=== PATIENT | male | born 1945 | race Caucasian/White ===

== ENCOUNTER 2017-11-06 10:37 | Inpatient (IN) | payer MEDICARE, OTHER ==
[~2017-11-06] VITALS: Ht 188 cm; Wt 91.3 kg
[2017-11-06] MEDS ORDERED: NS IV 1000 ML 1,000 ML IV ONE (10:54)
[2017-11-06 11:23] LABS: BASOPHILS % (AUTO) 0 % (0-10); EOSINOPHILS # (AUTO) 0.1 10^3/uL (0.0-0.3); EOSINOPHILS % (AUTO) 1 % (0-10); HEMATOCRIT 35 % (40-54); HEMOGLOBIN 11.3 G/DL (13.3-17.7); LYMPHOCYTES # (AUTO) 1.5 X 10^3 (1.0-4.0); LYMPHOCYTES % (AUTO) 11 % (12-44); MEAN CORPUSCULAR HEMOGLOBIN 26 PG (25-34); MEAN CORPUSCULAR HGB CONC 32 G/DL (32-36); MEAN CORPUSCULAR VOLUME 82 FL (80-99); MEAN PLATELET VOLUME 8.3 FL (7.4-10.4); MONOCYTES # (AUTO) 0.9 X 10^3 (0.0-1.0); MONOCYTES % (AUTO) 7 % (0-12); NEUTROPHILS % (AUTO) 82 % (42-75); PLATELET COUNT 438 10^3/uL (130-400); RED CELL DISTRIBUTION WIDTH 15.2 % (10.0-14.5); WHITE BLOOD COUNT 13.5 10^3/uL (4.3-11.0)
--- NOTE | 2017-11-06 11:29 | ED General ---
General Chief Complaint: Skin/Wound Problems Stated Complaint: WOUND ISSUE Source of Information: Patient Exam Limitations: No Limitations History of Present Illness Date Seen by Provider: Nov 06, 2017 Time Seen by Provider: 10:49 Initial Comments Here with leg wound on the left that is on the lateral aspect of the stump of the below the knee amputation. He was seen in wound care today and found to have macerated, bleeding, foul-smelling wound with distal stump also with skin maceration and skin changes. The left stump has surrounding erythema completely surrounding the leg below the knee. The right stump has lateral/ posterior maceration. Wound care team is concerned about sepsis. Patient arrives tachycardic but normal blood pressure. Denies recent fever or chills. Denies nausea, vomiting or diarrhea. States he's been eating and drinking okay. Timing/Duration: 1 Week, Getting Worse Severity: Moderate Associated Systoms: No Chest Pain, No Cough, No Fever/Chills, No Nausea/ Vomiting, No Shortness of Air, No Weakness Allergies and Home Medications Allergies Coded Allergies: No Known Drug Allergies (Unverified , 11/06/17) Patient Home Medication List Home Medication List Reviewed: Yes Constitutional: see HPI, No chills, No fever EENTM: no symptoms reported Respiratory: no symptoms reported, No cough, No short of breath Cardiovascular: see HPI, No chest pain, No edema Gastrointestinal: No abdominal pain, No nausea, No vomiting Genitourinary: no symptoms reported Musculoskeletal: see HPI, No muscle pain Skin: change in color, lesions Psychiatric/Neurological: No Symptoms Reported All Other Systems Reviewed Negative Unless Noted: Yes Past Buauxfc-Bctilo-Cxtthv Hx Patient Social History Alcohol Use: Denies Use Recreational Drug Use: No Smoking Status: Never a Smoker Recent Foreign Travel: No Contact w/Someone Who Travel: No Surgeries History of Surgeries: Yes Surgeries: Orthopedic Respiratory History of Respiratory Disorde: No Cardiovascular History of Cardiac Disorders: Yes Cardiac Disorders: High Cholesterol, Hypertension Neurological History of Neurological Disord: No Genitourinary History of Genitourinary Disor: No Gastrointestinal History of Gastrointestinal Di: No Musculoskeletal History of Musculoskeletal Dis: Yes Musculoskeletal Disorders: Amputee Endocrine History of Endocrine Disorders: Yes Endocrine Disorders: Diabetes, Insulin dep Reviewed Nursing Assessment Reviewed/Agree w Nursing PMH: Yes Family Medical History Significant Family History: No Pertinent Family Hx Physical Exam-Suspected Sepsis Physical Exam Vital Signs Vital Signs - First Documented 11/06/17 10:40 Temp 98.6 Pulse 114 Resp 16 B/P (MAP) 147/86 (106) Pulse Ox 96 O2 Delivery Room Air Capillary Refill : General Appearance: No Apparent Distress, WD/WN HEENT: PERRL/EOMI, Pharynx Normal Neck: Non Tender, Supple Respiratory: Lungs Clear, Normal Breath Sounds Cardiovascular: No Murmur, Tachycardia Gastrointestinal: Non Tender, Soft Back: Normal Inspection, No CVA Tenderness, No Vertebral Tenderness Extremity: Other (bilateral below the knee amputation. Bleeding wound to the left lower extremity below the knee on the lateral aspect. Wounds as described below.) Neurologic/Psychiatric: Alert, Oriented x3 Skin: warm/dry, other (erythema noted to the stump on the left lower extremity that surrounds the extremity completely. Macerated wounds lateral and posterior. Distal stump on the left has cauliflower skin appearance that has serous drainage. Both wounds were foul-smelling. Right stump has erythema lateral and posterior with large area of macerated wound posterior that is in better condition than the left leg. Mild tenderness bilateral to the distal lower extremities.) Focused Exam Evaluation Lactate Level Laboratory Tests 11/06/17 11:08: Lactic Acid Level 1.20 Lactic Acid Level Laboratory Tests Test 11/06/17 11:08 Lactic Acid Level 1.20 MMOL/L (0.50-2.00) Progress/Results/Core Measures Suspected Sepsis SIRS Temperature: Pulse: Respiratory Rate: Laboratory Tests 11/06/17 11:08: White Blood Count 13.5H Blood Pressure / Mean: Laboratory Tests 11/06/17 11:08: Lactic Acid Level 1.20 Laboratory Tests 11/06/17 11:08: Creatinine 0.79, INR Comment 1.0, Platelet Count 438H, Total Bilirubin 0.3 Results/Orders Lab Results Laboratory Tests Test 11/06/17 11:08 Range/Units White Blood Count 13.5 H 4.3-11.0 10^3/uL Red Blood Count 4.30 L 4.35-5.85 10^6/uL Hemoglobin 11.3 L 13.3-17.7 G/DL Hematocrit 35 L 40-54 % Mean Corpuscular Volume 82 80-99 FL Mean Corpuscular Hemoglobin 26 25-34 PG Mean Corpuscular Hemoglobin Concent 32 32-36 G/DL Red Cell Distribution Width 15.2 H 10.0-14.5 % Platelet Count 438 H 130-400 10^3/uL Mean Platelet Volume 8.3 7.4-10.4 FL Neutrophils (%) (Auto) 82 H 42-75 % Lymphocytes (%) (Auto) 11 L 12-44 % Monocytes (%) (Auto) 7 0-12 % Eosinophils (%) (Auto) 1 0-10 % Basophils (%) (Auto) 0 0-10 % Neutrophils # (Auto) 11.0 H 1.8-7.8 X 10^3 Lymphocytes # (Auto) 1.5 1.0-4.0 X 10^3 Monocytes # (Auto) 0.9 0.0-1.0 X 10^3 Eosinophils # (Auto) 0.1 0.0-0.3 10^3/uL Basophils # (Auto) 0.0 0.0-0.1 10^3/uL Prothrombin Time 13.2 12.2-14.7 SEC INR Comment 1.0 0.8-1.4 Activated Partial Thromboplast Time 37 H 24-35 SEC Sodium Level 133 L 135-145 MMOL/L Potassium Level 4.5 3.6-5.0 MMOL/L Chloride Level 97 L 98-107 MMOL/L Carbon Dioxide Level 26 21-32 MMOL/L Anion Gap 10 5-14 MMOL/L Blood Urea Nitrogen 12 7-18 MG/DL Creatinine 0.79 0.60-1.30 MG/DL Estimat Glomerular Filtration Rate > 60 BUN/Creatinine Ratio 15 Glucose Level 147 H 70-105 MG/DL Lactic Acid Level 1.20 0.50-2.00 MMOL/L Calcium Level 10.2 H 8.5-10.1 MG/DL Total Bilirubin 0.3 0.1-1.0 MG/DL Aspartate Amino Transf (AST/SGOT) 20 5-34 U/L Alanine Aminotransferase (ALT/SGPT) 14 0-55 U/L Alkaline Phosphatase 75 40-136 U/L Total Protein 7.8 6.4-8.2 GM/DL Albumin 4.1 3.2-4.5 GM/DL My Orders Orders - SANDRA MILAN MD Cbc With Automated Diff (11/06/17 10:54) Comprehensive Metabolic Panel (11/06/17 10:54) Lactic Acid Analyzer (11/06/17 10:54) Blood Culture (11/06/17 10:54) Sputum Culture (11/06/17 10:54) Protime With Inr (11/06/17 10:54) Partial Thromboplastin Time (11/06/17 10:54) Chest 1 View, Ap/Pa Only (11/06/17 10:54) O2 (11/06/17 10:54) Saline Lock/Iv-Start (11/06/17 10:54) Vital Signs Adult Sepsis Patie Q1H (11/06/17 10:54) Remove Rings In Anticipation O (11/06/17 10:54) Saline Lock/Iv-Start (11/06/17 10:54) Ns Iv 1000 Ml (Sodium Chloride 0.9%) (11/06/17 10:54) Cefepime Injection (Maxipime Injection) (11/06/17 12:51) Medications Given in ED Current Medications Medications Dose Ordered Sig/Sommer Route Start Time Stop Time Status Last Admin Dose Admin Sodium Chloride 1,000 ml @ 0 mls/hr Q0M ONCE IV 11/06/17 10:54 11/06/17 10:57 DC 11/06/17 11:25 1,000 MLS/HR Vital Signs/I&O Vital Sign - Last 12Hours 11/06/17 10:40 Temp 98.6 Pulse 114 Resp 16 B/P (MAP) 147/86 (106) Pulse Ox 96 O2 Delivery Room Air Capillary Refill : Progress Note : Progress Note Seen and evaluated. IV, labs, blood cultures, lactic acid and chest x-ray ordered. Normal saline 1 L bolus ordered. Monitor patient. 1230: Labs reviewed. Still concerns for cellulitis. Due to the diabetes and the odor of the wound, Pseudomonas is of concern. Unable to culture anything as this appears mostly topical call. I discussed the case with Dr. Barraza and she accepts patient for admission, inpatient status. Cefepime and clindamycin will be ordered as antibiotic choice given concerns of Pseudomonas and MRSA. I did discuss the case with Dr. Bautista at 1233 and he accepts patient for consult. Patient and family informed and agree with plan. Patient does have some findings of sepsis but does not meet severe sepsis or septic shock criteria does not require high volume fluid resuscitation at this time. Diagnostic Imaging Diagonstic Imaging: Xray Plain Films/CT/US/NM/MRI: chest Comments VIA [facility]. [place], [place] NAME: GEE QUIGLEY [facility] REC#: [id number] PT STATUS: REG ER : 1945 PHYSICIAN: SANDRA MILAN MD ADMIT DATE: 11/06/17/ER Draft Date of Exam:11/06/17 CHEST 1 VIEW, AP/PA ONLY INDICATION: Wound issue. PA chest obtained at 11:22 a.m. FINDINGS: Heart and mediastinal silhouette are normal in appearance. The lungs are clear. There is no pneumothorax or pleural fluid. IMPRESSION: Negative chest. Dictated on workstation # [id number] Dict: 11/06/17 1131 Trans: 11/06/17 1137 [id number] Interpreted by: JUSTIN OROZCO MD Electronically signed by: Departure Communication (Admissions) Time/Spoke to Admitting Phy: 12:30 Time/Spoke to Consulting Phy: 12:33 Impression Impression: Primary Impression: Cellulitis Qualified Codes: L03.119 - Cellulitis of unspecified part of limb Disposition: ADMITTED INPATIENT Condition: Stable Admissions Decision to Admit Reason: Admit from ER (General) Decision to Admit/Date: Nov 06, 2017 Time/Decision to Admit Time: 12:30 Departure-Patient Inst. Referrals: KIANNA BARAJAS (PCP/Family) Primary Care Physician SANDRA MILAN MD Nov 06, 2017 11:29
[2017-11-06 11:35] LABS: PROTHROMBIN TIME PATIENT 13.2 SEC (12.2-14.7)
--- NOTE | 2017-11-06 11:38 | Diagnostic Imaging Report ---
INDICATION: Wound issue. PA chest obtained at 11:22 a.m. FINDINGS: Heart and mediastinal silhouette are normal in appearance. The lungs are clear. There is no pneumothorax or pleural fluid. IMPRESSION: Negative chest. Dictated by: Dictated on workstation # [id number]
[2017-11-06 11:45] LABS: ALANINE AMINOTRANSFERASE 14 U/L (0-55); ALBUMIN 4.1 GM/DL (3.2-4.5); ALKALINE PHOSPHATASE 75 U/L (40-136); BILIRUBIN,TOTAL 0.3 MG/DL (0.1-1.0); BUN/CREATININE RATIO 15; CALCIUM 10.2 MG/DL (8.5-10.1); CARBON DIOXIDE 26 MMOL/L (21-32); CHLORIDE 97 MMOL/L (98-107); CREATININE SERUM 0.79 MG/DL (0.60-1.30); GFR ESTIMATED > 60; GLUCOSE 147 MG/DL (70-105); POTASSIUM 4.5 MMOL/L (3.6-5.0); SODIUM 133 MMOL/L (135-145); TOTAL PROTEIN 7.8 GM/DL (6.4-8.2)
[2017-11-06] MEDS ORDERED: LISI-552 PO (12:24)
[2017-11-06] MEDS ORDERED: CLOP75TA28 PO (12:24)
[2017-11-06] MEDS ORDERED: SIMV20TA3 PO (12:24)
[2017-11-06] MEDS ORDERED: INSN1U SQ ×2 (12:24→15:20)
[2017-11-06] MEDS ORDERED: INSU100V31 SQ ×2 (12:24→15:20)
[2017-11-06] MEDS ORDERED: CEFEPIME INJECTION 2,000 MG in NS (IVPB) 100 ML IV STA (12:51)
[2017-11-06 15:00] VITALS: BP 144/72
[2017-11-06] MEDS ORDERED: NS IV 1000 ML 1,000 ML ONE (15:16)
[2017-11-06] MEDS ORDERED: ASPI-983 PO (15:23)
[2017-11-06] MEDS: NS IV 1000 ML 1,000 ML IV SCH (15:31)
[2017-11-06] MEDS: CLINDAMYCIN 900 MG/50 ML IVPB 50 ML IV SCH ×2 (15:38→23:42)
[2017-11-06] MEDS ORDERED: INFLUENZA TRIvalent 2017-2018 0.5 ML/45 MCG SYR IM ONE (18:45)
[2017-11-06 19:30] VITALS: BP 130/70
--- NOTE | 2017-11-06 20:15 | Consultation ---
History of Present Illness History of Present Illness Patient Consulted On(caio/time) 11/06/17 20:01 Date Seen by Provider: Nov 06, 2017 Time Seen by Provider: 16:05 History of Present Illness consult for cellulitis requested by Dr Barraza. Patient is a 72 year old male with b/l bka. Patient was seen in wound care and sent to ER for further evaluation. Patient states that he has had redness to the skin for about 1 week. Not improving with anything and nothing seeming to make worse. He has had cauliflower skin changes to the distal left stump which began about 3 months ago and at same time had some skin color changes to this area as well. He has some maceration of skin on left lower extremity that is actively oozing. He does have moderate discomfort in the extremity. Denies any fever. Denies n/v sweats chills shortness of breath or chest pain. Allergies and Home Medications Allergies Coded Allergies: No Known Drug Allergies (Unverified , 11/06/17) Home Medications Aspirin 81 Mg Tablet.dr, 81 MG PO DAILY, (Reported) Clopidogrel Bisulfate 75 Mg Tablet, 75 MG PO DAILY, (Reported) Insulin NPH Human Isophane 100 Unit/1 Ml Vial, 25 UNITS SQ DAILY, (Reported) Insulin NPH Human Isophane 100 Unit/1 Ml Vial, 20 UNITS SQ 1930, (Reported) Insulin Regular, Human 100 Unit/1 Ml Vial, 6 UNITS SQ DAILY, (Reported) Insulin Regular, Human 100 Unit/1 Ml Vial, 5 UNITS SQ 1930, (Reported) Lisinopril 20 Mg Tablet, 20 MG PO DAILY, (Reported) Simvastatin 20 Mg Tablet, 20 MG PO HS, (Reported) Patient Home Medication List Home Medication List Reviewed: Yes Past Jkahzel-Citubj-Lbjnbk Hx Patient Social History Alcohol Use: Denies Use Recreational Drug Use: No Smoking Status: Never a Smoker 2nd Hand Smoke Exposure: No Recent Foreign Travel: No Contact w/Someone Who Travel: No Recent Infectious Disease Expo: No Recent Hopitalizations: No Physical Abuse Screen: No Sexual Abuse: No Immunizations Up To Date Date of Pneumonia Vaccine: Jun 08, 2013 Seasonal Allergies Seasonal Allergies: No Surgeries History of Surgeries: Yes Surgeries: Orthopedic Respiratory History of Respiratory Disorde: No Cardiovascular History of Cardiac Disorders: Yes Cardiac Disorders: High Cholesterol, Hypertension Neurological History of Neurological Disord: Yes Neurological Disorders: TIA Genitourinary History of Genitourinary Disor: Yes Genitourinary Disorders: Benign Prostatic Hyperpl Gastrointestinal History of Gastrointestinal Di: No Musculoskeletal History of Musculoskeletal Dis: Yes Musculoskeletal Disorders: Amputee Endocrine History of Endocrine Disorders: Yes Endocrine Disorders: Diabetes, Insulin dep HEENT History of HEENT Disorders: Yes (WEARS GLASSES) Cancer History of Cancer: No Psychosocial History of Psychiatric Problem: No Integumentary History of Skin or Integumenta: No Blood Transfusions History of Blood Disorders: No Reviewed Nursing Assessment Reviewed/Agree w Nursing PMH: Yes Family Medical History Significant Family History: No Pertinent Family Hx Review of Systems-General Constitutional: no symptoms reported EENTM: no symptoms reported Respiratory: no symptoms reported Cardiovascular: no symptoms reported Gastrointestinal: no symptoms reported Genitourinary: no symptoms reported Musculoskeletal: see HPI Skin: see HPI Psychiatric/Neurological: No Symptoms Reported Physical Exam-General Problems Physical Exam Vital Signs Vital Signs - First Documented Capillary Refill : Greater Than 3 Seconds General Appearance: no apparent distress HEENT: normal ENT inspection Neck: supple, normal inspection Respiratory: no respiratory distress, no accessory muscle use Cardiovascular: tachycardia Gastrointestinal: non tender, soft, no organomegaly, no pulsatile mass Rectal: deferred Back: normal inspection Extremities: other (left lower ext c bka surrounding errythematous changes and slight maceration to skin with oozing of blood from pinpoint break in skin. 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 nml as tested, no motor/sensory deficits, alert, normal mood/affect, oriented x 3 Skin: other (erythema and skin changes as noted above) Lymphatic: no adenopathy Data Review Labs Laboratory Tests 11/06/17 11:08: White Blood Count 13.5H, Red Blood Count 4.30L, Hemoglobin 11.3L, Hematocrit 35L , Mean Corpuscular Volume 82, Mean Corpuscular Hemoglobin 26, Mean Corpuscular Hemoglobin Concent 32, Red Cell Distribution Width 15.2H, Platelet Count 438H, Mean Platelet Volume 8.3, Neutrophils (%) (Auto) 82H, Lymphocytes (%) (Auto) 11L , Monocytes (%) (Auto) 7, Eosinophils (%) (Auto) 1, Basophils (%) (Auto) 0, Neutrophils # (Auto) 11.0H, Lymphocytes # (Auto) 1.5, Monocytes # (Auto) 0.9, Eosinophils # (Auto) 0.1, Basophils # (Auto) 0.0, Prothrombin Time 13.2, INR Comment 1.0, Activated Partial Thromboplast Time 37H, Sodium Level 133L, Potassium Level 4.5, Chloride Level 97L, Carbon Dioxide Level 26, Anion Gap 10, Blood Urea Nitrogen 12, Creatinine 0.79, Estimat Glomerular Filtration Rate > 60 , BUN/Creatinine Ratio 15, Glucose Level 147H, Lactic Acid Level 1.20, Calcium Level 10.2H, Total Bilirubin 0.3, Aspartate Amino Transf (AST/SGOT) 20, Alanine Aminotransferase (ALT/SGPT) 14, Alkaline Phosphatase 75, Total Protein 7.8, Albumin 4.1 Assessment/Plan Assessment/Plan Assessment/Plan bilateral cellulitis history of bilateral below knee amputations dm Patient with slight ooze from left lower extremity at macerated skin, bandage applied I don't see any other drainage at this time, at the distal stump I feel is more chronic skin changes continue with IV antibiotics, medical management will follow no surgical intervention at this time. Clinical Quality Measures DVT/VTE Risk/Contraindication: Risk Factor Score Per Nursin RFS Level Per Nursing on Admit: 3=High GALO GRIFFIN DO Nov 06, 2017 20:15
[2017-11-06] MEDS: inSUlin (REGULAR) HUMAN 1 UNIT/0.01 ML (CHARGE PER UNIT) SC SCH (20:50)
[2017-11-06] MEDS: CEFEPIME IV SCH ×2 (21:05)
[2017-11-06] MEDS: NS IV SCH ×2 (21:05)
[2017-11-07] VITALS (7 sets, daily range): BP systolic 114–152; BP diastolic 57–71
[2017-11-07] MEDS: NS IV 1000 ML 1,000 ML IV SCH ×4 (02:32→23:46)
[2017-11-07] MEDS: CEFEPIME IV SCH ×6 (05:22→20:59)
[2017-11-07] MEDS: NS IV SCH ×6 (05:22→20:59)
[2017-11-07] MEDS: inSUlin (REGULAR) HUMAN 1 UNIT/0.01 ML (CHARGE PER UNIT) SC SCH ×4 (05:25→21:02)
[2017-11-07 06:39] LABS: BASOPHILS % (AUTO) 0 % (0-10); EOSINOPHILS # (AUTO) 0.2 10^3/uL (0.0-0.3); EOSINOPHILS % (AUTO) 3 % (0-10); HEMATOCRIT 33 % (40-54); HEMOGLOBIN 10.1 G/DL (13.3-17.7); LYMPHOCYTES # (AUTO) 1.6 X 10^3 (1.0-4.0); LYMPHOCYTES % (AUTO) 26 % (12-44); MEAN CORPUSCULAR HEMOGLOBIN 26 PG (25-34); MEAN CORPUSCULAR HGB CONC 31 G/DL (32-36); MEAN CORPUSCULAR VOLUME 83 FL (80-99); MEAN PLATELET VOLUME 8.3 FL (7.4-10.4); MONOCYTES # (AUTO) 0.7 X 10^3 (0.0-1.0); MONOCYTES % (AUTO) 12 % (0-12); NEUTROPHILS # (AUTO) 3.6 X 10^3 (1.8-7.8); NEUTROPHILS % (AUTO) 59 % (42-75); PLATELET COUNT 368 10^3/uL (130-400); RED BLOOD COUNT 3.91 10^6/uL (4.35-5.85); RED CELL DISTRIBUTION WIDTH 15.4 % (10.0-14.5); WHITE BLOOD COUNT 6.1 10^3/uL (4.3-11.0)
[2017-11-07] MEDS: CLINDAMYCIN 900 MG/50 ML IVPB 50 ML IV SCH ×3 (06:57→23:28)
[2017-11-07 07:07] LABS: ALANINE AMINOTRANSFERASE 14 U/L (0-55); ALBUMIN 3.5 GM/DL (3.2-4.5); ALKALINE PHOSPHATASE 62 U/L (40-136); BILIRUBIN,TOTAL 0.3 MG/DL (0.1-1.0); BUN/CREATININE RATIO 14; CALCIUM 8.7 MG/DL (8.5-10.1); CARBON DIOXIDE 26 MMOL/L (21-32); CHLORIDE 105 MMOL/L (98-107); CREATININE SERUM 0.71 MG/DL (0.60-1.30); GFR ESTIMATED > 60; GLUCOSE 99 MG/DL (70-105); POTASSIUM 4.1 MMOL/L (3.6-5.0); SODIUM 139 MMOL/L (135-145); TOTAL PROTEIN 6.7 GM/DL (6.4-8.2)
--- NOTE | 2017-11-07 08:04 | History & Physicial (CHS) ---
HPI Attending Physician Chasity Payton DO PCP Scott Araujo Cfnp Consult Date of Admission Nov 06, 2017 at 13:00 Home Medications Home Medications Reviewed patient Home Medication Reconciliation performed by pharmacy medication reconciliations mechanical assembly technician and/or nursing. Patients Allergies have been reviewed. Allergies Coded Allergies: No Known Drug Allergies (Unverified , 11/06/17) TJF-Anqrov-Tahqte Hx Patient Social History Alcohol Use: Denies Use Recreational Drug Use: No Smoking Status: Never a Smoker 2nd Hand Smoke Exposure: No Recent Foreign Travel: No Contact w/other who traveled: No Recent Hopitalizations: No Recent Infectious Disease Expo: No Physical Abuse Screen: No Sexual Abuse: No Immunizations Up To Date Date of Pneumonia Vaccine: Jun 08, 2013 Family Medical History Significant Family History: No Pertinent Family Hx Physical Exam-(CH[facility]) Physical Exam Vital Signs VS - Last 72 Hours, by Label 11/06/17 11/06/17 11/06/17 11/06/17 10:40 10:40 15:00 15:00 Temp 98.6 98.6 97.2 Pulse 114 101 104 Resp 16 18 20 B/P (MAP) 147/86 (106) 148/80 144/72 (96) Pulse Ox 96 96 93 96 O2 Delivery Room Air Room Air Room Air 11/06/17 11/06/17 11/07/17 11/07/17 19:30 20:45 00:00 04:04 Temp 97.1 97.5 98.1 Pulse 99 90 85 Resp 20 18 16 B/P (MAP) 130/70 (90) 133/71 (91) 132/65 (87) Pulse Ox 96 96 96 97 O2 Delivery Room Air Room Air Room Air Capillary Refill : Greater Than 3 Seconds Clinical Quality Measures DVT/VTE Risk/Contraindication: Risk Factor Score Per Nursin RFS Level Per Nursing on Admit: 3=High CHASITY PAYTON DO Nov 07, 2017 08:03
--- NOTE | 2017-11-07 14:43 | Physical Therapy Evaluation ---
PT Evaluation-General Medical Diagnosis Admission Date Nov 06, 2017 at 13:00 Medical Diagnosis: cellulitis Onset Date: Nov 06, 2017 Therapy Diagnosis Therapy Diagnosis: impaired mobility Height/Weight Height (Feet): 6 Height (Inches): 2.00 Weight (Pounds): 201 Weight (Ounces): 5.0 Precautions Precautions/Isolations: Fall Prevention, Standard Precautions Weight Bear Status Right Lower Extremity: Right Non Weight Bearing Left Lower Extremity: Left Non Weight Bearing Referral Physician: Chasity Barraza DO Reason for Referral: Evaluation/Treatment Medical History Pertinent Medical History: DM, HTN Additional Medical History high cholesterol, TIA, BPH, previous bilateral BKA Current History seen in wound care and sent to ER for further evaluation -> bilateral cellulitis Social History Home: Single Level Current Living Status: Children Entry Into Home: Stairs With Railing Patient states his niece lives with him. Prior/Core FIM Prior Level of Function Functional [place] Measure 0=Not Assessed/NA 4=Minimal Assistance 1=Total Assistance 5=Supervision or Setup 2=Maximal Assistance 6=Modified [place] 3=Moderate Assistance 7=Complete [place] Bed Mobility: 7 Transfers (B,C,W/C) (FIM): 6 Gait: 6 Patient states he normally uses bilateral prosthesis and a single point cane to ambulate. PT Evaluation-Current Subjective Patient in wheelchair at bedside pre tx, agrees to PT, no complaints of pain. Patient has bilateral BKA, a bandage on his left leg below the knee and a cauliflower formation at the end of his left stump. Pt/Family Goals "to get my infection better" Objective Patient Orientation: Person, Place, Situation Attachments: IV ROM/Strength ROM Lower Extremities WNL Strength Lower Extremities NT due to infection Neuromuscular (Tone, Coordination, Reflexes) NT Sensory Vision: Functional Hearing: Functional Sensation Right Lower Extremit: Intact Sensation Left Lower Extremity: Intact Sensation Lower Extremities Patient had intact light touch sensation on both stumps. Transfers Functional [place] Measure 0=Not Assessed/NA 4=Minimal Assistance 1=Total Assistance 5=Supervision or Setup 2=Maximal Assistance 6=Modified [place] 3=Moderate Assistance 7=Complete [place] Transfers (B, C, W/C) (FIM): 5 Scootin Rollin Supine to/from Sit: 6 bed t/f WC(FIM only if WC use): 5 Patient went from bed to wheelchair using only his arms with SBA, he did not need a sliding board. He says that his how he does it at home. Wheelchair Training Wheelchair (FIM): 6 Assessment/Needs Patient states that he has not had a decline in function and he performs transfers and bed mobility just like he did before coming to the hospital. Patient is a his normal level of functional mobility. PT will discharge patient at this time. Rehab Potential: Good PT Plan Problem List Problem List: Other Treatment/Plan Treatment Plan: Discontinue PT Treatment Plan: Other Treatment Duration: Nov 07, 2017 Frequency: Estimated Hrs Per Day: Other Patient and/or Family Agrees t: Yes Safety Risks/Education Patient Education: Transfer Techniques, Correct Positioning, Safety Issues Teaching Recipient: Patient Teaching Methods: Demonstration, Discussion Response to Teaching: Verbalize Understanding Discharge Recommendations Plan DC Therapy D/C Recommendations: Home w/ Family Support Time/GCodes Time In: 1320 Time Out: 1335 Total Billed Treatment Time: 15 Total Billed Treatment 1 visit YAAKOV ETIENNE PT Nov 07, 2017 14:43
--- NOTE | 2017-11-07 16:27 | Progress Note ---
Subjective Date Seen by Provider: Nov 07, 2017 Time Seen by Provider: 11:36 Subjective/Events-last exam Patient doing the same today. Minimal discomfort to the lower extremities. Patient states that the redness seems to have gone down. The bleeding is stopped from the left lower extremity. His white count has improved. He denies any nausea vomiting fever sweats chills shortness of breath or chest pain. Focused Exam Evaluation Lactate Level Laboratory Tests 11/06/17 11:08: Lactic Acid Level 1.20 Objective Exam Vital Signs Date Time Temp Pulse Resp B/P (MAP) Pulse Ox O2 Delivery O2 Flow Rate FiO2 11/07/17 15:33 98.2 82 18 117/59 (78) 97 Room Air 11/07/17 12:00 98.4 96 18 131/69 (89) 96 Room Air 11/07/17 08:00 95 Room Air 11/07/17 07:50 98.3 85 16 134/66 (88) 95 11/07/17 04:04 98.1 85 16 132/65 (87) 97 Room Air 11/07/17 00:00 97.5 90 18 133/71 (91) 96 Room Air 11/06/17 20:45 96 Room Air 11/06/17 19:30 97.1 99 20 130/70 (90) 96 I & O 11/07/17 07:00 Intake Total 4640 ml Output Total 2725 ml Balance 1915 ml Capillary Refill : Greater Than 3 Seconds General Appearance: No Apparent Distress, WD/WN HEENT: PERRL/EOMI, Pharynx Normal Neck: Non Tender, Supple Cardiovascular: Regular Rate, Rhythm Gastrointestinal: non tender, soft, no organomegaly, no pulsatile mass Extremity: Other (bilateral below the knee amputation. Bleeding wound has stopped to the left lower extremity below the knee on the lateral aspect. Still some macerated-appearing skin and less erythema. Cauliflower-appearing stump on the left lower extremity, still with some slight skin discoloration going lateral to posteriorly. Right lower extremity with decreased erythema on the lateral aspect.) Neurologic/Psychiatric: Alert, Oriented x3 Skin: Erythema (As noted above) Results Lab Laboratory Tests 11/06/17 20:20: Glucometer 129H 11/07/17 05:23: Glucometer 89 11/07/17 05:50: White Blood Count 6.1, Red Blood Count 3.91L, Hemoglobin 10.1L, Hematocrit 33L, Mean Corpuscular Volume 83, Mean Corpuscular Hemoglobin 26, Mean Corpuscular Hemoglobin Concent 31L, Red Cell Distribution Width 15.4H, Platelet Count 368, Mean Platelet Volume 8.3, Neutrophils (%) (Auto) 59, Lymphocytes (%) (Auto) 26, Monocytes (%) (Auto) 12, Eosinophils (%) (Auto) 3, Basophils (%) (Auto) 0, Neutrophils # (Auto) 3.6, Lymphocytes # (Auto) 1.6, Monocytes # (Auto) 0.7, Eosinophils # (Auto) 0.2, Basophils # (Auto) 0.0, Sodium Level 139, Potassium Level 4.1, Chloride Level 105, Carbon Dioxide Level 26, Anion Gap 8, Blood Urea Nitrogen 10, Creatinine 0.71, Estimat Glomerular Filtration Rate > 60, BUN/ Creatinine Ratio 14, Glucose Level 99, Calcium Level 8.7, Total Bilirubin 0.3, Aspartate Amino Transf (AST/SGOT) 18, Alanine Aminotransferase (ALT/SGPT) 14, Alkaline Phosphatase 62, Total Protein 6.7, Albumin 3.5 11/07/17 10:11: Glucometer 224H 11/07/17 14:43: Glucometer 316H Assessment/Plan Assessment/Plan Assessment/Plan bilateral cellulitis history of bilateral below knee amputations dm We'll continue medical management with IV antibiotics. The bleeding is stopped from the macerated wound on the left lower extremity. No drainage from wounds. No surgical intervention at this time. Wound care Clinical Quality Measures DVT/VTE Risk/Contraindication: Risk Factor Score Per Nursin RFS Level Per Nursing on Admit: 3=High GALO GRIFFIN DO Nov 07, 2017 16:27
--- NOTE | 2017-11-07 18:47 | Wound Care Assessment ---
Wound Care Assessment Date Seen by Provider: Nov 07, 2017 Time Seen by Provider: 18:40 Chief Complaint Infected L BKA. HPI The patient is a 72 year old male with long-standing bilateral BKA. The patient is fully ambulatory with prostheses. The patient was admitted from advanced wound care yesterday through the ER, due to a grossly cellulitic and weeping, excoriated, macerated L BKA stump. The appearance of the wound is much improved on current antibiotics, but the cellulitis is not resolved enough to switch to oral meds. Curiously, the weight bearing end of the BKA is covered with a large verruca -- 14.0 x 13.0 x 1.1 cm. The maceration has improved with the patient at bedrest with the prosthesis off. Past Medical History: Admits Diabetes Type II, Admits Peripheral Artery Disease Bilateral BKA in remote past. Smoking Status: Never a Smoker Recreational Drug Use: No Alcohol Use: Denies Use Review of Systems General: No Chills Pulmonary: No Dyspnea Cardiovascular: No: Chest Pain Exam Vital Signs Date Time Temp Pulse Resp B/P (MAP) Pulse Ox O2 Delivery O2 Flow Rate FiO2 11/07/17 15:33 98.2 82 18 117/59 (78) 97 Room Air Capillary Refill : Greater Than 3 Seconds General Appearance: no apparent distress Respiratory: no respiratory distress Skin: other (large Verrucous lesion of L BKA stump, 14.0 x 13.0 x 1.1 cm, warty appearance.) Results Laboratory Tests 11/06/17 20:20: Glucometer 129H 11/07/17 05:23: Glucometer 89 11/07/17 05:50: White Blood Count 6.1, Red Blood Count 3.91L, Hemoglobin 10.1L, Hematocrit 33L, Mean Corpuscular Volume 83, Mean Corpuscular Hemoglobin 26, Mean Corpuscular Hemoglobin Concent 31L, Red Cell Distribution Width 15.4H, Platelet Count 368, Mean Platelet Volume 8.3, Neutrophils (%) (Auto) 59, Lymphocytes (%) (Auto) 26, Monocytes (%) (Auto) 12, Eosinophils (%) (Auto) 3, Basophils (%) (Auto) 0, Neutrophils # (Auto) 3.6, Lymphocytes # (Auto) 1.6, Monocytes # (Auto) 0.7, Eosinophils # (Auto) 0.2, Basophils # (Auto) 0.0, Sodium Level 139, Potassium Level 4.1, Chloride Level 105, Carbon Dioxide Level 26, Anion Gap 8, Blood Urea Nitrogen 10, Creatinine 0.71, Estimat Glomerular Filtration Rate > 60, BUN/ Creatinine Ratio 14, Glucose Level 99, Calcium Level 8.7, Total Bilirubin 0.3, Aspartate Amino Transf (AST/SGOT) 18, Alanine Aminotransferase (ALT/SGPT) 14, Alkaline Phosphatase 62, Total Protein 6.7, Albumin 3.5 11/07/17 10:11: Glucometer 224H 11/07/17 14:43: Glucometer 316H Microbiology 11/06/17 Blood Culture - Preliminary, Resulted No growth Microbiology 11/06/17 Blood Culture - Preliminary, Resulted No growth 11/06/17 Blood Culture - Preliminary, Resulted No growth Assessment/Plan/Dx 1. Cellulitis of L BKA stump. 2. Verrucous lesion of L BKA stump, contributing moisture to wound environment. 3. R/O malignancy/atypical cutaneous infection. Plan: The patient was recommended to have diagnostic biopsy for histology and culture. Following a time out in which the patient and site were confirmed by two methods, the area was painted with Betadine solution, anesthetized with 1% Lidocaine injectable. Multiple punch biopsies were obtained from the lateral anterior portion of the lesion. These were submitted for histology, aerobic, anaerobic, and fungal cultures. Minimal bleeding was controlled with pressure. The patient tolerated the procedure well with minimal pain during and after the procedure. KIANNA PERES MD Nov 07, 2017 18:47
[2017-11-07] MEDS: SIMvastatin 20 MG (ZOCOR) TAB PO SCH (20:59)
[2017-11-08] MEDS: CEFEPIME IV SCH ×6 (05:20→22:06)
[2017-11-08] MEDS: NS IV SCH ×6 (05:20→22:06)
[2017-11-08] MEDS: inSUlin (REGULAR) HUMAN 1 UNIT/0.01 ML (CHARGE PER UNIT) SC SCH ×4 (06:40→20:39)
[2017-11-08] MEDS: CLINDAMYCIN 900 MG/50 ML IVPB 50 ML IV SCH ×3 (06:40→23:32)
[2017-11-08 06:56] LABS: BASOPHILS % (AUTO) 0 % (0-10); EOSINOPHILS # (AUTO) 0.3 10^3/uL (0.0-0.3); EOSINOPHILS % (AUTO) 4 % (0-10); HEMATOCRIT 32 % (40-54); HEMOGLOBIN 10.3 G/DL (13.3-17.7); LYMPHOCYTES # (AUTO) 1.4 X 10^3 (1.0-4.0); LYMPHOCYTES % (AUTO) 25 % (12-44); MEAN CORPUSCULAR HEMOGLOBIN 26 PG (25-34); MEAN CORPUSCULAR HGB CONC 32 G/DL (32-36); MEAN CORPUSCULAR VOLUME 81 FL (80-99); MEAN PLATELET VOLUME 7.9 FL (7.4-10.4); MONOCYTES # (AUTO) 0.6 X 10^3 (0.0-1.0); MONOCYTES % (AUTO) 11 % (0-12); NEUTROPHILS # (AUTO) 3.4 X 10^3 (1.8-7.8); NEUTROPHILS % (AUTO) 60 % (42-75); PLATELET COUNT 365 10^3/uL (130-400); RED BLOOD COUNT 3.97 10^6/uL (4.35-5.85); RED CELL DISTRIBUTION WIDTH 15.3 % (10.0-14.5); WHITE BLOOD COUNT 5.7 10^3/uL (4.3-11.0)
[2017-11-08 07:19] LABS: BUN/CREATININE RATIO 14; CALCIUM 8.8 MG/DL (8.5-10.1); CARBON DIOXIDE 26 MMOL/L (21-32); CHLORIDE 105 MMOL/L (98-107); CREATININE SERUM 0.69 MG/DL (0.60-1.30); GFR ESTIMATED > 60; GLUCOSE 163 MG/DL (70-105); MAGNESIUM 2.1 MG/DL (1.8-2.4); POTASSIUM 4.3 MMOL/L (3.6-5.0); SODIUM 136 MMOL/L (135-145)
[2017-11-08 08:00] VITALS: BP 157/75
[2017-11-08] MEDS: CLOPIDOGREL 75 MG (PLAVIX) TABLET PO SCH (09:09)
[2017-11-08] MEDS: ASPIRIN E.C. 81 MG (ECOTRIN) TAB PO SCH (09:09)
[2017-11-08] MEDS: lisINopril 20 MG (PRINIVIL) TABLET PO SCH (09:09)
[2017-11-08] MEDS: NS IV 1000 ML 1,000 ML IV SCH ×2 (11:17→23:32)
--- NOTE | 2017-11-08 11:24 | Progress Note (SOAP) ---
Focused Exam Evaluation Lactate Level Laboratory Tests 11/06/17 11:08: Lactic Acid Level 1.20 Objective Exam Last Set of Vital Signs Vital Signs Date Time Temp Pulse Resp B/P (MAP) Pulse Ox O2 Delivery O2 Flow Rate FiO2 11/08/17 08:00 Room Air 11/07/17 23:39 97.7 83 16 114/57 (76) 96 Capillary Refill : Greater Than 3 Seconds I&O Intake and Output 11/08/17 00:00 Intake Total 5930 ml Output Total 5275 ml Balance 655 ml Intake Oral 2380 ml IV Total 3550 ml Output Urine Total 5275 ml # Bowel Movements 2 Results/Procedures Lab Laboratory Tests 11/07/17 14:43: Glucometer 316H 11/07/17 20:14: Glucometer 238H 11/08/17 05:25: Glucometer 156H 11/08/17 06:45: White Blood Count 5.7, Red Blood Count 3.97L, Hemoglobin 10.3L, Hematocrit 32L, Mean Corpuscular Volume 81, Mean Corpuscular Hemoglobin 26, Mean Corpuscular Hemoglobin Concent 32, Red Cell Distribution Width 15.3H, Platelet Count 365, Mean Platelet Volume 7.9, Neutrophils (%) (Auto) 60, Lymphocytes (%) (Auto) 25, Monocytes (%) (Auto) 11, Eosinophils (%) (Auto) 4, Basophils (%) (Auto) 0, Neutrophils # (Auto) 3.4, Lymphocytes # (Auto) 1.4, Monocytes # (Auto) 0.6, Eosinophils # (Auto) 0.3, Basophils # (Auto) 0.0, Sodium Level 136, Potassium Level 4.3, Chloride Level 105, Carbon Dioxide Level 26, Anion Gap 5, Blood Urea Nitrogen 10, Creatinine 0.69, Estimat Glomerular Filtration Rate > 60, BUN/ Creatinine Ratio 14, Glucose Level 163H, Calcium Level 8.8, Magnesium Level 2.1 , C-Reactive Protein High Sensitivity 1.71H 11/08/17 10:40: Glucometer 274H Microbiology 11/06/17 Blood Culture - Preliminary, Resulted No growth Clinical Quality Measures DVT/VTE Risk/Contraindication: Risk Factor Score Per Nursin RFS Level Per Nursing on Admit: 3=BERNARD Galaviz DO Nov 08, 2017 11:24
--- NOTE | 2017-11-08 13:11 | Progress Note ---
Subjective Date Seen by Provider: Nov 08, 2017 Time Seen by Provider: 09:36 Subjective/Events-last exam No new complaints. Cellulitis is improving. No significant pain. Denies n/v fever sweats chills shortness of breath or chest pain. Hgb stable WBC down. Focused Exam Evaluation Lactate Level Laboratory Tests 11/06/17 11:08: Lactic Acid Level 1.20 Objective Exam Vital Signs Date Time Temp Pulse Resp B/P (MAP) Pulse Ox O2 Delivery O2 Flow Rate FiO2 11/08/17 08:00 Room Air 11/07/17 23:39 97.7 83 16 114/57 (76) 96 Room Air 11/07/17 19:55 96 Room Air 11/07/17 19:07 97.2 90 18 152/71 (98) 97 Room Air 11/07/17 15:33 98.2 82 18 117/59 (78) 97 Room Air I & O 11/08/17 07:00 Intake Total 4880 ml Output Total 6325 ml Balance -1445 ml Capillary Refill : Greater Than 3 Seconds General Appearance: No Apparent Distress, WD/WN HEENT: PERRL/EOMI, Pharynx Normal Neck: Non Tender, Supple Cardiovascular: Regular Rate, Rhythm Gastrointestinal: non tender, soft, no organomegaly, no pulsatile mass Extremity: Other (bilateral below the knee amputation. Still some macerated- appearing skin and erythema less. Cauliflower-appearing stump on the left lower extremity, still with some slight skin discoloration going lateral to posteriorly. Right lower extremity with decreased erythema on the lateral aspect.) Neurologic/Psychiatric: Alert, Oriented x3 Skin: Erythema (As noted above) Lymphatic: No Adenopathy Results Lab Laboratory Tests 11/07/17 14:43: Glucometer 316H 11/07/17 20:14: Glucometer 238H 11/08/17 05:25: Glucometer 156H 11/08/17 06:45: White Blood Count 5.7, Red Blood Count 3.97L, Hemoglobin 10.3L, Hematocrit 32L, Mean Corpuscular Volume 81, Mean Corpuscular Hemoglobin 26, Mean Corpuscular Hemoglobin Concent 32, Red Cell Distribution Width 15.3H, Platelet Count 365, Mean Platelet Volume 7.9, Neutrophils (%) (Auto) 60, Lymphocytes (%) (Auto) 25, Monocytes (%) (Auto) 11, Eosinophils (%) (Auto) 4, Basophils (%) (Auto) 0, Neutrophils # (Auto) 3.4, Lymphocytes # (Auto) 1.4, Monocytes # (Auto) 0.6, Eosinophils # (Auto) 0.3, Basophils # (Auto) 0.0, Sodium Level 136, Potassium Level 4.3, Chloride Level 105, Carbon Dioxide Level 26, Anion Gap 5, Blood Urea Nitrogen 10, Creatinine 0.69, Estimat Glomerular Filtration Rate > 60, BUN/ Creatinine Ratio 14, Glucose Level 163H, Calcium Level 8.8, Magnesium Level 2.1 , C-Reactive Protein High Sensitivity 1.71H 11/08/17 10:40: Glucometer 274H Microbiology 11/06/17 Blood Culture - Preliminary, Resulted No growth Assessment/Plan Assessment/Plan Assessment/Plan bilateral cellulitis history of bilateral below knee amputations dm We'll continue antibiotics. No drainage from wounds. No surgical intervention at this time. Wound care Clinical Quality Measures DVT/VTE Risk/Contraindication: Risk Factor Score Per Nursin RFS Level Per Nursing on Admit: 3=High GALO GRIFFIN DO Nov 08, 2017 13:11
[2017-11-08 16:13] VITALS: BP 137/71
[2017-11-08] MEDS ORDERED: LIDOCAINE 1% INJ 20 ML (XYLOCAINE) VIAL ONE (17:09)
[2017-11-08] MEDS: SIMvastatin 20 MG (ZOCOR) TAB PO SCH (20:39)
[2017-11-09] VITALS: BP 125/65
[2017-11-09 05:45] LABS: BASOPHILS % (AUTO) 1 % (0-10); EOSINOPHILS # (AUTO) 0.3 10^3/uL (0.0-0.3); EOSINOPHILS % (AUTO) 4 % (0-10); HEMATOCRIT 32 % (40-54); LYMPHOCYTES # (AUTO) 1.5 X 10^3 (1.0-4.0); LYMPHOCYTES % (AUTO) 25 % (12-44); MEAN CORPUSCULAR HEMOGLOBIN 26 PG (25-34); MEAN CORPUSCULAR HGB CONC 32 G/DL (32-36); MEAN CORPUSCULAR VOLUME 81 FL (80-99); MEAN PLATELET VOLUME 8.1 FL (7.4-10.4); MONOCYTES # (AUTO) 0.7 X 10^3 (0.0-1.0); MONOCYTES % (AUTO) 12 % (0-12); NEUTROPHILS # (AUTO) 3.5 X 10^3 (1.8-7.8); NEUTROPHILS % (AUTO) 58 % (42-75); PLATELET COUNT 364 10^3/uL (130-400); RED BLOOD COUNT 3.88 10^6/uL (4.35-5.85); RED CELL DISTRIBUTION WIDTH 15.1 % (10.0-14.5)
[2017-11-09 06:02] LABS: BUN/CREATININE RATIO 10; CALCIUM 8.6 MG/DL (8.5-10.1); CARBON DIOXIDE 26 MMOL/L (21-32); CHLORIDE 107 MMOL/L (98-107); CREATININE SERUM 0.67 MG/DL (0.60-1.30); GFR ESTIMATED > 60; GLUCOSE 126 MG/DL (70-105); MAGNESIUM 2.2 MG/DL (1.8-2.4); POTASSIUM 4.1 MMOL/L (3.6-5.0); SODIUM 139 MMOL/L (135-145)
[2017-11-09] MEDS: inSUlin (REGULAR) HUMAN 1 UNIT/0.01 ML (CHARGE PER UNIT) SC SCH ×3 (06:20→14:59)
[2017-11-09] MEDS: CEFEPIME IV SCH ×4 (06:27→14:39)
[2017-11-09] MEDS: NS IV SCH ×4 (06:27→14:39)
[2017-11-09] MEDS: CLINDAMYCIN 900 MG/50 ML IVPB 50 ML IV SCH (07:35)
[2017-11-09 08:00] VITALS: BP 130/63
--- NOTE | 2017-11-09 08:07 | Discharge Summary ---
Diagnosis/Chief Complaint Date of Admission Nov 06, 2017 at 13:00 Date of Discharge Discharge Summary-Simple/Stand Consultations Discharge Physical Examination Allergies: Coded Allergies: No Known Drug Allergies (Unverified , 11/06/17) Vitals & I&Os Vital Sign - Last 12Hours Date Time Temp Pulse Resp B/P (MAP) Pulse Ox O2 Delivery O2 Flow Rate FiO2 11/09/17 00:00 97.6 79 17 125/65 (85) 95 Room Air Intake and Output 11/09/17 00:00 Intake Total 1630 ml Output Total 2375 ml Balance -745 ml Hospital Course See final discharge diagnosis. Discharge Instructions to patient/family Please see electronic discharge instructions given to patient. Discharge Medications Reviewed and agree with Discharge Medication list on patient's Discharge Instruction sheet Clinical Quality Measures DVT/VTE Risk/Contraindication: Risk Factor Score Per Nursin RFS Level Per Nursing on Admit: 3=High BERNARD PAYTON DO Nov 09, 2017 08:07
[2017-11-09] MEDS: lisINopril 20 MG (PRINIVIL) TABLET PO SCH (09:19)
[2017-11-09] MEDS: ASPIRIN E.C. 81 MG (ECOTRIN) TAB PO SCH (09:19)
[2017-11-09] MEDS: CLOPIDOGREL 75 MG (PLAVIX) TABLET PO SCH (09:19)
[2017-11-09] MEDS: NS IV 1000 ML 1,000 ML IV SCH (11:39)
[2017-11-09] MEDS ORDERED: CLIN300C11 PO (12:45)
[2017-11-09] MEDS ORDERED: CEPH-507 PO (12:45)
--- NOTE | 2017-11-09 12:52 | Discharge Instructions ---
Discharge [facility] Discharge Medications New, Converted or Re-Newed RX: Transmitted to Pharmacy New Medications: Cephalexin (Keflex) 500 Mg Capsule 500 MG PO TID for 3 Days, #9 CAP 0 Refills Clindamycin HCl (Clindamycin HCl) 300 Mg Capsule 300 MG PO TID for 3 Days, #9 CAP 0 Refills Continued Medications: Aspirin (Aspirin EC) 81 Mg Tablet.dr 81 MG PO DAILY, TAB Clopidogrel Bisulfate (Clopidogrel) 75 Mg Tablet 75 MG PO DAILY Insulin NPH Human Isophane (Novolin N) 100 Unit/1 Ml Vial 25 UNITS SQ DAILY Insulin NPH Human Isophane (Novolin N) 100 Unit/1 Ml Vial 20 UNITS SQ 1930, VIAL Insulin Regular, Human (Novolin R) 100 Unit/1 Ml Vial 6 UNITS SQ DAILY Insulin Regular, Human (Novolin R) 100 Unit/1 Ml Vial 5 UNITS SQ 1930, VIAL Lisinopril (Lisinopril) 20 Mg Tablet 20 MG PO DAILY Simvastatin (Simvastatin) 20 Mg Tablet 20 MG PO HS Patient Instructions Patient Instructions -keep all follow up appointments -medication as directed Goal/Follow Up Appt: Dr. Snell - 11/13 as scheduled Lele Araujo - 11/13 at 1:[address] Rdz - next week Return to The Hospital For: chest pain or pressure, shortness of breath, nausea or vomiting that makes you unable to keep down medications or clear liquids for more than 12 hours, fever >101 unrelieved by tylenol or ibuprofen, pain uncontrolled by normally taken medications, if directed by stone rougher provider, or with any emergent complaints or concerns Activity & Diet Discharge Diet: ADA Diet Activity as Tolerated: Yes Orders-Post D/C & Referrals Dermatology Copy Copies To 1: [facility]/BERNARD SOTELO DO Nov 09, 2017 12:52
[2017-11-09 16:11] VITALS: BP 130/63
--- NOTE | 2017-11-09 20:54 | Progress Note ---
Subjective Date Seen by Provider: Nov 09, 2017 Time Seen by Provider: 09:17 Subjective/Events-last exam Patient leg doing well. Less erythema. Not having any pain in the legs. No new complaints. Denies n/v fever sweats chills shortness of breath or chest pain. Objective Exam Vital Signs Date Time Temp Pulse Resp B/P (MAP) Pulse Ox O2 Delivery O2 Flow Rate FiO2 11/09/17 16:11 82 20 130/63 95 Room Air 11/09/17 08:00 97.2 82 20 130/63 (85) 95 Room Air 11/09/17 08:00 Room Air 11/09/17 00:00 97.6 79 17 125/65 (85) 95 Room Air I & O 11/09/17 07:00 Intake Total 2130 ml Output Total 4175 ml Balance -2045 ml Capillary Refill : Greater Than 3 Seconds General Appearance: No Apparent Distress, WD/WN HEENT: PERRL/EOMI Neck: Non Tender, Supple Respiratory: No Accessory Muscle Use, No Respiratory Distress Cardiovascular: Regular Rate, Rhythm Gastrointestinal: non tender, soft, no organomegaly, no pulsatile mass Extremity: Other (bilateral below the knee amputation. Still some macerated- appearing skin but healing and erythema less. Cauliflower-appearing stump on the left lower extremity, still with some slight skin discoloration going lateral to posteriorly. Right lower extremity with minimal erythema on the lateral aspect.) Neurologic/Psychiatric: Alert, Oriented x3, No Motor/Sensory Deficits, Normal Mood/Affect Skin: Erythema (As noted above) Lymphatic: No Adenopathy Results Lab Laboratory Tests 11/09/17 05:10: White Blood Count 6.0, Red Blood Count 3.88L, Hemoglobin 10.0L, Hematocrit 32L, Mean Corpuscular Volume 81, Mean Corpuscular Hemoglobin 26, Mean Corpuscular Hemoglobin Concent 32, Red Cell Distribution Width 15.1H, Platelet Count 364, Mean Platelet Volume 8.1, Neutrophils (%) (Auto) 58, Lymphocytes (%) (Auto) 25, Monocytes (%) (Auto) 12, Eosinophils (%) (Auto) 4, Basophils (%) (Auto) 1, Neutrophils # (Auto) 3.5, Lymphocytes # (Auto) 1.5, Monocytes # (Auto) 0.7, Eosinophils # (Auto) 0.3, Basophils # (Auto) 0.0, Sodium Level 139, Potassium Level 4.1, Chloride Level 107, Carbon Dioxide Level 26, Anion Gap 6, Blood Urea Nitrogen 7, Creatinine 0.67, Estimat Glomerular Filtration Rate > 60, BUN/ Creatinine Ratio 10, Glucose Level 126H, Calcium Level 8.6, Magnesium Level 2.2 , C-Reactive Protein High Sensitivity 0.92H 11/09/17 05:34: Glucometer 130H 11/09/17 09:44: Glucometer 286H 11/09/17 14:32: Glucometer 291H Microbiology 11/06/17 Blood Culture - Preliminary, Resulted No growth 11/08/17 Gram Stain - Final, Resulted 11/08/17 Anaerobic Culture, Resulted Pending 11/08/17 Wound Culture - Preliminary, Resulted Strep agalactiae Group B Gram Negative Jordan Probable Enterococcus Species Strep Or Related Genus 11/08/17 Fungal Culture, Resulted Pending Assessment/Plan Assessment/Plan Assessment/Plan bilateral cellulitis history of bilateral below knee amputations dm Continues to improve overall Agree with Dc home today Patient discussed close blood glucose control Any worsening should be re-evaluated at that time. Clinical Quality Measures DVT/VTE Risk/Contraindication: Risk Factor Score Per Nursin RFS Level Per Nursing on Admit: 3=High GALO GRIFFIN DO Nov 09, 2017 20:54
== END 2017-11-09 16:21 | disposition home or self-care (01) | DRG 565 ==
LOC: EDUNIT# 10:37 → ER 10:39 → 4TH 13:00
PROVIDERS: ADMIT Family Medicine; ATTEND Family Medicine
PROC: 0HBLXZX Excision of Left Lower Leg Skin, External Approach, Diagnostic (ICD-10-PCS; principal; 2017-11-07)
DX: T87.44 Infection of amputation stump, left lower extremity (principal); T87.43 Infection of amputation stump, right lower extremity; L03.115 Cellulitis of right lower limb; L03.116 Cellulitis of left lower limb; E11.9 Type 2 diabetes mellitus without complications; I10 Essential (primary) hypertension; E78.00 Pure hypercholesterolemia, unspecified; N40.0 Benign prostatic hyperplasia without lower urinary tract symptoms; Z79.4 Long term (current) use of insulin; Z89.511 Acquired absence of right leg below knee; Z89.512 Acquired absence of left leg below knee
CPT/HCPCS: 36415; 71045; 80048; 80053; 82962; 83605; 83735; 85025; 85610; 85730; 86141; 87040; 87070; 87075; 87077; 87101; 87116; 87186; 87205; 96361; 96365; 96366

== ENCOUNTER → 2017-11-06 | Outpatient (CLI) | payer MEDICARE, OTHER ==
[~2017-11-06] MED LIST: ASPI-983 PO; CLOP75TA28 PO; INSN1U SQ; INSU100V31 SQ; LISI-552 PO; SIMV20TA3 PO
== END ==
LOC: WOUNDCARE 08:54
PROVIDERS: ATTEND Nurse Practitioner
DX: L03.116 Cellulitis of left lower limb (principal); Z89.512 Acquired absence of left leg below knee
CPT/HCPCS: 99202

== ENCOUNTER → 2017-11-13 | Outpatient (CLI) | payer MEDICARE, OTHER ==
[~2017-11-13] MED LIST changes: +CEPH-507 PO; +CLIN300C11 PO
== END ==
LOC: WOUNDCARE 10:49
PROVIDERS: ATTEND Nurse Practitioner
DX: L03.116 Cellulitis of left lower limb (principal); L97.122 Non-pressure chronic ulcer of left thigh with fat layer exposed; B36.9 Superficial mycosis, unspecified; Z89.512 Acquired absence of left leg below knee
CPT/HCPCS: 11042

== ENCOUNTER → 2017-11-22 | Outpatient (CLI) | payer MEDICARE, OTHER | LOC: WOUNDCARE 14:01 | PROVIDERS: ATTEND Nurse Practitioner | DX: L03.116 Cellulitis of left lower limb (principal); L97.122 Non-pressure chronic ulcer of left thigh with fat layer exposed; B36.9 Superficial mycosis, unspecified; Z89.512 Acquired absence of left leg below knee | CPT/HCPCS: 11042; 87070; 87075; 87101; 87205 ==

== ENCOUNTER → 2017-11-27 | Outpatient (CLI) | payer MEDICARE, OTHER | LOC: WOUNDCARE 10:01 | PROVIDERS: ATTEND Nurse Practitioner | DX: L97.122 Non-pressure chronic ulcer of left thigh with fat layer exposed (principal); L03.116 Cellulitis of left lower limb; B36.9 Superficial mycosis, unspecified; Z89.512 Acquired absence of left leg below knee | CPT/HCPCS: 11042 ==

== ENCOUNTER → 2017-12-04 | Outpatient (CLI) | payer MEDICARE, OTHER | LOC: WOUNDCARE 09:53 | PROVIDERS: ATTEND Nurse Practitioner | DX: L97.122 Non-pressure chronic ulcer of left thigh with fat layer exposed (principal); L03.116 Cellulitis of left lower limb; B36.9 Superficial mycosis, unspecified; Z89.512 Acquired absence of left leg below knee | CPT/HCPCS: 11042 ==

== ENCOUNTER → 2017-12-17 | Outpatient (CLI) | payer MEDICARE, OTHER | LOC: WOUNDCARE 10:02 | PROVIDERS: ATTEND Nurse Practitioner | DX: L97.122 Non-pressure chronic ulcer of left thigh with fat layer exposed (principal); L97.121 Non-pressure chronic ulcer of left thigh limited to breakdown of skin; L03.116 Cellulitis of left lower limb; B36.9 Superficial mycosis, unspecified; Z89.512 Acquired absence of left leg below knee | CPT/HCPCS: 11042; 97597 ==

== ENCOUNTER 2017-12-25 10:53 | Outpatient (RCR) | payer MEDICARE, OTHER ==
[2017-12-04 11:19] LABS: BUN/CREATININE RATIO 13; CALCIUM 9.5 MG/DL (8.5-10.1); CARBON DIOXIDE 29 MMOL/L (21-32); CHLORIDE 98 MMOL/L (98-107); CREATININE SERUM 1.03 MG/DL (0.60-1.30); GFR ESTIMATED > 60; GLUCOSE 224 MG/DL (70-105); POTASSIUM 4.7 MMOL/L (3.6-5.0); SODIUM 134 MMOL/L (135-145)
[2017-12-11 10:57] LABS: BUN/CREATININE RATIO 13; CALCIUM 9.9 MG/DL (8.5-10.1); CARBON DIOXIDE 27 MMOL/L (21-32); CHLORIDE 98 MMOL/L (98-107); CREATININE SERUM 0.87 MG/DL (0.60-1.30); GFR ESTIMATED > 60; GLUCOSE 185 MG/DL (70-105); POTASSIUM 4.6 MMOL/L (3.6-5.0); SODIUM 133 MMOL/L (135-145)
[2017-12-17 11:21] LABS: BUN/CREATININE RATIO 15; CALCIUM 10.1 MG/DL (8.5-10.1); CARBON DIOXIDE 28 MMOL/L (21-32); CHLORIDE 96 MMOL/L (98-107); CREATININE SERUM 0.95 MG/DL (0.60-1.30); GFR ESTIMATED > 60; GLUCOSE 236 MG/DL (70-105); POTASSIUM 4.6 MMOL/L (3.6-5.0); SODIUM 132 MMOL/L (135-145)
[2017-12-25 11:24] LABS: BUN/CREATININE RATIO 13; CALCIUM 9.5 MG/DL (8.5-10.1); CARBON DIOXIDE 25 MMOL/L (21-32); CHLORIDE 99 MMOL/L (98-107); CREATININE SERUM 0.88 MG/DL (0.60-1.30); GFR ESTIMATED > 60; GLUCOSE 183 MG/DL (70-105); POTASSIUM 4.6 MMOL/L (3.6-5.0); SODIUM 132 MMOL/L (135-145)
== END 2018-03-04 | disposition home or self-care (01) ==
LOC: LAB 10:53
PROVIDERS: ATTEND Nurse Practitioner
DX: Z51.81 Encounter for therapeutic drug level monitoring (principal); Z79.899 Other long term (current) drug therapy
CPT/HCPCS: 36415; 80048

== ENCOUNTER → 2017-12-25 | Outpatient (CLI) | payer MEDICARE, OTHER | LOC: WOUNDCARE 10:09 | PROVIDERS: ATTEND Nurse Practitioner | DX: L97.122 Non-pressure chronic ulcer of left thigh with fat layer exposed (principal); L97.121 Non-pressure chronic ulcer of left thigh limited to breakdown of skin; L03.116 Cellulitis of left lower limb; B36.9 Superficial mycosis, unspecified; Z89.512 Acquired absence of left leg below knee | CPT/HCPCS: 11042; 97597 ==

== ENCOUNTER → 2018-01-01 | Outpatient (CLI) | payer MEDICARE, OTHER | LOC: WOUNDCARE 08:38 | PROVIDERS: ATTEND Nurse Practitioner | DX: L03.116 Cellulitis of left lower limb (principal); Z89.512 Acquired absence of left leg below knee; L97.122 Non-pressure chronic ulcer of left thigh with fat layer exposed; B36.9 Superficial mycosis, unspecified; L97.121 Non-pressure chronic ulcer of left thigh limited to breakdown of skin | CPT/HCPCS: 15271; 87070; 87075; 87101; 87106; 87186; 87205 ==

== ENCOUNTER → 2018-01-08 | Outpatient (CLI) | payer MEDICARE, OTHER | LOC: WOUNDCARE 08:41 | PROVIDERS: ATTEND Nurse Practitioner | DX: L97.121 Non-pressure chronic ulcer of left thigh limited to breakdown of skin (principal); L03.116 Cellulitis of left lower limb; B36.9 Superficial mycosis, unspecified; Z89.512 Acquired absence of left leg below knee | CPT/HCPCS: 97597 ==

== ENCOUNTER → 2018-01-15 | Outpatient (CLI) | payer MEDICARE, OTHER | LOC: WOUNDCARE 08:58 | PROVIDERS: ATTEND Nurse Practitioner | DX: L97.121 Non-pressure chronic ulcer of left thigh limited to breakdown of skin (principal); L03.116 Cellulitis of left lower limb; B36.9 Superficial mycosis, unspecified; Z89.512 Acquired absence of left leg below knee | CPT/HCPCS: 15271 ==

== ENCOUNTER → 2018-01-22 | Outpatient (CLI) | payer MEDICARE, OTHER | LOC: WOUNDCARE 08:44 | PROVIDERS: ATTEND Nurse Practitioner | DX: L03.116 Cellulitis of left lower limb (principal); L97.122 Non-pressure chronic ulcer of left thigh with fat layer exposed; B36.9 Superficial mycosis, unspecified; Z89.512 Acquired absence of left leg below knee | CPT/HCPCS: 99212 ==

== ENCOUNTER → 2019-01-10 | Outpatient (CLI) | payer MEDICARE, OTHER | LOC: WOUNDCARE 08:40 | PROVIDERS: ATTEND Surgery | DX: E11.622 Type 2 diabetes mellitus with other skin ulcer (principal); L97.212 Non-pressure chronic ulcer of right calf with fat layer exposed; I70.232 Atherosclerosis of native arteries of right leg with ulceration of calf; Z89.511 Acquired absence of right leg below knee; Z89.512 Acquired absence of left leg below knee | CPT/HCPCS: 11042; 87070; 87077; 87186; 87205 ==

== ENCOUNTER → 2019-01-15 | Outpatient (CLI) | payer MEDICARE, OTHER | LOC: WOUNDCARE 09:44 | PROVIDERS: ATTEND Surgery | DX: E11.622 Type 2 diabetes mellitus with other skin ulcer (principal); L97.212 Non-pressure chronic ulcer of right calf with fat layer exposed; Z89.511 Acquired absence of right leg below knee; Z89.512 Acquired absence of left leg below knee | CPT/HCPCS: 11042 ==

== ENCOUNTER → 2019-01-22 | Outpatient (CLI) | payer MEDICARE, OTHER | LOC: WOUNDCARE 09:26 | PROVIDERS: ATTEND Surgery | DX: E11.622 Type 2 diabetes mellitus with other skin ulcer (principal); L97.212 Non-pressure chronic ulcer of right calf with fat layer exposed; Z89.511 Acquired absence of right leg below knee; Z89.512 Acquired absence of left leg below knee | CPT/HCPCS: 11042 ==

== ENCOUNTER → 2019-01-29 | Outpatient (CLI) | payer MEDICARE, OTHER | LOC: WOUNDCARE 09:38 | PROVIDERS: ATTEND Surgery | DX: E11.622 Type 2 diabetes mellitus with other skin ulcer (principal); L97.212 Non-pressure chronic ulcer of right calf with fat layer exposed; Z89.511 Acquired absence of right leg below knee; Z89.512 Acquired absence of left leg below knee | CPT/HCPCS: 11042; 87070; 87077; 87205 ==

== ENCOUNTER → 2019-02-05 | Outpatient (CLI) | payer MEDICARE, OTHER | LOC: WOUNDCARE 12:43 | PROVIDERS: ATTEND Surgery | DX: E11.622 Type 2 diabetes mellitus with other skin ulcer (principal); L97.212 Non-pressure chronic ulcer of right calf with fat layer exposed; Z89.511 Acquired absence of right leg below knee; Z89.512 Acquired absence of left leg below knee | CPT/HCPCS: 99213 ==

== ENCOUNTER → 2019-02-12 | Outpatient (CLI) | payer MEDICARE, OTHER | LOC: WOUNDCARE 09:35 | PROVIDERS: ATTEND Surgery | DX: E11.622 Type 2 diabetes mellitus with other skin ulcer (principal); L97.212 Non-pressure chronic ulcer of right calf with fat layer exposed; Z89.511 Acquired absence of right leg below knee; Z89.512 Acquired absence of left leg below knee | CPT/HCPCS: 99212 ==

== ENCOUNTER → 2019-08-11 | Outpatient (CLI) | payer MEDICARE, OTHER ==
[~2019-08-11] MED LIST changes: +CATHETER FLUSH 10 ML SYR IV PRN; +HOLD METFORMIN - RECEIVED CONTRAST 20 ML VIAL IV SCH; +IOHEXOL 350 MG/ML 100 ML (OMNIPAQUE 350) VIAL IV ONE; +NS 100 ML (IVPB) BAG IV ONE
[2019-08-11 15:21] LABS: BUN/CREATININE RATIO 14; CREATININE SERUM 0.74 MG/DL (0.60-1.30); GFR ESTIMATED > 60
--- NOTE | 2019-08-11 17:18 | Diagnostic Imaging Report ---
PROCEDURE: CT chest, abdomen, and pelvis with contrast. TECHNIQUE: Multiple contiguous axial images were obtained through the chest, abdomen, and pelvis after the administration of intravenous contrast. Auto Exposure Controls were utilized during the CT exam to meet ALARA standards for radiation dose reduction. INDICATION: Colon cancer. COMPARISON: I have no previous for comparison. CHEST: There is some benign calcified subpleural granulomata noted. No noncalcified or suspicious pulmonary nodule. There is no thoracic lymphadenopathy. There is no pleural or pericardial effusion. There is benign calcified jamel granulomatous residua. No suspicious thoracic lymph nodes. No suspect lytic or sclerotic bone lesion. No evidence for pneumonia, edema or acute pathology. ABDOMEN AND PELVIS: There is circumferential thickening of the soft tissues at the junction of the descending and sigmoid colon which persists on the dynamic and delayed images. Underlying mass could not be excluded. Beyond that level, there is fluid and air in the rectal vault. The rectal vault non-thickened. No solid or suspicious liver mass. The gallbladder, bile ducts, spleen, adrenals and pancreas are unremarkable. There is a small volume free fluid along the lower colic gutters and into the dependent pelvis. Prostate and seminal vesicles unremarkable. The bladder wall is thickened diffusely which can reflect cystitis. Bladder volume was not pathologic. Small bowel is unobstructed. Some fluid and air distend the colon. There is no abdominal, pelvic, mesenteric or retroperitoneal lymphadenopathy. No suspicious lytic or sclerotic bony lesion. IMPRESSION: CHEST: No acute finding or evidence of metastatic disease. ABDOMEN AND PELVIS: 1. Large bowel fluid and gaseous dilatation with circumferential thickening at the proximal sigmoid colon persistent at the dynamic and delayed images. Underlying mass at that level could not be excluded. 2. There were no findings suggestive of CT evidence of metastatic disease. Small-volume free fluid present. No perforation. Negative liver. Thickened urinary bladder wall, may reflect cystitis. Dictated by: Dictated on workstation # [id number]
== END ==
LOC: RAD 14:44
PROVIDERS: ATTEND Surgery
DX: C18.9 Malignant neoplasm of colon, unspecified (principal); N32.89 Other specified disorders of bladder
CPT/HCPCS: 36415; 71260; 74177; 82565; 84520

== ENCOUNTER 2019-08-18 14:04 | Outpatient (CLI) | payer MEDICARE, OTHER ==
[~2019-08-18] VITALS: Ht 188 cm; Wt 99.1 kg
[~2019-08-18 14:04] MED LIST changes: -CATHETER FLUSH 10 ML SYR IV PRN; -HOLD METFORMIN - RECEIVED CONTRAST 20 ML VIAL IV SCH; -IOHEXOL 350 MG/ML 100 ML (OMNIPAQUE 350) VIAL IV ONE; -NS 100 ML (IVPB) BAG IV ONE
[2019-08-18 14:17] VITALS: BP 141/83
[2019-08-18 14:48] LABS: BASOPHILS % (AUTO) 0 % (0-10); EOSINOPHILS # (AUTO) 0.3 10^3/uL (0.0-0.3); EOSINOPHILS % (AUTO) 3 % (0-10); HEMATOCRIT 37 % (40-54); HEMOGLOBIN 11.2 G/DL (13.3-17.7); LYMPHOCYTES # (AUTO) 1.3 X 10^3 (1.0-4.0); LYMPHOCYTES % (AUTO) 17 % (12-44); MEAN CORPUSCULAR HEMOGLOBIN 25 PG (25-34); MEAN CORPUSCULAR HGB CONC 30 G/DL (32-36); MEAN CORPUSCULAR VOLUME 82 FL (80-99); MEAN PLATELET VOLUME 8.9 FL (7.4-10.4); MONOCYTES # (AUTO) 0.8 X 10^3 (0.0-1.0); MONOCYTES % (AUTO) 10 % (0-12); NEUTROPHILS # (AUTO) 5.5 X 10^3 (1.8-7.8); NEUTROPHILS % (AUTO) 70 % (42-75); PLATELET COUNT 415 10^3/uL (130-400); RED CELL DISTRIBUTION WIDTH 17.7 % (10.0-14.5); WHITE BLOOD COUNT 7.9 10^3/uL (4.3-11.0)
== END 2019-08-18 14:38 | disposition home or self-care (01) ==
LOC: PREOP 14:04
PROVIDERS: ATTEND Surgery
DX: Z01.818 Encounter for other preprocedural examination (principal); C18.9 Malignant neoplasm of colon, unspecified
CPT/HCPCS: 36415; 85025; 86850; 86900; 86901; 87081

== ENCOUNTER → 2019-10-17 | Outpatient (CLI) | payer MEDICARE, OTHER ==
[~2019-10-17] MED LIST changes: +IOHEXOL 240 MGI/ML 50 ML (OMNIPAQUE) VIAL IV ONE; +SIMV20TA26 PO; -SIMV20TA3 PO
--- NOTE | 2019-10-17 12:38 | Diagnostic Imaging Report ---
INDICATION: Left ureteral injury during recent surgery. Patient has an indwelling left double-J nephroureteral stent as well as percutaneous nephrostomy tube. Patient presents for antegrade nephrostogram. FINDINGS: Patient was brought to the fluoroscopy suite, placed on table in the supine position. Approximately 50 mL of Omnipaque 240 contrast was injected into the patient's indwelling left percutaneous nephrostomy tube. Fluoroscopy over the abdomen was performed. A total of 2 minutes and 28 seconds of fluoroscopic time was utilized. 12 images were obtained. Preliminary images demonstrate a left-sided double-J nephroureteral stent as well as left-sided percutaneous nephrostomy tube. Left renal collecting system and left renal pelvis were opacified and appear unremarkable. Contrast does appear to flow freely down the left ureter into the urinary bladder. No definite contrast extravasation is seen. IMPRESSION: Unremarkable antegrade nephrostogram on the left. No definite ureteral contrast extravasation is seen. Dictated by: Dictated on workstation # [id number]
== END ==
LOC: RAD 10:52
PROVIDERS: ATTEND Urology
DX: S37.13XA Laceration of ureter, initial encounter (principal); Z96.0 Presence of urogenital implants

== ENCOUNTER → 2019-10-21 | Outpatient (CLI) | payer MEDICARE, OTHER ==
[~2019-10-21] MED LIST changes: -IOHEXOL 240 MGI/ML 50 ML (OMNIPAQUE) VIAL IV ONE
== END | disposition home or self-care (01) ==
LOC: PREOP 05:38
PROVIDERS: ATTEND Surgery
DX: Z01.818 Encounter for other preprocedural examination (principal)

== ENCOUNTER → 2019-11-07 | Outpatient (CLI) | payer MEDICARE, OTHER ==
--- NOTE | 2019-11-07 11:30 | NUR ---
Left nephrostomy tube removed with Dr. Lopez after Nephrostogram confirmed no obstruction or leak per Dr. Gray order.
--- NOTE | 2019-11-07 13:48 | Diagnostic Imaging Report ---
INDICATION: Left ureteral injury. Patient has indwelling left-sided percutaneous nephrostomy tube. Patient presents for nephrostogram. Contrast was injected into the patient's indwelling left-sided percutaneous tube during fluoroscopic observation. Multiple spot films and overhead radiograph was obtained. Total of 1 minute and 57 seconds of fluoroscopic time was utilized. The dry goods inspector radiograph does show a left-sided percutaneous nephrostomy tube. Postinjection films demonstrate contrast throughout the left renal collecting system and left ureter. There is free flow of contrast into the bladder. No extravasation is identified. IMPRESSION: No evidence of ureteral extravasation. Dictated by: Dictated on workstation # [id number]
== END ==
LOC: RAD 09:57
PROVIDERS: ATTEND Urology
DX: S37.13XA Laceration of ureter, initial encounter (principal); Z93.6 Other artificial openings of urinary tract status

== ENCOUNTER 2019-11-11 05:41 | Outpatient (CLI) | payer MEDICARE, OTHER ==
[~2019-11-11] VITALS: Ht 193 cm; Wt 84.0 kg
== END 2019-11-11 12:56 | disposition home or self-care (01) ==
LOC: PREOP 05:41
PROVIDERS: ATTEND Surgery
DX: Z01.818 Encounter for other preprocedural examination (principal)

== ENCOUNTER 2019-11-12 15:18 | Emergency (ER) | payer MEDICARE, OTHER ==
[~2019-11-12] VITALS: Ht 187.9 cm; Wt 88.6 kg
[2019-11-12] MEDS ORDERED: NS IV 1000 ML 1,000 ML IV SCH (15:37)
--- NOTE | 2019-11-12 15:43 | ED General ---
General Stated Complaint: RENAL FAILURE Source of Information: Patient Exam Limitations: No Limitations History of Present Illness Date Seen by Provider: Nov 12, 2019 Time Seen by Provider: 15:19 Initial Comments Patient presents ER by private conveyance from home with chief complaint that he was sent here by the cancer center after having some routine labs drawn today by Dr. Patel and it demonstrated elevated creatinine. Patient's not having any symptoms today. He was diagnosed in July with a colon cancer had a surgery to remove it by Dr. Griffin and a subsequent ureteral knick. . Had a stent placed by Dr. Dukes, urology. He had the stent taken out couple weeks ago. In August he had a normal creatinine of 0.5 today is 5.0. He denies urinary frequency but he does have some urinary incontinence. He is not having any blood in the urine. No history of kidney disorder. He denies dysuria, discharge. Last bowel movement was a couple hours ago, normal for him since having the colectomy. This plan was to get port next week placed and start chemotherapy after that. He denies fever, cough. He just got off antibiotics last week for UTI. He was on Bactrim and he said it did not sit well on his stomach. He has had some Chills the past day. He is not on his Plavix presently. He was put on Plavix because he had a TIA while in the hospital. Allergies and Home Medications Allergies Coded Allergies: No Known Drug Allergies (Unverified , 11/11/19) Home Medications Aspirin 81 Mg Tablet.dr, 81 MG PO DAILY, (Reported) Clopidogrel Bisulfate 75 Mg Tablet, 75 MG PO DAILY, (Reported) Insulin NPH Human Isophane 100 Unit/1 Ml Vial, 33 UNITS SQ DAILY, (Reported) Insulin NPH Human Isophane 100 Unit/1 Ml Vial, 20 UNITS SQ 1930, (Reported) Insulin Regular, Human 100 Unit/1 Ml Vial, 6 UNITS SQ DAILY, (Reported) Insulin Regular, Human 100 Unit/1 Ml Vial, 5 UNITS SQ 1930, (Reported) Lisinopril 20 Mg Tablet, 20 MG PO DAILY, (Reported) Simvastatin 20 Mg Tablet, 20 MG PO HS, (Reported) Patient Home Medication List Home Medication List Reviewed: Yes Review of Systems Review of Systems Constitutional: chills; No fever, No malaise, No weakness EENTM: No ear discharge, No hearing loss, No ear pain, No blurred vision, No eye pain Respiratory: No cough, No short of breath Cardiovascular: No chest pain, No edema Gastrointestinal: No abdominal pain, No nausea, No vomiting Genitourinary: No discharge, No dysuria Musculoskeletal: No back pain, No joint pain Psychiatric/Neurological: Denies Anxiety, Denies Depressed All Other Systems Reviewed Negative Unless Noted: Yes Past Ngtbgac-Ocszry-Pdcbox Hx Patient Social History Alcohol Use: Denies Use Recreational Drug Use: No Smoking Status: Never a Smoker 2nd Hand Smoke Exposure: No Recent Hopitalizations: No Immunizations Up To Date Tetanus Booster (TDap): Unknown Date of Pneumonia Vaccine: Jun 08, 2013 Date of Influenza Vaccine: Jun 13, 2019 Seasonal Allergies Seasonal Allergies: No Past Medical History Surgeries: Yes (BILAT BKA, SEVERAL I&D'S, COLECTOMY) Orthopedic Respiratory: No Cardiac: Yes High Cholesterol, Hypertension Neurological: Yes TIA Genitourinary: Yes Benign Prostatic Hyperpl Gastrointestinal: Yes (COLON CANCER) 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 No Pertinent Family Hx Physical Exam Vital Signs Vital Signs - First Documented 11/12/19 15:18 Temp 37.2 Pulse 92 Resp 18 B/P (MAP) 132/71 (91) Pulse Ox 96 O2 Delivery Room Air Capillary Refill : Height, Weight, BMI Height: 6'2.00" Weight: 201lbs. 5.0oz. 91.643627qj; 22.55 BMI Method:Stated General Appearance: No Apparent Distress, WD/WN Eyes: Bilateral Eye Normal Inspection, Bilateral Eye PERRL, Bilateral Eye EOMI HEENT: PERRL/EOMI, TMs Normal, Normal ENT Inspection, Pharynx Normal; No Moist Mucous Membranes Neck: Full Range of Motion, Normal Inspection Respiratory: Lungs Clear, Normal Breath Sounds, No Accessory Muscle Use, No Respiratory Distress Cardiovascular: Regular Rate, Rhythm, No Edema, No JVD Gastrointestinal: Normal Bowel Sounds, Non Tender, Soft, Other (healing surgical wounds mid abdomen, and tach, clean, dry, open to air) Extremity: Normal Capillary Refill, Normal Inspection, No Pedal Edema Neurologic/Psychiatric: Alert, Oriented x3, No Motor/Sensory Deficits, Normal Mood/Affect Skin: Normal Color, Warm/Dry Procedures/Interventions Date of ETT Placement: Sep 05, 2019 Progress/Results/Core Measures Suspected Sepsis SIRS Temperature: Pulse: Respiratory Rate: Blood Pressure / Mean: Results/Orders Lab Results Laboratory Tests Test 11/12/19 16:07 Range/Units Urine Color YELLOW Urine Clarity CLEAR Urine pH 5.5 5-9 Urine Specific [place] 1.010 L 1.016-1.022 Urine Protein NEGATIVE NEGATIVE Urine Glucose (UA) NEGATIVE NEGATIVE Urine Ketones NEGATIVE NEGATIVE Urine Nitrite NEGATIVE NEGATIVE Urine Bilirubin NEGATIVE NEGATIVE Urine Urobilinogen 0.2 < = 1.0 MG/DL Urine Leukocyte Esterase 1+ H NEGATIVE Urine RBC (Auto) 3+ H NEGATIVE Urine RBC 2-5 H /HPF Urine WBC 5-10 H /HPF Urine Squamous Epithelial Cells 0-2 /HPF Urine Crystals NONE /LPF Urine Bacteria TRACE /HPF Urine Casts NONE /LPF Urine Mucus NEGATIVE /LPF Urine Culture Indicated YES My Orders Orders - BRET ARREDONDO Ct Abdomen/Pelvis Wo (11/12/19 15:37) Ed Iv/Invasive Line Start (11/12/19 15:37) Ns Iv 1000 Ml (Sodium Chloride 0.9%) (11/12/19 15:37) Ua Culture If Indicated (11/12/19 15:37) Urine Culture (11/12/19 16:07) Vital Signs/I&O 11/12/19 11/12/19 15:18 18:06 Temp 37.2 Pulse 92 92 Resp 18 18 B/P (MAP) 132/71 (91) 129/86 Pulse Ox 96 96 O2 Delivery Room Air Room Air Capillary Refill : Progress Note : Time: 15:49 Progress Note Elevated creatinine, asymptomatic suspect ureteral blockage. Plan to get a CT to evaluate for ureteral dilatation, stones, etc. Give him a liter fluids to start with. He already had labs drawn at 2:00 that resulted out. He is afebrile with aseptic vital signs presently. Diagnostic Imaging Diagonstic Imaging: CT (without IV contrast) Plain Films/CT/US/NM/MRI: abdomen, pelvis Comments NAME: GEE QUIGLEY MED REC#: [id number] PT STATUS: REG ER : 1945 PHYSICIAN: BRET ARREDONDO MD ADMIT DATE: 11/12/19/ER Draft Date of Exam:11/12/19 CT ABDOMEN/PELVIS WO PROCEDURE: CT abdomen and pelvis without contrast. TECHNIQUE: Multiple contiguous axial images were obtained through the abdomen and pelvis without the use of intravenous contrast. Auto Exposure Controls were utilized during the CT exam to meet ALARA standards for radiation dose reduction. INDICATION: Renal failure. History of colon cancer. Previous partial colectomy. COMPARISON: 09/08/2019. FINDINGS: Included portions of the lung bases show interval resolution of previously described bilateral pleural effusions. 4 mm juxtapleural micronodule is noted within the lateral lingula of the left upper lobe. CT abdomen: There is moderate bilateral hydroureteronephrosis. No renal or ureteral calculi are identified on either side. There is however markedly abnormal distention of the urinary bladder. Urinary bladder measures approximately 15.6 cm x 13.7 cm x 20.5 cm. No calculi are seen within urinary bladder. Prostate is moderately enlarged as it measures 6.3 x 6.1 cm in axial dimension. No focal renal masses are identified on this noncontrast exam. The adrenal glands and spleen have an unremarkable noncontrast CT appearance. There is advanced pancreatic atrophy. Small hypodensity is noted within the anterior subcapsular margins of segment 2 of the liver and measures 0.9 cm. This has imaging appearance consistent with benign cyst on prior exam. Normal appendix is identified. Small bowel loops are nondistended. There does appear to be small bowel wall thickening. This is most convincing involving the jejunum in the left upper abdominal quadrant (image 37, series 2). Similar appearance is noted on prior exam dated 09/08/2019. There is no pneumatosis or portal venous gas. There may be trace free fluid scattered about the abdomen. There is no free air nor loculated air-fluid collection. No abnormal mesenteric or retroperitoneal adenopathy is seen. There is diffuse calcified aortic and arterial atherosclerosis. Osseous structures show no acute abnormalities. CT pelvis: Again, there is severe distention of the urinary bladder and moderate prostatomegaly. There is no loculated fluid collection, free fluid, nor free air within the pelvis. No abnormal lymph nodes are identified. Osseous structures show no acute abnormalities. IMPRESSION: 1. Interval development of moderate bilateral hydroureteronephrosis. This is felt to most likely be on the basis of underlying urinary outlet obstruction given severe distention of the urinary bladder and underlying moderate prostatomegaly. 2. Mild small bowel wall thickening as above. Findings may be on the basis of residual of enteritis or postoperative ileus. This does appear perhaps mildly improved when compared to prior exam. 3. Minimal abdominal pelvic ascites. No loculated air-fluid collection to suggest abscess. 4. Small micronodule of the lingula. Continued follow-up is advised. Dictated on workstation # [id number] Dict: 11/12/19 1626 Trans: 11/12/19 1641 [facility] [id number] Interpreted by: BENJAMIN HUSTON MD Electronically signed by: Reviewed: Reviewed by Me Consults Consults #1: Consulting Physician: HONG DUKES MD Consults Notes Discussed the case with urologist, Dr. Dukes at 1730 and he additionally with the patient. He wants the patient to stop taking the medications that he started him on the other day Flomax. He wants the patient see him tomorrow afternoon that he can repeat labs at 1:00 PM. We will put a Rosales catheter in the patient to drain him and his lungs patient was dealing with it well and not having very gross hematuria and we could discharge him home tonight. We discussed that the risks of being around although viral illnesses far outweigh any benefit that could be gained from being in the hospital. He wants the patient to drink a lot of Gatorade. He also discussed return precautions for gross hematuria, inability to drain the catheter, worsening pain or delirium. Consults #2: Consulting Physician: GALO GRIFFIN DO Consults Notes 181: Discussed the case with Dr. Griffin who has a scheduled procedure placement for tomorrow. He agrees with rescheduling it at a later date. He is asked the patient to discuss restarting the Plavix with Dr. Dukes, urology tomorrow. Departure Impression Primary Impression: Urinary tract obstruction Additional Impression: Acute kidney injury (nontraumatic) Disposition: 01 HOME, SELF-CARE Condition: Improved Departure-Patient Inst. Decision time for Depature: 17:41 Referrals: [facility] (PCP) Primary Care Physician KIANNA BARAJAS (Family) Primary Care Physician HONG DUKES MD Patient Instructions: Urinary Retention (DC) Add. Discharge Instructions: Drink Gatorade or Powerade in large quantities to replace the fluid and salts that will be lost. Stop taking the medications that Dr. Dukes, urology started you on until he restarts them. Tylenol 650 mg every 6 hours as needed for pain. Follow-up tomorrow afternoon at 1:[address] Dukes's office for repeat examination and laboratory. Return to the ER if you experience any of the following: Severe pain, nausea or other worrisome symptoms. No urine production from the catheter. Blood clots in the urine especially if they don't pass easily. Confusion. BRET ARREDONDO J Nov 12, 2019 15:43
[2019-11-12 16:15] LABS: BILIRUBIN,URINE NEGATIVE (NEGATIVE); CLARITY,URINE CLEAR; COLOR,URINE YELLOW; GLUCOSE, URINE (UA) NEGATIVE (NEGATIVE); KETONES,URINE NEGATIVE (NEGATIVE); LEUKOCYTE ESTERASE ,URINE 1+ (NEGATIVE); NITRITE,URINE NEGATIVE (NEGATIVE); PH,URINE 5.5 (5-9); PROTEIN,URINE NEGATIVE (NEGATIVE)
[2019-11-12 16:25] LABS: BACTERIA,URINE TRACE /HPF; SQUAMOUS EPITHELIAL CELL,UR 0-2 /HPF
--- NOTE | 2019-11-12 16:42 | Diagnostic Imaging Report ---
PROCEDURE: CT abdomen and pelvis without contrast. TECHNIQUE: Multiple contiguous axial images were obtained through the abdomen and pelvis without the use of intravenous contrast. Auto Exposure Controls were utilized during the CT exam to meet ALARA standards for radiation dose reduction. INDICATION: Renal failure. History of colon cancer. Previous partial colectomy. COMPARISON: 09/08/2019. FINDINGS: Included portions of the lung bases show interval resolution of previously described bilateral pleural effusions. 4 mm juxtapleural micronodule is noted within the lateral lingula of the left upper lobe. CT abdomen: There is moderate bilateral hydroureteronephrosis. No renal or ureteral calculi are identified on either side. There is however markedly abnormal distention of the urinary bladder. Urinary bladder measures approximately 15.6 cm x 13.7 cm x 20.5 cm. No calculi are seen within urinary bladder. Prostate is moderately enlarged as it measures 6.3 x 6.1 cm in axial dimension. No focal renal masses are identified on this noncontrast exam. The adrenal glands and spleen have an unremarkable noncontrast CT appearance. There is advanced pancreatic atrophy. Small hypodensity is noted within the anterior subcapsular margins of segment 2 of the liver and measures 0.9 cm. This has imaging appearance consistent with benign cyst on prior exam. Normal appendix is identified. Small bowel loops are nondistended. There does appear to be small bowel wall thickening. This is most convincing involving the jejunum in the left upper abdominal quadrant (image 37, series 2). Similar appearance is noted on prior exam dated 09/08/2019. There is no pneumatosis or portal venous gas. There may be trace free fluid scattered about the abdomen. There is no free air nor loculated air-fluid collection. No abnormal mesenteric or retroperitoneal adenopathy is seen. There is diffuse calcified aortic and arterial atherosclerosis. Osseous structures show no acute abnormalities. CT pelvis: Again, there is severe distention of the urinary bladder and moderate prostatomegaly. There is no loculated fluid collection, free fluid, nor free air within the pelvis. No abnormal lymph nodes are identified. Osseous structures show no acute abnormalities. IMPRESSION: 1. Interval development of moderate bilateral hydroureteronephrosis. This is felt to most likely be on the basis of underlying urinary outlet obstruction given severe distention of the urinary bladder and underlying moderate prostatomegaly. 2. Mild small bowel wall thickening as above. Findings may be on the basis of residual of enteritis or postoperative ileus. This does appear perhaps mildly improved when compared to prior exam. 3. Minimal abdominal pelvic ascites. No loculated air-fluid collection to suggest abscess. 4. Small micronodule of the lingula. Continued follow-up is advised. Dictated by: Dictated on workstation # [id number]
[2019-11-12 18:06] VITALS: BP 129/86
--- NOTE | 2019-11-12 18:06 | NUR ---
DISCHARGE PER W/C CALLED AND TALKED WITH RAZA BARBOSA AND DISCHARGE INSTRUCTIONS GIVEN
--- NOTE | 2019-11-12 18:06 | NUR ---
CODY BAG CONVERTED TO LEG BAG AND INSTURCTION OF USE. TALKED WITH CARE GIVEN RAZA SHE VOICED SHE KNEW HOW TO TAKE CARE OF CODY AND DID NOT NEED TO BE TOLD.
--- OUTSIDE RECORDS SUMMARY | 2019-11-12 18:29 | XMS REPORT ---
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 Active 333159416 Problem 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 Active 993797662 Problem Type 2 diabetes mellitus wit h diabetic peripheral angiopathy without gangrene E11.51 Active 875693970 Problem Venous insufficiency (chronic) (peripheral) I87.2 Active 76221973 Problem Dermatitis due to unspecified substance taken internally L27.9 Active 60968588 Problem Non-pressure chronic ulcer o f other part of left lower leg with unspecified severity L97.829 Active 2413064 05 ALLERGIES No Information ENCOUNTERS Encounter Location Date Diagnosis [facility] [address] [facility] [id number] [place] [id number] Jul, [place] [address] [id number] [place] [id number] Jul, Type 2 diabetes mellitus with diabetic p eripheral angiopathy without gangrene E11.[address] [facility] [address] [id number] [place] [address] Jul, Type 2 diabetes mellitus with diabetic p eripheral angiopathy without gangrene E11.51 [facility] [address] [id number] [place] [id number] Jun, Type 2 diabetes mellitus with diabetic p eripheral angiopathy without gangrene E11.51 [facility] [address] [id number] [place] [id number] May, Encounter for immunization Z23 [facility] [place] [address] [id number] [place] [id number] May, [facility] [place] [address] [id number] [place] [id number] Apr, Type 2 diabetes mellitus with diabetic p eripheral angiopathy without gangrene E11.51 ; Essential hypertension I10 and Heart murmur R01.1 [facility] [place] [address] [id number] [place] [id number] Jan, Type 2 diabetes mellitus with diabetic p eripheral angiopathy without gangrene E11.51 [facility] [place] [address] [id number] [place] [id number] December, Type 2 diabetes mellitus with diabetic p eripheral angiopathy without gangrene E11.51 ; 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 and 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 [facility] [place] [address] [id number] [place] [id number] Nov, Type 2 diabetes mellitus with diabetic p eripheral angiopathy without gangrene E11.51 [facility] [place] [address] [id number] [place] [id number] Oct, Type 2 diabetes mellitus with diabetic p eripheral angiopathy without gangrene E11.51 and Dermatitis due to unspecified substance taken internally L27.9 [facility] [address] [id number] 100KS [place] [address] Oct, [facility] [place] [address] [id number] [place] [id number] Oct, [facility] [address] [id number] [place] [id number] Oct, Type 2 diabetes mellitus with diabetic p eripheral angiopathy without gangrene E11.51 [facility] [place] [address] [id number] [place] [id number] Oct, Type 2 diabetes mellitus with diabetic p eripheral angiopathy without gangrene E11.51 [facility] [place] [address] [id number] [place] [id number] Oct, 2017 Type 2 diabetes mellitus with diabetic p eripheral angiopathy without gangrene E11.51 ; snf current use of insulin Z79.4 ; Heart murmur R01.1 ; Essential hypertension I10 ; Venous insufficiency (chronic) (peripheral) I87.2 and Non- pressure chronic ulcer of other part of left lower leg with unspecified severity L97.829 IMMUNIZATIONS No Known Immunizations SOCIAL HISTORY Never Assessed REASON FOR VISIT refill sent to different pharmacy PLAN OF CARE VITAL SIGNS MEDICATIONS Medication Instructions Dosage Frequency Start Date End Date Duration S tatus Novolin N 100 UNIT/ML Subcutaneous 2 times a day 33 units in am, 20 units pm 12h 90 days Active Novolin R 100 UNIT/ML Injection 2 times a day 6units am and 5pm 12h 90 days Active RESULTS No Results PROCEDURES No Known procedures INSTRUCTIONS MEDICATIONS ADMINISTERED No Known Medications MEDICAL (GENERAL) HISTORY Type Description Date Medical History type II diabetes Medical History hypertension Medical History TIA Medical History heart murmur 1976 dx Surgical History 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
--- OUTSIDE RECORDS SUMMARY | 2019-11-12 18:29 | XMS REPORT ---
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 Active 370085249 Problem 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 Active 159935195 Problem Type 2 diabetes mellitus wit h diabetic peripheral angiopathy without gangrene E11.51 Active 191817218 Problem Venous insufficiency (chronic) (peripheral) I87.2 Active 59763517 Problem Dermatitis due to unspecified substance taken internally L27.9 Active 09533730 Problem Non-pressure chronic ulcer o f other part of left lower leg with unspecified severity L97.829 Active 3097499 05 ALLERGIES No Information ENCOUNTERS Encounter Location Date Diagnosis [facility] [address] [facility] [id number] [place] [id number] Jul, [place] [address] [id number] [place] [id number] Jul, Type 2 diabetes mellitus with diabetic p eripheral angiopathy without gangrene E11.51 [facility] [address] [id number] [place] [address] Jul, Type 2 diabetes mellitus with diabetic p eripheral angiopathy without gangrene E11.51 [facility] [address] [id number] [place] [id number] Jun, Type 2 diabetes mellitus with diabetic p eripheral angiopathy without gangrene E11.51 [facility] [address] [id number] [place] [id number] May, Encounter for immunization Z23 [facility] [place] [address] [id number] [place] [id number] May, [facility] [place] [address] [id number] [place] [id number] Apr, Type 2 diabetes mellitus with diabetic p eripheral angiopathy without gangrene E11.51 ; Essential hypertension I10 and Heart murmur R01.1 [facility] [place] [address] [id number] [place] [id number] Jan, Type 2 diabetes mellitus with diabetic p eripheral angiopathy without gangrene E11.51 [facility] [place] [address] [id number] [place] [id number] December, Type 2 diabetes mellitus with diabetic p eripheral angiopathy without gangrene E11.51 ; 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 and 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 [facility] [place] [address] [id number] [place] [id number] Nov, Type 2 diabetes mellitus with diabetic p eripheral angiopathy without gangrene E11.51 [facility] [place] [address] [id number] [place] [id number] Oct, Type 2 diabetes mellitus with diabetic p eripheral angiopathy without gangrene E11.51 and Dermatitis due to unspecified substance taken internally L27.9 [facility] [address] [id number] [address] [place] [address] Oct, [facility] [place] [address] [id number] [place] [id number] Oct, [facility] [address] [id number] [place] [id number] Oct, Type 2 diabetes mellitus with diabetic p eripheral angiopathy without gangrene E11.51 [facility] [place] [address] [id number] [place] [id number] Oct, Type 2 diabetes mellitus with diabetic p eripheral angiopathy without gangrene E11.51 [facility] [place] [address] [id number] [facility] [place] [id number] Oct, Type 2 diabetes mellitus with diabetic p eripheral angiopathy without gangrene E11.51 ; prison current use of insulin Z79.4 ; Heart murmur R01.1 ; Essential hypertension I10 ; Venous insufficiency (chronic) (peripheral) I87.2 and Non- pressure chronic ulcer of other part of left lower leg with unspecified severity L97.829 IMMUNIZATIONS No Known Immunizations SOCIAL HISTORY Never Assessed REASON FOR VISIT Medication refill request PLAN OF CARE VITAL SIGNS MEDICATIONS Medication Instructions Dosage Frequency Start Date End Date Duration S tatus Novolin N 100 UNIT/ML Subcutaneous 2 times a day 33 units in am, 20 units pm 12h 30 days Active Novolin R 100 UNIT/ML Injection 2 times a day 6units am and 5pm 12h 30 days Active RESULTS No Results PROCEDURES No [...]
--- OUTSIDE RECORDS SUMMARY | 2019-11-12 18:30 | XMS REPORT ---
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 Active 485214499 Problem 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 Active 569419211 Problem Type 2 diabetes mellitus wit h diabetic peripheral angiopathy without gangrene E11.51 Active 677295360 Problem Venous insufficiency (chronic) (peripheral) I87.2 Active 85524357 Problem Dermatitis due to unspecified substance taken internally L27.9 Active 33396725 Problem Non-pressure chronic ulcer o f other part of left lower leg with unspecified severity L97.829 Active 5163232 05 ALLERGIES No Known Allergies ENCOUNTERS Encounter Location Date Diagnosis [place] [id number] [place], [place] [id number] Jan, Type 2 diabetes mellitus with diabetic p eripheral angiopathy without gangrene E11.51 [id number] [place], [place] [id number] December, Type 2 diabetes mellitus with diabetic p eripheral angiopathy without gangrene E11.51 ; 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 and 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 [place] [address] [place] [id number] [place] [id number] Nov, Type 2 diabetes mellitus with diabetic p eripheral angiopathy without gangrene E11.51 [place] [id number] [place] [id number] Oct, Type 2 diabetes mellitus with diabetic p eripheral angiopathy without gangrene E11.51 and Dermatitis due to unspecified substance taken internally L27.9 [facility] [place] [address] [id number] [address] [place] [address] Oct, [facility] [address] [id number] [place] [id number] Oct, [facility] [address] [id number] [place] [id number] Oct, Type 2 diabetes mellitus with diabetic p eripheral angiopathy without gangrene E11.51 [facility] [address] [id number] [place] [id number] 14 Oct, 2017 Type 2 diabetes mellitus with diabetic p eripheral angiopathy without gangrene E11.51 [facility] [address] [id number] [place] [id number] Oct, Type 2 diabetes mellitus with diabetic p eripheral angiopathy without gangrene E11.51 ; long term care phlebotomist current use of insulin Z79.4 ; Heart murmur R01.1 ; Essential hypertension I10 ; Venous insufficiency (chronic) (peripheral) I87.2 and Non- pressure chronic ulcer of other part of left lower leg with unspecified severity L97.829 IMMUNIZATIONS No Known Immunizations SOCIAL HISTORY Never Assessed REASON FOR VISIT CHM- 4 week f/u Diabetes [facility] PLAN OF CARE Activity Details Follow Up 4 Weeks Reason:dm VITAL SIGNS Height 73 in 2017-12-12 Weight 205 lbs 2017-12-12 Temperature 97 degrees Fahrenheit 2017-12-12 Heart Rate 90 bpm 2017-12-12 Respiratory Rate 16 2017-12-12 BMI 27.04 kg/m2 2017-12-12 Blood pressure systolic 110 mmHg 2017-12-12 Blood pressure diastolic 68 mmHg 2017-12-12 MEDICATIONS Medication Instructions Dosage Frequency Start Date End Date Duration S tatus Plavix 75 MG Orally Once a day 1 tablet 24h Active Simvastatin 20 MG Orally Once a day 1 tablet in the evening 24h Active Lisinopril 20 MG Orally Once a day 1 tablet 24h Active Novolin R 100 UNIT/ML Injection 2 times a day 6units am and 5pm 12h Active Geritol Complete - Not-T aking Novolin N 100 UNIT/ML Subcutaneous 2 times a day 29 units in am, 20 units pm 12h Active Aspir-81 81 MG Orally Once a day 1 tablet 24h Active RESULTS Name Result Date Reference Range GLUCOSE FINGERSTICK (IN HOUSE) 2017-12-12 GLU FINGERSTICK 175 PC Lot # [id number] Exp date 11/29/17 PROCEDURES Procedure Date Ordered Result Body Site [facility] VISIT ESTABLISHED PATIENT December 12, 2017 GLUCOSE BLOOD TEST December 12, 2017 INSTRUCTIONS MEDICATIONS ADMINISTERED No Known Medications MEDICAL (GENERAL) HISTORY Type Description Date Medical History type II diabetes Medical History hypertension Medical History TIA Medical History heart murmur 1976 dx Surgical History 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
--- OUTSIDE RECORDS SUMMARY | 2019-11-12 18:30 | XMS REPORT ---
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 Active 863835820 Problem Type 2 diabetes mellitus wit h diabetic peripheral angiopathy without gangrene E11.51 Active 609255775 Problem Venous insufficiency (chronic) (peripheral) I87.2 Active 23097129 Problem Dermatitis due to unspecified substance taken internally L27.9 Active 64798727 Problem Non-pressure chronic ulcer o f other part of left lower leg with unspecified severity L97.829 Active 4372253 05 ALLERGIES No Known Allergies ENCOUNTERS Encounter Location Date Diagnosis [place] [id number] [employer], [place] [id number] Jan, Type 2 diabetes mellitus with diabetic p eripheral angiopathy without gangrene E11.[address] [employer], [place] [id number] December, Type 2 diabetes mellitus with diabetic p eripheral angiopathy without gangrene E11.51 ; 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 and 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 [place] [address] [place] [id number] [employer] [id number] Nov, Type 2 diabetes mellitus with diabetic p eripheral angiopathy without gangrene E11.51 [place] [id number] [employer] [id number] Oct, Type 2 diabetes mellitus with diabetic p eripheral angiopathy without gangrene E11.51 and Dermatitis due to unspecified substance taken internally L27.9 [facility] [address] [id number] [address] [address] Oct, [facility] [address] [id number] [place] [id number] Oct, [facility] [address] [id number] [place] [id number] Oct, Type 2 diabetes mellitus with diabetic p eripheral angiopathy without gangrene E11.[address] [facility] [address] [id number] [place] [id number] 14 Oct, 2017 Type 2 diabetes mellitus with diabetic p eripheral angiopathy without gangrene E11.[address] [facility] [address] [id number] [place] [id number] Oct, Type 2 diabetes mellitus with diabetic p eripheral angiopathy without gangrene E11.51 ; 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.4 ; Heart murmur R01.1 ; Essential hypertension I10 ; Venous insufficiency (chronic) (peripheral) I87.2 and Non- pressure chronic ulcer of other part of left lower leg with unspecified severity L97.829 IMMUNIZATIONS No Known Immunizations SOCIAL HISTORY Never Assessed REASON FOR VISIT Diabetes---urine micro , Needs referral for new prostesis Zac ALFORD PLAN OF CARE Activity Details Follow Up 3 Months Reason:dm VITAL SIGNS Height 73 in 2018-01-09 Weight 205 lbs 2018-01-09 Temperature 97.8 degrees Fahrenheit 2018-01-09 Heart Rate 86 bpm 2018-01-09 Respiratory Rate 16 2018-01-09 BMI 27.04 kg/m2 2018-01-09 Blood pressure systolic 118 mmHg 2018-01-09 Blood pressure diastolic 70 mmHg 2018-01-09 MEDICATIONS Medication Instructions Dosage Frequency Start Date End Date Duration S tatus Plavix 75 MG Orally Once a day 1 tablet 24h Active Simvastatin 20 MG Orally Once a day 1 tablet in the evening 24h Active Misc. Devices - as directed December, Active Geritol Complete - Not-T aking Aspir-81 81 MG Orally Once a day 1 tablet 24h Active Novolin R 100 UNIT/ML Injection 2 times a day 6units am and 5pm 12h Active Lisinopril 20 MG Orally Once a day 1 tablet 24h Active Novolin N 100 UNIT/ML Subcutaneous 2 times a day 29 units in am, 20 units pm 12h Active RESULTS Name Result Date Reference Range GLUCOSE FINGERSTICK (IN HOUSE) 2018-01-09 GLU FINGERSTICK 110 PC Lot # [id number] Exp date 02/28/19 PROCEDURES Procedure Date Ordered Result Body Site [facility] VISIT ESTABLISHED PATIENT January 09, 2018 GLUCOSE BLOOD TEST January 09, 2018 INSTRUCTIONS MEDICATIONS ADMINISTERED No Known Medications MEDICAL (GENERAL) HISTORY Type Description Date Medical History type II diabetes Medical History hypertension Medical History TIA Medical History heart murmur 1976 dx Surgical History 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
--- OUTSIDE RECORDS SUMMARY | 2019-11-12 18:30 | XMS REPORT ---
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 Active 301951051 Problem 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 Active 955992681 Problem Type 2 diabetes mellitus wit h diabetic peripheral angiopathy without gangrene E11.51 Active 597491458 Problem Venous insufficiency (chronic) (peripheral) I87.2 Active 62996270 Problem Dermatitis due to unspecified substance taken internally L27.9 Active 32215369 Problem Non-pressure chronic ulcer o f other part of left lower leg with unspecified severity L97.829 Active 9783508 05 ALLERGIES No Known Allergies ENCOUNTERS Encounter Location Date Diagnosis [place] [id number] [employer], [employer] S [id number] Apr, Type 2 diabetes mellitus with diabetic p eripheral angiopathy without gangrene E11.51 ; Essential hypertension I10 and Heart murmur R01.1 [place] [address] [place] [id number] [employer] [id number] Jan, Type 2 diabetes mellitus with diabetic p eripheral angiopathy without gangrene E11.[address] [id number] [employer] [id number] December, Type 2 diabetes mellitus with diabetic p eripheral angiopathy without gangrene E11.51 ; 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 [id number] [address] [place] [address] Oct, [facility] [place] [address] [id number] [place] [id number] Oct, [facility] [place] [address] [id number] [place] [id number] Oct, Type 2 diabetes mellitus with diabetic p eripheral angiopathy without gangrene E11.51 [facility] [place] [address] [id number] [place] [id number] 14 Oct, 2017 Type 2 diabetes mellitus with diabetic p eripheral angiopathy without gangrene E11.51 [facility] [place] [address] [id number] [place] [id number] 13 Oct, 2017 Type 2 diabetes mellitus with diabetic p eripheral angiopathy without gangrene E11.51 ; exterminator current use of insulin Z79.4 ; Heart murmur R01.1 ; Essential hypertension I10 ; Venous insufficiency (chronic) (peripheral) I87.2 and Non- pressure chronic ulcer of other part of left lower leg with unspecified severity L97.829 IMMUNIZATIONS No Known Immunizations SOCIAL HISTORY Never Assessed REASON FOR VISIT Diabetes fu Ronni [facility] PLAN OF CARE Activity Details Follow Up 3 Months Reason:dm VITAL SIGNS MEDICATIONS Medication Instructions Dosage Frequency Start Date End Date Duration S tatus Simvastatin 20 mg Orally Once a day 1 tablet in the evening 24h 90 days Active Plavix 75 MG Orally Once a day 1 tablet 24h 90 days Active Aspir-81 81 MG Orally Once a day 1 tablet 24h Active Misc. Devices - as directed December, Active Novolin N 100 UNIT/ML Subcutaneous 2 times a day 33 units in am, 20 units pm 12h 30 days Active Novolin R 100 UNIT/ML Injection 2 times a day 6units am and 5pm 12h Active Geritol Complete - Activ e Lisinopril 20 MG Orally Once a day 1 tablet 24h Active RESULTS Name Result Date Reference Range A1C (IN HOUSE) 2018-04-30 A1C IN HOUSE 8.5 4.3 - 5.6 % Previous A1c 11.0 Lot [id number] Exp date 12/07 PROCEDURES Procedure Date Ordered Result Body Site GLYCATED HEMOGLOBIN TEST Apr 30, 2018 [facility] VISIT ESTABLISHED PATIENT Apr 30, 2018 INSTRUCTIONS MEDICATIONS ADMINISTERED No Known Medications [...]
--- OUTSIDE RECORDS SUMMARY | 2019-11-12 18:30 | XMS REPORT ---
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 Active 167691295 Problem Type 2 diabetes mellitus wit h diabetic peripheral angiopathy without gangrene E11.51 Active 519314377 Problem Venous insufficiency (chronic) (peripheral) I87.2 Active 38746265 Problem Dermatitis due to unspecified substance taken internally L27.9 Active 08450343 Problem Non-pressure chronic ulcer o f other part of left lower leg with unspecified severity L97.829 Active 9834229 05 ALLERGIES No Known Allergies ENCOUNTERS Encounter Location Date Diagnosis [place] [id number] [email or web address], [place] [id number] Jan, Type 2 diabetes mellitus with diabetic p eripheral angiopathy without gangrene E11.[address]005[address] [email or web address], [place] [id number] December, Type 2 diabetes mellitus with diabetic p eripheral angiopathy without gangrene E11.51 ; 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 and 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 [place] [address] [address] [place] [id number] [email or web address] [id number] Nov, Type 2 diabetes mellitus with diabetic p eripheral angiopathy without gangrene E11.51 [place] [id number] [email or web address] [id number] Oct, Type 2 diabetes mellitus with diabetic p eripheral angiopathy without gangrene E11.51 and Dermatitis due to unspecified substance taken internally L27.9 [facility] [address] [id number] [address] [place] [address] Oct, [facility] [address] [id number] [place] [id number] Oct, [facility] [address] [id number] [place] [id number] Oct, Type 2 diabetes mellitus with diabetic p eripheral angiopathy without gangrene E11.51 [facility] [address] [id number] [place] [id number] 14 Oct, 2017 Type 2 diabetes mellitus with diabetic p eripheral angiopathy without gangrene E11.51 [facility] [address] [id number] [place] [id number] Oct, Type 2 diabetes mellitus with diabetic p eripheral angiopathy without gangrene E11.51 ; 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 current use of insulin Z79.4 ; Heart murmur R01.1 ; Essential hypertension I10 ; Venous insufficiency (chronic) (peripheral) I87.2 and Non- pressure chronic ulcer of other part of left lower leg with unspecified severity L97.829 IMMUNIZATIONS No Known Immunizations SOCIAL HISTORY Never Assessed REASON FOR VISIT Establish Care, used to see a 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 in Leanen Mohan RN PLAN OF CARE Activity Details Follow Up 2 Weeks Reason:dm VITAL SIGNS Height 73 in 2017-10-30 Weight 211 lbs 2017-10-30 Temperature 98.2 degrees Fahrenheit 2017-10-30 Heart Rate 115 bpm 2017-10-30 Respiratory Rate 16 2017-10-30 BMI 27.84 kg/m2 2017-10-30 Blood pressure systolic 150 mmHg 2017-10-30 Blood pressure diastolic 78 mmHg 2017-10-30 MEDICATIONS Medication Instructions Dosage Frequency Start Date End Date Duration S tatus Plavix 75 MG Orally Once a day 1 tablet 24h Active Aspir-81 81 MG Orally Once a day 1 tablet 24h Active Novolin R 100 UNIT/ML Injection 2 times a day 6units am and 5pm 12h Active Lisinopril 20 MG Orally Once a day 1 tablet 24h Active Geritol Complete - Activ e Simvastatin 20 MG Orally Once a day 1 tablet in the evening 24h Active Novolin N 100 UNIT/ML Subcutaneous 2 times a day 25 units in am, 20 units pm 12h Active RESULTS No Results PROCEDURES Procedure Date Ordered Result Body Site GLYCATED HEMOGLOBIN TEST October 30, 2017 GLUCOSE BLOOD TEST October 30, 2017 [facility] VISIT NEW PATIENT October 30, 2017 VENIPUNCT, ROUTINE* October 30, 2017 [facility] October 30, 2017 INSTRUCTIONS MEDICATIONS ADMINISTERED No Known Medications [...]
--- OUTSIDE RECORDS SUMMARY | 2019-11-12 18:30 | XMS REPORT ---
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 Active 017627648 Problem Type 2 diabetes mellitus wit h diabetic peripheral angiopathy without gangrene E11.51 Active 088813079 Problem Venous insufficiency (chronic) (peripheral) I87.2 Active 60049391 Problem Dermatitis due to unspecified substance taken internally L27.9 Active 47486673 Problem Non-pressure chronic ulcer o f other part of left lower leg with unspecified severity L97.829 Active 3749058 05 ALLERGIES No Known Allergies ENCOUNTERS Encounter Location Date Diagnosis [place] [id number] [employer] [facility] [place], [employer] S [id number] Jan, Type 2 diabetes mellitus with diabetic p eripheral angiopathy without gangrene E11.51 [id number] [employer] [facility] [place], [employer] S [id number] December, Type 2 diabetes mellitus with diabetic p eripheral angiopathy without gangrene E11.51 ; 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 and 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 [place] [address] [address] [place] [id number] [employer] [facility] [place] [id number] Nov, Type 2 diabetes mellitus with diabetic p eripheral angiopathy without gangrene E11.51 [place] [address] [id number] [employer] [facility] [place] [id number] Oct, Type 2 diabetes mellitus with diabetic p eripheral angiopathy without gangrene E11.51 and Dermatitis due to unspecified substance taken internally L27.9 [facility] [address] [id number] [address] [address] Oct, [facility] [address] [id number] [place] [id number] Oct, [facility] [address] [id number] [place] [id number] Oct, Type 2 diabetes mellitus with diabetic p eripheral angiopathy without gangrene E11.51 [facility] [address] [id number] [place] [id number] Oct, Type 2 diabetes mellitus with diabetic p eripheral angiopathy without gangrene E11.51 [facility] [address] [id number] [place] [id number] Oct, Type 2 diabetes mellitus with diabetic p eripheral angiopathy without gangrene E11.51 ; long term care pharmacist current use of insulin Z79.4 ; Heart murmur R01.1 ; Essential hypertension I10 ; Venous insufficiency (chronic) (peripheral) I87.2 and Non- pressure chronic ulcer of other part of left lower leg with unspecified severity L97.829 IMMUNIZATIONS No Known Immunizations SOCIAL HISTORY Never Assessed REASON FOR VISIT [facility] follow up. Cellulitis Zac [place], Medication list confirmed via hospit al discharge instructions PLAN OF CARE Activity Details Follow Up 4 Weeks Reason:dm VITAL SIGNS Height 73 in 2017-11-14 Weight 211 lbs 2017-11-14 Temperature 97.9 degrees Fahrenheit 2017-11-14 Heart Rate 112 bpm 2017-11-14 Respiratory Rate 18 2017-11-14 BMI 27.84 kg/m2 2017-11-14 Blood pressure systolic 128 mmHg 2017-11-14 Blood pressure diastolic 68 mmHg 2017-11-14 MEDICATIONS Medication Instructions Dosage Frequency Start Date End Date Duration S tatus Aspir-81 81 MG Orally Once a day 1 tablet 24h Active Plavix 75 MG Orally Once a day 1 tablet 24h Active Simvastatin 20 MG Orally Once a day 1 tablet in the evening 24h Active Geritol Complete - Unkno wn Lisinopril 20 MG Orally Once a day 1 tablet 24h Active Novolin R 100 UNIT/ML Injection 2 times a day 6units am and 5pm 12h Active Novolin N 100 UNIT/ML Subcutaneous 2 times a day 29 units in am, 20 units pm 12h Active RESULTS No Results PROCEDURES Procedure Date Ordered Result Body Site [facility] VISIT ESTABLISHED PATIENT November 14, 2017 INSTRUCTIONS MEDICATIONS ADMINISTERED No Known Medications MEDICAL (GENERAL) HISTORY Type Description Date Medical History type II diabetes Medical History hypertension Medical History TIA Medical History heart murmur 1976 dx Surgical History 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
--- OUTSIDE RECORDS SUMMARY | 2019-11-12 18:30 | XMS REPORT ---
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 Active 575685526 Problem Type 2 diabetes mellitus wit h diabetic peripheral angiopathy without gangrene E11.51 Active 614385242 Problem Venous insufficiency (chronic) (peripheral) I87.2 Active 08291368 Problem Dermatitis due to unspecified substance taken internally L27.9 Active 73466526 Problem Non-pressure chronic ulcer o f other part of left lower leg with unspecified severity L97.829 Active 8243877 05 ALLERGIES No Information ENCOUNTERS Encounter Location Date Diagnosis [facility] [address] [id number] [place] [id number] Apr, [facility] [address] [id number] [employer], [place] [id number] Jan, Type 2 diabetes mellitus with diabetic p eripheral angiopathy without gangrene E11.51 [facility] [address] [id number] [place] [id number] December, Type 2 diabetes mellitus with diabetic p eripheral angiopathy without gangrene E11.51 ; 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 and 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 [facility] [address] [id number] [place] [id number] Nov, Type 2 diabetes mellitus with diabetic p eripheral angiopathy without gangrene E11.51 [facility] [address] [id number] [place] [id number] Oct, Type 2 diabetes mellitus with diabetic p eripheral angiopathy without gangrene E11.51 and Dermatitis due to unspecified substance taken internally L27.9 [facility] [address] [id number] [address] [address] Oct, [facility] [address] [id number] [place] [id number] Oct, [facility] [address] [id number] [place] [id number] Oct, Type 2 diabetes mellitus with diabetic p eripheral angiopathy without gangrene E11.51 [facility] [address] [id number] [place] [id number] 14 Oct, 2017 Type 2 diabetes mellitus with diabetic p eripheral angiopathy without gangrene E11.51 [facility] [address] [id number] [place] [id number] 13 Oct, 2017 Type 2 diabetes mellitus with diabetic p eripheral angiopathy without gangrene E11.51 ; penitentiary current use of insulin Z79.4 ; Heart murmur R01.1 ; Essential hypertension I10 ; Venous insufficiency (chronic) (peripheral) I87.2 and Non- pressure chronic ulcer of other part of left lower leg with unspecified severity L97.829 IMMUNIZATIONS No Known Immunizations SOCIAL HISTORY Never Assessed REASON FOR VISIT RX-Novolin N refill PLAN OF CARE VITAL SIGNS MEDICATIONS Medication Instructions Dosage Frequency Start Date End Date Duration S víctor Novolin N 100 UNIT/ML Subcutaneous 2 times a day 29 units in am, 20 units pm 12h Active RESULTS No Results PROCEDURES No Known [...]
--- OUTSIDE RECORDS SUMMARY | 2019-11-12 18:30 | XMS REPORT ---
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 Active 326225294 Problem Type 2 diabetes mellitus wit h diabetic peripheral angiopathy without gangrene E11.51 Active 398164918 Problem Venous insufficiency (chronic) (peripheral) I87.2 Active 55941064 Problem Dermatitis due to unspecified substance taken internally L27.9 Active 56389488 Problem Non-pressure chronic ulcer o f other part of left lower leg with unspecified severity L97.829 Active 3508263 05 ALLERGIES No Information ENCOUNTERS Encounter Location Date Diagnosis [place] [id number] [employer], [employer] [place] [id number] Jan, Type 2 diabetes mellitus with diabetic p eripheral angiopathy without gangrene E11.51 [place] [id number] [employer], [employer] [place] [id number] December, Type 2 diabetes mellitus with diabetic p eripheral angiopathy without gangrene E11.51 ; 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 and 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 [place] [address] [address] [place] [id number] [employer], [place] [id number] Nov, Type 2 diabetes mellitus with diabetic p eripheral angiopathy without gangrene E11.51 [place] [id number] [employer], [employer] S [id number] Oct, Type 2 diabetes mellitus with diabetic p eripheral angiopathy without gangrene E11.51 and Dermatitis due to unspecified substance taken internally L27.9 [facility] [address] [id number] [address] [address] Oct, [facility] [address] [id number] [place] [id number] Oct, [facility] [address] [facility] [id number] [place] [id number] Oct, Type 2 diabetes mellitus with diabetic p eripheral angiopathy without gangrene E11.51 [facility] [address] [id number] [place] [id number] 14 Oct, 2017 Type 2 diabetes mellitus with diabetic p eripheral angiopathy without gangrene E11.51 [facility] [address] [facility] [id number] [place] [id number] Oct, Type 2 diabetes mellitus with diabetic p eripheral angiopathy without gangrene E11.51 ; prison current use of insulin Z79.4 ; Heart murmur R01.1 ; Essential hypertension I10 ; Venous insufficiency (chronic) (peripheral) I87.2 and Non- pressure chronic ulcer of other part of left lower leg with unspecified severity L97.829 IMMUNIZATIONS No Known Immunizations SOCIAL HISTORY Never Assessed REASON FOR VISIT Phone Call/ PLAN OF CARE VITAL SIGNS MEDICATIONS Unknown Medications RESULTS No Results PROCEDURES No Known procedures INSTRUCTIONS MEDICATIONS ADMINISTERED No Known Medications MEDICAL (GENERAL) HISTORY Type Description Date Medical History type II diabetes Medical History hypertension Medical History TIA Medical History heart murmur 1977 dx Surgical History 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
--- OUTSIDE RECORDS SUMMARY | 2019-11-12 18:30 | XMS REPORT ---
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 Active 616230710 Problem Type 2 diabetes mellitus wit h diabetic peripheral angiopathy without gangrene E11.51 Active 134532803 Problem Venous insufficiency (chronic) (peripheral) I87.2 Active 82477321 Problem Dermatitis due to unspecified substance taken internally L27.9 Active 02808338 Problem Non-pressure chronic ulcer o f other part of left lower leg with unspecified severity L97.829 Active 9120054 05 ALLERGIES No Information ENCOUNTERS Encounter Location Date Diagnosis [place] [id number] [employer], [employer] S [id number] Jan, Type 2 diabetes mellitus with diabetic p eripheral angiopathy without gangrene E11.51 [place] [address] [id number] [employer], [employer] S [id number] December, Type 2 diabetes mellitus with diabetic p eripheral angiopathy without gangrene E11.51 ; 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 and 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 [place] [address] [address] [place] [id number] [place] [id number] Nov, Type 2 diabetes mellitus with diabetic p eripheral angiopathy without gangrene E11.51 [place] [address] [id number] [employer], [employer] S [id number] Oct, Type 2 diabetes mellitus with diabetic p eripheral angiopathy without gangrene E11.51 and Dermatitis due to unspecified substance taken internally L27.9 [facility] [address] [id number] [address] [address] Oct, [facility] [address] [id number] [place] [id number] Oct, [facility] [address] [id number] [place] [id number] Oct, Type 2 diabetes mellitus with diabetic p eripheral angiopathy without gangrene E11.51 [facility] [address] [id number] [place] [id number] 14 Oct, 2017 Type 2 diabetes mellitus with diabetic p eripheral angiopathy without gangrene E11.51 [facility] [address] [id number] [place] [id number] 13 Oct, 2017 Type 2 diabetes mellitus with diabetic p eripheral angiopathy without gangrene E11.51 ; intermediate current use of insulin Z79.4 ; Heart murmur R01.1 ; Essential hypertension I10 ; Venous insufficiency (chronic) (peripheral) I87.2 and Non- pressure chronic ulcer of other part of left lower leg with unspecified severity L97.829 IMMUNIZATIONS No Known Immunizations SOCIAL HISTORY Never Assessed REASON FOR VISIT RX-Novolin R refill PLAN OF CARE VITAL SIGNS MEDICATIONS Medication Instructions Dosage Frequency Start Date End Date Duration S víctor Novolin R 100 UNIT/ML Injection 2 times a day 6units am and 5pm 12h Active RESULTS No Results PROCEDURES No [...]
--- OUTSIDE RECORDS SUMMARY | 2019-11-12 18:30 | XMS REPORT ---
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 Active 874078972 Problem Type 2 diabetes mellitus wit h diabetic peripheral angiopathy without gangrene E11.51 Active 201292343 Problem Venous insufficiency (chronic) (peripheral) I87.2 Active 85198263 Problem Dermatitis due to unspecified substance taken internally L27.9 Active 17330399 Problem Non-pressure chronic ulcer o f other part of left lower leg with unspecified severity L97.829 Active 2022046 05 ALLERGIES No Information ENCOUNTERS Encounter Location Date Diagnosis [facility] [id number] [place] [id number] May, Encounter for immunization Z23 [facility] [address] [place] [id number] [place] [address], S [id number] May, [facility] [address] [place] [id number] [place] [address], [place] [id number] Apr, Type 2 diabetes mellitus with diabetic p eripheral angiopathy without gangrene E11.51 ; Essential hypertension I10 and Heart murmur R01.1 [facility] [address] [place] [id number] [place] [id number] Jan, Type 2 diabetes mellitus with diabetic p eripheral angiopathy without gangrene E11.51 [facility] [address] [place] [id number] [place] [id number] December, Type 2 diabetes mellitus with diabetic p eripheral angiopathy without gangrene E11.51 ; 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 and 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 [facility] [place] [address] [id number] [place] [id number] Nov, Type 2 diabetes mellitus with diabetic p eripheral angiopathy without gangrene E11.51 [facility] [place] [address] [id number] [place] [id number] Oct, Type 2 diabetes mellitus with diabetic p eripheral angiopathy without gangrene E11.51 and Dermatitis due to unspecified substance taken internally L27.9 [facility] [address] [facility] [id number] [address] [address] Oct, [facility] [address] [id number] [place] [id number] Oct, [facility] [place] [address] [id number] [place] [id number] Oct, Type 2 diabetes mellitus with diabetic p eripheral angiopathy without gangrene E11.51 [facility] [place] [address] [id number] [place] [id number] 14 Oct, 2017 Type 2 diabetes mellitus with diabetic p eripheral angiopathy without gangrene E11.51 [facility] [place] [address] [id number] [place] [id number] Oct, Type 2 diabetes mellitus with diabetic p eripheral angiopathy without gangrene E11.51 ; skilled nursing current use of insulin Z79.4 ; Heart murmur R01.1 ; Essential hypertension I10 ; Venous insufficiency (chronic) (peripheral) I87.2 and Non- pressure chronic ulcer of other part of left lower leg with unspecified severity L97.829 IMMUNIZATIONS Vaccine Route Administration Date Status FLULAVAL QUAD 0.5ML (6 MO & UP) 2017 IM Intramuscular Jun 03 18 Administered SOCIAL HISTORY Never Assessed REASON FOR VISIT Flu shot Lesleemagaly [place] PLAN OF CARE VITAL SIGNS MEDICATIONS Unknown Medications RESULTS No Results PROCEDURES Procedure Date Ordered Result Body Site FLULAVAL QUAD 0.5ML (6 MO & UP) 2017Jun 03, 2018 ADMN FLU VAC NO FEE SCHED SAME DAY Jun 03, 2018 SINGLE IMMUNIZATION ADMIN Jun 03, 2018 INSTRUCTIONS MEDICATIONS ADMINISTERED No Known Medications [...]
--- OUTSIDE RECORDS SUMMARY | 2019-11-12 18:30 | XMS REPORT ---
Author Author Warren PAYTON Organization 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 Active 714874576 Problem Type 2 diabetes mellitus wit h diabetic peripheral angiopathy without gangrene E11.51 Active 123956650 Problem Venous insufficiency (chronic) (peripheral) I87.2 Active 43279719 Problem Dermatitis due to unspecified substance taken internally L27.9 Active 43688024 Problem Non-pressure chronic ulcer o f other part of left lower leg with unspecified severity L97.829 Active 8585183 05 ALLERGIES No Information ENCOUNTERS Encounter Location Date Diagnosis [facility] [address] [id number] [employer] [id number] Jan, Type 2 diabetes mellitus with diabetic p eripheral angiopathy without gangrene E11.51 [facility] [address] [id number] [place] [id number] December, Type 2 diabetes mellitus with diabetic p eripheral angiopathy without gangrene E11.51 ; 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 [address] [id number] [address] [place] [address] Oct, [facility] [address] [id number] [place] [id number] Oct, [facility] [address] [facility] [id number] [place] [id number] Oct, Type 2 diabetes mellitus with diabetic p eripheral angiopathy without gangrene E11.51 [facility] [address] [facility] [id number] [place] [id number] 14 Oct, 2017 Type 2 diabetes mellitus with diabetic p eripheral angiopathy without gangrene E11.51 [facility] [address] [facility] [id number] [place] [id number] Oct, Type 2 diabetes mellitus with diabetic p eripheral angiopathy without gangrene E11.51 ; care home current use of insulin Z79.4 ; Heart murmur R01.1 ; Essential hypertension I10 ; Venous insufficiency (chronic) (peripheral) I87.2 and Non- pressure chronic ulcer of other part of left lower leg with unspecified severity L97.829 IMMUNIZATIONS No Known Immunizations SOCIAL HISTORY Never Assessed REASON FOR VISIT Hospital admit/DC PLAN OF CARE VITAL SIGNS MEDICATIONS Medication Instructions Dosage Frequency Start Date End Date Duration S americaus Clindamycin HCl 300 MG Orally every 8 hrs 1 capsule 8h 2017Oct, Active Cephalexin 500 mg Orally 3 times a day 1 capsule 8h Oct, Oct, Active Novolin N 100 UNIT/ML Subcutaneous 2 times a day 25 units in am, 20 units pm 12h Active Lisinopril 20 MG Orally Once a day 1 tablet 24h Active Novolin R 100 UNIT/ML Injection 2 times a day 6units am and 5pm 12h Active Simvastatin 20 MG Orally Once a day 1 tablet in the evening 24h Active Plavix 75 MG Orally Once a day 1 tablet 24h Active Aspir-81 81 MG Orally Once a day 1 tablet 24h Active Geritol Complete - Not-T aking RESULTS No Results PROCEDURES No Known procedures [...]
--- OUTSIDE RECORDS SUMMARY | 2019-11-12 18:30 | XMS REPORT ---
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 Active 166171289 Problem Type 2 diabetes mellitus wit h diabetic peripheral angiopathy without gangrene E11.51 Active 919184110 Problem Venous insufficiency (chronic) (peripheral) I87.2 Active 78402785 Problem Dermatitis due to unspecified substance taken internally L27.9 Active 81964959 Problem Non-pressure chronic ulcer o f other part of left lower leg with unspecified severity L97.829 Active 2798716 05 ALLERGIES No Information ENCOUNTERS Encounter Location Date Diagnosis [place] [id number], [place] [id number] Jan, Type 2 diabetes mellitus with diabetic p eripheral angiopathy without gangrene E11.51 [place] [address] [id number] [place] [id number] December, Type 2 diabetes mellitus with diabetic p eripheral angiopathy without gangrene E11.51 ; 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 and 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 [place] [address] [address] [place] [id number] [id number] Nov, Type 2 diabetes mellitus with diabetic p eripheral angiopathy without gangrene E11.51 [place] [address] [id number] [place] [id number] Oct, Type 2 diabetes mellitus with diabetic p eripheral angiopathy without gangrene E11.51 and Dermatitis due to unspecified substance taken internally L27.9 [facility] [address] [id number] [address] [place] [address] Oct, [facility] [address] [id number] [place] [id number] Oct, [facility] [address] [facility] [id number] [place] [id number] Oct, Type 2 diabetes mellitus with diabetic p eripheral angiopathy without gangrene E11.51 [facility] [address] [id number] [place] [id number] Oct, 2017 Type 2 diabetes mellitus with diabetic p eripheral angiopathy without gangrene E11.51 [facility] [address] [facility] [id number] [place] [id number] Oct, Type 2 diabetes mellitus with diabetic p eripheral angiopathy without gangrene E11.51 ; [facility] current use of insulin Z79.4 ; Heart murmur R01.1 ; Essential hypertension I10 ; Venous insufficiency (chronic) (peripheral) I87.2 and Non- pressure chronic ulcer of other part of left lower leg with unspecified severity L97.829 IMMUNIZATIONS No Known Immunizations SOCIAL HISTORY Never Assessed REASON FOR VISIT Requests return call PLAN OF CARE VITAL SIGNS MEDICATIONS Medication Instructions Dosage Frequency Start Date End Date Duration Carmela Sheehan N 100 UNIT/ML Subcutaneous 2 times a [...]
--- OUTSIDE RECORDS SUMMARY | 2019-11-12 18:31 | XMS REPORT | Continuity of Care Document ---
Author Organization Unknown Address Unknown Phone Unavailable Allergies Active Description Code Type Severity Reaction Onset Reported/Identified Relationship to Patient Clinical Status Yes No Known Drug Allergies [id number] Drug Allergy Unknown N/A 11/11/2019 Medications There is no data. Problems Date Dx Coded Attending Type Code Diagnosis Diagnosed By 11/07/2017 MARQUIS COLMENARES APRN Ot L03.116 CELLULITIS OF LEFT LOWER LIMB 11/07/2017 MARQUIS COLMENARES APRN Ot 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 11/09/2017 [facility] BERNARD VIDAL Ot E11.9 TYPE 2 DIABETES MELLITUS WITHOUT COMPLIC 11/09[facility] Ot E78.00 PURE HYPERCHOLESTEROLEMIA, UNSPECIFIED 11/09/2017 [facility] BERNARD VIDAL Ot I10 ESSENTIAL (PRIMARY) HYPERTENSION 11/09/2017 [facility] Ot L03.115 CELLULITIS OF RIGHT LOWER LIMB 11/09[facility] Ot L03.116 CELLULITIS OF LEFT LOWER LIMB 11/09/2017 [facility] BERNARD VIDAL Ot N40.0 BENIGN PROSTATIC HYPERPLASIA WITHOUT LOW 11/09/2017 [facility] Ot T87.43 INFECTION OF AMPUTATION STUMP, RIGHT LOW 11/09/2017 [facility] BERNARD VIDAL Ot T87.44 INFECTION OF AMPUTATION STUMP, LEFT LOWE 11/09/2017 [facility] Ot Z79.4 RESIDENT IN DIAGNOSTIC RADIOLOGY (CURRENT) USE OF INSULIN 11/09/2017 [facility] DO Ot 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 RIGHT LEG BELOW KNEE 11/09/2017 [facility] Urb[facility] DO Ot 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 11/14/2017 MARQUIS COLMENARES APRN Ot B36.9 SUPERFICIAL MYCOSIS, UNSPECIFIED 11/14/2017 DEDRA, MARQUIS R PAINT MIXER Ot L03.116 CELLULITIS OF LEFT LOWER LIMB 11/14/2017 DEDRA MARQUIS R PAINT MIXER Ot L97.122 NON-PRESSURE CHRONIC ULCER OF LEFT THIGH 11/14/2017 MARQUIS COLMENARES R PAINT MIXER Ot 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 11/22/2017 D[facility] MARQUIS R PAINT MIXER Ot L03.116 CELLULITIS OF LEFT LOWER LIMB 11/22/2017 MARQUIS COLMENARES R PAINT MIXER Ot 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 11/26/2017 MARQUIS COLMENARES R PAINT MIXER Ot B36.9 SUPERFICIAL MYCOSIS, UNSPECIFIED 11/26/2017 D[facility]RA MARQUIS R PAINT MIXER Ot L03.116 CELLULITIS OF LEFT LOWER LIMB 11/26/2017 DEDRA MARQUIS R PAINT MIXER Ot L97.122 NON-PRESSURE CHRONIC ULCER OF LEFT THIGH 11/26/2017 D[facility] MARQUIS R PAINT MIXER Ot 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 11/26/2017 MARQUIS COLMENARES R PAINT MIXER Ot B36.9 SUPERFICIAL MYCOSIS, UNSPECIFIED 11/26/2017 MARQUIS COLMENARES R PAINT MIXER Ot L03.116 CELLULITIS OF LEFT LOWER LIMB 11/26/2017 D[facility] MARQUIS R PAINT MIXER Ot L97.122 NON-PRESSURE CHRONIC ULCER OF LEFT THIGH 11/26/2017 MARQUIS COLMENARES R PAINT MIXER Ot 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 11/28/2017 MARQUIS COLMENARES R PAINT MIXER Ot B36.9 SUPERFICIAL MYCOSIS, UNSPECIFIED 11/28/2017 D[facility] MARQUIS R PAINT MIXER Ot L03.116 CELLULITIS OF LEFT LOWER LIMB 11/28/2017 D[facility]RA MARQUIS R PAINT MIXER Ot L97.122 NON-PRESSURE CHRONIC ULCER OF LEFT THIGH 11/28/2017 DEDRA MARQUIS R PAINT MIXER Ot 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 12/04/2017 D[facility] MARQUIS R PAINT MIXER Ot L03.116 CELLULITIS OF LEFT LOWER LIMB 12/04/2017 MARQUIS COLMENARES R PAINT MIXER Ot 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 12/05/2017 MARQUIS COLMENARES R PAINT MIXER Ot B36.9 SUPERFICIAL MYCOSIS, UNSPECIFIED 12/05/2017 MARQUIS COLMENARES R PAINT MIXER Ot L03.116 CELLULITIS OF LEFT LOWER LIMB 12/05/2017 DEDRA, MARQUIS R PAINT MIXER Ot L97.122 NON-PRESSURE CHRONIC ULCER OF LEFT THIGH 12/05/2017 D[facility] MARQUIS R PAINT MIXER Ot 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 12/12/2017 MARQUIS COLMENARES R PAINT MIXER Ot B36.9 SUPERFICIAL MYCOSIS, UNSPECIFIED 12/12/2017 DEDRA MARQUIS R PAINT MIXER Ot L03.116 CELLULITIS OF LEFT LOWER LIMB 12/12/2017 DEDRA MARQUIS R PAINT MIXER Ot L97.122 NON-PRESSURE CHRONIC ULCER OF LEFT THIGH 12/12/2017 MARQUIS COLMENARES R PAINT MIXER Ot 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 12/18/2017 MARQUIS COLMENARES R PAINT MIXER Ot B36.9 SUPERFICIAL MYCOSIS, UNSPECIFIED 12/18/2017 DEDRAMARQUIS R PAINT MIXER Ot L03.116 CELLULITIS OF LEFT LOWER LIMB 12/18/2017 DEDRA MARQUIS R PAINT MIXER Ot L97.121 NON-PRS CHRONIC ULCER OF LEFT THIGH LIMI 12/18/2017 DEDRA MARQUIS R PAINT MIXER Ot L97.122 NON-PRESSURE CHRONIC ULCER OF LEFT THIGH 12/18/2017 MARQUIS COLMENARES R PAINT MIXER Ot 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 12/18/2017 MARQUIS COLMENARES R PAINT MIXER Ot B36.9 SUPERFICIAL MYCOSIS, UNSPECIFIED 12/18/2017 MARQUIS COLMENARES R PAINT MIXER Ot L03.116 CELLULITIS OF LEFT LOWER LIMB 12/18/2017 DEDRA MARQUIS R PAINT MIXER Ot L97.122 NON-PRESSURE CHRONIC ULCER OF LEFT THIGH 12/18/2017 MARQUIS COLMENARES R PAINT MIXER Ot 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 12/20/2017 MARQUIS COLMENARES R PAINT MIXER Ot B36.9 SUPERFICIAL MYCOSIS, UNSPECIFIED 12/20/2017 DEDRA MARQUIS R PAINT MIXER Ot L03.116 CELLULITIS OF LEFT LOWER LIMB 12/20/2017 DEDRA MARQUIS R PAINT MIXER Ot L97.122 NON-PRESSURE CHRONIC ULCER OF LEFT THIGH 12/20/2017 MARQUIS COLMENARES R PAINT MIXER Ot 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 12/21/2017 MARQUIS COLMENARES R PAINT MIXER Ot B36.9 SUPERFICIAL MYCOSIS, UNSPECIFIED 12/21/2017 MARQUIS COLMENARES R PAINT MIXER Ot L03.116 CELLULITIS OF LEFT LOWER LIMB 12/21/2017 DEDRA, MARQUIS R PAINT MIXER Ot L97.121 NON-PRS CHRONIC ULCER OF LEFT THIGH LIMI 12/21/2017 D[facility] MARQUIS R PAINT MIXER Ot L97.122 NON-PRESSURE CHRONIC ULCER OF LEFT THIGH 12/21/2017 MARQUIS COLMENARES PAINT MIXER Ot 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 12/24/2017 MARQUIS COLMENARES PAINT MIXER Ot B36.9 SUPERFICIAL MYCOSIS, UNSPECIFIED 12/24/2017 MARQUIS COLMENARES R PAINT MIXER Ot L03.116 CELLULITIS OF LEFT LOWER LIMB 12/24/2017 DEDRA MARQUIS R PAINT MIXER Ot L97.122 NON-PRESSURE CHRONIC ULCER OF LEFT THIGH 12/24/2017 D[facility] MARQUIS R PAINT MIXER Ot 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 12/25/2017 MARQUIS COLMENARES R PAINT MIXER Ot B36.9 SUPERFICIAL MYCOSIS, UNSPECIFIED 12/25/2017 D[facility] MARQUIS R PAINT MIXER Ot L03.116 CELLULITIS OF LEFT LOWER LIMB 12/25/2017 MARQUIS COLMENARES PAINT MIXER Ot L97.122 NON-PRESSURE CHRONIC ULCER OF LEFT THIGH 12/25/2017 MARQUIS COLMENARES R PAINT MIXER Ot 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 12/27/2017 MARQUIS COLMENARES R PAINT MIXER Ot B36.9 SUPERFICIAL MYCOSIS, UNSPECIFIED 12/27/2017 MARQUIS COLMENARES R PAINT MIXER Ot L03.116 CELLULITIS OF LEFT LOWER LIMB 12/27/2017 D[facility] MARQUIS R PAINT MIXER Ot L97.121 NON-PRS CHRONIC ULCER OF LEFT THIGH LIMI 12/27/2017 MARQUIS COLMENARES PAINT MIXER Ot L97.122 NON-PRESSURE CHRONIC ULCER OF LEFT THIGH 12/27/2017 MARQUIS COLMENARES R PAINT MIXER Ot 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 01/02/2018 MARQUIS COLMENARES R PAINT MIXER Ot B36.9 SUPERFICIAL MYCOSIS, UNSPECIFIED 01/02/2018 MARQUIS COLMENARES R PAINT MIXER Ot L03.116 CELLULITIS OF LEFT LOWER LIMB 01/02/2018 MARQUIS COLMENARES R PAINT MIXER Ot L97.122 NON-PRESSURE CHRONIC ULCER OF LEFT THIGH 01/02/2018 MARQUIS COLMENARES R PAINT MIXER Ot 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 01/03/2018 MARQUIS COLMENARES R PAINT MIXER Ot B36.9 SUPERFICIAL MYCOSIS, UNSPECIFIED 01/03/2018 MARQUIS COLMENARES R PAINT MIXER Ot L03.116 CELLULITIS OF LEFT LOWER LIMB 01/03/2018 MARQUIS COLMENARES PAINT MIXER Ot L97.121 NON-PRS CHRONIC ULCER OF LEFT THIGH LIMI 01/03/2018 MARQUIS COLMENARES R PAINT MIXER Ot L97.122 NON-PRESSURE CHRONIC ULCER OF LEFT THIGH 01/03/2018 MARQUIS COLMENARES R PAINT MIXER Ot 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 01/07/2018 MARQUIS COLMENARES R PAINT MIXER Ot B36.9 SUPERFICIAL MYCOSIS, UNSPECIFIED 01/07/2018 D[facility] MARQUIS R PAINT MIXER Ot L03.116 CELLULITIS OF LEFT LOWER LIMB 01/07/2018 D[facility] MARQUIS R PAINT MIXER Ot L97.122 NON-PRESSURE CHRONIC ULCER OF LEFT THIGH 01/07/2018 MARQUIS COLMENARES R PAINT MIXER Ot 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 01/07/2018 MARQUIS COLMENARES PAINT MIXER Ot B36.9 SUPERFICIAL MYCOSIS, UNSPECIFIED 01/07/2018 MARQUIS COLMENARES R PAINT MIXER Ot L03.116 CELLULITIS OF LEFT LOWER LIMB 01/07/2018 DED[facility] MARQUIS R PAINT MIXER Ot L97.122 NON-PRESSURE CHRONIC ULCER OF LEFT THIGH 01/07/2018 MARQUIS COLMENARES R PAINT MIXER Ot 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 01/07/2018 MARQUIS COLMENARES R PAINT MIXER Ot B36.9 SUPERFICIAL MYCOSIS, UNSPECIFIED 01/07/2018 MARQUIS COLMENARES R PAINT MIXER Ot L03.116 CELLULITIS OF LEFT LOWER LIMB 01/07/2018 MARQUIS COLMENARES PAINT MIXER Ot L97.122 NON-PRESSURE CHRONIC ULCER OF LEFT THIGH 01/07/2018 MARQUIS COLMENARES R PAINT MIXER Ot 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 01/07/2018 MARQUIS COLMENARES R PAINT MIXER Ot B36.9 SUPERFICIAL MYCOSIS, UNSPECIFIED 01/07/2018 MARQUIS COLMENARES R PAINT MIXER Ot L03.116 CELLULITIS OF LEFT LOWER LIMB 01/07/2018 MARQUIS COLMENARES R PAINT MIXER Ot L97.122 NON-PRESSURE CHRONIC ULCER OF LEFT THIGH 01/07/2018 MARQUIS COLMENARES R PAINT MIXER Ot 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 01/08/2018 MARQUIS COLMENARES R PAINT MIXER Ot B36.9 SUPERFICIAL MYCOSIS, UNSPECIFIED 01/08/2018 MARQUIS COLMENARES PAINT MIXER Ot L03.116 CELLULITIS OF LEFT LOWER LIMB 01/08/2018 MARQUIS COLMENARES PAINT MIXER Ot L97.121 NON-PRS CHRONIC ULCER OF LEFT THIGH LIMI 01/08/2018 MARQUIS COLMENARES PAINT MIXER Ot L97.122 NON-PRESSURE CHRONIC ULCER OF LEFT THIGH 01/08/2018 MARQUIS COLMENARES PAINT MIXER Ot 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 01/08/2018 MARQUIS COLMENARES PAINT MIXER Ot Z51.81 ENCOUNTER FOR THERAPEUTIC DRUG LEVEL MON 01/08/2018 MARQUIS COLMENARES PAINT MIXER Ot Z79.899 OTHER GROUP HOME (CURRENT) DRUG THERAPY 01/09/2018 MARQUIS COLMENARES PAINT MIXER Ot B36.9 SUPERFICIAL MYCOSIS, UNSPECIFIED 01/09/2018 MARQUIS COLMENARES PAINT MIXER Ot L03.116 CELLULITIS OF LEFT LOWER LIMB 01/09/2018 MARQUIS COLMENARES PAINT MIXER Ot L97.121 NON-PRS CHRONIC ULCER OF LEFT THIGH LIMI 01/09/2018 MARQUIS COLMENARES R PAINT MIXER Ot 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 01/14/2018 MARQUIS COLMENARES R PAINT MIXER Ot B36.9 SUPERFICIAL MYCOSIS, UNSPECIFIED 01/14/2018 MARQUIS COLMENARES R PAINT MIXER Ot L03.116 CELLULITIS OF LEFT LOWER LIMB 01/14/2018 MARQUIS COLMENARES PAINT MIXER Ot L97.121 NON-PRS CHRONIC ULCER OF LEFT THIGH LIMI 01/14/2018 MARQUIS COLMENARES PAINT MIXER Ot 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 01/16/2018 MARQUIS COLMENARES PAINT MIXER Ot B36.9 SUPERFICIAL MYCOSIS, UNSPECIFIED 01/16/2018 MARQUIS COLMENARES R PAINT MIXER Ot L03.116 CELLULITIS OF LEFT LOWER LIMB 01/16/2018 MARQUIS COLMENARES R PAINT MIXER Ot L97.121 NON-PRS CHRONIC ULCER OF LEFT THIGH LIMI 01/16/2018 MARQUIS COLMENARES R PAINT MIXER Ot 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 01/16/2018 MARQUIS COLMENARES R PAINT MIXER Ot B36.9 SUPERFICIAL MYCOSIS, UNSPECIFIED 01/16/2018 MARQUIS COLMENARES R PAINT MIXER Ot L03.116 CELLULITIS OF LEFT LOWER LIMB 01/16/2018 MARQUIS COLMENARES PAINT MIXER Ot L97.121 NON-PRS CHRONIC ULCER OF LEFT THIGH LIMI 01/16/2018 D[facility] MARQUIS R PAINT MIXER Ot L97.122 NON-PRESSURE CHRONIC ULCER OF LEFT THIGH 01/16/2018 DEDRA MARQUIS R PAINT MIXER Ot 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 01/22/2018 DEDRA MARQUIS R PAINT MIXER Ot B36.9 SUPERFICIAL MYCOSIS, UNSPECIFIED 01/22/2018 DEDRA MARQUIS R PAINT MIXER Ot L03.116 CELLULITIS OF LEFT LOWER LIMB 01/22/2018 DEDRA MARQUIS R PAINT MIXER Ot L97.121 NON-PRS CHRONIC ULCER OF LEFT THIGH LIMI 01/22/2018 DEDRA MARQUIS R PAINT MIXER Ot L97.122 NON-PRESSURE CHRONIC ULCER OF LEFT THIGH 01/22/2018 DEDRA MARQUIS R PAINT MIXER Ot 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 01/23/2018 DEDRA MARQUIS R PAINT MIXER Ot B36.9 SUPERFICIAL MYCOSIS, UNSPECIFIED 01/23/2018 DEDRA MARQUIS R PAINT MIXER Ot L03.116 CELLULITIS OF LEFT LOWER LIMB 01/23/2018 MARQUIS COLMENARES R PAINT MIXER Ot L97.122 NON-PRESSURE CHRONIC ULCER OF LEFT THIGH 01/23/2018 DEDRA MARQUIS R PAINT MIXER Ot 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 01/23/2018 MARQUIS COLMENARES R PAINT MIXER Ot B36.9 SUPERFICIAL MYCOSIS, UNSPECIFIED 01/23/2018 DEDRA MARQUIS R PAINT MIXER Ot L03.116 CELLULITIS OF LEFT LOWER LIMB 01/23/2018 DEDRA MARQUIS R PAINT MIXER Ot L97.122 NON-PRESSURE CHRONIC ULCER OF LEFT THIGH 01/23/2018 DEDRA MARQUIS R PAINT MIXER Ot 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 01/28/2018 DEDRA MARQUIS R PAINT MIXER Ot B36.9 SUPERFICIAL MYCOSIS, UNSPECIFIED 01/28/2018 DEDRA MARQUIS R PAINT MIXER Ot L03.116 CELLULITIS OF LEFT LOWER LIMB 01/28/2018 DEDRA MARQUIS R PAINT MIXER Ot L97.122 NON-PRESSURE CHRONIC ULCER OF LEFT THIGH 01/28/2018 DEDRA MARQUIS R PAINT MIXER Ot 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 01/30/2018 DEDRA MARQUIS R PAINT MIXER Ot B36.9 SUPERFICIAL MYCOSIS, UNSPECIFIED 01/30/2018 DEDRA MARQUIS R PAINT MIXER Ot L03.116 CELLULITIS OF LEFT LOWER LIMB 01/30/2018 DEDRAPASCUALN R PAINT MIXER Ot L97.121 NON-PRS CHRONIC ULCER OF LEFT THIGH LIMI 01/30/2018 DEDRA MARQUIS R PAINT MIXER Ot 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 02/01/2018 MARQUIS COLMENARES R PAINT MIXER Ot B36.9 SUPERFICIAL MYCOSIS, UNSPECIFIED 02/01/2018 MARQUIS COLMENARES R PAINT MIXER Ot L03.116 CELLULITIS OF LEFT LOWER LIMB 02/01/2018 MARQUIS COLMENARES R PAINT MIXER Ot L97.121 NON-PRS CHRONIC ULCER OF LEFT THIGH LIMI 02/01/2018 DEDRA MARQUIS R PAINT MIXER Ot L97.122 NON-PRESSURE CHRONIC ULCER OF LEFT THIGH 02/01/2018 MARQUIS COLMENARES R PAINT MIXER Ot 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 02/04/2018 MARQUIS COLMENARES R PAINT MIXER Ot B36.9 SUPERFICIAL MYCOSIS, UNSPECIFIED 02/04/2018 MARQUIS COLMENARES R PAINT MIXER Ot L03.116 CELLULITIS OF LEFT LOWER LIMB 02/04/2018 MARQUIS COLMENARES R PAINT MIXER Ot L97.121 NON-PRS CHRONIC ULCER OF LEFT THIGH LIMI 02/04/2018 DEDRA MARQUIS R PAINT MIXER Ot L97.122 NON-PRESSURE CHRONIC ULCER OF LEFT THIGH 02/04/2018 MARQUIS COLMENARES R PAINT MIXER Ot 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 02/05/2018 MARQUIS COLMENARES R PAINT MIXER Ot B36.9 SUPERFICIAL MYCOSIS, UNSPECIFIED 02/05/2018 MARQUIS COLMENARES PAINT MIXER Ot L03.116 CELLULITIS OF LEFT LOWER LIMB 02/05/2018 MARQUIS COLMENARES PAINT MIXER Ot L97.121 NON-PRS CHRONIC ULCER OF LEFT THIGH LIMI 02/05/2018 MARQUIS COLMENARES R PAINT MIXER Ot 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 02/13/2018 MARQUIS COLMENARES PAINT MIXER Ot B36.9 SUPERFICIAL MYCOSIS, UNSPECIFIED 02/13/2018 MARQUIS COLMENARES R PAINT MIXER Ot L03.116 CELLULITIS OF LEFT LOWER LIMB 02/13/2018 MARQUIS COLMENARES R PAINT MIXER Ot L97.122 NON-PRESSURE CHRONIC ULCER OF LEFT THIGH 02/13/2018 MARQUIS COLMENARES R PAINT MIXER Ot 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 03/01/2018 DEDRA MARQUIS Torres PAINT MIXER Ot B36.9 SUPERFICIAL MYCOSIS, UNSPECIFIED 03/01/2018 MARUQIS COLMENARES R PAINT MIXER Ot L03.116 CELLULITIS OF LEFT LOWER LIMB 03/01/2018 MARQUIS COLMENARES PAINT MIXER Ot L97.121 NON-PRS CHRONIC ULCER OF LEFT THIGH LIMI 03/01/2018 DEDRA MARQUIS Torres PAINT MIXER Ot 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 03/01/2018 MARQUIS COLMENARES PAINT MIXER Ot B36.9 SUPERFICIAL MYCOSIS, UNSPECIFIED 03/01/2018 MARQUIS COLMENARES R PAINT MIXER Ot L03.116 CELLULITIS OF LEFT LOWER LIMB 03/01/2018 MARQUIS COLMENARES R PAINT MIXER Ot L97.121 NON-PRS CHRONIC ULCER OF LEFT THIGH LIMI 03/01/2018 MARQUIS COLMENARES PAINT MIXER Ot 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 03/04/2018 MARQUIS COLMENARES PAINT MIXER Ot Z51.81 ENCOUNTER FOR THERAPEUTIC DRUG LEVEL MON 03/04/2018 MARQUIS COLMENARES R PAINT MIXER Ot Z79.899 OTHER GROUP HOME (CURRENT) DRUG THERAPY 03/05/2018 MARQUIS COLMENARES R PAINT MIXER Ot Z51.81 ENCOUNTER FOR THERAPEUTIC DRUG LEVEL MON 03/05/2018 MARQUIS COLMENARES R PAINT MIXER Ot Z79.899 OTHER GROUP HOME (CURRENT) DRUG THERAPY 03/11/2018 MARQUIS COLMENARES PAINT MIXER Ot B36.9 SUPERFICIAL MYCOSIS, UNSPECIFIED 03/11/2018 MARQUIS COLMENARES PAINT MIXER Ot L03.116 CELLULITIS OF LEFT LOWER LIMB 03/11/2018 MARQUIS COLMENARES PAINT MIXER Ot L97.122 NON-PRESSURE CHRONIC ULCER OF LEFT THIGH 03/11/2018 MARQUIS COLMENARES PAINT MIXER Ot 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 2019 MARQUIS COLMENARES R PAINT MIXER Ot L03.116 CELLULITIS OF LEFT LOWER LIMB 2019 MARQUIS COLMENARES PAINT MIXER Ot 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 2019 MARQUIS COLMENARES PAINT MIXER Ot B36.9 SUPERFICIAL MYCOSIS, UNSPECIFIED 2019 MARQUIS COLMENARES PAINT MIXER Ot L03.116 CELLULITIS OF LEFT LOWER LIMB 2019 MARQUIS COLMENARES PAINT MIXER Ot L97.122 NON-PRESSURE CHRONIC ULCER OF LEFT THIGH 2019 DEDRA MARQUIS R PAINT MIXER Ot 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 2019 DEDRAMARQUIS R PAINT MIXER Ot B36.9 SUPERFICIAL MYCOSIS, UNSPECIFIED 2019 DEDRA MARQUIS R PAINT MIXER Ot L03.116 CELLULITIS OF LEFT LOWER LIMB 2019 DEDRA MARQUIS R PAINT MIXER Ot L97.122 NON-PRESSURE CHRONIC ULCER OF LEFT THIGH 2019 DEDRA MARQUIS R PAINT MIXER Ot 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 2019 DEDRA MARQUIS R PAINT MIXER Ot B36.9 SUPERFICIAL MYCOSIS, UNSPECIFIED 2019 DEDRA MARQUIS R PAINT MIXER Ot L03.116 CELLULITIS OF LEFT LOWER LIMB 2019 DEDRA MARQUIS R PAINT MIXER Ot L97.122 NON-PRESSURE CHRONIC ULCER OF LEFT THIGH 2019 MARQUIS COLMENARES R PAINT MIXER Ot 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 2019 DEDRA MARQUIS R PAINT MIXER Ot B36.9 SUPERFICIAL MYCOSIS, UNSPECIFIED 2019 DEDRA MARQUIS R PAINT MIXER Ot L03.116 CELLULITIS OF LEFT LOWER LIMB 2019 DEDRA MARQUIS R PAINT MIXER Ot L97.122 NON-PRESSURE CHRONIC ULCER OF LEFT THIGH 2019 MARQUIS COLMENARES R PAINT MIXER Ot 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 2019 MARQUIS COLMENARES R PAINT MIXER Ot B36.9 SUPERFICIAL MYCOSIS, UNSPECIFIED 2019 MARQUIS COLMENARES R PAINT MIXER Ot L03.116 CELLULITIS OF LEFT LOWER LIMB 2019 DEDRA MARQUIS R PAINT MIXER Ot L97.122 NON-PRESSURE CHRONIC ULCER OF LEFT THIGH 2019 MARQUIS COLMENARES R PAINT MIXER Ot 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 2019 MARQUIS COLMENARES R PAINT MIXER Ot B36.9 SUPERFICIAL MYCOSIS, UNSPECIFIED 2019 DEDRA MARQUIS R PAINT MIXER Ot L03.116 CELLULITIS OF LEFT LOWER LIMB 2019 DEDRA MARQUIS R PAINT MIXER Ot L97.121 NON-PRS CHRONIC ULCER OF LEFT THIGH LIMI 2019 DEDRA MARQUIS R PAINT MIXER Ot L97.122 NON-PRESSURE CHRONIC ULCER OF LEFT THIGH 2019 DEDRA MARQUIS R PAINT MIXER Ot 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 2019 MARQUIS COLMENARES R PAINT MIXER Ot B36.9 SUPERFICIAL MYCOSIS, UNSPECIFIED 2019 MARQUIS COLMENARES R PAINT MIXER Ot L03.116 CELLULITIS OF LEFT LOWER LIMB 2019 MARQUIS COLMENARES R PAINT MIXER Ot L97.121 NON-PRS CHRONIC ULCER OF LEFT THIGH LIMI 2019 DEDRA MARQUIS R PAINT MIXER Ot L97.122 NON-PRESSURE CHRONIC ULCER OF LEFT THIGH 2019 DEDRA MARQUIS R PAINT MIXER Ot 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 2019 MARQUIS COLMENARES R PAINT MIXER Ot B36.9 SUPERFICIAL MYCOSIS, UNSPECIFIED 2019 MARQUIS COLMENARES R PAINT MIXER Ot L03.116 CELLULITIS OF LEFT LOWER LIMB 2019 MARQUIS COLMENARES PAINT MIXER Ot L97.121 NON-PRS CHRONIC ULCER OF LEFT THIGH LIMI 2019 MARQUIS COLMENARES R PAINT MIXER Ot L97.122 NON-PRESSURE CHRONIC ULCER OF LEFT THIGH 2019 MARQUIS COLMENARES R PAINT MIXER Ot 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 2019 MARQUIS COLMENARES R PAINT MIXER Ot B36.9 SUPERFICIAL MYCOSIS, UNSPECIFIED 2019 MARQUIS COLMENARES R PAINT MIXER Ot L03.116 CELLULITIS OF LEFT LOWER LIMB 2019 MARQUIS COLMENARES R PAINT MIXER Ot L97.121 NON-PRS CHRONIC ULCER OF LEFT THIGH LIMI 2019 MARQUIS COLMENARES R PAINT MIXER Ot 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 2019 MARQUIS COLMENARES R PAINT MIXER Ot B36.9 SUPERFICIAL MYCOSIS, UNSPECIFIED 2019 MARQUIS COLMENARES R PAINT MIXER Ot L03.116 CELLULITIS OF LEFT LOWER LIMB 2019 MARQUIS COLMENARES R PAINT MIXER Ot L97.121 NON-PRS CHRONIC ULCER OF LEFT THIGH LIMI 2019 MARQUIS COLMENARES R PAINT MIXER Ot 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 2019 MARQUIS COLMENARES R PAINT MIXER Ot B36.9 SUPERFICIAL MYCOSIS, UNSPECIFIED 2019 MARQUIS COLMENARES APRN Ot L03.116 CELLULITIS OF LEFT LOWER LIMB 2019 MARQUIS COLMENARES APRN Ot L97.122 NON-PRESSURE CHRONIC ULCER OF LEFT THIGH 2019 MARQUIS COLMENARES APRN Ot 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 2019 MARQUIS COLMENARES APRN Ot Z51.81 ENCOUNTER FOR THERAPEUTIC DRUG LEVEL MON 2019 MARQUIS COLMENARES APRN Ot Z79.899 OTHER RESIDENT IN DIAGNOSTIC RADIOLOGY (CURRENT) DRUG THERAPY 01/17/2019 KIANNA PERES MD, Ot E11.622 TYPE 2 DIABETES MELLITUS WITH OTHER SKIN 01/17/2019 KIANNA PERES MD, Ot L97.212 NON-PRESSURE CHRONIC ULCER OF RIGHT CALF 01/17/2019 KIANNA PERES MD, Ot 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 RIGHT LEG BELOW KNEE 01/17/2019 KIANNA PERES MD, Ot 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 01/31/2019 KIANNA PERES MD, Ot E11.622 TYPE 2 DIABETES MELLITUS WITH OTHER SKIN 01/31/2019 KIANNA PERES MD, Ot 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 01/31/2019 KIANNA PERES MD, Ot L97.212 NON-PRESSURE CHRONIC ULCER OF RIGHT CALF 01/31/2019 KIANNA PERES MD, Ot 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 RIGHT LEG BELOW KNEE 01/31/2019 KIANNA PERES MD, Ot 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 01/31/2019 KIANNA PERES MD, Ot E11.622 TYPE 2 DIABETES MELLITUS WITH OTHER SKIN 01/31/2019 KIANNA PERES MD, Ot L97.212 NON-PRESSURE CHRONIC ULCER OF RIGHT CALF 01/31/2019 KIANNA PERES MD, Ot 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 RIGHT LEG BELOW KNEE 01/31/2019 KIANNA PERES MD, Ot 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 02/06/2019 KIANNA PERES MD, Ot E11.622 TYPE 2 DIABETES MELLITUS WITH OTHER SKIN 02/06/2019 KIANNA PERES MD, Ot L97.212 NON-PRESSURE CHRONIC ULCER OF RIGHT CALF 02/06/2019 KIANNA PERES MD, Ot 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 RIGHT LEG BELOW KNEE 02/06/2019 KIANNA PERES MD, Ot 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 02/09/2019 KIANNA PERES MD, Ot E11.622 TYPE 2 DIABETES MELLITUS WITH OTHER SKIN 02/09/2019 KIANNA PERES MD, Ot L97.212 NON-PRESSURE CHRONIC ULCER OF RIGHT CALF 02/09/2019 KIANNA PERES MD, Ot 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 RIGHT LEG BELOW KNEE 02/09/2019 KIANNA PERES MD Ot 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 02/13/2019 KIANNA PERES MD, Ot E11.622 TYPE 2 DIABETES MELLITUS WITH OTHER SKIN 02/13/2019 KIANNA PERES MD, Ot L97.212 NON-PRESSURE CHRONIC ULCER OF RIGHT CALF 02/13/2019 KIANNA PERES MD, Ot 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 RIGHT LEG BELOW KNEE 02/13/2019 KIANNA PERES MD, Ot 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 02/14/2019 KIANNA PERES MD, Ot E11.622 TYPE 2 DIABETES MELLITUS WITH OTHER SKIN 02/14/2019 KIANNA PERES MD, Ot L97.212 NON-PRESSURE CHRONIC ULCER OF RIGHT CALF 02/14/2019 KIANNA PERES MD, Ot 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 RIGHT LEG BELOW KNEE 02/14/2019 KIANNA PERES MD Ot 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 02/14/2019 KIANNA PERES MD, Ot E11.622 TYPE 2 DIABETES MELLITUS WITH OTHER SKIN 02/14/2019 KIANNA PERES MD, Ot L97.212 NON-PRESSURE CHRONIC ULCER OF RIGHT CALF 02/14/2019 KIANNA PERES MD Ot 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 RIGHT LEG BELOW KNEE 02/14/2019 KIANNA PERES MD Ot 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 02/24/2019 KIANNA PERES MD, Ot E11.622 TYPE 2 DIABETES MELLITUS WITH OTHER SKIN 02/24/2019 KIANNA PERES MD, Ot L97.212 NON-PRESSURE CHRONIC ULCER OF RIGHT CALF 02/24/2019 KIANNA PERES MD Ot 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 RIGHT LEG BELOW KNEE 02/24/2019 KIANNA PERES MD Ot 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 02/26/2019 KIANNA PERES MD, Ot E11.622 TYPE 2 DIABETES MELLITUS WITH OTHER SKIN 02/26/2019 KIANNA PERES MD, Ot L97.212 NON-PRESSURE CHRONIC ULCER OF RIGHT CALF 02/26/2019 KIANNA PERES MD Ot 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 RIGHT LEG BELOW KNEE 02/26/2019 KIANNA PERES MD Ot 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 03/10/2019 KIANNA PERES MD, Ot E11.622 TYPE 2 DIABETES MELLITUS WITH OTHER SKIN 03/10/2019 KIANNA PERES MD, Ot L97.212 NON-PRESSURE CHRONIC ULCER OF RIGHT CALF 03/10/2019 KIANNA PERES MD Ot 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 RIGHT LEG BELOW KNEE 03/10/2019 KIANNA PERES MD Ot 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 03/10/2019 KIANNA PERES MD, Ot E11.622 TYPE 2 DIABETES MELLITUS WITH OTHER SKIN 03/10/2019 KIANNA PERES MD, Ot L97.212 NON-PRESSURE CHRONIC ULCER OF RIGHT CALF 03/10/2019 KIANNA PERES MD Ot 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 RIGHT LEG BELOW KNEE 03/10/2019 KIANNA PERES MD Ot 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 03/10/2019 KIANNA PERES MD, Ot E11.622 TYPE 2 DIABETES MELLITUS WITH OTHER SKIN 03/10/2019 KIANNA PERES MD, Ot L97.212 NON-PRESSURE CHRONIC ULCER OF RIGHT CALF 03/10/2019 KIANNA PERES MD Ot 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 RIGHT LEG BELOW KNEE 03/10/2019 KIANNA PERES MD Ot 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 08/18/2019 ELIAS DOGALO Ot C18. 9 MALIGNANT NEOPLASM OF COLON, UNSPECIFIED 08/18/2019 GALO GRIFFIN DO Ot Z01.818 ENCOUNTER FOR OTHER PREPROCEDURAL EXAMIN 08/21/2019 ELIAS DOGALO Ot C18. 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 9 TYPE 2 DIABETES MELLITUS WITHOUT COMPLIC 08/29/2019 GRIFFIN DO, GALO D Ot E78. 5 HYPERLIPIDEMIA, UNSPECIFIED 08/29/2019 GRIFFIN DO, GALO D Ot I10 ESSENTIAL (PRIMARY) HYPERTENSION 08/29/2019 GRIFFIN DO, GALO D Ot N40. 0 BENIGN PROSTATIC HYPERPLASIA WITHOUT LOW 08/29/2019 GRIFFIN DO, GALO D Ot N99. 72 ACCIDENTAL PNCTR LAC OF A SYS ORG D 08/29/2019 GRIFFIN DO, GALO D Ot Z79. 4 GROUP HOME (CURRENT) USE OF INSULIN 08/29/2019 GRIFFIN DO, GALO D Ot Z86. 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 9 TYPE 2 DIABETES MELLITUS WITHOUT COMPLIC 08/30/2019 GRIFFIN DO, GALO D Ot E78. 5 HYPERLIPIDEMIA, UNSPECIFIED 08/30/2019 GRIFFIN DO, GALO D Ot I10 ESSENTIAL (PRIMARY) HYPERTENSION 08/30/2019 GRIFFIN DO, GALO D Ot N40. 0 BENIGN PROSTATIC HYPERPLASIA WITHOUT LOW 08/30/2019 GRIFFIN DO, GALO D Ot N99. 72 ACCIDENTAL PNCTR LAC OF A SYS ORG D 08/30/2019 GRIFFIN DO, GALO D Ot Z79. 4 RESIDENT IN DIAGNOSTIC RADIOLOGY (CURRENT) USE OF INSULIN 08/30/2019 GRIFFIN DO, GALO D Ot Z86. 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 9 TYPE 2 DIABETES MELLITUS WITHOUT COMPLIC 09/05/2019 GRIFFIN DO, GALO D Ot E78. 5 HYPERLIPIDEMIA, UNSPECIFIED 09/05/2019 GRIFFIN DO, GALO D Ot I10 ESSENTIAL (PRIMARY) HYPERTENSION 09/05/2019 GRIFFIN DO, GALO D Ot N40. 0 BENIGN PROSTATIC HYPERPLASIA WITHOUT LOW 09/05/2019 GRIFFIN DO, GALO D Ot N99. 72 ACCIDENTAL PNCTR LAC OF A SYS ORG D 09/05/2019 GRIFFIN DO, GALO D Ot Z79. 4 GROUP HOME (CURRENT) USE OF INSULIN 09/05/2019 GRIFFIN DO, GALO D Ot Z86. 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 9 TYPE 2 DIABETES MELLITUS WITHOUT COMPLIC 09/05/2019 GRIFFIN DO, GALO D Ot E78. 5 HYPERLIPIDEMIA, UNSPECIFIED 09/05/2019 GRIFFIN DO, GALO D Ot I10 ESSENTIAL (PRIMARY) HYPERTENSION 09/05/2019 GRIFFIN DO, GALO D Ot N40. 0 BENIGN PROSTATIC HYPERPLASIA WITHOUT LOW 09/05/2019 GRIFFIN DO, GALO D Ot N99. 72 ACCIDENTAL PNCTR LAC OF A SYS ORG D 09/05/2019 GRIFFIN DO, GALO D Ot Z79. 4 GROUP HOME (CURRENT) USE OF INSULIN 09/05/2019 GRIFFIN DO, GALO D Ot Z86. 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 9 TYPE 2 DIABETES MELLITUS WITHOUT COMPLIC 09/05/2019 GRIFFIN DO, GALO D Ot E78. 5 HYPERLIPIDEMIA, UNSPECIFIED 09/05/2019 GRIFFIN DO, GALO D Ot I10 ESSENTIAL (PRIMARY) HYPERTENSION 09/05/2019 GRIFFIN DO, GALO D Ot N40. 0 BENIGN PROSTATIC HYPERPLASIA WITHOUT LOW 09/05/2019 GRIFFIN DO, GALO D Ot N99. 72 ACCIDENTAL PNCTR LAC OF A SYS ORG D 09/05/2019 GRIFFIN DO, GALO D Ot Z79. 4 GROUP HOME (CURRENT) USE OF INSULIN 09/05/2019 GRIFFIN DO, GALO D Ot Z86. 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 9 TYPE 2 DIABETES MELLITUS WITHOUT COMPLIC 09/06/2019 GRIFFIN DO, GALO D Ot E78. 5 HYPERLIPIDEMIA, UNSPECIFIED 09/06/2019 GRIFFIN DO, GALO D Ot I10 ESSENTIAL (PRIMARY) HYPERTENSION 09/06/2019 GRIFFIN DO, GALO D Ot N40. 0 BENIGN PROSTATIC HYPERPLASIA WITHOUT LOW 09/06/2019 GRIFFIN DO, GALO D Ot N99. 72 ACCIDENTAL PNCTR LAC OF A SYS ORG D 09/06/2019 GRIFFIN DO, GALO D Ot Z79. 4 GROUP HOME (CURRENT) USE OF INSULIN 09/06/2019 GRIFFIN DO, GALO D Ot Z86. 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 9 TYPE 2 DIABETES MELLITUS WITHOUT COMPLIC 09/07/2019 GRIFFIN DO, GALO D Ot E78. 5 HYPERLIPIDEMIA, UNSPECIFIED 09/07/2019 GRIFFIN DO, GALO D Ot I10 ESSENTIAL (PRIMARY) HYPERTENSION 09/07/2019 GRIFFIN DO, GALO D Ot N40. 0 BENIGN PROSTATIC HYPERPLASIA WITHOUT LOW 09/07/2019 GRIFFIN DO, GALO D Ot N99. 72 ACCIDENTAL PNCTR LAC OF A SYS ORG D 09/07/2019 GRIFFIN DO, GALO D Ot Z79. 4 GROUP HOME (CURRENT) USE OF INSULIN 09/07/2019 GRIFFIN DO, GALO D Ot Z86. 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 9 TYPE 2 DIABETES MELLITUS WITHOUT COMPLIC 09/08/2019 GRIFFIN DO, GALO D Ot E78. 5 HYPERLIPIDEMIA, UNSPECIFIED 09/08/2019 GRIFFIN DO, GALO D Ot I10 ESSENTIAL (PRIMARY) HYPERTENSION 09/08/2019 GRIFFIN DO, GALO D Ot N40. 0 BENIGN PROSTATIC HYPERPLASIA WITHOUT LOW 09/08/2019 GRIFFIN DO, GALO D Ot N99. 72 ACCIDENTAL PNCTR LAC OF A SYS ORG D 09/08/2019 GRIFFIN DO, GALO D Ot Z79. 4 GROUP HOME (CURRENT) USE OF INSULIN 09/08/2019 GRIFFIN DO, GALO D Ot Z86. 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 9 TYPE 2 DIABETES MELLITUS WITHOUT COMPLIC 09/08/2019 GRIFFIN DO, GALO D Ot E78. 5 HYPERLIPIDEMIA, UNSPECIFIED 09/08/2019 GRIFFIN DO, GALO D Ot I10 ESSENTIAL (PRIMARY) HYPERTENSION 09/08/2019 RGIFFIN DO, GALO D Ot N40. 0 BENIGN PROSTATIC HYPERPLASIA WITHOUT LOW 09/08/2019 GRIFFIN DO, GALO D Ot N99. 72 ACCIDENTAL PNCTR LAC OF A SYS ORG D 09/08/2019 GRIFFIN DO, GALO D Ot Z79. 4 GROUP HOME (CURRENT) USE OF INSULIN 09/08/2019 GRIFFIN DO, GALO D Ot Z86. 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 9 TYPE 2 DIABETES MELLITUS WITHOUT COMPLIC 09/09/2019 GRIFFIN DO, GALO D Ot E78. 5 HYPERLIPIDEMIA, UNSPECIFIED 09/09/2019 GRIFFIN DO, GALO D Ot I10 ESSENTIAL (PRIMARY) HYPERTENSION 09/09/2019 GRIFFIN DO, GALO D Ot N40. 0 BENIGN PROSTATIC HYPERPLASIA WITHOUT LOW 09/09/2019 GRIFFIN DO, GALO D Ot N99. 72 ACCIDENTAL PNCTR LAC OF A SYS ORG D 09/09/2019 GRIFFIN DO, GALO D Ot Z79. 4 RESIDENT IN DIAGNOSTIC RADIOLOGY (CURRENT) USE OF INSULIN 09/09/2019 GRIFFIN DO, GALO D Ot Z86. 73 PRSNL HX OF TIA (TIA), AND CEREB INFRC W 09/09/2019 GRIFFIN DO, GALO D Ot 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 RIGHT LEG BELOW KNEE 09/09/2019 GRIFFIN DO, GALO D Ot 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 09/09/2019 GRIFFIN DO, GALO D Ot C18. 9 MALIGNANT NEOPLASM OF COLON, UNSPECIFIED 09/09/2019 GRIFFIN DO, GALO D Ot N32. 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 65 TYPE 2 DIABETES MELLITUS WITH HYPERGLYCE 09/09/2019 GRIFFIN DO, GALO D Ot E11. 9 TYPE 2 DIABETES MELLITUS WITHOUT COMPLIC 09/09/2019 GRIFFIN DO, GALO D Ot E78. 5 HYPERLIPIDEMIA, UNSPECIFIED 09/09/2019 [facility]. 42 HYPOMAGNESEMIA 09/09/2019 [facility] E86. 0 DEHYDRATION 09/09/2019 [facility] Ot E87. 6 HYPOKALEMIA 09/09/2019 [facility] Ot I10 ESSENTIAL (PRIMARY) HYPERTENSION 09/09/2019 [facility] Ot I35. 0 NONRHEUMATIC AORTIC (VALVE) STENOSIS 09/09/2019 [facility] I95. 9 HYPOTENSION, UNSPECIFIED 09/09/2019 [facility] Ot J18. 9 PNEUMONIA, UNSPECIFIED ORGANISM 09/09/2019 [facility] Ot J91. 8 PLEURAL EFFUSION IN OTHER CONDITIONS CLA 09/09/2019 [facility] Ot J96. 00 ACUTE RESPIRATORY FAILURE, UNSP W HYPOXI 09/09/2019 [facility] Ot K56. 50 INTESTNL ADHESIONS, UNSP TO PARTIAL V 09/09/2019 [facility] Ot K56. 7 ILEUS, UNSPECIFIED 09/09/2019 [facility] Ot K91. 89 OTH POSTPROCEDURAL COMPLICATIONS AND DIS 09/09/2019 [facility] Ot N40. 0 BENIGN PROSTATIC HYPERPLASIA WITHOUT LOW 09/09/2019 [facility] Ot N99. 72 ACCIDENTAL PNCTR LAC OF A SYS ORG D 09/09/2019 [facility] Ot R33. 9 RETENTION OF URINE, UNSPECIFIED 09/09/2019 [facility] Ot Z79. 4 GROUP HOME (CURRENT) USE OF INSULIN 09/09/2019 [facility] Z86. 73 PRSNL HX OF TIA (TIA), AND CEREB INFRC W 09/09/2019 [facility] Ot 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 RIGHT LEG BELOW KNEE 09/09/2019 [facility] 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 10/15/2019 MARQUIS COLMENARES APRN Ot L03.116 CELLULITIS OF LEFT LOWER LIMB 10/15/2019 MARUQIS COLMENARES APRN Ot 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 10/15/2019 DEDRA MARQUIS R PAINT MIXER Ot B36.9 SUPERFICIAL MYCOSIS, UNSPECIFIED 10/15/2019 DEDRA, MARQUIS R PAINT MIXER Ot L03.116 CELLULITIS OF LEFT LOWER LIMB 10/15/2019 DEDRA, MARQUIS R PAINT MIXER Ot L97.122 NON-PRESSURE CHRONIC ULCER OF LEFT THIGH 10/15/2019 DEDRA MARQUIS R PAINT MIXER Ot 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 10/15/2019 DEDRA, MARQUIS R PAINT MIXER Ot B36.9 SUPERFICIAL MYCOSIS, UNSPECIFIED 10/15/2019 DEDRA, MARQUIS R PAINT MIXER Ot L03.116 CELLULITIS OF LEFT LOWER LIMB 10/15/2019 DEDRA, MARQUIS R PAINT MIXER Ot L97.122 NON-PRESSURE CHRONIC ULCER OF LEFT THIGH 10/15/2019 DEDRA MARQUIS R PAINT MIXER Ot 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 10/15/2019 DEDRA MARQUIS R PAINT MIXER Ot B36.9 SUPERFICIAL MYCOSIS, UNSPECIFIED 10/15/2019 DEDRA, MARQUIS R PAINT MIXER Ot L03.116 CELLULITIS OF LEFT LOWER LIMB 10/15/2019 DEDRA, MARQUIS R PAINT MIXER Ot L97.122 NON-PRESSURE CHRONIC ULCER OF LEFT THIGH 10/15/2019 DEDRA MARQUIS R PAINT MIXER Ot 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 10/15/2019 DEDRA MARQUIS R PAINT MIXER Ot B36.9 SUPERFICIAL MYCOSIS, UNSPECIFIED 10/15/2019 DEDRA, MARQUIS R PAINT MIXER Ot L03.116 CELLULITIS OF LEFT LOWER LIMB 10/15/2019 DEDRA MARQUIS R PAINT MIXER Ot L97.122 NON-PRESSURE CHRONIC ULCER OF LEFT THIGH 10/15/2019 DEDRA MARQUIS R PAINT MIXER Ot 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 10/15/2019 DEDRA, MARQUIS R PAINT MIXER Ot B36.9 SUPERFICIAL MYCOSIS, UNSPECIFIED 10/15/2019 DEDRA, MARQUIS R PAINT MIXER Ot L03.116 CELLULITIS OF LEFT LOWER LIMB 10/15/2019 DEDRA, MARQUIS R PAINT MIXER Ot L97.122 NON-PRESSURE CHRONIC ULCER OF LEFT THIGH 10/15/2019 DEDRA MARQUIS R PAINT MIXER Ot 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 10/15/2019 DEDRA, MARQUIS R PAINT MIXER Ot B36.9 SUPERFICIAL MYCOSIS, UNSPECIFIED 10/15/2019 DEDRA MARQUIS R PAINT MIXER Ot L03.116 CELLULITIS OF LEFT LOWER LIMB 10/15/2019 DEDRA MARQUIS R PAINT MIXER Ot L97.121 NON-PRS CHRONIC ULCER OF LEFT THIGH LIMI 10/15/2019 DEDRA, MARQUIS R PAINT MIXER Ot L97.122 NON-PRESSURE CHRONIC ULCER OF LEFT THIGH 10/15/2019 DEDRA MARQUIS R PAINT MIXER Ot 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 10/15/2019 DEDRA MARQUIS R PAINT MIXER Ot B36.9 SUPERFICIAL MYCOSIS, UNSPECIFIED 10/15/2019 DEDRA MARQUIS R PAINT MIXER Ot L03.116 CELLULITIS OF LEFT LOWER LIMB 10/15/2019 DEDRA MARQUIS R PAINT MIXER Ot L97.121 NON-PRS CHRONIC ULCER OF LEFT THIGH LIMI 10/15/2019 DEDRA MARQUIS R PAINT MIXER Ot L97.122 NON-PRESSURE CHRONIC ULCER OF LEFT THIGH 10/15/2019 DEDRA MARQUIS R PAINT MIXER Ot 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 10/15/2019 DEDRA MARQUIS R PAINT MIXER Ot B36.9 SUPERFICIAL MYCOSIS, UNSPECIFIED 10/15/2019 DEDRA MARQUIS R PAINT MIXER Ot L03.116 CELLULITIS OF LEFT LOWER LIMB 10/15/2019 DEDRA MARQUIS R PAINT MIXER Ot L97.121 NON-PRS CHRONIC ULCER OF LEFT THIGH LIMI 10/15/2019 DEDRA MARQUIS R PAINT MIXER Ot L97.122 NON-PRESSURE CHRONIC ULCER OF LEFT THIGH 10/15/2019 DEDRA MARQUIS R PAINT MIXER Ot 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 10/15/2019 DEDRA MARQUIS R PAINT MIXER Ot B36.9 SUPERFICIAL MYCOSIS, UNSPECIFIED 10/15/2019 DEDRA MARQUIS R PAINT MIXER Ot L03.116 CELLULITIS OF LEFT LOWER LIMB 10/15/2019 DEDRA MARQUIS R PAINT MIXER Ot L97.121 NON-PRS CHRONIC ULCER OF LEFT THIGH LIMI 10/15/2019 DEDRA MARQUIS R PAINT MIXER Ot 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 10/15/2019 DEDRA MARQUIS R PAINT MIXER Ot B36.9 SUPERFICIAL MYCOSIS, UNSPECIFIED 10/15/2019 DEDRA, MARQUIS R PAINT MIXER Ot L03.116 CELLULITIS OF LEFT LOWER LIMB 10/15/2019 DEDRA MARQUIS R PAINT MIXER Ot L97.121 NON-PRS CHRONIC ULCER OF LEFT THIGH LIMI 10/15/2019 MARQUIS COLMENARES PAINT MIXER Ot 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 10/15/2019 MARQUIS COLMENARES PAINT MIXER Ot B36.9 SUPERFICIAL MYCOSIS, UNSPECIFIED 10/15/2019 MARQUIS COLMENARES R PAINT MIXER Ot L03.116 CELLULITIS OF LEFT LOWER LIMB 10/15/2019 MARQUIS COLMENARES PAINT MIXER Ot L97.122 NON-PRESSURE CHRONIC ULCER OF LEFT THIGH 10/15/2019 MARQUIS COLMENARES PAINT MIXER Ot 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 10/15/2019 MARQUIS COLMENARES PAINT MIXER Ot Z51.81 ENCOUNTER FOR THERAPEUTIC DRUG LEVEL MON 10/15/2019 MARQUIS COLMENARES PAINT MIXER Ot Z79.899 OTHER GROUP HOME (CURRENT) DRUG THERAPY 10/15/2019 KIANNA PERES MD, Ot E11.622 TYPE 2 DIABETES MELLITUS WITH OTHER SKIN 10/15/2019 KIANNA PERES MD, Ot 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 10/15/2019 KIANNA PERES MD, Ot L97.212 NON-PRESSURE CHRONIC ULCER OF RIGHT CALF 10/15/2019 KIANNA PERES MD, Ot 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 RIGHT LEG BELOW KNEE 10/15/2019 KIANNA PERES MD, Ot 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 10/15/2019 KIANNA PERES MD, Ot E11.622 TYPE 2 DIABETES MELLITUS WITH OTHER SKIN 10/15/2019 KIANNA PERES MD Ot L97.212 NON-PRESSURE CHRONIC ULCER OF RIGHT CALF 10/15/2019 KIANNA PERES MD Ot 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 RIGHT LEG BELOW KNEE 10/15/2019 KIANNA PERES MD Ot 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 10/15/2019 KIANNA PERES MD, Ot E11.622 TYPE 2 DIABETES MELLITUS WITH OTHER SKIN 10/15/2019 KIANNA PERES MD, Ot L97.212 NON-PRESSURE CHRONIC ULCER OF RIGHT CALF 10/15/2019 KIANNA PERES MD Ot 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 RIGHT LEG BELOW KNEE 10/15/2019 KIANNA PERES MD Ot 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 10/15/2019 KIANNA PERES MD Ot E11.622 TYPE 2 DIABETES MELLITUS WITH OTHER SKIN 10/15/2019 KIANNA PERES MD, Ot L97.212 NON-PRESSURE CHRONIC ULCER OF RIGHT CALF 10/15/2019 KIANNA PERES MD, Ot 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 RIGHT LEG BELOW KNEE 10/15/2019 KIANNA PERES MD, Ot 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 10/15/2019 KIANNA PERES MD, Ot E11.622 TYPE 2 DIABETES MELLITUS WITH OTHER SKIN 10/15/2019 KIANNA PERES MD, Ot L97.212 NON-PRESSURE CHRONIC ULCER OF RIGHT CALF 10/15/2019 KIANNA PERES MD, Ot 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 RIGHT LEG BELOW KNEE 10/15/2019 KIANNA PERES MD, Ot 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 10/15/2019 KIANNA PERES MD, Ot E11.622 TYPE 2 DIABETES MELLITUS WITH OTHER SKIN 10/15/2019 KIANNA PERES MD, Ot L97.212 NON-PRESSURE CHRONIC ULCER OF RIGHT CALF 10/15/2019 KIANNA PERES MD, Ot 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 RIGHT LEG BELOW KNEE 10/15/2019 KIANNA PERES MD Ot 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 10/15/2019 GALO GRIFFIN DO Ot C18. 9 MALIGNANT NEOPLASM OF COLON, UNSPECIFIED 10/15/2019 GALO GRIFFIN DO Ot N32. 89 OTHER SPECIFIED DISORDERS OF BLADDER 10/15/2019 SCOTT LEI MD Ot C18.7 MALIGNANT NEOPLASM OF SIGMOID COLON 10/15/2019 SCOTT LEI MD Ot C77.2 SECONDARY AND UNSP MALIGNANT NEOPLASM OF 10/17/2019 MARQUIS COLMENARES PAINT MIXER Ot L03.116 CELLULITIS OF LEFT LOWER LIMB 10/17/2019 MARQUIS COLMENARES APRN Ot 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 10/17/2019 MARQUIS COLMENARES APRN Ot B36.9 SUPERFICIAL MYCOSIS, UNSPECIFIED 10/17/2019 MARQUIS COLMENARES APRN Ot L03.116 CELLULITIS OF LEFT LOWER LIMB 10/17/2019 MARQUIS COLMENARES APRN Ot L97.122 NON-PRESSURE CHRONIC ULCER OF LEFT THIGH 10/17/2019 MARQUIS COLMENARES APRN Ot 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 10/17/2019 DEDRA, MARQUIS R PAINT MIXER Ot B36.9 SUPERFICIAL MYCOSIS, UNSPECIFIED 10/17/2019 DEDRA, MARQUIS R PAINT MIXER Ot L03.116 CELLULITIS OF LEFT LOWER LIMB 10/17/2019 DEDRA MARQUIS R PAINT MIXER Ot L97.122 NON-PRESSURE CHRONIC ULCER OF LEFT THIGH 10/17/2019 DEDRA MARQUIS R PAINT MIXER Ot 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 10/17/2019 DEDRA MARQUIS R PAINT MIXER Ot B36.9 SUPERFICIAL MYCOSIS, UNSPECIFIED 10/17/2019 DEDRA, MARQUIS R PAINT MIXER Ot L03.116 CELLULITIS OF LEFT LOWER LIMB 10/17/2019 DEDRA, MARQUIS R PAINT MIXER Ot L97.122 NON-PRESSURE CHRONIC ULCER OF LEFT THIGH 10/17/2019 DEDRA MARQUIS R PAINT MIXER Ot 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 10/17/2019 DEDRA MARQUIS R PAINT MIXER Ot B36.9 SUPERFICIAL MYCOSIS, UNSPECIFIED 10/17/2019 DEDRA MARQUIS R PAINT MIXER Ot L03.116 CELLULITIS OF LEFT LOWER LIMB 10/17/2019 DEDRA MARQUIS R PAINT MIXER Ot L97.122 NON-PRESSURE CHRONIC ULCER OF LEFT THIGH 10/17/2019 DEDRA MARQUIS R PAINT MIXER Ot 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 10/17/2019 DEDRA MARQUIS R PAINT MIXER Ot B36.9 SUPERFICIAL MYCOSIS, UNSPECIFIED 10/17/2019 DEDRA, MARQUIS R PAINT MIXER Ot L03.116 CELLULITIS OF LEFT LOWER LIMB 10/17/2019 DEDRA MARQUIS R PAINT MIXER Ot L97.122 NON-PRESSURE CHRONIC ULCER OF LEFT THIGH 10/17/2019 DEDRA MARQUIS R PAINT MIXER Ot 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 10/17/2019 DEDRA MARQUIS R PAINT MIXER Ot B36.9 SUPERFICIAL MYCOSIS, UNSPECIFIED 10/17/2019 DEDRA, MARQUIS R PAINT MIXER Ot L03.116 CELLULITIS OF LEFT LOWER LIMB 10/17/2019 DEDRA MARQUIS R PAINT MIXER Ot L97.121 NON-PRS CHRONIC ULCER OF LEFT THIGH LIMI 10/17/2019 DEDRA MARQUIS R PAINT MIXER Ot L97.122 NON-PRESSURE CHRONIC ULCER OF LEFT THIGH 10/17/2019 DEDRA MARQUIS R PAINT MIXER Ot 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 10/17/2019 DEDRA MARQUIS R PAINT MIXER Ot B36.9 SUPERFICIAL MYCOSIS, UNSPECIFIED 10/17/2019 DEDRA MARQUIS R PAINT MIXER Ot L03.116 CELLULITIS OF LEFT LOWER LIMB 10/17/2019 DEDRA MARQUIS R PAINT MIXER Ot L97.121 NON-PRS CHRONIC ULCER OF LEFT THIGH LIMI 10/17/2019 DEDRA MARQUIS R PAINT MIXER Ot L97.122 NON-PRESSURE CHRONIC ULCER OF LEFT THIGH 10/17/2019 DEDRA MARQUIS R PAINT MIXER Ot 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 10/17/2019 DEDRA MARQUIS R PAINT MIXER Ot B36.9 SUPERFICIAL MYCOSIS, UNSPECIFIED 10/17/2019 DEDRA MARQUIS R PAINT MIXER Ot L03.116 CELLULITIS OF LEFT LOWER LIMB 10/17/2019 DEDRA MARQUIS R PAINT MIXER Ot L97.121 NON-PRS CHRONIC ULCER OF LEFT THIGH LIMI 10/17/2019 DEDRA MARQUIS R PAINT MIXER Ot L97.122 NON-PRESSURE CHRONIC ULCER OF LEFT THIGH 10/17/2019 DEDRA MARQUIS R PAINT MIXER Ot 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 10/17/2019 DEDRA MARQUIS R PAINT MIXER Ot B36.9 SUPERFICIAL MYCOSIS, UNSPECIFIED 10/17/2019 DEDRA MARQUIS R PAINT MIXER Ot L03.116 CELLULITIS OF LEFT LOWER LIMB 10/17/2019 DEDRA MARQUIS R PAINT MIXER Ot L97.121 NON-PRS CHRONIC ULCER OF LEFT THIGH LIMI 10/17/2019 DEDRA MARQUIS R PAINT MIXER Ot 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 10/17/2019 DEDRA MARQUIS R PAINT MIXER Ot B36.9 SUPERFICIAL MYCOSIS, UNSPECIFIED 10/17/2019 DEDRA MARQUIS R PAINT MIXER Ot L03.116 CELLULITIS OF LEFT LOWER LIMB 10/17/2019 DEDRA MARQUIS R PAINT MIXER Ot L97.121 NON-PRS CHRONIC ULCER OF LEFT THIGH LIMI 10/17/2019 DEDRA MARQUIS R PAINT MIXER Ot 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 10/17/2019 DEDRA MARQUIS R PAINT MIXER Ot B36.9 SUPERFICIAL MYCOSIS, UNSPECIFIED 10/17/2019 DEDRA MARQUIS R PAINT MIXER Ot L03.116 CELLULITIS OF LEFT LOWER LIMB 10/17/2019 DEDRA MARQUIS R PAINT MIXER Ot L97.122 NON-PRESSURE CHRONIC ULCER OF LEFT THIGH 10/17/2019 MARQUIS COLMENARES APRN Ot 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 10/17/2019 MARQUIS COLMENARES PAINT MIXER Ot Z51.81 ENCOUNTER FOR THERAPEUTIC DRUG LEVEL MON 10/17/2019 MARQUIS COLMENARES APRN Ot Z79.899 OTHER RESIDENT IN DIAGNOSTIC RADIOLOGY (CURRENT) DRUG THERAPY 10/17/2019 KIANNA PERES MD, Ot E11.622 TYPE 2 DIABETES MELLITUS WITH OTHER SKIN 10/17/2019 KIANNA PERES MD, Ot 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 10/17/2019 KIANNA PERES MD, Ot L97.212 NON-PRESSURE CHRONIC ULCER OF RIGHT CALF 10/17/2019 KIANNA PERES MD, Ot 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 RIGHT LEG BELOW KNEE 10/17/2019 KIANNA PERES MD, Ot 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 10/17/2019 KIANNA PERES MD, Ot E11.622 TYPE 2 DIABETES MELLITUS WITH OTHER SKIN 10/17/2019 KIANNA PERES MD, Ot L97.212 NON-PRESSURE CHRONIC ULCER OF RIGHT CALF 10/17/2019 KIANNA PERES MD Ot 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 RIGHT LEG BELOW KNEE 10/17/2019 KIANNA PERES MD Ot 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 10/17/2019 KIANNA PERES MD, Ot E11.622 TYPE 2 DIABETES MELLITUS WITH OTHER SKIN 10/17/2019 KIANNA PERES MD Ot L97.212 NON-PRESSURE CHRONIC ULCER OF RIGHT CALF 10/17/2019 KIANNA PERES MD Ot 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 RIGHT LEG BELOW KNEE 10/17/2019 KIANNA PERES MD Ot 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 10/17/2019 KIANNA PERES MD, Ot E11.622 TYPE 2 DIABETES MELLITUS WITH OTHER SKIN 10/17/2019 KIANNA PERES MD Ot L97.212 NON-PRESSURE CHRONIC ULCER OF RIGHT CALF 10/17/2019 KIANNA PERES MD Ot 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 RIGHT LEG BELOW KNEE 10/17/2019 KIANNA PERES MD Ot 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 10/17/2019 KIANNA PERES MD, Ot E11.622 TYPE 2 DIABETES MELLITUS WITH OTHER SKIN 10/17/2019 KIANNA PERES MD Ot L97.212 NON-PRESSURE CHRONIC ULCER OF RIGHT CALF 10/17/2019 KIANNA PERES MD Ot 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 RIGHT LEG BELOW KNEE 10/17/2019 KIANNA PERES MD Ot 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 10/17/2019 KIANNA PERES MD Ot E11.622 TYPE 2 DIABETES MELLITUS WITH OTHER SKIN 10/17/2019 KIANNA PERES MD, Ot L97.212 NON-PRESSURE CHRONIC ULCER OF RIGHT CALF 10/17/2019 KIANNA PERES MD, Ot 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 RIGHT LEG BELOW KNEE 10/17/2019 KIANNA PERES MD, Ot 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 10/17/2019 GALO GRIFFIN DO Ot C18. 9 MALIGNANT NEOPLASM OF COLON, UNSPECIFIED 10/17/2019 GALO GRIFFIN DO Ot N32. 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 MARQUIS COLMENARES APRN Ot Z51.81 ENCOUNTER FOR THERAPEUTIC DRUG LEVEL MON 11/11/2019 MARQUIS COLMENARES APRN Ot Z79.899 OTHER RESIDENT IN DIAGNOSTIC RADIOLOGY (CURRENT) DRUG THERAPY 11/11/2019 GALO GRIFFIN DO Ot Z01.818 ENCOUNTER FOR OTHER PREPROCEDURAL EXAMIN Procedures Code Description Performed By Per formed On [id number] EX CISION OF LEFT LOWER LEG SKIN, EXTERNA 11/07/2017 [id number] EX CISION OF SIGMOID COLON, OPEN APPROACH 08/28/2019 [id number] IN SERTION OF OTHER DEVICE INTO URETER, O 08/28/2019 [id number] RE PAIR LEFT URETER, OPEN APPROACH 08/28/2019 [id number] RE LEASE SMALL INTESTINE, OPEN APPROACH 09/05/[id number] DILLARD OF PERITONEAL CAVITY, OPEN APPR 09/05/2019 [id number] RE SPIRATORY VENTILATION, 24- 96 CONSECUTI 09/05/2019 Results Test Result Range TSH - 10/30/17 11:15 TSH 0.90 mIU/L 0.40-4.50 Bacterial blood culture - 11/06/17 11:00 Bacterial blood culture NG NRG Complete blood count (CBC) with automate d white blood cell (WBC) differential - 11/06/17 11:08 Blood leukocytes automated count (number/volume) 13.5 10*3/uL 4.3-11.0 Blood erythrocytes automated count (number/volume) 4.30 10*6/uL 4.35-5.85 Venous blood hemoglobin measurement (mass/volume) 11.3 g/dL 13.3-17.7 Blood hematocrit (volume fraction) 35 % 40-54 Automated erythrocyte mean corpuscular volume 82 [ foz_us] 80-99 Automated erythrocyte mean corpuscular h emoglobin (mass per erythrocyte) 26 pg 25-34 Automated erythrocyte mean corpuscular h emoglobin concentration measurement (mass/volume) 32 g/dL 32-36 Automated erythrocyte distribution width ratio 15. 2 % 10.0- 14.5 Automated blood platelet count (count/volume) 438 10*3/uL 130-400 Automated blood platelet mean volume measurement 8.3 [foz_us] 7.4-10.4 Automated blood neutrophils/100 leukocytes 82 % 42-75 Automated blood lymphocytes/100 leukocytes 11 % 12-44 Blood monocytes/100 leukocytes 7 % 0-12 Automated blood eosinophils/100 leukocytes 1 % 0-10 Automated blood basophils/100 leukocytes 0 % 0-10 Blood neutrophils automated count (number/volume) 11.0 10*3 1.8-7.8 Blood lymphocytes automated count (number/volume) 1.5 10*3 1.0-4.0 Blood monocytes automated count (number/volume) 0. 9 10*3 0.0-1.0 Automated eosinophil count 0.1 10*3/uL 0 .0-0.3 Automated blood basophil count (count/volume) 0.0 10*3/uL 0.0-0.1 Blood lactic acid measurement (moles/vol ume) - 11/06/17 11:08 Blood lactic acid measurement (moles/volume) 1.20 mmol/L 0.50-2.00 PT panel in platelet poor plasma by coag ulation assay - 11/06/17 11:08 Prothrombin time (PT) in platelet poor plasma by coagu lation assay 13.2 s 12.2-14.7 INR in platelet poor plasma or blood by coagulation as say 1.0 0.8-1.4 Activated partial thromboplastin time (a PTT) in platelet poor plasma bycoagulation assay - 11/06/17 11:08 Activated partial thromboplastin time (a PTT) in platelet poor plasma bycoagulation assay 37 s 24-35 Comprehensive metabolic panel - 11/06/17 11:08 Serum or plasma sodium measurement (moles/volume) 133 mmol/L 135-145 Serum or plasma potassium measurement (moles/volume) 4.5 mmol/L 3.6-5.0 Serum or plasma chloride measurement (moles/volume) 97 mmol/L 98-107 Carbon dioxide 26 mmol/L 21-32 Serum or plasma anion gap determination (moles/volume) 10 mmol/L 5-14 Serum or plasma urea nitrogen measurement (mass/volume ) 12 mg/dL 7-18 Serum or plasma creatinine measurement (mass/volume) 0.79 mg/dL 0.60-1.30 Serum or plasma urea nitrogen/creatinine mass ratio 15 NRG Serum or plasma creatinine measurement w ith calculation of estimated glomerular filtration rate > NRG Serum or plasma glucose measurement (mass/volume) 147 mg/dL 70-105 Serum or plasma calcium measurement (mass/volume) 10.2 mg/dL 8.5-10.1 Serum or plasma total bilirubin measurement (mass/volu me) 0.3 mg/dL 0.1-1.0 Serum or plasma alkaline phosphatase isela surement (enzymatic activity/volume) 75 U/L 40-136 Serum or plasma aspartate aminotransfera se measurement (enzymatic activity/volume) 20 U/L 5-34 Serum or plasma alanine aminotransferase measurement (enzymatic activity/volume) 14 U/L 0-55 Serum or plasma protein measurement (mass/volume) 7.8 g/dL 6.4-8.2 Serum or plasma albumin measurement (mass/volume) 4.1 g/dL 3.2-4.5 Bacterial blood culture - 11/06/17 11:33 Bacterial blood culture NG NRG Capillary blood glucose measurement by g lucometer (mass/volume) - 11/06/17 20:20 Capillary blood glucose measurement by glucometer (mas s/volume) 129 mg/dL 70-110 Capillary blood glucose measurement by g lucometer (mass/volume) - 11/07/17 05:23 Capillary blood glucose measurement by glucometer (mas s/volume) 89 mg/dL 70-110 Complete blood count (CBC) with automate d white blood cell (WBC) differential - 11/07/17 05:50 Blood leukocytes automated count (number/volume) 6.1 10*3/uL 4.3-11.0 Blood erythrocytes automated count (number/volume) 3.91 10*6/uL 4.35-5.85 Venous blood hemoglobin measurement (mass/volume) 10.1 g/dL 13.3-17.7 Blood hematocrit (volume fraction) 33 % 40-54 Automated erythrocyte mean corpuscular volume 83 [ foz_us] 80-99 Automated erythrocyte mean corpuscular h emoglobin (mass per erythrocyte) 26 pg 25-34 Automated erythrocyte mean corpuscular h emoglobin concentration measurement (mass/volume) 31 g/dL 32-36 Automated erythrocyte distribution width ratio 15. 4 % 10.0- 14.5 Automated blood platelet count (count/volume) 368 10*3/uL 130-400 Automated blood platelet mean volume measurement 8.3 [foz_us] 7.4-10.4 Automated blood neutrophils/100 leukocytes 59 % 42-75 Automated blood lymphocytes/100 leukocytes 26 % 12-44 Blood monocytes/100 leukocytes 12 % 0-12 Automated blood eosinophils/100 leukocytes 3 % 0-10 Automated blood basophils/100 leukocytes 0 % 0-10 Blood neutrophils automated count (number/volume) 3.6 10*3 1.8-7.8 Blood lymphocytes automated count (number/volume) 1.6 10*3 1.0-4.0 Blood monocytes automated count (number/volume) 0. 7 10*3 0.0-1.0 Automated eosinophil count 0.2 10*3/uL 0 .0-0.3 Automated blood basophil count (count/volume) 0.0 10*3/uL 0.0-0.1 Comprehensive metabolic panel - 11/07/17 05:50 Serum or plasma sodium measurement (moles/volume) 139 mmol/L 135-145 Serum or plasma potassium measurement (moles/volume) 4.1 mmol/L 3.6-5.0 Serum or plasma chloride measurement (moles/volume) 105 mmol/L 98-107 Carbon dioxide 26 mmol/L 21-32 Serum or plasma anion gap determination (moles/volume) 8 mmol/L 5-14 Serum or plasma urea nitrogen measurement (mass/volume ) 10 mg/dL 7-18 Serum or plasma creatinine measurement (mass/volume) 0.71 mg/dL 0.60-1.30 Serum or plasma urea nitrogen/creatinine mass ratio 14 NRG Serum or plasma creatinine measurement w ith calculation of estimated glomerular filtration rate > NRG Serum or plasma glucose measurement (mass/volume) 99 mg/dL 70-105 Serum or plasma calcium measurement (mass/volume) 8.7 mg/dL 8.5-10.1 Serum or plasma total bilirubin measurement (mass/volu me) 0.3 mg/dL 0.1-1.0 Serum or plasma alkaline phosphatase isela surement (enzymatic activity/volume) 62 U/L 40-136 Serum or plasma aspartate aminotransfera se measurement (enzymatic activity/volume) 18 U/L 5-34 Serum or plasma alanine aminotransferase measurement (enzymatic activity/volume) 14 U/L 0-55 Serum or plasma protein measurement (mass/volume) 6.7 g/dL 6.4-8.2 Serum or plasma albumin measurement (mass/volume) 3.5 g/dL 3.2-4.5 Capillary blood glucose measurement by g lucometer (mass/volume) - 11/07/17 10:11 Capillary blood glucose measurement by glucometer (mas s/volume) 224 mg/dL 70-110 Capillary blood glucose measurement by g lucometer (mass/volume) - 11/07/17 14:43 Capillary blood glucose measurement by glucometer (mas s/volume) 316 mg/dL 70-110 Capillary blood glucose measurement by g lucometer (mass/volume) - 11/07/17 20:14 Capillary blood glucose measurement by glucometer (mas s/volume) 238 mg/dL 70-110 Capillary blood glucose measurement by g lucometer (mass/volume) - 11/08/17 05:25 Capillary blood glucose measurement by glucometer (mas s/volume) 156 mg/dL 70-110 Complete blood count (CBC) with automate d white blood cell (WBC) differential - 11/08/17 06:45 Blood leukocytes automated count (number/volume) 5.7 10*3/uL 4.3-11.0 Blood erythrocytes automated count (number/volume) 3.97 10*6/uL 4.35-5.85 Venous blood hemoglobin measurement (mass/volume) 10.3 g/dL 13.3-17.7 Blood hematocrit (volume fraction) 32 % 40-54 Automated erythrocyte mean corpuscular volume 81 [ foz_us] 80-99 Automated erythrocyte mean corpuscular h emoglobin (mass per erythrocyte) 26 pg 25-34 Automated erythrocyte mean corpuscular h emoglobin concentration measurement (mass/volume) 32 g/dL 32-36 Automated erythrocyte distribution width ratio 15. 3 % 10.0- 14.5 Automated blood platelet count (count/volume) 365 10*3/uL 130-400 Automated blood platelet mean volume measurement 7.9 [foz_us] 7.4-10.4 Automated blood neutrophils/100 leukocytes 60 % 42-75 Automated blood lymphocytes/100 leukocytes 25 % 12-44 Blood monocytes/100 leukocytes 11 % 0-12 Automated blood eosinophils/100 leukocytes 4 % 0-10 Automated blood basophils/100 leukocytes 0 % 0-10 Blood neutrophils automated count (number/volume) 3.4 10*3 1.8-7.8 Blood lymphocytes automated count (number/volume) 1.4 10*3 1.0-4.0 Blood monocytes automated count (number/volume) 0. 6 10*3 0.0-1.0 Automated eosinophil count 0.3 10*3/uL 0 .0-0.3 Automated blood basophil count (count/volume) 0.0 10*3/uL 0.0-0.1 Whole blood basic metabolic panel - 10/19 10/07 06:45 Serum or plasma sodium measurement (moles/volume) 136 mmol/L 135-145 Serum or plasma potassium measurement (moles/volume) 4.3 mmol/L 3.6-5.0 Serum or plasma chloride measurement (moles/volume) 105 mmol/L 98-107 Carbon dioxide 26 mmol/L 21-32 Serum or plasma anion gap determination (moles/volume) 5 mmol/L 5-14 Serum or plasma urea nitrogen measurement (mass/volume ) 10 mg/dL 7-18 Serum or plasma creatinine measurement (mass/volume) 0.69 mg/dL 0.60-1.30 Serum or plasma urea nitrogen/creatinine mass ratio 14 NRG Serum or plasma creatinine measurement w ith calculation of estimated glomerular filtration rate > NRG Serum or plasma glucose measurement (mass/volume) 163 mg/dL 70-105 Serum or plasma calcium measurement (mass/volume) 8.8 mg/dL 8.5-10.1 Magnesium - 11/08/17 06:45 Magnesium 2.1 mg/dL 1.8-2.4 Serum or plasma C reactive protein measu rement (mass/volume) - 11/08/17 06:45 Serum or plasma C reactive protein measurement (mass/v olume) 1.71 mg/dL 0.00-0.50 Capillary blood glucose measurement by g lucometer (mass/volume) - 11/08/17 10:40 Capillary blood glucose measurement by glucometer (mas s/volume) 274 mg/dL 70-110 Capillary blood glucose measurement by g lucometer (mass/volume) - 11/08/17 14:55 Capillary blood glucose measurement by glucometer (mas s/volume) 253 mg/dL 70-110 Bacteria identification in isolate by an aerobe culture - 11/08/17 17:30 QUANTITY OF GROWTH Moderate Growth NRG Bacteria identification in isolate by anaerobe culture [id number] NR Gram stain microscopy - 11/08/17 17:30 GRAM STAIN RESULT OBSERVED NRG Bacteria identification in wound by cult ure - 11/08/17 17:30 Bacteria identification in wound by culture SEE RE PORT NRG FREE TEXT EXTERNAL SEE FUNGUS CULTURE REPORT NRG QUANTITY OF GROWTH . [facility] FREE TEXT ENTRY 2 ON THIS ORGAISM. [facility] Bacterial susceptibility panel - 8 17:30 Gentamicin susceptibility test by minimum inhibitory c oncentration <= NRG Trimethoprim/sulfamethoxazole susceptibi lity test by minimum inhibitoryconcentration S NRG Ampicillin susceptibility test by minimum inhibitory c oncentration <= NRG Tobramycin susceptibility test by minimum inhibitory c oncentration <= NRG Cefazolin susceptibility test by minimum inhibitory co ncentration <= NRG Ceftriaxone susceptibility test by minimum inhibitory concentration <= NRG Ampicillin/sulbactam susceptibility test by minimum inhibitory concentration S NRG Piperacillin/tazobactam susceptibility t est by minimum inhibitory concentration S NRG Ciprofloxacin susceptibility test by minimum inhibitor y concentration <= NRG Meropenem susceptibility test by minimum inhibitory co ncentration <= NRG Aztreonam susceptibility test by minimum inhibitory co ncentration <= NRG AFB CULT T STAIN TISSUE/FLUID - 11/08/17 17:30 AFB CULT T STAIN TISSUE/FLUID 4 weeks requir ed for a preliminary negative culture report. [facility] Bacterial susceptibility panel - 8 17:30 Gentamicin susceptibility test by minimum inhibitory c oncentration S NRG Erythromycin susceptibility test by minimum inhibitory concentration <= NRG Vancomycin susceptibility test by minimum inhibitory c oncentration 2 NRG Ampicillin susceptibility test by minimum inhibitory c oncentration <= NRG Linezolid susceptibility test by minimum inhibitory co ncentration 2 NRG Fungus culture - 11/08/17 17:30 QUANTITY OF GROWTH . NRG Fungus culture SEE REPORT NRG Capillary blood glucose measurement by g lucometer (mass/volume) - 11/08/17 20:29 Capillary blood glucose measurement by glucometer (mas s/volume) 221 mg/dL 70-110 Complete blood count (CBC) with automate d white blood cell (WBC) differential - 11/09/17 05:10 Blood leukocytes automated count (number/volume) 6.0 10*3/uL 4.3-11.0 Blood erythrocytes automated count (number/volume) 3.88 10*6/uL 4.35-5.85 Venous blood hemoglobin measurement (mass/volume) 10.0 g/dL 13.3-17.7 Blood hematocrit (volume fraction) 32 % 40-54 Automated erythrocyte mean corpuscular volume 81 [ foz_us] 80-99 Automated erythrocyte mean corpuscular h emoglobin (mass per erythrocyte) 26 pg 25-34 Automated erythrocyte mean corpuscular h emoglobin concentration measurement (mass/volume) 32 g/dL 32-36 Automated erythrocyte distribution width ratio 15. 1 % 10.0- 14.5 Automated blood platelet count (count/volume) 364 10*3/uL 130-400 Automated blood platelet mean volume measurement 8.1 [foz_us] 7.4-10.4 Automated blood neutrophils/100 leukocytes 58 % 42-75 Automated blood lymphocytes/100 leukocytes 25 % 12-44 Blood monocytes/100 leukocytes 12 % 0-12 Automated blood eosinophils/100 leukocytes 4 % 0-10 Automated blood basophils/100 leukocytes 1 % 0-10 Blood neutrophils automated count (number/volume) 3.5 10*3 1.8-7.8 Blood lymphocytes automated count (number/volume) 1.5 10*3 1.0-4.0 Blood monocytes automated count (number/volume) 0. 7 10*3 0.0-1.0 Automated eosinophil count 0.3 10*3/uL 0 .0-0.3 Automated blood basophil count (count/volume) 0.0 10*3/uL 0.0-0.1 Whole blood basic metabolic panel - 10/19 11/04 05:10 Serum or plasma sodium measurement (moles/volume) 139 mmol/L 135-145 Serum or plasma potassium measurement (moles/volume) 4.1 mmol/L 3.6-5.0 Serum or plasma chloride measurement (moles/volume) 107 mmol/L 98-107 Carbon dioxide 26 mmol/L 21-32 Serum or plasma anion gap determination (moles/volume) 6 mmol/L 5-14 Serum or plasma urea nitrogen measurement (mass/volume ) 7 mg/dL 7-18 Serum or plasma creatinine measurement (mass/volume) 0.67 mg/dL 0.60-1.30 Serum or plasma urea nitrogen/creatinine mass ratio 10 NRG Serum or plasma creatinine measurement w ith calculation of estimated glomerular filtration rate > NRG Serum or plasma glucose measurement (mass/volume) 126 mg/dL 70-105 Serum or plasma calcium measurement (mass/volume) 8.6 mg/dL 8.5-10.1 Magnesium - 11/09/17 05:10 Magnesium 2.2 mg/dL 1.8-2.4 Serum or plasma C reactive protein measu rement (mass/volume) - 11/09/17 05:10 Serum or plasma C reactive protein measurement (mass/v olume) 0.92 mg/dL 0.00-0.50 Capillary blood glucose measurement by g lucometer (mass/volume) - 11/09/17 05:34 Capillary blood glucose measurement by glucometer (mas s/volume) 130 mg/dL 70-110 Capillary blood glucose measurement by g lucometer (mass/volume) - 11/09/17 09:44 Capillary blood glucose measurement by glucometer (mas s/volume) 286 mg/dL 70-110 Capillary blood glucose measurement by g lucometer (mass/volume) - 11/09/17 14:32 Capillary blood glucose measurement by glucometer (mas s/volume) 291 mg/dL 70-110 Bacteria identification in isolate by an aerobe culture - 11/22/17 14:38 Bacteria identification in isolate by anaerobe culture NG [facility] Gram stain microscopy - 11/22/17 14:38 GRAM STAIN RESULT NO BACTERIA NRG Bacteria identification in wound by cult ure - 11/22/17 14:38 Bacteria identification in wound by culture [id number] NRG FREE TEXT EXTERNAL FROM [employer] ONLY NRG QUANTITY OF GROWTH Isolated NRG FREE TEXT ENTRY 2 SENSITIVITIES REPORTED AT 1240, 4-18 [facility] Bacterial susceptibility panel - 8 14:38 Gentamicin susceptibility test by minimum inhibitory c oncentration S NRG Erythromycin susceptibility test by minimum inhibitory concentration <= NRG Vancomycin susceptibility test by minimum inhibitory c oncentration 2 NRG Ampicillin susceptibility test by minimum inhibitory c oncentration <= NRG Linezolid susceptibility test by minimum inhibitory co ncentration 2 [facility] Bacterial susceptibility panel - 8 14:38 Oxacillin susceptibility test by minimum inhibitory co ncentration >= NRG Gentamicin susceptibility test by minimum inhibitory c oncentration <= NRG Clindamycin susceptibility test by minimum inhibitory concentration >= NRG Erythromycin susceptibility test by minimum inhibitory concentration >= NRG Trimethoprim/sulfamethoxazole susceptibi lity test by minimum inhibitoryconcentration S NRG Vancomycin susceptibility test by minimum inhibitory c oncentration 1 NRG Levofloxacin susceptibility test by minimum inhibitory concentration <= NRG Rifampin susceptibility test by minimum inhibitory con centration <= NRG Tetracycline susceptibility test by minimum inhibitory concentration >= NRG Linezolid susceptibility test by minimum inhibitory co ncentration 1 [facility] Fungus culture - 11/22/17 14:38 Fungus culture NG [facility] Whole blood basic metabolic panel - 11/18 03/06 10:57 Serum or plasma sodium measurement (moles/volume) 134 mmol/L 135-145 Serum or plasma potassium measurement (moles/volume) 4.7 mmol/L 3.6-5.0 Serum or plasma chloride measurement (moles/volume) 98 mmol/L 98-107 Carbon dioxide 29 mmol/L - Serum or plasma anion gap determination (moles/volume) 7 mmol/L 5-14 Serum or plasma urea nitrogen measurement (mass/volume ) 13 mg/dL 7-18 Serum or plasma creatinine measurement (mass/volume) 1.03 mg/dL 0.60-1.30 Serum or plasma urea nitrogen/creatinine mass ratio 13 NRG Serum or plasma creatinine measurement w ith calculation of estimated glomerular filtration rate > NRG Serum or plasma glucose measurement (mass/volume) 224 mg/dL 70-105 Serum or plasma calcium measurement (mass/volume) 9.5 mg/dL 8.5-10.1 Whole blood basic metabolic panel - 11/19 12/05 10:32 Serum or plasma sodium measurement (moles/volume) 133 mmol/L 135-145 Serum or plasma potassium measurement (moles/volume) 4.6 mmol/L 3.6-5.0 Serum or plasma chloride measurement (moles/volume) 98 mmol/L 98-107 Carbon dioxide 27 mmol/L Serum or plasma anion gap determination (moles/volume) 8 mmol/L -14 Serum or plasma urea nitrogen measurement (mass/volume ) 11 mg/dL -18 Serum or plasma creatinine measurement (mass/volume) 0.87 mg/dL 0.60-1.30 Serum or plasma urea nitrogen/creatinine mass ratio 13 NRG Serum or plasma creatinine measurement w ith calculation of estimated glomerular filtration rate > NRG Serum or plasma glucose measurement (mass/volume) 185 mg/dL 70-105 Serum or plasma calcium measurement (mass/volume) 9.9 mg/dL 8.5-10.1 Whole blood basic metabolic panel - 11/20 10:59 Serum or plasma sodium measurement (moles/volume) 132 mmol/L 135-145 Serum or plasma potassium measurement (moles/volume) 4.6 mmol/L 3.6-5.0 Serum or plasma chloride measurement (moles/volume) 96 mmol/L 98-107 Carbon dioxide 28 mmol/L Serum or plasma anion gap determination (moles/volume) 8 mmol/L 5-14 Serum or plasma urea nitrogen measurement (mass/volume ) 14 mg/dL 7-18 Serum or plasma creatinine measurement (mass/volume) 0.95 mg/dL 0.60-1.30 Serum or plasma urea nitrogen/creatinine mass ratio 15 NRG Serum or plasma creatinine measurement w ith calculation of estimated glomerular filtration rate > NRG Serum or plasma glucose measurement (mass/volume) 236 mg/dL 70-105 Serum or plasma calcium measurement (mass/volume) 10.1 mg/dL 8.5-10.1 Whole blood basic metabolic panel - 8 10:59 Serum or plasma sodium measurement (moles/volume) 132 mmol/L 135-145 Serum or plasma potassium measurement (moles/volume) 4.6 mmol/L 3.6-5.0 Serum or plasma chloride measurement (moles/volume) 99 mmol/L 98-107 Carbon dioxide 25 mmol/L 21-32 Serum or plasma anion gap determination (moles/volume) 8 mmol/L 5-14 Serum or plasma urea nitrogen measurement (mass/volume ) 11 mg/dL 7-18 Serum or plasma creatinine measurement (mass/volume) 0.88 mg/dL 0.60-1.30 Serum or plasma urea nitrogen/creatinine mass ratio 13 NRG Serum or plasma creatinine measurement w ith calculation of estimated glomerular filtration rate > NRG Serum or plasma glucose measurement (mass/volume) 183 mg/dL 70-105 Serum or plasma calcium measurement (mass/volume) 9.5 mg/dL 8.5-10.1 Bacteria identification in isolate by an aerobe culture - 01/01/18 09:39 Bacteria identification in isolate by anaerobe culture [facility] Gram stain microscopy - 01/01/18 09:39 GRAM STAIN RESULT NO WBC'S OR BACTERIA OBSERVED NR Bacteria identification in wound by cult ure - 01/01/18 09:39 Bacteria identification in wound by culture [id number] NR FREE TEXT EXTERNAL SENSITIVITY REPORTED AT 0718, 18 NRG QUANTITY OF GROWTH Moderate Growth NR Bacterial susceptibility panel - 8 09:39 Oxacillin susceptibility test by minimum inhibitory co ncentration <= NRG Gentamicin susceptibility test by minimum inhibitory c oncentration <= NRG Clindamycin susceptibility test by minimum inhibitory concentration <= NRG Erythromycin susceptibility test by minimum inhibitory concentration >= NRG Trimethoprim/sulfamethoxazole susceptibi lity test by minimum inhibitoryconcentration R NRG Vancomycin susceptibility test by minimum inhibitory c oncentration 1 NRG Levofloxacin susceptibility test by minimum inhibitory concentration 0.25 NRG Rifampin susceptibility test by minimum inhibitory con centration <= NRG Tetracycline susceptibility test by minimum inhibitory concentration >= NRG Linezolid susceptibility test by minimum inhibitory co ncentration 1 NRG Fungus culture - 01/01/18 09:39 QUANTITY OF GROWTH Scant Growth NRG FTX;REPORTABLE UNLESS REQUESTED NRG Fungus culture [id number] NRG IDENTIFICATION TO FOLLOW NO FURTHER STUDIES FOR THIS ISOLATE NRG CBC w/MANUAL DIFF - 12/25/18 09:59 WHITE BLOOD CELL COUNT 7.5 Thousand/uL 3 .8-10.8 RED BLOOD CELL COUNT 4.66 Million/uL 4.2 0-5.80 HEMOGLOBIN 13.2 g/dL 13.2-17.1 HEMATOCRIT 40.2 % 38.5-50.0 MCV 86.3 fL 80.0-100.0 MCH 28.3 pg 27.0-33.0 MCHC 32.8 g/dL 32.0-36.0 RDW 12.6 % 11.0-15.0 PLATELET COUNT 326 Thousand/uL 140-400 MPV 8.7 fL 7.5-12.5 ABSOLUTE NEUTROPHILS 4695 cells/uL 1500- 7800 ABSOLUTE MONOCYTES 533 cells/uL 200-950 ABSOLUTE EOSINOPHILS 225 cells/uL 15-500 ABSOLUTE BASOPHILS 75 cells/uL 0-200 NEUTROPHILS 62.6 % NRG LYMPHOCYTES 26.3 % NRG MONOCYTES 7.1 % NRG EOSINOPHILS 3.0 % NRG BASOPHILS 1.0 % NRG ABSOLUTE LYMPHOCYTES 1973 cells/uL 850-3 900 PLATELET ESTIMATION ADEQUATE ADEQUATE CBC MORPHOLOGY NORMAL TSH - 12/25/18 09:59 TSH 1.21 mIU/L 0.40-4.50 Gram stain microscopy - 01/10/19 10:30 Gram stain microscopy No bacteria seen NRG Bacteria identification in wound by cult ure - 01/10/19 10:30 Bacteria identification in wound by culture [id number] NRG FREE TEXT EXTERNAL SUSCEPTIBILITY REPORTED 01/12/19 14:05 NRG QUANTITY OF GROWTH Rare NRG FREE TEXT ENTRY 2 ID REPORTED 01/11/19 12:05 NRG RML Sensitivity Panel - 01/10/19 10:30 Gentamicin susceptibility test by minimum inhibitory c oncentration <= NRG Trimethoprim/sulfamethoxazole susceptibi lity test by minimum inhibitoryconcentration <= NRG Levofloxacin susceptibility test by minimum inhibitory concentration <= NRG Ampicillin susceptibility test by minimum inhibitory c oncentration <= NRG Cefazolin susceptibility test by minimum inhibitory co ncentration <= NRG Ceftriaxone susceptibility test by minimum inhibitory concentration <= NRG Piperacillin/tazobactam susceptibility t est by minimum inhibitory concentration S NRG Ciprofloxacin susceptibility test by minimum inhibitor y concentration <= NRG Meropenem susceptibility test by minimum inhibitory co ncentration <= NRG Amoxicillin and clavulanate potassium susc KAROL <= NRG Imipenem susceptibility test by minimum inhibitory con centration <= NRG Gram stain microscopy - 01/29/19 10:07 Gram stain microscopy No bacteria seen NRG Bacteria identification in wound by cult ure - 01/29/19 10:07 Bacteria identification in wound by culture [id number] NRG FREE TEXT EXTERNAL NO SUSCEPTIBLILTY PERFORMED NRG QUANTITY OF GROWTH Rare NRG FREE TEXT ENTRY 2 ID REPORTED 01/31/19 15:05 NRG Dirithromycin susceptibility test by dis k diffusion - 01/29/19 10:07 Vancomycin susceptibility test by minimum inhibitory c oncentration 2 NRG Ampicillin susceptibility test by minimum inhibitory c oncentration 1 NRG Linezolid susceptibility test by minimum inhibitory co ncentration 2 NRG Daptomycin susc KAROL 4 NRG TSH w/ FREE T4 - 03/28/19 09:12 TSH 1.14 mIU/L 0.40-4.50 T4, FREE 1.2 ng/dL 0.8-1.8 LIPID PANEL - 03/28/19 09:12 CHOLESTEROL, TOTAL 141 mg/dL <200 HDL CHOLESTEROL 46 mg/dL >40 TRIGLYCERIDES 89 mg/dL <150 LDL-CHOLESTEROL 78 mg/dL (calc) NRG CHOL/HDLC RATIO 3.1 (calc) <5.0 NON HDL CHOLESTEROL 95 mg/dL (calc) <130 CMP - 03/28/19 09:12 GLUCOSE 126 mg/dL 65-99 UREA NITROGEN (BUN) 9 mg/dL 7-25 CREATININE 0.73 mg/dL 0.70-1.18 eGFR NON-AFR. MALIAN 92 mL/min/1.73m2 > OR = 60 eGFR 107 mL/min/1.73m2 > OR = 60 BUN/CREATININE RATIO NOT APPLICABLE (calc) 6-22 SODIUM 134 mmol/L 135-146 POTASSIUM 4.5 mmol/L 3.5-5.3 CHLORIDE 96 mmol/L 98-110 CARBON DIOXIDE 27 mmol/L 20-32 CALCIUM 9.6 mg/dL 8.6-10.3 PROTEIN, TOTAL 6.5 g/dL 6.1-8.1 ALBUMIN 3.7 g/dL 3.6-5.1 GLOBULIN 2.8 g/dL (calc) 1.9-3.7 ALBUMIN/GLOBULIN RATIO 1.3 (calc) 1.0-2. 5 BILIRUBIN, TOTAL 0.3 mg/dL 0.2-1.2 ALKALINE PHOSPHATASE 69 U/L 40-115 AST 14 U/L 10-35 ALT 11 U/L 9-46 CBC w/MANUAL DIFF - 03/28/19 09:12 WHITE BLOOD CELL COUNT 8.8 Thousand/uL 3 .8-10.8 RED BLOOD CELL COUNT 4.40 Million/uL 4.2 0-5.80 HEMOGLOBIN 11.2 g/dL 13.2-17.1 HEMATOCRIT 35.8 % 38.5-50.0 MCV 81.4 fL 80.0-100.0 MCH 25.5 pg 27.0-33.0 MCHC 31.3 g/dL 32.0-36.0 RDW 13.8 % 11.0-15.0 PLATELET COUNT 472 Thousand/uL 140-400 MPV 8.4 fL 7.5-12.5 ABSOLUTE NEUTROPHILS 6354 cells/uL 1500- 7800 ABSOLUTE MONOCYTES 458 cells/uL 200-950 ABSOLUTE EOSINOPHILS 449 cells/uL 15-500 ABSOLUTE BASOPHILS 0 cells/uL 0-200 NEUTROPHILS 72.2 % NRG LYMPHOCYTES 16.5 % NRG MONOCYTES 5.2 % NRG EOSINOPHILS 5.1 % NRG BASOPHILS 0 % NRG ABSOLUTE BAND NEUTROPHILS 88 cells/uL 0- 750 ABSOLUTE LYMPHOCYTES 1452 cells/uL 850-3 900 BAND NEUTROPHILS 1.0 % NRG CBC MORPHOLOGY NORMAL COMMENT(S) NRG ANEMIA PANEL - 04/03/19 10:39 IRON, TOTAL 77 mcg/dL 50-180 FERRITIN 29 ng/mL 24-380 IRON BINDING CAPACITY 316 mcg/dL (calc) 250-425 % SATURATION 24 % (calc) 20-48 CBC w/MANUAL DIFF - 07/14/19 10:23 WHITE BLOOD CELL COUNT 8.5 Thousand/uL 3 .8-10.8 RED BLOOD CELL COUNT 3.87 Million/uL 4.2 0-5.80 HEMOGLOBIN 9.7 g/dL 13.2-17.1 HEMATOCRIT 31.6 % 38.5-50.0 MCV 81.7 fL 80.0-100.0 MCH 25.1 pg 27.0-33.0 MCHC 30.7 g/dL 32.0-36.0 RDW 13.6 % 11.0-15.0 PLATELET COUNT 464 Thousand/uL 140-400 MPV 8.7 fL 7.5-12.5 ABSOLUTE NEUTROPHILS 5780 cells/uL 1500- 7800 ABSOLUTE MONOCYTES 1275 cells/uL 200-950 ABSOLUTE EOSINOPHILS 0 cells/uL 15-500 ABSOLUTE BASOPHILS 0 cells/uL 0-200 NEUTROPHILS 68.0 % NRG LYMPHOCYTES 12.0 % NRG MONOCYTES 15.0 % NRG EOSINOPHILS 0 % NRG BASOPHILS 0 % NRG ABSOLUTE BAND NEUTROPHILS 425 cells/uL 0 -750 ABSOLUTE LYMPHOCYTES 1020 cells/uL 850-3 900 BAND NEUTROPHILS 5.0 % NRG PLATELET ESTIMATION INCREASED ADEQUATE CBC MORPHOLOGY NORMAL CBC w/MANUAL DIFF - 07/30/19 15:03 WHITE BLOOD CELL COUNT 9.2 Thousand/uL 3 .8-10.8 RED BLOOD CELL COUNT 3.53 Million/uL 4.2 0-5.80 HEMOGLOBIN 9.1 g/dL 13.2-17.1 HEMATOCRIT 28.9 % 38.5-50.0 MCV 81.9 fL 80.0-100.0 MCH 25.8 pg 27.0-33.0 MCHC 31.5 g/dL 32.0-36.0 RDW 14.2 % 11.0-15.0 PLATELET COUNT 441 Thousand/uL 140-400 MPV 8.8 fL 7.5-12.5 ABSOLUTE NEUTROPHILS 7176 cells/uL 1500- 7800 ABSOLUTE MONOCYTES 828 cells/uL 200-950 ABSOLUTE EOSINOPHILS 92 cells/uL 15-500 ABSOLUTE BASOPHILS 0 cells/uL 0-200 NEUTROPHILS 78.0 % NRG LYMPHOCYTES 12.0 % NRG MONOCYTES 9.0 % NRG EOSINOPHILS 1.0 % NRG BASOPHILS 0 % NRG ABSOLUTE LYMPHOCYTES 1104 cells/uL 850-3 900 CBC MORPHOLOGY NORMAL COMMENT(S) NRG Methicillin resistant Staphylococcus aur eus (MRSA) screening culture - 08/18/19 14:25 Methicillin resistant Staphylococcus aureus (MRSA) scr eening culture NEG NRG Complete blood count (CBC) with automate d white blood cell (WBC) differential - 08/18/19 14:30 Blood leukocytes automated count (number/volume) 7.9 10*3/uL 4.3-11.0 Blood erythrocytes automated count (number/volume) 4.52 10*6/uL 4.35-5.85 Venous blood hemoglobin measurement (mass/volume) 11.2 g/dL 13.3-17.7 Blood hematocrit (volume fraction) 37 % 40-54 Automated erythrocyte mean corpuscular volume 82 [ foz_us] 80-99 Automated erythrocyte mean corpuscular h emoglobin (mass per erythrocyte) 25 pg 25-34 Automated erythrocyte mean corpuscular h emoglobin concentration measurement (mass/volume) 30 g/dL 32-36 Automated erythrocyte distribution width ratio 17. 7 % 10.0- 14.5 Automated blood platelet count (count/volume) 415 10*3/uL 130-400 Automated blood platelet mean volume measurement 8.9 [foz_us] 7.4-10.4 Automated blood neutrophils/100 leukocytes 70 % 42-75 Automated blood lymphocytes/100 leukocytes 17 % 12-44 Blood monocytes/100 leukocytes 10 % 0-12 Automated blood eosinophils/100 leukocytes 3 % 0-10 Automated blood basophils/100 leukocytes 0 % 0-10 Blood neutrophils automated count (number/volume) 5.5 10*3 1.8-7.8 Blood lymphocytes automated count (number/volume) 1.3 10*3 1.0-4.0 Blood monocytes automated count (number/volume) 0. 8 10*3 0.0-1.0 Automated eosinophil count 0.3 10*3/uL 0 .0-0.3 Automated blood basophil count (count/volume) 0.0 10*3/uL 0.0-0.1 Blood type T Indirect antibody screen [facility] - 08/18/19 14:30 ABO+Rh group AP NRG Blood group antibody screen NEGATIVE NR G Capillary blood glucose measurement by g lucometer (mass/volume) - 08/28/19 10:17 Capillary blood glucose measurement by glucometer (mas s/volume) 109 mg/dL 70-110 Blood type T Indirect antibody screen [facility] - 08/28/19 10:25 WRISTBAND NUMBER [id number] NRG ABO+Rh group AP NRG Blood group antibody screen NEGATIVE NR G Methicillin resistant Staphylococcus aur eus (MRSA) screening culture - 08/28/19 16:35 Methicillin resistant Staphylococcus aureus (MRSA) scr eening culture NEG NRG Automated blood complete blood count (he mogram) panel - 08/29/19 05:40 Blood leukocytes automated count (number/volume) 12.7 10*3/uL 4.3-11.0 Blood erythrocytes automated count (number/volume) 4.42 10*6/uL 4.35-5.85 Venous blood hemoglobin measurement (mass/volume) 11.0 g/dL 13.3-17.7 Blood hematocrit (volume fraction) 36 % 40-54 Automated erythrocyte mean corpuscular volume 81 [ foz_us] 80-99 Automated erythrocyte mean corpuscular h emoglobin (mass per erythrocyte) 25 pg 25-34 Automated erythrocyte mean corpuscular h emoglobin concentration measurement (mass/volume) 31 g/dL 32-36 Automated erythrocyte distribution width ratio 17. 5 % 10.0- 14.5 Automated blood platelet count (count/volume) 300 10*3/uL 130-400 Automated blood platelet mean volume measurement 8.6 [foz_us] 7.4-10.4 Comprehensive metabolic panel - 08/29/19 05:40 Serum or plasma sodium measurement (moles/volume) 140 mmol/L 135-145 Serum or plasma potassium measurement (moles/volume) 3.2 mmol/L 3.6-5.0 Serum or plasma chloride measurement (moles/volume) 107 mmol/L 98-107 Carbon dioxide 21 mmol/L 21-32 Serum or plasma anion gap determination (moles/volume) 12 mmol/L 5-14 Serum or plasma urea nitrogen measurement (mass/volume ) 10 mg/dL 7-18 Serum or plasma creatinine measurement (mass/volume) 0.82 mg/dL 0.60-1.30 Serum or plasma urea nitrogen/creatinine mass ratio 12 NRG Serum or plasma creatinine measurement w ith calculation of estimated glomerular filtration rate > NRG Serum or plasma glucose measurement (mass/volume) 141 mg/dL 70-105 Serum or plasma calcium measurement (mass/volume) 7.9 mg/dL 8.5-10.1 Serum or plasma total bilirubin measurement (mass/volu me) 0.2 mg/dL 0.1-1.0 Serum or plasma alkaline phosphatase isela surement (enzymatic activity/volume) 55 U/L 40-136 Serum or plasma aspartate aminotransfera se measurement (enzymatic activity/volume) 17 U/L 5-34 Serum or plasma alanine aminotransferase measurement (enzymatic activity/volume) 11 U/L 0-55 Serum or plasma protein measurement (mass/volume) 5.6 g/dL 6.4-8.2 Serum or plasma albumin measurement (mass/volume) 3.3 g/dL 3.2-4.5 CALCIUM CORRECTED 8.5 mg/dL 8.5-10.1 Serum or plasma phosphate measurement (m ass/volume) - 08/29/19 05:40 Serum or plasma phosphate measurement (mass/volume) 3.8 mg/dL 2.3-4.7 Magnesium - 08/29/19 05:40 Magnesium 1.8 mg/dL 1.6-2.4 Capillary blood glucose measurement by g lucometer (mass/volume) - 08/29/19 11:29 Capillary blood glucose measurement by glucometer (mas s/volume) 126 mg/dL 70-110 Capillary blood glucose measurement by g lucometer (mass/volume) - 08/29/19 16:18 Capillary blood glucose measurement by glucometer (mas s/volume) 251 mg/dL 70-110 Capillary blood glucose measurement by g lucometer (mass/volume) - 08/29/19 20:24 Capillary blood glucose measurement by glucometer (mas s/volume) 259 mg/dL 70-110 Automated blood complete blood count (he mogram) panel - 08/30/19 05:40 Blood leukocytes automated count (number/volume) 11.6 10*3/uL 4.3-11.0 Blood erythrocytes automated count (number/volume) 4.07 10*6/uL 4.35-5.85 Venous blood hemoglobin measurement (mass/volume) 10.2 g/dL 13.3-17.7 Blood hematocrit (volume fraction) 33 % 40-54 Automated erythrocyte mean corpuscular volume 81 [ foz_us] 80-99 Automated erythrocyte mean corpuscular h emoglobin (mass per erythrocyte) 25 pg 25-34 Automated erythrocyte mean corpuscular h emoglobin concentration measurement (mass/volume) 31 g/dL 32-36 Automated erythrocyte distribution width ratio 17. 6 % 10.0- 14.5 Automated blood platelet count (count/volume) 262 10*3/uL 130-400 Automated blood platelet mean volume measurement 9.1 [foz_us] 7.4-10.4 Whole blood basic metabolic panel - 08/20 09/08 05:40 Serum or plasma sodium measurement (moles/volume) 140 mmol/L 135-145 Serum or plasma potassium measurement (moles/volume) 2.8 mmol/L 3.6-5.0 Serum or plasma chloride measurement (moles/volume) 107 mmol/L 98-107 Carbon dioxide 24 mmol/L 21-32 Serum or plasma anion gap determination (moles/volume) 9 mmol/L 5-14 Serum or plasma urea nitrogen measurement (mass/volume ) 7 mg/dL 7-18 Serum or plasma creatinine measurement (mass/volume) 0.69 mg/dL 0.60-1.30 Serum or plasma urea nitrogen/creatinine mass ratio 10 NRG Serum or plasma creatinine measurement w ith calculation of estimated glomerular filtration rate > NRG Serum or plasma glucose measurement (mass/volume) 157 mg/dL 70-105 Serum or plasma calcium measurement (mass/volume) 8.4 mg/dL 8.5-10.1 Serum or plasma phosphate measurement (m ass/volume) - 08/30/19 05:40 Serum or plasma phosphate measurement (mass/volume) 1.3 mg/dL 2.3-4.7 Magnesium - 08/30/19 05:40 Magnesium 1.9 mg/dL 1.6-2.4 Capillary blood glucose measurement by g lucometer (mass/volume) - 08/30/19 06:15 Capillary blood glucose measurement by glucometer (mas s/volume) 152 mg/dL 70-110 Capillary blood glucose measurement by g lucometer (mass/volume) - 08/30/19 11:02 Capillary blood glucose measurement by glucometer (mas s/volume) 339 mg/dL 70-110 Capillary blood glucose measurement by g lucometer (mass/volume) - 08/30/19 15:19 Capillary blood glucose measurement by glucometer (mas s/volume) 222 mg/dL 70-110 Capillary blood glucose measurement by g lucometer (mass/volume) - 08/30/19 21:09 Capillary blood glucose measurement by glucometer (mas s/volume) 258 mg/dL 70-110 Complete blood count (CBC) with automate d white blood cell (WBC) differential - 08/31/19 05:35 Blood leukocytes automated count (number/volume) 14.4 10*3/uL 4.3-11.0 Blood erythrocytes automated count (number/volume) 4.14 10*6/uL 4.35-5.85 Venous blood hemoglobin measurement (mass/volume) 10.4 g/dL 13.3-17.7 Blood hematocrit (volume fraction) 33 % 40-54 Automated erythrocyte mean corpuscular volume 80 [ foz_us] 80-99 Automated erythrocyte mean corpuscular h emoglobin (mass per erythrocyte) 25 pg 25-34 Automated erythrocyte mean corpuscular h emoglobin concentration measurement (mass/volume) 31 g/dL 32-36 Automated erythrocyte distribution width ratio 17. 7 % 10.0- 14.5 Automated blood platelet count (count/volume) 313 10*3/uL 130-400 Automated blood platelet mean volume measurement 9.4 [foz_us] 7.4-10.4 Automated blood neutrophils/100 leukocytes 84 % 42-75 Automated blood lymphocytes/100 leukocytes 7 % 12-44 Blood monocytes/100 leukocytes 9 % 0-12 Automated blood eosinophils/100 leukocytes 0 % 0-10 Automated blood basophils/100 leukocytes 0 % 0-10 Blood neutrophils automated count (number/volume) 12.1 10*3 1.8-7.8 Blood lymphocytes automated count (number/volume) 1.0 10*3 1.0-4.0 Blood monocytes automated count (number/volume) 1. 3 10*3 0.0-1.0 Automated eosinophil count 0.1 10*3/uL 0 .0-0.3 Automated blood basophil count (count/volume) 0.0 10*3/uL 0.0-0.1 Whole blood basic metabolic panel - 08/20 10/09 05:35 Serum or plasma sodium measurement (moles/volume) 136 mmol/L 135-145 Serum or plasma potassium measurement (moles/volume) 2.8 mmol/L 3.6-5.0 Serum or plasma chloride measurement (moles/volume) 103 mmol/L 98-107 Carbon dioxide 24 mmol/L 21-32 Serum or plasma anion gap determination (moles/volume) 9 mmol/L 5-14 Serum or plasma urea nitrogen measurement (mass/volume ) 7 mg/dL 7-18 Serum or plasma creatinine measurement (mass/volume) 0.85 mg/dL 0.60-1.30 Serum or plasma urea nitrogen/creatinine mass ratio 8 NRG Serum or plasma creatinine measurement w ith calculation of estimated glomerular filtration rate > NRG Serum or plasma glucose measurement (mass/volume) 130 mg/dL 70-105 Serum or plasma calcium measurement (mass/volume) 8.1 mg/dL 8.5-10.1 Serum or plasma phosphate measurement (m ass/volume) - 08/31/19 05:35 Serum or plasma phosphate measurement (mass/volume) 1.7 mg/dL 2.3-4.7 Magnesium - 08/31/19 05:35 Magnesium 1.9 mg/dL 1.6-2.4 Capillary blood glucose measurement by g lucometer (mass/volume) - 08/31/19 12:03 Capillary blood glucose measurement by glucometer (mas s/volume) 264 mg/dL 70-110 Capillary blood glucose measurement by g lucometer (mass/volume) - 08/31/19 15:27 Capillary blood glucose measurement by glucometer (mas s/volume) 167 mg/dL 70-110 Capillary blood glucose measurement by g lucometer (mass/volume) - 08/31/19 20:03 Capillary blood glucose measurement by glucometer (mas s/volume) 253 mg/dL 70-110 Complete blood count (CBC) with automate d white blood cell (WBC) differential - 09/01/19 05:11 Blood leukocytes automated count (number/volume) 13.4 10*3/uL 4.3-11.0 Blood erythrocytes automated count (number/volume) 4.27 10*6/uL 4.35-5.85 Venous blood hemoglobin measurement (mass/volume) 10.7 g/dL 13.3-17.7 Blood hematocrit (volume fraction) 34 % 40-54 Automated erythrocyte mean corpuscular volume 79 [ foz_us] 80-99 Automated erythrocyte mean corpuscular h emoglobin (mass per erythrocyte) 25 pg 25-34 Automated erythrocyte mean corpuscular h emoglobin concentration measurement (mass/volume) 32 g/dL 32-36 Automated erythrocyte distribution width ratio 17. 4 % 10.0- 14.5 Automated blood platelet count (count/volume) 316 10*3/uL 130-400 Automated blood platelet mean volume measurement 9.2 [foz_us] 7.4-10.4 Automated blood neutrophils/100 leukocytes 80 % 42-75 Automated blood lymphocytes/100 leukocytes 10 % 12-44 Blood monocytes/100 leukocytes 10 % 0-12 Automated blood eosinophils/100 leukocytes 1 % 0-10 Automated blood basophils/100 leukocytes 0 % 0-10 Blood neutrophils automated count (number/volume) 10.7 10*3 1.8-7.8 Blood lymphocytes automated count (number/volume) 1.3 10*3 1.0-4.0 Blood monocytes automated count (number/volume) 1. 3 10*3 0.0-1.0 Automated eosinophil count 0.1 10*3/uL 0 .0-0.3 Automated blood basophil count (count/volume) 0.0 10*3/uL 0.0-0.1 Comprehensive metabolic panel - 09/01/19 05:11 Serum or plasma sodium measurement (moles/volume) 136 mmol/L 135-145 Serum or plasma potassium measurement (moles/volume) 2.6 mmol/L 3.6-5.0 Serum or plasma chloride measurement (moles/volume) 103 mmol/L 98-107 Carbon dioxide 24 mmol/L 21-32 Serum or plasma anion gap determination (moles/volume) 9 mmol/L 5-14 Serum or plasma urea nitrogen measurement (mass/volume ) 7 mg/dL 7-18 Serum or plasma creatinine measurement (mass/volume) 0.75 mg/dL 0.60-1.30 Serum or plasma urea nitrogen/creatinine mass ratio 9 NRG Serum or plasma creatinine measurement w ith calculation of estimated glomerular filtration rate > NRG Serum or plasma glucose measurement (mass/volume) 68 mg/dL 70-105 Serum or plasma calcium measurement (mass/volume) 7.8 mg/dL 8.5-10.1 Serum or plasma total bilirubin measurement (mass/volu me) 0.3 mg/dL 0.1-1.0 Serum or plasma alkaline phosphatase isela surement (enzymatic activity/volume) 68 U/L 40-136 Serum or plasma aspartate aminotransfera se measurement (enzymatic activity/volume) 10 U/L 5-34 Serum or plasma alanine aminotransferase measurement (enzymatic activity/volume) 7 U/L 0-55 Serum or plasma protein measurement (mass/volume) 4.7 g/dL 6.4-8.2 Serum or plasma albumin measurement (mass/volume) 2.5 g/dL 3.2-4.5 CALCIUM CORRECTED 9.0 mg/dL 8.5-10.1 Serum or plasma phosphate measurement (m ass/volume) - 09/01/19 05:11 Serum or plasma phosphate measurement (mass/volume) 2.1 mg/dL 2.3-4.7 Magnesium - 09/01/19 05:11 Magnesium 1.9 mg/dL 1.6-2.4 Capillary blood glucose measurement by g lucometer (mass/volume) - 09/01/19 11:03 Capillary blood glucose measurement by glucometer (mas s/volume) 184 mg/dL 70-110 Capillary blood glucose measurement by g lucometer (mass/volume) - 09/01/19 16:22 Capillary blood glucose measurement by glucometer (mas s/volume) 223 mg/dL 70-110 Capillary blood glucose measurement by g lucometer (mass/volume) - 09/01/19 20:20 Capillary blood glucose measurement by glucometer (mas s/volume) 232 mg/dL 70-110 Complete blood count (CBC) with automate d white blood cell (WBC) differential - 09/02/19 06:00 Blood leukocytes automated count (number/volume) 21.5 10*3/uL 4.3-11.0 Blood erythrocytes automated count (number/volume) 4.36 10*6/uL 4.35-5.85 Venous blood hemoglobin measurement (mass/volume) 10.9 g/dL 13.3-17.7 Blood hematocrit (volume fraction) 34 % 40-54 Automated erythrocyte mean corpuscular volume 79 [ foz_us] 80-99 Automated erythrocyte mean corpuscular h emoglobin (mass per erythrocyte) 25 pg 25-34 Automated erythrocyte mean corpuscular h emoglobin concentration measurement (mass/volume) 32 g/dL 32-36 Automated erythrocyte distribution width ratio 18. 1 % 10.0- 14.5 Automated blood platelet count (count/volume) 340 10*3/uL 130-400 Automated blood platelet mean volume measurement 9.5 [foz_us] 7.4-10.4 Automated blood neutrophils/100 leukocytes 87 % 42-75 Automated blood lymphocytes/100 leukocytes 3 % 12-44 Blood monocytes/100 leukocytes 10 % 0-12 Automated blood eosinophils/100 leukocytes 0 % 0-10 Automated blood basophils/100 leukocytes 0 % 0-10 Blood neutrophils automated count (number/volume) 18.7 10*3 1.8-7.8 Blood lymphocytes automated count (number/volume) 0.7 10*3 1.0-4.0 Blood monocytes automated count (number/volume) 2. 1 10*3 0.0-1.0 Automated eosinophil count 0.0 10*3/uL 0 .0-0.3 Automated blood basophil count (count/volume) 0.0 10*3/uL 0.0-0.1 Manual absolute plasma cell count - 08/20 12/07 06:00 Blood monocytes/100 leukocytes 7 % NRG Manual blood segmented neutrophils/100 leukocytes 84 % NRG Blood band neutrophils/100 leukocytes 7 % NRG Manual blood lymphocytes/100 leukocytes 2 % NRG Manual eosinophils/100 leukocytes in nose 0 % NRG Manual blood basophils/100 leukocytes 0 % NRG Blood anisocytosis detection by light microscopy M ODERATE NRG Blood ovalocytes detection by light microscopy SLI GHT NRG Whole blood basic metabolic panel - 08/20 12/07 06:10 Serum or plasma sodium measurement (moles/volume) 138 mmol/L 135-145 Serum or plasma potassium measurement (moles/volume) 2.7 mmol/L 3.6-5.0 Serum or plasma chloride measurement (moles/volume) 101 mmol/L 98-107 Carbon dioxide 26 mmol/L 21-32 Serum or plasma anion gap determination (moles/volume) 11 mmol/L 5-14 Serum or plasma urea nitrogen measurement (mass/volume ) 11 mg/dL 7-18 Serum or plasma creatinine measurement (mass/volume) 0.92 mg/dL 0.60-1.30 Serum or plasma urea nitrogen/creatinine mass ratio 12 NRG Serum or plasma creatinine measurement w ith calculation of estimated glomerular filtration rate > NRG Serum or plasma glucose measurement (mass/volume) 158 mg/dL 70-105 Serum or plasma calcium measurement (mass/volume) 8.2 mg/dL 8.5-10.1 Serum or plasma phosphate measurement (m ass/volume) - 09/02/19 06:10 Serum or plasma phosphate measurement (mass/volume) 2.6 mg/dL 2.3-4.7 Magnesium - 09/02/19 06:10 Magnesium 1.9 mg/dL 1.6-2.4 Capillary blood glucose measurement by g lucometer (mass/volume) - 09/02/19 10:57 Capillary blood glucose measurement by glucometer (mas s/volume) 180 mg/dL 70-110 Capillary blood glucose measurement by g lucometer (mass/volume) - 09/02/19 15:39 Capillary blood glucose measurement by glucometer (mas s/volume) 160 mg/dL 70-110 Serum or plasma potassium measurement (m oles/volume) - 09/02/19 16:50 Serum or plasma potassium measurement (moles/volume) 3.3 mmol/L 3.6-5.0 Capillary blood glucose measurement by g lucometer (mass/volume) - 09/02/19 19:53 Capillary blood glucose measurement by glucometer (mas s/volume) 179 mg/dL 70-110 Capillary blood glucose measurement by g lucometer (mass/volume) - 09/02/19 23:23 Capillary blood glucose measurement by glucometer (mas s/volume) 209 mg/dL 70-110 Capillary blood glucose measurement by g lucometer (mass/volume) - 09/03/19 06:09 Capillary blood glucose measurement by glucometer (mas s/volume) 172 mg/dL 70-110 Complete blood count (CBC) with automate d white blood cell (WBC) differential - 09/03/19 06:10 Blood leukocytes automated count (number/volume) 14.9 10*3/uL 4.3-11.0 Blood erythrocytes automated count (number/volume) 4.04 10*6/uL 4.35-5.85 Venous blood hemoglobin measurement (mass/volume) 10.1 g/dL 13.3-17.7 Blood hematocrit (volume fraction) 32 % 40-54 Automated erythrocyte mean corpuscular volume 78 [ foz_us] 80-99 Automated erythrocyte mean corpuscular h emoglobin (mass per erythrocyte) 25 pg 25-34 Automated erythrocyte mean corpuscular h emoglobin concentration measurement (mass/volume) 32 g/dL 32-36 Automated erythrocyte distribution width ratio 17. 6 % 10.0- 14.5 Automated blood platelet count (count/volume) 291 10*3/uL 130-400 Automated blood platelet mean volume measurement 9.1 [foz_us] 7.4-10.4 Automated blood neutrophils/100 leukocytes 87 % 42-75 Automated blood lymphocytes/100 leukocytes 4 % 12-44 Blood monocytes/100 leukocytes 9 % 0-12 Automated blood eosinophils/100 leukocytes 0 % 0-10 Automated blood basophils/100 leukocytes 0 % 0-10 Blood neutrophils automated count (number/volume) 12.9 10*3 1.8-7.8 Blood lymphocytes automated count (number/volume) 0.7 10*3 1.0-4.0 Blood monocytes automated count (number/volume) 1. 3 10*3 0.0-1.0 Automated eosinophil count 0.1 10*3/uL 0 .0-0.3 Automated blood basophil count (count/volume) 0.0 10*3/uL 0.0-0.1 Whole blood basic metabolic panel - 08/20 01/06 06:10 Serum or plasma sodium measurement (moles/volume) 140 mmol/L 135-145 Serum or plasma potassium measurement (moles/volume) 2.9 mmol/L 3.6-5.0 Serum or plasma chloride measurement (moles/volume) 100 mmol/L 98-107 Carbon dioxide 29 mmol/L 21-32 Serum or plasma anion gap determination (moles/volume) 11 mmol/L 5-14 Serum or plasma urea nitrogen measurement (mass/volume ) 20 mg/dL 7-18 Serum or plasma creatinine measurement (mass/volume) 1.13 mg/dL 0.60-1.30 Serum or plasma urea nitrogen/creatinine mass ratio 18 NRG Serum or plasma creatinine measurement w ith calculation of estimated glomerular filtration rate > NRG Serum or plasma glucose measurement (mass/volume) 172 mg/dL 70-105 Serum or plasma calcium measurement (mass/volume) 8.3 mg/dL 8.5-10.1 Serum or plasma phosphate measurement (m ass/volume) - 09/03/19 06:10 Serum or plasma phosphate measurement (mass/volume) 3.4 mg/dL 2.3-4.7 Magnesium - 09/03/19 06:10 Magnesium 2.0 mg/dL 1.6-2.4 Capillary blood glucose measurement by g lucometer (mass/volume) - 09/03/19 11:15 Capillary blood glucose measurement by glucometer (mas s/volume) 239 mg/dL 70-110 Creatinine body fluid - 09/03/19 18:15 Creatinine body fluid 1.13 mg/dL NRG Capillary blood glucose measurement by g lucometer (mass/volume) - 09/04/19 00:48 Capillary blood glucose measurement by glucometer (mas s/volume) 233 mg/dL 70-110 Complete blood count (CBC) with automate d white blood cell (WBC) differential - 09/04/19 04:58 Blood leukocytes automated count (number/volume) 13.1 10*3/uL 4.3-11.0 Blood erythrocytes automated count (number/volume) 4.00 10*6/uL 4.35-5.85 Venous blood hemoglobin measurement (mass/volume) 9.9 g/dL 13.3-17.7 Blood hematocrit (volume fraction) 31 % 40-54 Automated erythrocyte mean corpuscular volume 78 [ foz_us] 80-99 Automated erythrocyte mean corpuscular h emoglobin (mass per erythrocyte) 25 pg 25-34 Automated erythrocyte mean corpuscular h emoglobin concentration measurement (mass/volume) 32 g/dL 32-36 Automated erythrocyte distribution width ratio 18. 0 % 10.0- 14.5 Automated blood platelet count (count/volume) 323 10*3/uL 130-400 Automated blood platelet mean volume measurement 9.2 [foz_us] 7.4-10.4 Automated blood neutrophils/100 leukocytes 85 % 42-75 Automated blood lymphocytes/100 leukocytes 5 % 12-44 Blood monocytes/100 leukocytes 10 % 0-12 Automated blood eosinophils/100 leukocytes 1 % 0-10 Automated blood basophils/100 leukocytes 0 % 0-10 Blood neutrophils automated count (number/volume) 11.1 10*3 1.8-7.8 Blood lymphocytes automated count (number/volume) 0.6 10*3 1.0-4.0 Blood monocytes automated count (number/volume) 1. 3 10*3 0.0-1.0 Automated eosinophil count 0.1 10*3/uL 0 .0-0.3 Automated blood basophil count (count/volume) 0.0 10*3/uL 0.0-0.1 Whole blood basic metabolic panel - 08/20 02/06 04:58 Serum or plasma sodium measurement (moles/volume) 140 mmol/L 135-145 Serum or plasma potassium measurement (moles/volume) 3.1 mmol/L 3.6-5.0 Serum or plasma chloride measurement (moles/volume) 101 mmol/L 98-107 Carbon dioxide 28 mmol/L 21-32 Serum or plasma anion gap determination (moles/volume) 11 mmol/L 5-14 Serum or plasma urea nitrogen measurement (mass/volume ) 23 mg/dL 7-18 Serum or plasma creatinine measurement (mass/volume) 1.17 mg/dL 0.60-1.30 Serum or plasma urea nitrogen/creatinine mass ratio 20 NRG Serum or plasma creatinine measurement w ith calculation of estimated glomerular filtration rate > NRG Serum or plasma glucose measurement (mass/volume) 199 mg/dL 70-105 Serum or plasma calcium measurement (mass/volume) 8.4 mg/dL 8.5-10.1 Serum or plasma phosphate measurement (m ass/volume) - 09/04/19 04:58 Serum or plasma phosphate measurement (mass/volume) 3.0 mg/dL 2.3-4.7 Magnesium - 09/04/19 04:58 Magnesium 2.0 mg/dL 1.6-2.4 Capillary blood glucose measurement by g lucometer (mass/volume) - 09/04/19 12:41 Capillary blood glucose measurement by glucometer (mas s/volume) 304 mg/dL 70-110 Capillary blood glucose measurement by g lucometer (mass/volume) - 09/04/19 17:43 Capillary blood glucose measurement by glucometer (mas s/volume) 252 mg/dL 70-110 Capillary blood glucose measurement by g lucometer (mass/volume) - 09/04/19 23:30 Capillary blood glucose measurement by glucometer (mas s/volume) 254 mg/dL 70-110 Complete blood count (CBC) with automate d white blood cell (WBC) differential - 09/05/19 05:32 Blood leukocytes automated count (number/volume) 16.7 10*3/uL 4.3-11.0 Blood erythrocytes automated count (number/volume) 4.25 10*6/uL 4.35-5.85 Venous blood hemoglobin measurement (mass/volume) 10.7 g/dL 13.3-17.7 Blood hematocrit (volume fraction) 34 % 40-54 Automated erythrocyte mean corpuscular volume 79 [ foz_us] 80-99 Automated erythrocyte mean corpuscular h emoglobin (mass per erythrocyte) 25 pg 25-34 Automated erythrocyte mean corpuscular h emoglobin concentration measurement (mass/volume) 32 g/dL 32-36 Automated erythrocyte distribution width ratio 18. 4 % 10.0- 14.5 Automated blood platelet count (count/volume) 354 10*3/uL 130-400 Automated blood platelet mean volume measurement 9.3 [foz_us] 7.4-10.4 Automated blood neutrophils/100 leukocytes 90 % 42-75 Automated blood lymphocytes/100 leukocytes 3 % 12-44 Blood monocytes/100 leukocytes 7 % 0-12 Automated blood eosinophils/100 leukocytes 0 % 0-10 Automated blood basophils/100 leukocytes 0 % 0-10 Blood neutrophils automated count (number/volume) 15.0 10*3 1.8-7.8 Blood lymphocytes automated count (number/volume) 0.4 10*3 1.0-4.0 Blood monocytes automated count (number/volume) 1. 2 10*3 0.0-1.0 Automated eosinophil count 0.0 10*3/uL 0 .0-0.3 Automated blood basophil count (count/volume) 0.0 10*3/uL 0.0-0.1 Whole blood basic metabolic panel - 08/20 03/08 05:32 Serum or plasma sodium measurement (moles/volume) 141 mmol/L 135-145 Serum or plasma potassium measurement (moles/volume) 3.8 mmol/L 3.6-5.0 Serum or plasma chloride measurement (moles/volume) 103 mmol/L 98-107 Carbon dioxide 28 mmol/L 21-32 Serum or plasma anion gap determination (moles/volume) 10 mmol/L 5-14 Serum or plasma urea nitrogen measurement (mass/volume ) 28 mg/dL 7-18 Serum or plasma creatinine measurement (mass/volume) 1.11 mg/dL 0.60-1.30 Serum or plasma urea nitrogen/creatinine mass ratio 25 NRG Serum or plasma creatinine measurement w ith calculation of estimated glomerular filtration rate > NRG Serum or plasma glucose measurement (mass/volume) 293 mg/dL 70-105 Serum or plasma calcium measurement (mass/volume) 8.3 mg/dL 8.5-10.1 Serum or plasma phosphate measurement (m ass/volume) - 09/05/19 05:32 Serum or plasma phosphate measurement (mass/volume) 3.0 mg/dL 2.3-4.7 Magnesium - 09/05/19 05:32 Magnesium 2.2 mg/dL 1.6-2.4 Serum or plasma lithium measurement (mol es/volume) - 09/05/19 05:32 BNP PT 78.1 pg/mL <100.0 Capillary blood glucose measurement by g lucometer (mass/volume) - 09/05/19 06:16 Capillary blood glucose measurement by glucometer (mas s/volume) 275 mg/dL 70-110 Bacterial blood culture - 09/05/19 09:12 Bacterial blood culture NG NRG Bacterial blood culture - 09/05/19 09:12 Bacterial blood culture NG NRG Bacterial blood culture - 09/05/19 10:01 Bacterial blood culture NG NRG Capillary blood glucose measurement by g lucometer (mass/volume) - 09/05/19 11:17 Capillary blood glucose measurement by glucometer (mas s/volume) 263 mg/dL 70-110 Blood type T Indirect antibody screen pa david - 09/05/19 14:22 WRISTBAND NUMBER [id number] NRG ABO+Rh group AP NRG Blood group antibody screen NEGATIVE NR G Bacteria identification in isolate by an aerobe culture - 09/05/19 15:00 Bacteria identification in isolate by anaerobe culture NOANA NRG Gram stain microscopy - 09/05/19 15:00 Gram stain microscopy No bacteria seen NRG Bacteria identification in wound by cult ure - 09/05/19 15:00 Bacteria identification in wound by culture [id number] NRG FREE TEXT EXTERNAL SUSCEPTIBILITY REPORTED [id number] NRG QUANTITY OF GROWTH Rare NRG Dirithromycin susceptibility test by dis k diffusion - 09/05/19 15:00 Oxacillin susceptibility test by minimum inhibitory co ncentration > NRG Clindamycin susceptibility test by minimum inhibitory concentration > NRG Erythromycin susceptibility test by minimum inhibitory concentration > NRG Vancomycin susceptibility test by minimum inhibitory c oncentration 2 NRG Levofloxacin susceptibility test by minimum inhibitory concentration > NRG Rifampin susceptibility test by minimum inhibitory con centration <= NRG Cefazolin susceptibility test by minimum inhibitory co ncentration R NRG Linezolid susceptibility test by minimum inhibitory co ncentration 2 NRG Penicillin G susceptibility test by minimum inhibitory concentration > NRG Minocycline susc KAROL <= NRG Fungus culture - 09/05/19 15:00 Creatinine body fluid - 09/05/19 15:10 Creatinine body fluid 68.36 mg/dL NRG Bacteria identification in isolate by an aerobe culture - 09/05/19 15:10 Bacteria identification in isolate by anaerobe culture NOANA NRG Gram stain microscopy - 09/05/19 15:10 Gram stain microscopy Source: 3 sigmoid port ion surgical tissue specimen NRG Bacteria identification in wound by cult ure - 09/05/19 15:10 Bacteria identification in wound by culture SEE CO MMEN NRG FREE TEXT EXTERNAL PRELIM RAPID ID TEST AT V IA TAWNY 09/08 NRG QUANTITY OF GROWTH . NRG FREE TEXT EXTERNAL 2 REFER TO PREVIOUS CULTURE FOR NRG FREE TEXT EXTERNAL 3 SUSCEPTIBILITY NRG Fungus culture - 09/05/19 15:10 Capillary blood glucose measurement by g lucometer (mass/volume) - 09/05/19 18:09 Capillary blood glucose measurement by glucometer (mas s/volume) 252 mg/dL 70-110 Whole blood hemoglobin and hematocrit pa david - 09/05/19 20:00 Venous blood hemoglobin measurement (mass/volume) 10.2 g/dL 13.3-17.7 Blood hematocrit (volume fraction) 32 % 40-54 Arterial blood gas measurement - 0 20:00 Blood pCO2 44 mm[Hg] 35-45 Blood pO2 147 mm[Hg] 79-93 Arterial blood bicarbonate measurement (moles/volume) 30 mmol/L 23-27 Arterial blood base excess by calculation 5.9 mmol /L -2.5-2.5 Arterial blood oxygen saturation measurement 100 % 94-100 * Inhaled oxygen flow rate 50% NRG Arterial blood pH measurement with patient temperature correction 7.45 7.37-7.43 Arterial blood carbon dioxide, total measurement (mole s/volume) 31.3 mmol/L 21.0-31.0 Body site RIGHT ARTLINE NRG Assessment of wrist artery patency prior to arterial p uncture ARTLINE NRG Setting of ventilation mode YES NR G Measurement of body temperature 36.6 NRG Serum or plasma triglyceride measurement (mass/volume) - 09/05/19 20:00 Serum or plasma triglyceride measurement (mass/volume) 131 mg/dL <150 Complete urinalysis with reflex to cultu re - 09/05/19 20:08 Urine color determination YELLOW NRG Urine clarity determination CLEAR NR G Urine pH measurement by test strip 5.5 5-9 Specific gravity of urine by test strip 1.015 1.016-1.022 Urine protein assay by test strip, semi-quantitative NEGATIVE NEGATIVE Urine glucose detection by automated test strip 3+ NEGATIVE Erythrocytes detection in urine sediment by light micr oscopy NEGATIVE NEGATIVE Urine ketones detection by automated test strip NE GATIVE NEGATIVE Urine nitrite detection by test strip NEGATIVE NEGATIVE Urine total bilirubin detection by test strip NEGA TIVE NEGATIVE Urine urobilinogen measurement by automated test strip (mass/volume) 0.2 mg/dL < = 1.0 Urine leukocyte esterase detection by dipstick NEG ATIVE NEGATIVE Automated urine sediment erythrocyte cou nt by microscopy (number/high power field) NONE NRG Automated urine sediment leukocyte count by microscopy (number/high power field) [HPF] NRG Bacteria detection in urine sediment by light microsco py TRACE NRG Squamous epithelial cells detection in u rine sediment by light microscopy 10-25 NRG Crystals detection in urine sediment by light microsco py PRESENT NRG Casts detection in urine sediment by light microscopy NONE NRG Mucus detection in urine sediment by light microscopy NEGATIVE NRG Complete urinalysis with reflex to culture NO NRG Amorphous sediment detection in urine sediment by ligh t microscopy FEW GRIS URATES NRG Capillary blood glucose measurement by g lucometer (mass/volume) - 09/05/19 23:54 Capillary blood glucose measurement by glucometer (mas s/volume) 359 mg/dL 70-110 Arterial blood gas measurement - 0 02:50 Blood pCO2 45 mm[Hg] 35-45 Blood pO2 101 mm[Hg] 79-93 Arterial blood bicarbonate measurement (moles/volume) 30 mmol/L 23-27 Arterial blood base excess by calculation 6.0 mmol /L -2.5-2.5 Arterial blood oxygen saturation measurement 99 % 94-100 * Inhaled oxygen flow rate 30% NRG Arterial blood pH measurement with patient temperature correction 7.44 7.37-7.43 Arterial blood carbon dioxide, total measurement (mole s/volume) 31.5 mmol/L 21.0-31.0 Body site LEFT ARTLINE NRG Assessment of wrist artery patency prior to arterial p uncture POSITIVE NRG Setting of ventilation mode YES NR G Measurement of body temperature 36.8 NRG Complete blood count (CBC) with automate d white blood cell (WBC) differential - 09/06/19 02:50 Blood leukocytes automated count (number/volume) 22.1 10*3/uL 4.3-11.0 Blood erythrocytes automated count (number/volume) 4.26 10*6/uL 4.35-5.85 Venous blood hemoglobin measurement (mass/volume) 10.7 g/dL 13.3-17.7 Blood hematocrit (volume fraction) 34 % 40-54 Automated erythrocyte mean corpuscular volume 79 [ foz_us] 80-99 Automated erythrocyte mean corpuscular h emoglobin (mass per erythrocyte) 25 pg 25-34 Automated erythrocyte mean corpuscular h emoglobin concentration measurement (mass/volume) 32 g/dL 32-36 Automated erythrocyte distribution width ratio 18. 3 % 10.0- 14.5 Automated blood platelet count (count/volume) 559 10*3/uL 130-400 Automated blood platelet mean volume measurement 9.0 [foz_us] 7.4-10.4 Automated blood neutrophils/100 leukocytes 87 % 42-75 Automated blood lymphocytes/100 leukocytes 4 % 12-44 Blood monocytes/100 leukocytes 7 % 0-12 Automated blood eosinophils/100 leukocytes 2 % 0-10 Automated blood basophils/100 leukocytes 0 % 0-10 Blood neutrophils automated count (number/volume) 19.1 10*3 1.8-7.8 Blood lymphocytes automated count (number/volume) 0.9 10*3 1.0-4.0 Blood monocytes automated count (number/volume) 1. 5 10*3 0.0-1.0 Automated eosinophil count 0.5 10*3/uL 0 .0-0.3 Automated blood basophil count (count/volume) 0.0 10*3/uL 0.0-0.1 Whole blood basic metabolic panel - 08/20 04/08 02:50 Serum or plasma sodium measurement (moles/volume) 141 mmol/L 135-145 Serum or plasma potassium measurement (moles/volume) 4.3 mmol/L 3.6-5.0 Serum or plasma chloride measurement (moles/volume) 107 mmol/L 98-107 Carbon dioxide 25 mmol/L 21-32 Serum or plasma anion gap determination (moles/volume) 9 mmol/L 5-14 Serum or plasma urea nitrogen measurement (mass/volume ) 32 mg/dL 7-18 Serum or plasma creatinine measurement (mass/volume) 0.97 mg/dL 0.60-1.30 Serum or plasma urea nitrogen/creatinine mass ratio 33 NRG Serum or plasma creatinine measurement w ith calculation of estimated glomerular filtration rate > NRG Serum or plasma glucose measurement (mass/volume) 328 mg/dL 70-105 Serum or plasma calcium measurement (mass/volume) 7.6 mg/dL 8.5-10.1 Serum or plasma phosphate measurement (m ass/volume) - 09/06/19 02:50 Serum or plasma phosphate measurement (mass/volume) 3.7 mg/dL 2.3-4.7 Magnesium - 09/06/19 02:50 Magnesium 2.2 mg/dL 1.6-2.4 Sputum Gram stain - 09/06/19 06:44 Sputum Gram stain No bacteria seen NRG Bacterial sputum culture - 09/06/19 06:4 4 FREE TEXT EXTERNAL GROWTH OF YEAST RPTD BY VCP 08/20 9 06:45 NRG QUANTITY OF GROWTH . NRG FREE TEXT ENTRY 2 CONFIRMED BY RML 09/07 13:05 NRG Bacterial sputum culture USUAL RESP NRG Methicillin resistant Staphylococcus aur eus (MRSA) screening culture - 09/06/19 06:45 Methicillin resistant Staphylococcus aureus (MRSA) scr eening culture NEG NRG Gram stain microscopy - 09/06/19 06:50 Gram stain microscopy No bacteria seen NRG Gram stain microscopy - 09/06/19 06:50 Gram stain microscopy No bacteria seen NRG Bacterial body fluid culture - 09/06/19 06:50 Bacterial body fluid culture NG N RG Bacterial body fluid culture - 09/06/19 06:50 Bacterial body fluid culture NG N RG Blood lactic acid measurement (moles/vol ume) - 09/06/19 07:10 Blood lactic acid measurement (moles/volume) 1.25 mmol/L 0.50-2.00 Bacterial blood culture - 09/06/19 07:10 Bacterial blood culture NG NRG Bacterial blood culture - 09/06/19 07:20 Bacterial blood culture NG NRG Arterial blood gas measurement - 0 07:59 Blood pCO2 49 mm[Hg] 35-45 Blood pO2 61 mm[Hg] 79-93 Arterial blood bicarbonate measurement (moles/volume) 31 mmol/L 23-27 Arterial blood base excess by calculation 6.8 mmol /L -2.5-2.5 Arterial blood oxygen saturation measurement 88 % 94-100 * Inhaled oxygen flow rate 21 NRG Arterial blood pH measurement with patient temperature correction 7.43 7.37-7.43 Arterial blood carbon dioxide, total measurement (mole s/volume) 32.6 mmol/L 21.0-31.0 Body site L.RADIAL NRG Assessment of wrist artery patency prior to arterial p uncture ART LINE NRG Setting of ventilation mode YES NR G Measurement of body temperature 37.6 NRG Capillary blood glucose measurement by g lucometer (mass/volume) - 09/06/19 11:40 Capillary blood glucose measurement by glucometer (mas s/volume) 167 mg/dL 70-110 Capillary blood glucose measurement by g lucometer (mass/volume) - 09/06/19 15:16 Capillary blood glucose measurement by glucometer (mas s/volume) 169 mg/dL 70-110 Capillary blood glucose measurement by g lucometer (mass/volume) - 09/06/19 19:46 Capillary blood glucose measurement by glucometer (mas s/volume) 232 mg/dL 70-110 Capillary blood glucose measurement by g lucometer (mass/volume) - 09/07/19 00:25 Capillary blood glucose measurement by glucometer (mas s/volume) 195 mg/dL 70-110 Complete blood count (CBC) with automate d white blood cell (WBC) differential - 09/07/19 03:15 Blood leukocytes automated count (number/volume) 18.7 10*3/uL 4.3-11.0 Blood erythrocytes automated count (number/volume) 3.68 10*6/uL 4.35-5.85 Venous blood hemoglobin measurement (mass/volume) 9.2 g/dL 13.3-17.7 Blood hematocrit (volume fraction) 30 % 40-54 Automated erythrocyte mean corpuscular volume 80 [ foz_us] 80-99 Automated erythrocyte mean corpuscular h emoglobin (mass per erythrocyte) 25 pg 25-34 Automated erythrocyte mean corpuscular h emoglobin concentration measurement (mass/volume) 31 g/dL 32-36 Automated erythrocyte distribution width ratio 18. 5 % 10.0- 14.5 Automated blood platelet count (count/volume) 374 10*3/uL 130-400 Automated blood platelet mean volume measurement 9.2 [foz_us] 7.4-10.4 Automated blood neutrophils/100 leukocytes 80 % 42-75 Automated blood lymphocytes/100 leukocytes 6 % 12-44 Blood monocytes/100 leukocytes 8 % 0-12 Automated blood eosinophils/100 leukocytes 6 % 0-10 Automated blood basophils/100 leukocytes 0 % 0-10 Blood neutrophils automated count (number/volume) 14.8 10*3 1.8-7.8 Blood lymphocytes automated count (number/volume) 1.2 10*3 1.0-4.0 Blood monocytes automated count (number/volume) 1. 5 10*3 0.0-1.0 Automated eosinophil count 1.1 10*3/uL 0 .0-0.3 Automated blood basophil count (count/volume) 0.1 10*3/uL 0.0-0.1 Arterial blood gas measurement - 0 03:15 Blood pCO2 47 mm[Hg] 35-45 Blood pO2 66 mm[Hg] 79-93 Arterial blood bicarbonate measurement (moles/volume) 30 mmol/L 23-27 Arterial blood base excess by calculation 6.0 mmol /L -2.5-2.5 Arterial blood oxygen saturation measurement 93 % 94-100 * Inhaled oxygen flow rate 21% NRG Arterial blood pH measurement with patient temperature correction 7.43 7.37-7.43 Arterial blood carbon dioxide, total measurement (mole s/volume) 31.8 mmol/L 21.0-31.0 Body site LEFT ARTLINE NRG Assessment of wrist artery patency prior to arterial p uncture POSITIVE NRG Setting of ventilation mode YES NR G Measurement of body temperature 37 NRG Whole blood basic metabolic panel - 08/20 05/09 03:15 Serum or plasma sodium measurement (moles/volume) 143 mmol/L 135-145 Serum or plasma potassium measurement (moles/volume) 4.1 mmol/L 3.6-5.0 Serum or plasma chloride measurement (moles/volume) 110 mmol/L 98-107 Carbon dioxide 26 mmol/L 21-32 Serum or plasma anion gap determination (moles/volume) 7 mmol/L 5-14 Serum or plasma urea nitrogen measurement (mass/volume ) 20 mg/dL 7-18 Serum or plasma creatinine measurement (mass/volume) 0.70 mg/dL 0.60-1.30 Serum or plasma urea nitrogen/creatinine mass ratio 29 NRG Serum or plasma creatinine measurement w ith calculation of estimated glomerular filtration rate > NRG Serum or plasma glucose measurement (mass/volume) 207 mg/dL 70-105 Serum or plasma calcium measurement (mass/volume) 7.0 mg/dL 8.5-10.1 Serum or plasma phosphate measurement (m ass/volume) - 09/07/19 03:15 Serum or plasma phosphate measurement (mass/volume) 3.0 mg/dL 2.3-4.7 Magnesium - 09/07/19 03:15 Magnesium 2.0 mg/dL 1.6-2.4 Serum or plasma triglyceride measurement (mass/volume) - 09/07/19 03:15 Serum or plasma triglyceride measurement (mass/volume) 129 mg/dL <150 Capillary blood glucose measurement by g lucometer (mass/volume) - 09/07/19 07:23 Capillary blood glucose measurement by glucometer (mas s/volume) 195 mg/dL 70-110 Capillary blood glucose measurement by g lucometer (mass/volume) - 09/07/19 11:19 Capillary blood glucose measurement by glucometer (mas s/volume) 131 mg/dL 70-110 Capillary blood glucose measurement by g lucometer (mass/volume) - 09/07/19 15:39 Capillary blood glucose measurement by glucometer (mas s/volume) 94 mg/dL 70-110 Capillary blood glucose measurement by g lucometer (mass/volume) - 09/07/19 19:29 Capillary blood glucose measurement by glucometer (mas s/volume) 89 mg/dL 70-110 Vancomycin trough - 09/07/19 20:00 Vancomycin trough 8.9 ug/mL 10.0-20.0 Capillary blood glucose measurement by g lucometer (mass/volume) - 09/07/19 22:53 Capillary blood glucose measurement by glucometer (mas s/volume) 86 mg/dL 70-110 Complete blood count (CBC) with automate d white blood cell (WBC) differential - 09/08/19 03:28 Blood leukocytes automated count (number/volume) 15.3 10*3/uL 4.3-11.0 Blood erythrocytes automated count (number/volume) 3.52 10*6/uL 4.35-5.85 Venous blood hemoglobin measurement (mass/volume) 8.8 g/dL 13.3-17.7 Blood hematocrit (volume fraction) 28 % 40-54 Automated erythrocyte mean corpuscular volume 80 [ foz_us] 80-99 Automated erythrocyte mean corpuscular h emoglobin (mass per erythrocyte) 25 pg 25-34 Automated erythrocyte mean corpuscular h emoglobin concentration measurement (mass/volume) 31 g/dL 32-36 Automated erythrocyte distribution width ratio 18. 4 % 10.0- 14.5 Automated blood platelet count (count/volume) 326 10*3/uL 130-400 Automated blood platelet mean volume measurement 9.5 [foz_us] 7.4-10.4 Automated blood neutrophils/100 leukocytes 81 % 42-75 Automated blood lymphocytes/100 leukocytes 6 % 12-44 Blood monocytes/100 leukocytes 8 % 0-12 Automated blood eosinophils/100 leukocytes 5 % 0-10 Automated blood basophils/100 leukocytes 0 % 0-10 Blood neutrophils automated count (number/volume) 12.3 10*3 1.8-7.8 Blood lymphocytes automated count (number/volume) 1.0 10*3 1.0-4.0 Blood monocytes automated count (number/volume) 1. 2 10*3 0.0-1.0 Automated eosinophil count 0.7 10*3/uL 0 .0-0.3 Automated blood basophil count (count/volume) 0.1 10*3/uL 0.0-0.1 Whole blood basic metabolic panel - 08/21 03:28 Serum or plasma sodium measurement (moles/volume) 144 mmol/L 135-145 Serum or plasma potassium measurement (moles/volume) 3.6 mmol/L 3.6-5.0 Serum or plasma chloride measurement (moles/volume) 110 mmol/L 98-107 Carbon dioxide 27 mmol/L 21-32 Serum or plasma anion gap determination (moles/volume) 7 mmol/L 5-14 Serum or plasma urea nitrogen measurement (mass/volume ) 18 mg/dL 7-18 Serum or plasma creatinine measurement (mass/volume) 0.59 mg/dL 0.60-1.30 Serum or plasma urea nitrogen/creatinine mass ratio 31 NRG Serum or plasma creatinine measurement w ith calculation of estimated glomerular filtration rate > NRG Serum or plasma glucose measurement (mass/volume) 103 mg/dL 70-105 Serum or plasma calcium measurement (mass/volume) 7.3 mg/dL 8.5-10.1 Serum or plasma phosphate measurement (m ass/volume) - 09/08/19 03:28 Serum or plasma phosphate measurement (mass/volume) 3.0 mg/dL 2.3-4.7 Magnesium - 09/08/19 03:28 Magnesium 2.1 mg/dL 1.6-2.4 Manual absolute plasma cell count - 08/21 03:28 Blood monocytes/100 leukocytes 10 % NRG Manual blood segmented neutrophils/100 leukocytes 80 % NRG Manual blood lymphocytes/100 leukocytes 6 % NRG Manual eosinophils/100 leukocytes in nose 4 % NRG Capillary blood glucose measurement by g lucometer (mass/volume) - 09/08/19 08:14 Capillary blood glucose measurement by glucometer (mas s/volume) 109 mg/dL 70-110 Creatinine body fluid - 09/08/19 10:25 Creatinine body fluid 74.43 mg/dL NRG Capillary blood glucose measurement by g lucometer (mass/volume) - 09/08/19 12:11 Capillary blood glucose measurement by glucometer (mas s/volume) 117 mg/dL 70-110 Capillary blood glucose measurement by g lucometer (mass/volume) - 09/08/19 15:50 Capillary blood glucose measurement by glucometer (mas s/volume) 118 mg/dL 70-110 Capillary blood glucose measurement by g lucometer (mass/volume) - 09/08/19 19:33 Capillary blood glucose measurement by glucometer (mas s/volume) 171 mg/dL 70-110 Capillary blood glucose measurement by g lucometer (mass/volume) - 09/08/19 23:56 Capillary blood glucose measurement by glucometer (mas s/volume) 179 mg/dL 70-110 Capillary blood glucose measurement by g lucometer (mass/volume) - 09/09/19 03:43 Capillary blood glucose measurement by glucometer (mas s/volume) 187 mg/dL 70-110 Automated blood complete blood count (he mogram) panel - 09/09/19 05:45 Blood leukocytes automated count (number/volume) 11.2 10*3/uL 4.3-11.0 Blood erythrocytes automated count (number/volume) 3.16 10*6/uL 4.35-5.85 Venous blood hemoglobin measurement (mass/volume) 8.1 g/dL 13.3-17.7 Blood hematocrit (volume fraction) 26 % 40-54 Automated erythrocyte mean corpuscular volume 84 [ foz_us] 80-99 Automated erythrocyte mean corpuscular h emoglobin (mass per erythrocyte) 26 pg 25-34 Automated erythrocyte mean corpuscular h emoglobin concentration measurement (mass/volume) 31 g/dL 32-36 Automated erythrocyte distribution width ratio 19. 0 % 10.0- 14.5 Automated blood platelet count (count/volume) 341 10*3/uL 130-400 Automated blood platelet mean volume measurement 9.8 [foz_us] 7.4-10.4 Whole blood basic metabolic panel - 08/21 09/08 05:45 Serum or plasma sodium measurement (moles/volume) 130 mmol/L 135-145 Serum or plasma chloride measurement (moles/volume) 102 mmol/L 98-107 Carbon dioxide 21 mmol/L 21-32 Serum or plasma anion gap determination (moles/volume) 7 mmol/L 5-14 Serum or plasma urea nitrogen measurement (mass/volume ) 16 mg/dL 7-18 Serum or plasma creatinine measurement (mass/volume) 0.84 mg/dL 0.60-1.30 Serum or plasma urea nitrogen/creatinine mass ratio 19 NRG Serum or plasma creatinine measurement w ith calculation of estimated glomerular filtration rate > NRG Serum or plasma calcium measurement (mass/volume) 7.1 mg/dL 8.5-10.1 Serum or plasma phosphate measurement (m ass/volume) - 09/09/19 05:45 Serum or plasma phosphate measurement (mass/volume) 9.4 mg/dL 2.3-4.7 Magnesium - 09/09/19 05:45 Magnesium 3.0 mg/dL 1.6-2.4 Serum iron and total iron binding capaci ty panel - 09/09/19 05:45 TIBC 121 % 280-380 UIBC 98 % 55-450 Serum or plasma iron measurement (mass/volume) 23 % 40-180 Total iron binding capacity and transferrin saturation measurement 19 % 15-50 Serum or plasma ferritin measurement (mass/volume) 141.1 % 32.0-356.0 Whole blood basic metabolic panel - 08/21 09/08 06:45 Serum or plasma sodium measurement (moles/volume) 134 mmol/L 135-145 Serum or plasma chloride measurement (moles/volume) 104 mmol/L 98-107 Carbon dioxide 23 mmol/L 21-32 Serum or plasma anion gap determination (moles/volume) 7 mmol/L 5-14 Serum or plasma urea nitrogen measurement (mass/volume ) 15 mg/dL 7-18 Serum or plasma creatinine measurement (mass/volume) 0.71 mg/dL 0.60-1.30 Serum or plasma urea nitrogen/creatinine mass ratio 21 NRG Serum or plasma creatinine measurement w ith calculation of estimated glomerular filtration rate > NRG Serum or plasma calcium measurement (mass/volume) 7.0 mg/dL 8.5-10.1 Serum or plasma phosphate measurement (m ass/volume) - 09/09/19 06:45 Serum or plasma phosphate measurement (mass/volume) 6.9 mg/dL 2.3-4.7 Magnesium - 09/09/19 06:45 Magnesium 2.6 mg/dL 1.6-2.4 Whole blood basic metabolic panel - 08/21 09/08 07:43 Serum or plasma sodium measurement (moles/volume) 144 mmol/L 135-145 Serum or plasma potassium measurement (moles/volume) 3.6 mmol/L 3.6-5.0 Serum or plasma chloride measurement (moles/volume) 109 mmol/L 98-107 Carbon dioxide 29 mmol/L 21-32 Serum or plasma anion gap determination (moles/volume) 6 mmol/L 5-14 Serum or plasma urea nitrogen measurement (mass/volume ) 17 mg/dL 7-18 Serum or plasma creatinine measurement (mass/volume) 0.58 mg/dL 0.60-1.30 Serum or plasma urea nitrogen/creatinine mass ratio 29 NRG Serum or plasma creatinine measurement w ith calculation of estimated glomerular filtration rate > NRG Serum or plasma glucose measurement (mass/volume) 156 mg/dL 70-105 Serum or plasma calcium measurement (mass/volume) 7.2 mg/dL 8.5-10.1 Serum or plasma phosphate measurement (m ass/volume) - 09/09/19 07:43 Serum or plasma phosphate measurement (mass/volume) 2.8 mg/dL 2.3-4.7 Magnesium - 09/09/19 07:43 Magnesium 2.0 mg/dL 1.6-2.4 Capillary blood glucose measurement by g lucometer (mass/volume) - 09/09/19 09:04 Capillary blood glucose measurement by glucometer (mas s/volume) 175 mg/dL 70-110 Capillary blood glucose measurement by g lucometer (mass/volume) - 09/09/19 12:08 Capillary blood glucose measurement by glucometer (mas s/volume) 142 mg/dL 70-110 Capillary blood glucose measurement by g lucometer (mass/volume) - 09/09/19 15:31 Capillary blood glucose measurement by glucometer (mas s/volume) 161 mg/dL 70-110 CMP - 10/16/19 11:25 GLUCOSE 155 mg/dL 65-99 UREA NITROGEN (BUN) 9 mg/dL 7-25 CREATININE 0.74 mg/dL 0.70-1.18 eGFR NON-AFR. MALIAN 92 mL/min/1.73m2 > OR = 60 eGFR 106 mL/min/1.73m2 > OR = 60 BUN/CREATININE RATIO NOT APPLICABLE (calc) 6-22 SODIUM 140 mmol/L 135-146 POTASSIUM 4.8 mmol/L 3.5-5.3 CHLORIDE 100 mmol/L 98-110 CARBON DIOXIDE 32 mmol/L 20-32 CALCIUM 9.5 mg/dL 8.6-10.3 PROTEIN, TOTAL 6.8 g/dL 6.1-8.1 ALBUMIN 4.0 g/dL 3.6-5.1 GLOBULIN 2.8 g/dL (calc) 1.9-3.7 ALBUMIN/GLOBULIN RATIO 1.4 (calc) 1.0-2. 5 BILIRUBIN, TOTAL 0.3 mg/dL 0.2-1.2 ALKALINE PHOSPHATASE 112 U/L 35-144 AST 14 U/L 10-35 ALT 11 U/L 9-46 CBC w/MANUAL DIFF - 10/16/19 11:25 WHITE BLOOD CELL COUNT 7.6 Thousand/uL 3 .8-10.8 RED BLOOD CELL COUNT 4.92 Million/uL 4.2 0-5.80 HEMOGLOBIN 12.4 g/dL 13.2-17.1 HEMATOCRIT 39.5 % 38.5-50.0 MCV 80.3 fL 80.0-100.0 MCH 25.2 pg 27.0-33.0 MCHC 31.4 g/dL 32.0-36.0 RDW 15.8 % 11.0-15.0 PLATELET COUNT TNP Thousand/uL NRG ABSOLUTE NEUTROPHILS 4910 cells/uL 1500- 7800 ABSOLUTE MONOCYTES 388 cells/uL 200-950 ABSOLUTE EOSINOPHILS 616 cells/uL 15-500 ABSOLUTE BASOPHILS 0 cells/uL 0-200 NEUTROPHILS 64.6 % NRG LYMPHOCYTES 21.2 % NRG MONOCYTES 5.1 % NRG EOSINOPHILS 8.1 % NRG BASOPHILS 0 % NRG ABSOLUTE BAND NEUTROPHILS 76 cells/uL 0- 750 ABSOLUTE LYMPHOCYTES 1611 cells/uL 850-3 900 BAND NEUTROPHILS 1.0 % NRG CBC MORPHOLOGY NORMAL COMMENT(S) NRG A1C - 10/16/19 11:25 HEMOGLOBIN A1c 7.4 % of total Hgb <5.7 Complete urinalysis with reflex to cultu re - 11/12/19 16:07 Urine color determination YELLOW NRG Urine clarity determination CLEAR NR G Urine pH measurement by test strip 5.5 5-9 Specific gravity of urine by test strip 1.010 1.016-1.022 Urine protein assay by test strip, semi-quantitative NEGATIVE NEGATIVE Urine glucose detection by automated test strip NE GATIVE NEGATIVE Erythrocytes detection in urine sediment by light micr oscopy 3+ NEGATIVE Urine ketones detection by automated test strip NE GATIVE NEGATIVE Urine nitrite detection by test strip NEGATIVE NEGATIVE Urine total bilirubin detection by test strip NEGA TIVE NEGATIVE Urine urobilinogen measurement by automated test strip (mass/volume) 0.2 mg/dL < = 1.0 Urine leukocyte esterase detection by dipstick 1+ NEGATIVE Automated urine sediment erythrocyte cou nt by microscopy (number/high power field) [HPF] NRG Automated urine sediment leukocyte count by microscopy (number/high power field) [HPF] NRG Bacteria detection in urine sediment by light microsco py TRACE NRG Squamous epithelial cells detection in u rine sediment by light microscopy 0-2 NRG Crystals detection in urine sediment by light microsco py NONE NRG Casts detection in urine sediment by light microscopy NONE NRG Mucus detection in urine sediment by light microscopy NEGATIVE NRG Complete urinalysis with reflex to culture YES NRG Encounters ACCT No. Visit Date/Time Discharge Status Pt. Type Provider Facility Loc./Unit Complaint [id number] 10/16/2019 10:40:00 10/16/2019 23:59: 59 CLS Outpatient KIANNA BARAJAS APRN [facility] [id number] 10/16/2019 10:40:00 Document Registration [id number] 07/30/2019 14:40:00 Document Registration [id number] 07/14/2019 10:00:00 Document Registration [id number] 04/03/2019 10:20:00 Document Registration [id number] 03/28/2019 09:00:00 Document Registration [id number] 12/25/2018 10:20:00 Document Registration [id number] 10/30/2017 10:40:00 Document Registration [id number] 11/11/2019 05:41:00 020 12:56:00 DIS Outpatient GRIFFIN GALO VIDAL [facility] PREOP COLON CANCER [id number] 11/07/2019 09:57:00 23:59:59 CLS Outpatient HONG DUKES MD [facility] RAD LT URETERAL LACERATION [id number] 10/28/2019 13:40:00 23:59:59 CLS Preadmit GALO GRIFFIN DO [facility] ENDO HX OF COLON [place] [id number] 10/21/2019 05:38:00 23:59:59 CLS Outpatient GALO GRIFFIN DO [facility] PREOP COLONOSCOPY [id number] 10/17/2019 10:52:00 23:59:59 CLS Outpatient HONG DUKES MD [facility] RAD LT URETERAL LACERATION [id number] 08/28/2019 09:45:00 17:10:00 DIS Inpatient GLAO GRIFFIN DO [facility] 4TH COLON CANCER [id number] 08/18/2019 14:04:00 14:38:00 DIS Outpatient GALO GRIFFIN DO [facility] PREOP COLON CANCER [id number] 08/11/2019 14:44:00 23:59:59 CLS Outpatient GALO GRIFFIN DO [facility] RAD COLON CA [id number] 02/12/2019 09:35:00 23:59:59 CLS Outpatient KIANNA PERES MD [facility] WOUNDCARE [id number] 02/05/2019 12:43:00 23:59:59 CLS Outpatient KIANNA PERES MD [facility] WOUNDCARE [id number] 01/29/2019 09:38:00 23:59:59 CLS Outpatient KIANNA PERES MD [facility] WOUNDCARE [id number] 01/22/2019 09:26:00 23:59:59 CLS Outpatient KIANNA PERES MD [facility] WOUNDCARE [id number] 01/15/2019 09:44:00 019 23:59:59 CLS Outpatient KIANNA PERES MD [facility] WOUNDCARE [id number] 2019 08:40:00 019 23:59:59 CLS Outpatient KIANNA PERES MD [facility] WOUNDCARE [id number] 03/05/2018 00:09:00 018 23:59:59 CLS Preadmit DEDRA MARQUIS R [employer] [facility] LAB T37.0X5A [id number] 12/25/2017 10:53:00 00:01:00 DIS Outpatient DEDRA MARQUIS R [employer] [facility] LAB T37.0X5A [id number] 01/22/2018 08:44:00 018 23:59:59 CLS Outpatient DEDRA, MARQUIS R [employer] [facility] WOUNDCARE [id number] 01/15/2018 08:58:00 018 23:59:59 CLS Outpatient DEDRA, MARQUIS R [employer] [facility] WOUNDCARE [id number] 01/08/2018 08:41:00 018 23:59:59 CLS Outpatient DEDRA, MARQUIS R [employer] [facility] WOUNDCARE [id number] 01/01/2018 08:38:00 018 23:59:59 CLS Outpatient DEDRA, MARQUIS R [employer] [facility] WOUNDCARE [id number] 12/25/2017 10:09:00 018 23:59:59 CLS Outpatient DEDRA, MARQUIS R [employer] [facility] WOUNDCARE [id number] 12/17/2017 12:40:00 018 23:59:59 CLS Outpatient DEDRA, MARQUIS R [employer] [facility] WOUNDCARE [id number] 12/11/2017 09:27:00 018 23:59:59 CLS Outpatient DEDRA, MARQUIS R [employer] [facility] WOUNDCARE [id number] 12/04/2017 09:53:00 018 23:59:59 CLS Outpatient MARQUIS COLMENARES [employer] [facility] WOUNDCARE [id number] 11/27/2017 10:01:00 018 23:59:59 CLS Outpatient MARQUIS COLMENARES [employer] [facility] WOUNDCARE [id number] 11/22/2017 14:01:00 018 23:59:59 CLS Outpatient MARQUIS COLMENARES [employer] [facility] WOUNDCARE [id number] 11/13/2017 10:49:00 23:59:59 CLS Outpatient MARQUIS COLMENARES [employer] [facility] WOUNDCARE [id number] 11/06/2017 13:00:00 018 16:21:00 DIS Inpatient BERNARD PAYTON DO [facility] 4TH BILAT LE CELLUL ITIS [id number] 11/06/2017 08:54:00 018 23:59:59 CLS Outpatient MARQUIS COLMENARES [employer] [facility] WOUNDCARE [id number] 11/17/2019 11:45:00 P EN Preadmit SCOTT LEI MD [facility] RAD COLON CA [id number] 11/13/2019 08:00:00 P EN Preadmit GALO GRIFFIN DO [facility] SDC COLON CANCER [id number] 11/12/2019 15:19:[address] Emergency BRET ARREDONDO MD [facility] ER RENAL FAILURE [id number] 11/12/2019 12:42:[address] Outpatient SCOTT LEI MD [facility] ONC
== END 2019-11-12 18:06 | disposition home or self-care (01) ==
LOC: EDUNIT# 15:18 → ER 15:19
DX: N13.9 Obstructive and reflux uropathy, unspecified (principal); N17.9 Acute kidney failure, unspecified; E78.00 Pure hypercholesterolemia, unspecified; I10 Essential (primary) hypertension; N40.0 Benign prostatic hyperplasia without lower urinary tract symptoms; C18.9 Malignant neoplasm of colon, unspecified; Z92.21 Personal history of antineoplastic chemotherapy; Z89.511 Acquired absence of right leg below knee; Z89.512 Acquired absence of left leg below knee
CPT/HCPCS: 51702; 74176; 81000; 87088

== ENCOUNTER → 2019-11-17 | Outpatient (CLI) | payer MEDICARE, OTHER ==
--- NOTE | 2019-11-17 12:07 | Diagnostic Imaging Report ---
PROCEDURE: CT chest without contrast. TECHNIQUE: Multiple contiguous axial images were obtained through the chest without the use of intravenous contrast. Auto Exposure Controls were utilized during the CT exam to meet ALARA standards for radiation dose reduction. DATE: November 17, 2019. COMPARISON: CT chest September 05, 2019. CT chest, abdomen and pelvis August 11, 2019. INDICATION: 74-year-old male, history of colon cancer. PROCEDURE: Axial noncontrasted CT images of the chest. Noncontrasted limits the evaluation of the mediastinum and vascular structures. FINDINGS: There is a 5-6 mm reticulonodular opacity in the right middle lobe on axial image 88. This is not present on August 11, 2019. There is a similar-appearing inferiorly linear opacity in the left lingula on axial image 100 most likely relating to atelectasis or scarring. There is more prominent atelectasis or scarring in this location on prior CT of August 11, 2019. There is a 3 mm calcified left lower lobe granuloma. There is a 3 mm noncalcified left lower lobe pulmonary nodule on axial image 85 which is not previously seen. There previously was more consolidation in the left lower lobe on September 05, 2019. There is no pneumothorax. There is no pleural effusion. The central airways are patent. The heart is not enlarged. There is no pericardial effusion. There are coronary artery calcifications and additional areas of atherosclerotic disease. There are calcified mediastinal and hilar lymph nodes likely relating to sequela of prior granulomatous disease. There is no abnormally enlarged noncalcified mediastinal or axillary lymph node which meets CT size criteria for adenopathy. There is low-attenuation right thyroid nodule measuring 10 mm in size on axial image 6. There is a low-attenuation lesion in the left lobe of the liver on axial image 144 measuring 12 mm in size with internal attenuation diagnostic for a benign cyst. There is fatty replacement of the pancreatic parenchyma. There are multilevel degenerative changes of the spine. IMPRESSION: 1. Subcentimeter potential pulmonary nodules. These are not well seen on comparison exam. Recommend followup CT chest in 3-6 months to evaluate for stability. 2. Resolution of prior airspace consolidative process. Dictated by: Dictated on workstation # [id number]
== END ==
LOC: RAD 10:54
PROVIDERS: ATTEND Internal Medicine Hematology & Oncology
DX: C18.6 Malignant neoplasm of descending colon (principal); R91.8 Other nonspecific abnormal finding of lung field
CPT/HCPCS: 71250

== ENCOUNTER 2019-11-21 00:57 | Emergency (ER) | payer MEDICARE, OTHER ==
[~2019-11-21] VITALS: Ht 187 cm; Wt 88.0 kg
--- OUTSIDE RECORDS SUMMARY | 2019-11-21 01:04 | XMS REPORT ---
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 Active 902556628 Problem Malignant neoplasm of descending colon C18.6 Active 869075803 Problem Venous insufficiency (chronic) (peripheral) I87.2 Active 90013330 Problem Type 2 diabetes mellitus wit h diabetic peripheral angiopathy without gangrene E11.51 Active 397068903 Problem Dermatitis due to unspecified substance taken internally L27.9 Active 95361963 Problem 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 Active 150814654 ALLERGIES No Information ENCOUNTERS Encounter Location Date Diagnosis [facility] [id number] [place] [id number] Oct, [place] [address] [place], [place] [id number] [place] [phone] Oct, Lumbosacral pain M54.5 ; Acute left lumb ar radiculopathy M54.16 ; Left hip pain M25.552 ; Heart murmur R01.1 ; 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 ; Essential hypertension I10 and 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 [place] [address] [place] [id number] [place] [phone] Oct, [facility] [id number] [place] [phone] Oct, [place] [address] [place] [id number] [place] [phone] Oct, [facility] [address] [place] [id number] [place] [phone] Sep, Malignant neoplasm of descending colon C 18.6 ; Accidental puncture and laceration of a genitourinary system organ or structure during other procedure N99.72 ; Heart murmur R01.1 ; Type 2 diabetes mellitus with diabetic peripheral angiopathy without gangrene E11.51 and Urinary catheter in place Z96.0 [facility] [id number] [place] [address], [place] [address] Sep, [facility] [address] [place] [id number] [place] [phone] Sep, [facility] [address] [place] [id number] [place] [phone] Sep, [facility] [address] [place] [id number] [place] [phone] Sep, [facility] [id number] [place] [address], [place] [address] Sep, [facility] [address] [place] [id number] [place] [phone] Aug, [facility] [id number] [place] [phone] Aug, [facility] [address] [place] [id number] [place] [phone] Jul, Malignant neoplasm of descending colon C 18.6 [facility] [address] [facility] [place] [address] Jul, Blood in stool K92.1 [facility] [address] [place] [id number] [place] [phone] Jul, Anemia, unspecified type D64.9 [facility] [address] [place] [id number] [place] [phone] Jul, Essential hypertension I10 and Anemia, u nspecified type D64.9 [place] [address] [place] [address] Jul, [place] [address] [place] [id number] Jul, [place] [address] [place] [address] Jun, Anemia, unspecified type D64.9 [place] [address] [place], [place] [id number] Jun, Type 2 diabetes mellitus with diabetic p eripheral angiopathy without gangrene E11.51 ; Essential hypertension I10 ; Heart murmur R01.1 ; 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 ; Acute URI J06.9 and Anemia, unspecified type D64.9 [place] [address] [place] [address] May, Encounter for immunization Z23 [place] [address] [place] [id number] May, Type 2 diabetes mellitus with diabetic p eripheral angiopathy without gangrene E11.51 ; Essential hypertension I10 ; Heart murmur R01.1 ; 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19 [place] [address] [place] [address] Mar, Essential hypertension I10 [facility] [address] [id number] [address] Jan, Type 2 diabetes mellitus with diabetic p eripheral angiopathy without gangrene E11.51 [facility] [address] [id number] [address] Jan, [facility] [address] [id number] [address] Jan, Type 2 diabetes mellitus with diabetic p eripheral angiopathy without gangrene E11.51 [facility] [address] [id number], [place] [address] December, [facility] [address] [id number] [address] December, Type 2 diabetes mellitus with diabetic p eripheral angiopathy without gangrene E11.51 ; Heart murmur R01.1 ; 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 [facility] [address] [id number] [address] December, Type 2 diabetes mellitus with diabetic p eripheral angiopathy without gangrene E11.51 ; Essential hypertension I10 and Heart murmur R01.1 [facility] [address] [id number] [address] December, [facility] [address] [id number] [address] Nov, Encounter for Medicare annual wellness e xam Z00.00 ; Type 2 diabetes mellitus with diabetic peripheral angiopathy without gangrene E11.51 ; 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.4 ; Essential hypertension I10 ; Venous insufficiency (chronic) (peripheral) I87.2 ; 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 and 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 [facility] [address] [facility] [id number] [address] Nov, Type 2 diabetes mellitus with diabetic p eripheral angiopathy without gangrene E11.51 [facility] [address] [id number] [place] [address] Oct, Type 2 diabetes mellitus with diabetic p eripheral angiopathy without gangrene E11.51 [facility] [address] [facility] [address] [id number], [place] [address] 05 Sep, 2018 Type 2 diabetes mellitus with diabetic p eripheral angiopathy without gangrene E11.51 ; Essential hypertension I10 ; Heart murmur R01.1 ; 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 [id number] [address] [place] [address] Aug, Type 2 diabetes mellitus wit h diabetic peripheral angiopathy without gangrene E11.51 [facility] [address] [id number] [place] [id number] Jul, Type 2 diabetes mellitus with diabetic p eripheral angiopathy without gangrene E11.51 [facility] [address] [id number] [place] [id number] Jul, Type 2 diabetes mellitus with diabetic p eripheral angiopathy without gangrene E11.51 [facility] [id number] [place] [address] Jul, Type 2 diabetes mellitus with diabetic p eripheral angiopathy without gangrene E11.51 [facility] [address] [id number] [place] [id number] Jun, Type 2 diabetes mellitus with diabetic p eripheral angiopathy without gangrene E11.51 [facility] [address] [id number] [place] [id number] May, Encounter for immunization Z23 [facility] [address] [id number] [place] [id number] May, [facility] [address] [id number] [place] [id number] Apr, Type 2 diabetes mellitus with diabetic p eripheral angiopathy without gangrene E11.51 ; Essential hypertension I10 and Heart murmur R01.1 [place] [address] [id number] [place] [id number] Jan, Type 2 diabetes mellitus with diabetic p eripheral angiopathy without gangrene E11.51 [facility] [address] [id number] [place] [id number] December, Type 2 diabetes mellitus with diabetic p eripheral angiopathy without gangrene E11.51 ; 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 [id number] [address] [place] [address] Oct, [facility] [address] [id number] [place] [id number] Oct, [facility] [address] [facility] [id number] [place] [id number] Oct, Type 2 diabetes mellitus with diabetic p eripheral angiopathy without gangrene E11.51 [facility] [address] [id number] [place] [id number] Oct, Type 2 diabetes mellitus with diabetic p eripheral angiopathy without gangrene E11.51 [facility] [address] [id number] [place] [id number] 13 Oct, 2017 Type 2 diabetes mellitus with diabetic p eripheral angiopathy without gangrene E11.51 ; senior living current use of insulin Z79.4 ; Heart [...] Start Date End Date Duration S víctor FreeStyle Test - In Vitro 2 times a day as directed 12h Nov, 90 days Active Novolin N 100 unit/ml Subcutaneous 2 times a day 33 units in am, 20 units pm 12h 90 days Active RESULTS No Results [...]
--- OUTSIDE RECORDS SUMMARY | 2019-11-21 01:06 | XMS REPORT | Continuity of Care Document ---
Author Organization Unknown Address Unknown Phone Unavailable Allergies Active Description Code Type Severity Reaction Onset Reported/Identified Relationship to Patient Clinical Status Yes No Known Drug Allergies [id number] Drug Allergy Unknown N/A 11/11/2019 Medications There is no data. Problems Date Dx Coded Attending Type Code Diagnosis Diagnosed By 11/07/2017 MARQUIS COLMENARES APRN Ot L03.116 CELLULITIS OF LEFT LOWER LIMB 11/07/2017 MARQUIS COLMENARES APRN Ot 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 11/09/2017 [facility] B[facility] VIDAL Ot E11.9 TYPE 2 DIABETES MELLITUS WITHOUT COMPLIC 11/[facility] Ot E78.00 PURE HYPERCHOLESTEROLEMIA, UNSPECIFIED 11/09/2017 [facility] B[facility] VIDAL Ot I10 ESSENTIAL (PRIMARY) HYPERTENSION 11/09/[facility] Ot L03.115 CELLULITIS OF RIGHT LOWER LIMB [facility] Ot L03.116 CELLULITIS OF LEFT LOWER LIMB 11/09/2017 [facility] VIDAL Ot N40.0 BENIGN PROSTATIC HYPERPLASIA WITHOUT LOW 11/09/2017 [facility] Ot T87.43 INFECTION OF AMPUTATION STUMP, RIGHT LOW 11/09/2017 [facility] BERNARD VIDAL Ot T87.44 INFECTION OF AMPUTATION STUMP, LEFT LOWE 11/09/2017 [facility] VID[facility] Ot 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 11/09/2017 BERNARD PAYTON DO Ot 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 RIGHT LEG BELOW KNEE 11/09/2017 [facility] Urb[facility] DO Ot 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 11/14/2017 MARQUIS COLMENARES APRN Ot B36.9 SUPERFICIAL MYCOSIS, UNSPECIFIED 11/14/2017 DEDRA, MARQUIS R CARPENTER'S ASSISTANT Ot L03.116 CELLULITIS OF LEFT LOWER LIMB 11/14/2017 DEDRA MARQUIS R CARPENTER'S ASSISTANT Ot L97.122 NON-PRESSURE CHRONIC ULCER OF LEFT THIGH 11/14/2017 MARQUIS COLMENARES R CARPENTER'S ASSISTANT Ot 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 11/22/2017 DEDRA MARQUIS R CARPENTER'S ASSISTANT Ot L03.116 CELLULITIS OF LEFT LOWER LIMB 11/22/2017 MARQUIS COLMENARES R CARPENTER'S ASSISTANT Ot 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 11/26/2017 MARQUIS COLMENARES R CARPENTER'S ASSISTANT Ot B36.9 SUPERFICIAL MYCOSIS, UNSPECIFIED 11/26/2017 DEDRA MARQUIS R CARPENTER'S ASSISTANT Ot L03.116 CELLULITIS OF LEFT LOWER LIMB 11/26/2017 DEDRA MARQUIS R CARPENTER'S ASSISTANT Ot L97.122 NON-PRESSURE CHRONIC ULCER OF LEFT THIGH 11/26/2017 DEDRA MARQUIS R CARPENTER'S ASSISTANT Ot 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 11/26/2017 MARQUIS COLMENARES R CARPENTER'S ASSISTANT Ot B36.9 SUPERFICIAL MYCOSIS, UNSPECIFIED 11/26/2017 MARQUIS COLMENARES R CARPENTER'S ASSISTANT Ot L03.116 CELLULITIS OF LEFT LOWER LIMB 11/26/2017 DEDRA MARQUIS R CARPENTER'S ASSISTANT Ot L97.122 NON-PRESSURE CHRONIC ULCER OF LEFT THIGH 11/26/2017 MARQUIS COLMENARES R CARPENTER'S ASSISTANT Ot 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 11/28/2017 MARQUIS COLMENARES R CARPENTER'S ASSISTANT Ot B36.9 SUPERFICIAL MYCOSIS, UNSPECIFIED 11/28/2017 DEDRA MARQUIS R CARPENTER'S ASSISTANT Ot L03.116 CELLULITIS OF LEFT LOWER LIMB 11/28/2017 DEDRA MARQUIS R CARPENTER'S ASSISTANT Ot L97.122 NON-PRESSURE CHRONIC ULCER OF LEFT THIGH 11/28/2017 DEDRA MARQUIS R CARPENTER'S ASSISTANT Ot 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 12/04/2017 DEDRA MARQUIS R CARPENTER'S ASSISTANT Ot L03.116 CELLULITIS OF LEFT LOWER LIMB 12/04/2017 MARQUIS COLMENARES R CARPENTER'S ASSISTANT Ot 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 12/05/2017 MARQUIS COLMENARES R CARPENTER'S ASSISTANT Ot B36.9 SUPERFICIAL MYCOSIS, UNSPECIFIED 12/05/2017 MARQUIS COLMENARSE R CARPENTER'S ASSISTANT Ot L03.116 CELLULITIS OF LEFT LOWER LIMB 12/05/2017 DEDRA, MARQUIS R CARPENTER'S ASSISTANT Ot L97.122 NON-PRESSURE CHRONIC ULCER OF LEFT THIGH 12/05/2017 DEDRA MARQUIS R CARPENTER'S ASSISTANT Ot 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 12/12/2017 MARQUIS COLMENARES R CARPENTER'S ASSISTANT Ot B36.9 SUPERFICIAL MYCOSIS, UNSPECIFIED 12/12/2017 DEDRA MARQUIS R CARPENTER'S ASSISTANT Ot L03.116 CELLULITIS OF LEFT LOWER LIMB 12/12/2017 DEDRA MARQUIS R CARPENTER'S ASSISTANT Ot L97.122 NON-PRESSURE CHRONIC ULCER OF LEFT THIGH 12/12/2017 MARQUIS COLMENARES R CARPENTER'S ASSISTANT Ot 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 12/18/2017 MARQUIS COLMENARES R CARPENTER'S ASSISTANT Ot B36.9 SUPERFICIAL MYCOSIS, UNSPECIFIED 12/18/2017 DEDRAMARQUIS R CARPENTER'S ASSISTANT Ot L03.116 CELLULITIS OF LEFT LOWER LIMB 12/18/2017 DEDRA MARQUIS R CARPENTER'S ASSISTANT Ot L97.121 NON-PRS CHRONIC ULCER OF LEFT THIGH LIMI 12/18/2017 DEDRA MARQUIS R CARPENTER'S ASSISTANT Ot L97.122 NON-PRESSURE CHRONIC ULCER OF LEFT THIGH 12/18/2017 MARQUIS COLMENARES R CARPENTER'S ASSISTANT Ot 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 12/18/2017 MARQUIS COLMENARES R CARPENTER'S ASSISTANT Ot B36.9 SUPERFICIAL MYCOSIS, UNSPECIFIED 12/18/2017 MARQUIS COLMENARES R CARPENTER'S ASSISTANT Ot L03.116 CELLULITIS OF LEFT LOWER LIMB 12/18/2017 DEDRA MARQUIS R CARPENTER'S ASSISTANT Ot L97.122 NON-PRESSURE CHRONIC ULCER OF LEFT THIGH 12/18/2017 MARQUIS COLMENAERS R CARPENTER'S ASSISTANT Ot 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 12/20/2017 MARQUIS COLMENARES R CARPENTER'S ASSISTANT Ot B36.9 SUPERFICIAL MYCOSIS, UNSPECIFIED 12/20/2017 DEDRA MARQUIS R CARPENTER'S ASSISTANT Ot L03.116 CELLULITIS OF LEFT LOWER LIMB 12/20/2017 DEDRA MARQUIS R CARPENTER'S ASSISTANT Ot L97.122 NON-PRESSURE CHRONIC ULCER OF LEFT THIGH 12/20/2017 MARQUIS COLMENARES R CARPENTER'S ASSISTANT Ot 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 12/21/2017 MARQUIS COLMENARES R CARPENTER'S ASSISTANT Ot B36.9 SUPERFICIAL MYCOSIS, UNSPECIFIED 12/21/2017 MARQUIS COLMENARES R CARPENTER'S ASSISTANT Ot L03.116 CELLULITIS OF LEFT LOWER LIMB 12/21/2017 DEDRA, MARQUIS R CARPENTER'S ASSISTANT Ot L97.121 NON-PRS CHRONIC ULCER OF LEFT THIGH LIMI 12/21/2017 DEDRA MARQUIS R CARPENTER'S ASSISTANT Ot L97.122 NON-PRESSURE CHRONIC ULCER OF LEFT THIGH 12/21/2017 MARQUIS COLMENARES CARPENTER'S ASSISTANT Ot 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 12/24/2017 MARQUIS COLMENARES CARPENTER'S ASSISTANT Ot B36.9 SUPERFICIAL MYCOSIS, UNSPECIFIED 12/24/2017 MARQUIS COLMENARES R CARPENTER'S ASSISTANT Ot L03.116 CELLULITIS OF LEFT LOWER LIMB 12/24/2017 DEDRA MARQUIS R CARPENTER'S ASSISTANT Ot L97.122 NON-PRESSURE CHRONIC ULCER OF LEFT THIGH 12/24/2017 DEDRA MARQUIS R CARPENTER'S ASSISTANT Ot 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 12/25/2017 MARQUIS COLMENARES R CARPENTER'S ASSISTANT Ot B36.9 SUPERFICIAL MYCOSIS, UNSPECIFIED 12/25/2017 DEDRA MARQUIS R CARPENTER'S ASSISTANT Ot L03.116 CELLULITIS OF LEFT LOWER LIMB 12/25/2017 MARQUIS COLMENARES CARPENTER'S ASSISTANT Ot L97.122 NON-PRESSURE CHRONIC ULCER OF LEFT THIGH 12/25/2017 MARQUIS COLMENARES R CARPENTER'S ASSISTANT Ot 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 12/27/2017 MARQUIS COLMENARES R CARPENTER'S ASSISTANT Ot B36.9 SUPERFICIAL MYCOSIS, UNSPECIFIED 12/27/2017 MARQUIS COLMENARES R CARPENTER'S ASSISTANT Ot L03.116 CELLULITIS OF LEFT LOWER LIMB 12/27/2017 DEDRA MARQUIS R CARPENTER'S ASSISTANT Ot L97.121 NON-PRS CHRONIC ULCER OF LEFT THIGH LIMI 12/27/2017 MARQUIS COLMENARES CARPENTER'S ASSISTANT Ot L97.122 NON-PRESSURE CHRONIC ULCER OF LEFT THIGH 12/27/2017 MARQUIS COLMENARES R CARPENTER'S ASSISTANT Ot 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 01/02/2018 MARQUIS COLMENARES R CARPENTER'S ASSISTANT Ot B36.9 SUPERFICIAL MYCOSIS, UNSPECIFIED 01/02/2018 MARQUIS COLMENARES R CARPENTER'S ASSISTANT Ot L03.116 CELLULITIS OF LEFT LOWER LIMB 01/02/2018 MARQUIS COLMENARES R CARPENTER'S ASSISTANT Ot L97.122 NON-PRESSURE CHRONIC ULCER OF LEFT THIGH 01/02/2018 MARQUIS COLMENARES R CARPENTER'S ASSISTANT Ot 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 01/03/2018 MARQUIS COLMENARES R CARPENTER'S ASSISTANT Ot B36.9 SUPERFICIAL MYCOSIS, UNSPECIFIED 01/03/2018 MARQUIS COLMENARES R CARPENTER'S ASSISTANT Ot L03.116 CELLULITIS OF LEFT LOWER LIMB 01/03/2018 MARQUIS COLMENARES CARPENTER'S ASSISTANT Ot L97.121 NON-PRS CHRONIC ULCER OF LEFT THIGH LIMI 01/03/2018 MARQUIS COLMENARES R CARPENTER'S ASSISTANT Ot L97.122 NON-PRESSURE CHRONIC ULCER OF LEFT THIGH 01/03/2018 MARQUIS COLMENARES R CARPENTER'S ASSISTANT Ot 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 01/07/2018 MARQUIS COLMENARES R CARPENTER'S ASSISTANT Ot B36.9 SUPERFICIAL MYCOSIS, UNSPECIFIED 01/07/2018 DEDRA MARQUIS R CARPENTER'S ASSISTANT Ot L03.116 CELLULITIS OF LEFT LOWER LIMB 01/07/2018 DEDRA MARQUIS R CARPENTER'S ASSISTANT Ot L97.122 NON-PRESSURE CHRONIC ULCER OF LEFT THIGH 01/07/2018 MARQUIS COLMENARES R CARPENTER'S ASSISTANT Ot 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 01/07/2018 MARQUIS COLMENARES CARPENTER'S ASSISTANT Ot B36.9 SUPERFICIAL MYCOSIS, UNSPECIFIED 01/07/2018 MARQUIS COLMENARES R CARPENTER'S ASSISTANT Ot L03.116 CELLULITIS OF LEFT LOWER LIMB 01/07/2018 DEDRA MARQUIS R CARPENTER'S ASSISTANT Ot L97.122 NON-PRESSURE CHRONIC ULCER OF LEFT THIGH 01/07/2018 MARQUIS COLMENARES R CARPENTER'S ASSISTANT Ot 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 01/07/2018 MARQUIS COLMENARES R CARPENTER'S ASSISTANT Ot B36.9 SUPERFICIAL MYCOSIS, UNSPECIFIED 01/07/2018 MARQUIS COLMENARES R CARPENTER'S ASSISTANT Ot L03.116 CELLULITIS OF LEFT LOWER LIMB 01/07/2018 MARQUIS COLMENARES CARPENTER'S ASSISTANT Ot L97.122 NON-PRESSURE CHRONIC ULCER OF LEFT THIGH 01/07/2018 MARQUIS COLMENARES R CARPENTER'S ASSISTANT Ot 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 01/07/2018 MARQUIS COLMENARES R CARPENTER'S ASSISTANT Ot B36.9 SUPERFICIAL MYCOSIS, UNSPECIFIED 01/07/2018 MARQUIS COLMENARES R CARPENTER'S ASSISTANT Ot L03.116 CELLULITIS OF LEFT LOWER LIMB 01/07/2018 MARQUIS COLMENARES R CARPENTER'S ASSISTANT Ot L97.122 NON-PRESSURE CHRONIC ULCER OF LEFT THIGH 01/07/2018 MARQUIS COLMENARES R CARPENTER'S ASSISTANT Ot 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 01/08/2018 MARQUIS COLMENARES R CARPENTER'S ASSISTANT Ot B36.9 SUPERFICIAL MYCOSIS, UNSPECIFIED 01/08/2018 MARQUIS COLMENARES CARPENTER'S ASSISTANT Ot L03.116 CELLULITIS OF LEFT LOWER LIMB 01/08/2018 MARQUIS COLMENARES CARPENTER'S ASSISTANT Ot L97.121 NON-PRS CHRONIC ULCER OF LEFT THIGH LIMI 01/08/2018 MARQUIS COLMENARES CARPENTER'S ASSISTANT Ot L97.122 NON-PRESSURE CHRONIC ULCER OF LEFT THIGH 01/08/2018 MARQUIS COLMENARES CARPENTER'S ASSISTANT Ot 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 01/08/2018 MARQUIS COLMENARES CARPENTER'S ASSISTANT Ot Z51.81 ENCOUNTER FOR THERAPEUTIC DRUG LEVEL MON 01/08/2018 MARQUIS COLMENARES CARPENTER'S ASSISTANT Ot Z79.899 OTHER CUSTODIAL (CURRENT) DRUG THERAPY 01/09/2018 MARQUIS COLMENARES CARPENTER'S ASSISTANT Ot B36.9 SUPERFICIAL MYCOSIS, UNSPECIFIED 01/09/2018 MARQUIS COLMENARES CARPENTER'S ASSISTANT Ot L03.116 CELLULITIS OF LEFT LOWER LIMB 01/09/2018 MARQUIS COLMENARES CARPENTER'S ASSISTANT Ot L97.121 NON-PRS CHRONIC ULCER OF LEFT THIGH LIMI 01/09/2018 MARQUIS COLMENARES R CARPENTER'S ASSISTANT Ot 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 01/14/2018 MARQUIS COLMENARES R CARPENTER'S ASSISTANT Ot B36.9 SUPERFICIAL MYCOSIS, UNSPECIFIED 01/14/2018 MARQUIS COLMENARES R CARPENTER'S ASSISTANT Ot L03.116 CELLULITIS OF LEFT LOWER LIMB 01/14/2018 MARQUIS COLMENARES CARPENTER'S ASSISTANT Ot L97.121 NON-PRS CHRONIC ULCER OF LEFT THIGH LIMI 01/14/2018 MARQUIS COLMENARES CARPENTER'S ASSISTANT Ot 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 01/16/2018 MARQUIS COLMENARES CARPENTER'S ASSISTANT Ot B36.9 SUPERFICIAL MYCOSIS, UNSPECIFIED 01/16/2018 MARQUIS COLMENARES R CARPENTER'S ASSISTANT Ot L03.116 CELLULITIS OF LEFT LOWER LIMB 01/16/2018 MARQUIS COLMENARES R CARPENTER'S ASSISTANT Ot L97.121 NON-PRS CHRONIC ULCER OF LEFT THIGH LIMI 01/16/2018 MARQUIS COLMENARES R CARPENTER'S ASSISTANT Ot 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 01/16/2018 MARQUIS COLMENARES R CARPENTER'S ASSISTANT Ot B36.9 SUPERFICIAL MYCOSIS, UNSPECIFIED 01/16/2018 MARQUIS COLMENARES R CARPENTER'S ASSISTANT Ot L03.116 CELLULITIS OF LEFT LOWER LIMB 01/16/2018 MARQUIS COLMENARES CARPENTER'S ASSISTANT Ot L97.121 NON-PRS CHRONIC ULCER OF LEFT THIGH LIMI 01/16/2018 DEDRA MARQUIS R CARPENTER'S ASSISTANT Ot L97.122 NON-PRESSURE CHRONIC ULCER OF LEFT THIGH 01/16/2018 DEDRA MARQUIS R CARPENTER'S ASSISTANT Ot 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 01/22/2018 DEDRA MARQUIS R CARPENTER'S ASSISTANT Ot B36.9 SUPERFICIAL MYCOSIS, UNSPECIFIED 01/22/2018 DEDRA MARQUIS R CARPENTER'S ASSISTANT Ot L03.116 CELLULITIS OF LEFT LOWER LIMB 01/22/2018 DEDRA MARQUIS R CARPENTER'S ASSISTANT Ot L97.121 NON-PRS CHRONIC ULCER OF LEFT THIGH LIMI 01/22/2018 DEDRA MARQUIS R CARPENTER'S ASSISTANT Ot L97.122 NON-PRESSURE CHRONIC ULCER OF LEFT THIGH 01/22/2018 DEDRA MARQUIS R CARPENTER'S ASSISTANT Ot 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 01/23/2018 DEDRA MARQUIS R CARPENTER'S ASSISTANT Ot B36.9 SUPERFICIAL MYCOSIS, UNSPECIFIED 01/23/2018 DEDRA MARQUIS R CARPENTER'S ASSISTANT Ot L03.116 CELLULITIS OF LEFT LOWER LIMB 01/23/2018 MARQUIS COLMENARES R CARPENTER'S ASSISTANT Ot L97.122 NON-PRESSURE CHRONIC ULCER OF LEFT THIGH 01/23/2018 DEDRA MARQUIS R CARPENTER'S ASSISTANT Ot 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 01/23/2018 MARQUIS COLMENARES R CARPENTER'S ASSISTANT Ot B36.9 SUPERFICIAL MYCOSIS, UNSPECIFIED 01/23/2018 DEDRA MARQUIS R CARPENTER'S ASSISTANT Ot L03.116 CELLULITIS OF LEFT LOWER LIMB 01/23/2018 DEDRA MARQUIS R CARPENTER'S ASSISTANT Ot L97.122 NON-PRESSURE CHRONIC ULCER OF LEFT THIGH 01/23/2018 DEDRA MARQUIS R CARPENTER'S ASSISTANT Ot 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 01/28/2018 DEDRA MARQUIS R CARPENTER'S ASSISTANT Ot B36.9 SUPERFICIAL MYCOSIS, UNSPECIFIED 01/28/2018 DEDRA MARQUIS R CARPENTER'S ASSISTANT Ot L03.116 CELLULITIS OF LEFT LOWER LIMB 01/28/2018 DEDRA MARQUIS R CARPENTER'S ASSISTANT Ot L97.122 NON-PRESSURE CHRONIC ULCER OF LEFT THIGH 01/28/2018 DEDRA MARQUIS R CARPENTER'S ASSISTANT Ot 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 01/30/2018 DEDRA MARQUIS R CARPENTER'S ASSISTANT Ot B36.9 SUPERFICIAL MYCOSIS, UNSPECIFIED 01/30/2018 DEDRA MARQUIS R CARPENTER'S ASSISTANT Ot L03.116 CELLULITIS OF LEFT LOWER LIMB 01/30/2018 DEDRAPASCUALN R CARPENTER'S ASSISTANT Ot L97.121 NON-PRS CHRONIC ULCER OF LEFT THIGH LIMI 01/30/2018 DEDRA MARQUIS R CARPENTER'S ASSISTANT Ot 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 02/01/2018 MARQUIS COLMENARES R CARPENTER'S ASSISTANT Ot B36.9 SUPERFICIAL MYCOSIS, UNSPECIFIED 02/01/2018 MARQUIS COLMENARES R CARPENTER'S ASSISTANT Ot L03.116 CELLULITIS OF LEFT LOWER LIMB 02/01/2018 MARQUIS COLMENARES R CARPENTER'S ASSISTANT Ot L97.121 NON-PRS CHRONIC ULCER OF LEFT THIGH LIMI 02/01/2018 DEDRA MARQUIS R CARPENTER'S ASSISTANT Ot L97.122 NON-PRESSURE CHRONIC ULCER OF LEFT THIGH 02/01/2018 MARQUIS COLMENARES R CARPENTER'S ASSISTANT Ot 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 02/04/2018 MARQUIS COLMENARES R CARPENTER'S ASSISTANT Ot B36.9 SUPERFICIAL MYCOSIS, UNSPECIFIED 02/04/2018 MARQUIS COLMENARES R CARPENTER'S ASSISTANT Ot L03.116 CELLULITIS OF LEFT LOWER LIMB 02/04/2018 MARQUIS COLMENARES R CARPENTER'S ASSISTANT Ot L97.121 NON-PRS CHRONIC ULCER OF LEFT THIGH LIMI 02/04/2018 DEDRA MARQUIS R CARPENTER'S ASSISTANT Ot L97.122 NON-PRESSURE CHRONIC ULCER OF LEFT THIGH 02/04/2018 MARQUIS COLMENARES R CARPENTER'S ASSISTANT Ot 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 02/05/2018 MARQUIS COLMENARES R CARPENTER'S ASSISTANT Ot B36.9 SUPERFICIAL MYCOSIS, UNSPECIFIED 02/05/2018 MARQUIS COLMENARES CARPENTER'S ASSISTANT Ot L03.116 CELLULITIS OF LEFT LOWER LIMB 02/05/2018 MARQUIS COLMENARES CARPENTER'S ASSISTANT Ot L97.121 NON-PRS CHRONIC ULCER OF LEFT THIGH LIMI 02/05/2018 MARQUIS COLMENARES R CARPENTER'S ASSISTANT Ot 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 02/13/2018 MARQUIS COLMENARES CARPENTER'S ASSISTANT Ot B36.9 SUPERFICIAL MYCOSIS, UNSPECIFIED 02/13/2018 MARQUIS COLMENARES R CARPENTER'S ASSISTANT Ot L03.116 CELLULITIS OF LEFT LOWER LIMB 02/13/2018 MARQUIS COLMENARES R CARPENTER'S ASSISTANT Ot L97.122 NON-PRESSURE CHRONIC ULCER OF LEFT THIGH 02/13/2018 MARQUIS COLMENARES R CARPENTER'S ASSISTANT Ot 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 03/01/2018 DEDRA MARQUIS Torres CARPENTER'S ASSISTANT Ot B36.9 SUPERFICIAL MYCOSIS, UNSPECIFIED 03/01/2018 MARQUIS COLMENARES R CARPENTER'S ASSISTANT Ot L03.116 CELLULITIS OF LEFT LOWER LIMB 03/01/2018 MARQUIS COLMENARES CARPENTER'S ASSISTANT Ot L97.121 NON-PRS CHRONIC ULCER OF LEFT THIGH LIMI 03/01/2018 DEDRA MARQUIS Torres CARPENTER'S ASSISTANT Ot 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 03/01/2018 MARQUIS COLMENARES CARPENTER'S ASSISTANT Ot B36.9 SUPERFICIAL MYCOSIS, UNSPECIFIED 03/01/2018 MARQUIS COLMENARES R CARPENTER'S ASSISTANT Ot L03.116 CELLULITIS OF LEFT LOWER LIMB 03/01/2018 MARQUIS COLMENARES R CARPENTER'S ASSISTANT Ot L97.121 NON-PRS CHRONIC ULCER OF LEFT THIGH LIMI 03/01/2018 MARQUIS COLMENARES CARPENTER'S ASSISTANT Ot 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 03/04/2018 MARQUIS COLMENARES CARPENTER'S ASSISTANT Ot Z51.81 ENCOUNTER FOR THERAPEUTIC DRUG LEVEL MON 03/04/2018 MARQUIS COLMENARES R CARPENTER'S ASSISTANT Ot Z79.899 OTHER CUSTODIAL (CURRENT) DRUG THERAPY 03/05/2018 MARQUIS COLMENARES R CARPENTER'S ASSISTANT Ot Z51.81 ENCOUNTER FOR THERAPEUTIC DRUG LEVEL MON 03/05/2018 MARQUIS COLMENARES R CARPENTER'S ASSISTANT Ot Z79.899 OTHER CUSTODIAL (CURRENT) DRUG THERAPY 03/11/2018 MARQUIS COLMENARES CARPENTER'S ASSISTANT Ot B36.9 SUPERFICIAL MYCOSIS, UNSPECIFIED 03/11/2018 MARQUIS COLMENARES CARPENTER'S ASSISTANT Ot L03.116 CELLULITIS OF LEFT LOWER LIMB 03/11/2018 MARQUIS COLMENARES CARPENTER'S ASSISTANT Ot L97.122 NON-PRESSURE CHRONIC ULCER OF LEFT THIGH 03/11/2018 MARQUIS COLMENARES CARPENTER'S ASSISTANT Ot 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 2019 MARQUIS COLMENARES R CARPENTER'S ASSISTANT Ot L03.116 CELLULITIS OF LEFT LOWER LIMB 2019 MARQUIS COLMENARES CARPENTER'S ASSISTANT Ot 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 2019 MARQUIS COLMENARES CARPENTER'S ASSISTANT Ot B36.9 SUPERFICIAL MYCOSIS, UNSPECIFIED 2019 MARQUIS COLMENARES CARPENTER'S ASSISTANT Ot L03.116 CELLULITIS OF LEFT LOWER LIMB 2019 MARQUIS COLMENARES CARPENTER'S ASSISTANT Ot L97.122 NON-PRESSURE CHRONIC ULCER OF LEFT THIGH 2019 DEDRA MARQUIS R CARPENTER'S ASSISTANT Ot 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 2019 DEDRAMARQUIS R CARPENTER'S ASSISTANT Ot B36.9 SUPERFICIAL MYCOSIS, UNSPECIFIED 2019 DEDRA MARQUIS R CARPENTER'S ASSISTANT Ot L03.116 CELLULITIS OF LEFT LOWER LIMB 2019 DEDRA MARQUIS R CARPENTER'S ASSISTANT Ot L97.122 NON-PRESSURE CHRONIC ULCER OF LEFT THIGH 2019 DEDRA MARQUIS R CARPENTER'S ASSISTANT Ot 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 2019 DEDRA MARQUIS R CARPENTER'S ASSISTANT Ot B36.9 SUPERFICIAL MYCOSIS, UNSPECIFIED 2019 DEDRA MARQUIS R CARPENTER'S ASSISTANT Ot L03.116 CELLULITIS OF LEFT LOWER LIMB 2019 DEDRA MARQUIS R CARPENTER'S ASSISTANT Ot L97.122 NON-PRESSURE CHRONIC ULCER OF LEFT THIGH 2019 MARQUIS COLMENARES R CARPENTER'S ASSISTANT Ot 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 2019 DEDRA MARQUIS R CARPENTER'S ASSISTANT Ot B36.9 SUPERFICIAL MYCOSIS, UNSPECIFIED 2019 DEDRA MARQUIS R CARPENTER'S ASSISTANT Ot L03.116 CELLULITIS OF LEFT LOWER LIMB 2019 DEDRA MARQUIS R CARPENTER'S ASSISTANT Ot L97.122 NON-PRESSURE CHRONIC ULCER OF LEFT THIGH 2019 MARQUIS COLMENARES R CARPENTER'S ASSISTANT Ot 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 2019 MARQUIS COLMENARES R CARPENTER'S ASSISTANT Ot B36.9 SUPERFICIAL MYCOSIS, UNSPECIFIED 2019 MARQUIS COLMENARES R CARPENTER'S ASSISTANT Ot L03.116 CELLULITIS OF LEFT LOWER LIMB 2019 DEDRA MARQUIS R CARPENTER'S ASSISTANT Ot L97.122 NON-PRESSURE CHRONIC ULCER OF LEFT THIGH 2019 MARQUIS COLMENARES R CARPENTER'S ASSISTANT Ot 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 2019 MARQUIS COLMENARES R CARPENTER'S ASSISTANT Ot B36.9 SUPERFICIAL MYCOSIS, UNSPECIFIED 2019 DEDRA MARQUIS R CARPENTER'S ASSISTANT Ot L03.116 CELLULITIS OF LEFT LOWER LIMB 2019 DEDRA MARQUIS R CARPENTER'S ASSISTANT Ot L97.121 NON-PRS CHRONIC ULCER OF LEFT THIGH LIMI 2019 DEDRA MARQUIS R CARPENTER'S ASSISTANT Ot L97.122 NON-PRESSURE CHRONIC ULCER OF LEFT THIGH 2019 DEDRA MARQUIS R CARPENTER'S ASSISTANT Ot 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 2019 MARQUIS COLMENARES R CARPENTER'S ASSISTANT Ot B36.9 SUPERFICIAL MYCOSIS, UNSPECIFIED 2019 MARQUIS COLMENARES R CARPENTER'S ASSISTANT Ot L03.116 CELLULITIS OF LEFT LOWER LIMB 2019 MARQUIS COLMENARES R CARPENTER'S ASSISTANT Ot L97.121 NON-PRS CHRONIC ULCER OF LEFT THIGH LIMI 2019 DEDRA MARQUIS R CARPENTER'S ASSISTANT Ot L97.122 NON-PRESSURE CHRONIC ULCER OF LEFT THIGH 2019 DEDRA MARQUIS R CARPENTER'S ASSISTANT Ot 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 2019 MARQUIS COLMENARES R CARPENTER'S ASSISTANT Ot B36.9 SUPERFICIAL MYCOSIS, UNSPECIFIED 2019 MARQUIS COLMENARES R CARPENTER'S ASSISTANT Ot L03.116 CELLULITIS OF LEFT LOWER LIMB 2019 MARQUIS COLMENARES CARPENTER'S ASSISTANT Ot L97.121 NON-PRS CHRONIC ULCER OF LEFT THIGH LIMI 2019 MARQUIS COLMENARES R CARPENTER'S ASSISTANT Ot L97.122 NON-PRESSURE CHRONIC ULCER OF LEFT THIGH 2019 MARQUIS COLMENARES R CARPENTER'S ASSISTANT Ot 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 2019 MARQUIS COLMENARES R CARPENTER'S ASSISTANT Ot B36.9 SUPERFICIAL MYCOSIS, UNSPECIFIED 2019 MARQUIS COLMENARES R CARPENTER'S ASSISTANT Ot L03.116 CELLULITIS OF LEFT LOWER LIMB 2019 MARQUIS COLMENARES R CARPENTER'S ASSISTANT Ot L97.121 NON-PRS CHRONIC ULCER OF LEFT THIGH LIMI 2019 MARQUIS COLMENARES R CARPENTER'S ASSISTANT Ot 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 2019 MARQUIS COLMENARES R CARPENTER'S ASSISTANT Ot B36.9 SUPERFICIAL MYCOSIS, UNSPECIFIED 2019 MARQUIS COLMENARES R CARPENTER'S ASSISTANT Ot L03.116 CELLULITIS OF LEFT LOWER LIMB 2019 MARQUIS COLMENARES R CARPENTER'S ASSISTANT Ot L97.121 NON-PRS CHRONIC ULCER OF LEFT THIGH LIMI 2019 MARQUIS COLMENARES R CARPENTER'S ASSISTANT Ot 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 2019 MARQUIS COLMENARES R CARPENTER'S ASSISTANT Ot B36.9 SUPERFICIAL MYCOSIS, UNSPECIFIED 2019 MARQUIS COLMENARES APRN Ot L03.116 CELLULITIS OF LEFT LOWER LIMB 2019 MARQUIS COLMENARES APRN Ot L97.122 NON-PRESSURE CHRONIC ULCER OF LEFT THIGH 2019 MARQUIS COLMENARES APRN Ot 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 2019 MARQUIS COLMENARES APRN Ot Z51.81 ENCOUNTER FOR THERAPEUTIC DRUG LEVEL MON 2019 MARQUIS COLMENARES APRN Ot 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 4 CUSTODIAL (CURRENT) USE OF INSULIN 08/29/2019 GRIFFIN DO, [...] GRIFFIN DO, GALO D Ot Z79. 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 4 CUSTODIAL (CURRENT) USE OF INSULIN 09/05/2019 GRIFFIN DO, [...] GRIFFIN DO, GALO D Ot Z79. 4 CUSTODIAL (CURRENT) USE OF INSULIN 09/05/2019 GRIFFIN DO, GALO D Ot Z86. 73 PRSNL HX OF TIA (TIA), AND CEREB INFRC W 09/05/2019 GRIFFIN DO, GAOL D Ot 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 RIGHT [...] GRIFFIN DO, GALO D Ot Z79. 4 CUSTODIAL (CURRENT) USE OF INSULIN 09/05/2019 GRIFFIN DO, [...] GRIFFIN DO, GALO D Ot Z79. 4 CUSTODIAL (CURRENT) USE OF INSULIN 09/06/2019 GRIFFIN DO, [...] GRIFFIN DO, GALO D Ot Z79. 4 CUSTODIAL (CURRENT) USE OF INSULIN 09/07/2019 GRIFFIN DO, [...] GRIFFIN DO, GALO D Ot Z79. 4 CUSTODIAL (CURRENT) USE OF INSULIN 09/08/2019 GRIFFIN DO, [...] GRIFFIN DO, GALO D Ot Z79. 4 CUSTODIAL (CURRENT) USE OF INSULIN 09/08/2019 GRIFFIN DO, [...] GRIFFIN DO, GALO D Ot Z79. 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 5 HYPERLIPIDEMIA, UNSPECIFIED 09/09/2019 [facility] 42 HYPOMAGNESEMIA 09/09/2019 [facility]. 0 DEHYDRATION 09/09/2019 [facility]87. 6 HYPOKALEMIA 09/09/2019 [facility] [facility] ESSENTIAL (PRIMARY) HYPERTENSION 09/09/2019 [facility] I35. 0 NONRHEUMATIC AORTIC (VALVE) STENOSIS 09/09/2019 [facility] I95. 9 HYPOTENSION, UNSPECIFIED 09/09/2019 [facility] J18. 9 PNEUMONIA, UNSPECIFIED ORGANISM 09/09/2019 [facility] J91. 8 PLEURAL EFFUSION IN OTHER CONDITIONS CLA 09/09/2019 [facility] J96. 00 ACUTE RESPIRATORY FAILURE, UNSP W HYPOXI 09/09/2019 [facility] K56. 50 INTESTNL ADHESIONS, UNSP TO PARTIAL V 09/09/2019 [facility] K56. 7 ILEUS, UNSPECIFIED 09/09/2019 [facility] K91. 89 OTH POSTPROCEDURAL COMPLICATIONS AND DIS 09/09/2019 [facility] N40. 0 BENIGN PROSTATIC HYPERPLASIA WITHOUT LOW 09/09/2019 [facility] Ot N99. 72 ACCIDENTAL PNCTR LAC OF A SYS ORG D 09/09/2019 [facility] R33. 9 RETENTION OF URINE, UNSPECIFIED 09/09/2019 [facility] Ot Z79. 4 CUSTODIAL (CURRENT) USE OF INSULIN 09/09/2019 [facility] Ot Z86. 73 PRSNL HX OF TIA (TIA), AND CEREB INFRC W 09/09/2019 [facility] Ot 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 RIGHT LEG BELOW KNEE 09/09/2019 [facility] 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 10/15/2019 MARQUIS COLMENARES APRN Ot L03.116 CELLULITIS OF LEFT LOWER LIMB 10/15/2019 MARQUIS COLMENARES APRN Ot 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 10/15/2019 DEDRA MARQUIS R CARPENTER'S ASSISTANT Ot B36.9 SUPERFICIAL MYCOSIS, UNSPECIFIED 10/15/2019 DEDRA, MARQUIS R CARPENTER'S ASSISTANT Ot L03.116 CELLULITIS OF LEFT LOWER LIMB 10/15/2019 DEDRA, MARQUIS R CARPENTER'S ASSISTANT Ot L97.122 NON-PRESSURE CHRONIC ULCER OF LEFT THIGH 10/15/2019 DEDRA MARQUIS R CARPENTER'S ASSISTANT Ot 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 10/15/2019 DEDRA, MARQUIS R CARPENTER'S ASSISTANT Ot B36.9 SUPERFICIAL MYCOSIS, UNSPECIFIED 10/15/2019 DEDRA, MARQUIS R CARPENTER'S ASSISTANT Ot L03.116 CELLULITIS OF LEFT LOWER LIMB 10/15/2019 DEDRA, MARQUIS R CARPENTER'S ASSISTANT Ot L97.122 NON-PRESSURE CHRONIC ULCER OF LEFT THIGH 10/15/2019 DEDRA MARQUIS R CARPENTER'S ASSISTANT Ot 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 10/15/2019 DEDRA MARQUIS R CARPENTER'S ASSISTANT Ot B36.9 SUPERFICIAL MYCOSIS, UNSPECIFIED 10/15/2019 DEDRA, MARQUIS R CARPENTER'S ASSISTANT Ot L03.116 CELLULITIS OF LEFT LOWER LIMB 10/15/2019 DEDRA, MARQUIS R CARPENTER'S ASSISTANT Ot L97.122 NON-PRESSURE CHRONIC ULCER OF LEFT THIGH 10/15/2019 DEDRA MARQUIS R CARPENTER'S ASSISTANT Ot 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 10/15/2019 DEDRA MARQUIS R CARPENTER'S ASSISTANT Ot B36.9 SUPERFICIAL MYCOSIS, UNSPECIFIED 10/15/2019 DEDRA, MARQUIS R CARPENTER'S ASSISTANT Ot L03.116 CELLULITIS OF LEFT LOWER LIMB 10/15/2019 DEDRA MARQUIS R CARPENTER'S ASSISTANT Ot L97.122 NON-PRESSURE CHRONIC ULCER OF LEFT THIGH 10/15/2019 DEDRA MARQUIS R CARPENTER'S ASSISTANT Ot 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 10/15/2019 DEDRA, MARQUIS R CARPENTER'S ASSISTANT Ot B36.9 SUPERFICIAL MYCOSIS, UNSPECIFIED 10/15/2019 DEDRA, MARQUIS R CARPENTER'S ASSISTANT Ot L03.116 CELLULITIS OF LEFT LOWER LIMB 10/15/2019 DEDRA, MARQUIS R CARPENTER'S ASSISTANT Ot L97.122 NON-PRESSURE CHRONIC ULCER OF LEFT THIGH 10/15/2019 DEDRA MARQUIS R CARPENTER'S ASSISTANT Ot 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 10/15/2019 DEDRA, MARQUIS R CARPENTER'S ASSISTANT Ot B36.9 SUPERFICIAL MYCOSIS, UNSPECIFIED 10/15/2019 DEDRA MARQUIS R CARPENTER'S ASSISTANT Ot L03.116 CELLULITIS OF LEFT LOWER LIMB 10/15/2019 DEDRA MARQUIS R CARPENTER'S ASSISTANT Ot L97.121 NON-PRS CHRONIC ULCER OF LEFT THIGH LIMI 10/15/2019 DEDRA, MARQUIS R CARPENTER'S ASSISTANT Ot L97.122 NON-PRESSURE CHRONIC ULCER OF LEFT THIGH 10/15/2019 DEDRA MARQUIS R CARPENTER'S ASSISTANT Ot 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 10/15/2019 DEDRA MARQUIS R CARPENTER'S ASSISTANT Ot B36.9 SUPERFICIAL MYCOSIS, UNSPECIFIED 10/15/2019 DEDRA MARQUIS R CARPENTER'S ASSISTANT Ot L03.116 CELLULITIS OF LEFT LOWER LIMB 10/15/2019 DEDRA MARQUIS R CARPENTER'S ASSISTANT Ot L97.121 NON-PRS CHRONIC ULCER OF LEFT THIGH LIMI 10/15/2019 DEDRA MARQUIS R CARPENTER'S ASSISTANT Ot L97.122 NON-PRESSURE CHRONIC ULCER OF LEFT THIGH 10/15/2019 DEDRA MARQUIS R CARPENTER'S ASSISTANT Ot 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 10/15/2019 DEDRA MARQUIS R CARPENTER'S ASSISTANT Ot B36.9 SUPERFICIAL MYCOSIS, UNSPECIFIED 10/15/2019 DEDRA MARQUIS R CARPENTER'S ASSISTANT Ot L03.116 CELLULITIS OF LEFT LOWER LIMB 10/15/2019 DEDRA MARQUIS R CARPENTER'S ASSISTANT Ot L97.121 NON-PRS CHRONIC ULCER OF LEFT THIGH LIMI 10/15/2019 DEDRA MARQUIS R CARPENTER'S ASSISTANT Ot L97.122 NON-PRESSURE CHRONIC ULCER OF LEFT THIGH 10/15/2019 DEDRA MARQUIS R CARPENTER'S ASSISTANT Ot 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 10/15/2019 DEDRA MARQUIS R CARPENTER'S ASSISTANT Ot B36.9 SUPERFICIAL MYCOSIS, UNSPECIFIED 10/15/2019 DEDRA MARQUIS R CARPENTER'S ASSISTANT Ot L03.116 CELLULITIS OF LEFT LOWER LIMB 10/15/2019 DEDRA MARQUIS R CARPENTER'S ASSISTANT Ot L97.121 NON-PRS CHRONIC ULCER OF LEFT THIGH LIMI 10/15/2019 DEDRA MARQUIS R CARPENTER'S ASSISTANT Ot 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 10/15/2019 DEDRA MARQUIS R CARPENTER'S ASSISTANT Ot B36.9 SUPERFICIAL MYCOSIS, UNSPECIFIED 10/15/2019 DEDRA, MARQUIS R CARPENTER'S ASSISTANT Ot L03.116 CELLULITIS OF LEFT LOWER LIMB 10/15/2019 DEDRA MARQUIS R CARPENTER'S ASSISTANT Ot L97.121 NON-PRS CHRONIC ULCER OF LEFT THIGH LIMI 10/15/2019 MARQUIS COLMENARES CARPENTER'S ASSISTANT Ot 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 10/15/2019 MARQUIS COLMENARES CARPENTER'S ASSISTANT Ot B36.9 SUPERFICIAL MYCOSIS, UNSPECIFIED 10/15/2019 MARQUIS COLMENARES R CARPENTER'S ASSISTANT Ot L03.116 CELLULITIS OF LEFT LOWER LIMB 10/15/2019 MARQUIS COLMENARES CARPENTER'S ASSISTANT Ot L97.122 NON-PRESSURE CHRONIC ULCER OF LEFT THIGH 10/15/2019 MARQUIS COLMENARES CARPENTER'S ASSISTANT Ot 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 10/15/2019 MARQUIS COLMENARES CARPENTER'S ASSISTANT Ot Z51.81 ENCOUNTER FOR THERAPEUTIC DRUG LEVEL MON 10/15/2019 MARQUIS COLMENARES CARPENTER'S ASSISTANT Ot Z79.899 OTHER CUSTODIAL (CURRENT) DRUG THERAPY 10/15/2019 KIANNA PERES MD, Ot E11.622 TYPE 2 DIABETES MELLITUS WITH OTHER SKIN 10/15/2019 KIANNA PERES MD, Ot I70.232 ATHSCL [place] ARTERIES OF RIGHT LEG W UL 10/15/2019 [...] UNSP MALIGNANT NEOPLASM OF 10/17/2019 MARQUIS COLMENARES CARPENTER'S ASSISTANT Ot L03.116 CELLULITIS OF LEFT LOWER LIMB [...] LEG BELOW KNEE 10/17/2019 DEDRA, MARQUIS R CARPENTER'S ASSISTANT Ot B36.9 SUPERFICIAL MYCOSIS, UNSPECIFIED 10/17/2019 DEDRA, MARQUIS R CARPENTER'S ASSISTANT Ot L03.116 CELLULITIS OF LEFT LOWER LIMB 10/17/2019 DEDRA MARQUIS R CARPENTER'S ASSISTANT Ot L97.122 NON-PRESSURE CHRONIC ULCER OF LEFT THIGH 10/17/2019 DEDRA MARQUIS R CARPENTER'S ASSISTANT Ot 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 10/17/2019 DEDRA MARQUIS R CARPENTER'S ASSISTANT Ot B36.9 SUPERFICIAL MYCOSIS, UNSPECIFIED 10/17/2019 DEDRA, MARQUIS R CARPENTER'S ASSISTANT Ot L03.116 CELLULITIS OF LEFT LOWER LIMB 10/17/2019 DEDRA, MARQUIS R CARPENTER'S ASSISTANT Ot L97.122 NON-PRESSURE CHRONIC ULCER OF LEFT THIGH 10/17/2019 DEDRA MARQUIS R CARPENTER'S ASSISTANT Ot 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 10/17/2019 DEDRA MARQUIS R CARPENTER'S ASSISTANT Ot B36.9 SUPERFICIAL MYCOSIS, UNSPECIFIED 10/17/2019 DEDRA MARQUIS R CARPENTER'S ASSISTANT Ot L03.116 CELLULITIS OF LEFT LOWER LIMB 10/17/2019 DEDRA MARQUIS R CARPENTER'S ASSISTANT Ot L97.122 NON-PRESSURE CHRONIC ULCER OF LEFT THIGH 10/17/2019 DEDRA MARQUIS R CARPENTER'S ASSISTANT Ot 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 10/17/2019 DEDRA MARQUIS R CARPENTER'S ASSISTANT Ot B36.9 SUPERFICIAL MYCOSIS, UNSPECIFIED 10/17/2019 DEDRA, MARQUIS R CARPENTER'S ASSISTANT Ot L03.116 CELLULITIS OF LEFT LOWER LIMB 10/17/2019 DEDRA MARQUIS R CARPENTER'S ASSISTANT Ot L97.122 NON-PRESSURE CHRONIC ULCER OF LEFT THIGH 10/17/2019 DEDRA MARQUIS R CARPENTER'S ASSISTANT Ot 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 10/17/2019 DEDRA MARQUIS R CARPENTER'S ASSISTANT Ot B36.9 SUPERFICIAL MYCOSIS, UNSPECIFIED 10/17/2019 DEDRA, MARQUIS R CARPENTER'S ASSISTANT Ot L03.116 CELLULITIS OF LEFT LOWER LIMB 10/17/2019 DEDRA MARQUIS R CARPENTER'S ASSISTANT Ot L97.121 NON-PRS CHRONIC ULCER OF LEFT THIGH LIMI 10/17/2019 DEDRA MARQUIS R CARPENTER'S ASSISTANT Ot L97.122 NON-PRESSURE CHRONIC ULCER OF LEFT THIGH 10/17/2019 DEDRA MARQUIS R CARPENTER'S ASSISTANT Ot 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 10/17/2019 DEDRA MARQUIS R CARPENTER'S ASSISTANT Ot B36.9 SUPERFICIAL MYCOSIS, UNSPECIFIED 10/17/2019 DEDRA MARQUIS R CARPENTER'S ASSISTANT Ot L03.116 CELLULITIS OF LEFT LOWER LIMB 10/17/2019 DEDRA MARQUIS R CARPENTER'S ASSISTANT Ot L97.121 NON-PRS CHRONIC ULCER OF LEFT THIGH LIMI 10/17/2019 DEDRA MARQUIS R CARPENTER'S ASSISTANT Ot L97.122 NON-PRESSURE CHRONIC ULCER OF LEFT THIGH 10/17/2019 DEDRA MARQUIS R CARPENTER'S ASSISTANT Ot 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 10/17/2019 DEDRA MARQUIS R CARPENTER'S ASSISTANT Ot B36.9 SUPERFICIAL MYCOSIS, UNSPECIFIED 10/17/2019 DEDRA MARQUIS R CARPENTER'S ASSISTANT Ot L03.116 CELLULITIS OF LEFT LOWER LIMB 10/17/2019 DEDRA MARQUIS R CARPENTER'S ASSISTANT Ot L97.121 NON-PRS CHRONIC ULCER OF LEFT THIGH LIMI 10/17/2019 DEDRA MARQUIS R CARPENTER'S ASSISTANT Ot L97.122 NON-PRESSURE CHRONIC ULCER OF LEFT THIGH 10/17/2019 DEDRA MARQUIS R CARPENTER'S ASSISTANT Ot 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 10/17/2019 DEDRA MARQUIS R CARPENTER'S ASSISTANT Ot B36.9 SUPERFICIAL MYCOSIS, UNSPECIFIED 10/17/2019 DEDRA MARQUIS R CARPENTER'S ASSISTANT Ot L03.116 CELLULITIS OF LEFT LOWER LIMB 10/17/2019 DEDRA MARQUIS R CARPENTER'S ASSISTANT Ot L97.121 NON-PRS CHRONIC ULCER OF LEFT THIGH LIMI 10/17/2019 DEDRA MARQUIS R CARPENTER'S ASSISTANT Ot 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 10/17/2019 DEDRA MARQUIS R CARPENTER'S ASSISTANT Ot B36.9 SUPERFICIAL MYCOSIS, UNSPECIFIED 10/17/2019 DEDRA MARQUIS R CARPENTER'S ASSISTANT Ot L03.116 CELLULITIS OF LEFT LOWER LIMB 10/17/2019 DEDRA MARQUIS R CARPENTER'S ASSISTANT Ot L97.121 NON-PRS CHRONIC ULCER OF LEFT THIGH LIMI 10/17/2019 EDDRA MARQUIS R CARPENTER'S ASSISTANT Ot 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 10/17/2019 DEDRA MARQUIS R CARPENTER'S ASSISTANT Ot B36.9 SUPERFICIAL MYCOSIS, UNSPECIFIED 10/17/2019 DEDRA MARQUIS R CARPENTER'S ASSISTANT Ot L03.116 CELLULITIS OF LEFT LOWER LIMB 10/17/2019 DEDRA MARQUIS R CARPENTER'S ASSISTANT Ot L97.122 NON-PRESSURE CHRONIC ULCER OF LEFT THIGH 10/17/2019 MARQUIS COLMENARES APRN Ot 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 10/17/2019 MARQUIS COLMENARES CARPENTER'S ASSISTANT Ot Z51.81 ENCOUNTER FOR THERAPEUTIC DRUG LEVEL MON 10/17/2019 MARQUIS COLMENARES APRN Ot 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 9 MALIGNANT NEOPLASM OF COLON, UNSPECIFIED 11/12/2019 BRET ARREDONDO MD Ot E78. 00 PURE HYPERCHOLESTEROLEMIA, UNSPECIFIED 11/12/2019 BRET ARREDONDO MD Ot I10 ESSENTIAL (PRIMARY) HYPERTENSION 11/12/2019 BRET ARREDONDO MD Ot N13. 9 OBSTRUCTIVE AND REFLUX UROPATHY, UNSPECI 11/12/2019 BRET ARREDONDO MD Ot N17. 9 ACUTE KIDNEY FAILURE, UNSPECIFIED 11/12/2019 BRET ARREDONDO MD Ot N40. 0 BENIGN PROSTATIC HYPERPLASIA WITHOUT LOW 11/12/2019 BRET ARREDONDO MD Ot 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 RIGHT LEG BELOW KNEE 11/12/2019 BRET ARREDONDO MD Ot 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 11/12/2019 BRET ARREDONDO MD Ot Z92. 21 PERSONAL HISTORY OF ANTINEOPLASTIC CHEMO 11/13/2019 SCOTT LIE MD Ot C18.7 MALIGNANT NEOPLASM OF SIGMOID COLON 11/13/2019 SCOTT LEI MD Ot C77.2 SECONDARY AND UNSP MALIGNANT NEOPLASM OF 11/13/2019 HONG DUKES MD Ot S37.13XA LACERATION OF URETER, INITIAL ENCOUNTER 11/13/2019 HONG DUKES MD Ot Z93.6 OTHER ARTIFICIAL OPENINGS OF URINARY TRA 11/17/2019 BRET ARREDONDO MD Ot C18. 9 MALIGNANT NEOPLASM OF COLON, UNSPECIFIED 11/17/2019 BRET ARREDONDO MD Ot E78. 00 PURE HYPERCHOLESTEROLEMIA, UNSPECIFIED 11/17/2019 BRET ARREDONDO MD Ot I10 ESSENTIAL (PRIMARY) HYPERTENSION 11/17/2019 BRET ARREDONDO MD Ot N13. 9 OBSTRUCTIVE AND REFLUX UROPATHY, UNSPECI 11/17/2019 BRET ARREDONDO MD Ot N17. 9 ACUTE KIDNEY FAILURE, UNSPECIFIED 11/17/2019 BRET ARREDONDO MD Ot N40. 0 BENIGN PROSTATIC HYPERPLASIA WITHOUT LOW 11/17/2019 BRET ARREDONDO MD Ot 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 RIGHT LEG BELOW KNEE 11/17/2019 BRET ARREDONDO MD Ot 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 11/17/2019 BRET ARREDONDO MD Ot Z92. 21 PERSONAL HISTORY OF ANTINEOPLASTIC CHEMO 11/18/2019 MARQUIS COLMENARES CARPENTER'S ASSISTANT Ot L03.116 CELLULITIS OF LEFT LOWER LIMB 11/18/2019 MARQUIS COLMENARES CARPENTER'S ASSISTANT Ot 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 11/18/2019 DEDRA, MARQUIS R CARPENTER'S ASSISTANT Ot B36.9 SUPERFICIAL MYCOSIS, UNSPECIFIED 11/18/2019 DEDRA, MARQUIS R CARPENTER'S ASSISTANT Ot L03.116 CELLULITIS OF LEFT LOWER LIMB 11/18/2019 DEDRA, MARQUIS R CARPENTER'S ASSISTANT Ot L97.122 NON-PRESSURE CHRONIC ULCER OF LEFT THIGH 11/18/2019 DEDRA, MARQUIS R CARPENTER'S ASSISTANT Ot 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 11/18/2019 DEDRA, MARQUIS R CARPENTER'S ASSISTANT Ot B36.9 SUPERFICIAL MYCOSIS, UNSPECIFIED 11/18/2019 DEDRA, MARQUIS R CARPENTER'S ASSISTANT Ot L03.116 CELLULITIS OF LEFT LOWER LIMB 11/18/2019 EDDRA, MARQUIS R CARPENTER'S ASSISTANT Ot L97.122 NON-PRESSURE CHRONIC ULCER OF LEFT THIGH 11/18/2019 DEDRA, MARQUIS R CARPENTER'S ASSISTANT Ot 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 11/18/2019 DEDRA, MARQUIS R CARPENTER'S ASSISTANT Ot B36.9 SUPERFICIAL MYCOSIS, UNSPECIFIED 11/18/2019 DEDRA, MARQUIS R CARPENTER'S ASSISTANT Ot L03.116 CELLULITIS OF LEFT LOWER LIMB 11/18/2019 DEDRA, MARQUIS R CARPENTER'S ASSISTANT Ot L97.122 NON-PRESSURE CHRONIC ULCER OF LEFT THIGH 11/18/2019 DEDRA, MARQUIS R CARPENTER'S ASSISTANT Ot 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 11/18/2019 DEDRA, MARQUIS R CARPENTER'S ASSISTANT Ot B36.9 SUPERFICIAL MYCOSIS, UNSPECIFIED 11/18/2019 DEDRA, MARQUIS R CARPENTER'S ASSISTANT Ot L03.116 CELLULITIS OF LEFT LOWER LIMB 11/18/2019 DEDRA, MARQUIS R CARPENTER'S ASSISTANT Ot L97.122 NON-PRESSURE CHRONIC ULCER OF LEFT THIGH 11/18/2019 DEDRA, MARQUIS R CARPENTER'S ASSISTANT Ot 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 11/18/2019 DEDRA, MARQUIS R CARPENTER'S ASSISTANT Ot B36.9 SUPERFICIAL MYCOSIS, UNSPECIFIED 11/18/2019 DEDRA, MARQUIS R CARPENTER'S ASSISTANT Ot L03.116 CELLULITIS OF LEFT LOWER LIMB 11/18/2019 DEDRA, MARQUIS R CARPENTER'S ASSISTANT Ot L97.122 NON-PRESSURE CHRONIC ULCER OF LEFT THIGH 11/18/2019 DEDRA, MARQUIS R CARPENTER'S ASSISTANT Ot 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 11/18/2019 DEDRA, MARQUIS R CARPENTER'S ASSISTANT Ot B36.9 SUPERFICIAL MYCOSIS, UNSPECIFIED 11/18/2019 DEDRA, MARQUIS R CARPENTER'S ASSISTANT Ot L03.116 CELLULITIS OF LEFT LOWER LIMB 11/18/2019 DEDRA MARQUIS R CARPENTER'S ASSISTANT Ot L97.121 NON-PRS CHRONIC ULCER OF LEFT THIGH LIMI 11/18/2019 DEDRA, MARQUIS R CARPENTER'S ASSISTANT Ot L97.122 NON-PRESSURE CHRONIC ULCER OF LEFT THIGH 11/18/2019 DEDRA MARQUIS R CARPENTER'S ASSISTANT Ot 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 11/18/2019 DEDRA MARQUIS R CARPENTER'S ASSISTANT Ot B36.9 SUPERFICIAL MYCOSIS, UNSPECIFIED 11/18/2019 DEDRA MARQUIS R CARPENTER'S ASSISTANT Ot L03.116 CELLULITIS OF LEFT LOWER LIMB 11/18/2019 DEDRA, MARQUIS R CARPENTER'S ASSISTANT Ot L97.121 NON-PRS CHRONIC ULCER OF LEFT THIGH LIMI 11/18/2019 DEDRA, MARQUIS R CARPENTER'S ASSISTANT Ot L97.122 NON-PRESSURE CHRONIC ULCER OF LEFT THIGH 11/18/2019 DEDRA MARQUIS R CARPENTER'S ASSISTANT Ot 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 11/18/2019 DEDRA MARQUIS R CARPENTER'S ASSISTANT Ot B36.9 SUPERFICIAL MYCOSIS, UNSPECIFIED 11/18/2019 DEDRA MARQUIS R CARPENTER'S ASSISTANT Ot L03.116 CELLULITIS OF LEFT LOWER LIMB 11/18/2019 DEDRA MARQUIS R CARPENTER'S ASSISTANT Ot L97.121 NON-PRS CHRONIC ULCER OF LEFT THIGH LIMI 11/18/2019 DEDRA MARQUIS R CARPENTER'S ASSISTANT Ot L97.122 NON-PRESSURE CHRONIC ULCER OF LEFT THIGH 11/18/2019 DEDRA MARQUIS R CARPENTER'S ASSISTANT Ot 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 11/18/2019 DEDRA MARQUIS R CARPENTER'S ASSISTANT Ot B36.9 SUPERFICIAL MYCOSIS, UNSPECIFIED 11/18/2019 DEDRA MARQUIS R CARPENTER'S ASSISTANT Ot L03.116 CELLULITIS OF LEFT LOWER LIMB 11/18/2019 DEDRA MARQUIS R CARPENTER'S ASSISTANT Ot L97.121 NON-PRS CHRONIC ULCER OF LEFT THIGH LIMI 11/18/2019 DEDRA, MARQUIS R CARPENTER'S ASSISTANT Ot 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 11/18/2019 DEDRA, MARQUIS R CARPENTER'S ASSISTANT Ot B36.9 SUPERFICIAL MYCOSIS, UNSPECIFIED 11/18/2019 EDDRA, MARQUIS R CARPENTER'S ASSISTANT Ot L03.116 CELLULITIS OF LEFT LOWER LIMB 11/18/2019 DEDRA, MARQUIS R CARPENTER'S ASSISTANT Ot L97.121 NON-PRS CHRONIC ULCER OF LEFT THIGH LIMI 11/18/2019 MARQUIS COLMENARES CARPENTER'S ASSISTANT Ot 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 11/18/2019 MARQUIS COLMENARES CARPENTER'S ASSISTANT Ot B36.9 SUPERFICIAL MYCOSIS, UNSPECIFIED 11/18/2019 MARQUIS COLMENARES CARPENTER'S ASSISTANT Ot L03.116 CELLULITIS OF LEFT LOWER LIMB 11/18/2019 MARQUIS COLMENARES CARPENTER'S ASSISTANT Ot L97.122 NON-PRESSURE CHRONIC ULCER OF LEFT THIGH 11/18/2019 MARQUIS COLMENARES CARPENTER'S ASSISTANT Ot Z89.512 ACQUIRED ABSENCE OF LEFT LEG BELOW KNEE 11/18/2019 MARQUIS COLMENARES CARPENTER'S ASSISTANT Ot Z51.81 ENCOUNTER FOR THERAPEUTIC DRUG LEVEL MON 11/18/2019 MARQUIS COLMENARES CARPENTER'S ASSISTANT Ot Z79.899 OTHER CUSTODIAL (CURRENT) DRUG THERAPY 11/18/2019 KIANNA PERES MD, Ot E11.622 TYPE 2 DIABETES MELLITUS WITH OTHER SKIN 11/18/2019 KIANNA PERES MD, Ot I70.232 ATHSCL [place] ARTERIES OF RIGHT LEG W UL 11/18/2019 KIANNA PERES MD, Ot L97.212 NON-PRESSURE CHRONIC ULCER OF RIGHT CALF 11/18/2019 KIANNA PERES MD, Ot 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 RIGHT LEG BELOW KNEE 11/18/2019 KIANNA PERES MD, Ot Z89.512 ACQUIRED ABSENCE OF LEFT LEG BELOW KNEE 11/18/2019 KIANNA EPRES MD, Ot E11.622 TYPE 2 DIABETES MELLITUS WITH OTHER SKIN 11/18/2019 KIANNA PERES MD Ot L97.212 NON-PRESSURE CHRONIC ULCER OF RIGHT CALF 11/18/2019 KIANNA PERES MD Ot 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 RIGHT LEG BELOW KNEE 11/18/2019 KIANNA PERES MD Ot Z89.512 ACQUIRED ABSENCE OF LEFT LEG BELOW KNEE 11/18/2019 KIANNA PERES MD, Ot E11.622 TYPE 2 DIABETES MELLITUS WITH OTHER SKIN 11/18/2019 KIANNA PERES MD, Ot L97.212 NON-PRESSURE CHRONIC ULCER OF RIGHT CALF 11/18/2019 KIANNA PERES MD Ot 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 RIGHT LEG BELOW KNEE 11/18/2019 KIANNA PERES MD Ot Z89.512 ACQUIRED ABSENCE OF LEFT LEG BELOW KNEE 11/18/2019 KIANNA PERES MD, Ot E11.622 TYPE 2 DIABETES MELLITUS WITH OTHER SKIN 11/18/2019 KIANNA PERES MD Ot L97.212 NON-PRESSURE CHRONIC ULCER OF RIGHT CALF 11/18/2019 KIANNA PERES MD Ot 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 RIGHT LEG BELOW KNEE 11/18/2019 KIANNA PERES MD Ot Z89.512 ACQUIRED ABSENCE OF LEFT LEG BELOW KNEE 11/18/2019 KIANNA PERES MD Ot E11.622 TYPE 2 DIABETES MELLITUS WITH OTHER SKIN 11/18/2019 KIANNA PERES MD Ot L97.212 NON-PRESSURE CHRONIC ULCER OF RIGHT CALF 11/18/2019 KIANNA PERES MD Ot 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 RIGHT LEG BELOW KNEE 11/18/2019 KIANNA PERES MD Ot Z89.512 ACQUIRED ABSENCE OF LEFT LEG BELOW KNEE 11/18/2019 KIANNA PERES MD Ot E11.622 TYPE 2 DIABETES MELLITUS WITH OTHER SKIN 11/18/2019 KIANAN PERES MD Ot L97.212 NON-PRESSURE CHRONIC ULCER OF RIGHT CALF 11/18/2019 KIANNA PERES MD Ot 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 RIGHT LEG BELOW KNEE 11/18/2019 KIANAN PERES MD Ot Z89.512 ACQUIRED ABSENCE OF LEFT LEG BELOW KNEE 11/18/2019 ELIAS DOGALO Ot C18. 9 MALIGNANT NEOPLASM OF COLON, UNSPECIFIED 11/18/2019 GALO GRIFFIN DO Ot N32. 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 11/19/2019 SCOTT LEI MD Ot R91.8 OTHER NONSPECIFIC ABNORMAL FINDING OF VISHAL Procedures Code Description Performed By Per formed On [id number] EX CISION OF LEFT LOWER LEG SKIN, EXTERNA 11/07/2017 [id number] EX CISION OF SIGMOID COLON, OPEN APPROACH 08/28/2019 [id number] IN SERTION OF OTHER DEVICE INTO URETER, O 08/28/2019 [id number] RE PAIR LEFT URETER, OPEN APPROACH 08/28/2019 [id number] RE LEASE SMALL INTESTINE, OPEN APPROACH 09/05/[id number] DILLARD OF PERITONEAL CAVITY, OPEN APPR 09/05/2019 [id number] RE SPIRATORY VENTILATION, 24- 96 CONSECUTI 09/05/2019 [...] Bacteria identification in isolate by anaerobe culture [id number] NR Gram stain microscopy - 11/08/17 17:30 GRAM STAIN RESULT OBSERVED NRG Bacteria identification in wound by cult ure - 11/08/17 17:30 Bacteria identification in wound by culture SEE RE PORT NRG FREE TEXT EXTERNAL SEE FUNGUS CULTURE REPORT NRG QUANTITY OF GROWTH . [facility] FREE TEXT ENTRY 2 ON THIS ORGAISM. [facility] Bacterial susceptibility panel - 8 17:30 Gentamicin [...] ed for a preliminary negative culture report. [facility] Bacterial susceptibility panel - 8 17:30 Gentamicin susceptibility test by minimum inhibitory c oncentration S NRG Erythromycin susceptibility test by minimum inhibitory concentration <= NRG Vancomycin susceptibility test by minimum inhibitory c oncentration 2 NRG Ampicillin susceptibility test by minimum inhibitory c oncentration <= NRG Linezolid susceptibility test by minimum inhibitory co ncentration 2 [facility] Fungus culture - 11/08/17 17:30 QUANTITY OF GROWTH . [facility] Fungus culture SEE REPORT NRG Capillary blood [...] identification in isolate by anaerobe culture NG NRG Gram stain microscopy - 11/22/17 14:38 GRAM STAIN RESULT NO BACTERIA NRG Bacteria identification in wound by cult ure - 11/22/17 14:38 Bacteria identification in wound by culture [id number] NRG FREE TEXT EXTERNAL FROM [employer]OTH ONLY NRG QUANTITY OF GROWTH Isolated NRG FREE TEXT ENTRY 2 SENSITIVITIES REPORTED AT 1240, 418 NRG Bacterial susceptibility panel - 8 14:38 Gentamicin susceptibility test by minimum inhibitory c oncentration S NRG Erythromycin susceptibility test by minimum inhibitory concentration <= NRG Vancomycin susceptibility test by minimum inhibitory c oncentration 2 NRG Ampicillin susceptibility test by minimum inhibitory c oncentration <= NRG Linezolid susceptibility test by minimum inhibitory co ncentration 2 NRG Bacterial susceptibility panel - 8 14:38 Oxacillin [...] co ncentration 1 NRG Fungus culture - 11/22/17 14:38 Fungus culture NG [facility] Whole blood basic metabolic panel - 11/18 03/06 10:57 Serum or plasma sodium measurement (moles/volume) 134 mmol/L 135-145 Serum or plasma potassium measurement (moles/volume) 4.7 mmol/L 3.6-5.0 Serum or plasma chloride measurement (moles/volume) 98 mmol/L 98-107 Carbon dioxide 29 mmol/L -32 Serum or plasma anion gap determination (moles/volume) 7 mmol/L 5-14 Serum or plasma urea nitrogen measurement (mass/volume ) 13 mg/dL -18 Serum or plasma creatinine measurement (mass/volume) 1.03 mg/dL 0.60-1.30 Serum or plasma urea nitrogen/creatinine mass ratio 13 [facility] Serum or plasma creatinine measurement w ith calculation of estimated glomerular filtration rate > [facility] Serum or plasma glucose measurement (mass/volume) 224 mg/dL 70-105 Serum or plasma calcium measurement (mass/volume) 9.5 mg/dL 8.5-10.1 Whole blood basic metabolic panel - 11/19 12/05 10:32 Serum or plasma sodium measurement (moles/volume) 133 mmol/L 135-145 Serum or plasma potassium measurement (moles/volume) 4.6 mmol/L 3.6-5.0 Serum or plasma chloride measurement (moles/volume) 98 mmol/L 98-107 Carbon dioxide 27 mmol/L -32 Serum or plasma anion gap determination (moles/volume) 8 mmol/L 5-14 Serum or plasma urea nitrogen measurement (mass/volume ) 11 mg/dL 18 Serum or plasma creatinine measurement (mass/volume) 0.87 mg/dL 0.60-1.30 Serum or plasma urea nitrogen/creatinine mass ratio 13 [facility] Serum or plasma creatinine measurement w ith calculation of estimated glomerular filtration rate > [facility] Serum or plasma glucose measurement (mass/volume) 185 mg/dL 70-105 Serum or plasma calcium measurement (mass/volume) 9.9 mg/dL 8.5-10.1 Whole blood basic metabolic panel - 11/20 10:59 Serum or plasma sodium measurement (moles/volume) 132 mmol/L 135-145 Serum or plasma potassium measurement (moles/volume) 4.6 mmol/L 3.6-5.0 Serum or plasma chloride measurement (moles/volume) 96 mmol/L 98-107 Carbon dioxide 28 mmol/L 21-32 [...] 8.5-10.1 Whole blood basic metabolic panel - 04/06 10:59 Serum or plasma sodium measurement (moles/volume) [...] identification in isolate by anaerobe culture NOANA [facility] Gram stain microscopy - 01/01/18 09:39 GRAM STAIN RESULT NO WBC'S OR BACTERIA OBSERVED NR Bacteria identification in wound by cult ure - 01/01/18 09:39 Bacteria identification in wound by culture [id number] NR FREE TEXT EXTERNAL SENSITIVITY REPORTED [...] NRG FTX;REPORTABLE UNLESS REQUESTED NRG Fungus culture [id number] NRG IDENTIFICATION TO FOLLOW NO FURTHER STUDIES [...] 10:30 Bacteria identification in wound by culture [id number] NRG FREE TEXT EXTERNAL SUSCEPTIBILITY REPORTED [...] 10:07 Bacteria identification in wound by culture [id number] NRG FREE TEXT EXTERNAL NO SUSCEPTIBLILTY [...] 7-25 CREATININE 0.73 mg/dL 0.70-1.18 eGFR NON-AFR. INDONESIAN 92 mL/min/1.73m2 > OR = 60 eGFR [...] 0.0-0.1 Blood type T Indirect antibody screen pa david - 08/18/19 14:30 ABO+Rh group AP NRG Blood group antibody screen NEGATIVE NR G Capillary blood glucose measurement by g lucometer (mass/volume) - 08/28/19 10:17 Capillary blood glucose measurement by glucometer (mas s/volume) 109 mg/dL 70-110 Blood type T Indirect antibody screen pa david - 08/28/19 10:25 WRISTBAND NUMBER [id number] NRG ABO+Rh group AP NRG Blood group [...] pa david - 09/05/19 14:22 WRISTBAND NUMBER [id number] NRG ABO+Rh group AP NRG Blood group antibody screen NEGATIVE NR G Bacteria identification in isolate by an aerobe culture - 09/05/19 15:00 Bacteria identification in isolate by anaerobe culture NOANA NRG Gram stain microscopy - 09/05/19 15:00 Gram stain microscopy No bacteria seen NRG Bacteria identification in wound by cult ure - 09/05/19 15:00 Bacteria identification in wound by culture [id number] NRG FREE TEXT EXTERNAL SUSCEPTIBILITY REPORTED [...] 7-25 CREATININE 0.74 mg/dL 0.70-1.18 eGFR NON-AFR. INDONES[place] 92 mL/min/1.73m2 > OR = 60 eGFR [...] urinalysis with reflex to culture YES NRG Bacterial urine culture - 11/12/19 16:07 Bacterial urine culture 3 OR MORE NRG COLONY COUNT 20,000 CFU/ML NRG SUSCEPTIBILITY SUGGESTING PROBABLE COLLECTION NRG MRSA SCREEN CONTAMINATION WITH SKIN JAIME NRG RAPID ID NO SUSCEPTIBILITY PERFORMED N RG Encounters ACCT No. Visit Date/Time Discharge Status Pt. Type Provider Facility Loc./Unit Complaint [id number] 10/16/2019 10:40:00 10/16/2019 23:59: 59 CLS Outpatient KIANNA BARAJAS APRN [facility] [id number] 10/16/2019 10:40:00 Document Registration [id number] 07/30/2019 14:40:00 Document Registration [id number] 07/14/2019 10:00:00 Document Registration [id number] 04/03/2019 10:20:00 Document Registration [id number] 03/28/2019 09:00:00 Document Registration [id number] 12/25/2018 10:20:00 Document Registration [id number] 10/30/2017 10:40:00 Document Registration [id number] 11/17/2019 11:45:00 23:59:59 CLS Preadmit SCOTT LEI MD [facility] RAD COLON CA [id number] 11/17/2019 10:54:00 23:59:59 CLS Outpatient SCOTT LEI MD, V [facility] 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 [id number] 11/13/2019 08:00:00 23:59:59 CLS Preadmit GALO GRIFFIN DO [facility] SDC COLON CANCER [id number] 11/12/2019 12:42:00 23:59:59 CLS Outpatient SCOTT LEI MD, V [facility] ONC [id number] 11/12/2019 15:19:00 18:06:00 DIS Emergency BRET ARREDONDO MD [facility] ER RENAL FAILURE [id number] 11/11/2019 05:41:00 12:56:00 DIS Outpatient GALO GRIFFIN DO [facility] PREOP COLON CANCER [id number] 11/07/2019 09:57:00 23:59:59 CLS Outpatient HONG DUKES MD [facility] RAD LT URETERAL LACERATION [id number] 10/28/2019 13:40:00 23:59:59 CLS Preadmit GALO GRIFFIN DO [facility] ENDO HX OF COLON CA [id number] 10/21/2019 05:38:00 23:59:59 CLS Outpatient GALO GRIFFIN DO [facility] PREOP COLONOSCOPY [id number] 10/17/2019 10:52:00 23:59:59 CLS Outpatient HONG DUKES MD [facility] RAD LT URETERAL LACERATION [id number] 08/28/2019 09:45:00 17:10:00 DIS Inpatient GRIFFIN GALO VIDAL [facility] 4TH COLON CANCER [id number] 08/18/2019 14:04:00 14:38:00 DIS Outpatient GALO GRIFFIN DO [facility] PREOP COLON CANCER [id number] 08/11/2019 14:44:00 23:59:59 CLS Outpatient GALO GRIFFIN DO [facility] RAD COLON CA [id number] 02/12/2019 09:35:00 23:59:59 CLS Outpatient KIANNA PERES MD [facility] WOUNDCARE [id number] 02/05/2019 12:43:00 23:59:59 CLS Outpatient KIANNA PERES MD [facility] WOUNDCARE [id number] 01/29/2019 09:38:00 23:59:59 CLS Outpatient KIANNA PERES MD [facility] WOUNDCARE [id number] 01/22/2019 09:26:00 23:59:59 CLS Outpatient KIANNA PERES MD [facility] WOUNDCARE [id number] 01/15/2019 09:44:00 23:59:59 CLS Outpatient KIANNA PERES MD [facility] WOUNDCARE [id number] 2019 08:40:00 23:59:59 CLS Outpatient KIANNA PERES MD [facility] WOUNDCARE [id number] 03/05/2018 00:09:00 23:59:59 CLS Preadmit MARQUIS COLMENARES APRN [facility] LAB [id number] 12/25/2017 10:53:00 07/16/2 018 00:01:00 DIS Outpatient DEDRA, MARQUIS R [employer] ASSISTANT [facility] LAB [id number] 01/22/2018 08:44:00 018 23:59:59 CLS Outpatient DEDRA, MARQUIS R [employer] ASSISTANT [facility] WOUNDCARE [id number] 01/15/2018 08:58:00 018 23:59:59 CLS Outpatient DEDRA, MARQUIS R [employer] ASSISTANT [facility] WOUNDCARE [id number] 01/08/2018 08:41:00 018 23:59:59 CLS Outpatient DEDRA, MARQUIS R [employer] ASSISTANT [facility] WOUNDCARE [id number] 01/01/2018 08:38:00 018 23:59:59 CLS Outpatient DEDRA, MARQUIS R [employer] ASSISTANT [facility] WOUNDCARE [id number] 12/25/2017 10:09:00 018 23:59:59 CLS Outpatient DEDRA, MARQUIS R [employer] ASSISTANT [facility] WOUNDCARE [id number] 12/17/2017 12:40:00 018 23:59:59 CLS Outpatient DEDRA, MARQUIS R [employer] ASSISTANT [facility] WOUNDCARE [id number] 12/11/2017 09:27:00 018 23:59:59 CLS Outpatient DEDRA, MARQUIS R [employer] ASSISTANT [facility] WOUNDCARE [id number] 12/04/2017 09:53:00 018 23:59:59 CLS Outpatient DEDRA, MARQUIS R [employer] ASSISTANT [facility] WOUNDCARE [id number] 11/27/2017 10:01:00 018 23:59:59 CLS Outpatient DEDRA, MARQUIS R [employer] ASSISTANT [facility] WOUNDCARE [id number] 11/22/2017 14:01:00 018 23:59:59 CLS Outpatient DEDRA, MARQUIS R [employer] ASSISTANT [facility] WOUNDCARE [id number] 11/13/2017 10:49:00 018 23:59:59 CLS Outpatient DEDRA, MARQUIS R [employer] ASSISTANT [facility] WOUNDCARE [id number] 11/06/2017 13:00:00 018 16:21:00 DIS Inpatient BERNARD PAYTON DO [facility] 4TH BILAT LE CELLUL ITIS [id number] 11/06/2017 08:54:00 018 23:59:59 [facility] Outpatient MARQUIS COLMENARES APRN [facility] WOUNDCARE
[2019-11-21 01:25] LABS: BASOPHILS % (AUTO) 0 % (0-10); EOSINOPHILS # (AUTO) 0.2 10^3/uL (0.0-0.3); EOSINOPHILS % (AUTO) 2 % (0-10); HEMATOCRIT 34 % (40-54); HEMOGLOBIN 10.6 G/DL (13.3-17.7); LYMPHOCYTES % (AUTO) 16 % (12-44); MEAN CORPUSCULAR HEMOGLOBIN 25 PG (25-34); MEAN CORPUSCULAR HGB CONC 31 G/DL (32-36); MEAN CORPUSCULAR VOLUME 79 FL (80-99); MEAN PLATELET VOLUME 8.2 FL (7.4-10.4); MONOCYTES # (AUTO) 1.2 X 10^3 (0.0-1.0); MONOCYTES % (AUTO) 10 % (0-12); NEUTROPHILS # (AUTO) 9.1 X 10^3 (1.8-7.8); NEUTROPHILS % (AUTO) 72 % (42-75); PLATELET COUNT 504 10^3/uL (130-400); RED CELL DISTRIBUTION WIDTH 17.3 % (10.0-14.5); WHITE BLOOD COUNT 12.6 10^3/uL (4.3-11.0)
--- NOTE | 2019-11-21 01:26 | ED GU-Female ---
General Chief Complaint: - Urinary Stated Complaint: PT STS CATHETER TAKEN OUT IN A.M.,CAN'T URINATE Source: patient Exam Limitations: no limitations History of Present Illness Date Seen by Provider: Nov 21, 2019 Time Seen by Provider: 01:04 Initial Comments The patient presents to ER by private conveyance from home with chief complaint that he had his Rosales catheter removed within the past [address] Gray's office and has not been able to urinate since then. Nursing staff reports they did a bedside bladder scan revealed almost a liter of fluids. Patient's having pain is radiating up towards his back from his suprapubic region. He had a Rosales catheter placed in the ER 16 [place] secondary to urinary retention due to prostatic hypertrophy. He has been undergoing colon resection by Dr. Bautista and getting set up to start chemotherapy by Dr. Patel for colon cancer. He has scheduled for a Port-A-Cath placement and chemotherapy on the seventh, 4 days from now. He is not having a fever or chills but he does have some mild sinus drainage without tenderness of the face. He just got off antibiotics for his bladder infection about 2 days ago. He's having no constipation, hematuria or diarrhea. He did have a complication of a nicked ureter on colon resection with subsequent splint placement and removal. Allergies and Home Medications Allergies Coded Allergies: No Known Drug Allergies (Unverified , 11/11/19) Home Medications Aspirin 81 Mg Tablet.dr, 81 MG PO DAILY, (Reported) Clopidogrel Bisulfate 75 Mg Tablet, 75 MG PO DAILY, (Reported) Insulin NPH Human Isophane 100 Unit/1 Ml Vial, 33 UNITS SQ DAILY, (Reported) Insulin NPH Human Isophane 100 Unit/1 Ml Vial, 20 UNITS SQ 1930, (Reported) Insulin Regular, Human 100 Unit/1 Ml Vial, 6 UNITS SQ DAILY, (Reported) Insulin Regular, Human 100 Unit/1 Ml Vial, 5 UNITS SQ 1930, (Reported) Lisinopril 20 Mg Tablet, 20 MG PO DAILY, (Reported) Simvastatin 20 Mg Tablet, 20 MG PO HS, (Reported) Patient Home Medication List Home Medication List Reviewed: Yes Review of Systems Review of Systems Constitutional: No chills, No diaphoresis EENTM: see HPI; No ear discharge, No ear pain Respiratory: No cough, No phlegm, No short of breath Cardiovascular: No chest pain Gastrointestinal: No abdominal pain, No loss of appetite, No melena, No nausea Genitourinary: see HPI; denies discharge, denies dysuria Musculoskeletal: see HPI, back pain; No joint pain All Other Systemes Reviewed Negative Unless Noted: Yes Past Scouhoh-Ptlpwl-Hxuetp Hx Patient Social History Alcohol Use: Denies Use Recreational Drug Use: No Smoking Status: Never a Smoker 2nd Hand Smoke Exposure: No Recent Foreign Travel: No Contact w/Someone Who Travel: No Recent Hopitalizations: No Immunizations Up To Date Tetanus Booster (TDap): Unknown Date of Pneumonia Vaccine: Jun 08, 2013 Date of Influenza Vaccine: Jun 13, 2019 Seasonal Allergies Seasonal Allergies: No Past Medical History Surgeries: Yes (BILAT BKA, SEVERAL I&D'S, COLECTOMY) Orthopedic Respiratory: No Cardiac: Yes High Cholesterol, Hypertension Neurological: Yes TIA Genitourinary: Yes Benign Prostatic Hyperpl Gastrointestinal: Yes (COLON CANCER) 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 No Pertinent Family Hx Physical Exam Vital Signs Vital Signs - First Documented 11/21/19 01:06 Temp 36.3 Pulse 117 Resp 20 B/P (MAP) 111/64 (80) Pulse Ox 97 O2 Delivery Room Air Capillary Refill : Height, Weight, BMI Height: 6'2.00" Weight: 201lbs. 5.0oz. 91.090122hs; 25.00 BMI Method:Stated General Appearance: WD/WN, mild distress HEENT: PERRL/EOMI, normal ENT inspection, TMs normal, pharynx normal, other (no tenderness over frontal or maxillary sinuses bilaterally) Neck: non-tender, full range of motion, supple, normal inspection Cardiovascular: normal peripheral pulses, regular rate, rhythm Respiratory: lungs clear, normal breath sounds, no respiratory distress, no accessory muscle use Gastrointestinal: normal bowel sounds, soft, tenderness (suprapubic region with palpable bladder) Back: normal inspection, no CVA tenderness Neurologic/Psychiatric: alert, normal mood/affect, oriented x 3 Procedures/Interventions Date of ETT Placement: Sep 05, 2019 Progress/Results/Core Measures Suspected Sepsis SIRS Temperature: Pulse: Respiratory Rate: Laboratory Tests 11/21/19 01:13: White Blood Count 12.6H Blood Pressure / Mean: Laboratory Tests 11/21/19 01:13: Creatinine 0.93, Platelet Count 504H Results/Orders Lab Results Laboratory Tests Test 11/21/19 01:13 11/21/19 01:25 Range/Units White Blood Count 12.6 H 4.3-11.0 10^3/uL Red Blood Count 4.28 L 4.35-5.85 10^6/uL Hemoglobin 10.6 L 13.3-17.7 G/DL Hematocrit 34 L 40-54 % Mean Corpuscular Volume 79 L 80-99 FL Mean Corpuscular Hemoglobin 25 25-34 PG Mean Corpuscular Hemoglobin Concent 31 L 32-36 G/DL Red Cell Distribution Width 17.3 H 10.0-14.5 % Platelet Count 504 H 130-400 10^3/uL Mean Platelet Volume 8.2 7.4-10.4 FL Neutrophils (%) (Auto) 72 42-75 % Lymphocytes (%) (Auto) 16 12-44 % Monocytes (%) (Auto) 10 0-12 % Eosinophils (%) (Auto) 2 0-10 % Basophils (%) (Auto) 0 0-10 % Neutrophils # (Auto) 9.1 H 1.8-7.8 X 10^3 Lymphocytes # (Auto) 2.0 1.0-4.0 X 10^3 Monocytes # (Auto) 1.2 H 0.0-1.0 X 10^3 Eosinophils # (Auto) 0.2 0.0-0.3 10^3/uL Basophils # (Auto) 0.0 0.0-0.1 10^3/uL Sodium Level 137 135-145 MMOL/L Potassium Level 4.8 3.6-5.0 MMOL/L Chloride Level 99 98-107 MMOL/L Carbon Dioxide Level 27 21-32 MMOL/L Anion Gap 11 5-14 MMOL/L Blood Urea Nitrogen 14 7-18 MG/DL Creatinine 0.93 0.60-1.30 MG/DL Estimat Glomerular Filtration Rate > 60 BUN/Creatinine Ratio 15 Glucose Level 151 H 70-105 MG/DL Calcium Level 9.5 8.5-10.1 MG/DL Urine Color YELLOW Urine Clarity SL CLOUDY Urine pH 7.0 5-9 Urine Specific [place] 1.010 L 1.016-1.022 Urine Protein 2+ H NEGATIVE Urine Glucose (UA) NEGATIVE NEGATIVE Urine Ketones NEGATIVE NEGATIVE Urine Nitrite NEGATIVE NEGATIVE Urine Bilirubin NEGATIVE NEGATIVE Urine Urobilinogen 0.2 < = 1.0 MG/DL Urine Leukocyte Esterase NEGATIVE NEGATIVE Urine RBC (Auto) 2+ H NEGATIVE Urine RBC 25-50 H /HPF Urine WBC RARE /HPF Urine Squamous Epithelial Cells NONE /HPF Urine Crystals NONE /LPF Urine Bacteria TRACE /HPF Urine Casts NONE /LPF Urine Mucus SMALL H /LPF Urine Culture Indicated NO My Orders Orders - BRET ARREDONDO Cbc With Automated Diff (11/21/19 01:19) Basic Metabolic Panel (11/21/19 01:19) Ua Culture If Indicated (11/21/19 01:19) Catheter(Urinary) Insert & Ass 03,15 (11/21/19 01:19) Vital Signs/I&O 11/21/19 01:06 Temp 36.3 Pulse 117 Resp 20 B/P (MAP) 111/64 (80) Pulse Ox 97 O2 Delivery Room Air Capillary Refill : Progress Note #1: Time: 01:24 Progress Note Urinary retention suspected secondary to prostatic hypertrophy. Plan to replace a Rosales catheter. If the urinalysis looks okay then we will not reinitiate antibiotics and just have him follow-up with urology outpatient. We'll obtain basic labs looking for evidence of kidney dysfunction. We may give him fluids if he has some elevated creatinine. Progress Note #2: Time: 01:55 Progress Note The patient put out 850 cc of clear, yellow urine and had immediate improvement in all of his symptoms after placement of Rosales catheter. Labs are unremarkable. Plan to have him follow-up with Dr. Gray outpatient. Departure Impression Primary Impression: Urinary retention due to benign prostatic hyperplasia Disposition: HOME, SELF-CARE Condition: Improved Departure-Patient Inst. Decision time for Depature: 01:56 Referrals: [facility] (PCP) Primary Care Physician KIANNA BRAAJAS (Family) Primary Care Physician Patient Instructions: Benign Prostatic Hyperplasia (Enlarged Prostate), Urinary Retention (DC) Add. Discharge Instructions: Drink plenty of fluids and call Dr. Gray for follow-up in the clinic. All discharge instructions reviewed with patient and/or family. Voiced understanding. BRET ARREDONDO J Nov 21, 2019 01:25
[2019-11-21 01:36] LABS: BUN/CREATININE RATIO 15; CALCIUM 9.5 MG/DL (8.5-10.1); CARBON DIOXIDE 27 MMOL/L (21-32); CHLORIDE 99 MMOL/L (98-107); CREATININE SERUM 0.93 MG/DL (0.60-1.30); GFR ESTIMATED > 60; GLUCOSE 151 MG/DL (70-105); POTASSIUM 4.8 MMOL/L (3.6-5.0); SODIUM 137 MMOL/L (135-145)
[2019-11-21 01:38] LABS: BILIRUBIN,URINE NEGATIVE (NEGATIVE); CLARITY,URINE SL CLOUDY; COLOR,URINE YELLOW; GLUCOSE, URINE (UA) NEGATIVE (NEGATIVE); KETONES,URINE NEGATIVE (NEGATIVE); LEUKOCYTE ESTERASE ,URINE NEGATIVE (NEGATIVE); NITRITE,URINE NEGATIVE (NEGATIVE); PROTEIN,URINE 2+ (NEGATIVE)
[2019-11-21 01:46] LABS: BACTERIA,URINE TRACE /HPF; RBC,URINE 25-50 /HPF; WBC,URINE RARE /HPF
[2019-11-21 02:08] VITALS: BP 105/57
== END 2019-11-21 02:09 | disposition home or self-care (01) ==
LOC: EDUNIT# 00:57 → ER 00:59
DX: N40.0 Benign prostatic hyperplasia without lower urinary tract symptoms (principal); R33.9 Retention of urine, unspecified; Z79.82 Long term (current) use of aspirin; Z79.4 Long term (current) use of insulin; Z79.899 Other long term (current) drug therapy; E78.00 Pure hypercholesterolemia, unspecified; I10 Essential (primary) hypertension; Z86.73 Personal history of transient ischemic attack (TIA), and cerebral infarction without residual deficits; Z85.038 Personal history of other malignant neoplasm of large intestine; E11.9 Type 2 diabetes mellitus without complications; Z92.21 Personal history of antineoplastic chemotherapy; Z89.441 Acquired absence of right ankle; Z89.442 Acquired absence of left ankle
CPT/HCPCS: 36415; 51702; 80048; 81000; 85025

== ENCOUNTER 2019-12-12 14:39 | Outpatient (RCR) | payer MEDICARE, OTHER ==
[2019-11-12 14:30] LABS: BASOPHILS % (AUTO) 0 % (0-10); EOSINOPHILS # (AUTO) 0.1 10^3/uL (0.0-0.3); EOSINOPHILS % (AUTO) 1 % (0-10); HEMATOCRIT 29 % (40-54); HEMOGLOBIN 9.6 G/DL (13.3-17.7); LYMPHOCYTES # (AUTO) 0.6 X 10^3 (1.0-4.0); LYMPHOCYTES % (AUTO) 5 % (12-44); MEAN CORPUSCULAR HEMOGLOBIN 25 PG (25-34); MEAN CORPUSCULAR HGB CONC 34 G/DL (32-36); MEAN CORPUSCULAR VOLUME 75 FL (80-99); MEAN PLATELET VOLUME 8.3 FL (7.4-10.4); MONOCYTES # (AUTO) 1.1 X 10^3 (0.0-1.0); MONOCYTES % (AUTO) 9 % (0-12); NEUTROPHILS # (AUTO) 10.3 X 10^3 (1.8-7.8); NEUTROPHILS % (AUTO) 85 % (42-75); PLATELET COUNT 389 10^3/uL (130-400); RED CELL DISTRIBUTION WIDTH 17.2 % (10.0-14.5); WHITE BLOOD COUNT 12.1 10^3/uL (4.3-11.0)
[2019-11-12 14:44] LABS: ALBUMIN 3.2 GM/DL (3.2-4.5); BILIRUBIN,TOTAL 0.2 MG/DL (0.1-1.0); CALCIUM 8.1 MG/DL (8.5-10.1); CREATININE SERUM 5.66 MG/DL (0.60-1.30); POTASSIUM 4.9 MMOL/L (3.6-5.0); TOTAL PROTEIN 6.1 GM/DL (6.4-8.2)
[2019-11-25 16:07] LABS: CHLORIDE 101 MMOL/L (98-107); POTASSIUM 4.4 MMOL/L (3.6-5.0); SODIUM 137 MMOL/L (135-145)
[2019-11-25 16:09] LABS: CALCIUM 8.8 MG/DL (8.5-10.1); GLUCOSE 169 MG/DL (70-105)
[2019-11-25 16:11] LABS: CARBON DIOXIDE 26 MMOL/L (21-32)
[2019-11-25 16:13] LABS: CREATININE SERUM 0.79 MG/DL (0.60-1.30); GFR ESTIMATED > 60
[2019-11-25 16:14] LABS: BUN/CREATININE RATIO 14
[2019-12-12 14:58] LABS: BASOPHILS % (AUTO) 0 % (0-10); EOSINOPHILS # (AUTO) 0.2 10^3/uL (0.0-0.3); EOSINOPHILS % (AUTO) 2 % (0-10); HEMATOCRIT 33 % (40-54); HEMOGLOBIN 10.1 G/DL (13.3-17.7); LYMPHOCYTES # (AUTO) 1.4 X 10^3 (1.0-4.0); LYMPHOCYTES % (AUTO) 18 % (12-44); MEAN CORPUSCULAR HEMOGLOBIN 26 PG (25-34); MEAN CORPUSCULAR HGB CONC 31 G/DL (32-36); MEAN CORPUSCULAR VOLUME 83 FL (80-99); MEAN PLATELET VOLUME 8.3 FL (7.4-10.4); MONOCYTES # (AUTO) 0.8 X 10^3 (0.0-1.0); MONOCYTES % (AUTO) 10 % (0-12); NEUTROPHILS # (AUTO) 5.6 X 10^3 (1.8-7.8); NEUTROPHILS % (AUTO) 70 % (42-75); PLATELET COUNT 342 10^3/uL (130-400); RED CELL DISTRIBUTION WIDTH 20.1 % (10.0-14.5)
[2019-12-12 15:11] LABS: ALBUMIN 3.8 GM/DL (3.2-4.5); CHLORIDE 99 MMOL/L (98-107); POTASSIUM 4.7 MMOL/L (3.6-5.0); SODIUM 136 MMOL/L (135-145)
[2019-12-12 15:12] LABS: CALCIUM 9.3 MG/DL (8.5-10.1)
[2019-12-12 15:13] LABS: GLUCOSE 217 MG/DL (70-105)
[2019-12-12 15:14] LABS: CARBON DIOXIDE 27 MMOL/L (21-32); TOTAL PROTEIN 6.9 GM/DL (6.4-8.2)
[2019-12-12 15:15] LABS: BILIRUBIN,TOTAL 0.3 MG/DL (0.1-1.0)
[2019-12-12 15:17] LABS: ALKALINE PHOSPHATASE 66 U/L (40-136); CREATININE SERUM 0.91 MG/DL (0.60-1.30); GFR ESTIMATED > 60
[2019-12-12 15:18] LABS: BUN/CREATININE RATIO 15
[2019-12-12 15:20] LABS: ALANINE AMINOTRANSFERASE 13 U/L (0-55)
== END 2019-12-30 | disposition home or self-care (01) ==
LOC: ONC 14:39
PROVIDERS: ATTEND Internal Medicine Hematology & Oncology
DX: C18.7 Malignant neoplasm of sigmoid colon (principal); C77.2 Secondary and unspecified malignant neoplasm of intra-abdominal lymph nodes
CPT/HCPCS: 80048; 80053; 82378; 84153; 85025; 99213; 99214

== ENCOUNTER 2019-12-18 22:42 | Emergency (ER) | payer MEDICARE, OTHER ==
[~2019-12-18] VITALS: Ht 187.9 cm; Wt 92.5 kg
--- OUTSIDE RECORDS SUMMARY | 2019-12-18 22:51 | XMS REPORT | Continuity of Care Document ---
Author Organization Unknown Address Unknown Phone Unavailable Allergies Active Description Code Type Severity Reaction Onset Reported/Identified Relationship to Patient Clinical Status Yes No Known Drug Allergies [id number] Drug Allergy Unknown N/A 11/11/2019 Medications There is no data. Problems Date Dx Coded Attending Type Code Diagnosis Diagnosed By 11/07/2017 MARQUIS COLMENARES APRN Ot L03.116 CELLULITIS OF LEFT LOWER LIMB 11/07/2017 MARQUIS COLMENARES APRN Ot Z89.512 ACQUIRED ABSENCE OF LEFT LEG BELOW KNEE 11/09/2017 [facility] Ot E11.9 TYPE 2 DIABETES MELLITUS WITHOUT COMPLIC [facility] Ot E78.00 PURE HYPERCHOLESTEROLEMIA, UNSPECIFIED 11/09/2017 [facility] Ot I10 ESSENTIAL (PRIMARY) HYPERTENSION 11/09[facility] Ot L03.115 CELLULITIS OF RIGHT LOWER LIMB [facility] L03.116 CELLULITIS OF LEFT LOWER LIMB 11/09/2017 [facility] Ot N40.0 BENIGN PROSTATIC HYPERPLASIA WITHOUT LOW 11/09/2017 [facility] Ot T87.43 INFECTION OF AMPUTATION STUMP, RIGHT LOW 11/09/2017 [facility] Ot T87.44 INFECTION OF AMPUTATION STUMP, LEFT LOWE 11/09/2017 [facility] Ot Z79.4 CONNIE CLEANER (CURRENT) USE OF INSULIN 11/09/2017 [facility] DO Ot 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 RIGHT LEG BELOW KNEE 11/09/2017 [facility] DO Ot Z89.512 ACQUIRED ABSENCE OF LEFT LEG BELOW KNEE 11/14/2017 MARQUIS COLMENARES APRN Ot B36.9 SUPERFICIAL MYCOSIS, UNSPECIFIED 11/14/2017 DEDRA, MARQUIS R INVESTIGATOR NARCOTICS Ot L03.116 CELLULITIS OF LEFT LOWER LIMB 11/14/2017 DEDRA MARQUIS R INVESTIGATOR NARCOTICS Ot L97.122 NON-PRESSURE CHRONIC ULCER OF LEFT THIGH 11/14/2017 MARQUIS COLMENARES R INVESTIGATOR NARCOTICS Ot Z89.512 ACQUIRED ABSENCE OF LEFT LEG BELOW KNEE 11/22/2017 DEDRA MARQUIS R INVESTIGATOR NARCOTICS Ot L03.116 CELLULITIS OF LEFT LOWER LIMB 11/22/2017 MARQUIS COLMENARES R INVESTIGATOR NARCOTICS Ot Z89.512 ACQUIRED ABSENCE OF LEFT LEG BELOW KNEE 11/26/2017 MARQUIS COLMENARES R INVESTIGATOR NARCOTICS Ot B36.9 SUPERFICIAL MYCOSIS, UNSPECIFIED 11/26/2017 DEDRA MARQUIS R INVESTIGATOR NARCOTICS Ot L03.116 CELLULITIS OF LEFT LOWER LIMB 11/26/2017 DEDRA MARQUIS R INVESTIGATOR NARCOTICS Ot L97.122 NON-PRESSURE CHRONIC ULCER OF LEFT THIGH 11/26/2017 DEDRA MARQUIS R INVESTIGATOR NARCOTICS Ot Z89.512 ACQUIRED ABSENCE OF LEFT LEG BELOW KNEE 11/26/2017 MARQUIS COLMENARES R INVESTIGATOR NARCOTICS Ot B36.9 SUPERFICIAL MYCOSIS, UNSPECIFIED 11/26/2017 MARQUIS COLMENARES R INVESTIGATOR NARCOTICS Ot L03.116 CELLULITIS OF LEFT LOWER LIMB 11/26/2017 DEDRA MARQUIS R INVESTIGATOR NARCOTICS Ot L97.122 NON-PRESSURE CHRONIC ULCER OF LEFT THIGH 11/26/2017 MARQUIS COLMENARES R INVESTIGATOR NARCOTICS Ot Z89.512 ACQUIRED ABSENCE OF LEFT LEG BELOW KNEE 11/28/2017 MARQUIS COLMENARES R INVESTIGATOR NARCOTICS Ot B36.9 SUPERFICIAL MYCOSIS, UNSPECIFIED 11/28/2017 DEDRA MARQUIS R INVESTIGATOR NARCOTICS Ot L03.116 CELLULITIS OF LEFT LOWER LIMB 11/28/2017 DEDRA MARQUIS R INVESTIGATOR NARCOTICS Ot L97.122 NON-PRESSURE CHRONIC ULCER OF LEFT THIGH 11/28/2017 DEDRA MARQUIS R INVESTIGATOR NARCOTICS Ot Z89.512 ACQUIRED ABSENCE OF LEFT LEG BELOW KNEE 12/04/2017 DEDRA MARQUIS R INVESTIGATOR NARCOTICS Ot L03.116 CELLULITIS OF LEFT LOWER LIMB 12/04/2017 MARQUIS COLMENARES R INVESTIGATOR NARCOTICS Ot Z89.512 ACQUIRED ABSENCE OF LEFT LEG BELOW KNEE 12/05/2017 MARQUIS COLMENARES R INVESTIGATOR NARCOTICS Ot B36.9 SUPERFICIAL MYCOSIS, UNSPECIFIED 12/05/2017 MARQUIS COLMENARES R INVESTIGATOR NARCOTICS Ot L03.116 CELLULITIS OF LEFT LOWER LIMB 12/05/2017 DEDRA, MARQUIS R INVESTIGATOR NARCOTICS Ot L97.122 NON-PRESSURE CHRONIC ULCER OF LEFT THIGH 12/05/2017 DEDRA MARQUIS R INVESTIGATOR NARCOTICS Ot Z89.512 ACQUIRED ABSENCE OF LEFT LEG BELOW KNEE 12/12/2017 MARQUIS COLMENARES R INVESTIGATOR NARCOTICS Ot B36.9 SUPERFICIAL MYCOSIS, UNSPECIFIED 12/12/2017 DEDRA MARQUIS R INVESTIGATOR NARCOTICS Ot L03.116 CELLULITIS OF LEFT LOWER LIMB 12/12/2017 DEDRA MARQUIS R INVESTIGATOR NARCOTICS Ot L97.122 NON-PRESSURE CHRONIC ULCER OF LEFT THIGH 12/12/2017 MARQUIS COLMENARES R INVESTIGATOR NARCOTICS Ot Z89.512 ACQUIRED ABSENCE OF LEFT LEG BELOW KNEE 12/18/2017 MARQUIS COLMENARES R INVESTIGATOR NARCOTICS Ot B36.9 SUPERFICIAL MYCOSIS, UNSPECIFIED 12/18/2017 DEDRAMARQUIS R INVESTIGATOR NARCOTICS Ot L03.116 CELLULITIS OF LEFT LOWER LIMB 12/18/2017 DEDRA MARQUIS R INVESTIGATOR NARCOTICS Ot L97.121 NON-PRS CHRONIC ULCER OF LEFT THIGH LIMI 12/18/2017 DEDRA MARQUIS R INVESTIGATOR NARCOTICS Ot L97.122 NON-PRESSURE CHRONIC ULCER OF LEFT THIGH 12/18/2017 MARQUIS COLMENARES R INVESTIGATOR NARCOTICS Ot Z89.512 ACQUIRED ABSENCE OF LEFT LEG BELOW KNEE 12/18/2017 MARQUIS COLMENARES R INVESTIGATOR NARCOTICS Ot B36.9 SUPERFICIAL MYCOSIS, UNSPECIFIED 12/18/2017 MARQUIS COLMENARES R INVESTIGATOR NARCOTICS Ot L03.116 CELLULITIS OF LEFT LOWER LIMB 12/18/2017 DEDRA MARQUIS R INVESTIGATOR NARCOTICS Ot L97.122 NON-PRESSURE CHRONIC ULCER OF LEFT THIGH 12/18/2017 MARQUIS COLMENARES R INVESTIGATOR NARCOTICS Ot Z89.512 ACQUIRED ABSENCE OF LEFT LEG BELOW KNEE 12/20/2017 MARQUIS COLMENARES R INVESTIGATOR NARCOTICS Ot B36.9 SUPERFICIAL MYCOSIS, UNSPECIFIED 12/20/2017 DEDRA MARQUIS R INVESTIGATOR NARCOTICS Ot L03.116 CELLULITIS OF LEFT LOWER LIMB 12/20/2017 DEDRA MARQUIS R INVESTIGATOR NARCOTICS Ot L97.122 NON-PRESSURE CHRONIC ULCER OF LEFT THIGH 12/20/2017 MARQUIS COLMENARES R INVESTIGATOR NARCOTICS Ot Z89.512 ACQUIRED ABSENCE OF LEFT LEG BELOW KNEE 12/21/2017 MARQUIS COLMENARES R INVESTIGATOR NARCOTICS Ot B36.9 SUPERFICIAL MYCOSIS, UNSPECIFIED 12/21/2017 MARQUIS COLMENARES R INVESTIGATOR NARCOTICS Ot L03.116 CELLULITIS OF LEFT LOWER LIMB 12/21/2017 DEDRA, MARQUIS R INVESTIGATOR NARCOTICS Ot L97.121 NON-PRS CHRONIC ULCER OF LEFT THIGH LIMI 12/21/2017 DEDRA MARQUIS R INVESTIGATOR NARCOTICS Ot L97.122 NON-PRESSURE CHRONIC ULCER OF LEFT THIGH 12/21/2017 MARQUIS COLMENARES INVESTIGATOR NARCOTICS Ot Z89.512 ACQUIRED ABSENCE OF LEFT LEG BELOW KNEE 12/24/2017 MARQUIS COLMENARES INVESTIGATOR NARCOTICS Ot B36.9 SUPERFICIAL MYCOSIS, UNSPECIFIED 12/24/2017 MARQUIS COLMENARES R INVESTIGATOR NARCOTICS Ot L03.116 CELLULITIS OF LEFT LOWER LIMB 12/24/2017 DEDRA MARQUIS R INVESTIGATOR NARCOTICS Ot L97.122 NON-PRESSURE CHRONIC ULCER OF LEFT THIGH 12/24/2017 DEDRA MARQUIS R INVESTIGATOR NARCOTICS Ot Z89.512 ACQUIRED ABSENCE OF LEFT LEG BELOW KNEE 12/25/2017 MARQUIS COLMENARES R INVESTIGATOR NARCOTICS Ot B36.9 SUPERFICIAL MYCOSIS, UNSPECIFIED 12/25/2017 DEDRA MARQUIS R INVESTIGATOR NARCOTICS Ot L03.116 CELLULITIS OF LEFT LOWER LIMB 12/25/2017 MARQUIS COLMENARES INVESTIGATOR NARCOTICS Ot L97.122 NON-PRESSURE CHRONIC ULCER OF LEFT THIGH 12/25/2017 MARQUIS COLMENARES R INVESTIGATOR NARCOTICS Ot Z89.512 ACQUIRED ABSENCE OF LEFT LEG BELOW KNEE 12/27/2017 MARQUIS COLMENARES R INVESTIGATOR NARCOTICS Ot B36.9 SUPERFICIAL MYCOSIS, UNSPECIFIED 12/27/2017 MARQUIS COLMENARES R INVESTIGATOR NARCOTICS Ot L03.116 CELLULITIS OF LEFT LOWER LIMB 12/27/2017 DEDRA MARQUIS R INVESTIGATOR NARCOTICS Ot L97.121 NON-PRS CHRONIC ULCER OF LEFT THIGH LIMI 12/27/2017 MARQUIS COLMENARES INVESTIGATOR NARCOTICS Ot L97.122 NON-PRESSURE CHRONIC ULCER OF LEFT THIGH 12/27/2017 MARQUIS COLMENARES R INVESTIGATOR NARCOTICS Ot Z89.512 ACQUIRED ABSENCE OF LEFT LEG BELOW KNEE 01/02/2018 MARQUIS COLMENARES R INVESTIGATOR NARCOTICS Ot B36.9 SUPERFICIAL MYCOSIS, UNSPECIFIED 01/02/2018 MARQUIS COLMENARES R INVESTIGATOR NARCOTICS Ot L03.116 CELLULITIS OF LEFT LOWER LIMB 01/02/2018 MARQUIS COLMENARES R INVESTIGATOR NARCOTICS Ot L97.122 NON-PRESSURE CHRONIC ULCER OF LEFT THIGH 01/02/2018 MARQUIS COLMENARES R INVESTIGATOR NARCOTICS Ot Z89.512 ACQUIRED ABSENCE OF LEFT LEG BELOW KNEE 01/03/2018 MARQUIS COLMENARES R INVESTIGATOR NARCOTICS Ot B36.9 SUPERFICIAL MYCOSIS, UNSPECIFIED 01/03/2018 MARQUIS COLMENARES R INVESTIGATOR NARCOTICS Ot L03.116 CELLULITIS OF LEFT LOWER LIMB 01/03/2018 MARQUIS COLMENARES INVESTIGATOR NARCOTICS Ot L97.121 NON-PRS CHRONIC ULCER OF LEFT THIGH LIMI 01/03/2018 MARQUIS COLMENARES R INVESTIGATOR NARCOTICS Ot L97.122 NON-PRESSURE CHRONIC ULCER OF LEFT THIGH 01/03/2018 MARQUIS COLMENARES R INVESTIGATOR NARCOTICS Ot Z89.512 ACQUIRED ABSENCE OF LEFT LEG BELOW KNEE 01/07/2018 MARQUIS COLMENARES R INVESTIGATOR NARCOTICS Ot B36.9 SUPERFICIAL MYCOSIS, UNSPECIFIED 01/07/2018 DEDRA MARQUIS R INVESTIGATOR NARCOTICS Ot L03.116 CELLULITIS OF LEFT LOWER LIMB 01/07/2018 DEDRA MARQUIS R INVESTIGATOR NARCOTICS Ot L97.122 NON-PRESSURE CHRONIC ULCER OF LEFT THIGH 01/07/2018 MARQUIS COLMENARES R INVESTIGATOR NARCOTICS Ot Z89.512 ACQUIRED ABSENCE OF LEFT LEG BELOW KNEE 01/07/2018 MARQUIS COLMENARES INVESTIGATOR NARCOTICS Ot B36.9 SUPERFICIAL MYCOSIS, UNSPECIFIED 01/07/2018 MARQUIS COLMENARES R INVESTIGATOR NARCOTICS Ot L03.116 CELLULITIS OF LEFT LOWER LIMB 01/07/2018 DEDRA MARQUIS R INVESTIGATOR NARCOTICS Ot L97.122 NON-PRESSURE CHRONIC ULCER OF LEFT THIGH 01/07/2018 MARQUIS COLMENARES R INVESTIGATOR NARCOTICS Ot Z89.512 ACQUIRED ABSENCE OF LEFT LEG BELOW KNEE 01/07/2018 MARQUIS COLMENARES R INVESTIGATOR NARCOTICS Ot B36.9 SUPERFICIAL MYCOSIS, UNSPECIFIED 01/07/2018 MARQUIS COLMENARES R INVESTIGATOR NARCOTICS Ot L03.116 CELLULITIS OF LEFT LOWER LIMB 01/07/2018 MARQUIS COLMENARES INVESTIGATOR NARCOTICS Ot L97.122 NON-PRESSURE CHRONIC ULCER OF LEFT THIGH 01/07/2018 MARQUIS COLMENARES R INVESTIGATOR NARCOTICS Ot Z89.512 ACQUIRED ABSENCE OF LEFT LEG BELOW KNEE 01/07/2018 MARQUIS COLMENARES R INVESTIGATOR NARCOTICS Ot B36.9 SUPERFICIAL MYCOSIS, UNSPECIFIED 01/07/2018 MARQUIS COLMENARES R INVESTIGATOR NARCOTICS Ot L03.116 CELLULITIS OF LEFT LOWER LIMB 01/07/2018 MARQUIS COLMENARES R INVESTIGATOR NARCOTICS Ot L97.122 NON-PRESSURE CHRONIC ULCER OF LEFT THIGH 01/07/2018 MARQUIS COLMENARES R INVESTIGATOR NARCOTICS Ot Z89.512 ACQUIRED ABSENCE OF LEFT LEG BELOW KNEE 01/08/2018 MARQUIS COLMENARES R INVESTIGATOR NARCOTICS Ot B36.9 SUPERFICIAL MYCOSIS, UNSPECIFIED 01/08/2018 MARQUIS COLMENARES INVESTIGATOR NARCOTICS Ot L03.116 CELLULITIS OF LEFT LOWER LIMB 01/08/2018 MARQUIS COLMENARES INVESTIGATOR NARCOTICS Ot L97.121 NON-PRS CHRONIC ULCER OF LEFT THIGH LIMI 01/08/2018 MARQUIS COLMENARES INVESTIGATOR NARCOTICS Ot L97.122 NON-PRESSURE CHRONIC ULCER OF LEFT THIGH 01/08/2018 MARQUIS COLMENARES INVESTIGATOR NARCOTICS Ot Z89.512 ACQUIRED ABSENCE OF LEFT LEG BELOW KNEE 01/08/2018 MARQUIS COLMENARES INVESTIGATOR NARCOTICS Ot Z51.81 ENCOUNTER FOR THERAPEUTIC DRUG LEVEL MON 01/08/2018 MARQUIS COLMENARES INVESTIGATOR NARCOTICS Ot Z79.899 OTHER [facility]ARE HOME (CURRENT) DRUG THERAPY 01/09/2018 MARQUIS COLMENARES INVESTIGATOR NARCOTICS Ot B36.9 SUPERFICIAL MYCOSIS, UNSPECIFIED 01/09/2018 MARQUIS COLMENARES INVESTIGATOR NARCOTICS Ot L03.116 CELLULITIS OF LEFT LOWER LIMB 01/09/2018 MARQUIS COLMENARES INVESTIGATOR NARCOTICS Ot L97.121 NON-PRS CHRONIC ULCER OF LEFT THIGH LIMI 01/09/2018 MARQUIS COLMENARES R INVESTIGATOR NARCOTICS Ot Z89.512 ACQUIRED ABSENCE OF LEFT LEG BELOW KNEE 01/14/2018 MARQUIS COLMENARES R INVESTIGATOR NARCOTICS Ot B36.9 SUPERFICIAL MYCOSIS, UNSPECIFIED 01/14/2018 MARQUIS COLMENARES R INVESTIGATOR NARCOTICS Ot L03.116 CELLULITIS OF LEFT LOWER LIMB 01/14/2018 MARQUIS COLMENARES INVESTIGATOR NARCOTICS Ot L97.121 NON-PRS CHRONIC ULCER OF LEFT THIGH LIMI 01/14/2018 MARQUIS COLMENARES INVESTIGATOR NARCOTICS Ot Z89.512 ACQUIRED ABSENCE OF LEFT LEG BELOW KNEE 01/16/2018 MARQUIS COLMENARES INVESTIGATOR NARCOTICS Ot B36.9 SUPERFICIAL MYCOSIS, UNSPECIFIED 01/16/2018 MARQUIS COLMENARES R INVESTIGATOR NARCOTICS Ot L03.116 CELLULITIS OF LEFT LOWER LIMB 01/16/2018 MARQUIS COLMENARES R INVESTIGATOR NARCOTICS Ot L97.121 NON-PRS CHRONIC ULCER OF LEFT THIGH LIMI 01/16/2018 MARQUIS COLMENARES R INVESTIGATOR NARCOTICS Ot Z89.512 ACQUIRED ABSENCE OF LEFT LEG BELOW KNEE 01/16/2018 MARQUIS COLMENARES R INVESTIGATOR NARCOTICS Ot B36.9 SUPERFICIAL MYCOSIS, UNSPECIFIED 01/16/2018 MARQUIS COLMENARES R INVESTIGATOR NARCOTICS Ot L03.116 CELLULITIS OF LEFT LOWER LIMB 01/16/2018 MARQUIS COLMENARES INVESTIGATOR NARCOTICS Ot L97.121 NON-PRS CHRONIC ULCER OF LEFT THIGH LIMI 01/16/2018 DEDRA MARQUIS R INVESTIGATOR NARCOTICS Ot L97.122 NON-PRESSURE CHRONIC ULCER OF LEFT THIGH 01/16/2018 DEDRA MARQUIS R INVESTIGATOR NARCOTICS Ot Z89.512 ACQUIRED ABSENCE OF LEFT LEG BELOW KNEE 01/22/2018 DEDRA MARQUIS R INVESTIGATOR NARCOTICS Ot B36.9 SUPERFICIAL MYCOSIS, UNSPECIFIED 01/22/2018 DEDRA MARQUIS R INVESTIGATOR NARCOTICS Ot L03.116 CELLULITIS OF LEFT LOWER LIMB 01/22/2018 DEDRA MARQUIS R INVESTIGATOR NARCOTICS Ot L97.121 NON-PRS CHRONIC ULCER OF LEFT THIGH LIMI 01/22/2018 DEDRA MARQUIS R INVESTIGATOR NARCOTICS Ot L97.122 NON-PRESSURE CHRONIC ULCER OF LEFT THIGH 01/22/2018 DEDRA MARQUIS R INVESTIGATOR NARCOTICS Ot Z89.512 ACQUIRED ABSENCE OF LEFT LEG BELOW KNEE 01/23/2018 DEDRA MARQUIS R INVESTIGATOR NARCOTICS Ot B36.9 SUPERFICIAL MYCOSIS, UNSPECIFIED 01/23/2018 DEDRA MARQUIS R INVESTIGATOR NARCOTICS Ot L03.116 CELLULITIS OF LEFT LOWER LIMB 01/23/2018 MARQUIS COLMENARES R INVESTIGATOR NARCOTICS Ot L97.122 NON-PRESSURE CHRONIC ULCER OF LEFT THIGH 01/23/2018 DEDRA MARQUIS R INVESTIGATOR NARCOTICS Ot Z89.512 ACQUIRED ABSENCE OF LEFT LEG BELOW KNEE 01/23/2018 MARQUIS COLMENARES R INVESTIGATOR NARCOTICS Ot B36.9 SUPERFICIAL MYCOSIS, UNSPECIFIED 01/23/2018 DEDRA MARQUIS R INVESTIGATOR NARCOTICS Ot L03.116 CELLULITIS OF LEFT LOWER LIMB 01/23/2018 DEDRA MARQUIS R INVESTIGATOR NARCOTICS Ot L97.122 NON-PRESSURE CHRONIC ULCER OF LEFT THIGH 01/23/2018 DEDRA MARQUIS R INVESTIGATOR NARCOTICS Ot Z89.512 ACQUIRED ABSENCE OF LEFT LEG BELOW KNEE 01/28/2018 DEDRA MARQUIS R INVESTIGATOR NARCOTICS Ot B36.9 SUPERFICIAL MYCOSIS, UNSPECIFIED 01/28/2018 DEDRA MARQUIS R INVESTIGATOR NARCOTICS Ot L03.116 CELLULITIS OF LEFT LOWER LIMB 01/28/2018 DEDRA MARQUIS R INVESTIGATOR NARCOTICS Ot L97.122 NON-PRESSURE CHRONIC ULCER OF LEFT THIGH 01/28/2018 DEDRA MARQUIS R INVESTIGATOR NARCOTICS Ot Z89.512 ACQUIRED ABSENCE OF LEFT LEG BELOW KNEE 01/30/2018 DEDRA MARQUIS R INVESTIGATOR NARCOTICS Ot B36.9 SUPERFICIAL MYCOSIS, UNSPECIFIED 01/30/2018 DEDRA MARQUIS R INVESTIGATOR NARCOTICS Ot L03.116 CELLULITIS OF LEFT LOWER LIMB 01/30/2018 DEDRAPASCUALN R INVESTIGATOR NARCOTICS Ot L97.121 NON-PRS CHRONIC ULCER OF LEFT THIGH LIMI 01/30/2018 DEDRA MARQUIS R INVESTIGATOR NARCOTICS Ot Z89.512 ACQUIRED ABSENCE OF LEFT LEG BELOW KNEE 02/01/2018 MARQUIS COLMENARES R INVESTIGATOR NARCOTICS Ot B36.9 SUPERFICIAL MYCOSIS, UNSPECIFIED 02/01/2018 MARQUIS COLMENARES R INVESTIGATOR NARCOTICS Ot L03.116 CELLULITIS OF LEFT LOWER LIMB 02/01/2018 MARQUIS COLMENARES R INVESTIGATOR NARCOTICS Ot L97.121 NON-PRS CHRONIC ULCER OF LEFT THIGH LIMI 02/01/2018 DEDRA MARQUIS R INVESTIGATOR NARCOTICS Ot L97.122 NON-PRESSURE CHRONIC ULCER OF LEFT THIGH 02/01/2018 MARQUIS COLMENARES R INVESTIGATOR NARCOTICS Ot Z89.512 ACQUIRED ABSENCE OF LEFT LEG BELOW KNEE 02/04/2018 MARQUIS COLMENARES R INVESTIGATOR NARCOTICS Ot B36.9 SUPERFICIAL MYCOSIS, UNSPECIFIED 02/04/2018 MARQUIS COLMENARES R INVESTIGATOR NARCOTICS Ot L03.116 CELLULITIS OF LEFT LOWER LIMB 02/04/2018 MARQUIS COLMENARES R INVESTIGATOR NARCOTICS Ot L97.121 NON-PRS CHRONIC ULCER OF LEFT THIGH LIMI 02/04/2018 DEDRA MARQUIS R INVESTIGATOR NARCOTICS Ot L97.122 NON-PRESSURE CHRONIC ULCER OF LEFT THIGH 02/04/2018 MARQUIS COLMENARES R INVESTIGATOR NARCOTICS Ot Z89.512 ACQUIRED ABSENCE OF LEFT LEG BELOW KNEE 02/05/2018 MARQUIS COLMENARES R INVESTIGATOR NARCOTICS Ot B36.9 SUPERFICIAL MYCOSIS, UNSPECIFIED 02/05/2018 MARQUIS COLMENARES INVESTIGATOR NARCOTICS Ot L03.116 CELLULITIS OF LEFT LOWER LIMB 02/05/2018 MARQUIS COLMENARES INVESTIGATOR NARCOTICS Ot L97.121 NON-PRS CHRONIC ULCER OF LEFT THIGH LIMI 02/05/2018 MARQUIS COLMENARES R INVESTIGATOR NARCOTICS Ot Z89.512 ACQUIRED ABSENCE OF LEFT LEG BELOW KNEE 02/13/2018 MARQUIS COLMENARES INVESTIGATOR NARCOTICS Ot B36.9 SUPERFICIAL MYCOSIS, UNSPECIFIED 02/13/2018 MARQUIS COLMENARES R INVESTIGATOR NARCOTICS Ot L03.116 CELLULITIS OF LEFT LOWER LIMB 02/13/2018 MARQUIS COLMENARES R INVESTIGATOR NARCOTICS Ot L97.122 NON-PRESSURE CHRONIC ULCER OF LEFT THIGH 02/13/2018 MARQUIS COLMENARES R INVESTIGATOR NARCOTICS Ot Z89.512 ACQUIRED ABSENCE OF LEFT LEG BELOW KNEE 03/01/2018 DEDRA MARQUIS Torres INVESTIGATOR NARCOTICS Ot B36.9 SUPERFICIAL MYCOSIS, UNSPECIFIED 03/01/2018 MARQUIS COLMENARES R INVESTIGATOR NARCOTICS Ot L03.116 CELLULITIS OF LEFT LOWER LIMB 03/01/2018 MARQUIS COLMENARES INVESTIGATOR NARCOTICS Ot L97.121 NON-PRS CHRONIC ULCER OF LEFT THIGH LIMI 03/01/2018 DEDRA MARQUIS Torres INVESTIGATOR NARCOTICS Ot Z89.512 ACQUIRED ABSENCE OF LEFT LEG BELOW KNEE 03/01/2018 MARQUIS COLMENARES INVESTIGATOR NARCOTICS Ot B36.9 SUPERFICIAL MYCOSIS, UNSPECIFIED 03/01/2018 MARQUIS COLMENARES R INVESTIGATOR NARCOTICS Ot L03.116 CELLULITIS OF LEFT LOWER LIMB 03/01/2018 MARQUIS COLMENARES R INVESTIGATOR NARCOTICS Ot L97.121 NON-PRS CHRONIC ULCER OF LEFT THIGH LIMI 03/01/2018 MARQUIS COLMENARES INVESTIGATOR NARCOTICS Ot Z89.512 ACQUIRED ABSENCE OF LEFT LEG BELOW KNEE 03/04/2018 MARQUIS COLMENARES INVESTIGATOR NARCOTICS Ot Z51.81 ENCOUNTER FOR THERAPEUTIC DRUG LEVEL MON 03/04/2018 MARQUIS COLMENARES R INVESTIGATOR NARCOTICS Ot Z79.899 OTHER [facility] HOME (CURRENT) DRUG THERAPY 03/05/2018 MARQUIS COLMENARES R INVESTIGATOR NARCOTICS Ot Z51.81 ENCOUNTER FOR THERAPEUTIC DRUG LEVEL MON 03/05/2018 MARQUIS COLMENARES R INVESTIGATOR NARCOTICS Ot Z79.899 OTHER [facility] (CURRENT) DRUG THERAPY 03/11/2018 MARQUIS COLMENARES INVESTIGATOR NARCOTICS Ot B36.9 SUPERFICIAL MYCOSIS, UNSPECIFIED 03/11/2018 MARQUIS COLMENARES INVESTIGATOR NARCOTICS Ot L03.116 CELLULITIS OF LEFT LOWER LIMB 03/11/2018 MARQUIS COLMENARES INVESTIGATOR NARCOTICS Ot L97.122 NON-PRESSURE CHRONIC ULCER OF LEFT THIGH 03/11/2018 MARQUIS COLMENARES INVESTIGATOR NARCOTICS Ot Z89.512 ACQUIRED ABSENCE OF LEFT LEG BELOW KNEE 2019 MARQUIS COLMENARES R INVESTIGATOR NARCOTICS Ot L03.116 CELLULITIS OF LEFT LOWER LIMB 2019 MARQUIS COLMENARES INVESTIGATOR NARCOTICS Ot Z89.512 ACQUIRED ABSENCE OF LEFT LEG BELOW KNEE 2019 MARQUIS COLMENARES INVESTIGATOR NARCOTICS Ot B36.9 SUPERFICIAL MYCOSIS, UNSPECIFIED 2019 MARQUIS COLMENARES INVESTIGATOR NARCOTICS Ot L03.116 CELLULITIS OF LEFT LOWER LIMB 2019 MARQUIS COLMENARES INVESTIGATOR NARCOTICS Ot L97.122 NON-PRESSURE CHRONIC ULCER OF LEFT THIGH 2019 DEDRA MARQUIS R INVESTIGATOR NARCOTICS Ot Z89.512 ACQUIRED ABSENCE OF LEFT LEG BELOW KNEE 2019 DEDRAMARQUIS R INVESTIGATOR NARCOTICS Ot B36.9 SUPERFICIAL MYCOSIS, UNSPECIFIED 2019 DEDRA MARQUIS R INVESTIGATOR NARCOTICS Ot L03.116 CELLULITIS OF LEFT LOWER LIMB 2019 DEDRA MARQUIS R INVESTIGATOR NARCOTICS Ot L97.122 NON-PRESSURE CHRONIC ULCER OF LEFT THIGH 2019 DEDRA MARQUIS R INVESTIGATOR NARCOTICS Ot Z89.512 ACQUIRED ABSENCE OF LEFT LEG BELOW KNEE 2019 DEDRA MARQUIS R INVESTIGATOR NARCOTICS Ot B36.9 SUPERFICIAL MYCOSIS, UNSPECIFIED 2019 DEDRA MARQUIS R INVESTIGATOR NARCOTICS Ot L03.116 CELLULITIS OF LEFT LOWER LIMB 2019 DEDRA MARQUIS R INVESTIGATOR NARCOTICS Ot L97.122 NON-PRESSURE CHRONIC ULCER OF LEFT THIGH 2019 MARQUIS COLMENARES R INVESTIGATOR NARCOTICS Ot Z89.512 ACQUIRED ABSENCE OF LEFT LEG BELOW KNEE 2019 DEDRA MARQUIS R INVESTIGATOR NARCOTICS Ot B36.9 SUPERFICIAL MYCOSIS, UNSPECIFIED 2019 DEDRA MARQUIS R INVESTIGATOR NARCOTICS Ot L03.116 CELLULITIS OF LEFT LOWER LIMB 2019 DEDRA MARQUIS R INVESTIGATOR NARCOTICS Ot L97.122 NON-PRESSURE CHRONIC ULCER OF LEFT THIGH 2019 MARQUIS COLMENARES R INVESTIGATOR NARCOTICS Ot Z89.512 ACQUIRED ABSENCE OF LEFT LEG BELOW KNEE 2019 MARQUIS COLMENARES R INVESTIGATOR NARCOTICS Ot B36.9 SUPERFICIAL MYCOSIS, UNSPECIFIED 2019 MARQUIS COLMENARES R INVESTIGATOR NARCOTICS Ot L03.116 CELLULITIS OF LEFT LOWER LIMB 2019 DEDRA MARQUIS R INVESTIGATOR NARCOTICS Ot L97.122 NON-PRESSURE CHRONIC ULCER OF LEFT THIGH 2019 MARQUIS COLMENARES R INVESTIGATOR NARCOTICS Ot Z89.512 ACQUIRED ABSENCE OF LEFT LEG BELOW KNEE 2019 MARQUIS COLMENARES R INVESTIGATOR NARCOTICS Ot B36.9 SUPERFICIAL MYCOSIS, UNSPECIFIED 2019 DEDRA MARQUIS R INVESTIGATOR NARCOTICS Ot L03.116 CELLULITIS OF LEFT LOWER LIMB 2019 DEDRA MAQRUIS R INVESTIGATOR NARCOTICS Ot L97.121 NON-PRS CHRONIC ULCER OF LEFT THIGH LIMI 2019 DEDRA MARQUIS R INVESTIGATOR NARCOTICS Ot L97.122 NON-PRESSURE CHRONIC ULCER OF LEFT THIGH 2019 DEDRA MARQUIS R INVESTIGATOR NARCOTICS Ot Z89.512 ACQUIRED ABSENCE OF LEFT LEG BELOW KNEE 2019 MARQUIS COLMENARES R INVESTIGATOR NARCOTICS Ot B36.9 SUPERFICIAL MYCOSIS, UNSPECIFIED 2019 MARQUIS COLMENARES R INVESTIGATOR NARCOTICS Ot L03.116 CELLULITIS OF LEFT LOWER LIMB 2019 MARQUIS COLMENARES R INVESTIGATOR NARCOTICS Ot L97.121 NON-PRS CHRONIC ULCER OF LEFT THIGH LIMI 2019 DEDRA MARQUIS R INVESTIGATOR NARCOTICS Ot L97.122 NON-PRESSURE CHRONIC ULCER OF LEFT THIGH 2019 DEDRA MARQUIS R INVESTIGATOR NARCOTICS Ot Z89.512 ACQUIRED ABSENCE OF LEFT LEG BELOW KNEE 2019 MARQUIS COLMENARES R INVESTIGATOR NARCOTICS Ot B36.9 SUPERFICIAL MYCOSIS, UNSPECIFIED 2019 MARQUIS COLMENARES R INVESTIGATOR NARCOTICS Ot L03.116 CELLULITIS OF LEFT LOWER LIMB 2019 MARQUIS COLMENARES INVESTIGATOR NARCOTICS Ot L97.121 NON-PRS CHRONIC ULCER OF LEFT THIGH LIMI 2019 MARQUIS COLMENARES R INVESTIGATOR NARCOTICS Ot L97.122 NON-PRESSURE CHRONIC ULCER OF LEFT THIGH 2019 MARQUIS COLMENARES R INVESTIGATOR NARCOTICS Ot Z89.512 ACQUIRED ABSENCE OF LEFT LEG BELOW KNEE 2019 MARQUIS COLMENARES R INVESTIGATOR NARCOTICS Ot B36.9 SUPERFICIAL MYCOSIS, UNSPECIFIED 2019 MARQUIS COLMENARES R INVESTIGATOR NARCOTICS Ot L03.116 CELLULITIS OF LEFT LOWER LIMB 2019 MARQUIS COLMENARES R INVESTIGATOR NARCOTICS Ot L97.121 NON-PRS CHRONIC ULCER OF LEFT THIGH LIMI 2019 MARQUIS COLMENARES R INVESTIGATOR NARCOTICS Ot Z89.512 ACQUIRED ABSENCE OF LEFT LEG BELOW KNEE 2019 MARQUIS COLMENARES R INVESTIGATOR NARCOTICS Ot B36.9 SUPERFICIAL MYCOSIS, UNSPECIFIED 2019 MARQUIS COLMENARES R INVESTIGATOR NARCOTICS Ot L03.116 CELLULITIS OF LEFT LOWER LIMB 2019 MARQUIS COLMENARES R INVESTIGATOR NARCOTICS Ot L97.121 NON-PRS CHRONIC ULCER OF LEFT THIGH LIMI 2019 MARQUIS COLMENARES R INVESTIGATOR NARCOTICS Ot Z89.512 ACQUIRED ABSENCE OF LEFT LEG BELOW KNEE 2019 MARQUIS COLMENARES R INVESTIGATOR NARCOTICS Ot B36.9 SUPERFICIAL MYCOSIS, UNSPECIFIED 2019 MARQUIS COLMENARES APRN Ot L03.116 CELLULITIS OF LEFT LOWER LIMB 2019 MARQUIS COLMENARES APRN Ot L97.122 NON-PRESSURE CHRONIC ULCER OF LEFT THIGH 2019 MARQUIS COLMENARES APRN Ot Z89.512 ACQUIRED ABSENCE OF LEFT LEG BELOW KNEE 2019 MARQUIS COLMENARES APRN Ot Z51.81 ENCOUNTER FOR THERAPEUTIC DRUG LEVEL MON 2019 MARQUIS COLMENARES APRN Ot Z79.899 OTHER CONNIE CLEANER (CURRENT) DRUG THERAPY 01/17/2019 KIANNA PERES MD, [...] 01/31/2019 KIANNA PERES MD, Ot 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 01/31/2019 [...] GRIFFIN DO, GALO D Ot Z79. 4 CARE HOME (CURRENT) USE OF INSULIN 08/29/2019 GRIFFIN [...] GRIFFIN DO, GALO D Ot Z79. 4 CONNIE CLEANER (CURRENT) USE OF INSULIN 08/30/2019 GRIFFIN DO, [...] GRIFFIN DO, GALO D Ot Z79. 4 CARE HOME (CURRENT) USE OF INSULIN 09/05/2019 GRIFFIN [...] GRIFFIN DO, GALO D Ot Z79. 4 CARE HOME (CURRENT) USE OF INSULIN 09/05/2019 GRIFFIN [...] GRIFFIN DO, GALO D Ot Z79. 4 CARE HOME (CURRENT) USE OF INSULIN 09/05/2019 GRIFFIN [...] LAC OF A SYS ORG D 09/06/2019 GIRFFIN DO, GALO D Ot Z79. 4 CARE HOME (CURRENT) USE OF INSULIN 09/06/2019 GRIFFIN [...] GRIFFIN DO, GALO D Ot Z79. 4 CARE HOME (CURRENT) USE OF INSULIN 09/07/2019 GRIFFIN [...] GRIFFIN DO, GALO D Ot Z79. 4 CARE HOME (CURRENT) USE OF INSULIN 09/08/2019 GRIFFIN [...] GRIFFIN DO, GALO D Ot Z79. 4 CARE HOME (CURRENT) USE OF INSULIN 09/08/2019 GRIFFIN [...] GRIFFIN DO, GALO D Ot Z79. 4 CONNIE CLEANER (CURRENT) USE OF INSULIN 09/09/2019 GRIFFIN DO, [...] D Ot E78. 5 [facility], [facility]09[facility]. [facility] DE[facility]DRATION 09/09/2019 [facility] [facility] 6 [facility] ESSENTIAL (PRIMARY) HYPERTENSION 09/09/2019 [facility]. 0 NONRHEUMATIC AORTIC (VALVE) STENOSIS 09/09/2019 [facility]. 9 HYPOTENSION, UNSPECIFIED 09/09/2019 [facility] J18. 9 PNEUMONIA, UNSPECIFIED ORGANISM 09/09/2019 [facility]. 8 PLEURAL EFFUSION IN OTHER CONDITIONS CLA 09/09/2019 [facility]. 00 ACUTE RESPIRATORY FAILURE, UNSP W HYPOXI 09/09/2019 [facility] K56. 50 INTESTNL ADHESIONS, UNSP TO PARTIAL V 09/09/2019 [facility]. 7 ILEUS, UNSPECIFIED 09/09/2019 [facility]. 89 OTH POSTPROCEDURAL COMPLICATIONS AND DIS 09/09/2019 [facility] N40. 0 BENIGN PROSTATIC HYPERPLASIA WITHOUT LOW 09/09/2019 [facility] N99. 72 ACCIDENTAL PNCTR LAC OF A SYS ORG D 09/09/2019 [facility] R33. 9 RETENTION OF URINE, UNSPECIFIED 09/09/2019 [facility]. 4 CARE HOME (CURRENT) USE OF INSULIN 09/09/2019 [facility]. 73 PRSNL HX OF TIA (TIA), AND CEREB INFRC W 09/09/2019 [facility] 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 RIGHT LEG BELOW KNEE 09/09/2019 [facility].512 ACQUIRED ABSENCE OF LEFT LEG BELOW KNEE 10/15/2019 MARQUIS COLMENARES APRN Ot L03.116 CELLULITIS OF LEFT LOWER LIMB 10/15/2019 MARQUIS COLMENARES APRN Ot Z89.512 ACQUIRED ABSENCE OF LEFT LEG BELOW KNEE 10/15/2019 DEDRA AMRQUIS R INVESTIGATOR NARCOTICS Ot B36.9 SUPERFICIAL MYCOSIS, UNSPECIFIED 10/15/2019 DEDRA, MARQUIS R INVESTIGATOR NARCOTICS Ot L03.116 CELLULITIS OF LEFT LOWER LIMB 10/15/2019 DEDRA, MARQUIS R INVESTIGATOR NARCOTICS Ot L97.122 NON-PRESSURE CHRONIC ULCER OF LEFT THIGH 10/15/2019 DEDRA MARQUIS R INVESTIGATOR NARCOTICS Ot Z89.512 ACQUIRED ABSENCE OF LEFT LEG BELOW KNEE 10/15/2019 DEDRA, MARQUIS R INVESTIGATOR NARCOTICS Ot B36.9 SUPERFICIAL MYCOSIS, UNSPECIFIED 10/15/2019 DEDRA, MARQUIS R INVESTIGATOR NARCOTICS Ot L03.116 CELLULITIS OF LEFT LOWER LIMB 10/15/2019 DEDRA, MARQUIS R INVESTIGATOR NARCOTICS Ot L97.122 NON-PRESSURE CHRONIC ULCER OF LEFT THIGH 10/15/2019 DEDRA MARQUIS R INVESTIGATOR NARCOTICS Ot Z89.512 ACQUIRED ABSENCE OF LEFT LEG BELOW KNEE 10/15/2019 DEDRA MARQUIS R INVESTIGATOR NARCOTICS Ot B36.9 SUPERFICIAL MYCOSIS, UNSPECIFIED 10/15/2019 DEDRA, MARQUIS R INVESTIGATOR NARCOTICS Ot L03.116 CELLULITIS OF LEFT LOWER LIMB 10/15/2019 DEDAR, MARQUIS R INVESTIGATOR NARCOTICS Ot L97.122 NON-PRESSURE CHRONIC ULCER OF LEFT THIGH 10/15/2019 DEDRA MARQUIS R INVESTIGATOR NARCOTICS Ot Z89.512 ACQUIRED ABSENCE OF LEFT LEG BELOW KNEE 10/15/2019 DEDRA MARQUIS R INVESTIGATOR NARCOTICS Ot B36.9 SUPERFICIAL MYCOSIS, UNSPECIFIED 10/15/2019 DEDRA, MARQUIS R INVESTIGATOR NARCOTICS Ot L03.116 CELLULITIS OF LEFT LOWER LIMB 10/15/2019 DEDRA MARQUIS R INVESTIGATOR NARCOTICS Ot L97.122 NON-PRESSURE CHRONIC ULCER OF LEFT THIGH 10/15/2019 DEDRA MARQUIS R INVESTIGATOR NARCOTICS Ot Z89.512 ACQUIRED ABSENCE OF LEFT LEG BELOW KNEE 10/15/2019 DEDRA, MARQUIS R INVESTIGATOR NARCOTICS Ot B36.9 SUPERFICIAL MYCOSIS, UNSPECIFIED 10/15/2019 DEDRA, MARQUIS R INVESTIGATOR NARCOTICS Ot L03.116 CELLULITIS OF LEFT LOWER LIMB 10/15/2019 DEDRA, MARQUIS R INVESTIGATOR NARCOTICS Ot L97.122 NON-PRESSURE CHRONIC ULCER OF LEFT THIGH 10/15/2019 DEDRA MARQUIS R INVESTIGATOR NARCOTICS Ot Z89.512 ACQUIRED ABSENCE OF LEFT LEG BELOW KNEE 10/15/2019 DEDRA, MARQUIS R INVESTIGATOR NARCOTICS Ot B36.9 SUPERFICIAL MYCOSIS, UNSPECIFIED 10/15/2019 DEDRA MARQUIS R INVESTIGATOR NARCOTICS Ot L03.116 CELLULITIS OF LEFT LOWER LIMB 10/15/2019 DEDRA MARQUIS R INVESTIGATOR NARCOTICS Ot L97.121 NON-PRS CHRONIC ULCER OF LEFT THIGH LIMI 10/15/2019 DEDRA, MARUQIS R INVESTIGATOR NARCOTICS Ot L97.122 NON-PRESSURE CHRONIC ULCER OF LEFT THIGH 10/15/2019 DEDRA MARQUIS R INVESTIGATOR NARCOTICS Ot Z89.512 ACQUIRED ABSENCE OF LEFT LEG BELOW KNEE 10/15/2019 DEDRA MARQUIS R INVESTIGATOR NARCOTICS Ot B36.9 SUPERFICIAL MYCOSIS, UNSPECIFIED 10/15/2019 DEDRA MARQUIS R INVESTIGATOR NARCOTICS Ot L03.116 CELLULITIS OF LEFT LOWER LIMB 10/15/2019 DEDRA MARQUIS R INVESTIGATOR NARCOTICS Ot L97.121 NON-PRS CHRONIC ULCER OF LEFT THIGH LIMI 10/15/2019 DEDRA MARQUIS R INVESTIGATOR NARCOTICS Ot L97.122 NON-PRESSURE CHRONIC ULCER OF LEFT THIGH 10/15/2019 DEDRA MARQUIS R INVESTIGATOR NARCOTICS Ot Z89.512 ACQUIRED ABSENCE OF LEFT LEG BELOW KNEE 10/15/2019 DEDRA MARQUIS R INVESTIGATOR NARCOTICS Ot B36.9 SUPERFICIAL MYCOSIS, UNSPECIFIED 10/15/2019 DEDRA MARQUIS R INVESTIGATOR NARCOTICS Ot L03.116 CELLULITIS OF LEFT LOWER LIMB 10/15/2019 DEDAR MARQUIS R INVESTIGATOR NARCOTICS Ot L97.121 NON-PRS CHRONIC ULCER OF LEFT THIGH LIMI 10/15/2019 DEDRA MARQUIS R INVESTIGATOR NARCOTICS Ot L97.122 NON-PRESSURE CHRONIC ULCER OF LEFT THIGH 10/15/2019 DEDRA MARQUIS R INVESTIGATOR NARCOTICS Ot Z89.512 ACQUIRED ABSENCE OF LEFT LEG BELOW KNEE 10/15/2019 DEDRA MARQUIS R INVESTIGATOR NARCOTICS Ot B36.9 SUPERFICIAL MYCOSIS, UNSPECIFIED 10/15/2019 DEDRA MARQUIS R INVESTIGATOR NARCOTICS Ot L03.116 CELLULITIS OF LEFT LOWER LIMB 10/15/2019 DEDRA MARQUIS R INVESTIGATOR NARCOTICS Ot L97.121 NON-PRS CHRONIC ULCER OF LEFT THIGH LIMI 10/15/2019 DEDRA MARQUIS R INVESTIGATOR NARCOTICS Ot Z89.512 ACQUIRED ABSENCE OF LEFT LEG BELOW KNEE 10/15/2019 DEDRA MARQUIS R INVESTIGATOR NARCOTICS Ot B36.9 SUPERFICIAL MYCOSIS, UNSPECIFIED 10/15/2019 DEDRA, MARQUIS R INVESTIGATOR NARCOTICS Ot L03.116 CELLULITIS OF LEFT LOWER LIMB 10/15/2019 DEDRA MARQUIS R INVESTIGATOR NARCOTICS Ot L97.121 NON-PRS CHRONIC ULCER OF LEFT THIGH LIMI 10/15/2019 MARQUIS COLMENARES INVESTIGATOR NARCOTICS Ot Z89.512 ACQUIRED ABSENCE OF LEFT LEG BELOW KNEE 10/15/2019 MARQUIS COLMENARES INVESTIGATOR NARCOTICS Ot B36.9 SUPERFICIAL MYCOSIS, UNSPECIFIED 10/15/2019 MARQUIS COLMENARES R INVESTIGATOR NARCOTICS Ot L03.116 CELLULITIS OF LEFT LOWER LIMB 10/15/2019 MARQUIS COLMENARES INVESTIGATOR NARCOTICS Ot L97.122 NON-PRESSURE CHRONIC ULCER OF LEFT THIGH 10/15/2019 MARQUIS COLMENARES INVESTIGATOR NARCOTICS Ot Z89.512 ACQUIRED ABSENCE OF LEFT LEG BELOW KNEE 10/15/2019 MARQUIS COLMENARES INVESTIGATOR NARCOTICS Ot Z51.81 ENCOUNTER FOR THERAPEUTIC DRUG LEVEL MON 10/15/2019 MARQUIS COLMENARES INVESTIGATOR NARCOTICS Ot Z79.899 OTHER CARE HOME (CURRENT) DRUG THERAPY 10/15/2019 KIANNA PERES MD, Ot E11.622 TYPE 2 DIABETES MELLITUS WITH OTHER SKIN 10/15/2019 KIANNA PERES MD, Ot 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 10/15/2019 [...] UNSP MALIGNANT NEOPLASM OF 10/17/2019 MARQUIS COLMENARES INVESTIGATOR NARCOTICS Ot L03.116 CELLULITIS OF LEFT LOWER LIMB [...] LEG BELOW KNEE 10/17/2019 DEDRA, MARQUIS R INVESTIGATOR NARCOTICS Ot B36.9 SUPERFICIAL MYCOSIS, UNSPECIFIED 10/17/2019 DEDRA, MARQUIS R INVESTIGATOR NARCOTICS Ot L03.116 CELLULITIS OF LEFT LOWER LIMB 10/17/2019 DEDRA MARQUIS R INVESTIGATOR NARCOTICS Ot L97.122 NON-PRESSURE CHRONIC ULCER OF LEFT THIGH 10/17/2019 DEDRA MARQUIS R INVESTIGATOR NARCOTICS Ot Z89.512 ACQUIRED ABSENCE OF LEFT LEG BELOW KNEE 10/17/2019 DEDRA MARQUIS R INVESTIGATOR NARCOTICS Ot B36.9 SUPERFICIAL MYCOSIS, UNSPECIFIED 10/17/2019 DEDRA, MARQUIS R INVESTIGATOR NARCOTICS Ot L03.116 CELLULITIS OF LEFT LOWER LIMB 10/17/2019 DEDRA, MARQUIS R INVESTIGATOR NARCOTICS Ot L97.122 NON-PRESSURE CHRONIC ULCER OF LEFT THIGH 10/17/2019 DEDRA MARQUIS R INVESTIGATOR NARCOTICS Ot Z89.512 ACQUIRED ABSENCE OF LEFT LEG BELOW KNEE 10/17/2019 DEDRA MARQUIS R INVESTIGATOR NARCOTICS Ot B36.9 SUPERFICIAL MYCOSIS, UNSPECIFIED 10/17/2019 DEDRA MARQUIS R INVESTIGATOR NARCOTICS Ot L03.116 CELLULITIS OF LEFT LOWER LIMB 10/17/2019 DEDRA MARQUIS R INVESTIGATOR NARCOTICS Ot L97.122 NON-PRESSURE CHRONIC ULCER OF LEFT THIGH 10/17/2019 DEDRA MARQUIS R INVESTIGATOR NARCOTICS Ot Z89.512 ACQUIRED ABSENCE OF LEFT LEG BELOW KNEE 10/17/2019 DEDRA MARQUIS R INVESTIGATOR NARCOTICS Ot B36.9 SUPERFICIAL MYCOSIS, UNSPECIFIED 10/17/2019 DEDRA, MARQUIS R INVESTIGATOR NARCOTICS Ot L03.116 CELLULITIS OF LEFT LOWER LIMB 10/17/2019 DEDRA MARQUIS R INVESTIGATOR NARCOTICS Ot L97.122 NON-PRESSURE CHRONIC ULCER OF LEFT THIGH 10/17/2019 DEDRA MARQUIS R INVESTIGATOR NARCOTICS Ot Z89.512 ACQUIRED ABSENCE OF LEFT LEG BELOW KNEE 10/17/2019 DEDRA MARQUIS R INVESTIGATOR NARCOTICS Ot B36.9 SUPERFICIAL MYCOSIS, UNSPECIFIED 10/17/2019 DEDRA, MARQUIS R INVESTIGATOR NARCOTICS Ot L03.116 CELLULITIS OF LEFT LOWER LIMB 10/17/2019 DEDRA MARQUIS R INVESTIGATOR NARCOTICS Ot L97.121 NON-PRS CHRONIC ULCER OF LEFT THIGH LIMI 10/17/2019 DEDRA MARQUIS R INVESTIGATOR NARCOTICS Ot L97.122 NON-PRESSURE CHRONIC ULCER OF LEFT THIGH 10/17/2019 DEDRA MARQUIS R INVESTIGATOR NARCOTICS Ot Z89.512 ACQUIRED ABSENCE OF LEFT LEG BELOW KNEE 10/17/2019 DEDRA MARQUIS R INVESTIGATOR NARCOTICS Ot B36.9 SUPERFICIAL MYCOSIS, UNSPECIFIED 10/17/2019 DEDRA MARQUIS R INVESTIGATOR NARCOTICS Ot L03.116 CELLULITIS OF LEFT LOWER LIMB 10/17/2019 DEDRA MARQUIS R INVESTIGATOR NARCOTICS Ot L97.121 NON-PRS CHRONIC ULCER OF LEFT THIGH LIMI 10/17/2019 DEDRA MARQUIS R INVESTIGATOR NARCOTICS Ot L97.122 NON-PRESSURE CHRONIC ULCER OF LEFT THIGH 10/17/2019 DEDRA MARQUIS R INVESTIGATOR NARCOTICS Ot Z89.512 ACQUIRED ABSENCE OF LEFT LEG BELOW KNEE 10/17/2019 DEDRA MARQUIS R INVESTIGATOR NARCOTICS Ot B36.9 SUPERFICIAL MYCOSIS, UNSPECIFIED 10/17/2019 DEDRA MARQUIS R INVESTIGATOR NARCOTICS Ot L03.116 CELLULITIS OF LEFT LOWER LIMB 10/17/2019 DEDRA MARQUIS R INVESTIGATOR NARCOTICS Ot L97.121 NON-PRS CHRONIC ULCER OF LEFT THIGH LIMI 10/17/2019 DEDRA MARQUIS R INVESTIGATOR NARCOTICS Ot L97.122 NON-PRESSURE CHRONIC ULCER OF LEFT THIGH 10/17/2019 DEDRA MARQUIS R INVESTIGATOR NARCOTICS Ot Z89.512 ACQUIRED ABSENCE OF LEFT LEG BELOW KNEE 10/17/2019 DEDRA MARQUIS R INVESTIGATOR NARCOTICS Ot B36.9 SUPERFICIAL MYCOSIS, UNSPECIFIED 10/17/2019 DEDRA MARQUIS R INVESTIGATOR NARCOTICS Ot L03.116 CELLULITIS OF LEFT LOWER LIMB 10/17/2019 DEDRA MARQUIS R INVESTIGATOR NARCOTICS Ot L97.121 NON-PRS CHRONIC ULCER OF LEFT THIGH LIMI 10/17/2019 DEDRA MARQUIS R INVESTIGATOR NARCOTICS Ot Z89.512 ACQUIRED ABSENCE OF LEFT LEG BELOW KNEE 10/17/2019 DEDRA MARQUIS R INVESTIGATOR NARCOTICS Ot B36.9 SUPERFICIAL MYCOSIS, UNSPECIFIED 10/17/2019 DEDRA MARQUIS R INVESTIGATOR NARCOTICS Ot L03.116 CELLULITIS OF LEFT LOWER LIMB 10/17/2019 DEDRA MARQUIS R INVESTIGATOR NARCOTICS Ot L97.121 NON-PRS CHRONIC ULCER OF LEFT THIGH LIMI 10/17/2019 DEDRA MARQUIS R INVESTIGATOR NARCOTICS Ot Z89.512 ACQUIRED ABSENCE OF LEFT LEG BELOW KNEE 10/17/2019 DEDRA MARQUIS R INVESTIGATOR NARCOTICS Ot B36.9 SUPERFICIAL MYCOSIS, UNSPECIFIED 10/17/2019 DEDRA MARQUIS R INVESTIGATOR NARCOTICS Ot L03.116 CELLULITIS OF LEFT LOWER LIMB 10/17/2019 DEDRA MARQUIS R INVESTIGATOR NARCOTICS Ot L97.122 NON-PRESSURE CHRONIC ULCER OF LEFT THIGH 10/17/2019 MARQUIS COLMENARES APRN Ot Z89.512 ACQUIRED ABSENCE OF LEFT LEG BELOW KNEE 10/17/2019 MARQUIS COLMENARES INVESTIGATOR NARCOTICS Ot Z51.81 ENCOUNTER FOR THERAPEUTIC DRUG LEVEL MON 10/17/2019 MARQUIS COLMENARES APRN Ot Z79.899 OTHER CONNIE CLEANER (CURRENT) DRUG THERAPY 10/17/2019 KIANNA PERES MD, Ot E11.622 TYPE 2 DIABETES MELLITUS WITH OTHER SKIN 10/17/2019 KIANNA PERES MD, Ot 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 10/17/2019 [...] 11/11/2019 MARQUIS COLMENARES APRN Ot Z79.899 OTHER CONNIE CLEANER (CURRENT) DRUG THERAPY 11/11/2019 GALO GRIFFIN DO [...] PERSONAL HISTORY OF ANTINEOPLASTIC CHEMO 11/13/2019 SCOTT LEI MD Ot C18.7 MALIGNANT NEOPLASM [...] HISTORY OF ANTINEOPLASTIC CHEMO 11/18/2019 MARQUIS COLMENARES INVESTIGATOR NARCOTICS Ot L03.116 CELLULITIS OF LEFT LOWER LIMB 11/18/2019 MARQUIS COLMENARES INVESTIGATOR NARCOTICS Ot Z89.512 ACQUIRED ABSENCE OF LEFT LEG BELOW KNEE 11/18/2019 DEDRA, MARQUIS R INVESTIGATOR NARCOTICS Ot B36.9 SUPERFICIAL MYCOSIS, UNSPECIFIED 11/18/2019 DEDRA, MARQUIS R INVESTIGATOR NARCOTICS Ot L03.116 CELLULITIS OF LEFT LOWER LIMB 11/18/2019 DEDRA, MARQUIS R INVESTIGATOR NARCOTICS Ot L97.122 NON-PRESSURE CHRONIC ULCER OF LEFT THIGH 11/18/2019 DEDRA, MARQUIS R INVESTIGATOR NARCOTICS Ot Z89.512 ACQUIRED ABSENCE OF LEFT LEG BELOW KNEE 11/18/2019 DEDRA, MARQUIS R INVESTIGATOR NARCOTICS Ot B36.9 SUPERFICIAL MYCOSIS, UNSPECIFIED 11/18/2019 DEDRA, MARQUIS R INVESTIGATOR NARCOTICS Ot L03.116 CELLULITIS OF LEFT LOWER LIMB 11/18/2019 DEDRA, MARQUIS R INVESTIGATOR NARCOTICS Ot L97.122 NON-PRESSURE CHRONIC ULCER OF LEFT THIGH 11/18/2019 DEDRA, MARQUIS R INVESTIGATOR NARCOTICS Ot Z89.512 ACQUIRED ABSENCE OF LEFT LEG BELOW KNEE 11/18/2019 DEDRA, MARQUIS R INVESTIGATOR NARCOTICS Ot B36.9 SUPERFICIAL MYCOSIS, UNSPECIFIED 11/18/2019 DEDRA, MARQUIS R INVESTIGATOR NARCOTICS Ot L03.116 CELLULITIS OF LEFT LOWER LIMB 11/18/2019 DEDRA, MARQUIS R INVESTIGATOR NARCOTICS Ot L97.122 NON-PRESSURE CHRONIC ULCER OF LEFT THIGH 11/18/2019 DEDRA, MARQUIS R INVESTIGATOR NARCOTICS Ot Z89.512 ACQUIRED ABSENCE OF LEFT LEG BELOW KNEE 11/18/2019 DEDRA, MARQUIS R INVESTIGATOR NARCOTICS Ot B36.9 SUPERFICIAL MYCOSIS, UNSPECIFIED 11/18/2019 DEDRA, MARQUIS R INVESTIGATOR NARCOTICS Ot L03.116 CELLULITIS OF LEFT LOWER LIMB 11/18/2019 DEDRA, MARQUIS R INVESTIGATOR NARCOTICS Ot L97.122 NON-PRESSURE CHRONIC ULCER OF LEFT THIGH 11/18/2019 DEDRA, MARQUIS R INVESTIGATOR NARCOTICS Ot Z89.512 ACQUIRED ABSENCE OF LEFT LEG BELOW KNEE 11/18/2019 DEDRA, MARQUIS R INVESTIGATOR NARCOTICS Ot B36.9 SUPERFICIAL MYCOSIS, UNSPECIFIED 11/18/2019 DEDRA, MARQUIS R INVESTIGATOR NARCOTICS Ot L03.116 CELLULITIS OF LEFT LOWER LIMB 11/18/2019 DEDRA, MARQUIS R INVESTIGATOR NARCOTICS Ot L97.122 NON-PRESSURE CHRONIC ULCER OF LEFT THIGH 11/18/2019 DEDRA, MARQUIS R INVESTIGATOR NARCOTICS Ot Z89.512 ACQUIRED ABSENCE OF LEFT LEG BELOW KNEE 11/18/2019 DEDRA, MARQUIS R INVESTIGATOR NARCOTICS Ot B36.9 SUPERFICIAL MYCOSIS, UNSPECIFIED 11/18/2019 DEDRA, MARQUIS R INVESTIGATOR NARCOTICS Ot L03.116 CELLULITIS OF LEFT LOWER LIMB 11/18/2019 DEDRA MARQUIS R INVESTIGATOR NARCOTICS Ot L97.121 NON-PRS CHRONIC ULCER OF LEFT THIGH LIMI 11/18/2019 DEDRA, MARQUIS R INVESTIGATOR NARCOTICS Ot L97.122 NON-PRESSURE CHRONIC ULCER OF LEFT THIGH 11/18/2019 DEDRA MARQUIS R INVESTIGATOR NARCOTICS Ot Z89.512 ACQUIRED ABSENCE OF LEFT LEG BELOW KNEE 11/18/2019 DEDRA MARQUIS R INVESTIGATOR NARCOTICS Ot B36.9 SUPERFICIAL MYCOSIS, UNSPECIFIED 11/18/2019 DEDRA MARQUIS R INVESTIGATOR NARCOTICS Ot L03.116 CELLULITIS OF LEFT LOWER LIMB 11/18/2019 DEDRA, MARQUIS R INVESTIGATOR NARCOTICS Ot L97.121 NON-PRS CHRONIC ULCER OF LEFT THIGH LIMI 11/18/2019 DEDRA, MARQUIS R INVESTIGATOR NARCOTICS Ot L97.122 NON-PRESSURE CHRONIC ULCER OF LEFT THIGH 11/18/2019 DEDRA MARQUIS R INVESTIGATOR NARCOTICS Ot Z89.512 ACQUIRED ABSENCE OF LEFT LEG BELOW KNEE 11/18/2019 DEDRA MARQUIS R INVESTIGATOR NARCOTICS Ot B36.9 SUPERFICIAL MYCOSIS, UNSPECIFIED 11/18/2019 DEDRA MARQUIS R INVESTIGATOR NARCOTICS Ot L03.116 CELLULITIS OF LEFT LOWER LIMB 11/18/2019 DEDRA MARQUIS R INVESTIGATOR NARCOTICS Ot L97.121 NON-PRS CHRONIC ULCER OF LEFT THIGH LIMI 11/18/2019 DEDRA MARQUIS R INVESTIGATOR NARCOTICS Ot L97.122 NON-PRESSURE CHRONIC ULCER OF LEFT THIGH 11/18/2019 DEDRA MARQUIS R INVESTIGATOR NARCOTICS Ot Z89.512 ACQUIRED ABSENCE OF LEFT LEG BELOW KNEE 11/18/2019 DEDRA MARQUIS R INVESTIGATOR NARCOTICS Ot B36.9 SUPERFICIAL MYCOSIS, UNSPECIFIED 11/18/2019 DEDRA MARQUIS R INVESTIGATOR NARCOTICS Ot L03.116 CELLULITIS OF LEFT LOWER LIMB 11/18/2019 DEDRA MARQUIS R INVESTIGATOR NARCOTICS Ot L97.121 NON-PRS CHRONIC ULCER OF LEFT THIGH LIMI 11/18/2019 DEDRA, MARQUIS R INVESTIGATOR NARCOTICS Ot Z89.512 ACQUIRED ABSENCE OF LEFT LEG BELOW KNEE 11/18/2019 DEDRA, MARQUIS R INVESTIGATOR NARCOTICS Ot B36.9 SUPERFICIAL MYCOSIS, UNSPECIFIED 11/18/2019 DEDRA, MARQUIS R INVESTIGATOR NARCOTICS Ot L03.116 CELLULITIS OF LEFT LOWER LIMB 11/18/2019 DEDRA, MARQUIS R INVESTIGATOR NARCOTICS Ot L97.121 NON-PRS CHRONIC ULCER OF LEFT THIGH LIMI 11/18/2019 MARQUIS COLMENARES INVESTIGATOR NARCOTICS Ot Z89.512 ACQUIRED ABSENCE OF LEFT LEG BELOW KNEE 11/18/2019 MARQUIS COLMENARES INVESTIGATOR NARCOTICS Ot B36.9 SUPERFICIAL MYCOSIS, UNSPECIFIED 11/18/2019 MARQUIS COLMENARES INVESTIGATOR NARCOTICS Ot L03.116 CELLULITIS OF LEFT LOWER LIMB 11/18/2019 MARQUIS COLMENARES INVESTIGATOR NARCOTICS Ot L97.122 NON-PRESSURE CHRONIC ULCER OF LEFT THIGH 11/18/2019 MARQUIS COLMENARES INVESTIGATOR NARCOTICS Ot Z89.512 ACQUIRED ABSENCE OF LEFT LEG BELOW KNEE 11/18/2019 MARQUIS COLMENARES INVESTIGATOR NARCOTICS Ot Z51.81 ENCOUNTER FOR THERAPEUTIC DRUG LEVEL MON 11/18/2019 MARQUIS COLMENARES INVESTIGATOR NARCOTICS Ot Z79.899 OTHER CARE HOME (CURRENT) DRUG THERAPY 11/18/2019 KIANNA PERES MD, Ot E11.622 TYPE 2 DIABETES MELLITUS WITH OTHER SKIN 11/18/2019 KIANNA PERES MD, Ot 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 11/18/2019 [...] R91.8 OTHER NONSPECIFIC ABNORMAL FINDING OF VISHAL 11/21/2019 BRET ARREDONDO MD Ot E11. 9 TYPE 2 DIABETES MELLITUS WITHOUT COMPLIC 11/21/2019 BRET ARREDONDO MD Ot E78. 00 PURE HYPERCHOLESTEROLEMIA, UNSPECIFIED 11/21/2019 BRET ARREDONDO MD Ot I10 ESSENTIAL (PRIMARY) HYPERTENSION 11/21/2019 BRET ARREDONDO MD Ot N40. 1 BENIGN PROSTATIC HYPERPLASIA WITH LOWER 11/21/2019 BRET ARREDONDO MD Ot R33. 8 OTHER RETENTION OF URINE 11/21/2019 BRET ARREDONDO MD Ot R33. 9 RETENTION OF URINE, UNSPECIFIED 11/21/2019 BRET ARREDONDO MD, Ot Z79. 4 CARE HOME (CURRENT) USE OF INSULIN 11/21/2019 BRET ARREDONDO MD Ot Z79. 82 CARE HOME (CURRENT) USE OF ASPIRIN 11/21/2019 BRET ARREDONDO MD, Ot Z79.899 OTHER CONNIE CLEANER (CURRENT) DRUG THERAPY 11/21/2019 BRET ARREDONDO MD, Ot Z85.038 PERSONAL HISTORY OF MALIGNANT NEOPLASM O 11/21/2019 BRET ARREDONDO MD, Ot Z86. 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 9 TYPE 2 DIABETES MELLITUS WITHOUT COMPLIC 11/24/2019 BRET ARREDONDO MD, Ot E78. 00 PURE HYPERCHOLESTEROLEMIA, UNSPECIFIED 11/24/2019 BRET ARREDONDO MD Ot I10 ESSENTIAL (PRIMARY) HYPERTENSION 11/24/2019 BRET ARREDONDO MD Ot N40. 0 BENIGN PROSTATIC HYPERPLASIA WITHOUT LOW 11/24/2019 BRET ARREDONDO MD Ot R33. 9 RETENTION OF URINE, UNSPECIFIED 11/24/2019 BRET ARREDONDO MD Ot Z79. 4 CONNIE CLEANER (CURRENT) USE OF INSULIN 11/24/2019 BRET ARREDONDO MD Ot Z79. 82 CONNIE CLEANER (CURRENT) USE OF ASPIRIN 11/24/2019 BRET ARREDONDO MD Ot Z79.899 OTHER CONNIE CLEANER (CURRENT) DRUG THERAPY 11/24/2019 BRET ARREDONDO MD Ot Z85.038 PERSONAL HISTORY OF MALIGNANT NEOPLASM O 11/24/2019 BRET ARREDONDO MD Ot Z86. 73 PRSNL HX OF TIA (TIA), AND CEREB INFRC W 11/24/2019 BRET ARREDONDO MD Ot Z89.441 ACQUIRED ABSENCE OF RIGHT ANKLE 11/24/2019 BRET ARREDONDO MD Ot Z89.442 ACQUIRED ABSENCE OF LEFT ANKLE 11/24/2019 BRET ARREDONDO MD Ot Z92. 21 PERSONAL HISTORY OF ANTINEOPLASTIC CHEMO 11/27/2019 BRET ARREDONDO MD Ot E11. 9 TYPE 2 DIABETES MELLITUS WITHOUT COMPLIC 11/27/2019 BRET ARREDONDO MD Ot E78. 00 PURE HYPERCHOLESTEROLEMIA, UNSPECIFIED 11/27/2019 BRET ARREDONDO MD Ot I10 ESSENTIAL (PRIMARY) HYPERTENSION 11/27/2019 BRET ARREDONDO MD Ot N40. 0 BENIGN PROSTATIC HYPERPLASIA WITHOUT LOW 11/27/2019 BRET ARREDONDO MD Ot R33. 9 RETENTION OF URINE, UNSPECIFIED 11/27/2019 BRET ARREDONDO MD Ot Z79. 4 CONNIE CLEANER (CURRENT) USE OF INSULIN 11/27/2019 BRET ARREDONDO MD Ot Z79. 82 CONNIE CLEANER (CURRENT) USE OF ASPIRIN 11/27/2019 BRET ARREDONDO MD Ot Z79.899 OTHER CARE HOME (CURRENT) DRUG THERAPY 11/27/2019 RBET ARREDONDO MD Ot Z85.038 PERSONAL HISTORY OF MALIGNANT NEOPLASM O 11/27/2019 BRET ARREDONDO MD Ot Z86. 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 21 PERSONAL HISTORY OF ANTINEOPLASTIC CHEMO 12/09/2019 BRET ARREDONDO MD Ot E11. 9 TYPE 2 DIABETES MELLITUS WITHOUT COMPLIC 12/09/2019 BRET ARREDONDO MD Ot E78. 00 PURE HYPERCHOLESTEROLEMIA, UNSPECIFIED 12/09/2019 BRET ARREDONDO MD Ot I10 ESSENTIAL (PRIMARY) HYPERTENSION 12/09/2019 BRET ARREDONDO MD Ot N40. 1 BENIGN PROSTATIC HYPERPLASIA WITH LOWER 12/09/2019 BRET ARREDONDO MD Ot R33. 8 OTHER RETENTION OF URINE 12/09/2019 BRET ARREDONDO MD Ot R33. 9 RETENTION OF URINE, UNSPECIFIED 12/09/2019 BRET ARREDONDO MD, Ot Z79. 4 CARE HOME (CURRENT) USE OF INSULIN 12/09/2019 BRET ARREDONDO MD, Ot Z79. 82 CONNIE CLEANER (CURRENT) USE OF ASPIRIN 12/09/2019 BRET ARREDONDO MD, Ot Z79.899 OTHER CARE HOME (CURRENT) DRUG THERAPY 12/09/2019 BRET ARREDONDO MD, Ot Z85.038 PERSONAL HISTORY OF MALIGNANT NEOPLASM O 12/09/2019 BRET ARREDONDO MD Ot Z86. 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 Code Description Performed By Per formed On [id number] EX CISION OF LEFT LOWER LEG SKIN, EXTERNA 11/07/2017 [id number] EX CISION OF SIGMOID COLON, OPEN APPROACH 08/28/2019 [id number] IN SERTION OF OTHER DEVICE INTO URETER, O 08/28/2019 [id number] RE PAIR LEFT URETER, OPEN APPROACH 08/28/2019 [id number] RE LEASE SMALL INTESTINE, OPEN APPROACH 09/05/[id number] DILLARD OF PERITONEAL CAVITY, OPEN APPR 09/05/2019 [id number] RE SPIRATORY VENTILATION, 24- 96 CONSECUTI 09/05/2019 [...] Bacteria identification in isolate by anaerobe culture [id number] [facility] Gram stain microscopy - 11/08/17 17:30 GRAM STAIN RESULT OBSERVED NRG Bacteria identification in wound by cult ure - 11/08/17 17:30 Bacteria identification in wound by culture SEE RE PORT NRG FREE TEXT EXTERNAL SEE FUNGUS CULTURE REPORT NRG QUANTITY OF GROWTH . [facility] FREE TEXT ENTRY 2 ON THIS ORGAISM. [facility] Bacterial susceptibility panel - 8 [...] ed for a preliminary negative culture report. NR Bacterial susceptibility panel - 8 17:30 Gentamicin [...] identification in isolate by anaerobe culture NG [facility] Gram stain microscopy - 11/22/17 14:38 GRAM STAIN RESULT NO BACTERIA NRG Bacteria identification in wound by cult ure - 11/22/17 14:38 Bacteria identification in wound by culture [id number] NRG FREE TEXT EXTERNAL FROM THIO BROTH ONLY NRG QUANTITY OF GROWTH Isolated NRG FREE TEXT ENTRY 2 SENSITIVITIES REPORTED AT 1240, 18 [facility] Bacterial susceptibility panel - 8 14:38 Gentamicin susceptibility test by minimum inhibitory c oncentration S NRG Erythromycin susceptibility test by minimum inhibitory concentration <= NRG Vancomycin susceptibility test by minimum inhibitory c oncentration 2 NRG Ampicillin susceptibility test by minimum inhibitory c oncentration <= NRG Linezolid susceptibility test by minimum inhibitory co ncentration 2 [facility] Bacterial susceptibility panel - 8 [...] culture - 11/22/17 14:38 Fungus culture NG [facility] Whole blood basic metabolic panel - 11/18 03/06 10:57 Serum or plasma sodium measurement (moles/volume) 134 mmol/L 135-145 Serum or plasma potassium measurement (moles/volume) 4.7 mmol/L 3.6-5.0 Serum or plasma chloride measurement (moles/volume) 98 mmol/L 98-107 Carbon dioxide 29 mmol/L 21-32 [...] 7-18 Serum or plasma creatinine measurement (mass/volume) 0.87 [...] identification in isolate by anaerobe culture NOANA NR Gram stain microscopy - 01/01/18 09:39 GRAM STAIN RESULT NO WBC'S OR BACTERIA OBSERVED NRG Bacteria identification in wound by cult ure - 01/01/18 09:39 Bacteria identification in wound by culture [id number] NR FREE TEXT EXTERNAL SENSITIVITY REPORTED [...] GROWTH Scant Growth NRG FTX;REPORTABLE UNLESS REQUESTED NR Fungus culture [id number] NRG IDENTIFICATION TO FOLLOW NO FURTHER STUDIES [...] 10:30 Bacteria identification in wound by culture [id number] NRG FREE TEXT EXTERNAL SUSCEPTIBILITY REPORTED [...] 10:07 Bacteria identification in wound by culture [id number] NRG FREE TEXT EXTERNAL NO SUSCEPTIBLILTY [...] 7-25 CREATININE 0.73 mg/dL 0.70-1.18 eGFR NON-AFR. FILIPINO 92 mL/min/1.73m2 > OR = 60 eGFR [...] 0.0-0.1 Blood type T Indirect antibody screen [facility] - 08/18/19 14:30 ABO+Rh group AP NRG Blood group antibody screen NEGATIVE NR G Capillary blood glucose measurement by g lucometer (mass/volume) - 08/28/19 10:17 Capillary blood glucose measurement by glucometer (mas s/volume) 109 mg/dL 70-110 Blood type T Indirect antibody screen [facility] - 08/28/19 10:25 WRISTBAND NUMBER [id number] NRG ABO+Rh group AP NRG Blood group [...] or plasma phosphate measurement (m ass/volume) - 01/13/20 05:11 Serum or plasma phosphate measurement (mass/volume) [...] [facility] - 09/05/19 14:22 WRISTBAND NUMBER [id number] NRG ABO+Rh group AP NRG Blood group antibody screen NEGATIVE NR G Bacteria identification in isolate by an aerobe culture - 09/05/19 15:00 Bacteria identification in isolate by anaerobe culture NOANA NRG Gram stain microscopy - 09/05/19 15:00 Gram stain microscopy No bacteria seen NRG Bacteria identification in wound by cult ure - 09/05/19 15:00 Bacteria identification in wound by culture [id number] NRG FREE TEXT EXTERNAL SUSCEPTIBILITY REPORTED [...] GROWTH OF YEAST RPTD BY VCP 08/20 06:45 NRG QUANTITY OF GROWTH . NRG [...] 7-25 CREATININE 0.74 mg/dL 0.70-1.18 eGFR NON-AFR. FILIPINO 92 mL/min/1.73m2 > OR = 60 eGFR [...] RAPID ID NO SUSCEPTIBILITY PERFORMED N RG Complete blood count (CBC) with automate d white blood cell (WBC) differential - 11/21/19 01:13 Blood leukocytes automated count (number/volume) 12.6 10*3/uL 4.3-11.0 Blood erythrocytes automated count (number/volume) 4.28 10*6/uL 4.35-5.85 Venous blood hemoglobin measurement (mass/volume) 10.6 g/dL 13.3-17.7 Blood hematocrit (volume fraction) 34 % 40-54 Automated erythrocyte mean corpuscular volume 79 [ foz_us] 80-99 Automated erythrocyte mean corpuscular h emoglobin (mass per erythrocyte) 25 pg 25-34 Automated erythrocyte mean corpuscular h emoglobin concentration measurement (mass/volume) 31 g/dL 32-36 Automated erythrocyte distribution width ratio 17. 3 % 10.0- 14.5 Automated blood platelet count (count/volume) 504 10*3/uL 130-400 Automated blood platelet mean volume measurement 8.2 [foz_us] 7.4-10.4 Automated blood neutrophils/100 leukocytes 72 % 42-75 Automated blood lymphocytes/100 leukocytes 16 % 12-44 Blood monocytes/100 leukocytes 10 % 0-12 Automated blood eosinophils/100 leukocytes 2 % 0-10 Automated blood basophils/100 leukocytes 0 % 0-10 Blood neutrophils automated count (number/volume) 9.1 10*3 1.8-7.8 Blood lymphocytes automated count (number/volume) 2.0 10*3 1.0-4.0 Blood monocytes automated count (number/volume) 1. 2 10*3 0.0-1.0 Automated eosinophil count 0.2 10*3/uL 0 .0-0.3 Automated blood basophil count (count/volume) 0.0 10*3/uL 0.0-0.1 Whole blood basic metabolic panel - 11/06 01:13 Serum or plasma sodium measurement (moles/volume) 137 mmol/L 135-145 Serum or plasma potassium measurement (moles/volume) 4.8 mmol/L 3.6-5.0 Serum or plasma chloride measurement (moles/volume) 99 mmol/L 98-107 Carbon dioxide 27 mmol/L 21-32 Serum or plasma anion gap determination (moles/volume) 11 mmol/L 5-14 Serum or plasma urea nitrogen measurement (mass/volume ) 14 mg/dL 7-18 Serum or plasma creatinine measurement (mass/volume) 0.93 mg/dL 0.60-1.30 Serum or plasma urea nitrogen/creatinine mass ratio 15 NRG Serum or plasma creatinine measurement w ith calculation of estimated glomerular filtration rate > NRG Serum or plasma glucose measurement (mass/volume) 151 mg/dL 70-105 Serum or plasma calcium measurement (mass/volume) 9.5 mg/dL 8.5-10.1 Complete urinalysis with reflex to cultu re - 11/21/19 01:25 Urine color determination YELLOW NRG Urine clarity determination SL CLOUDY N RG Urine pH measurement by test strip 7.0 5-9 Specific gravity of urine by test strip 1.010 1.016-1.022 Urine protein assay by test strip, semi-quantitative 2+ NEGATIVE Urine glucose detection by automated test strip NE GATIVE NEGATIVE Erythrocytes detection in urine sediment by light micr oscopy 2+ NEGATIVE Urine ketones detection by automated test [...] leukocyte count by microscopy (number/high power field) RARE NRG Bacteria detection in urine sediment by light microsco py TRACE NRG Squamous epithelial cells detection in u rine sediment by light microscopy NONE NRG Crystals detection in urine sediment by light microsco py NONE NRG Casts detection in urine sediment by light microscopy NONE NRG Mucus detection in urine sediment by light microscopy SMALL NRG Complete urinalysis with reflex to culture NO NRG PATIENT ID APPROVAL TIQ DOCUMENTATION - 12/04/19 09:41 COMMENT NRG CONTACT TAWANDA WETZEL NRG TESTS AFFECTED NO TEST NRG Encounters ACCT No. Visit Date/Time Discharge Status Pt. Type Provider Facility Loc./Unit Complaint [id number] 10/16/2019 10:40:00 10/16/2019 23:59: 59 CLS Outpatient KIANNA BARAJAS APRN [facility] [id number] 12/04/2019 09:40:00 Document Registration [id number] 10/16/2019 10:40:00 Document Registration [id number] 07/30/2019 14:40:00 Document Registration [id number] 07/14/2019 10:00:00 Document Registration [id number] 04/03/2019 10:20:00 Document Registration [id number] 03/28/2019 09:00:00 Document Registration [id number] 12/25/2018 10:20:00 Document Registration [id number] 10/30/2017 10:40:00 Document Registration [id number] 12/12/2019 14:39:00 23:59:59 CLS Outpatient DO DOOLEY, SCOTT law [facility] ONC [id number] 11/21/2019 00:59:00 02:09:00 DIS Emergency MARIA ELENA DOOLEY, BRET Eric [facility] ER CATHETER TAKEN OUT IN A .M.,CAN'T URINATE [id number] 11/17/2019 11:45:00 23:59:59 CLS Preadmit SCOTT LEI MD [facility] RAD COLON CA [id number] 11/17/2019 10:54:00 23:59:59 CLS Outpatient SCOTT LEI MD, V ia [facility] 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 [id number] 11/13/2019 08:00:00 23:59:59 CLS Preadmit GALO GRIFFIN DO [facility] SDC COLON CANCER [id number] 11/12/2019 15:19:00 18:06:00 DIS Emergency BRET ARREDONDO MD [facility] ER RENAL FAILURE [id number] 11/11/2019 05:41:00 12:56:00 DIS Outpatient GALO GRIFFIN DO [facility] PREOP COLON CANCER [id number] 11/07/2019 09:57:00 23:59:59 CLS Outpatient HONG DUEKS MD [facility] RAD LT URETERAL LACERATION [id number] 10/28/2019 13:40:00 23:59:59 CLS Preadmit GALO GRIFFIN DO [facility] ENDO HX OF COLON CA [id number] 10/21/2019 05:38:00 23:59:59 CLS Outpatient GALO GRIFFIN DO [facility] PREOP COLONOSCOPY [id number] 10/17/2019 10:52:00 23:59:59 CLS Outpatient HONG DUKES MD [facility] RAD LT URETERAL LACERATION [id number] 08/28/2019 09:45:00 17:10:00 DIS Inpatient GALO GRIFFIN DO [facility] 4TH COLON CANCER [id number] 08/18/2019 14:04:00 12/30/2 019 14:38:00 DIS Outpatient ELIAS VIDALGALO [facility] PREOP COLON CANCER [id number] 08/11/2019 14:44:00 23:59:59 CLS Outpatient GRIFFIN DOGALO [facility] RAD COLON CA [id number] 02/12/2019 09:35:00 23:59:59 CLS Outpatient KIANNA PERES MD [facility] WOUNDCARE [id number] 02/05/2019 12:43:00 23:59:59 CLS Outpatient KIANNA PERES MD [facility] [id number] 01/29/2019 09:38:00 23:59:59 CLS Outpatient KIANNA PERES MD [facility] [id number] 01/22/2019 09:26:00 23:59:59 CLS Outpatient KIANNA PERES MD [facility] [id number] 01/15/2019 09:44:00 23:59:59 CLS Outpatient KIANNA PERES MD [facility] [id number] 2019 08:40:00 23:59:59 CLS Outpatient KIANNA PERES MD [facility] [id number] 03/05/2018 00:09:00 23:59:59 CLS Preadmit MARQUIS COLMENARES APRN [facility] LAB [id number] [id number] 12/25/2017 10:53:00 00:01:00 DIS Outpatient MARQUIS COLMENARES APRN [facility] LAB [id number] 01/22/2018 08:44:00 23:59:59 CLS Outpatient MARQUIS COLMENARES APRN [facility]OUND[facility] [id number] 01/15/2018 08:58:00 23:59:59 CLS Outpatient DEDRA, MARQUIS R INVESTIGATOR NARCOTICS [facility] [id number] 01/08/2018 08:41:00 018 23:59:59 CLS Outpatient DEDRA, MARQUIS R INVESTIGATOR NARCOTICS [facility] [id number] 01/01/2018 08:38:00 018 23:59:59 CLS Outpatient DEDRA, MARQUIS R INVESTIGATOR [employer]ARCOTICS [facility] [id number] 12/25/2017 10:09:00 018 23:59:59 CLS Outpatient DEDRA, MARQUIS R INVESTIGATOR [employer]ARCOTICS [facility] [id number] 12/17/2017 12:40:00 018 23:59:59 CLS Outpatient DEDRA, MARQUIS R INVESTIGATOR [employer]ARCOTICS [facility] [id number] 12/11/2017 09:27:00 018 23:59:59 CLS Outpatient DEDRA, MARQUIS R INVESTIGATOR [employer]ARC[employer] [facility] [id number] 12/04/2017 09:53:00 018 23:59:59 CLS Outpatient DEDRA, MARQUIS R INVESTIGATOR [employer]ARCOTICS [facility] [id number] 11/27/2017 10:01:00 018 23:59:59 CLS Outpatient DEDRA, MARQUIS R INVESTIGATOR [employer]ARCOTICS [facility] [id number] 11/22/2017 14:01:00 018 23:59:59 CLS Outpatient DEDRA, MARQUIS R INVESTIGATOR [employer]ARC[employer] [facility] [id number] 11/13/2017 10:49:00 018 23:59:59 CLS Outpatient DEDRA, MARQUIS R INVESTIGATOR [employer]ARC[employer]ICS [facility] [id number] 11/06/2017 13:00:00 018 16:21:00 DIS Inpatient BERNARD PAYTON DO Via [address] BILAT LE CELLUL ITIS [id number] 11/06/2017 08:54:00 018 23:59:59 CLS Outpatient DEDRA, MARQUIS R INVESTIGATOR NARCOTICS [facility]
--- NOTE | 2019-12-18 23:43 | ED GU-Male ---
General Chief Complaint: - Urinary Stated Complaint: UNABLE TO URINATE Source: patient Exam Limitations: no limitations History of Present Illness Date Seen by Provider: Dec 18, 2019 Time Seen by Provider: 23:08 Initial Comments Presents to ER by private conveyance with chief complaint he has not been able to micturate since having a Moore catheter removed at Dr. Dukes, urology clinic at 1400 today. He was instructed to come to the ER to have a Moore catheter placed if he was unable to micturate for greater than 6 hours however he had difficulty with transportation. He is not having any fever, chills nausea vomiting shortness of breath. He does have some suprapubic discomfort and fullness. He's having normal bowel movements. He is on chemotherapy for history of colon cancer stage III. He was told by the urologist that if he had have another Moore catheter placed and he would need surgery. Allergies and Home Medications Allergies Coded Allergies: No Known Drug Allergies (Unverified , 11/11/19) Home Medications Aspirin 81 Mg Tablet.dr, 81 MG PO DAILY, (Reported) Clopidogrel Bisulfate 75 Mg Tablet, 75 MG PO DAILY, (Reported) Insulin NPH Human Isophane 100 Unit/1 Ml Vial, 33 UNITS SQ DAILY, (Reported) Insulin NPH Human Isophane 100 Unit/1 Ml Vial, 20 UNITS SQ 1930, (Reported) Insulin Regular, Human 100 Unit/1 Ml Vial, 6 UNITS SQ DAILY, (Reported) Insulin Regular, Human 100 Unit/1 Ml Vial, 5 UNITS SQ 1930, (Reported) Lisinopril 20 Mg Tablet, 20 MG PO DAILY, (Reported) Simvastatin 20 Mg Tablet, 20 MG PO HS, (Reported) Patient Home Medication List Home Medication List Reviewed: Yes Review of Systems Review of Systems Constitutional: No chills, No diaphoresis EENTM: No ear discharge, No ear pain Respiratory: No cough, No short of breath Cardiovascular: No chest pain, No palpitations Gastrointestinal: abdominal pain; No nausea Genitourinary: see HPI; denies discharge, denies dysuria Musculoskeletal: No back pain, No joint pain Skin: No pruritus, No rash All Other Systemes Reviewed Negative Unless Noted: Yes Past Zzmfchs-Yammmg-Rowxnv Hx Patient Social History Alcohol Use: Denies Use Recreational Drug Use: No Smoking Status: Never a Smoker 2nd Hand Smoke Exposure: No Recent Foreign Travel: No Contact w/Someone Who Travel: No Recent Hopitalizations: No Immunizations Up To Date Tetanus Booster (TDap): Unknown Date of Pneumonia Vaccine: Jun 08, 2013 Date of Influenza Vaccine: Jun 13, 2019 Seasonal Allergies Seasonal Allergies: No Past Medical History Surgeries: Yes (BILAT BKA, SEVERAL I&D'S, COLECTOMY) Orthopedic Respiratory: No Cardiac: Yes High Cholesterol, Hypertension Neurological: Yes TIA Genitourinary: Yes Benign Prostatic Hyperpl Gastrointestinal: Yes (COLON CANCER) 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 No Pertinent Family Hx Physical Exam Vital Signs Vital Signs - First Documented 12/18/19 23:04 Temp 37.1 Pulse 99 Resp 18 B/P (MAP) 134/71 (92) Pulse Ox 85 Capillary Refill : Height, Weight, BMI Height: 6'2.00" Weight: 201lbs. 5.0oz. 91.065652js; 25.00 BMI Method:Stated General Appearance: WD/WN, no apparent distress HEENT: PERRL/EOMI, pharynx normal Cardiovascular: normal peripheral pulses, regular rate, rhythm Respiratory: no respiratory distress, no accessory muscle use Gastrointestinal: normal bowel sounds, soft, tenderness (suprapubic fullness palpated over the bladder) Back: normal inspection, no CVA tenderness Extremities: normal range of motion, normal capillary refill Neurologic/Psychiatric: alert, normal mood/affect, oriented x 3 Skin: normal color, warm/dry Procedures/Interventions Date of ETT Placement: Sep 05, 2019 Progress/Results/Core Measures Suspected Sepsis SIRS Temperature: Pulse: Respiratory Rate: Blood Pressure / Mean: Results/Orders Lab Results Laboratory Tests Test 12/18/19 23:55 Range/Units Urine Color YELLOW Urine Clarity CLEAR Urine pH 6.5 5-9 Urine Specific [place] 1.010 L 1.016-1.022 Urine Protein NEGATIVE NEGATIVE Urine Glucose (UA) 1+ H NEGATIVE Urine Ketones NEGATIVE NEGATIVE Urine Nitrite NEGATIVE NEGATIVE Urine Bilirubin NEGATIVE NEGATIVE Urine Urobilinogen 0.2 < = 1.0 MG/DL Urine Leukocyte Esterase NEGATIVE NEGATIVE Urine RBC (Auto) NEGATIVE NEGATIVE Urine RBC NONE /HPF Urine WBC NONE /HPF Urine Squamous Epithelial Cells RARE /HPF Urine Crystals NONE /LPF Urine Bacteria NEGATIVE /HPF Urine Casts NONE /LPF Urine Mucus SMALL H /LPF Urine Culture Indicated NO My Orders Orders - BRET ARREDONDO Catheter(Urinary) Insert & Ass 03,15 (12/18/19 23:19) Ua Culture If Indicated (12/18/19 23:19) Bladder Scan (12/18/19 23:19) Vital Signs/I&O 12/18/19 23:04 Temp 37.1 Pulse 99 Resp 18 B/P (MAP) 134/71 (92) Pulse Ox 85 Capillary Refill : Progress Note : Time: 23:41 Progress Note Bladder scan and then replace a Moore catheter if indicated. Urinalysis. Greater than 830 mL per bladder scan. 16F placed normal moore. Departure Impression Primary Impression: Urinary retention due to benign prostatic hyperplasia Disposition: 01 HOME, SELF-CARE Condition: Improved Departure-Patient Inst. Decision time for Depature: 00:20 Referrals: [facility] (PCP) Primary Care Physician KIANNA BARAJAS (Family) Primary Care Physician HONG DUKES MD Patient Instructions: Urinary Retention (DC), How to Care for Your Moore Catheter, Male Add. Discharge Instructions: Call Dr. Dukes, urology in the morning and request follow-up appointment. All discharge instructions reviewed with patient and/or family. Voiced understanding. BRET ARREDONDO Dec 18, 2019 23:43
[2019-12-19 00:04] LABS: BILIRUBIN,URINE NEGATIVE (NEGATIVE); CLARITY,URINE CLEAR; COLOR,URINE YELLOW; GLUCOSE, URINE (UA) 1+ (NEGATIVE); KETONES,URINE NEGATIVE (NEGATIVE); LEUKOCYTE ESTERASE ,URINE NEGATIVE (NEGATIVE); NITRITE,URINE NEGATIVE (NEGATIVE); PH,URINE 6.5 (5-9); PROTEIN,URINE NEGATIVE (NEGATIVE)
[2019-12-19 00:17] LABS: BACTERIA,URINE NEGATIVE /HPF; SQUAMOUS EPITHELIAL CELL,UR RARE /HPF
[2019-12-19 00:29] VITALS: BP 100/79
== END 2019-12-19 00:30 | disposition home or self-care (01) ==
LOC: EDUNIT# 22:42 → ER 22:43
DX: N40.1 Benign prostatic hyperplasia with lower urinary tract symptoms (principal); I10 Essential (primary) hypertension; E78.00 Pure hypercholesterolemia, unspecified; E11.9 Type 2 diabetes mellitus without complications; Z86.73 Personal history of transient ischemic attack (TIA), and cerebral infarction without residual deficits; Z79.82 Long term (current) use of aspirin; Z79.02 Long term (current) use of antithrombotics/antiplatelets; Z79.4 Long term (current) use of insulin; Z85.038 Personal history of other malignant neoplasm of large intestine
CPT/HCPCS: 51702; 81000

== ENCOUNTER 2019-12-29 12:33 | Outpatient (CLI) | payer MEDICARE, OTHER ==
[~2019-12-29] VITALS: Ht 187 cm; Wt 96.4 kg
== END 2019-12-29 16:18 ==
LOC: PREOP 12:33
PROVIDERS: ATTEND Surgery
DX: Z01.818 Encounter for other preprocedural examination (principal); C18.9 Malignant neoplasm of colon, unspecified; N40.0 Benign prostatic hyperplasia without lower urinary tract symptoms
CPT/HCPCS: 87081; 87635

== ENCOUNTER 2020-01-02 10:45 | Inpatient (IN) | payer MEDICARE, OTHER ==
[2020-01-02] VITALS (9 sets, daily range): BP systolic 116–132; BP diastolic 60–75
[~2020-01-02] VITALS: Ht 188 cm; Wt 8.9 kg
[2020-01-02] MEDS: LACTATED RINGERS 1,000 ML IV PRN ×2 (11:10→13:10)
[2020-01-02] MEDS ORDERED: 0.9% SODIUM CHLORIDE PF INJ 20 ML VIAL ONE (11:21)
[2020-01-02] MEDS ORDERED: HEParin (CENTRAL IV FLUSH) 500 UNIT/5 ML SYR ONE (11:21)
[2020-01-02] MEDS ORDERED: BUP/EPI 0.5% 1:200,000 (SENSORCAINE) 30 ML VIAL ONE (11:21)
[2020-01-02] MEDS ORDERED: cefTRIAXone 1,000 MG IV (ROCEPHIN) VIAL ONE (11:39)
[2020-01-02] MEDS ORDERED: WATER (STERILE) FOR INJECTION 10 ML ONE (11:39)
[2020-01-02] MEDS ORDERED: ONDANSETRON 4 MG/2 ML (SDV) Z0FRAN ONE (11:54)
[2020-01-02] MEDS ORDERED: LIDOCAINE PF 2% 5 ML (XYLOCAINE) VIAL ONE (11:54)
[2020-01-02] MEDS ORDERED: SEVOFLURANE (ULTANE) 15 ML INHAL SOLN ONE (11:54)
[2020-01-02] MEDS ORDERED: proPOfol 200 MG/20 ML (DIPRIVAN) VIAL IV ONE (11:54)
[2020-01-02] MEDS ORDERED: fentaNYL INJECTION 100 MCG/2 ML AMP ONE (11:55)
--- OUTSIDE RECORDS SUMMARY | 2020-01-02 11:56 | XMS REPORT | Continuity of Care Document ---
Author Organization Unknown Address Unknown Phone Unavailable Allergies Active Description Code Type Severity Reaction Onset Reported/Identified Relationship to Patient Clinical Status Yes No Known Drug Allergies [id number] Drug Allergy Unknown N/A 11/11/2019 Medications There is no data. Problems Date Dx Coded Attending Type Code Diagnosis Diagnosed By 11/07/2017 MARQUIS COLMENARES APRN Ot L03.116 CELLULITIS OF LEFT LOWER LIMB 11/07/2017 MARQUIS COLMENARES APRN Ot Z89.512 ACQUIRED ABSENCE OF LEFT LEG BELOW KNEE 11/09/2017 [facility] MARYVALE BERNARD VIDAL Ot E11.9 TYPE 2 DIABETES MELLITUS WITHOUT COMPLIC [facility] Ot E78.00 PURE HYPERCHOLESTEROLEMIA, UNSPECIFIED 11/09/2017 [facility] MARYVALE BERNARD VIDAL Ot I10 ESSENTIAL (PRIMARY) HYPERTENSION 11/09/2017 [facility] Ot L03.115 CELLULITIS OF RIGHT LOWER LIMB [facility]/09/[facility] Ot L03.116 CELLULITIS OF LEFT LOWER LIMB 11/09/2017 [facility] MARYVALE BERNARD VIDAL Ot N40.0 BENIGN PROSTATIC HYPERPLASIA WITHOUT LOW 11/09/2017 [facility] Ot T87.43 INFECTION OF AMPUTATION STUMP, RIGHT LOW 11/09/2017 [facility] MARYVALE BERNARD VIDAL Ot T87.44 INFECTION OF AMPUTATION STUMP, LEFT LOWE 11/09/2017 [facility] Ot 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 11/09/2017 [facility] DO Ot 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 RIGHT LEG BELOW KNEE 11/09/2017 [facility] Urbina DO Ot Z89.512 ACQUIRED ABSENCE OF LEFT LEG BELOW KNEE 11/14/2017 MARQUIS COLMENARES APRN Ot B36.9 SUPERFICIAL MYCOSIS, UNSPECIFIED 11/14/2017 DEDRA, MARQUIS R AOC OPERATIONS INTELLIGENCE CHIEF Ot L03.116 CELLULITIS OF LEFT LOWER LIMB 11/14/2017 DEDRA MARQUIS R AOC OPERATIONS INTELLIGENCE CHIEF Ot L97.122 NON-PRESSURE CHRONIC ULCER OF LEFT THIGH 11/14/2017 MARQUIS COLMENARES R AOC OPERATIONS INTELLIGENCE CHIEF Ot Z89.512 ACQUIRED ABSENCE OF LEFT LEG BELOW KNEE 11/22/2017 DEDRA MARQUIS R AOC OPERATIONS INTELLIGENCE CHIEF Ot L03.116 CELLULITIS OF LEFT LOWER LIMB 11/22/2017 MARQUIS COLMENARES R AOC OPERATIONS INTELLIGENCE CHIEF Ot Z89.512 ACQUIRED ABSENCE OF LEFT LEG BELOW KNEE 11/26/2017 MARQUIS COLMENARES R AOC OPERATIONS INTELLIGENCE CHIEF Ot B36.9 SUPERFICIAL MYCOSIS, UNSPECIFIED 11/26/2017 DEDRA MARQUIS R AOC OPERATIONS INTELLIGENCE CHIEF Ot L03.116 CELLULITIS OF LEFT LOWER LIMB 11/26/2017 DEDRA MARQUIS R AOC OPERATIONS INTELLIGENCE CHIEF Ot L97.122 NON-PRESSURE CHRONIC ULCER OF LEFT THIGH 11/26/2017 DEDRA MARQUIS R AOC OPERATIONS INTELLIGENCE CHIEF Ot Z89.512 ACQUIRED ABSENCE OF LEFT LEG BELOW KNEE 11/26/2017 MARQUIS COLMENARES R AOC OPERATIONS INTELLIGENCE CHIEF Ot B36.9 SUPERFICIAL MYCOSIS, UNSPECIFIED 11/26/2017 MARQUIS COLMENARES R AOC OPERATIONS INTELLIGENCE CHIEF Ot L03.116 CELLULITIS OF LEFT LOWER LIMB 11/26/2017 DEDRA MARQUIS R AOC OPERATIONS INTELLIGENCE CHIEF Ot L97.122 NON-PRESSURE CHRONIC ULCER OF LEFT THIGH 11/26/2017 MARQUIS COLMENARES R AOC OPERATIONS INTELLIGENCE CHIEF Ot Z89.512 ACQUIRED ABSENCE OF LEFT LEG BELOW KNEE 11/28/2017 MARQUIS COLMENARES R AOC OPERATIONS INTELLIGENCE CHIEF Ot B36.9 SUPERFICIAL MYCOSIS, UNSPECIFIED 11/28/2017 DEDRA MARQUIS R AOC OPERATIONS INTELLIGENCE CHIEF Ot L03.116 CELLULITIS OF LEFT LOWER LIMB 11/28/2017 DEDRA MARQUIS R AOC OPERATIONS INTELLIGENCE CHIEF Ot L97.122 NON-PRESSURE CHRONIC ULCER OF LEFT THIGH 11/28/2017 DEDRA MARQUIS R AOC OPERATIONS INTELLIGENCE CHIEF Ot Z89.512 ACQUIRED ABSENCE OF LEFT LEG BELOW KNEE 12/04/2017 DEDRA MARQUIS R AOC OPERATIONS INTELLIGENCE CHIEF Ot L03.116 CELLULITIS OF LEFT LOWER LIMB 12/04/2017 MARQUIS COLMENARES R AOC OPERATIONS INTELLIGENCE CHIEF Ot Z89.512 ACQUIRED ABSENCE OF LEFT LEG BELOW KNEE 12/05/2017 MARQUIS COLMENARES R AOC OPERATIONS INTELLIGENCE CHIEF Ot B36.9 SUPERFICIAL MYCOSIS, UNSPECIFIED 12/05/2017 MARQUIS COLMENARES R AOC OPERATIONS INTELLIGENCE CHIEF Ot L03.116 CELLULITIS OF LEFT LOWER LIMB 12/05/2017 DEDRA, MARQUIS R AOC OPERATIONS INTELLIGENCE CHIEF Ot L97.122 NON-PRESSURE CHRONIC ULCER OF LEFT THIGH 12/05/2017 DEDRA MARQUIS R AOC OPERATIONS INTELLIGENCE CHIEF Ot Z89.512 ACQUIRED ABSENCE OF LEFT LEG BELOW KNEE 12/12/2017 MARQUIS COLMENARES R AOC OPERATIONS INTELLIGENCE CHIEF Ot B36.9 SUPERFICIAL MYCOSIS, UNSPECIFIED 12/12/2017 DEDRA MARQUIS R AOC OPERATIONS INTELLIGENCE CHIEF Ot L03.116 CELLULITIS OF LEFT LOWER LIMB 12/12/2017 DEDRA MARQUIS R AOC OPERATIONS INTELLIGENCE CHIEF Ot L97.122 NON-PRESSURE CHRONIC ULCER OF LEFT THIGH 12/12/2017 MARQUIS COLMENARES R AOC OPERATIONS INTELLIGENCE CHIEF Ot Z89.512 ACQUIRED ABSENCE OF LEFT LEG BELOW KNEE 12/18/2017 MARQUIS COLMENARES R AOC OPERATIONS INTELLIGENCE CHIEF Ot B36.9 SUPERFICIAL MYCOSIS, UNSPECIFIED 12/18/2017 DEDRAMARQUIS R AOC OPERATIONS INTELLIGENCE CHIEF Ot L03.116 CELLULITIS OF LEFT LOWER LIMB 12/18/2017 DEDRA MARQUIS R AOC OPERATIONS INTELLIGENCE CHIEF Ot L97.121 NON-PRS CHRONIC ULCER OF LEFT THIGH LIMI 12/18/2017 DEDRA MARQUIS R AOC OPERATIONS INTELLIGENCE CHIEF Ot L97.122 NON-PRESSURE CHRONIC ULCER OF LEFT THIGH 12/18/2017 MARQUIS COLMENARES R AOC OPERATIONS INTELLIGENCE CHIEF Ot Z89.512 ACQUIRED ABSENCE OF LEFT LEG BELOW KNEE 12/18/2017 MARQUIS COLMENARES R AOC OPERATIONS INTELLIGENCE CHIEF Ot B36.9 SUPERFICIAL MYCOSIS, UNSPECIFIED 12/18/2017 MARQUIS COLMENARES R AOC OPERATIONS INTELLIGENCE CHIEF Ot L03.116 CELLULITIS OF LEFT LOWER LIMB 12/18/2017 DEDRA MARQUIS R AOC OPERATIONS INTELLIGENCE CHIEF Ot L97.122 NON-PRESSURE CHRONIC ULCER OF LEFT THIGH 12/18/2017 MARQUIS COLMENARES R AOC OPERATIONS INTELLIGENCE CHIEF Ot Z89.512 ACQUIRED ABSENCE OF LEFT LEG BELOW KNEE 12/20/2017 MARQUIS COLMENARES R AOC OPERATIONS INTELLIGENCE CHIEF Ot B36.9 SUPERFICIAL MYCOSIS, UNSPECIFIED 12/20/2017 DEDRA MARQUIS R AOC OPERATIONS INTELLIGENCE CHIEF Ot L03.116 CELLULITIS OF LEFT LOWER LIMB 12/20/2017 DEDRA MARQUIS R AOC OPERATIONS INTELLIGENCE CHIEF Ot L97.122 NON-PRESSURE CHRONIC ULCER OF LEFT THIGH 12/20/2017 MARQUIS COLMENARES R AOC OPERATIONS INTELLIGENCE CHIEF Ot Z89.512 ACQUIRED ABSENCE OF LEFT LEG BELOW KNEE 12/21/2017 MARQUIS COLMENARES R AOC OPERATIONS INTELLIGENCE CHIEF Ot B36.9 SUPERFICIAL MYCOSIS, UNSPECIFIED 12/21/2017 MARQUIS COLMENARES R AOC OPERATIONS INTELLIGENCE CHIEF Ot L03.116 CELLULITIS OF LEFT LOWER LIMB 12/21/2017 DEDRA, MARQUIS R AOC OPERATIONS INTELLIGENCE CHIEF Ot L97.121 NON-PRS CHRONIC ULCER OF LEFT THIGH LIMI 12/21/2017 DEDRA MARQUIS R AOC OPERATIONS INTELLIGENCE CHIEF Ot L97.122 NON-PRESSURE CHRONIC ULCER OF LEFT THIGH 12/21/2017 MARQUIS COLMENARES AOC OPERATIONS INTELLIGENCE CHIEF Ot Z89.512 ACQUIRED ABSENCE OF LEFT LEG BELOW KNEE 12/24/2017 MARQUIS COLMENARES AOC OPERATIONS INTELLIGENCE CHIEF Ot B36.9 SUPERFICIAL MYCOSIS, UNSPECIFIED 12/24/2017 MARQUIS COLMENARES R AOC OPERATIONS INTELLIGENCE CHIEF Ot L03.116 CELLULITIS OF LEFT LOWER LIMB 12/24/2017 DEDRA MARQUIS R AOC OPERATIONS INTELLIGENCE CHIEF Ot L97.122 NON-PRESSURE CHRONIC ULCER OF LEFT THIGH 12/24/2017 DEDRA MARQUIS R AOC OPERATIONS INTELLIGENCE CHIEF Ot Z89.512 ACQUIRED ABSENCE OF LEFT LEG BELOW KNEE 12/25/2017 MARQUIS COLMENARES R AOC OPERATIONS INTELLIGENCE CHIEF Ot B36.9 SUPERFICIAL MYCOSIS, UNSPECIFIED 12/25/2017 DEDRA MARQUIS R AOC OPERATIONS INTELLIGENCE CHIEF Ot L03.116 CELLULITIS OF LEFT LOWER LIMB 12/25/2017 MARQUIS COLMENARES AOC OPERATIONS INTELLIGENCE CHIEF Ot L97.122 NON-PRESSURE CHRONIC ULCER OF LEFT THIGH 12/25/2017 MARQUIS COLMENARES R AOC OPERATIONS INTELLIGENCE CHIEF Ot Z89.512 ACQUIRED ABSENCE OF LEFT LEG BELOW KNEE 12/27/2017 MARQUIS COLMENARES R AOC OPERATIONS INTELLIGENCE CHIEF Ot B36.9 SUPERFICIAL MYCOSIS, UNSPECIFIED 12/27/2017 MARQUIS COLMENARES R AOC OPERATIONS INTELLIGENCE CHIEF Ot L03.116 CELLULITIS OF LEFT LOWER LIMB 12/27/2017 DEDRA MARQUIS R AOC OPERATIONS INTELLIGENCE CHIEF Ot L97.121 NON-PRS CHRONIC ULCER OF LEFT THIGH LIMI 12/27/2017 MARQUIS COLMENARES AOC OPERATIONS INTELLIGENCE CHIEF Ot L97.122 NON-PRESSURE CHRONIC ULCER OF LEFT THIGH 12/27/2017 MARQUIS COLMENARES R AOC OPERATIONS INTELLIGENCE CHIEF Ot Z89.512 ACQUIRED ABSENCE OF LEFT LEG BELOW KNEE 01/02/2018 MARQUIS COLMENARES R AOC OPERATIONS INTELLIGENCE CHIEF Ot B36.9 SUPERFICIAL MYCOSIS, UNSPECIFIED 01/02/2018 MARQUIS COLMENARES R AOC OPERATIONS INTELLIGENCE CHIEF Ot L03.116 CELLULITIS OF LEFT LOWER LIMB 01/02/2018 MARQUIS COLMENARES R AOC OPERATIONS INTELLIGENCE CHIEF Ot L97.122 NON-PRESSURE CHRONIC ULCER OF LEFT THIGH 01/02/2018 MARQUIS COLMENARES R AOC OPERATIONS INTELLIGENCE CHIEF Ot Z89.512 ACQUIRED ABSENCE OF LEFT LEG BELOW KNEE 01/03/2018 MARQUIS COLMENARES R AOC OPERATIONS INTELLIGENCE CHIEF Ot B36.9 SUPERFICIAL MYCOSIS, UNSPECIFIED 01/03/2018 MARQUIS COLMENARES R AOC OPERATIONS INTELLIGENCE CHIEF Ot L03.116 CELLULITIS OF LEFT LOWER LIMB 01/03/2018 MARQUIS COLMENARES AOC OPERATIONS INTELLIGENCE CHIEF Ot L97.121 NON-PRS CHRONIC ULCER OF LEFT THIGH LIMI 01/03/2018 MARQUIS COLMENARES R AOC OPERATIONS INTELLIGENCE CHIEF Ot L97.122 NON-PRESSURE CHRONIC ULCER OF LEFT THIGH 01/03/2018 MARQUIS COLMENARES R AOC OPERATIONS INTELLIGENCE CHIEF Ot Z89.512 ACQUIRED ABSENCE OF LEFT LEG BELOW KNEE 01/07/2018 MARQUIS COLMENARES R AOC OPERATIONS INTELLIGENCE CHIEF Ot B36.9 SUPERFICIAL MYCOSIS, UNSPECIFIED 01/07/2018 DEDRA MARQUIS R AOC OPERATIONS INTELLIGENCE CHIEF Ot L03.116 CELLULITIS OF LEFT LOWER LIMB 01/07/2018 DEDRA MARQUIS R AOC OPERATIONS INTELLIGENCE CHIEF Ot L97.122 NON-PRESSURE CHRONIC ULCER OF LEFT THIGH 01/07/2018 MARQUIS COLMENARES R AOC OPERATIONS INTELLIGENCE CHIEF Ot Z89.512 ACQUIRED ABSENCE OF LEFT LEG BELOW KNEE 01/07/2018 MARQUIS COLMENARES AOC OPERATIONS INTELLIGENCE CHIEF Ot B36.9 SUPERFICIAL MYCOSIS, UNSPECIFIED 01/07/2018 MARQUIS COLMENARES R AOC OPERATIONS INTELLIGENCE CHIEF Ot L03.116 CELLULITIS OF LEFT LOWER LIMB 01/07/2018 DEDRA MARQUIS R AOC OPERATIONS INTELLIGENCE CHIEF Ot L97.122 NON-PRESSURE CHRONIC ULCER OF LEFT THIGH 01/07/2018 MARQUIS COLMENARES R AOC OPERATIONS INTELLIGENCE CHIEF Ot Z89.512 ACQUIRED ABSENCE OF LEFT LEG BELOW KNEE 01/07/2018 MARQUIS COLMENARES R AOC OPERATIONS INTELLIGENCE CHIEF Ot B36.9 SUPERFICIAL MYCOSIS, UNSPECIFIED 01/07/2018 MARQUIS COLMENARES R AOC OPERATIONS INTELLIGENCE CHIEF Ot L03.116 CELLULITIS OF LEFT LOWER LIMB 01/07/2018 MARQUIS COLMENARES AOC OPERATIONS INTELLIGENCE CHIEF Ot L97.122 NON-PRESSURE CHRONIC ULCER OF LEFT THIGH 01/07/2018 MARQUIS COLMENARES R AOC OPERATIONS INTELLIGENCE CHIEF Ot Z89.512 ACQUIRED ABSENCE OF LEFT LEG BELOW KNEE 01/07/2018 MARQIUS COLMENARES R AOC OPERATIONS INTELLIGENCE CHIEF Ot B36.9 SUPERFICIAL MYCOSIS, UNSPECIFIED 01/07/2018 MARQUIS COLMENARES R AOC OPERATIONS INTELLIGENCE CHIEF Ot L03.116 CELLULITIS OF LEFT LOWER LIMB 01/07/2018 MARQUIS COLMENARES R AOC OPERATIONS INTELLIGENCE CHIEF Ot L97.122 NON-PRESSURE CHRONIC ULCER OF LEFT THIGH 01/07/2018 MARQUIS COLMENARES R AOC OPERATIONS INTELLIGENCE CHIEF Ot Z89.512 ACQUIRED ABSENCE OF LEFT LEG BELOW KNEE 01/08/2018 MARQUIS COLMENARES R AOC OPERATIONS INTELLIGENCE CHIEF Ot B36.9 SUPERFICIAL MYCOSIS, UNSPECIFIED 01/08/2018 MARQUIS COLMENARES AOC OPERATIONS INTELLIGENCE CHIEF Ot L03.116 CELLULITIS OF LEFT LOWER LIMB 01/08/2018 MARQUIS COLMENARES AOC OPERATIONS INTELLIGENCE CHIEF Ot L97.121 NON-PRS CHRONIC ULCER OF LEFT THIGH LIMI 01/08/2018 MARQUIS COLMENARES AOC OPERATIONS INTELLIGENCE CHIEF Ot L97.122 NON-PRESSURE CHRONIC ULCER OF LEFT THIGH 01/08/2018 MARQUIS COLMENARES AOC OPERATIONS INTELLIGENCE CHIEF Ot Z89.512 ACQUIRED ABSENCE OF LEFT LEG BELOW KNEE 01/08/2018 MARQUIS COLMENARES AOC OPERATIONS INTELLIGENCE CHIEF Ot Z51.81 ENCOUNTER FOR THERAPEUTIC DRUG LEVEL MON 01/08/2018 MARQUIS COLMENARES AOC OPERATIONS INTELLIGENCE CHIEF Ot Z79.899 OTHER [facility] (CURRENT) DRUG THERAPY 01/09/2018 MARQUIS COLMENARES AOC OPERATIONS INTELLIGENCE CHIEF Ot B36.9 SUPERFICIAL MYCOSIS, UNSPECIFIED 01/09/2018 MARQUIS COLMENARES AOC OPERATIONS INTELLIGENCE CHIEF Ot L03.116 CELLULITIS OF LEFT LOWER LIMB 01/09/2018 MARQUIS COLMENARES AOC OPERATIONS INTELLIGENCE CHIEF Ot L97.121 NON-PRS CHRONIC ULCER OF LEFT THIGH LIMI 01/09/2018 MARQUIS COLMENARES R AOC OPERATIONS INTELLIGENCE CHIEF Ot Z89.512 ACQUIRED ABSENCE OF LEFT LEG BELOW KNEE 01/14/2018 MARQUIS COLMENARES R AOC OPERATIONS INTELLIGENCE CHIEF Ot B36.9 SUPERFICIAL MYCOSIS, UNSPECIFIED 01/14/2018 MARQUIS COLMENARES R AOC OPERATIONS INTELLIGENCE CHIEF Ot L03.116 CELLULITIS OF LEFT LOWER LIMB 01/14/2018 MARQUIS COLMENARES AOC OPERATIONS INTELLIGENCE CHIEF Ot L97.121 NON-PRS CHRONIC ULCER OF LEFT THIGH LIMI 01/14/2018 MARQUIS COLMENARES AOC OPERATIONS INTELLIGENCE CHIEF Ot Z89.512 ACQUIRED ABSENCE OF LEFT LEG BELOW KNEE 01/16/2018 MARQUIS COLMENARES AOC OPERATIONS INTELLIGENCE CHIEF Ot B36.9 SUPERFICIAL MYCOSIS, UNSPECIFIED 01/16/2018 MARQUIS COLMENARES R AOC OPERATIONS INTELLIGENCE CHIEF Ot L03.116 CELLULITIS OF LEFT LOWER LIMB 01/16/2018 MARQUIS COLMENARES R AOC OPERATIONS INTELLIGENCE CHIEF Ot L97.121 NON-PRS CHRONIC ULCER OF LEFT THIGH LIMI 01/16/2018 MARQUIS COLMENARES R AOC OPERATIONS INTELLIGENCE CHIEF Ot Z89.512 ACQUIRED ABSENCE OF LEFT LEG BELOW KNEE 01/16/2018 MARQUIS COLMENARES R AOC OPERATIONS INTELLIGENCE CHIEF Ot B36.9 SUPERFICIAL MYCOSIS, UNSPECIFIED 01/16/2018 MARQUIS COLMENARES R AOC OPERATIONS INTELLIGENCE CHIEF Ot L03.116 CELLULITIS OF LEFT LOWER LIMB 01/16/2018 MARQUIS COLMENARES AOC OPERATIONS INTELLIGENCE CHIEF Ot L97.121 NON-PRS CHRONIC ULCER OF LEFT THIGH LIMI 01/16/2018 DEDRA MARQUIS R AOC OPERATIONS INTELLIGENCE CHIEF Ot L97.122 NON-PRESSURE CHRONIC ULCER OF LEFT THIGH 01/16/2018 DEDRA MARQUIS R AOC OPERATIONS INTELLIGENCE CHIEF Ot Z89.512 ACQUIRED ABSENCE OF LEFT LEG BELOW KNEE 01/22/2018 DEDRA MARQUIS R AOC OPERATIONS INTELLIGENCE CHIEF Ot B36.9 SUPERFICIAL MYCOSIS, UNSPECIFIED 01/22/2018 DEDRA MARQUIS R AOC OPERATIONS INTELLIGENCE CHIEF Ot L03.116 CELLULITIS OF LEFT LOWER LIMB 01/22/2018 DEDRA MARQUIS R AOC OPERATIONS INTELLIGENCE CHIEF Ot L97.121 NON-PRS CHRONIC ULCER OF LEFT THIGH LIMI 01/22/2018 DEDRA MARQUIS R AOC OPERATIONS INTELLIGENCE CHIEF Ot L97.122 NON-PRESSURE CHRONIC ULCER OF LEFT THIGH 01/22/2018 DEDRA MARQUIS R AOC OPERATIONS INTELLIGENCE CHIEF Ot Z89.512 ACQUIRED ABSENCE OF LEFT LEG BELOW KNEE 01/23/2018 DEDRA MARQUIS R AOC OPERATIONS INTELLIGENCE CHIEF Ot B36.9 SUPERFICIAL MYCOSIS, UNSPECIFIED 01/23/2018 DEDRA MARQUIS R AOC OPERATIONS INTELLIGENCE CHIEF Ot L03.116 CELLULITIS OF LEFT LOWER LIMB 01/23/2018 MARQUIS COLMENARES R AOC OPERATIONS INTELLIGENCE CHIEF Ot L97.122 NON-PRESSURE CHRONIC ULCER OF LEFT THIGH 01/23/2018 DEDRA MARQUIS R AOC OPERATIONS INTELLIGENCE CHIEF Ot Z89.512 ACQUIRED ABSENCE OF LEFT LEG BELOW KNEE 01/23/2018 MARQUIS COLMENARES R AOC OPERATIONS INTELLIGENCE CHIEF Ot B36.9 SUPERFICIAL MYCOSIS, UNSPECIFIED 01/23/2018 DEDRA MARQUIS R AOC OPERATIONS INTELLIGENCE CHIEF Ot L03.116 CELLULITIS OF LEFT LOWER LIMB 01/23/2018 DEDRA MARQUIS R AOC OPERATIONS INTELLIGENCE CHIEF Ot L97.122 NON-PRESSURE CHRONIC ULCER OF LEFT THIGH 01/23/2018 DEDRA MARQUIS R AOC OPERATIONS INTELLIGENCE CHIEF Ot Z89.512 ACQUIRED ABSENCE OF LEFT LEG BELOW KNEE 01/28/2018 DEDRA MARQUIS R AOC OPERATIONS INTELLIGENCE CHIEF Ot B36.9 SUPERFICIAL MYCOSIS, UNSPECIFIED 01/28/2018 DEDRA MARQUIS R AOC OPERATIONS INTELLIGENCE CHIEF Ot L03.116 CELLULITIS OF LEFT LOWER LIMB 01/28/2018 DEDRA MARQUIS R AOC OPERATIONS INTELLIGENCE CHIEF Ot L97.122 NON-PRESSURE CHRONIC ULCER OF LEFT THIGH 01/28/2018 DEDRA MARQUIS R AOC OPERATIONS INTELLIGENCE CHIEF Ot Z89.512 ACQUIRED ABSENCE OF LEFT LEG BELOW KNEE 01/30/2018 DEDRA MARQUIS R AOC OPERATIONS INTELLIGENCE CHIEF Ot B36.9 SUPERFICIAL MYCOSIS, UNSPECIFIED 01/30/2018 DEDRA MARQUIS R AOC OPERATIONS INTELLIGENCE CHIEF Ot L03.116 CELLULITIS OF LEFT LOWER LIMB 01/30/2018 DEDRAPASCUALN R AOC OPERATIONS INTELLIGENCE CHIEF Ot L97.121 NON-PRS CHRONIC ULCER OF LEFT THIGH LIMI 01/30/2018 DEDRA MARQUIS R AOC OPERATIONS INTELLIGENCE CHIEF Ot Z89.512 ACQUIRED ABSENCE OF LEFT LEG BELOW KNEE 02/01/2018 MARQUIS COLMENARES R AOC OPERATIONS INTELLIGENCE CHIEF Ot B36.9 SUPERFICIAL MYCOSIS, UNSPECIFIED 02/01/2018 MARQUIS COLMENARES R AOC OPERATIONS INTELLIGENCE CHIEF Ot L03.116 CELLULITIS OF LEFT LOWER LIMB 02/01/2018 MARQUIS COLMENARES R AOC OPERATIONS INTELLIGENCE CHIEF Ot L97.121 NON-PRS CHRONIC ULCER OF LEFT THIGH LIMI 02/01/2018 DEDRA MARQUIS R AOC OPERATIONS INTELLIGENCE CHIEF Ot L97.122 NON-PRESSURE CHRONIC ULCER OF LEFT THIGH 02/01/2018 MARQUIS COLMENARES R AOC OPERATIONS INTELLIGENCE CHIEF Ot Z89.512 ACQUIRED ABSENCE OF LEFT LEG BELOW KNEE 02/04/2018 MARQUIS COLMENARES R AOC OPERATIONS INTELLIGENCE CHIEF Ot B36.9 SUPERFICIAL MYCOSIS, UNSPECIFIED 02/04/2018 MARQUIS COLMENARES R AOC OPERATIONS INTELLIGENCE CHIEF Ot L03.116 CELLULITIS OF LEFT LOWER LIMB 02/04/2018 MARQUIS COLMENARES R AOC OPERATIONS INTELLIGENCE CHIEF Ot L97.121 NON-PRS CHRONIC ULCER OF LEFT THIGH LIMI 02/04/2018 DEDRA MARQUIS R AOC OPERATIONS INTELLIGENCE CHIEF Ot L97.122 NON-PRESSURE CHRONIC ULCER OF LEFT THIGH 02/04/2018 MARQUIS COLMENARES R AOC OPERATIONS INTELLIGENCE CHIEF Ot Z89.512 ACQUIRED ABSENCE OF LEFT LEG BELOW KNEE 02/05/2018 MARQUIS COLMENARES R AOC OPERATIONS INTELLIGENCE CHIEF Ot B36.9 SUPERFICIAL MYCOSIS, UNSPECIFIED 02/05/2018 MARQUIS COLMENARES AOC OPERATIONS INTELLIGENCE CHIEF Ot L03.116 CELLULITIS OF LEFT LOWER LIMB 02/05/2018 MARQUIS COLMENARES AOC OPERATIONS INTELLIGENCE CHIEF Ot L97.121 NON-PRS CHRONIC ULCER OF LEFT THIGH LIMI 02/05/2018 MARQUIS COLMENARES R AOC OPERATIONS INTELLIGENCE CHIEF Ot Z89.512 ACQUIRED ABSENCE OF LEFT LEG BELOW KNEE 02/13/2018 MARQUIS COLMENARES AOC OPERATIONS INTELLIGENCE CHIEF Ot B36.9 SUPERFICIAL MYCOSIS, UNSPECIFIED 02/13/2018 MARQUIS COLMENARES R AOC OPERATIONS INTELLIGENCE CHIEF Ot L03.116 CELLULITIS OF LEFT LOWER LIMB 02/13/2018 MARQUIS COLMENARES R AOC OPERATIONS INTELLIGENCE CHIEF Ot L97.122 NON-PRESSURE CHRONIC ULCER OF LEFT THIGH 02/13/2018 MARQUIS COLMENARES R AOC OPERATIONS INTELLIGENCE CHIEF Ot Z89.512 ACQUIRED ABSENCE OF LEFT LEG BELOW KNEE 03/01/2018 DEDRA MARQUIS Torres AOC OPERATIONS INTELLIGENCE CHIEF Ot B36.9 SUPERFICIAL MYCOSIS, UNSPECIFIED 03/01/2018 MARQUIS COLMENARES R AOC OPERATIONS INTELLIGENCE CHIEF Ot L03.116 CELLULITIS OF LEFT LOWER LIMB 03/01/2018 MARQUIS COLMENARES AOC OPERATIONS INTELLIGENCE CHIEF Ot L97.121 NON-PRS CHRONIC ULCER OF LEFT THIGH LIMI 03/01/2018 DEDRA MARQUIS Torres AOC OPERATIONS INTELLIGENCE CHIEF Ot Z89.512 ACQUIRED ABSENCE OF LEFT LEG BELOW KNEE 03/01/2018 MARQUIS COLMENARES AOC OPERATIONS INTELLIGENCE CHIEF Ot B36.9 SUPERFICIAL MYCOSIS, UNSPECIFIED 03/01/2018 MARQUIS COLMENARES R AOC OPERATIONS INTELLIGENCE CHIEF Ot L03.116 CELLULITIS OF LEFT LOWER LIMB 03/01/2018 MARQUIS COLMENARES R AOC OPERATIONS INTELLIGENCE CHIEF Ot L97.121 NON-PRS CHRONIC ULCER OF LEFT THIGH LIMI 03/01/2018 MARQUIS COLMENARES AOC OPERATIONS INTELLIGENCE CHIEF Ot Z89.512 ACQUIRED ABSENCE OF LEFT LEG BELOW KNEE 03/04/2018 MARQUIS COLMENARES AOC OPERATIONS INTELLIGENCE CHIEF Ot Z51.81 ENCOUNTER FOR THERAPEUTIC DRUG LEVEL MON 03/04/2018 MARQUIS COLMENARES R AOC OPERATIONS INTELLIGENCE CHIEF Ot Z79.899 OTHER [facility] (CURRENT) DRUG THERAPY 03/05/2018 MARQUIS COLMENARES R AOC OPERATIONS INTELLIGENCE CHIEF Ot Z51.81 ENCOUNTER FOR THERAPEUTIC DRUG LEVEL MON 03/05/2018 MARQUIS COLMENARES R AOC OPERATIONS INTELLIGENCE CHIEF Ot Z79.899 OTHER [facility] (CURRENT) DRUG THERAPY 03/11/2018 MARQUIS COLMENARES AOC OPERATIONS INTELLIGENCE CHIEF Ot B36.9 SUPERFICIAL MYCOSIS, UNSPECIFIED 03/11/2018 MARQUIS COLMENARES AOC OPERATIONS INTELLIGENCE CHIEF Ot L03.116 CELLULITIS OF LEFT LOWER LIMB 03/11/2018 MARQUIS COLMENARES AOC OPERATIONS INTELLIGENCE CHIEF Ot L97.122 NON-PRESSURE CHRONIC ULCER OF LEFT THIGH 03/11/2018 MARQUIS COLMENARES AOC OPERATIONS INTELLIGENCE CHIEF Ot Z89.512 ACQUIRED ABSENCE OF LEFT LEG BELOW KNEE 2019 MARQUIS COLMENARES R AOC OPERATIONS INTELLIGENCE CHIEF Ot L03.116 CELLULITIS OF LEFT LOWER LIMB 2019 MARQUIS COLMENARES AOC OPERATIONS INTELLIGENCE CHIEF Ot Z89.512 ACQUIRED ABSENCE OF LEFT LEG BELOW KNEE 2019 MARQUIS COLMENARES AOC OPERATIONS INTELLIGENCE CHIEF Ot B36.9 SUPERFICIAL MYCOSIS, UNSPECIFIED 2019 MARQUIS COLMENARES AOC OPERATIONS INTELLIGENCE CHIEF Ot L03.116 CELLULITIS OF LEFT LOWER LIMB 2019 MARQUIS COLMENARES AOC OPERATIONS INTELLIGENCE CHIEF Ot L97.122 NON-PRESSURE CHRONIC ULCER OF LEFT THIGH 2019 DEDRA MARQUIS R AOC OPERATIONS INTELLIGENCE CHIEF Ot Z89.512 ACQUIRED ABSENCE OF LEFT LEG BELOW KNEE 2019 DEDRAMARQUIS R AOC OPERATIONS INTELLIGENCE CHIEF Ot B36.9 SUPERFICIAL MYCOSIS, UNSPECIFIED 2019 DEDRA MARQUIS R AOC OPERATIONS INTELLIGENCE CHIEF Ot L03.116 CELLULITIS OF LEFT LOWER LIMB 2019 DEDRA MARQUIS R AOC OPERATIONS INTELLIGENCE CHIEF Ot L97.122 NON-PRESSURE CHRONIC ULCER OF LEFT THIGH 2019 DEDRA MARQUIS R AOC OPERATIONS INTELLIGENCE CHIEF Ot Z89.512 ACQUIRED ABSENCE OF LEFT LEG BELOW KNEE 2019 DEDRA MAR[facility] [employer] CHIEF Ot B36.9 SUPERFICIAL MYCOSIS, UNSPECIFIED 2019 DEDRA [facility] [employer] CHIEF Ot L03.116 CELLULITIS OF LEFT LOWER LIMB 2019 DEDRA [facility]QU[facility] [employer] CHIEF Ot L97.122 NON-PRESSURE CHRONIC ULCER OF LEFT THIGH 2019 MARQU[facility] COLMENARES [facility] [employer] CHIEF Ot Z89.512 ACQUIRED ABSENCE OF LEFT LEG BELOW KNEE 2019 DEDRA [facility]QUIS [employer] CHIEF Ot B36.9 SUPERFICIAL MYCOSIS, UNSPECIFIED 2019 DEDRA [facility]QUIS [employer] CHIEF Ot L03.116 CELLULITIS OF LEFT LOWER LIMB 2019 DEDRA MARQUIS [employer] CHIEF Ot L97.122 NON-PRESSURE CHRONIC ULCER OF LEFT THIGH 2019 [facility] COLMENARES [facility] [employer] CHIEF Ot Z89.512 ACQUIRED ABSENCE OF LEFT LEG BELOW KNEE 2019 [facility] COLMENARES [employer] CHIEF Ot B36.9 SUPERFICIAL MYCOSIS, UNSPECIFIED 2019 [facility] COLMENARES [facility] [employer] CHIEF Ot L03.116 CELLULITIS OF LEFT LOWER LIMB 2019 DEDRA MARQUIS [employer] CHIEF Ot L97.122 NON-PRESSURE CHRONIC ULCER OF LEFT THIGH 2019 [facility] COLMENARES [employer] CHIEF Ot Z89.512 ACQUIRED ABSENCE OF LEFT LEG BELOW KNEE 2019 [facility] COLMENARES [facility] [employer] CHIEF Ot B36.9 SUPERFICIAL MYCOSIS, UNSPECIFIED 2019 DEDRA MARQUIS [facility] [employer] CHIEF Ot L03.116 CELLULITIS OF LEFT LOWER LIMB 2019 DEDRA MARQUIS [employer] CHIEF Ot L97.121 NON-PRS CHRONIC ULCER OF LEFT THIGH LIMI 2019 DEDRA MARQUIS [facility] [employer] CHIEF Ot L97.122 NON-PRESSURE CHRONIC ULCER OF LEFT THIGH 2019 DEDRA MARQUIS [employer] CHIEF Ot Z89.512 ACQUIRED ABSENCE OF LEFT LEG BELOW KNEE 2019 [facility]QU[facility] COLMENARES [employer] CHIEF Ot B36.9 SUPERFICIAL MYCOSIS, UNSPECIFIED 2019 MARQU[facility] COLMENARES [employer] CHIEF Ot L03.116 CELLULITIS OF LEFT LOWER LIMB 2019 MARQUIS COLMENARES [employer] CHIEF Ot L97.121 NON-PRS CHRONIC ULCER OF LEFT THIGH LIMI 2019 DEDRA MARQUIS [employer] CHIEF Ot L97.122 NON-PRESSURE CHRONIC ULCER OF LEFT THIGH 2019 DEDRA MARQUIS [employer]TELL[employer] CHIEF Ot Z89.512 ACQUIRED ABSENCE OF LEFT LEG BELOW KNEE 2019 [facility]QU[facility] COLMENARES [employer]TE[employer] CHIEF Ot B36.9 SUPERFICIAL MYCOSIS, UNSPECIFIED 2019 [facility]QU[facility] COLMENARES [employer] CHIEF Ot L03.116 CELLULITIS OF LEFT LOWER LIMB 2019 MARQU[facility] COLMENARES [employer]TE[employer] CHIEF Ot L97.121 NON-PRS CHRONIC ULCER OF LEFT THIGH LIMI 2019 [facility]QU[facility] COLMENARES [employer]TE[employer] CHIEF Ot L97.122 NON-PRESSURE CHRONIC ULCER OF LEFT THIGH 2019 MARQU[facility] COLMENARES [employer] CHIEF Ot Z89.512 ACQUIRED ABSENCE OF LEFT LEG BELOW KNEE 2019 [facility]QU[facility] COLMENARES [employer] CHIEF Ot B36.9 SUPERFICIAL MYCOSIS, UNSPECIFIED 2019 [facility]QU[facility] COLMENARES [employer] CHIEF Ot L03.116 CELLULITIS OF LEFT LOWER LIMB 2019 MARQUIS COLMENARES [employer] CHIEF Ot L97.121 NON-PRS CHRONIC ULCER OF LEFT THIGH LIMI 2019 [facility] [employer] INTELLIGENCE CHIEF Ot Z89.512 ACQUIRED ABSENCE OF LEFT LEG BELOW KNEE 2019 [facility] CHIEF Ot B36.9 SUPERFICIAL MYCOSIS, UNSPECIFIED 2019 [facility] [employer] INTELL[employer] CHIEF Ot L03.116 CELLULITIS OF LEFT LOWER LIMB 2019 [facility] [employer] INTELLIGENCE CHIEF Ot L97.121 NON-PRS CHRONIC ULCER OF LEFT THIGH LIMI 2019 [facility] [employer] INTELLIGENCE CHIEF Ot Z89.512 ACQUIRED ABSENCE OF LEFT LEG BELOW KNEE 2019 [facility] [employer] INTELLIGENCE CHIEF Ot B36.9 SUPERFICIAL MYCOSIS, UNSPECIFIED 2019 [facility] APRN Ot L03.116 CELLULITIS OF LEFT LOWER LIMB 2019 [facility] APRN Ot L97.122 NON-PRESSURE CHRONIC ULCER OF LEFT THIGH 2019 [facility] APRN Ot Z89.512 ACQUIRED ABSENCE OF LEFT LEG BELOW KNEE 2019 [facility] APRN Ot Z51.81 ENCOUNTER FOR THERAPEUTIC DRUG LEVEL MON 2019 [facility] APRN Ot 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 7 MALIGNANT NEOPLASM OF [...] GRIFFIN DO, GALO D Ot Z79. 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 4 [facility] (CURRENT) USE OF INSULIN 09/05/2019 GRIFFIN DO, [...] GRIFFIN DO, GALO D Ot Z79. 4 [facility] (CURRENT) USE OF INSULIN 09/05/2019 GRIFFIN DO, [...] GRIFFIN DO, GALO D Ot Z79. 4 [facility] (CURRENT) USE OF INSULIN 09/05/2019 GRIFFIN DO, [...] GRIFFIN DO, GALO D Ot Z79. 4 [facility] (CURRENT) USE OF INSULIN 09/06/2019 GRIFFIN DO, [...] GRIFFIN DO, GALO D Ot Z79. 4 [facility] (CURRENT) USE OF INSULIN 09/07/2019 GRIFFIN DO, [...] GRIFFIN DO, GALO D Ot Z79. 4 [facility] (CURRENT) USE OF INSULIN 09/08/2019 GRIFFIN DO, [...] GRIFFIN DO, GALO D Ot Z79. 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 5 HYPERLIPIDEMIA, UNSPECIFIED 09/09/2019 [facility] 42 HYPOMAGNESEMIA 09/09/2019 [facility]86[facility] 0 DEHYDRATION 09/09/2019 [facility] E87. 6 HYPOKALEMIA 09/09/2019 [facility]10 ESSENTIAL (PRIMARY) HYPERTENSION 09/09/2019 [facility]. 0 NONRHEUMATIC AORTIC (VALVE) STENOSIS 09/09/2019 [facility] I95. 9 HYPOTENSION, UNSPECIFIED 09/09/2019 [facility] J18. 9 PNEUMONIA, UNSPECIFIED ORGANISM 09/09/2019 [facility] J91. 8 PLEURAL EFFUSION IN OTHER CONDITIONS CLA 09/09/2019 [facility] J96. 00 ACUTE RESPIRATORY FAILURE, UNSP W HYPOXI 09/09/2019 [facility] K56. 50 INTESTNL ADHESIONS, UNSP TO PARTIAL V 09/09/2019 [facility] K56. 7 ILEUS, UNSPECIFIED 09/09/2019 [facility] K91. 89 OTH POSTPROCEDURAL COMPLICATIONS AND DIS 09/09/2019 [facility] N40. 0 BENIGN PROSTATIC HYPERPLASIA WITHOUT LOW 09/09/2019 [facility] N99. 72 ACCIDENTAL PNCTR LAC OF A SYS ORG D 09/09/2019 [facility] R33. 9 RETENTION OF URINE, UNSPECIFIED 09/09/2019 [facility] Z79. 4 [facility] (CURRENT) USE OF INSULIN 09/09/2019 [facility] Z86. 73 PRSNL HX OF TIA (TIA), AND CEREB INFRC W 09/09/2019 [facility] 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 RIGHT LEG BELOW KNEE 09/09/2019 [facility] Z89.512 ACQUIRED ABSENCE OF LEFT LEG BELOW KNEE 10/15/2019 [facility] APRN Ot L03.116 CELLULITIS OF LEFT LOWER LIMB 10/15/2019 [facility] [employer] APRN Ot Z89.512 ACQUIRED ABSENCE OF LEFT LEG BELOW KNEE 10/15/2019 DEDRA [facility] R A[employer] OPERATIONS INTELLIGENCE CHIEF Ot B36.9 SUPERFICIAL MYCOSIS, UNSPECIFIED 10/15/2019 DEDRA, [facility] R AOC OPERATIONS INTELLIGENCE CHIEF Ot L03.116 CELLULITIS OF LEFT LOWER LIMB 10/15/2019 DEDRA, [facility] R AOC OPERATIONS INTELLIGENCE CHIEF Ot L97.122 NON-PRESSURE CHRONIC ULCER OF LEFT THIGH 10/15/2019 DEDRA [facility] [employer] A[employer] OPERATIONS INTELLIGENCE CHIEF Ot Z89.512 ACQUIRED ABSENCE OF LEFT LEG BELOW KNEE 10/15/2019 DEDRA, [facility] R AOC OPERATIONS INTELLIGENCE CHIEF Ot B36.9 SUPERFICIAL MYCOSIS, UNSPECIFIED 10/15/2019 DEDRA, [facility] R AOC OPERATIONS INTELLIGENCE CHIEF Ot L03.116 CELLULITIS OF LEFT LOWER LIMB 10/15/2019 DEDRA, [facility] R AOC OPERATIONS INTELLIGENCE CHIEF Ot L97.122 NON-PRESSURE CHRONIC ULCER OF LEFT THIGH 10/15/2019 DEDRA [facility] [employer] OPERATIONS INTELLIGENCE CHIEF Ot Z89.512 ACQUIRED ABSENCE OF LEFT LEG BELOW KNEE 10/15/2019 DEDRA [facility] [employer] OPERATIONS INTELLIGENCE CHIEF Ot B36.9 SUPERFICIAL MYCOSIS, UNSPECIFIED 10/15/2019 DEDRA, [facility] R AOC OPERATIONS INTELLIGENCE CHIEF Ot L03.116 CELLULITIS OF LEFT LOWER LIMB 10/15/2019 DEDRA, [facility] R AOC OPERATIONS INTELLIGENCE CHIEF Ot L97.122 NON-PRESSURE CHRONIC ULCER OF LEFT THIGH 10/15/2019 DEDRA [facility] R A[employer] OPERATIONS INTELLIGENCE CHIEF Ot Z89.512 ACQUIRED ABSENCE OF LEFT LEG BELOW KNEE 10/15/2019 DEDRA [facility] [employer] A[employer] OPERATIONS INTELLIGENCE CHIEF Ot B36.9 SUPERFICIAL MYCOSIS, UNSPECIFIED 10/15/2019 DEDRA, [facility] R AOC OPERATIONS INTELLIGENCE CHIEF Ot L03.116 CELLULITIS OF LEFT LOWER LIMB 10/15/2019 DEDRA [facility] R A[employer] OPERATIONS INTELLIGENCE CHIEF Ot L97.122 NON-PRESSURE CHRONIC ULCER OF LEFT THIGH 10/15/2019 DEDRA [facility] R AOC OPERATIONS INTELLIGENCE CHIEF Ot Z89.512 ACQUIRED ABSENCE OF LEFT LEG BELOW KNEE 10/15/2019 DEDRA, [facility] R AOC OPERATIONS INTELLIGENCE CHIEF Ot B36.9 SUPERFICIAL MYCOSIS, UNSPECIFIED 10/15/2019 DEDRA, [facility]IS R AOC OPERATIONS INTELLIGENCE CHIEF Ot L03.116 CELLULITIS OF LEFT LOWER LIMB 10/15/2019 DEDRA, [facility] R AOC OPERATIONS INTELLIGENCE CHIEF Ot L97.122 NON-PRESSURE CHRONIC ULCER OF LEFT THIGH 10/15/2019 DEDRA [facility] R A[employer] OPERATIONS INTELLIGENCE CHIEF Ot Z89.512 ACQUIRED ABSENCE OF LEFT LEG BELOW KNEE 10/15/2019 DEDRA, [facility] R AOC OPERATIONS INTELLIGENCE CHIEF Ot B36.9 SUPERFICIAL MYCOSIS, UNSPECIFIED 10/15/2019 DEDRA [facility] [employer] A[employer] OPERATIONS INTELLIGENCE CHIEF Ot L03.116 CELLULITIS OF LEFT LOWER LIMB 10/15/2019 DEDRA [facility] [employer] A[employer] OPERATIONS INTELLIGENCE CHIEF Ot L97.121 NON-PRS CHRONIC ULCER OF LEFT THIGH LIMI 10/15/2019 DEDRA, [facility] R AOC OPERATIONS INTELLIGENCE CHIEF Ot L97.122 NON-PRESSURE CHRONIC ULCER OF LEFT THIGH 10/15/2019 DEDRA [facility] R A[employer] OPERATIONS INTELLIGENCE CHIEF Ot Z89.512 ACQUIRED ABSENCE OF LEFT LEG BELOW KNEE 10/15/2019 DEDRA [facility] [employer] A[employer] OPERATIONS INTELLIGENCE CHIEF Ot B36.9 SUPERFICIAL MYCOSIS, UNSPECIFIED 10/15/2019 DEDRA [facility] R AOC OPERATIONS INTELLIGENCE CHIEF Ot L03.116 CELLULITIS OF LEFT LOWER LIMB 10/15/2019 DEDRA [facility] R AOC OPERATIONS INTELLIGENCE CHIEF Ot L97.121 NON-PRS CHRONIC ULCER OF LEFT THIGH LIMI 10/15/2019 DEDRA [facility] R AOC OPERATIONS INTELLIGENCE CHIEF Ot L97.122 NON-PRESSURE CHRONIC ULCER OF LEFT THIGH 10/15/2019 DEDRA [facility] R AOC OPERATIONS INTELLIGENCE CHIEF Ot Z89.512 ACQUIRED ABSENCE OF LEFT LEG BELOW KNEE 10/15/2019 DEDRA [facility] R AOC OPERATIONS INTELLIGENCE CHIEF Ot B36.9 SUPERFICIAL MYCOSIS, UNSPECIFIED 10/15/2019 DEDRA [facility] R AOC OPERATIONS INTELLIGENCE CHIEF Ot L03.116 CELLULITIS OF LEFT LOWER LIMB 10/15/2019 DEDRA [facility] R AOC OPERATIONS INTELLIGENCE CHIEF Ot L97.121 NON-PRS CHRONIC ULCER OF LEFT THIGH LIMI 10/15/2019 DEDRA [facility] R AOC OPERATIONS INTELLIGENCE CHIEF Ot L97.122 NON-PRESSURE CHRONIC ULCER OF LEFT THIGH 10/15/2019 DEDRA [facility] R AOC OPERATIONS INTELLIGENCE CHIEF Ot Z89.512 ACQUIRED ABSENCE OF LEFT LEG BELOW KNEE 10/15/2019 DEDRA [facility] R AOC OPERATIONS INTELLIGENCE CHIEF Ot B36.9 SUPERFICIAL MYCOSIS, UNSPECIFIED 10/15/2019 DEDRA [facility] R AOC OPERATIONS INTELLIGENCE CHIEF Ot L03.116 CELLULITIS OF LEFT LOWER LIMB 10/15/2019 DEDRA [facility] R AOC OPERATIONS INTELLIGENCE CHIEF Ot L97.121 NON-PRS CHRONIC ULCER OF LEFT THIGH LIMI 10/15/2019 DEDRA [facility] R AOC OPERATIONS INTELLIGENCE CHIEF Ot Z89.512 ACQUIRED ABSENCE OF LEFT LEG BELOW KNEE 10/15/2019 DEDRA [facility] R AOC OPERATIONS INTELLIGENCE CHIEF Ot B36.9 SUPERFICIAL MYCOSIS, UNSPECIFIED 10/15/2019 DEDRA, MAR[facility]IS R AOC OPERATIONS INTELLIGENCE CHIEF Ot L03.116 CELLULITIS OF LEFT LOWER LIMB 10/15/2019 DEDRA [facility] R AOC OPERATIONS INTELLIGENCE CHIEF Ot L97.121 NON-PRS CHRONIC ULCER OF LEFT THIGH LIMI 10/15/2019 [facility] AOC OPERATIONS INTELLIGENCE CHIEF Ot Z89.512 ACQUIRED ABSENCE OF LEFT LEG BELOW KNEE 10/15/2019 [facility] [employer] AOC OPERATIONS INTELLIGENCE CHIEF Ot B36.9 SUPERFICIAL MYCOSIS, UNSPECIFIED 10/15/2019 [facility] [employer] R AOC OPERATIONS INTELLIGENCE CHIEF Ot L03.116 CELLULITIS OF LEFT LOWER LIMB 10/15/2019 [facility] [employer] AOC OPERATIONS INTELLIGENCE CHIEF Ot L97.122 NON-PRESSURE CHRONIC ULCER OF LEFT THIGH 10/15/2019 [facility] [employer] AOC OPERATIONS INTELLIGENCE CHIEF Ot Z89.512 ACQUIRED ABSENCE OF LEFT LEG BELOW KNEE 10/15/2019 [facility] [employer] AOC OPERATIONS INTELLIGENCE CHIEF Ot Z51.81 ENCOUNTER FOR THERAPEUTIC DRUG LEVEL MON 10/15/2019 [facility] AOC OPERATIONS INTELLIGENCE CHIEF Ot Z79.899 OTHER [facility] (CURRENT) DRUG THERAPY 10/15/2019 KIANNA PERES MD, Ot E11.622 TYPE 2 DIABETES MELLITUS WITH OTHER SKIN 10/15/2019 KIANNA PERES MD, Ot I70.232 ATHSCL KAKE ARTERIES OF RIGHT LEG W UL 10/15/2019 [...] NON-PRESSURE CHRONIC ULCER OF RIGHT CALF 10/15/2019 KIANAN PERES MD, Ot 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 [...] UNSP MALIGNANT NEOPLASM OF 10/17/2019 [facility] AOC OPERATIONS INTELLIGENCE CHIEF Ot L03.116 CELLULITIS OF LEFT LOWER LIMB [...] LEG BELOW KNEE 10/17/2019 DEDRA, MARQUIS R AOC OPERATIONS INTELLIGENCE CHIEF Ot B36.9 SUPERFICIAL MYCOSIS, UNSPECIFIED 10/17/2019 DEDRA, MARQUIS R AOC OPERATIONS INTELLIGENCE CHIEF Ot L03.116 CELLULITIS OF LEFT LOWER LIMB 10/17/2019 DEDRA [facility] R AOC OPERATIONS INTELLIGENCE CHIEF Ot L97.122 NON-PRESSURE CHRONIC ULCER OF LEFT THIGH 10/17/2019 DEDRA [facility] R AOC OPERATIONS INTELLIGENCE CHIEF Ot Z89.512 ACQUIRED ABSENCE OF LEFT LEG BELOW KNEE 10/17/2019 DEDRA [facility] [employer] A[employer] OPERATIONS INTELLIGENCE CHIEF Ot B36.9 SUPERFICIAL MYCOSIS, UNSPECIFIED 10/17/2019 DEDRA, MAR[facility]IS R AOC OPERATIONS INTELLIGENCE CHIEF Ot L03.116 CELLULITIS OF LEFT LOWER LIMB 10/17/2019 DEDRA, MAR[facility]IS R AOC OPERATIONS INTELLIGENCE CHIEF Ot L97.122 NON-PRESSURE CHRONIC ULCER OF LEFT THIGH 10/17/2019 DEDRA [facility] R AOC OPERATIONS INTELLIGENCE CHIEF Ot Z89.512 ACQUIRED ABSENCE OF LEFT LEG BELOW KNEE 10/17/2019 DEDRA [facility] R AOC OPERATIONS INTELLIGENCE CHIEF Ot B36.9 SUPERFICIAL MYCOSIS, UNSPECIFIED 10/17/2019 DEDRA [facility] R AOC OPERATIONS INTELLIGENCE CHIEF Ot L03.116 CELLULITIS OF LEFT LOWER LIMB 10/17/2019 DEDRA [facility] R AOC OPERATIONS INTELLIGENCE CHIEF Ot L97.122 NON-PRESSURE CHRONIC ULCER OF LEFT THIGH 10/17/2019 DEDRA [facility] R AOC OPERATIONS INTELLIGENCE CHIEF Ot Z89.512 ACQUIRED ABSENCE OF LEFT LEG BELOW KNEE 10/17/2019 DEDRA [facility] R AOC OPERATIONS INTELLIGENCE CHIEF Ot B36.9 SUPERFICIAL MYCOSIS, UNSPECIFIED 10/17/2019 DEDRA, MARQUIS R AOC OPERATIONS INTELLIGENCE CHIEF Ot L03.116 CELLULITIS OF LEFT LOWER LIMB 10/17/2019 DEDRA [facility] R AOC OPERATIONS INTELLIGENCE CHIEF Ot L97.122 NON-PRESSURE CHRONIC ULCER OF LEFT THIGH 10/17/2019 DEDRA [facility] R AOC OPERATIONS INTELLIGENCE CHIEF Ot Z89.512 ACQUIRED ABSENCE OF LEFT LEG BELOW KNEE 10/17/2019 DEDRA [facility] R AOC OPERATIONS INTELLIGENCE CHIEF Ot B36.9 SUPERFICIAL MYCOSIS, UNSPECIFIED 10/17/2019 DEDRA, MARQUIS R AOC OPERATIONS INTELLIGENCE CHIEF Ot L03.116 CELLULITIS OF LEFT LOWER LIMB 10/17/2019 DEDRA [facility] R AOC OPERATIONS INTELLIGENCE CHIEF Ot L97.121 NON-PRS CHRONIC ULCER OF LEFT THIGH LIMI 10/17/2019 DEDRA [facility] R AOC OPERATIONS INTELLIGENCE CHIEF Ot L97.122 NON-PRESSURE CHRONIC ULCER OF LEFT THIGH 10/17/2019 DEDRA [facility] R AOC OPERATIONS INTELLIGENCE CHIEF Ot Z89.512 ACQUIRED ABSENCE OF LEFT LEG BELOW KNEE 10/17/2019 DEDRA [facility] R AOC OPERATIONS INTELLIGENCE CHIEF Ot B36.9 SUPERFICIAL MYCOSIS, UNSPECIFIED 10/17/2019 DEDRA [facility] R AOC OPERATIONS INTELLIGENCE CHIEF Ot L03.116 CELLULITIS OF LEFT LOWER LIMB 10/17/2019 DEDRA MAR[facility]IS R AOC OPERATIONS INTELLIGENCE CHIEF Ot L97.121 NON-PRS CHRONIC ULCER OF LEFT THIGH LIMI 10/17/2019 DEDRA [facility] R AOC OPERATIONS INTELLIGENCE CHIEF Ot L97.122 NON-PRESSURE CHRONIC ULCER OF LEFT THIGH 10/17/2019 DEDRA [facility] R AOC OPERATIONS INTELLIGENCE CHIEF Ot Z89.512 ACQUIRED ABSENCE OF LEFT LEG BELOW KNEE 10/17/2019 DEDRA [facility] R AOC OPERATIONS INTELLIGENCE CHIEF Ot B36.9 SUPERFICIAL MYCOSIS, UNSPECIFIED 10/17/2019 DEDRA [facility] R AOC OPERATIONS INTELLIGENCE CHIEF Ot L03.116 CELLULITIS OF LEFT LOWER LIMB 10/17/2019 DEDRA [facility] R AOC OPERATIONS INTELLIGENCE CHIEF Ot L97.121 NON-PRS CHRONIC ULCER OF LEFT THIGH LIMI 10/17/2019 DEDRA [facility]IS R AOC OPERATIONS INTELLIGENCE CHIEF Ot L97.122 NON-PRESSURE CHRONIC ULCER OF LEFT THIGH 10/17/2019 DEDRA [facility] R AOC OPERATIONS INTELLIGENCE CHIEF Ot Z89.512 ACQUIRED ABSENCE OF LEFT LEG BELOW KNEE 10/17/2019 DEDRA MAR[facility]IS R AOC OPERATIONS INTELLIGENCE CHIEF Ot B36.9 SUPERFICIAL MYCOSIS, UNSPECIFIED 10/17/2019 DEDRA [facility] R AOC OPERATIONS INTELLIGENCE CHIEF Ot L03.116 CELLULITIS OF LEFT LOWER LIMB 10/17/2019 DEDRA MAR[facility]IS R AOC OPERATIONS INTELLIGENCE CHIEF Ot L97.121 NON-PRS CHRONIC ULCER OF LEFT THIGH LIMI 10/17/2019 DEDRA [facility] R AOC OPERATIONS INTELLIGENCE CHIEF Ot Z89.512 ACQUIRED ABSENCE OF LEFT LEG BELOW KNEE 10/17/2019 DEDRA MAR[facility]IS R AOC OPERATIONS INTELLIGENCE CHIEF Ot B36.9 SUPERFICIAL MYCOSIS, UNSPECIFIED 10/17/2019 DEDRA [facility]IS R AOC OPERATIONS INTELLIGENCE CHIEF Ot L03.116 CELLULITIS OF LEFT LOWER LIMB 10/17/2019 DEDRA MAR[facility]IS R AOC OPERATIONS INTELLIGENCE CHIEF Ot L97.121 NON-PRS CHRONIC ULCER OF LEFT THIGH LIMI 10/17/2019 DEDRA [facility]IS R AOC OPERATIONS INTELLIGENCE CHIEF Ot Z89.512 ACQUIRED ABSENCE OF LEFT LEG BELOW KNEE 10/17/2019 DEDRA MAR[facility]IS R AOC OPERATIONS INTELLIGENCE CHIEF Ot B36.9 SUPERFICIAL MYCOSIS, UNSPECIFIED 10/17/2019 DEDRA MAR[facility]IS R AOC OPERATIONS INTELLIGENCE CHIEF Ot L03.116 CELLULITIS OF LEFT LOWER LIMB 10/17/2019 DEDRA MAR[facility]IS R AOC OPERATIONS INTELLIGENCE CHIEF Ot L97.122 NON-PRESSURE CHRONIC ULCER OF LEFT THIGH 10/17/2019 MARQUIS COLMENARES APRN Ot Z89.512 ACQUIRED ABSENCE OF LEFT LEG BELOW KNEE 10/17/2019 [facility] COLMEN[employer]ES AOC OPERATIONS INTELLIGENCE CHIEF Ot Z51.81 ENCOUNTER FOR THERAPEUTIC DRUG LEVEL MON 10/17/2019 [facility] COLMENARES APRN Ot 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 9 ACUTE KIDNEY FAILURE, UNSPECIFIED 11/12/2019 BERT ARREDONDO MD Ot N40. 0 BENIGN PROSTATIC [...] HISTORY OF ANTINEOPLASTIC CHEMO 11/18/2019 [facility] [employer]MEN[employer]ES AOC OPERATIONS INTELLIGENCE CHIEF Ot L03.116 CELLULITIS OF LEFT LOWER LIMB 11/18/2019 [facility] [employer]MEN[employer]ES AOC OPERATIONS INTELLIGENCE CHIEF Ot Z89.512 ACQUIRED ABSENCE OF LEFT LEG BELOW KNEE 11/18/2019 DEDRA, MARQUIS R AOC OPERATIONS INTELLIGENCE CHIEF Ot B36.9 SUPERFICIAL MYCOSIS, UNSPECIFIED 11/18/2019 DEDRA, MARQUIS R AOC OPERATIONS INTELLIGENCE CHIEF Ot L03.116 CELLULITIS OF LEFT LOWER LIMB 11/18/2019 DEDRA, MARQUIS R AOC OPERATIONS INTELLIGENCE CHIEF Ot L97.122 NON-PRESSURE CHRONIC ULCER OF LEFT THIGH 11/18/2019 DEDRA, MARQUIS R AOC OPERATIONS INTELLIGENCE CHIEF Ot Z89.512 ACQUIRED ABSENCE OF LEFT LEG BELOW KNEE 11/18/2019 DEDRA, MARQUIS R AOC OPERATIONS INTELLIGENCE CHIEF Ot B36.9 SUPERFICIAL MYCOSIS, UNSPECIFIED 11/18/2019 DEDRA, MARQUIS R AOC OPERATIONS INTELLIGENCE CHIEF Ot L03.116 CELLULITIS OF LEFT LOWER LIMB 11/18/2019 DEDRA, MARQUIS R AOC OPERATIONS INTELLIGENCE CHIEF Ot L97.122 NON-PRESSURE CHRONIC ULCER OF LEFT THIGH 11/18/2019 DEDRA, MARQUIS R AOC OPERATIONS INTELLIGENCE CHIEF Ot Z89.512 ACQUIRED ABSENCE OF LEFT LEG BELOW KNEE 11/18/2019 DEDRA, MARQUIS R AOC OPERATIONS INTELLIGENCE CHIEF Ot B36.9 SUPERFICIAL MYCOSIS, UNSPECIFIED 11/18/2019 DEDRA, MARQUIS R AOC OPERATIONS INTELLIGENCE CHIEF Ot L03.116 CELLULITIS OF LEFT LOWER LIMB 11/18/2019 DEDRA, MARQUIS R AOC OPERATIONS INTELLIGENCE CHIEF Ot L97.122 NON-PRESSURE CHRONIC ULCER OF LEFT THIGH 11/18/2019 DEDRA, MARQUIS R AOC OPERATIONS INTELLIGENCE CHIEF Ot Z89.512 ACQUIRED ABSENCE OF LEFT LEG BELOW KNEE 11/18/2019 DEDRA, MARQUIS R AOC OPERATIONS INTELLIGENCE CHIEF Ot B36.9 SUPERFICIAL MYCOSIS, UNSPECIFIED 11/18/2019 DEDRA, MARQUIS R AOC OPERATIONS INTELLIGENCE CHIEF Ot L03.116 CELLULITIS OF LEFT LOWER LIMB 11/18/2019 DEDRA, MARQUIS R AOC OPERATIONS INTELLIGENCE CHIEF Ot L97.122 NON-PRESSURE CHRONIC ULCER OF LEFT THIGH 11/18/2019 DEDRA, MARQUIS R AOC OPERATIONS INTELLIGENCE CHIEF Ot Z89.512 ACQUIRED ABSENCE OF LEFT LEG BELOW KNEE 11/18/2019 DEDRA, MARQUIS R AOC OPERATIONS INTELLIGENCE CHIEF Ot B36.9 SUPERFICIAL MYCOSIS, UNSPECIFIED 11/18/2019 DEDRA, MARQUIS R AOC OPERATIONS INTELLIGENCE CHIEF Ot L03.116 CELLULITIS OF LEFT LOWER LIMB 11/18/2019 DEDRA, MARQUIS R AOC OPERATIONS INTELLIGENCE CHIEF Ot L97.122 NON-PRESSURE CHRONIC ULCER OF LEFT THIGH 11/18/2019 DEDRA, MARQUIS R AOC OPERATIONS INTELLIGENCE CHIEF Ot Z89.512 ACQUIRED ABSENCE OF LEFT LEG BELOW KNEE 11/18/2019 DEDRA, MARQUIS R AOC OPERATIONS INTELLIGENCE CHIEF Ot B36.9 SUPERFICIAL MYCOSIS, UNSPECIFIED 11/18/2019 DEDRA, MARQUIS R AOC OPERATIONS INTELLIGENCE CHIEF Ot L03.116 CELLULITIS OF LEFT LOWER LIMB 11/18/2019 DEDRA MARQUIS R AOC OPERATIONS INTELLIGENCE CHIEF Ot L97.121 NON-PRS CHRONIC ULCER OF LEFT THIGH LIMI 11/18/2019 DEDRA, MARQUIS R AOC OPERATIONS INTELLIGENCE CHIEF Ot L97.122 NON-PRESSURE CHRONIC ULCER OF LEFT THIGH 11/18/2019 DEDRA MARQUIS R AOC OPERATIONS INTELLIGENCE CHIEF Ot Z89.512 ACQUIRED ABSENCE OF LEFT LEG BELOW KNEE 11/18/2019 DEDRA MARQU[facility] R AOC OPERATIONS INTELLIGENCE CHIEF Ot B36.9 SUPERFICIAL MYCOSIS, UNSPECIFIED 11/18/2019 DEDRA MARQUIS R AOC OPERATIONS INTELLIGENCE CHIEF Ot L03.116 CELLULITIS OF LEFT LOWER LIMB 11/18/2019 DEDRA, MARQUIS R AOC OPERATIONS INTELLIGENCE CHIEF Ot L97.121 NON-PRS CHRONIC ULCER OF LEFT THIGH LIMI 11/18/2019 DEDRA, MARQUIS R AOC OPERATIONS INTELLIGENCE CHIEF Ot L97.122 NON-PRESSURE CHRONIC ULCER OF LEFT THIGH 11/18/2019 DEDRA MARQUIS R AOC OPERATIONS INTELLIGENCE CHIEF Ot Z89.512 ACQUIRED ABSENCE OF LEFT LEG BELOW KNEE 11/18/2019 DEDRA MARQUIS R AOC OPERATIONS INTELLIGENCE CHIEF Ot B36.9 SUPERFICIAL MYCOSIS, UNSPECIFIED 11/18/2019 DEDRA MARQUIS R AOC OPERATIONS INTELLIGENCE CHIEF Ot L03.116 CELLULITIS OF LEFT LOWER LIMB 11/18/2019 DEDRA MARQUIS R AOC OPERATIONS INTELLIGENCE CHIEF Ot L97.121 NON-PRS CHRONIC ULCER OF LEFT THIGH LIMI 11/18/2019 DEDRA MARQUIS R AOC OPERATIONS INTELLIGENCE CHIEF Ot L97.122 NON-PRESSURE CHRONIC ULCER OF LEFT THIGH 11/18/2019 DEDRA MARQUIS R AOC OPERATIONS INTELLIGENCE CHIEF Ot Z89.512 ACQUIRED ABSENCE OF LEFT LEG BELOW KNEE 11/18/2019 DEDRA MARQUIS R AOC OPERATIONS INTELLIGENCE CHIEF Ot B36.9 SUPERFICIAL MYCOSIS, UNSPECIFIED 11/18/2019 DEDRA MARQUIS R AOC OPERATIONS INTELLIGENCE CHIEF Ot L03.116 CELLULITIS OF LEFT LOWER LIMB 11/18/2019 DEDRA MARQUIS R AOC OPERATIONS INTELLIGENCE CHIEF Ot L97.121 NON-PRS CHRONIC ULCER OF LEFT THIGH LIMI 11/18/2019 DEDRA, MARQUIS R AOC OPERATIONS INTELLIGENCE CHIEF Ot Z89.512 ACQUIRED ABSENCE OF LEFT LEG BELOW KNEE 11/18/2019 DEDRA, MARQUIS R AOC OPERATIONS INTELLIGENCE CHIEF Ot B36.9 SUPERFICIAL MYCOSIS, UNSPECIFIED 11/18/2019 DEDRA, MARQUIS R AOC OPERATIONS INTELLIGENCE CHIEF Ot L03.116 CELLULITIS OF LEFT LOWER LIMB 11/18/2019 DEDRA, MARQUIS R AOC OPERATIONS INTELLIGENCE CHIEF Ot L97.121 NON-PRS CHRONIC ULCER OF LEFT THIGH LIMI 11/18/2019 MARQUIS COLMENARES AOC OPERATIONS INTELLIGENCE CHIEF Ot Z89.512 ACQUIRED ABSENCE OF LEFT LEG BELOW KNEE 11/18/2019 MARQUIS COLMENARES AOC OPERATIONS INTELLIGENCE CHIEF Ot B36.9 SUPERFICIAL MYCOSIS, UNSPECIFIED 11/18/2019 MARQUIS COLMENARES AOC OPERATIONS INTELLIGENCE CHIEF Ot L03.116 CELLULITIS OF LEFT LOWER LIMB 11/18/2019 MARQUIS COLMENARES AOC OPERATIONS INTELLIGENCE CHIEF Ot L97.122 NON-PRESSURE CHRONIC ULCER OF LEFT THIGH 11/18/2019 [facility] [employer] OPERATIONS INTELLIGENCE CHIEF Ot Z89.512 ACQUIRED ABSENCE OF LEFT LEG BELOW KNEE 11/18/2019 [facility] [employer] [employer] OPERATIONS INTELLIGENCE CHIEF Ot Z51.81 ENCOUNTER FOR THERAPEUTIC DRUG LEVEL MON 11/18/2019 [facility] [employer]PERATIONS INTELLIGENCE CHIEF Ot Z79.899 OTHER [facility] (CURRENT) DRUG THERAPY 11/18/2019 KIANNA PERES MD, Ot E11.622 TYPE 2 DIABETES MELLITUS WITH OTHER SKIN 11/18/2019 KIANNA PERES MD, Ot 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 4 [facility] (CURRENT) USE OF INSULIN 11/21/2019 BRET ARREDONDO MD Ot Z79. 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 73 PRSNL HX OF TIA (TIA), AND CEREB INFRC W 11/27/2019 BRET ARREDONDO MD Ot Z89.441 ACQUIRED ABSENCE [...] RETENTION OF URINE, UNSPECIFIED 12/09/2019 BRET ARREDONDO MD Ot Z79. 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 9 TYPE 2 DIABETES MELLITUS WITHOUT COMPLIC 12/19/2019 BRET ARREDONDO MD Ot E78. 00 PURE HYPERCHOLESTEROLEMIA, UNSPECIFIED 12/19/2019 BRET ARREDONDO MD Ot I10 ESSENTIAL (PRIMARY) HYPERTENSION 12/19/2019 BRET ARREDONDO MD Ot N40. 1 BENIGN PROSTATIC HYPERPLASIA WITH LOWER 12/19/2019 BRET ARREDONDO MD Ot R33. 9 RETENTION OF URINE, UNSPECIFIED 12/19/2019 BRET ARREDONDO MD Ot Z79. 02 [facility] (CURRENT) USE OF ANTITHROMBOTI 12/19/2019 BRET ARREDONDO MD Ot Z79. 4 [facility] (CURRENT) USE OF INSULIN 12/19/2019 BRET ARREDONDO MD Ot Z79. 82 [facility] (CURRENT) USE OF ASPIRIN 12/19/2019 BRET ARREDONDO MD Ot Z85.038 PERSONAL HISTORY OF MALIGNANT NEOPLASM O 12/19/2019 BRET ARREDONDO MD, Ot Z86. 73 PRSNL HX OF TIA (TIA), AND CEREB INFRC W 12/19/2019 DEDRA [facility]QUIS R AOC OPERATIONS INTELLIGENCE CHIEF Ot L03.116 CELLULITIS OF LEFT LOWER LIMB 12/19/2019 DEDRA [facility]IS R A[employer] OPERATIONS INTELLIGENCE CHIEF Ot Z89.512 ACQUIRED ABSENCE OF LEFT LEG BELOW KNEE 12/19/2019 DEDRA [facility] R A[employer] OPERATIONS INTELLIGENCE CHIEF Ot B36.9 SUPERFICIAL MYCOSIS, UNSPECIFIED 12/19/2019 DEDRA [facility]IS R A[employer] OPERATIONS INTELLIGENCE CHIEF Ot L03.116 CELLULITIS OF LEFT LOWER LIMB 12/19/2019 DEDRA, MARQUIS R AOC OPERATIONS INTELLIGENCE CHIEF Ot L97.122 NON-PRESSURE CHRONIC ULCER OF LEFT THIGH 12/19/2019 DEDRA [facility]IS R AOC OPERATIONS INTELLIGENCE CHIEF Ot Z89.512 ACQUIRED ABSENCE OF LEFT LEG BELOW KNEE 12/19/2019 DEDRA MARQUIS R AOC OPERATIONS INTELLIGENCE CHIEF Ot B36.9 SUPERFICIAL MYCOSIS, UNSPECIFIED 12/19/2019 DEDRA, MARQUIS R AOC OPERATIONS INTELLIGENCE CHIEF Ot L03.116 CELLULITIS OF LEFT LOWER LIMB 12/19/2019 DEDRA MARQUIS R AOC OPERATIONS INTELLIGENCE CHIEF Ot L97.122 NON-PRESSURE CHRONIC ULCER OF LEFT THIGH 12/19/2019 DEDRA MARQUIS R AOC OPERATIONS INTELLIGENCE CHIEF Ot Z89.512 ACQUIRED ABSENCE OF LEFT LEG BELOW KNEE 12/19/2019 DEDRA MARQUIS R AOC OPERATIONS INTELLIGENCE CHIEF Ot B36.9 SUPERFICIAL MYCOSIS, UNSPECIFIED 12/19/2019 DEDRA MARQUIS R AOC OPERATIONS INTELLIGENCE CHIEF Ot L03.116 CELLULITIS OF LEFT LOWER LIMB 12/19/2019 DEDRA MARQUIS R AOC OPERATIONS INTELLIGENCE CHIEF Ot L97.122 NON-PRESSURE CHRONIC ULCER OF LEFT THIGH 12/19/2019 DEDRA MARQUIS R AOC OPERATIONS INTELLIGENCE CHIEF Ot Z89.512 ACQUIRED ABSENCE OF LEFT LEG BELOW KNEE 12/19/2019 DEDRA MARQUIS R AOC OPERATIONS INTELLIGENCE CHIEF Ot B36.9 SUPERFICIAL MYCOSIS, UNSPECIFIED 12/19/2019 DEDRA MARQUIS R AOC OPERATIONS INTELLIGENCE CHIEF Ot L03.116 CELLULITIS OF LEFT LOWER LIMB 12/19/2019 DEDRA MARQUIS R AOC OPERATIONS INTELLIGENCE CHIEF Ot L97.122 NON-PRESSURE CHRONIC ULCER OF LEFT THIGH 12/19/2019 DEDRA MARQUIS R AOC OPERATIONS INTELLIGENCE CHIEF Ot Z89.512 ACQUIRED ABSENCE OF LEFT LEG BELOW KNEE 12/19/2019 DEDRA MARQUIS R AOC OPERATIONS INTELLIGENCE CHIEF Ot B36.9 SUPERFICIAL MYCOSIS, UNSPECIFIED 12/19/2019 DEDRA MARQUIS R AOC OPERATIONS INTELLIGENCE CHIEF Ot L03.116 CELLULITIS OF LEFT LOWER LIMB 12/19/2019 DEDRA, MARQUIS R AOC OPERATIONS INTELLIGENCE CHIEF Ot L97.122 NON-PRESSURE CHRONIC ULCER OF LEFT THIGH 12/19/2019 DEDRA MARQUIS R AOC OPERATIONS INTELLIGENCE CHIEF Ot Z89.512 ACQUIRED ABSENCE OF LEFT LEG BELOW KNEE 12/19/2019 DEDRA MARQUIS R AOC OPERATIONS INTELLIGENCE CHIEF Ot B36.9 SUPERFICIAL MYCOSIS, UNSPECIFIED 12/19/2019 DEDRA MARQUIS R AOC OPERATIONS INTELLIGENCE CHIEF Ot L03.116 CELLULITIS OF LEFT LOWER LIMB 12/19/2019 DEDRA MARQUIS R AOC OPERATIONS INTELLIGENCE CHIEF Ot L97.121 NON-PRS CHRONIC ULCER OF LEFT THIGH LIMI 12/19/2019 DEDRA, MARQUIS R AOC OPERATIONS INTELLIGENCE CHIEF Ot L97.122 NON-PRESSURE CHRONIC ULCER OF LEFT THIGH 12/19/2019 DEDRA MARQUIS R AOC OPERATIONS INTELLIGENCE CHIEF Ot Z89.512 ACQUIRED ABSENCE OF LEFT LEG BELOW KNEE 12/19/2019 DEDRA MARQUIS R AOC OPERATIONS INTELLIGENCE CHIEF Ot B36.9 SUPERFICIAL MYCOSIS, UNSPECIFIED 12/19/2019 DEDRA MARQUIS R AOC OPERATIONS INTELLIGENCE CHIEF Ot L03.116 CELLULITIS OF LEFT LOWER LIMB 12/19/2019 DEDRA MARQUIS R AOC OPERATIONS INTELLIGENCE CHIEF Ot L97.121 NON-PRS CHRONIC ULCER OF LEFT THIGH LIMI 12/19/2019 DEDRA MARQUIS R AOC OPERATIONS INTELLIGENCE CHIEF Ot L97.122 NON-PRESSURE CHRONIC ULCER OF LEFT THIGH 12/19/2019 DEDRA MARQUIS R AOC OPERATIONS INTELLIGENCE CHIEF Ot Z89.512 ACQUIRED ABSENCE OF LEFT LEG BELOW KNEE 12/19/2019 DEDRA MARQUIS R AOC OPERATIONS INTELLIGENCE CHIEF Ot B36.9 SUPERFICIAL MYCOSIS, UNSPECIFIED 12/19/2019 DEDAR MARQUIS R AOC OPERATIONS INTELLIGENCE CHIEF Ot L03.116 CELLULITIS OF LEFT LOWER LIMB 12/19/2019 DEDRA MARQUIS R AOC OPERATIONS INTELLIGENCE CHIEF Ot L97.121 NON-PRS CHRONIC ULCER OF LEFT THIGH LIMI 12/19/2019 DEDRA, MARQUIS R AOC OPERATIONS INTELLIGENCE CHIEF Ot L97.122 NON-PRESSURE CHRONIC ULCER OF LEFT THIGH 12/19/2019 DEDRA MARQUIS R AOC OPERATIONS INTELLIGENCE CHIEF Ot Z89.512 ACQUIRED ABSENCE OF LEFT LEG BELOW KNEE 12/19/2019 DEDRA MARQUIS R AOC OPERATIONS INTELLIGENCE CHIEF Ot B36.9 SUPERFICIAL MYCOSIS, UNSPECIFIED 12/19/2019 DEDRA, MARQUIS R AOC OPERATIONS INTELLIGENCE CHIEF Ot L03.116 CELLULITIS OF LEFT LOWER LIMB 12/19/2019 DEDRA MARQUIS R AOC OPERATIONS INTELLIGENCE CHIEF Ot L97.121 NON-PRS CHRONIC ULCER OF LEFT THIGH LIMI 12/19/2019 DEDRA, MARQUIS R AOC OPERATIONS INTELLIGENCE CHIEF Ot Z89.512 ACQUIRED ABSENCE OF LEFT LEG BELOW KNEE 12/19/2019 DEDRA, MARQUIS R AOC OPERATIONS INTELLIGENCE CHIEF Ot B36.9 SUPERFICIAL MYCOSIS, UNSPECIFIED 12/19/2019 DEDRA, MARQUIS R AOC OPERATIONS INTELLIGENCE CHIEF Ot L03.116 CELLULITIS OF LEFT LOWER LIMB 12/19/2019 DEDRA MARQUIS R AOC OPERATIONS INTELLIGENCE CHIEF Ot L97.121 NON-PRS CHRONIC ULCER OF LEFT THIGH LIMI 12/19/2019 DEDRA MARQUIS R AOC OPERATIONS INTELLIGENCE CHIEF Ot Z89.512 ACQUIRED ABSENCE OF LEFT LEG BELOW KNEE 12/19/2019 DEDRA, MARQUIS R AOC OPERATIONS INTELLIGENCE CHIEF Ot B36.9 SUPERFICIAL MYCOSIS, UNSPECIFIED 12/19/2019 DEDRA, MARQUIS R AOC OPERATIONS INTELLIGENCE CHIEF Ot L03.116 CELLULITIS OF LEFT LOWER LIMB 12/19/2019 DEDRA MARQUIS R AOC OPERATIONS INTELLIGENCE CHIEF Ot L97.122 NON-PRESSURE CHRONIC ULCER OF LEFT THIGH 12/19/2019 DEDRA MARQUIS R AOC OPERATIONS INTELLIGENCE CHIEF Ot Z89.512 ACQUIRED ABSENCE OF LEFT LEG BELOW KNEE 12/19/2019 DEDRA MARQUIS R AOC OPERATIONS INTELLIGENCE CHIEF Ot Z51.81 ENCOUNTER FOR THERAPEUTIC DRUG LEVEL MON 12/19/2019 DEDRA MARQUIS R AOC OPERATIONS INTELLIGENCE CHIEF Ot Z79.899 OTHER [facility] (CURRENT) DRUG THERAPY 12/19/2019 KIANNA PERES MD Ot E11.622 TYPE 2 DIABETES MELLITUS WITH OTHER SKIN 12/19/2019 KIANNA PERES MD Ot I70.232 ATHSCL KAKE ARTERIES OF RIGHT LEG W UL 12/19/2019 KIANNA PERES MD, Ot L97.212 NON-PRESSURE CHRONIC ULCER OF RIGHT CALF 12/19/2019 KIANNA PERES MD, Ot 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 RIGHT LEG BELOW KNEE 12/19/2019 KIANNA PERES MD, Ot Z89.512 ACQUIRED ABSENCE OF LEFT LEG BELOW KNEE 12/19/2019 KIANNA PERES MD, Ot E11.622 TYPE 2 DIABETES MELLITUS WITH OTHER SKIN 12/19/2019 KIANNA PERES MD Ot L97.212 NON-PRESSURE CHRONIC ULCER OF RIGHT CALF 12/19/2019 KIANNA PERES MD Ot 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 RIGHT LEG BELOW KNEE 12/19/2019 KIANNA PERES MD Ot Z89.512 ACQUIRED ABSENCE OF LEFT LEG BELOW KNEE 12/19/2019 KIANNA PERES MD, Ot E11.622 TYPE 2 DIABETES MELLITUS WITH OTHER SKIN 12/19/2019 KIANNA PERES MD Ot L97.212 NON-PRESSURE CHRONIC ULCER OF RIGHT CALF 12/19/2019 KIANNA PERES MD, Ot 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 RIGHT LEG BELOW KNEE 12/19/2019 KIANNA PERES MD Ot Z89.512 ACQUIRED ABSENCE OF LEFT LEG BELOW KNEE 12/19/2019 KIANNA PERES MD, Ot E11.622 TYPE 2 DIABETES MELLITUS WITH OTHER SKIN 12/19/2019 KIANNA PERES MD Ot L97.212 NON-PRESSURE CHRONIC ULCER OF RIGHT CALF 12/19/2019 KIANNA PERES MD Ot 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 RIGHT LEG BELOW KNEE 12/19/2019 KIANNA PERES MD Ot Z89.512 ACQUIRED ABSENCE OF LEFT LEG BELOW KNEE 12/19/2019 KIANNA PERES MD Ot E11.622 TYPE 2 DIABETES MELLITUS WITH OTHER SKIN 12/19/2019 KIANNA PERES MD Ot L97.212 NON-PRESSURE CHRONIC ULCER OF RIGHT CALF 12/19/2019 KIANNA PERES MD Ot 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 RIGHT LEG BELOW KNEE 12/19/2019 KIANNA PERES MD Ot Z89.512 ACQUIRED ABSENCE OF LEFT LEG BELOW KNEE 12/19/2019 KIANNA PERES MD Ot E11.622 TYPE 2 DIABETES MELLITUS WITH OTHER SKIN 12/19/2019 KIANNA PERES MD Ot L97.212 NON-PRESSURE CHRONIC ULCER OF RIGHT CALF 12/19/2019 KIANNA PERES MD Ot 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 RIGHT LEG BELOW KNEE 12/19/2019 KIANNA PERES MD Ot Z89.512 ACQUIRED ABSENCE OF LEFT LEG BELOW KNEE 12/19/2019 GALO GRIFFIN DO Ot C18. 9 MALIGNANT NEOPLASM OF COLON, UNSPECIFIED 12/19/2019 GALO GRIFFIN DO Ot N32. 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 9 TYPE 2 DIABETES MELLITUS WITHOUT COMPLIC 12/22/2019 BRET ARREDONDO MD Ot E78. 00 PURE HYPERCHOLESTEROLEMIA, UNSPECIFIED 12/22/2019 BRET ARREDONDO MD Ot I10 ESSENTIAL (PRIMARY) HYPERTENSION 12/22/2019 BRET ARREDONDO MD, Ot N40. 1 BENIGN PROSTATIC HYPERPLASIA WITH LOWER 12/22/2019 BRET ARREDONDO MD Ot R33. 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 4 HAT STOCK LAMINATING MACHINE OPERATOR (CURRENT) USE OF INSULIN 12/22/2019 BRET ARREDONDO MD, Ot Z79. 82 [facility] (CURRENT) USE OF ASPIRIN 12/22/2019 BRET ARREDONDO MD, Ot Z85.038 PERSONAL HISTORY OF MALIGNANT NEOPLASM O 12/22/2019 BRET ARREDONDO MD, Ot Z86. 73 PRSNL HX OF TIA (TIA), AND CEREB INFRC W 12/29/2019 MARQUIS COLMENARES APRN Ot L03.116 CELLULITIS OF LEFT LOWER LIMB 12/29/2019 DEDRA, MARQUIS R AOC OPERATIONS INTELLIGENCE CHIEF Ot Z89.512 ACQUIRED ABSENCE OF LEFT LEG BELOW KNEE 12/29/2019 DEDRA, MARQUIS R AOC OPERATIONS INTELLIGENCE CHIEF Ot B36.9 SUPERFICIAL MYCOSIS, UNSPECIFIED 12/29/2019 DEDRA, MARQUIS R AOC OPERATIONS INTELLIGENCE CHIEF Ot L03.116 CELLULITIS OF LEFT LOWER LIMB 12/29/2019 DEDRA, MARQUIS R AOC OPERATIONS INTELLIGENCE CHIEF Ot L97.122 NON-PRESSURE CHRONIC ULCER OF LEFT THIGH 12/29/2019 DEDRA, MARQUIS R AOC OPERATIONS INTELLIGENCE CHIEF Ot Z89.512 ACQUIRED ABSENCE OF LEFT LEG BELOW KNEE 12/29/2019 DEDRA, MARQUIS R AOC OPERATIONS INTELLIGENCE CHIEF Ot B36.9 SUPERFICIAL MYCOSIS, UNSPECIFIED 12/29/2019 DEDRA, MARQUIS R AOC OPERATIONS INTELLIGENCE CHIEF Ot L03.116 CELLULITIS OF LEFT LOWER LIMB 12/29/2019 DEDRA, MARQUIS R AOC OPERATIONS INTELLIGENCE CHIEF Ot L97.122 NON-PRESSURE CHRONIC ULCER OF LEFT THIGH 12/29/2019 DEDRA, MARQUIS R AOC OPERATIONS INTELLIGENCE CHIEF Ot Z89.512 ACQUIRED ABSENCE OF LEFT LEG BELOW KNEE 12/29/2019 DEDRA, MARQUIS R AOC OPERATIONS INTELLIGENCE CHIEF Ot B36.9 SUPERFICIAL MYCOSIS, UNSPECIFIED 12/29/2019 DEDRA, MARQUIS R AOC OPERATIONS INTELLIGENCE CHIEF Ot L03.116 CELLULITIS OF LEFT LOWER LIMB 12/29/2019 DEDRA, MARQUIS R AOC OPERATIONS INTELLIGENCE CHIEF Ot L97.122 NON-PRESSURE CHRONIC ULCER OF LEFT THIGH 12/29/2019 DEDRA, MARQUIS R AOC OPERATIONS INTELLIGENCE CHIEF Ot Z89.512 ACQUIRED ABSENCE OF LEFT LEG BELOW KNEE 12/29/2019 DEDRA, MARQUIS R AOC OPERATIONS INTELLIGENCE CHIEF Ot B36.9 SUPERFICIAL MYCOSIS, UNSPECIFIED 12/29/2019 DEDRA, MARQUIS R AOC OPERATIONS INTELLIGENCE CHIEF Ot L03.116 CELLULITIS OF LEFT LOWER LIMB 12/29/2019 DEDRA, MARQUIS R AOC OPERATIONS INTELLIGENCE CHIEF Ot L97.122 NON-PRESSURE CHRONIC ULCER OF LEFT THIGH 12/29/2019 DEDRA, MARQUIS R AOC OPERATIONS INTELLIGENCE CHIEF Ot Z89.512 ACQUIRED ABSENCE OF LEFT LEG BELOW KNEE 12/29/2019 DEDRA, MARQUIS R AOC OPERATIONS INTELLIGENCE CHIEF Ot B36.9 SUPERFICIAL MYCOSIS, UNSPECIFIED 12/29/2019 DEDRA, MARQUIS R AOC OPERATIONS INTELLIGENCE CHIEF Ot L03.116 CELLULITIS OF LEFT LOWER LIMB 12/29/2019 DEDRA, MARQUIS R AOC OPERATIONS INTELLIGENCE CHIEF Ot L97.122 NON-PRESSURE CHRONIC ULCER OF LEFT THIGH 12/29/2019 DEDRA, MARQUIS R AOC OPERATIONS INTELLIGENCE CHIEF Ot Z89.512 ACQUIRED ABSENCE OF LEFT LEG BELOW KNEE 12/29/2019 DEDRA, MARQUIS R AOC OPERATIONS INTELLIGENCE CHIEF Ot B36.9 SUPERFICIAL MYCOSIS, UNSPECIFIED 12/29/2019 DEDRA MARQUIS R AOC OPERATIONS INTELLIGENCE CHIEF Ot L03.116 CELLULITIS OF LEFT LOWER LIMB 12/29/2019 DEDRA MARQUIS R AOC OPERATIONS INTELLIGENCE CHIEF Ot L97.121 NON-PRS CHRONIC ULCER OF LEFT THIGH LIMI 12/29/2019 DEDRA MARQUIS R AOC OPERATIONS INTELLIGENCE CHIEF Ot L97.122 NON-PRESSURE CHRONIC ULCER OF LEFT THIGH 12/29/2019 DEDRA MARQUIS R AOC OPERATIONS INTELLIGENCE CHIEF Ot Z89.512 ACQUIRED ABSENCE OF LEFT LEG BELOW KNEE 12/29/2019 DEDRA MARQUIS R AOC OPERATIONS INTELLIGENCE CHIEF Ot B36.9 SUPERFICIAL MYCOSIS, UNSPECIFIED 12/29/2019 DEDRA MARQUIS R AOC OPERATIONS INTELLIGENCE CHIEF Ot L03.116 CELLULITIS OF LEFT LOWER LIMB 12/29/2019 DEDRA MARQUIS R AOC OPERATIONS INTELLIGENCE CHIEF Ot L97.121 NON-PRS CHRONIC ULCER OF LEFT THIGH LIMI 12/29/2019 DEDRA MARQUIS R AOC OPERATIONS INTELLIGENCE CHIEF Ot L97.122 NON-PRESSURE CHRONIC ULCER OF LEFT THIGH 12/29/2019 PASCUAL COLMENARESN R AOC OPERATIONS INTELLIGENCE CHIEF Ot Z89.512 ACQUIRED ABSENCE OF LEFT LEG BELOW KNEE 12/29/2019 DEDRA MARQUIS R AOC OPERATIONS INTELLIGENCE CHIEF Ot B36.9 SUPERFICIAL MYCOSIS, UNSPECIFIED 12/29/2019 DEDRA MARQUIS R AOC OPERATIONS INTELLIGENCE CHIEF Ot L03.116 CELLULITIS OF LEFT LOWER LIMB 12/29/2019 PASCUAL COLMENARESN R AOC OPERATIONS INTELLIGENCE CHIEF Ot L97.121 NON-PRS CHRONIC ULCER OF LEFT THIGH LIMI 12/29/2019 DEDRA MARQUIS R AOC OPERATIONS INTELLIGENCE CHIEF Ot L97.122 NON-PRESSURE CHRONIC ULCER OF LEFT THIGH 12/29/2019 PASCUAL COLMENARESN R AOC OPERATIONS INTELLIGENCE CHIEF Ot Z89.512 ACQUIRED ABSENCE OF LEFT LEG BELOW KNEE 12/29/2019 MARQUIS COLMENARES R AOC OPERATIONS INTELLIGENCE CHIEF Ot B36.9 SUPERFICIAL MYCOSIS, UNSPECIFIED 12/29/2019 DEDRA MARQUIS R AOC OPERATIONS INTELLIGENCE CHIEF Ot L03.116 CELLULITIS OF LEFT LOWER LIMB 12/29/2019 DEDRA MARQUIS R AOC OPERATIONS INTELLIGENCE CHIEF Ot L97.121 NON-PRS CHRONIC ULCER OF LEFT THIGH LIMI 12/29/2019 DEDRA MARQUIS R AOC OPERATIONS INTELLIGENCE CHIEF Ot Z89.512 ACQUIRED ABSENCE OF LEFT LEG BELOW KNEE 12/29/2019 DEDRA MARQUIS R AOC OPERATIONS INTELLIGENCE CHIEF Ot B36.9 SUPERFICIAL MYCOSIS, UNSPECIFIED 12/29/2019 DEDRA MARQUIS R AOC OPERATIONS INTELLIGENCE CHIEF Ot L03.116 CELLULITIS OF LEFT LOWER LIMB 12/29/2019 MARQUIS COLMENARES AOC OPERATIONS INTELLIGENCE CHIEF Ot L97.121 NON-PRS CHRONIC ULCER OF LEFT THIGH LIMI 12/29/2019 MARQUIS COLMENARES R AOC OPERATIONS INTELLIGENCE CHIEF Ot Z89.512 ACQUIRED ABSENCE OF LEFT LEG BELOW KNEE 12/29/2019 MARQUIS COLMENARES R AOC OPERATIONS INTELLIGENCE CHIEF Ot B36.9 SUPERFICIAL MYCOSIS, UNSPECIFIED 12/29/2019 MARQUIS COLMENARES R AOC OPERATIONS INTELLIGENCE CHIEF Ot L03.116 CELLULITIS OF LEFT LOWER LIMB 12/29/2019 MARQUIS COLMENARES R AOC OPERATIONS INTELLIGENCE CHIEF Ot L97.122 NON-PRESSURE CHRONIC ULCER OF LEFT THIGH 12/29/2019 DEDRA MARQUIS R AOC OPERATIONS INTELLIGENCE CHIEF Ot Z89.512 ACQUIRED ABSENCE OF LEFT LEG BELOW KNEE 12/29/2019 MARQUIS COLMENARES AOC OPERATIONS INTELLIGENCE CHIEF Ot Z51.81 ENCOUNTER FOR THERAPEUTIC DRUG LEVEL MON 12/29/2019 MARQUIS COLMENARES AOC OPERATIONS INTELLIGENCE CHIEF Ot 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 12/29/2019 KIANNA PERES MD, Ot E11.622 TYPE 2 DIABETES MELLITUS WITH OTHER SKIN 12/29/2019 KIANNA PERES MD, Ot I70.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 KAKE ARTERIES OF RIGHT LEG W UL 12/29/2019 KIANNA PERES MD, Ot L97.212 NON-PRESSURE CHRONIC ULCER OF RIGHT CALF 12/29/2019 KIANNA PERES MD, Ot 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 RIGHT LEG BELOW KNEE 12/29/2019 KIANNA PERES MD, Ot Z89.512 ACQUIRED ABSENCE OF LEFT LEG BELOW KNEE 12/29/2019 KIANNA PERES MD, Ot E11.622 TYPE 2 DIABETES MELLITUS WITH OTHER SKIN 12/29/2019 KIANNA PERES MD, Ot L97.212 NON-PRESSURE CHRONIC ULCER OF RIGHT CALF 12/29/2019 KIANNA PERES MD Ot 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 RIGHT LEG BELOW KNEE 12/29/2019 KIANNA PERES MD Ot Z89.512 ACQUIRED ABSENCE OF LEFT LEG BELOW KNEE 12/29/2019 KIANNA PERES MD, Ot E11.622 TYPE 2 DIABETES MELLITUS WITH OTHER SKIN 12/29/2019 KIANNA PERES MD, Ot L97.212 NON-PRESSURE CHRONIC ULCER OF RIGHT CALF 12/29/2019 KIANNA PERES MD Ot 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 RIGHT LEG BELOW KNEE 12/29/2019 KIANNA PERES MD Ot Z89.512 ACQUIRED ABSENCE OF LEFT LEG BELOW KNEE 12/29/2019 KIANNA PERES MD, Ot E11.622 TYPE 2 DIABETES MELLITUS WITH OTHER SKIN 12/29/2019 KIANNA PERES MD Ot L97.212 NON-PRESSURE CHRONIC ULCER OF RIGHT CALF 12/29/2019 KIANNA PERES MD Ot 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 RIGHT LEG BELOW KNEE 12/29/2019 KIANNA PERES MD Ot Z89.512 ACQUIRED ABSENCE OF LEFT LEG BELOW KNEE 12/29/2019 KIANNA PREES MD, Ot E11.622 TYPE 2 DIABETES MELLITUS WITH OTHER SKIN 12/29/2019 KIANNA PERES MD Ot L97.212 NON-PRESSURE CHRONIC ULCER OF RIGHT CALF 12/29/2019 KIANNA PERES MD, Ot 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 RIGHT LEG BELOW KNEE 12/29/2019 KIANNA PERES MD, Ot Z89.512 ACQUIRED ABSENCE OF LEFT LEG BELOW KNEE 12/29/2019 KIANNA PERES MD, Ot E11.622 TYPE 2 DIABETES MELLITUS WITH OTHER SKIN 12/29/2019 KIANNA PERES MD, Ot L97.212 NON-PRESSURE CHRONIC ULCER OF RIGHT CALF 12/29/2019 KIANNA PERES MD Ot 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 RIGHT LEG BELOW KNEE 12/29/2019 KIANNA PERES MD Ot Z89.512 ACQUIRED ABSENCE OF LEFT LEG BELOW KNEE 12/29/2019 GALO GRIFFIN DO Ot C18. 9 MALIGNANT NEOPLASM OF COLON, UNSPECIFIED 12/29/2019 GALO GRIFFIN DO Ot N32. 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 12/29/2019 SCOTT LEI MD Ot R91.8 OTHER NONSPECIFIC ABNORMAL FINDING OF VISHAL 12/30/2019 SCOTT LEI MD Ot C18.7 MALIGNANT NEOPLASM OF SIGMOID COLON 12/30/2019 SCOTT LEI MD Ot C77.2 SECONDARY AND UNSP MALIGNANT NEOPLASM OF 12/30/2019 DEDRA, MARQUIS R AOC OPERATIONS INTELLIGENCE CHIEF Ot L03.116 CELLULITIS OF LEFT LOWER LIMB 12/30/2019 DEDRA MARQUIS R AOC OPERATIONS INTELLIGENCE CHIEF Ot Z89.512 ACQUIRED ABSENCE OF LEFT LEG BELOW KNEE 12/30/2019 DEDRA, MARQUIS R AOC OPERATIONS INTELLIGENCE CHIEF Ot B36.9 SUPERFICIAL MYCOSIS, UNSPECIFIED 12/30/2019 DEDRA, MARQUIS R AOC OPERATIONS INTELLIGENCE CHIEF Ot L03.116 CELLULITIS OF LEFT LOWER LIMB 12/30/2019 DEDRA, MARQUIS R AOC OPERATIONS INTELLIGENCE CHIEF Ot L97.122 NON-PRESSURE CHRONIC ULCER OF LEFT THIGH 12/30/2019 DEDRA, MARQUIS R AOC OPERATIONS INTELLIGENCE CHIEF Ot Z89.512 ACQUIRED ABSENCE OF LEFT LEG BELOW KNEE 12/30/2019 DEDRA, MARQUIS R AOC OPERATIONS INTELLIGENCE CHIEF Ot B36.9 SUPERFICIAL MYCOSIS, UNSPECIFIED 12/30/2019 DEDRA, MARQUIS R AOC OPERATIONS INTELLIGENCE CHIEF Ot L03.116 CELLULITIS OF LEFT LOWER LIMB 12/30/2019 DEDRA, MARQUIS R AOC OPERATIONS INTELLIGENCE CHIEF Ot L97.122 NON-PRESSURE CHRONIC ULCER OF LEFT THIGH 12/30/2019 DEDRA, MARQUIS R AOC OPERATIONS INTELLIGENCE CHIEF Ot Z89.512 ACQUIRED ABSENCE OF LEFT LEG BELOW KNEE 12/30/2019 DEDRA, MARQUIS R AOC OPERATIONS INTELLIGENCE CHIEF Ot B36.9 SUPERFICIAL MYCOSIS, UNSPECIFIED 12/30/2019 DEDRA, MARQUIS R AOC OPERATIONS INTELLIGENCE CHIEF Ot L03.116 CELLULITIS OF LEFT LOWER LIMB 12/30/2019 DEDRA, MARQUIS R AOC OPERATIONS INTELLIGENCE CHIEF Ot L97.122 NON-PRESSURE CHRONIC ULCER OF LEFT THIGH 12/30/2019 DEDRA, MARQUIS R AOC OPERATIONS INTELLIGENCE CHIEF Ot Z89.512 ACQUIRED ABSENCE OF LEFT LEG BELOW KNEE 12/30/2019 DEDRA, MARQUIS R AOC OPERATIONS INTELLIGENCE CHIEF Ot B36.9 SUPERFICIAL MYCOSIS, UNSPECIFIED 12/30/2019 DEDRA, MARQUIS R AOC OPERATIONS INTELLIGENCE CHIEF Ot L03.116 CELLULITIS OF LEFT LOWER LIMB 12/30/2019 DEDRA, MARQUIS R AOC OPERATIONS INTELLIGENCE CHIEF Ot L97.122 NON-PRESSURE CHRONIC ULCER OF LEFT THIGH 12/30/2019 DEDRA, MARQUIS R AOC OPERATIONS INTELLIGENCE CHIEF Ot Z89.512 ACQUIRED ABSENCE OF LEFT LEG BELOW KNEE 12/30/2019 DEDRA, MARQUIS R AOC OPERATIONS INTELLIGENCE CHIEF Ot B36.9 SUPERFICIAL MYCOSIS, UNSPECIFIED 12/30/2019 DEDRA, MARQUIS R AOC OPERATIONS INTELLIGENCE CHIEF Ot L03.116 CELLULITIS OF LEFT LOWER LIMB 12/30/2019 DEDRA, MARQUIS R AOC OPERATIONS INTELLIGENCE CHIEF Ot L97.122 NON-PRESSURE CHRONIC ULCER OF LEFT THIGH 12/30/2019 DEDRA, MARQUIS R AOC OPERATIONS INTELLIGENCE CHIEF Ot Z89.512 ACQUIRED ABSENCE OF LEFT LEG BELOW KNEE 12/30/2019 DEDRA, MARQUIS R AOC OPERATIONS INTELLIGENCE CHIEF Ot B36.9 SUPERFICIAL MYCOSIS, UNSPECIFIED 12/30/2019 DEDRA, MARQUIS R AOC OPERATIONS INTELLIGENCE CHIEF Ot L03.116 CELLULITIS OF LEFT LOWER LIMB 12/30/2019 DEDRA, MARQUIS R AOC OPERATIONS INTELLIGENCE CHIEF Ot L97.121 NON-PRS CHRONIC ULCER OF LEFT THIGH LIMI 12/30/2019 DEDRA, MARQUIS R AOC OPERATIONS INTELLIGENCE CHIEF Ot L97.122 NON-PRESSURE CHRONIC ULCER OF LEFT THIGH 12/30/2019 DEDRA, MARQUIS R AOC OPERATIONS INTELLIGENCE CHIEF Ot Z89.512 ACQUIRED ABSENCE OF LEFT LEG BELOW KNEE 12/30/2019 DEDRA, MARQUIS R AOC OPERATIONS INTELLIGENCE CHIEF Ot B36.9 SUPERFICIAL MYCOSIS, UNSPECIFIED 12/30/2019 DEDRA, MARQUIS R AOC OPERATIONS INTELLIGENCE CHIEF Ot L03.116 CELLULITIS OF LEFT LOWER LIMB 12/30/2019 DEDRA, MARQUIS R AOC OPERATIONS INTELLIGENCE CHIEF Ot L97.121 NON-PRS CHRONIC ULCER OF LEFT THIGH LIMI 12/30/2019 DEDRA, MARQUIS R AOC OPERATIONS INTELLIGENCE CHIEF Ot L97.122 NON-PRESSURE CHRONIC ULCER OF LEFT THIGH 12/30/2019 DEDRA, MARQUIS R AOC OPERATIONS INTELLIGENCE CHIEF Ot Z89.512 ACQUIRED ABSENCE OF LEFT LEG BELOW KNEE 12/30/2019 DEDRA, MARQUIS R [employer] OPERATIONS INTELLIGENCE CHIEF Ot B36.9 SUPERFICIAL MYCOSIS, UNSPECIFIED 12/30/2019 DEDRA, MARQUIS R A[employer] OPERATIONS INTELLIGENCE CHIEF Ot L03.116 CELLULITIS OF LEFT LOWER LIMB 12/30/2019 DEDRA, MARQUIS R [employer] OPERATIONS INTELLIGENCE CHIEF Ot L97.121 NON-PRS CHRONIC ULCER OF LEFT THIGH LIMI 12/30/2019 DEDRA, MARQUIS R [employer] OPERATIONS INTELLIGENCE CHIEF Ot L97.122 NON-PRESSURE CHRONIC ULCER OF LEFT THIGH 12/30/2019 DEDRA, MARQUIS R A[employer] OPERATIONS INTELLIGENCE CHIEF Ot Z89.512 ACQUIRED ABSENCE OF LEFT LEG BELOW KNEE 12/30/2019 DEDRA, MARQUIS R A[employer] OPERATIONS INTELLIGENCE CHIEF Ot B36.9 SUPERFICIAL MYCOSIS, UNSPECIFIED 12/30/2019 DEDRA, MARQUIS R A[employer] OPERATIONS INTELLIGENCE CHIEF Ot L03.116 CELLULITIS OF LEFT LOWER LIMB 12/30/2019 DEDRA MARQUIS R [employer] OPERATIONS INTELLIGENCE CHIEF Ot L97.121 NON-PRS CHRONIC ULCER OF LEFT THIGH LIMI 12/30/2019 DEDRA MARQUIS R A[employer] OPERATIONS INTELLIGENCE CHIEF Ot Z89.512 ACQUIRED ABSENCE OF LEFT LEG BELOW KNEE 12/30/2019 DEDRA MARQUIS R AOC OPERATIONS INTELLIGENCE CHIEF Ot B36.9 SUPERFICIAL MYCOSIS, UNSPECIFIED 12/30/2019 DEDRA, MARQUIS R A[employer] OPERATIONS INTELLIGENCE CHIEF Ot L03.116 CELLULITIS OF LEFT LOWER LIMB 12/30/2019 DEDRA, MARQUIS R A[employer] OPERATIONS INTELLIGENCE CHIEF Ot L97.121 NON-PRS CHRONIC ULCER OF LEFT THIGH LIMI 12/30/2019 DEDRA MARQIUS R A[employer] OPERATIONS INTELLIGENCE CHIEF Ot Z89.512 ACQUIRED ABSENCE OF LEFT LEG BELOW KNEE 12/30/2019 DEDRA MARQUIS R A[employer] OPERATIONS INTELLIGENCE CHIEF Ot B36.9 SUPERFICIAL MYCOSIS, UNSPECIFIED 12/30/2019 DEDRA, MARQUIS R A[employer] OPERATIONS INTELLIGENCE CHIEF Ot L03.116 CELLULITIS OF LEFT LOWER LIMB 12/30/2019 DEDRA, MARQUIS R [employer] OPERATIONS INTELLIGENCE CHIEF Ot L97.122 NON-PRESSURE CHRONIC ULCER OF LEFT THIGH 12/30/2019 DEDRA MARQUIS R [employer] OPERATIONS INTELLIGENCE CHIEF Ot Z89.512 ACQUIRED ABSENCE OF LEFT LEG BELOW KNEE 12/30/2019 DEDRA MARQUIS R [employer] OPERATIONS INTELLIGENCE CHIEF Ot Z51.81 ENCOUNTER FOR THERAPEUTIC DRUG LEVEL MON 12/30/2019 DEDRA MARQUIS R [employer]PER[employer] INTELLIGENCE CHIEF Ot 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 12/30/2019 KIANNA PERES MD, Ot E11.622 TYPE 2 DIABETES MELLITUS WITH OTHER SKIN 12/30/2019 KIANNA PERES MD, Ot I70.232 ATHSCL KAKE ARTERIES OF RIGHT LEG W UL 12/30/2019 KIANNA PERES MD, Ot L97.212 NON-PRESSURE CHRONIC ULCER OF RIGHT CALF 12/30/2019 KIANNA PERES MD, Ot 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 RIGHT LEG BELOW KNEE 12/30/2019 KIANNA PERES MD, Ot Z89.512 ACQUIRED ABSENCE OF LEFT LEG BELOW KNEE 12/30/2019 KIANNA PERES MD, Ot E11.622 TYPE 2 DIABETES MELLITUS WITH OTHER SKIN 12/30/2019 KIANNA PERES MD, Ot L97.212 NON-PRESSURE CHRONIC ULCER OF RIGHT CALF 12/30/2019 KIANNA PERES MD, Ot 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 RIGHT LEG BELOW KNEE 12/30/2019 KIANNA PERES MD, Ot Z89.512 ACQUIRED ABSENCE OF LEFT LEG BELOW KNEE 12/30/2019 KIANNA PERES MD, Ot E11.622 TYPE 2 DIABETES MELLITUS WITH OTHER SKIN 12/30/2019 KIANNA PERES MD, Ot L97.212 NON-PRESSURE CHRONIC ULCER OF RIGHT CALF 12/30/2019 KIANNA PERES MD, Ot 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 RIGHT LEG BELOW KNEE 12/30/2019 KIANNA PERES MD, Ot Z89.512 ACQUIRED ABSENCE OF LEFT LEG BELOW KNEE 12/30/2019 KIANNA PERES MD, Ot E11.622 TYPE 2 DIABETES MELLITUS WITH OTHER SKIN 12/30/2019 KIANNA PERES MD, Ot L97.212 NON-PRESSURE CHRONIC ULCER OF RIGHT CALF 12/30/2019 KIANNA PERES MD, Ot 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 RIGHT LEG BELOW KNEE 12/30/2019 KIANNA PERES MD Ot Z89.512 ACQUIRED ABSENCE OF LEFT LEG BELOW KNEE 12/30/2019 KIANNA PERES MD, Ot E11.622 TYPE 2 DIABETES MELLITUS WITH OTHER SKIN 12/30/2019 KIANNA PERES MD, Ot L97.212 NON-PRESSURE CHRONIC ULCER OF RIGHT CALF 12/30/2019 KIANNA PERES MD Ot 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 RIGHT LEG BELOW KNEE 12/30/2019 KIANNA PERES MD Ot Z89.512 ACQUIRED ABSENCE OF LEFT LEG BELOW KNEE 12/30/2019 KIANNA PERES MD, Ot E11.622 TYPE 2 DIABETES MELLITUS WITH OTHER SKIN 12/30/2019 KIANNA PERES MD, Ot L97.212 NON-PRESSURE CHRONIC ULCER OF RIGHT CALF 12/30/2019 KIANNA PERES MD Ot 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 RIGHT LEG BELOW KNEE 12/30/2019 KIANNA PERES MD Ot Z89.512 ACQUIRED ABSENCE OF LEFT LEG BELOW KNEE 12/30/2019 GALO GRIFFIN DO Ot C18. 9 MALIGNANT NEOPLASM OF COLON, UNSPECIFIED 12/30/2019 GALO GRIFFIN DO Ot N32. 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 9 MALIGNANT NEOPLASM OF COLON, UNSPECIFIED 12/31/2019 [facility] Ot N40. 0 BENIGN PROSTATIC HYPERPLASIA WITHOUT LOW 12/31/2019 [facility] Ot Z01.818 ENCOUNTER FOR OTHER PREPROCEDURAL EXAMIN Procedures Code Description Performed By Per formed On [id number] EX CISION OF LEFT LOWER LEG SKIN, EXTERNA 11/07/2017 [id number] EX CISION OF SIGMOID COLON, OPEN APPROACH 08/28/2019 [id number] IN SERTION OF OTHER DEVICE INTO URETER, O 08/28/2019 [id number] RE PAIR LEFT URETER, OPEN APPROACH 08/28/2019 [id number] RE LEASE SMALL INTESTINE, OPEN APPROACH 09/05/[id number] DILLARD OF PERITONEAL CAVITY, OPEN APPR 09/05/2019 [id number] RE SPIRATORY VENTILATION, 24- 96 CONSECUTI 09/05/2019 [...] Bacteria identification in isolate by anaerobe culture [id number] NRG Gram stain microscopy - 11/08/17 17:30 GRAM STAIN RESULT OBSERVED NRG Bacteria identification in wound by cult ure - 11/08/17 17:30 Bacteria identification in wound by culture SEE RE PORT NRG FREE TEXT EXTERNAL SEE FUNGUS CULTURE REPORT NRG QUANTITY OF GROWTH . [facility] FREE TEXT ENTRY 2 ON THIS ORGAISM. [facility] Bacterial susceptibility panel - 8 17:30 Gentamicin [...] ed for a preliminary negative culture report. [facility] Bacterial susceptibility panel - 8 17:30 Gentamicin [...] Bacteria identification in isolate by anaerobe culture [facility] Gram stain microscopy - 11/22/17 14:38 GRAM STAIN RESULT NO BACTERIA NR Bacteria identification in wound by cult ure - 11/22/17 14:38 Bacteria identification in wound by culture [id number] NRG FREE TEXT EXTERNAL FROM [facility]IO BROTH ONLY NRG QUANTITY OF GROWTH Isolated NRG FREE TEXT ENTRY 2 SENSITIVITIES REPORTED AT 1240, 4-12-18 NR Bacterial susceptibility panel - 8 14:38 Gentamicin [...] test by minimum inhibitory co ncentration 1 G Fungus culture - 11/22/17 14:38 Fungus culture NG G Whole blood basic metabolic panel - 11/18 03/06 10:57 Serum or plasma sodium measurement (moles/volume) 134 mmol/L 135-145 Serum or plasma potassium measurement (moles/volume) 4.7 mmol/L 3.6-5.0 Serum or plasma chloride measurement (moles/volume) 98 mmol/L 98-107 Carbon dioxide 29 mmol/L 21-32 Serum or plasma anion gap determination (moles/volume) 7 mmol/L 5-14 Serum or plasma urea nitrogen measurement (mass/volume ) 13 mg/dL 18 Serum or plasma creatinine measurement (mass/volume) 1.03 [...] 98 mmol/L 98-107 Carbon dioxide 27 mmol/L 21-32 [...] 96 mmol/L 98-107 Carbon dioxide 28 mmol/L - Serum or plasma anion gap [...] 99 mmol/L 98-107 Carbon dioxide 25 mmol/L -32 Serum or plasma anion gap [...] culture NOANA NRG Gram stain microscopy - 01/01/18 09:39 GRAM STAIN RESULT NO WBC'S OR BACTERIA OBSERVED NRG Bacteria identification in wound by cult ure - 01/01/18 09:39 Bacteria identification in wound by culture [id number] NRG FREE TEXT EXTERNAL SENSITIVITY REPORTED AT 07, NRG QUANTITY OF GROWTH Moderate Growth NRG Bacterial susceptibility panel - 8 09:39 Oxacillin [...] NRG FTX;REPORTABLE UNLESS REQUESTED NRG Fungus culture [id number] NRG IDENTIFICATION TO FOLLOW NO FURTHER STUDIES [...] 10:30 Bacteria identification in wound by culture [id number] NRG FREE TEXT EXTERNAL SUSCEPTIBILITY REPORTED [...] 10:07 Bacteria identification in wound by culture [id number] NRG FREE TEXT EXTERNAL NO SUSCEPTIBLILTY [...] 7-25 CREATININE 0.73 mg/dL 0.70-1.18 eGFR NON-AFR. [place] 92 mL/min/1.73m2 > OR = 60 eGFR [...] 0.0-0.1 Blood type T Indirect antibody screen [facility] - 08/18/19 14:30 ABO+Rh group AP NRG Blood group antibody screen NEGATIVE NR G Capillary blood glucose measurement by g lucometer (mass/volume) - 08/28/19 10:17 Capillary blood glucose measurement by glucometer (mas s/volume) 109 mg/dL 70-110 Blood type T Indirect antibody screen [facility] - 08/28/19 10:25 WRISTBAND NUMBER [id number] NRG ABO+Rh group AP NRG Blood group [...] glucose measurement by g lucometer (mass/volume) - 01/12/20 20:03 Capillary blood glucose measurement by glucometer [...] [facility] - 09/05/19 14:22 WRISTBAND NUMBER [id number] NRG ABO+Rh group AP NRG Blood group antibody screen NEGATIVE NR G Bacteria identification in isolate by an aerobe culture - 09/05/19 15:00 Bacteria identification in isolate by anaerobe culture NOANA NRG Gram stain microscopy - 09/05/19 15:00 Gram stain microscopy No bacteria seen NRG Bacteria identification in wound by cult ure - 09/05/19 15:00 Bacteria identification in wound by culture [id number] NRG FREE TEXT EXTERNAL SUSCEPTIBILITY REPORTED 09-08-191724 [...] EXTERNAL PRELIM RAPID ID TEST AT V [facility] 09/08 NRG QUANTITY OF GROWTH . NRG [...] 109 mmol/L 98-107 Carbon dioxide 29 mmol/L -32 [...] 7-25 CREATININE 0.74 mg/dL 0.70-1.18 eGFR NON-AFR. [place] 92 mL/min/1.73m2 > OR = 60 eGFR [...] urinalysis with reflex to culture NO NRG CBC w/MANUAL DIFF - 12/04/19 09:41 WHITE BLOOD CELL COUNT 6.8 Thousand/uL 3 .8-10.8 RED BLOOD CELL COUNT 4.20 Million/uL 4.2 0-5.80 HEMOGLOBIN 10.8 g/dL 13.2-17.1 HEMATOCRIT 34.8 % 38.5-50.0 MCV 82.9 fL 80.0-100.0 MCH 25.7 pg 27.0-33.0 MCHC 31.0 g/dL 32.0-36.0 RDW 16.3 % 11.0-15.0 PLATELET COUNT 429 Thousand/uL 140-400 MPV 8.4 fL 7.5-12.5 ABSOLUTE NEUTROPHILS 4155 cells/uL 1500- 7800 ABSOLUTE MONOCYTES 252 cells/uL 200-950 ABSOLUTE EOSINOPHILS 442 cells/uL 15-500 ABSOLUTE BASOPHILS 61 cells/uL 0-200 NEUTROPHILS 61.1 % NRG LYMPHOCYTES 25.0 % NRG MONOCYTES 3.7 % NRG EOSINOPHILS 6.5 % NRG BASOPHILS 0.9 % NRG ABSOLUTE BAND NEUTROPHILS 190 cells/uL 0 -750 ABSOLUTE LYMPHOCYTES 1700 cells/uL 850-3 900 BAND NEUTROPHILS 2.8 % NRG PLATELET ESTIMATION INCREASED ADEQUATE CBC MORPHOLOGY NORMAL Complete urinalysis with reflex to cultu re - 12/18/19 23:55 Urine color determination YELLOW NRG Urine clarity determination CLEAR NR G Urine pH measurement by test strip 6.5 5-9 Specific gravity of urine by test strip 1.010 1.016-1.022 Urine protein assay by test strip, semi-quantitative NEGATIVE NEGATIVE Urine glucose detection by automated test strip 1+ NEGATIVE Erythrocytes detection in urine sediment by [...] leukocyte count by microscopy (number/high power field) NONE NRG Bacteria detection in urine sediment by light microsco py NEGATIVE NRG Squamous epithelial cells detection in u rine sediment by light microscopy RARE NRG Crystals detection in urine sediment by light microsco py NONE NRG Casts detection in urine sediment by light microscopy NONE NRG Mucus detection in urine sediment by light microscopy SMALL NRG Complete urinalysis with reflex to culture NO NRG Coronavirus SARS-CoV-2 SO 2019 - 0 13:07 Coronavirus Ab [Units/volume] in Serum Negative Negative Methicillin resistant Staphylococcus aur eus (MRSA) screening culture - 12/29/19 13:20 Methicillin resistant Staphylococcus aureus (MRSA) scr eening culture NEG NRG Capillary blood glucose measurement by g lucometer (mass/volume) - 01/02/20 11:06 Capillary blood glucose measurement by glucometer (mas s/volume) 122 mg/dL 70-110 Encounters ACCT No. Visit Date/Time Discharge Status Pt. Type Provider Facility Loc./Unit Complaint [id number] 10/16/2019 10:40:00 10/16/2019 23:59: 59 CLS Outpatient KIANNA BARAJAS APRN [facility] [id number] 12/04/2019 09:40:00 Document Registration [id number] 10/16/2019 10:40:00 Document Registration [id number] 07/30/2019 14:40:00 Document Registration [id number] 07/14/2019 10:00:00 Document Registration [id number] 04/03/2019 10:20:00 Document Registration [id number] 03/28/2019 09:00:00 Document Registration [id number] 12/25/2018 10:20:00 Document Registration [id number] 10/30/2017 10:40:00 Document Registration [id number] 12/12/2019 14:39:00 00:01:00 DIS Outpatient DO DOOLEY, SCOTT law [facility] ONC [id number] 12/29/2019 12:33:00 16:18:00 DIS Outpatient GALO GRIFFIN DO [facility] PREOP COLON CANCER [id number] 12/18/2019 22:43:00 00:30:00 DIS Emergency BRET ARREDONDO MD [facility] ER UNABLE TO URINATE,BUDDY TER PROBLEMS [id number] 11/21/2019 00:59:00 02:09:00 DIS Emergency BRET ARREDONDO MD [facility] ER CATHETER TAKEN OUT IN A .M.,CAN'T URINATE [id number] 11/17/2019 11:45:00 23:59:59 CLS Preadmit SCOTT LEI MD [facility] RAD COLON CA [id number] 11/17/2019 10:54:00 23:59:59 CLS Outpatient SCOTT LEI MD, V [facility] 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 [id number] 11/13/2019 08:00:00 23:59:59 CLS Preadmit GALO GRIFFIN DO [facility] SDC COLON CANCER [id number] 11/12/2019 15:19:00 18:06:00 DIS Emergency BRET ARREDONDO MD [facility] ER RENAL FAILURE [id number] 11/11/2019 05:41:00 12:56:00 DIS Outpatient GALO GRIFFIN DO [facility] PREOP COLON CANCER [id number] 11/07/2019 09:57:00 23:59:59 CLS Outpatient HONG DUKES MD [facility] RAD LT URETERAL LACERATION [id number] 10/28/2019 13:40:00 23:59:59 CLS Preadmit GALO GRIFFIN DO [facility] ENDO HX OF COLON CA [id number] 10/21/2019 05:38:00 23:59:59 CLS Outpatient GALO GRIFFIN DO [facility] PREOP COLONOSCOPY [id number] 10/17/2019 10:52:00 23:59:59 CLS Outpatient HONG DUKES MD [facility] RAD LT URETERAL LACERATION [id number] 08/28/2019 09:45:00 17:10:00 DIS Inpatient GALO GRIFFIN DO [facility] 4TH COLON CANCER [id number] 08/18/2019 14:04:00 14:38:00 DIS Outpatient GALO GRIFFIN DO [facility] PREOP COLON CANCER [id number] 08/11/2019 14:44:00 23:59:59 CLS Outpatient GALO GRIFFIN DO [facility] RAD COLON CA [id number] 02/12/2019 09:35:00 23:59:59 CLS Outpatient KIANNA PERES MD [facility] WOUNDCARE [id number] 02/05/2019 12:43:00 23:59:59 CLS Outpatient KIANNA PERES MD [facility] WOUNDCARE [id number] 01/29/2019 09:38:00 23:59:59 CLS Outpatient KIANNA PERES MD [facility] WOUNDCARE [id number] 01/22/2019 09:26:00 23:59:59 CLS Outpatient KIANNA PERES MD [facility] WOUNDCARE [id number] 01/15/2019 09:44:00 23:59:59 CLS Outpatient KIANNA PERES MD [facility] WOUNDCARE [id number] 2019 08:40:00 23:59:59 CLS Outpatient KIANNA PERES MD [facility] WOUNDCARE [id number] 03/05/2018 00:09:00 23:59:59 CLS Preadmit MARQUIS COLMENARES APRN [facility] LAB T37.0X5A [id number] 12/25/2017 10:53:00 00:01:00 DIS Outpatient MARQUIS COLMENARES APRN [facility] LAB T37.0X5A [id number] 01/22/2018 08:44:00 23:59:59 CLS Outpatient MARQUIS COLMENARES APRN [facility] WOUNDCARE [id number] 01/15/2018 08:58:00 23:59:59 CLS Outpatient MARQUIS COLMENARES APRN [facility] WOUND[facility] [id number] 01/08/2018 08:41:00 018 23:59:59 CLS Outpatient DEDRA, MARQUIS R [employer] [facility] WOUNDC[facility] [id number] 01/01/2018 08:38:00 018 23:59:59 CLS Outpatient DEDRA, MARQUIS R [employer]IE[employer] [facility] [id number] 12/25/2017 10:09:00 018 23:59:59 CLS Outpatient DEDRA, MARQUIS R [employer]IE[employer] [facility]OUND[facility] [id number] 12/17/2017 12:40:00 018 23:59:59 CLS Outpatient DEDRA, MARQUIS R [employer] [facility] [id number] 12/11/2017 09:27:00 018 23:59:59 CLS Outpatient DEDRA, MARQUIS R [employer] [facility] [id number] 12/04/2017 09:53:00 018 23:59:59 CLS Outpatient DEDRA, MARQUIS R [employer] [facility] [id number] 11/27/2017 10:01:00 018 23:59:59 CLS Outpatient DEDRA, MARQUIS R [employer] [facility] [id number] 11/22/2017 14:01:00 018 23:59:59 CLS Outpatient DEDRA, MARQUIS R [employer] [facility] [id number] 11/13/2017 10:49:00 018 23:59:59 CLS Outpatient DEDRA, MARQUIS R [employer] [facility] WOUND[facility] [id number] 11/06/2017 13:00:00 018 16:21:00 DIS Inpatient BERNARD PAYTON DO [facility] 4TH BILAT LE CELLUL ITIS [id number] 11/06/2017 08:54:00 018 23:59:59 CLS Outpatient DEDRA, MARQUIS R [employer] [facility] WOUNDC[facility] [id number] 01/01/2020 12:00:00 P EN PreadGALO Rojas DO [facility] COLON CANCER
[2020-01-02] MEDS ORDERED: PHENYLEPHRINE 100 MCG/ML 10 ML (ANESTHESIA) SYR ONE ×2 (12:07→13:26)
[2020-01-02] MEDS ORDERED: cefTRIAXone FOR IV USE 1,000 MG in WATER (STERILE) FOR INJECTION 10 ML IV ONE (12:15)
--- NOTE | 2020-01-02 12:30 | Progress Note-Pre Operative ---
Pre-Operative Progress Note H&P Reviewed The H&P was reviewed, patient examined and no changes noted. Date Seen by Provider: January 02, 2020 Time Seen by Provider: 11:45 Date H&P Reviewed: January 02, 2020 Time H&P Reviewed: 11:45 Pre-Operative Diagnosis: BPH AND RETENTION HONG DUKES MD January 02, 2020 12:30
--- NOTE | 2020-01-02 12:34 | Progress Note-Post Operative ---
Post-Operative Progess Note Surgeon (s)/Recruiting Team Lead (s) Surgeon HONG DUKES MD Recruiting Team Lead: NONE Pre-Operative Diagnosis BPH AND RETENTION Post-Operative Diagnosis SAME Procedure & Operative Findings Date of Procedure 01/02/20 Procedure Performed/Findings TURP Anesthesia Type GENERAL Estimated Blood Loss Estimated blood loss (mL): 150cc Specimens/Packing Specimens Removed PROSTATE CHIPS Packing: NONE HONG DUKES MD January 02, 2020 12:34
[2020-01-02] MEDS ORDERED: BELLADONNA ALK/OPIUM (B & O) 30 MG SUPP PR PRN (12:45)
[2020-01-02] MEDS ORDERED: HYDROcodone/APAP 10 MG/325 MG (LORTAB) TAB PO PRN (12:45)
[2020-01-02] MEDS ORDERED: MILK OF MAGNESIA 400 MG/5 ML 30 ML UDC PO PRN (12:45)
--- NOTE | 2020-01-02 13:47 | Discharge Inst-Simple/Standard ---
Discharge Inst-Standard Patient Instructions/Follow Up Plan of Care/Instructions/FU: 2 weeks Lily Activity as Tolerated: No Discharge Diet: Regular Diet Other Inst to Patient Follow up Appt: Make appointment for 2 week. Instructions: No lifting greater than 10 pounds. No strenuous activity. May shower in 24 hours, no tub bath or soaking. Use incentive spirometer at home as directed. No Smoking Skin/Wound Care: You have special glue over your incision that will fall off on it's own. Ice pack on 15 min and off 30 min and repeat to reduce swelling and discomfort. Symptoms to Report: Appetite Changes, Extremity Discoloration, Numbness/Tingling, Swelling Increased, Bleeding Excessive, Eyesight Changes, Pain Increased, Urine Color Change, Constipation(Persistent), Fever over 101 degree F, Pain/Pressure in chest, Urinating Difficulty, Cough Up/Vomit Blood, Heart Beat Irreg/Pounding, Pain/Pressure in jaw, Vaginal Bleeding Increase, Cramps in feet or legs, Lightheadedness, Pain/Pressure in shoulder, Diarrhea(Persistent), Memory Changes Suddenly, Questions/Concerns, Weight gain consecutive days, Dizziness/Fainting, Nausea/Vomiting, Shortness of Breath, Weight gain over 2 pounds If questions or concerns contact your physician Or seek help at emergency department. GALO GRIFFIN DO January 02, 2020 13:47
[2020-01-02] MEDS ORDERED: ROCURONIUM 10 MG/ML 5 ML SYRINGE IV ONE (13:55)
[2020-01-02] MEDS ORDERED: ONDANSETRON 4 MG/2 ML (SDV) Z0FRAN IVP PRN (14:15)
[2020-01-02] MEDS ORDERED: morphine INJ 10 MG/ML 1ML (SYR OR VIAL) IVP ONE (14:15)
[2020-01-02] MEDS ORDERED: MEPERIDINE (DEMEROL) INJ 50 MG/ML IVP ONE (14:15)
[2020-01-02] MEDS: LACTATED RINGERS 1,000 ML IV SCH ×3 (14:52→20:29)
--- NOTE | 2020-01-02 15:06 | Diagnostic Imaging Report ---
HISTORY: Postoperative Port-A-Cath placement. COMPARISON: 09/09/2019. TECHNIQUE: Single frontal view of the chest. FINDINGS: The right-sided Port-A-Cath tip projects over the SVC. Lung volumes are normal. There are linear opacities in the left lung which may represent atelectasis. Overall aeration appears improved. No pleural effusion or pneumothorax is seen. The cardiac silhouette is normal in size. IMPRESSION: 1. The right Port-A-Cath projects over the mid SVC. 2. Aeration appears improved compared to the prior exam. Dictated by: Dictated on workstation # [id number]
--- NOTE | 2020-01-02 15:20 | NUR ---
GEE QUIGLEY admitted to room 414-1, with an admitting diagnosis of POST TURP AND POST GROSHONG PORT PLACEMENT, 01/02/20 from POST OP via BED, accompanied by .GEE QUIGLEY introduced to surroundings, call light, bed controls, phone, TV, temperature control, lights, meal times, smoking policy, visitor policy, side rail policy, bathrooms and showers. Patient Rights given to patient in the handbook. GEE QUIGLEY verbalizes understanding that [facility] is not responsible for the loss or damage to any personal effects or valuables that are kept in the patients posession during their hospitalization. GEE QUIGLEY verbalizes understanding of Interdisciplinary Patient Education. Patient and/or family were informed about the Rapid Response Team and its purpose. PT CAME TO FLOOR WITH IVFS INFUSING AND CBI GOING --
--- NOTE | 2020-01-02 16:51 | Diagnostic Imaging Report ---
INDICATION: Port-A-Cath placement. EXAMINATION: Intraoperative fluoroscopy was used during Port-A-Cath placement in surgery per Dr. Bautista. FINDINGS: Port is visualized over the right chest wall with catheter entering the right internal jugular vein with catheter tip overlying the distal SVC. 23 seconds of fluoroscopy time was used in surgery. IMPRESSION: Port-A-Cath placement, as above, intraoperative fluoroscopy was used for placement in surgery. Dictated by: Dictated on workstation # [id number]
--- NOTE | 2020-01-02 18:59 | OPERATIVE REPORT ---
DATE OF SERVICE: 01/02/2020 PREOPERATIVE DIAGNOSIS: Benign prostatic hypertrophy with urinary retention. POSTOPERATIVE DIAGNOSIS: Benign prostatic hypertrophy with urinary retention. OPERATION PERFORMED: Transurethral resection of the prostate. SURGEON: Hong Dukes MD ANESTHESIA: General. COMPLICATIONS: None. DESCRIPTION OF PROCEDURE: Under satisfactory general anesthesia and after Dr. Bautista performed the port insertion, the patient was placed in lithotomy position, genitalia were prepped and draped in the usual sterile fashion. Urethra was dilated with Lety sound to #30 [place] easily to accommodate a 27-[place] Soluto resectoscope. Again, visualized the enlarged lateral lobe meeting in the midline causing bladder neck obstruction. Resection was started first on the right lobe from the 12 to the 6 o'clock position and then the right lobe. The apical tissue were cleaned. The capsule was visualized in many points and resection was adequate. Hemostasis is satisfactory. Bleeders were cauterized as the resection was proceeding. Prostatic chips were evacuated. Cystoscopy confirmed intact ureteric orifices, veru and sphincter with good reflex. Resectoscope was then removed and a 22-[place] 3-way 30 mL balloon catheter was inserted. The balloon inflated to 40 mL, placed on traction to CBI, the return of which was pinkish. Estimated blood loss was 150 mL, none of which was replaced. The patient tolerated the procedure and anesthesia well and was sent to recovery room in stable condition. Job ID: [id number] DocumentID: [id number] Dictated Date: 01/02/2020 14:18:40 Comic Writer Date: 01/02/2020 18:58:45 Dictated By: HONG DUKES MD
[2020-01-02] MEDS: DOCUSATE SODIUM 100 MG (COLACE) CAP PO SCH (20:29)
--- NOTE | 2020-01-02 23:16 | Progress Note-Post Operative ---
Post-Operative Progess Note Surgeon (s)/Family Partner (s) Surgeon GALO GRIFFIN DO Family Partner: NONE Pre-Operative Diagnosis colon cancer Post-Operative Diagnosis same Procedure & Operative Findings Date of Procedure 01/02/20 Procedure Performed/Findings PROCEDURE: Right internal jugular port placement using ultrasound guidance. COMPLICATIONS: None. INDICATIONS: The patient is a 74 year old male with colon cancer. Patient understands the risks and benefits of port placement and wished to proceed with the procedure. Consent was signed on the chart. PROCEDURE: The patient was taken to the operating suite, was prepped and draped in the sterile fashion. A surgical pause was performed. Ultrasound was used to locate the internal jugular vein. Once located anesthetic was infiltrated above it. Using micro-access kit, the right internal vein was accessed. Dark nonpulsatile blood was withdrawn. The wire was inserted. Fluoroscopy assured proper placement. The needle was removed. The micro-access dilator was advanced over the wire and the wire was removed. The regular wire was inserted and fluoroscopy assured proper placement. The wire was then secured. Local anesthetic was used to anesthetize from the neck for tunneling down to the right chest and for pocket creation. A 15 blade scalpel was used to make an incision over the right chest. Cautery was used to dissect down to the pectoral fascia. A pocket was created with blunt dissection. The dilator sheath was then advanced over the wire under fluoroscopy and the dilator and wire were removed. The Gro[place]ong catheter was inserted through the sheath and the sheath was then removed. The Gro[place] wire was removed. The catheter was then tunneled to the right chest pocket. Fluoroscopy was used to cut to length and this was then attached to the port which was then placed within the pocket. The port was then accessed without difficulty. It was then flushed with saline and then heparin. The subcutaneous tissues were then reapproximated using 3-0 Vicryl. The areas were then washed and dried. Skin Affix was placed over incision. The insertion point of the neck Skin Affix was placed over the incision. The patient tolerated the procedure well without complication and was taken to recovery room in stable condition. Chest x-ray is pending. Anesthesia Type general Estimated Blood Loss Estimated blood loss (mL): min Specimens/Packing Specimens Removed na Packing: NONE GALO GRIFFIN DO January 02, 2020 23:16
[2020-01-03] VITALS (7 sets, daily range): BP systolic 109–130; BP diastolic 55–75
[2020-01-03] MEDS: LACTATED RINGERS 1,000 ML IV SCH ×3 (02:42→12:39)
[2020-01-03] MEDS: DOCUSATE SODIUM 100 MG (COLACE) CAP PO SCH ×2 (09:33→20:07)
--- NOTE | 2020-01-03 10:43 | Anesthesia-General Post-Op ---
General Patient Condition Mental Status/LOC: Same as Preop Cardiovascular: Satisfactory Nausea/Vomiting: Absent Respiratory: Satisfactory Pain: Controlled Complications: Absent Post Op Complications Complications None Follow Up Care/Instructions Patient Instructions None needed. Anesthesia/Patient Condition Patient Condition Patient is doing well, no complaints, stable vital signs, no apparent adverse anesthesia problems. No complications reported per nursing. LM MCKINNON CRNA January 03, 2020 10:43
--- NOTE | 2020-01-03 10:44 | Progress Note - Urology ---
Progress Note-Urology Progress Notes/Assess & Plan Progress/Assessment & Plan DOING VERY WELL. URINE CRYSTAL CLEAR. PLAN PER ORDERS Final Diagnosis BPH AND URINE RETENTION HONG DUKES MD January 03, 2020 10:44
--- NOTE | 2020-01-03 11:08 | NUR ---
DR DUKES ORDERED TO TAKE OUT CODY AND CBI. URINE IN COLLECTION BAG IS CLEAR. 27 ML ASPIRATED FROM BALLOON. PT REPORTED NO PAIN WHEN CODY WAS REMOVED. PT MADE AWARE TO USE URINAL FOR VOIDS AND TO USE CALL LIGHT AFTER EACH VOID.
--- NOTE | 2020-01-03 11:10 | NUR ---
DR GRIFFIN LET THIS RN KNOW THAT HE DID NOT NEED TO SEE PT PRIOR TO DISCHARGE.
[2020-01-03] MEDS ORDERED: LEVOFLOXACIN 500 MG/100 ML IV 100 ML IV NR (12:45)
--- NOTE | 2020-01-03 14:12 | NUR ---
13[address] DR DUKES NOTIFIED THAT PT WAS VOIDING SMALL AMOUNTS OF RED URINE AND HE WAS NOT ABLE TO EMPTY BLADDER. BLADDER SCAN SHOWED OVER [address] DUKES ORDERED TO MAKE PT AN INPT, TO STRAIGHT CATH IF BLADDER SCAN IS OVER 350 ML, AND TO ALSO START URECHOLINE 25 MG AC/HS. THIS RN USED STERILE TECHNIQUE WITH 15 FR CODY AND NETTED 600 ML OF BRIGHT RED URINE. THERE WAS PRESSURE DURING INSERTION PRIOR TO CODY ENTERING BLADDER. PT TOLERATED WELL AND IS NOW RESTING. THIS RN ATTEMPTED TO GET A HOLD OF HIS NIECE, RAZA, TO LET HER KNOW HE WOULD BE STAYING OVER TONIGHT. WILL ATTEMPT TO CALL HER AGAIN LATER. MESSAGE ALSO LEFT TO CALL THIS NURSE AND THE PHONE NUMBER.
--- OUTSIDE RECORDS SUMMARY | 2020-01-03 14:59 | XMS REPORT | Continuity of Care Document ---
Author Organization Unknown Address Unknown Phone Unavailable Allergies Active Description Code Type Severity Reaction Onset Reported/Identified Relationship to Patient Clinical Status Yes No Known Drug Allergies [id number] Drug Allergy Unknown N/A 11/11/2019 Medications There is no data. Problems Date Dx Coded Attending Type Code Diagnosis Diagnosed By 11/07/2017 MARQUIS COLMENARES APRN Ot L03.116 CELLULITIS OF LEFT LOWER LIMB 11/07/2017 MARQUIS COLMENARES APRN Ot Z89.512 ACQUIRED ABSENCE OF LEFT LEG BELOW KNEE 11/09/2017 [facility] BERNARD VIDAL Ot E11.9 TYPE 2 DIABETES MELLITUS WITHOUT COMPLIC [facility] Ot E78.00 PURE HYPERCHOLESTEROLEMIA, UNSPECIFIED 11/09/2017 [facility] BERNARD VIDAL Ot I10 ESSENTIAL (PRIMARY) HYPERTENSION 11/09/2017 [facility] Ot L03.115 CELLULITIS OF RIGHT LOWER LIMB 11/09/2017 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 11/09/2017 [facility] TIL[facility] DO Ot 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 RIGHT LEG BELOW KNEE 11/09/2017 [facility] Urbina DO Ot Z89.512 ACQUIRED ABSENCE OF LEFT LEG BELOW KNEE 11/14/2017 MARQUIS COLMENARES APRN Ot B36.9 SUPERFICIAL MYCOSIS, UNSPECIFIED 11/14/2017 DEDRA, MARQUIS R FISH ICER Ot L03.116 CELLULITIS OF LEFT LOWER LIMB 11/14/2017 DEDRA MARQIUS R FISH ICER Ot L97.122 NON-PRESSURE CHRONIC ULCER OF LEFT THIGH 11/14/2017 MARQUIS COLMENARES R FISH ICER Ot Z89.512 ACQUIRED ABSENCE OF LEFT LEG BELOW KNEE 11/22/2017 [facility] MARQUIS R FISH ICER Ot L03.116 CELLULITIS OF LEFT LOWER LIMB 11/22/2017 MARQUIS COLMENARES R FISH ICER Ot Z89.512 ACQUIRED ABSENCE OF LEFT LEG BELOW KNEE 11/26/2017 MARQUIS COLMENARES R FISH ICER Ot B36.9 SUPERFICIAL MYCOSIS, UNSPECIFIED 11/26/2017 D[facility] MARQUIS R FISH ICER Ot L03.116 CELLULITIS OF LEFT LOWER LIMB 11/26/2017 D[facility]RA MARQUIS R FISH ICER Ot L97.122 NON-PRESSURE CHRONIC ULCER OF LEFT THIGH 11/26/2017 D[facility]RA MARQUIS R FISH ICER Ot Z89.512 ACQUIRED ABSENCE OF LEFT LEG BELOW KNEE 11/26/2017 MARQUIS COLMENARES R FISH ICER Ot B36.9 SUPERFICIAL MYCOSIS, UNSPECIFIED 11/26/2017 MARQUIS COLMENARES R FISH ICER Ot L03.116 CELLULITIS OF LEFT LOWER LIMB 11/26/2017 D[facility] MARQUIS R FISH ICER Ot L97.122 NON-PRESSURE CHRONIC ULCER OF LEFT THIGH 11/26/2017 MARQUIS COLMENARES R FISH ICER Ot Z89.512 ACQUIRED ABSENCE OF LEFT LEG BELOW KNEE 11/28/2017 MARQUIS COLMENARES R FISH ICER Ot B36.9 SUPERFICIAL MYCOSIS, UNSPECIFIED 11/28/2017 D[facility] MARQUIS R FISH ICER Ot L03.116 CELLULITIS OF LEFT LOWER LIMB 11/28/2017 D[facility]RA MARQUIS R FISH ICER Ot L97.122 NON-PRESSURE CHRONIC ULCER OF LEFT THIGH 11/28/2017 DEDRA MARQUIS R FISH ICER Ot Z89.512 ACQUIRED ABSENCE OF LEFT LEG BELOW KNEE 12/04/2017 D[facility]RA MARQUIS R FISH ICER Ot L03.116 CELLULITIS OF LEFT LOWER LIMB 12/04/2017 MARQUIS COLMENARES R FISH ICER Ot Z89.512 ACQUIRED ABSENCE OF LEFT LEG BELOW KNEE 12/05/2017 MARQUIS COLMENARES R FISH ICER Ot B36.9 SUPERFICIAL MYCOSIS, UNSPECIFIED 12/05/2017 MARQUIS COLMENARES R FISH ICER Ot L03.116 CELLULITIS OF LEFT LOWER LIMB 12/05/2017 DEDRA, MARQUIS R FISH ICER Ot L97.122 NON-PRESSURE CHRONIC ULCER OF LEFT THIGH 12/05/2017 D[facility]RA MARQUIS R FISH ICER Ot Z89.512 ACQUIRED ABSENCE OF LEFT LEG BELOW KNEE 12/12/2017 MARQUIS COLMENARES R FISH ICER Ot B36.9 SUPERFICIAL MYCOSIS, UNSPECIFIED 12/12/2017 D[facility] MARQUIS R FISH ICER Ot L03.116 CELLULITIS OF LEFT LOWER LIMB 12/12/2017 D[facility]RA MARQUIS R FISH ICER Ot L97.122 NON-PRESSURE CHRONIC ULCER OF LEFT THIGH 12/12/2017 MARQUIS COLMENARES R FISH ICER Ot Z89.512 ACQUIRED ABSENCE OF LEFT LEG BELOW KNEE 12/18/2017 MARQUIS COLMENARES R FISH ICER Ot B36.9 SUPERFICIAL MYCOSIS, UNSPECIFIED 12/18/2017 DEDRAMARQUIS R FISH ICER Ot L03.116 CELLULITIS OF LEFT LOWER LIMB 12/18/2017 DEDRA MARQUIS R FISH ICER Ot L97.121 NON-PRS CHRONIC ULCER OF LEFT THIGH LIMI 12/18/2017 D[facility] MARQUIS R FISH ICER Ot L97.122 NON-PRESSURE CHRONIC ULCER OF LEFT THIGH 12/18/2017 MARQUIS COLMENARES R FISH ICER Ot Z89.512 ACQUIRED ABSENCE OF LEFT LEG BELOW KNEE 12/18/2017 MARQUIS COLMENARES R FISH ICER Ot B36.9 SUPERFICIAL MYCOSIS, UNSPECIFIED 12/18/2017 MARQUIS COLMENARES R FISH ICER Ot L03.116 CELLULITIS OF LEFT LOWER LIMB 12/18/2017 DED[facility] MARQUIS R FISH ICER Ot L97.122 NON-PRESSURE CHRONIC ULCER OF LEFT THIGH 12/18/2017 MARQUIS COLMENARES R FISH ICER Ot Z89.512 ACQUIRED ABSENCE OF LEFT LEG BELOW KNEE 12/20/2017 MARQUIS COLMENARES R FISH ICER Ot B36.9 SUPERFICIAL MYCOSIS, UNSPECIFIED 12/20/2017 DED[facility] MARQUIS R FISH ICER Ot L03.116 CELLULITIS OF LEFT LOWER LIMB 12/20/2017 DEDRA MARQUIS R FISH ICER Ot L97.122 NON-PRESSURE CHRONIC ULCER OF LEFT THIGH 12/20/2017 MARQUIS COLMENARES R FISH ICER Ot Z89.512 ACQUIRED ABSENCE OF LEFT LEG BELOW KNEE 12/21/2017 MARQUIS COLMENARES R FISH ICER Ot B36.9 SUPERFICIAL MYCOSIS, UNSPECIFIED 12/21/2017 MARQUIS COLMENARES R FISH ICER Ot L03.116 CELLULITIS OF LEFT LOWER LIMB 12/21/2017 DEDRA, MARQUIS R FISH ICER Ot L97.121 NON-PRS CHRONIC ULCER OF LEFT THIGH LIMI 12/21/2017 D[facility] MARQUIS R FISH ICER Ot L97.122 NON-PRESSURE CHRONIC ULCER OF LEFT THIGH 12/21/2017 MARQUIS COLMENARES FISH ICER Ot Z89.512 ACQUIRED ABSENCE OF LEFT LEG BELOW KNEE 12/24/2017 MARQUIS COLMENARES FISH ICER Ot B36.9 SUPERFICIAL MYCOSIS, UNSPECIFIED 12/24/2017 MARQUIS COLMENARES R FISH ICER Ot L03.116 CELLULITIS OF LEFT LOWER LIMB 12/24/2017 D[facility] MARQUIS R FISH ICER Ot L97.122 NON-PRESSURE CHRONIC ULCER OF LEFT THIGH 12/24/2017 DEDRA MARQUIS R FISH ICER Ot Z89.512 ACQUIRED ABSENCE OF LEFT LEG BELOW KNEE 12/25/2017 MARQUIS COLMENARES R FISH ICER Ot B36.9 SUPERFICIAL MYCOSIS, UNSPECIFIED 12/25/2017 D[facility] MARQUIS R FISH ICER Ot L03.116 CELLULITIS OF LEFT LOWER LIMB 12/25/2017 MARQUIS COLMENARES FISH ICER Ot L97.122 NON-PRESSURE CHRONIC ULCER OF LEFT THIGH 12/25/2017 MARQUIS COLMENARES R FISH ICER Ot Z89.512 ACQUIRED ABSENCE OF LEFT LEG BELOW KNEE 12/27/2017 MARQUIS COLMENARES R FISH ICER Ot B36.9 SUPERFICIAL MYCOSIS, UNSPECIFIED 12/27/2017 MARQUIS COLMENARES R FISH ICER Ot L03.116 CELLULITIS OF LEFT LOWER LIMB 12/27/2017 [facility] MARQUIS R FISH ICER Ot L97.121 NON-PRS CHRONIC ULCER OF LEFT THIGH LIMI 12/27/2017 MARQUIS COLMENARES FISH ICER Ot L97.122 NON-PRESSURE CHRONIC ULCER OF LEFT THIGH 12/27/2017 MARQUIS COLMENARES R FISH ICER Ot Z89.512 ACQUIRED ABSENCE OF LEFT LEG BELOW KNEE 01/02/2018 MARQUIS COLMENARES R FISH ICER Ot B36.9 SUPERFICIAL MYCOSIS, UNSPECIFIED 01/02/2018 MARQUIS COLMENARES R FISH ICER Ot L03.116 CELLULITIS OF LEFT LOWER LIMB 01/02/2018 MARQUIS COLMENARES R FISH ICER Ot L97.122 NON-PRESSURE CHRONIC ULCER OF LEFT THIGH 01/02/2018 MARQUIS COLMENARES R FISH ICER Ot Z89.512 ACQUIRED ABSENCE OF LEFT LEG BELOW KNEE 01/03/2018 MARQUIS COLMENARES R FISH ICER Ot B36.9 SUPERFICIAL MYCOSIS, UNSPECIFIED 01/03/2018 MARQUIS COLMENARES R FISH ICER Ot L03.116 CELLULITIS OF LEFT LOWER LIMB 01/03/2018 MARQUIS COLMENARES FISH ICER Ot L97.121 NON-PRS CHRONIC ULCER OF LEFT THIGH LIMI 01/03/2018 MARQUIS COLMENARES R FISH ICER Ot L97.122 NON-PRESSURE CHRONIC ULCER OF LEFT THIGH 01/03/2018 MARQUIS COLMENARES R FISH ICER Ot Z89.512 ACQUIRED ABSENCE OF LEFT LEG BELOW KNEE 01/07/2018 MARQUIS COLMENARES R FISH ICER Ot B36.9 SUPERFICIAL MYCOSIS, UNSPECIFIED 01/07/2018 [facility] MARQUIS R FISH ICER Ot L03.116 CELLULITIS OF LEFT LOWER LIMB 01/07/2018 DED[facility] MARQUIS R FISH ICER Ot L97.122 NON-PRESSURE CHRONIC ULCER OF LEFT THIGH 01/07/2018 MARQUIS COLMENARES R FISH ICER Ot Z89.512 ACQUIRED ABSENCE OF LEFT LEG BELOW KNEE 01/07/2018 MARQUIS COLMENARES FISH ICER Ot B36.9 SUPERFICIAL MYCOSIS, UNSPECIFIED 01/07/2018 MARQUIS COLMENARES R FISH ICER Ot L03.116 CELLULITIS OF LEFT LOWER LIMB 01/07/2018 DED[facility] MARQUIS R FISH ICER Ot L97.122 NON-PRESSURE CHRONIC ULCER OF LEFT THIGH 01/07/2018 MARQUIS COLMENARES R FISH ICER Ot Z89.512 ACQUIRED ABSENCE OF LEFT LEG BELOW KNEE 01/07/2018 MARQUIS COLMENARES R FISH ICER Ot B36.9 SUPERFICIAL MYCOSIS, UNSPECIFIED 01/07/2018 MARQUIS COLMENARES R FISH ICER Ot L03.116 CELLULITIS OF LEFT LOWER LIMB 01/07/2018 MARQUIS COLMENARES FISH ICER Ot L97.122 NON-PRESSURE CHRONIC ULCER OF LEFT THIGH 01/07/2018 MARQUIS COLMENARES R FISH ICER Ot Z89.512 ACQUIRED ABSENCE OF LEFT LEG BELOW KNEE 01/07/2018 MARQUIS COLMENARES R FISH ICER Ot B36.9 SUPERFICIAL MYCOSIS, UNSPECIFIED 01/07/2018 MARQUIS COLMENARES R FISH ICER Ot L03.116 CELLULITIS OF LEFT LOWER LIMB 01/07/2018 MARQUIS COLMENARES R FISH ICER Ot L97.122 NON-PRESSURE CHRONIC ULCER OF LEFT THIGH 01/07/2018 MARQUIS COLMENARES R FISH ICER Ot Z89.512 ACQUIRED ABSENCE OF LEFT LEG BELOW KNEE 01/08/2018 MARQUIS COLMENARES R FISH ICER Ot B36.9 SUPERFICIAL MYCOSIS, UNSPECIFIED 01/08/2018 MARQUIS COLMENARES FISH ICER Ot L03.116 CELLULITIS OF LEFT LOWER LIMB 01/08/2018 MARQUIS COLMENARES FISH ICER Ot L97.121 NON-PRS CHRONIC ULCER OF LEFT THIGH LIMI 01/08/2018 MARQUIS COLMENARES FISH ICER Ot L97.122 NON-PRESSURE CHRONIC ULCER OF LEFT THIGH 01/08/2018 MARQUIS COLMENARES FISH ICER Ot Z89.512 ACQUIRED ABSENCE OF LEFT LEG BELOW KNEE 01/08/2018 MARQUIS COLMENARES FISH ICER Ot Z51.81 ENCOUNTER FOR THERAPEUTIC DRUG LEVEL MON 01/08/2018 MARQUIS COLMENARES FISH ICER Ot Z79.899 OTHER CORRECTION (CURRENT) DRUG THERAPY 01/09/2018 MARQUIS COLMENARES FISH ICER Ot B36.9 SUPERFICIAL MYCOSIS, UNSPECIFIED 01/09/2018 MARQUIS COLMENARES FISH ICER Ot L03.116 CELLULITIS OF LEFT LOWER LIMB 01/09/2018 MARQUIS COLMENARES FISH ICER Ot L97.121 NON-PRS CHRONIC ULCER OF LEFT THIGH LIMI 01/09/2018 MARQUIS COLMENARES R FISH ICER Ot Z89.512 ACQUIRED ABSENCE OF LEFT LEG BELOW KNEE 01/14/2018 MARQUIS COLMENARES R FISH ICER Ot B36.9 SUPERFICIAL MYCOSIS, UNSPECIFIED 01/14/2018 MARQUIS COLMENARES R FISH ICER Ot L03.116 CELLULITIS OF LEFT LOWER LIMB 01/14/2018 MARQUIS COLMENARES FISH ICER Ot L97.121 NON-PRS CHRONIC ULCER OF LEFT THIGH LIMI 01/14/2018 MARQUIS COLMENARES FISH ICER Ot Z89.512 ACQUIRED ABSENCE OF LEFT LEG BELOW KNEE 01/16/2018 MARQUIS COLMENARES FISH ICER Ot B36.9 SUPERFICIAL MYCOSIS, UNSPECIFIED 01/16/2018 MARQUIS COLMENARES R FISH ICER Ot L03.116 CELLULITIS OF LEFT LOWER LIMB 01/16/2018 MARQUIS COLMENARES R FISH ICER Ot L97.121 NON-PRS CHRONIC ULCER OF LEFT THIGH LIMI 01/16/2018 MARQUIS COLMENARES R FISH ICER Ot Z89.512 ACQUIRED ABSENCE OF LEFT LEG BELOW KNEE 01/16/2018 MARQUIS COLMENARES R FISH ICER Ot B36.9 SUPERFICIAL MYCOSIS, UNSPECIFIED 01/16/2018 MARQUIS COLMENARES R FISH ICER Ot L03.116 CELLULITIS OF LEFT LOWER LIMB 01/16/2018 MARQUIS COLMENARES FISH ICER Ot L97.121 NON-PRS CHRONIC ULCER OF LEFT THIGH LIMI 01/16/2018 D[facility] MARQUIS R FISH ICER Ot L97.122 NON-PRESSURE CHRONIC ULCER OF LEFT THIGH 01/16/2018 DEDRA MARQUIS R FISH ICER Ot Z89.512 ACQUIRED ABSENCE OF LEFT LEG BELOW KNEE 01/22/2018 DEDRA MARQUIS R FISH ICER Ot B36.9 SUPERFICIAL MYCOSIS, UNSPECIFIED 01/22/2018 DEDRA MARQUIS R FISH ICER Ot L03.116 CELLULITIS OF LEFT LOWER LIMB 01/22/2018 DEDRA MARQUIS R FISH ICER Ot L97.121 NON-PRS CHRONIC ULCER OF LEFT THIGH LIMI 01/22/2018 DEDRA MARQUIS R FISH ICER Ot L97.122 NON-PRESSURE CHRONIC ULCER OF LEFT THIGH 01/22/2018 DEDRA MARQUIS R FISH ICER Ot Z89.512 ACQUIRED ABSENCE OF LEFT LEG BELOW KNEE 01/23/2018 DEDRA MARQUIS R FISH ICER Ot B36.9 SUPERFICIAL MYCOSIS, UNSPECIFIED 01/23/2018 DEDRA MARQUIS R FISH ICER Ot L03.116 CELLULITIS OF LEFT LOWER LIMB 01/23/2018 MARQUIS COLMENARES R FISH ICER Ot L97.122 NON-PRESSURE CHRONIC ULCER OF LEFT THIGH 01/23/2018 DEDRA MARQUIS R FISH ICER Ot Z89.512 ACQUIRED ABSENCE OF LEFT LEG BELOW KNEE 01/23/2018 MARQUIS COLMENARES R FISH ICER Ot B36.9 SUPERFICIAL MYCOSIS, UNSPECIFIED 01/23/2018 DEDRA MARQUIS R FISH ICER Ot L03.116 CELLULITIS OF LEFT LOWER LIMB 01/23/2018 DEDRA MARQUIS R FISH ICER Ot L97.122 NON-PRESSURE CHRONIC ULCER OF LEFT THIGH 01/23/2018 DEDRA MARQUIS R FISH ICER Ot Z89.512 ACQUIRED ABSENCE OF LEFT LEG BELOW KNEE 01/28/2018 DEDRA MARQUIS R FISH ICER Ot B36.9 SUPERFICIAL MYCOSIS, UNSPECIFIED 01/28/2018 DEDRA MARQUIS R FISH ICER Ot L03.116 CELLULITIS OF LEFT LOWER LIMB 01/28/2018 DEDRA MARQUIS R FISH ICER Ot L97.122 NON-PRESSURE CHRONIC ULCER OF LEFT THIGH 01/28/2018 DEDRA MARQUIS R FISH ICER Ot Z89.512 ACQUIRED ABSENCE OF LEFT LEG BELOW KNEE 01/30/2018 DEDRA MARQUIS R FISH ICER Ot B36.9 SUPERFICIAL MYCOSIS, UNSPECIFIED 01/30/2018 DEDRA MARQUIS R FISH ICER Ot L03.116 CELLULITIS OF LEFT LOWER LIMB 01/30/2018 DEDRAPASCUALN R FISH ICER Ot L97.121 NON-PRS CHRONIC ULCER OF LEFT THIGH LIMI 01/30/2018 DEDRA MARQUIS R FISH ICER Ot Z89.512 ACQUIRED ABSENCE OF LEFT LEG BELOW KNEE 02/01/2018 MARQUIS COLMENARES R FISH ICER Ot B36.9 SUPERFICIAL MYCOSIS, UNSPECIFIED 02/01/2018 MARQUIS COLMENARES R FISH ICER Ot L03.116 CELLULITIS OF LEFT LOWER LIMB 02/01/2018 MARQUIS COLMENARES R FISH ICER Ot L97.121 NON-PRS CHRONIC ULCER OF LEFT THIGH LIMI 02/01/2018 DEDRA MARQUIS R FISH ICER Ot L97.122 NON-PRESSURE CHRONIC ULCER OF LEFT THIGH 02/01/2018 MARQUIS COLMENARES R FISH ICER Ot Z89.512 ACQUIRED ABSENCE OF LEFT LEG BELOW KNEE 02/04/2018 MARQUIS COLMENARES R FISH ICER Ot B36.9 SUPERFICIAL MYCOSIS, UNSPECIFIED 02/04/2018 MARQUIS COLMENARES R FISH ICER Ot L03.116 CELLULITIS OF LEFT LOWER LIMB 02/04/2018 MARQUIS COLMENARES R FISH ICER Ot L97.121 NON-PRS CHRONIC ULCER OF LEFT THIGH LIMI 02/04/2018 D[facility]RA MARQUIS R FISH ICER Ot L97.122 NON-PRESSURE CHRONIC ULCER OF LEFT THIGH 02/04/2018 MARQUIS COLMENARES R FISH ICER Ot Z89.512 ACQUIRED ABSENCE OF LEFT LEG BELOW KNEE 02/05/2018 MARQUIS COLMENARES R FISH ICER Ot B36.9 SUPERFICIAL MYCOSIS, UNSPECIFIED 02/05/2018 MARQUIS COLMENARES FISH ICER Ot L03.116 CELLULITIS OF LEFT LOWER LIMB 02/05/2018 MARQUIS COLMENARES FISH ICER Ot L97.121 NON-PRS CHRONIC ULCER OF LEFT THIGH LIMI 02/05/2018 MARQUIS COLMENARES R FISH ICER Ot Z89.512 ACQUIRED ABSENCE OF LEFT LEG BELOW KNEE 02/13/2018 MARQUIS COLMENARES FISH ICER Ot B36.9 SUPERFICIAL MYCOSIS, UNSPECIFIED 02/13/2018 MARQUIS COLMENARES R FISH ICER Ot L03.116 CELLULITIS OF LEFT LOWER LIMB 02/13/2018 MARQUIS COLMENARES R FISH ICER Ot L97.122 NON-PRESSURE CHRONIC ULCER OF LEFT THIGH 02/13/2018 MARQUIS COLMENARES R FISH ICER Ot Z89.512 ACQUIRED ABSENCE OF LEFT LEG BELOW KNEE 03/01/2018 DEDRA MARQUIS Torres FISH ICER Ot B36.9 SUPERFICIAL MYCOSIS, UNSPECIFIED 03/01/2018 MARQUIS COLMENARES R FISH ICER Ot L03.116 CELLULITIS OF LEFT LOWER LIMB 03/01/2018 MARQUIS COLMENARES FISH ICER Ot L97.121 NON-PRS CHRONIC ULCER OF LEFT THIGH LIMI 03/01/2018 DEDRA MARQUIS Torres FISH ICER Ot Z89.512 ACQUIRED ABSENCE OF LEFT LEG BELOW KNEE 03/01/2018 MARQUIS COLMENARES FISH ICER Ot B36.9 SUPERFICIAL MYCOSIS, UNSPECIFIED 03/01/2018 MARQUIS COLMENARSE R FISH ICER Ot L03.116 CELLULITIS OF LEFT LOWER LIMB 03/01/2018 MARQUIS COLMENARES R FISH ICER Ot L97.121 NON-PRS CHRONIC ULCER OF LEFT THIGH LIMI 03/01/2018 MARQUIS COLMEANRES FISH ICER Ot Z89.512 ACQUIRED ABSENCE OF LEFT LEG BELOW KNEE 03/04/2018 MARQUIS COLMENARES FISH ICER Ot Z51.81 ENCOUNTER FOR THERAPEUTIC DRUG LEVEL MON 03/04/2018 MARQUIS COLMENARES R FISH ICER Ot Z79.899 OTHER CORRECTION (CURRENT) DRUG THERAPY 03/05/2018 MARQUIS COLMENARES R FISH ICER Ot Z51.81 ENCOUNTER FOR THERAPEUTIC DRUG LEVEL MON 03/05/2018 MARQUIS COLMENARES R FISH ICER Ot Z79.899 OTHER CORRECTION (CURRENT) DRUG THERAPY 03/11/2018 MARQUIS COLMENARES FISH ICER Ot B36.9 SUPERFICIAL MYCOSIS, UNSPECIFIED 03/11/2018 MARQUIS COLMENARES FISH ICER Ot L03.116 CELLULITIS OF LEFT LOWER LIMB 03/11/2018 MARQUIS COLMENARES FISH ICER Ot L97.122 NON-PRESSURE CHRONIC ULCER OF LEFT THIGH 03/11/2018 MARQUIS COLEMNARES FISH ICER Ot Z89.512 ACQUIRED ABSENCE OF LEFT LEG BELOW KNEE 2019 MARQUIS COLMENARES R FISH ICER Ot L03.116 CELLULITIS OF LEFT LOWER LIMB 2019 MARQUIS COLMENARES FISH ICER Ot Z89.512 ACQUIRED ABSENCE OF LEFT LEG BELOW KNEE 2019 MARQUIS COLMENARES FISH ICER Ot B36.9 SUPERFICIAL MYCOSIS, UNSPECIFIED 2019 MARQUIS COLMENARES FISH ICER Ot L03.116 CELLULITIS OF LEFT LOWER LIMB 2019 MARQUIS COLMENARES FISH ICER Ot L97.122 NON-PRESSURE CHRONIC ULCER OF LEFT THIGH 2019 DEDRA MARQUIS R FISH ICER Ot Z89.512 ACQUIRED ABSENCE OF LEFT LEG BELOW KNEE 2019 DEDRAMARQUIS R FISH ICER Ot B36.9 SUPERFICIAL MYCOSIS, UNSPECIFIED 2019 DEDRA MARQUIS R FISH ICER Ot L03.116 CELLULITIS OF LEFT LOWER LIMB 2019 DEDRA MARQUIS R FISH ICER Ot L97.122 NON-PRESSURE CHRONIC ULCER OF LEFT THIGH 2019 DEDRA MARQUIS R FISH ICER Ot Z89.512 ACQUIRED ABSENCE OF LEFT LEG BELOW KNEE 2019 DEDRA MARQUIS R FISH ICER Ot B36.9 SUPERFICIAL MYCOSIS, UNSPECIFIED 2019 DEDRA MARQUIS R FISH ICER Ot L03.116 CELLULITIS OF LEFT LOWER LIMB 2019 DEDRA MARQUIS R FISH ICER Ot L97.122 NON-PRESSURE CHRONIC ULCER OF LEFT THIGH 2019 MARQUIS COLMENARES R FISH ICER Ot Z89.512 ACQUIRED ABSENCE OF LEFT LEG BELOW KNEE 2019 DEDRA MARQUIS R FISH ICER Ot B36.9 SUPERFICIAL MYCOSIS, UNSPECIFIED 2019 DEDRA MARQUIS R FISH ICER Ot L03.116 CELLULITIS OF LEFT LOWER LIMB 2019 DEDRA MARQIUS R FISH ICER Ot L97.122 NON-PRESSURE CHRONIC ULCER OF LEFT THIGH 2019 MARQUIS COLMENARES R FISH ICER Ot Z89.512 ACQUIRED ABSENCE OF LEFT LEG BELOW KNEE 2019 MARQUIS COLMENARES R FISH ICER Ot B36.9 SUPERFICIAL MYCOSIS, UNSPECIFIED 2019 MARQUIS COLMENARES R FISH ICER Ot L03.116 CELLULITIS OF LEFT LOWER LIMB 2019 DEDRA MARQUIS R FISH ICER Ot L97.122 NON-PRESSURE CHRONIC ULCER OF LEFT THIGH 2019 MARQUIS COLMENARES R FISH ICER Ot Z89.512 ACQUIRED ABSENCE OF LEFT LEG BELOW KNEE 2019 MARQUIS COLMENARES R FISH ICER Ot B36.9 SUPERFICIAL MYCOSIS, UNSPECIFIED 2019 DEDRA MARQUIS R FISH ICER Ot L03.116 CELLULITIS OF LEFT LOWER LIMB 2019 DEDRA MARQUIS R FISH ICER Ot L97.121 NON-PRS CHRONIC ULCER OF LEFT THIGH LIMI 2019 DEDRA MARQUIS R FISH ICER Ot L97.122 NON-PRESSURE CHRONIC ULCER OF LEFT THIGH 2019 DEDRA MARQUIS R FISH ICER Ot Z89.512 ACQUIRED ABSENCE OF LEFT LEG BELOW KNEE 2019 MARQUIS COLMENARES R FISH ICER Ot B36.9 SUPERFICIAL MYCOSIS, UNSPECIFIED 2019 MARQUIS COLMENARES R FISH ICER Ot L03.116 CELLULITIS OF LEFT LOWER LIMB 2019 MARQUIS COLMENARES R FISH ICER Ot L97.121 NON-PRS CHRONIC ULCER OF LEFT THIGH LIMI 2019 DEDRA MARQUIS R FISH ICER Ot L97.122 NON-PRESSURE CHRONIC ULCER OF LEFT THIGH 2019 DEDRA MARQUIS R FISH ICER Ot Z89.512 ACQUIRED ABSENCE OF LEFT LEG BELOW KNEE 2019 MARQUIS COLMENARES R FISH ICER Ot B36.9 SUPERFICIAL MYCOSIS, UNSPECIFIED 2019 MARQUIS COLMENARES R FISH ICER Ot L03.116 CELLULITIS OF LEFT LOWER LIMB 2019 MARQUIS COLMENARES FISH ICER Ot L97.121 NON-PRS CHRONIC ULCER OF LEFT THIGH LIMI 2019 MARQUIS COLMENARES R FISH ICER Ot L97.122 NON-PRESSURE CHRONIC ULCER OF LEFT THIGH 2019 MARQUIS COLMENARES R FISH ICER Ot Z89.512 ACQUIRED ABSENCE OF LEFT LEG BELOW KNEE 2019 MARQUIS COLMENARES R FISH ICER Ot B36.9 SUPERFICIAL MYCOSIS, UNSPECIFIED 2019 MARQUIS COLMENARES R FISH ICER Ot L03.116 CELLULITIS OF LEFT LOWER LIMB 2019 MARQUIS COLMENARES R FISH ICER Ot L97.121 NON-PRS CHRONIC ULCER OF LEFT THIGH LIMI 2019 MARQUIS COLMENARES R FISH ICER Ot Z89.512 ACQUIRED ABSENCE OF LEFT LEG BELOW KNEE 2019 MARQUIS COLMENARES R FISH ICER Ot B36.9 SUPERFICIAL MYCOSIS, UNSPECIFIED 2019 MARQUIS COLMENARES R FISH ICER Ot L03.116 CELLULITIS OF LEFT LOWER LIMB 2019 MARQUIS COLMENARES R FISH ICER Ot L97.121 NON-PRS CHRONIC ULCER OF LEFT THIGH LIMI 2019 MARQUIS COLMENARES R FISH ICER Ot Z89.512 ACQUIRED ABSENCE OF LEFT LEG BELOW KNEE 2019 MARQUIS COLMENARES R FISH ICER Ot B36.9 SUPERFICIAL MYCOSIS, UNSPECIFIED 2019 MARQUIS COLMENARES APRN Ot L03.116 CELLULITIS OF LEFT LOWER LIMB 2019 MARQUIS COLMENARES APRN Ot L97.122 NON-PRESSURE CHRONIC ULCER OF LEFT THIGH 2019 MARQUIS COLMENARES APRN Ot Z89.512 ACQUIRED ABSENCE OF LEFT LEG BELOW KNEE 2019 MARQUIS COLMENARES APRN Ot Z51.81 ENCOUNTER FOR THERAPEUTIC DRUG LEVEL MON 2019 MARQUIS COLMENARES APRN Ot 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 01/17/2019 KIANNA PERES MD, [...] 01/31/2019 KIANNA PERES MD, Ot 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 01/31/2019 [...] ENCOUNTER FOR OTHER PREPROCEDURAL EXAMIN 08/21/2019 ELIAS DOGAOL Ot C18. 9 MALIGNANT NEOPLASM OF COLON, [...] GRIFFIN DO, GALO D Ot Z79. 4 CORRECTION (CURRENT) USE OF INSULIN 08/29/2019 GRIFFIN DO, [...] GRIFFIN DO, GALO D Ot Z79. 4 ETIOLOGY TEACHER (CURRENT) USE OF INSULIN 08/30/2019 GRIFFIN DO, [...] GRIFFIN DO, GALO D Ot Z79. 4 CORRECTION (CURRENT) USE OF INSULIN 09/05/2019 GRIFFIN DO, [...] GRIFFIN DO, GALO D Ot Z79. 4 CORRECTION (CURRENT) USE OF INSULIN 09/05/2019 GRIFFIN DO, [...] GRIFFIN DO, GALO D Ot Z79. 4 CORRECTION (CURRENT) USE OF INSULIN 09/05/2019 GRIFFIN DO, [...] GRIFFIN DO, GALO D Ot Z79. 4 CORRECTION (CURRENT) USE OF INSULIN 09/06/2019 GRIFFIN DO, [...] GRIFFIN DO, GALO D Ot Z79. 4 CORRECTION (CURRENT) USE OF INSULIN 09/07/2019 GRIFFIN DO, [...] GRIFFIN DO, GALO D Ot Z79. 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 42 HYPOMAGNESEMIA 09/09/2019 [facility]. 0 DEHYDRATION 09/09/2019 [facility]. 6 HYPOKALEMIA 09/09/2019 [facility] I10 ESSENTIAL (PRIMARY) HYPERTENSION 09/09/2019 [facility]. 0 NONRHEUMATIC AORTIC (VALVE) STENOSIS 09/09/2019 [facility]. 9 HYPOTENSION, UNSPECIFIED 09/09/2019 [facility] J18. 9 PNEUMONIA, UNSPECIFIED ORGANISM 09/09/2019 [facility]. 8 PLEURAL EFFUSION IN OTHER CONDITIONS CLA 09/09/2019 [facility]96. 00 ACUTE RESPIRATORY FAILURE, UNSP W HYPOXI 09/09/2019 [facility]56. 50 INTESTNL ADHESIONS, UNSP TO PARTIAL V 09/09/2019 [facility]. 7 ILEUS, UNSPECIFIED 09/09/2019 [facility]. 89 OTH POSTPROCEDURAL COMPLICATIONS AND DIS 09/09/2019 [facility]. 0 BENIGN PROSTATIC HYPERPLASIA WITHOUT LOW 09/09/2019 [facility]. 72 ACCIDENTAL PNCTR LAC OF A SYS ORG D 09/09/2019 [facility]. 9 RETENTION OF URINE, UNSPECIFIED 09/09/2019 [facility]79. 4 CORRECTION (CURRENT) USE OF INSULIN 09/09/2019 [facility]. 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 10/15/2019 DEDRA MARQUIS R FISH ICER Ot B36.9 SUPERFICIAL MYCOSIS, UNSPECIFIED 10/15/2019 DEDRA, MARQUIS R FISH ICER Ot L03.116 CELLULITIS OF LEFT LOWER LIMB 10/15/2019 DEDRA, MARQUIS R FISH ICER Ot L97.122 NON-PRESSURE CHRONIC ULCER OF LEFT THIGH 10/15/2019 DEDRA MARQUIS R FISH ICER Ot Z89.512 ACQUIRED ABSENCE OF LEFT LEG BELOW KNEE 10/15/2019 DEDRA, MARQUIS R FISH ICER Ot B36.9 SUPERFICIAL MYCOSIS, UNSPECIFIED 10/15/2019 DEDRA, MARQUIS R FISH ICER Ot L03.116 CELLULITIS OF LEFT LOWER LIMB 10/15/2019 DEDRA, MARQUIS R FISH ICER Ot L97.122 NON-PRESSURE CHRONIC ULCER OF LEFT THIGH 10/15/2019 DEDRA MARQUIS R FISH ICER Ot Z89.512 ACQUIRED ABSENCE OF LEFT LEG BELOW KNEE 10/15/2019 DEDRA MARQUIS R FISH ICER Ot B36.9 SUPERFICIAL MYCOSIS, UNSPECIFIED 10/15/2019 DEDRA, MARQUIS R FISH ICER Ot L03.116 CELLULITIS OF LEFT LOWER LIMB 10/15/2019 DEDRA, MARQUIS R FISH ICER Ot L97.122 NON-PRESSURE CHRONIC ULCER OF LEFT THIGH 10/15/2019 DEDRA MARQUIS R FISH ICER Ot Z89.512 ACQUIRED ABSENCE OF LEFT LEG BELOW KNEE 10/15/2019 DEDRA MARQUIS R FISH ICER Ot B36.9 SUPERFICIAL MYCOSIS, UNSPECIFIED 10/15/2019 DEDRA, MARQUIS R FISH ICER Ot L03.116 CELLULITIS OF LEFT LOWER LIMB 10/15/2019 DEDRA MARQUIS R FISH ICER Ot L97.122 NON-PRESSURE CHRONIC ULCER OF LEFT THIGH 10/15/2019 DEDRA MARQUIS R FISH ICER Ot Z89.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 10/15/2019 DEDRA, MARQUIS R FISH ICER Ot B36.9 SUPERFICIAL MYCOSIS, UNSPECIFIED 10/15/2019 DEDRA, MARQUIS R FISH ICER Ot L03.116 CELLULITIS OF LEFT LOWER LIMB 10/15/2019 DEDRA, MARQUIS R FISH ICER Ot L97.122 NON-PRESSURE CHRONIC ULCER OF LEFT THIGH 10/15/2019 DEDRA MARQUIS R FISH ICER Ot Z89.512 ACQUIRED ABSENCE OF LEFT LEG BELOW KNEE 10/15/2019 DEDRA, MARQUIS R FISH ICER Ot B36.9 SUPERFICIAL MYCOSIS, UNSPECIFIED 10/15/2019 DEDRA MARQUIS R FISH ICER Ot L03.116 CELLULITIS OF LEFT LOWER LIMB 10/15/2019 DEDRA MARQUIS R FISH ICER Ot L97.121 NON-PRS CHRONIC ULCER OF LEFT THIGH LIMI 10/15/2019 DEDRA, MARQUIS R FISH ICER Ot L97.122 NON-PRESSURE CHRONIC ULCER OF LEFT THIGH 10/15/2019 DEDRA MARQUIS R FISH ICER Ot Z89.512 ACQUIRED ABSENCE OF LEFT LEG BELOW KNEE 10/15/2019 DEDRA MARQIUS R FISH ICER Ot B36.9 SUPERFICIAL MYCOSIS, UNSPECIFIED 10/15/2019 DEDRA MARQUIS R FISH ICER Ot L03.116 CELLULITIS OF LEFT LOWER LIMB 10/15/2019 DEDRA MARQUIS R FISH ICER Ot L97.121 NON-PRS CHRONIC ULCER OF LEFT THIGH LIMI 10/15/2019 DEDRA MARQUIS R FISH ICER Ot L97.122 NON-PRESSURE CHRONIC ULCER OF LEFT THIGH 10/15/2019 DEDRA MARQUIS R FISH ICER Ot Z89.512 ACQUIRED ABSENCE OF LEFT LEG BELOW KNEE 10/15/2019 DEDRA MARQUIS R FISH ICER Ot B36.9 SUPERFICIAL MYCOSIS, UNSPECIFIED 10/15/2019 DEDRA MARQUIS R FISH ICER Ot L03.116 CELLULITIS OF LEFT LOWER LIMB 10/15/2019 DEDRA MARQUIS R FISH ICER Ot L97.121 NON-PRS CHRONIC ULCER OF LEFT THIGH LIMI 10/15/2019 DEDRA MARQUIS R FISH ICER Ot L97.122 NON-PRESSURE CHRONIC ULCER OF LEFT THIGH 10/15/2019 DEDRA MARQUIS R FISH ICER Ot Z89.512 ACQUIRED ABSENCE OF LEFT LEG BELOW KNEE 10/15/2019 DEDRA MARQUIS R FISH ICER Ot B36.9 SUPERFICIAL MYCOSIS, UNSPECIFIED 10/15/2019 EDDRA MARQUIS R FISH ICER Ot L03.116 CELLULITIS OF LEFT LOWER LIMB 10/15/2019 DEDRA MARQUIS R FISH ICER Ot L97.121 NON-PRS CHRONIC ULCER OF LEFT THIGH LIMI 10/15/2019 DEDRA MARQUIS R FISH ICER Ot Z89.512 ACQUIRED ABSENCE OF LEFT LEG BELOW KNEE 10/15/2019 DEDRA MARQUIS R FISH ICER Ot B36.9 SUPERFICIAL MYCOSIS, UNSPECIFIED 10/15/2019 DEDRA, MARQUIS R FISH ICER Ot L03.116 CELLULITIS OF LEFT LOWER LIMB 10/15/2019 DEDRA MARQUIS R FISH ICER Ot L97.121 NON-PRS CHRONIC ULCER OF LEFT THIGH LIMI 10/15/2019 MARQUIS COLMENARES FISH ICER Ot Z89.512 ACQUIRED ABSENCE OF LEFT LEG BELOW KNEE 10/15/2019 MARQUIS COLMENARES FISH ICER Ot B36.9 SUPERFICIAL MYCOSIS, UNSPECIFIED 10/15/2019 MARQUIS COLMENARES R FISH ICER Ot L03.116 CELLULITIS OF LEFT LOWER LIMB 10/15/2019 MARQUIS COLMENARES FISH ICER Ot L97.122 NON-PRESSURE CHRONIC ULCER OF LEFT THIGH 10/15/2019 MARQUIS COLMENARES FISH ICER Ot Z89.512 ACQUIRED ABSENCE OF LEFT LEG BELOW KNEE 10/15/2019 MARQUIS COLMENARES FISH ICER Ot Z51.81 ENCOUNTER FOR THERAPEUTIC DRUG LEVEL MON 10/15/2019 MARQUIS COLMENARES FISH ICER Ot Z79.899 OTHER CORRECTION (CURRENT) DRUG THERAPY 10/15/2019 KIANNA PERES MD, Ot E11.622 TYPE 2 DIABETES MELLITUS WITH OTHER SKIN 10/15/2019 KIANNA PERES MD, Ot 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 10/15/2019 [...] UNSP MALIGNANT NEOPLASM OF 10/17/2019 MARQUIS COLMENARES FISH ICER Ot L03.116 CELLULITIS OF LEFT LOWER LIMB [...] LEG BELOW KNEE 10/17/2019 DEDRA, MARQUIS R FISH ICER Ot B36.9 SUPERFICIAL MYCOSIS, UNSPECIFIED 10/17/2019 DEDRA, MARQUIS R FISH ICER Ot L03.116 CELLULITIS OF LEFT LOWER LIMB 10/17/2019 DEDRA MARQUIS R FISH ICER Ot L97.122 NON-PRESSURE CHRONIC ULCER OF LEFT THIGH 10/17/2019 DEDRA MARQUIS R FISH ICER Ot Z89.512 ACQUIRED ABSENCE OF LEFT LEG BELOW KNEE 10/17/2019 DEDRA MARQUIS R FISH ICER Ot B36.9 SUPERFICIAL MYCOSIS, UNSPECIFIED 10/17/2019 DEDRA, MARQUIS R FISH ICER Ot L03.116 CELLULITIS OF LEFT LOWER LIMB 10/17/2019 DEDRA, MARQUIS R FISH ICER Ot L97.122 NON-PRESSURE CHRONIC ULCER OF LEFT THIGH 10/17/2019 DEDRA MARQUIS R FISH ICER Ot Z89.512 ACQUIRED ABSENCE OF LEFT LEG BELOW KNEE 10/17/2019 DEDRA MARQUIS R FISH ICER Ot B36.9 SUPERFICIAL MYCOSIS, UNSPECIFIED 10/17/2019 DEDRA MARQUIS R FISH ICER Ot L03.116 CELLULITIS OF LEFT LOWER LIMB 10/17/2019 DEDRA MARQUIS R FISH ICER Ot L97.122 NON-PRESSURE CHRONIC ULCER OF LEFT THIGH 10/17/2019 DEDRA MARQUIS R FISH ICER Ot Z89.512 ACQUIRED ABSENCE OF LEFT LEG BELOW KNEE 10/17/2019 DEDRA MARQUIS R FISH ICER Ot B36.9 SUPERFICIAL MYCOSIS, UNSPECIFIED 10/17/2019 DEDRA, MARQUIS R FISH ICER Ot L03.116 CELLULITIS OF LEFT LOWER LIMB 10/17/2019 DEDRA MARQUIS R FISH ICER Ot L97.122 NON-PRESSURE CHRONIC ULCER OF LEFT THIGH 10/17/2019 DEDRA MARQUIS R FISH ICER Ot Z89.512 ACQUIRED ABSENCE OF LEFT LEG BELOW KNEE 10/17/2019 DEDRA MARQUIS R FISH ICER Ot B36.9 SUPERFICIAL MYCOSIS, UNSPECIFIED 10/17/2019 DEDRA, MARQUIS R FISH ICER Ot L03.116 CELLULITIS OF LEFT LOWER LIMB 10/17/2019 DEDRA MARQUIS R FISH ICER Ot L97.121 NON-PRS CHRONIC ULCER OF LEFT THIGH LIMI 10/17/2019 DEDRA MARQUIS R FISH ICER Ot L97.122 NON-PRESSURE CHRONIC ULCER OF LEFT THIGH 10/17/2019 DEDRA MARQUIS R FISH ICER Ot Z89.512 ACQUIRED ABSENCE OF LEFT LEG BELOW KNEE 10/17/2019 DEDRA MARQUIS R FISH ICER Ot B36.9 SUPERFICIAL MYCOSIS, UNSPECIFIED 10/17/2019 DEDRA MARQUIS R FISH ICER Ot L03.116 CELLULITIS OF LEFT LOWER LIMB 10/17/2019 DEDRA MARQUIS R FISH ICER Ot L97.121 NON-PRS CHRONIC ULCER OF LEFT THIGH LIMI 10/17/2019 DEDRA MARQUIS R FISH ICER Ot L97.122 NON-PRESSURE CHRONIC ULCER OF LEFT THIGH 10/17/2019 DEDRA MARQUIS R FISH ICER Ot Z89.512 ACQUIRED ABSENCE OF LEFT LEG BELOW KNEE 10/17/2019 DEDRA MARQUIS R FISH ICER Ot B36.9 SUPERFICIAL MYCOSIS, UNSPECIFIED 10/17/2019 DEDRA MARQUIS R FISH ICER Ot L03.116 CELLULITIS OF LEFT LOWER LIMB 10/17/2019 DEDRA MARQUIS R FISH ICER Ot L97.121 NON-PRS CHRONIC ULCER OF LEFT THIGH LIMI 10/17/2019 DEDRA MARQUIS R FISH ICER Ot L97.122 NON-PRESSURE CHRONIC ULCER OF LEFT THIGH 10/17/2019 DEDRA MARQUIS R FISH ICER Ot Z89.512 ACQUIRED ABSENCE OF LEFT LEG BELOW KNEE 10/17/2019 DEDRA MARQUIS R FISH ICER Ot B36.9 SUPERFICIAL MYCOSIS, UNSPECIFIED 10/17/2019 DEDRA MARQUIS R FISH ICER Ot L03.116 CELLULITIS OF LEFT LOWER LIMB 10/17/2019 DEDRA MARQUIS R FISH ICER Ot L97.121 NON-PRS CHRONIC ULCER OF LEFT THIGH LIMI 10/17/2019 DEDRA MARQUIS R FISH ICER Ot Z89.512 ACQUIRED ABSENCE OF LEFT LEG BELOW KNEE 10/17/2019 DEDRA MARQUIS R FISH ICER Ot B36.9 SUPERFICIAL MYCOSIS, UNSPECIFIED 10/17/2019 DEDRA MARQUIS R FISH ICER Ot L03.116 CELLULITIS OF LEFT LOWER LIMB 10/17/2019 DEDRA MARQUIS R FISH ICER Ot L97.121 NON-PRS CHRONIC ULCER OF LEFT THIGH LIMI 10/17/2019 DEDRA MARQUIS R FISH ICER Ot Z89.512 ACQUIRED ABSENCE OF LEFT LEG BELOW KNEE 10/17/2019 DEDRA MARQUIS R FISH ICER Ot B36.9 SUPERFICIAL MYCOSIS, UNSPECIFIED 10/17/2019 DEDRA MARQUIS R FISH ICER Ot L03.116 CELLULITIS OF LEFT LOWER LIMB 10/17/2019 DEDRA MARQUIS R FISH ICER Ot L97.122 NON-PRESSURE CHRONIC ULCER OF LEFT THIGH 10/17/2019 MARQUIS COLMENARES APRN Ot Z89.512 ACQUIRED ABSENCE OF LEFT LEG BELOW KNEE 10/17/2019 MARQUIS COLMENARES FISH ICER Ot Z51.81 ENCOUNTER FOR THERAPEUTIC DRUG LEVEL MON 10/17/2019 MARQUIS COLMENARES APRN Ot 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 10/17/2019 KIANNA PERES MD, Ot E11.622 TYPE 2 DIABETES MELLITUS WITH OTHER SKIN 10/17/2019 KIANNA PERES MD, Ot 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 9 MALIGNANT NEOPLASM OF COLON, UNSPECIFIED 11/12/2019 BERT ARREDONDO MD Ot E78. 00 PURE HYPERCHOLESTEROLEMIA, [...] HISTORY OF ANTINEOPLASTIC CHEMO 11/18/2019 MARQUIS COLMENARES FISH ICER Ot L03.116 CELLULITIS OF LEFT LOWER LIMB 11/18/2019 MARQUIS COLMENARES FISH ICER Ot Z89.512 ACQUIRED ABSENCE OF LEFT LEG BELOW KNEE 11/18/2019 DEDRA, MARQUIS R FISH ICER Ot B36.9 SUPERFICIAL MYCOSIS, UNSPECIFIED 11/18/2019 DEDRA, MARQUIS R FISH ICER Ot L03.116 CELLULITIS OF LEFT LOWER LIMB 11/18/2019 DEDRA, MARQUIS R FISH ICER Ot L97.122 NON-PRESSURE CHRONIC ULCER OF LEFT THIGH 11/18/2019 DEDRA, MARQUIS R FISH ICER Ot Z89.512 ACQUIRED ABSENCE OF LEFT LEG BELOW KNEE 11/18/2019 DEDRA, MARQUIS R FISH ICER Ot B36.9 SUPERFICIAL MYCOSIS, UNSPECIFIED 11/18/2019 DEDRA, MARQUIS R FISH ICER Ot L03.116 CELLULITIS OF LEFT LOWER LIMB 11/18/2019 DEDRA, MARQUIS R FISH ICER Ot L97.122 NON-PRESSURE CHRONIC ULCER OF LEFT THIGH 11/18/2019 DEDRA, MARQUIS R FISH ICER Ot Z89.512 ACQUIRED ABSENCE OF LEFT LEG BELOW KNEE 11/18/2019 DEDRA, MARQUIS R FISH ICER Ot B36.9 SUPERFICIAL MYCOSIS, UNSPECIFIED 11/18/2019 DEDRA, MARQUIS R FISH ICER Ot L03.116 CELLULITIS OF LEFT LOWER LIMB 11/18/2019 DEDRA, MARQUIS R FISH ICER Ot L97.122 NON-PRESSURE CHRONIC ULCER OF LEFT THIGH 11/18/2019 DEDRA, MARQUIS R FISH ICER Ot Z89.512 ACQUIRED ABSENCE OF LEFT LEG BELOW KNEE 11/18/2019 DEDRA, MARQUIS R FISH ICER Ot B36.9 SUPERFICIAL MYCOSIS, UNSPECIFIED 11/18/2019 DEDRA, MARQUIS R FISH ICER Ot L03.116 CELLULITIS OF LEFT LOWER LIMB 11/18/2019 DEDRA, MARQUIS R FISH ICER Ot L97.122 NON-PRESSURE CHRONIC ULCER OF LEFT THIGH 11/18/2019 DEDRA, MARQUIS R FISH ICER Ot Z89.512 ACQUIRED ABSENCE OF LEFT LEG BELOW KNEE 11/18/2019 DEDRA, MARQUIS R FISH ICER Ot B36.9 SUPERFICIAL MYCOSIS, UNSPECIFIED 11/18/2019 DEDRA, MARQUIS R FISH ICER Ot L03.116 CELLULITIS OF LEFT LOWER LIMB 11/18/2019 DEDRA, MARQUIS R FISH ICER Ot L97.122 NON-PRESSURE CHRONIC ULCER OF LEFT THIGH 11/18/2019 DEDRA, MARQUIS R FISH ICER Ot Z89.512 ACQUIRED ABSENCE OF LEFT LEG BELOW KNEE 11/18/2019 DEDRA, MARQUIS R FISH ICER Ot B36.9 SUPERFICIAL MYCOSIS, UNSPECIFIED 11/18/2019 DEDRA, MARQUIS R FISH ICER Ot L03.116 CELLULITIS OF LEFT LOWER LIMB 11/18/2019 DEDRA MARQUIS R FISH ICER Ot L97.121 NON-PRS CHRONIC ULCER OF LEFT THIGH LIMI 11/18/2019 DEDRA, MARQUIS R FISH ICER Ot L97.122 NON-PRESSURE CHRONIC ULCER OF LEFT THIGH 11/18/2019 DEDRA MARQUIS R FISH ICER Ot Z89.512 ACQUIRED ABSENCE OF LEFT LEG BELOW KNEE 11/18/2019 DEDRA MARQUIS R FISH ICER Ot B36.9 SUPERFICIAL MYCOSIS, UNSPECIFIED 11/18/2019 DEDRA MARQUIS R FISH ICER Ot L03.116 CELLULITIS OF LEFT LOWER LIMB 11/18/2019 DEDRA, MARQUIS R FISH ICER Ot L97.121 NON-PRS CHRONIC ULCER OF LEFT THIGH LIMI 11/18/2019 DEDRA, MARQUIS R FISH ICER Ot L97.122 NON-PRESSURE CHRONIC ULCER OF LEFT THIGH 11/18/2019 DEDRA MARQUIS R FISH ICER Ot Z89.512 ACQUIRED ABSENCE OF LEFT LEG BELOW KNEE 11/18/2019 DEDRA MARQUIS R FISH ICER Ot B36.9 SUPERFICIAL MYCOSIS, UNSPECIFIED 11/18/2019 DEDRA MARQUIS R FISH ICER Ot L03.116 CELLULITIS OF LEFT LOWER LIMB 11/18/2019 DEDRA MARQUIS R FISH ICER Ot L97.121 NON-PRS CHRONIC ULCER OF LEFT THIGH LIMI 11/18/2019 DEDRA MARQUIS R FISH ICER Ot L97.122 NON-PRESSURE CHRONIC ULCER OF LEFT THIGH 11/18/2019 DEDRA MARQUIS R FISH ICER Ot Z89.512 ACQUIRED ABSENCE OF LEFT LEG BELOW KNEE 11/18/2019 DEDRA MARQUIS R FISH ICER Ot B36.9 SUPERFICIAL MYCOSIS, UNSPECIFIED 11/18/2019 DEDRA MARQUIS R FISH ICER Ot L03.116 CELLULITIS OF LEFT LOWER LIMB 11/18/2019 DEDRA MARQUIS R FISH ICER Ot L97.121 NON-PRS CHRONIC ULCER OF LEFT THIGH LIMI 11/18/2019 DEDRA, MARQUIS R FISH ICER Ot Z89.512 ACQUIRED ABSENCE OF LEFT LEG BELOW KNEE 11/18/2019 DEDRA, MARQUIS R FISH ICER Ot B36.9 SUPERFICIAL MYCOSIS, UNSPECIFIED 11/18/2019 DEDRA, MARQUIS R FISH ICER Ot L03.116 CELLULITIS OF LEFT LOWER LIMB 11/18/2019 DEDRA, MARQUIS R FISH ICER Ot L97.121 NON-PRS CHRONIC ULCER OF LEFT THIGH LIMI 11/18/2019 MARQUIS COLMENARES FISH ICER Ot Z89.512 ACQUIRED ABSENCE OF LEFT LEG BELOW KNEE 11/18/2019 MARQUIS COLMENARES FISH ICER Ot B36.9 SUPERFICIAL MYCOSIS, UNSPECIFIED 11/18/2019 MARQUIS COLMENARES FISH ICER Ot L03.116 CELLULITIS OF LEFT LOWER LIMB 11/18/2019 MARQUIS COLMENARES FISH ICER Ot L97.122 NON-PRESSURE CHRONIC ULCER OF LEFT THIGH 11/18/2019 MARQUIS COLMENARES FISH ICER Ot Z89.512 ACQUIRED ABSENCE OF LEFT LEG BELOW KNEE 11/18/2019 MARQUIS COLMENARES FISH ICER Ot Z51.81 ENCOUNTER FOR THERAPEUTIC DRUG LEVEL MON 11/18/2019 MARQUIS COLMENARES FISH ICER Ot Z79.899 OTHER CORRECTION (CURRENT) DRUG THERAPY 11/18/2019 KIANNA PERES MD, Ot E11.622 TYPE 2 DIABETES MELLITUS WITH OTHER SKIN 11/18/2019 KIANNA PERES MD, Ot 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 4 CORRECTION (CURRENT) USE OF INSULIN 11/21/2019 BRET ARREDONDO MD Ot Z79. 82 CORRECTION (CURRENT) USE OF ASPIRIN 11/21/2019 BRET ARREDONDO MD, Ot 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 11/21/2019 BRET ARREDONDO MD, [...] 11/24/2019 BRET ARREDONDO MD Ot Z79. 4 ETIOLOGY TEACHER (CURRENT) USE OF INSULIN 11/24/2019 BRET ARREDONDO MD Ot Z79. 82 ETIOLOGY TEACHER (CURRENT) USE OF ASPIRIN 11/24/2019 BRET ARREDONDO MD Ot 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 11/24/2019 BRET ARREDONDO MD [...] 11/27/2019 BRET ARREDONDO MD Ot Z79. 4 ETIOLOGY TEACHER (CURRENT) USE OF INSULIN 11/27/2019 BRET ARREDONDO MD Ot Z79. 82 ETIOLOGY TEACHER (CURRENT) USE OF ASPIRIN 11/27/2019 BRET ARREDONDO MD Ot Z79.899 OTHER CORRECTION (CURRENT) DRUG THERAPY 11/27/2019 BRET ARREDONDO MD [...] 12/09/2019 BRET ARREDONDO MD Ot Z79. 4 CORRECTION (CURRENT) USE OF INSULIN 12/09/2019 BRET ARREDONDO MD Ot Z79. 82 ETIOLOGY TEACHER (CURRENT) USE OF ASPIRIN 12/09/2019 BRET ARREDONDO MD, Ot Z79.899 OTHER CORRECTION (CURRENT) DRUG THERAPY 12/09/2019 BRET ARREDONDO MD [...] 12/19/2019 BRET ARREDONDO MD Ot Z79. 02 CORRECTION (CURRENT) USE OF ANTITHROMBOTI 12/19/2019 BRET ARREDONDO MD Ot Z79. 4 CORRECTION (CURRENT) USE OF INSULIN 12/19/2019 BRET ARREDONDO MD Ot Z79. 82 CORRECTION (CURRENT) USE OF ASPIRIN 12/19/2019 BRET ARREDONDO MD Ot Z85.038 PERSONAL HISTORY OF MALIGNANT NEOPLASM O 12/19/2019 BRET ARREDONDO MD, Ot Z86. 73 PRSNL HX OF TIA (TIA), AND CEREB INFRC W 12/19/2019 DEDRA MARQUIS R FISH ICER Ot L03.116 CELLULITIS OF LEFT LOWER LIMB 12/19/2019 DEDRA MARQUIS R FISH ICER Ot Z89.512 ACQUIRED ABSENCE OF LEFT LEG BELOW KNEE 12/19/2019 DEDRA MARQUIS R FISH ICER Ot B36.9 SUPERFICIAL MYCOSIS, UNSPECIFIED 12/19/2019 DEDRA MARQUIS R FISH ICER Ot L03.116 CELLULITIS OF LEFT LOWER LIMB 12/19/2019 DEDRA, MARQUIS R FISH ICER Ot L97.122 NON-PRESSURE CHRONIC ULCER OF LEFT THIGH 12/19/2019 DEDRA MARQUIS R FISH ICER Ot Z89.512 ACQUIRED ABSENCE OF LEFT LEG BELOW KNEE 12/19/2019 DEDRA MARQUIS R FISH ICER Ot B36.9 SUPERFICIAL MYCOSIS, UNSPECIFIED 12/19/2019 DEDRA, MARQUIS R FISH ICER Ot L03.116 CELLULITIS OF LEFT LOWER LIMB 12/19/2019 DEDRA MARQUIS R FISH ICER Ot L97.122 NON-PRESSURE CHRONIC ULCER OF LEFT THIGH 12/19/2019 DEDRA MARQUIS R FISH ICER Ot Z89.512 ACQUIRED ABSENCE OF LEFT LEG BELOW KNEE 12/19/2019 DEDRA MARQUIS R FISH ICER Ot B36.9 SUPERFICIAL MYCOSIS, UNSPECIFIED 12/19/2019 DEDRA MARQUIS R FISH ICER Ot L03.116 CELLULITIS OF LEFT LOWER LIMB 12/19/2019 DEDRA MARQUIS R FISH ICER Ot L97.122 NON-PRESSURE CHRONIC ULCER OF LEFT THIGH 12/19/2019 DEDRA MARQUIS R FISH ICER Ot Z89.512 ACQUIRED ABSENCE OF LEFT LEG BELOW KNEE 12/19/2019 DEDRA MARQUIS R FISH ICER Ot B36.9 SUPERFICIAL MYCOSIS, UNSPECIFIED 12/19/2019 DEDRA MARQUIS R FISH ICER Ot L03.116 CELLULITIS OF LEFT LOWER LIMB 12/19/2019 DEDRA MARQUIS R FISH ICER Ot L97.122 NON-PRESSURE CHRONIC ULCER OF LEFT THIGH 12/19/2019 DEDRA MARQUIS R FISH ICER Ot Z89.512 ACQUIRED ABSENCE OF LEFT LEG BELOW KNEE 12/19/2019 DEDRA MARQUIS R FISH ICER Ot B36.9 SUPERFICIAL MYCOSIS, UNSPECIFIED 12/19/2019 DEDRA MARQUIS R FISH ICER Ot L03.116 CELLULITIS OF LEFT LOWER LIMB 12/19/2019 DEDRA, MARQUIS R FISH ICER Ot L97.122 NON-PRESSURE CHRONIC ULCER OF LEFT THIGH 12/19/2019 DEDRA MARQUIS R FISH ICER Ot Z89.512 ACQUIRED ABSENCE OF LEFT LEG BELOW KNEE 12/19/2019 DEDRA MARQUIS R FISH ICER Ot B36.9 SUPERFICIAL MYCOSIS, UNSPECIFIED 12/19/2019 DEDRA MARQUIS R FISH ICER Ot L03.116 CELLULITIS OF LEFT LOWER LIMB 12/19/2019 DEDRA MARQUIS R FISH ICER Ot L97.121 NON-PRS CHRONIC ULCER OF LEFT THIGH LIMI 12/19/2019 DEDRA, MARQUIS R FISH ICER Ot L97.122 NON-PRESSURE CHRONIC ULCER OF LEFT THIGH 12/19/2019 DEDRA MARQUIS R FISH ICER Ot Z89.512 ACQUIRED ABSENCE OF LEFT LEG BELOW KNEE 12/19/2019 DEDRA MARQUIS R FISH ICER Ot B36.9 SUPERFICIAL MYCOSIS, UNSPECIFIED 12/19/2019 DEDRA MARQUIS R FISH ICER Ot L03.116 CELLULITIS OF LEFT LOWER LIMB 12/19/2019 DEDRA MARQUIS R FISH ICER Ot L97.121 NON-PRS CHRONIC ULCER OF LEFT THIGH LIMI 12/19/2019 DEDRA MARQUIS R FISH ICER Ot L97.122 NON-PRESSURE CHRONIC ULCER OF LEFT THIGH 12/19/2019 DEDRA MARQUIS R FISH ICER Ot Z89.512 ACQUIRED ABSENCE OF LEFT LEG BELOW KNEE 12/19/2019 DEDRA MARQUIS R FISH ICER Ot B36.9 SUPERFICIAL MYCOSIS, UNSPECIFIED 12/19/2019 DEDRA MARQUIS R FISH ICER Ot L03.116 CELLULITIS OF LEFT LOWER LIMB 12/19/2019 DEDRA MARQUIS R FISH ICER Ot L97.121 NON-PRS CHRONIC ULCER OF LEFT THIGH LIMI 12/19/2019 DEDRA, MARQUIS R FISH ICER Ot L97.122 NON-PRESSURE CHRONIC ULCER OF LEFT THIGH 12/19/2019 DEDRA MARQUIS R FISH ICER Ot Z89.512 ACQUIRED ABSENCE OF LEFT LEG BELOW KNEE 12/19/2019 DEDRA MARQUIS R FISH ICER Ot B36.9 SUPERFICIAL MYCOSIS, UNSPECIFIED 12/19/2019 DEDRA, MARQUIS R FISH ICER Ot L03.116 CELLULITIS OF LEFT LOWER LIMB 12/19/2019 DEDRA MARQUIS R FISH ICER Ot L97.121 NON-PRS CHRONIC ULCER OF LEFT THIGH LIMI 12/19/2019 DEDRA, MARQUIS R FISH ICER Ot Z89.512 ACQUIRED ABSENCE OF LEFT LEG BELOW KNEE 12/19/2019 DEDRA, MARQUIS R FISH ICER Ot B36.9 SUPERFICIAL MYCOSIS, UNSPECIFIED 12/19/2019 DEDRA, MARQUIS R FISH ICER Ot L03.116 CELLULITIS OF LEFT LOWER LIMB 12/19/2019 DEDRA MARQUIS R FISH ICER Ot L97.121 NON-PRS CHRONIC ULCER OF LEFT THIGH LIMI 12/19/2019 DEDRA MARQUIS R FISH ICER Ot Z89.512 ACQUIRED ABSENCE OF LEFT LEG BELOW KNEE 12/19/2019 DEDRA, MARQUIS R FISH ICER Ot B36.9 SUPERFICIAL MYCOSIS, UNSPECIFIED 12/19/2019 DEDRA, MARQUIS R FISH ICER Ot L03.116 CELLULITIS OF LEFT LOWER LIMB 12/19/2019 DEDRA MARQUIS R FISH ICER Ot L97.122 NON-PRESSURE CHRONIC ULCER OF LEFT THIGH 12/19/2019 DEDRA MARQUIS R FISH ICER Ot Z89.512 ACQUIRED ABSENCE OF LEFT LEG BELOW KNEE 12/19/2019 DEDRA MARQUIS R FISH ICER Ot Z51.81 ENCOUNTER FOR THERAPEUTIC DRUG LEVEL MON 12/19/2019 DEDRA MARQUIS R FISH ICER Ot Z79.899 OTHER CORRECTION (CURRENT) DRUG THERAPY 12/19/2019 KIANNA PERES MD Ot E11.622 TYPE 2 DIABETES MELLITUS WITH OTHER SKIN 12/19/2019 KIANNA PERES MD Ot 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 02 ETIOLOGY TEACHER (CURRENT) USE OF ANTITHROMBOTI 12/22/2019 BRET ARREDONDO MD Ot Z79. 4 ETIOLOGY TEACHER (CURRENT) USE OF INSULIN 12/22/2019 BRET ARREDONDO MD, Ot Z79. 82 CORRECTION (CURRENT) USE OF ASPIRIN 12/22/2019 BRET ARREDONDO MD, Ot Z85.038 PERSONAL HISTORY OF MALIGNANT NEOPLASM O 12/22/2019 BRET ARREDONDO MD, Ot Z86. 73 PRSNL HX OF TIA (TIA), AND CEREB INFRC W 12/29/2019 MARQUIS COLMENARES APRN Ot L03.116 CELLULITIS OF LEFT LOWER LIMB 12/29/2019 DEDRA, MARQUIS R FISH ICER Ot Z89.512 ACQUIRED ABSENCE OF LEFT LEG BELOW KNEE 12/29/2019 DEDRA, MARQUIS R FISH ICER Ot B36.9 SUPERFICIAL MYCOSIS, UNSPECIFIED 12/29/2019 DEDRA, MARQUIS R FISH ICER Ot L03.116 CELLULITIS OF LEFT LOWER LIMB 12/29/2019 DEDRA, MARQUIS R FISH ICER Ot L97.122 NON-PRESSURE CHRONIC ULCER OF LEFT THIGH 12/29/2019 DEDRA, MARQUIS R FISH ICER Ot Z89.512 ACQUIRED ABSENCE OF LEFT LEG BELOW KNEE 12/29/2019 DEDRA, MARQUIS R FISH ICER Ot B36.9 SUPERFICIAL MYCOSIS, UNSPECIFIED 12/29/2019 DEDRA, MARQUIS R FISH ICER Ot L03.116 CELLULITIS OF LEFT LOWER LIMB 12/29/2019 DEDRA, MARQUIS R FISH ICER Ot L97.122 NON-PRESSURE CHRONIC ULCER OF LEFT THIGH 12/29/2019 DEDRA, MARQUIS R FISH ICER Ot Z89.512 ACQUIRED ABSENCE OF LEFT LEG BELOW KNEE 12/29/2019 DEDRA, MARQUIS R FISH ICER Ot B36.9 SUPERFICIAL MYCOSIS, UNSPECIFIED 12/29/2019 DEDRA, MARQUIS R FISH ICER Ot L03.116 CELLULITIS OF LEFT LOWER LIMB 12/29/2019 DEDRA, MARQUIS R FISH ICER Ot L97.122 NON-PRESSURE CHRONIC ULCER OF LEFT THIGH 12/29/2019 DEDRA, MARQUIS R FISH ICER Ot Z89.512 ACQUIRED ABSENCE OF LEFT LEG BELOW KNEE 12/29/2019 DEDRA, MARQUIS R FISH ICER Ot B36.9 SUPERFICIAL MYCOSIS, UNSPECIFIED 12/29/2019 DEDRA, MARQUIS R FISH ICER Ot L03.116 CELLULITIS OF LEFT LOWER LIMB 12/29/2019 DEDRA, MARQUIS R FISH ICER Ot L97.122 NON-PRESSURE CHRONIC ULCER OF LEFT THIGH 12/29/2019 DEDRA, MARQUIS R FISH ICER Ot Z89.512 ACQUIRED ABSENCE OF LEFT LEG BELOW KNEE 12/29/2019 DEDRA, MARQUIS R FISH ICER Ot B36.9 SUPERFICIAL MYCOSIS, UNSPECIFIED 12/29/2019 DEDRA, MARQUIS R FISH ICER Ot L03.116 CELLULITIS OF LEFT LOWER LIMB 12/29/2019 DEDRA, MARQUIS R FISH ICER Ot L97.122 NON-PRESSURE CHRONIC ULCER OF LEFT THIGH 12/29/2019 DEDRA, MARQUIS R FISH ICER Ot Z89.512 ACQUIRED ABSENCE OF LEFT LEG BELOW KNEE 12/29/2019 DEDRA, MARQUIS R FISH ICER Ot B36.9 SUPERFICIAL MYCOSIS, UNSPECIFIED 12/29/2019 DEDRA MARQUIS R FISH ICER Ot L03.116 CELLULITIS OF LEFT LOWER LIMB 12/29/2019 DEDRA MARQUIS R FISH ICER Ot L97.121 NON-PRS CHRONIC ULCER OF LEFT THIGH LIMI 12/29/2019 DEDRA MARQUIS R FISH ICER Ot L97.122 NON-PRESSURE CHRONIC ULCER OF LEFT THIGH 12/29/2019 DEDRA MARQUIS R FISH ICER Ot Z89.512 ACQUIRED ABSENCE OF LEFT LEG BELOW KNEE 12/29/2019 DEDRA MARQUIS R FISH ICER Ot B36.9 SUPERFICIAL MYCOSIS, UNSPECIFIED 12/29/2019 DEDRA MARQUIS R FISH ICER Ot L03.116 CELLULITIS OF LEFT LOWER LIMB 12/29/2019 DEDRA MARQUIS R FISH ICER Ot L97.121 NON-PRS CHRONIC ULCER OF LEFT THIGH LIMI 12/29/2019 DEDRA MARQUIS R FISH ICER Ot L97.122 NON-PRESSURE CHRONIC ULCER OF LEFT THIGH 12/29/2019 PASCUAL COLMENARESN R FISH ICER Ot Z89.512 ACQUIRED ABSENCE OF LEFT LEG BELOW KNEE 12/29/2019 DEDRA MARQUIS R FISH ICER Ot B36.9 SUPERFICIAL MYCOSIS, UNSPECIFIED 12/29/2019 DEDRA MARQUIS R FISH ICER Ot L03.116 CELLULITIS OF LEFT LOWER LIMB 12/29/2019 PASCUAL COLMENARESN R FISH ICER Ot L97.121 NON-PRS CHRONIC ULCER OF LEFT THIGH LIMI 12/29/2019 DEDRA MARQUIS R FISH ICER Ot L97.122 NON-PRESSURE CHRONIC ULCER OF LEFT THIGH 12/29/2019 PASCUAL COLMENARESN R FISH ICER Ot Z89.512 ACQUIRED ABSENCE OF LEFT LEG BELOW KNEE 12/29/2019 MARQUIS COLMENARES R FISH ICER Ot B36.9 SUPERFICIAL MYCOSIS, UNSPECIFIED 12/29/2019 DEDRA MARQUIS R FISH ICER Ot L03.116 CELLULITIS OF LEFT LOWER LIMB 12/29/2019 DEDRA MARQUIS R FISH ICER Ot L97.121 NON-PRS CHRONIC ULCER OF LEFT THIGH LIMI 12/29/2019 DEDRA MARQUIS R FISH ICER Ot Z89.512 ACQUIRED ABSENCE OF LEFT LEG BELOW KNEE 12/29/2019 DEDRA MARQUIS R FISH ICER Ot B36.9 SUPERFICIAL MYCOSIS, UNSPECIFIED 12/29/2019 DEDRA MARQUIS R FISH ICER Ot L03.116 CELLULITIS OF LEFT LOWER LIMB 12/29/2019 MARQUIS COLMENARES FISH ICER Ot L97.121 NON-PRS CHRONIC ULCER OF LEFT THIGH LIMI 12/29/2019 MARQUIS COLMENARES R FISH ICER Ot Z89.512 ACQUIRED ABSENCE OF LEFT LEG BELOW KNEE 12/29/2019 MARQUIS COLMENARES R FISH ICER Ot B36.9 SUPERFICIAL MYCOSIS, UNSPECIFIED 12/29/2019 MARQUIS COLMENARES R FISH ICER Ot L03.116 CELLULITIS OF LEFT LOWER LIMB 12/29/2019 MARQUIS COLMENARES R FISH ICER Ot L97.122 NON-PRESSURE CHRONIC ULCER OF LEFT THIGH 12/29/2019 DEDRA MARQUIS R FISH ICER Ot Z89.512 ACQUIRED ABSENCE OF LEFT LEG BELOW KNEE 12/29/2019 MARQUIS COLMENARES FISH ICER Ot Z51.81 ENCOUNTER FOR THERAPEUTIC DRUG LEVEL MON 12/29/2019 MARQUIS COLMENARES FISH ICER Ot 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 12/29/2019 KIANNA PERES MD, Ot E11.622 TYPE 2 DIABETES MELLITUS WITH OTHER SKIN 12/29/2019 KIANNA PERES MD, Ot 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 12/29/2019 [...] ABSENCE OF LEFT LEG BELOW KNEE 12/29/2019 KIANAN PERES MD, Ot E11.622 TYPE 2 DIABETES [...] MALIGNANT NEOPLASM OF 12/30/2019 DEDRA, MARQUIS R FISH ICER Ot L03.116 CELLULITIS OF LEFT LOWER LIMB 12/30/2019 DEDRA MARQUIS R FISH ICER Ot Z89.512 ACQUIRED ABSENCE OF LEFT LEG BELOW KNEE 12/30/2019 DEDRA, MARQUIS R FISH ICER Ot B36.9 SUPERFICIAL MYCOSIS, UNSPECIFIED 12/30/2019 DEDRA, MARQUIS R FISH ICER Ot L03.116 CELLULITIS OF LEFT LOWER LIMB 12/30/2019 DEDRA, MARQUIS R FISH ICER Ot L97.122 NON-PRESSURE CHRONIC ULCER OF LEFT THIGH 12/30/2019 DEDRA, MARQUIS R FISH ICER Ot Z89.512 ACQUIRED ABSENCE OF LEFT LEG BELOW KNEE 12/30/2019 DEDRA, MARQUIS R FISH ICER Ot B36.9 SUPERFICIAL MYCOSIS, UNSPECIFIED 12/30/2019 DEDRA, MARQUIS R FISH ICER Ot L03.116 CELLULITIS OF LEFT LOWER LIMB 12/30/2019 DEDRA, MARQUIS R FISH ICER Ot L97.122 NON-PRESSURE CHRONIC ULCER OF LEFT THIGH 12/30/2019 DEDRA, MARQUIS R FISH ICER Ot Z89.512 ACQUIRED ABSENCE OF LEFT LEG BELOW KNEE 12/30/2019 DEDRA, MARQUIS R FISH ICER Ot B36.9 SUPERFICIAL MYCOSIS, UNSPECIFIED 12/30/2019 DEDRA, MARQUIS R FISH ICER Ot L03.116 CELLULITIS OF LEFT LOWER LIMB 12/30/2019 DEDRA, MARQUIS R FISH ICER Ot L97.122 NON-PRESSURE CHRONIC ULCER OF LEFT THIGH 12/30/2019 DEDRA, MARQUIS R FISH ICER Ot Z89.512 ACQUIRED ABSENCE OF LEFT LEG BELOW KNEE 12/30/2019 DEDRA, MARQUIS R FISH ICER Ot B36.9 SUPERFICIAL MYCOSIS, UNSPECIFIED 12/30/2019 DEDRA, MARQUIS R FISH ICER Ot L03.116 CELLULITIS OF LEFT LOWER LIMB 12/30/2019 DEDRA, MARQUIS R FISH ICER Ot L97.122 NON-PRESSURE CHRONIC ULCER OF LEFT THIGH 12/30/2019 DEDRA, MARQUIS R FISH ICER Ot Z89.512 ACQUIRED ABSENCE OF LEFT LEG BELOW KNEE 12/30/2019 DEDRA, MARQUIS R FISH ICER Ot B36.9 SUPERFICIAL MYCOSIS, UNSPECIFIED 12/30/2019 DEDRA, MARQUIS R FISH ICER Ot L03.116 CELLULITIS OF LEFT LOWER LIMB 12/30/2019 DEDRA, MARQUIS R FISH ICER Ot L97.122 NON-PRESSURE CHRONIC ULCER OF LEFT THIGH 12/30/2019 DEDRA, MARQUIS R FISH ICER Ot Z89.512 ACQUIRED ABSENCE OF LEFT LEG BELOW KNEE 12/30/2019 DEDRA, MARQUIS R FISH ICER Ot B36.9 SUPERFICIAL MYCOSIS, UNSPECIFIED 12/30/2019 DEDRA, MARQUIS R FISH ICER Ot L03.116 CELLULITIS OF LEFT LOWER LIMB 12/30/2019 DEDRA, MARQUIS R FISH ICER Ot L97.121 NON-PRS CHRONIC ULCER OF LEFT THIGH LIMI 12/30/2019 DEDRA, MARQUIS R FISH ICER Ot L97.122 NON-PRESSURE CHRONIC ULCER OF LEFT THIGH 12/30/2019 DEDRA, MARQUIS R FISH ICER Ot Z89.512 ACQUIRED ABSENCE OF LEFT LEG BELOW KNEE 12/30/2019 DEDRA, MARQUIS R FISH ICER Ot B36.9 SUPERFICIAL MYCOSIS, UNSPECIFIED 12/30/2019 DEDRA, MARQUIS R FISH ICER Ot L03.116 CELLULITIS OF LEFT LOWER LIMB 12/30/2019 DEDRA, MARQUIS R FISH ICER Ot L97.121 NON-PRS CHRONIC ULCER OF LEFT THIGH LIMI 12/30/2019 DEDRA, MARQUIS R FISH ICER Ot L97.122 NON-PRESSURE CHRONIC ULCER OF LEFT THIGH 12/30/2019 DEDRA, MARQUIS R FISH ICER Ot Z89.512 ACQUIRED ABSENCE OF LEFT LEG BELOW KNEE 12/30/2019 DEDRA, MARQUIS R FISH ICER Ot B36.9 SUPERFICIAL MYCOSIS, UNSPECIFIED 12/30/2019 DEDRA, MARQUIS R FISH ICER Ot L03.116 CELLULITIS OF LEFT LOWER LIMB 12/30/2019 DEDRA, MARQUIS R FISH ICER Ot L97.121 NON-PRS CHRONIC ULCER OF LEFT THIGH LIMI 12/30/2019 DEDRA, MARQUIS R FISH ICER Ot L97.122 NON-PRESSURE CHRONIC ULCER OF LEFT THIGH 12/30/2019 DEDRA, MARQUIS R FISH ICER Ot Z89.512 ACQUIRED ABSENCE OF LEFT LEG BELOW KNEE 12/30/2019 DEDRA, MARQUIS R FISH ICER Ot B36.9 SUPERFICIAL MYCOSIS, UNSPECIFIED 12/30/2019 DERDA, MARQUIS R FISH ICER Ot L03.116 CELLULITIS OF LEFT LOWER LIMB 12/30/2019 DEDRA MARQUIS R FISH ICER Ot L97.121 NON-PRS CHRONIC ULCER OF LEFT THIGH LIMI 12/30/2019 DEDRA MARQUIS R FISH ICER Ot Z89.512 ACQUIRED ABSENCE OF LEFT LEG BELOW KNEE 12/30/2019 DEDRA MARQUIS R FISH ICER Ot B36.9 SUPERFICIAL MYCOSIS, UNSPECIFIED 12/30/2019 DEDRA, MARQUIS R FISH ICER Ot L03.116 CELLULITIS OF LEFT LOWER LIMB 12/30/2019 DEDRA, MARQUIS R FISH ICER Ot L97.121 NON-PRS CHRONIC ULCER OF LEFT THIGH LIMI 12/30/2019 DEDRA MARQUIS R FISH ICER Ot Z89.512 ACQUIRED ABSENCE OF LEFT LEG BELOW KNEE 12/30/2019 DEDRA MARQUIS R FISH ICER Ot B36.9 SUPERFICIAL MYCOSIS, UNSPECIFIED 12/30/2019 DEDRA, MARQUIS R FISH ICER Ot L03.116 CELLULITIS OF LEFT LOWER LIMB 12/30/2019 DEDRA, MARQUIS R FISH ICER Ot L97.122 NON-PRESSURE CHRONIC ULCER OF LEFT THIGH 12/30/2019 DEDRA MARQUIS R FISH ICER Ot Z89.512 ACQUIRED ABSENCE OF LEFT LEG BELOW KNEE 12/30/2019 DEDRA MARQUIS R FISH ICER Ot Z51.81 ENCOUNTER FOR THERAPEUTIC DRUG LEVEL MON 12/30/2019 DEDRA MARQUIS R FISH ICER Ot 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 12/30/2019 KIANNA PERES MD, Ot E11.622 TYPE 2 DIABETES MELLITUS WITH OTHER SKIN 12/30/2019 KIANNA PERES MD, Ot 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 9 MALIGNANT NEOPLASM OF COLON, UNSPECIFIED 12/31/2019 [facility] N40. 0 BENIGN PROSTATIC HYPERPLASIA WITHOUT LOW 12/31/2019 [facility] Z01.818 ENCOUNTER FOR OTHER PREPROCEDURAL EXAMIN Procedures Code Description Performed By Per formed On 0HBLXZX EX CISION OF LEFT LOWER LEG SKIN, EXTERNA 11/07/2017 [id number] EX CISION OF SIGMOID COLON, OPEN APPROACH 08/28/2019 [id number] IN SERTION OF OTHER DEVICE INTO URETER, O 08/28/2019 [id number] RE PAIR LEFT URETER, OPEN APPROACH 08/28/2019 [id number] RE LEASE SMALL INTESTINE, OPEN APPROACH 09/05/[id number] DILLARD OF PERITONEAL CAVITY, OPEN APPR 09/05/2019 [id number] RE SPIRATORY VENTILATION, 24- 96 CONSECUTI 09/05/2019 [...] Bacteria identification in isolate by anaerobe culture [id number] NRG Gram stain microscopy - 11/08/17 17:30 GRAM STAIN RESULT OBSERVED NRG Bacteria identification in wound by cult ure - 11/08/17 17:30 Bacteria identification in wound by culture SEE RE PORT NRG FREE TEXT EXTERNAL SEE FUNGUS CULTURE REPORT NRG QUANTITY OF GROWTH . [facility] FREE TEXT ENTRY 2 ON THIS ORGAISM. [facility] Bacterial susceptibility panel - 8 [...] ed for a preliminary negative culture report. [facility] Bacterial susceptibility panel - 8 [...] Bacteria identification in isolate by anaerobe culture [facility] Gram stain microscopy - 11/22/17 14:38 GRAM STAIN RESULT NO BACTERIA NR Bacteria identification in wound by cult ure - 11/22/17 14:38 Bacteria identification in wound by culture [id number] NRG FREE TEXT EXTERNAL FROM THIO [...] 09:39 Bacteria identification in wound by culture [id number] NRG FREE TEXT EXTERNAL SENSITIVITY REPORTED [...] NRG FTX;REPORTABLE UNLESS REQUESTED NRG Fungus culture [id number] NRG IDENTIFICATION TO FOLLOW NO FURTHER STUDIES [...] 10:30 Bacteria identification in wound by culture [id number] NRG FREE TEXT EXTERNAL SUSCEPTIBILITY REPORTED [...] 10:07 Bacteria identification in wound by culture [id number] NRG FREE TEXT EXTERNAL NO SUSCEPTIBLILTY [...] 7-25 CREATININE 0.73 mg/dL 0.70-1.18 eGFR NON-AFR. [facility] 92 mL/min/1.73m2 > OR = 60 eGFR [...] 0.0-0.1 Blood type T Indirect antibody screen [facility] - 08/18/19 14:30 ABO+Rh group AP NRG Blood group antibody screen NEGATIVE NR G Capillary blood glucose measurement by g lucometer (mass/volume) - 08/28/19 10:17 Capillary blood glucose measurement by glucometer (mas s/volume) 109 mg/dL 70-110 Blood type T Indirect antibody screen [facility] - 08/28/19 10:25 WRISTBAND NUMBER [id number] NRG ABO+Rh group AP NRG Blood group [...] [facility] - 09/05/19 14:22 WRISTBAND NUMBER [id number] NRG ABO+Rh group AP NRG Blood group antibody screen NEGATIVE NR G Bacteria identification in isolate by an aerobe culture - 09/05/19 15:00 Bacteria identification in isolate by anaerobe culture NOANA NRG Gram stain microscopy - 09/05/19 15:00 Gram stain microscopy No bacteria seen NRG Bacteria identification in wound by cult ure - 09/05/19 15:00 Bacteria identification in wound by culture [id number] NRG FREE TEXT EXTERNAL SUSCEPTIBILITY REPORTED 09-08-191724 [...] EXTERNAL PRELIM RAPID ID TEST AT [facility] 09/08 NRG QUANTITY OF GROWTH . NRG [...] 7-25 CREATININE 0.74 mg/dL 0.70-1.18 eGFR NON-AFR. [facility] 92 mL/min/1.73m2 > OR = 60 eGFR [...] aureus (MRSA) scr eening culture NEG NRG Blood type T Indirect antibody screen [facility] - 01/02/20 11:03 WRISTBAND NUMBER [id number] NRG ABO+Rh group AP NRG Blood group antibody screen NEGATIVE NR G Capillary blood glucose measurement by g lucometer (mass/volume) - 01/02/20 11:06 Capillary blood glucose measurement by glucometer (mas s/volume) 122 mg/dL 70-110 Methicillin resistant Staphylococcus aur eus (MRSA) screening culture - 01/02/20 17:30 Methicillin resistant Staphylococcus aureus (MRSA) scr eening culture NEG NRG Capillary blood glucose measurement by g lucometer (mass/volume) - 01/03/20 11:12 Capillary blood glucose measurement by glucometer (mas s/volume) 233 mg/dL 70-110 Encounters ACCT No. Visit Date/Time Discharge Status Pt. Type Provider Facility Loc./Unit Complaint [id number] 10/16/2019 10:40:00 10/16/2019 23:59: 59 CLS Outpatient KIANNA BARAJAS APRN [facility] [id number] 12/04/2019 09:40:00 Document Registration [id number] 10/16/2019 10:40:00 Document Registration [id number] 07/30/2019 14:40:00 Document Registration [id number] 07/14/2019 10:00:00 Document Registration [id number] 04/03/2019 10:20:00 Document Registration [id number] 03/28/2019 09:00:00 Document Registration [id number] 12/25/2018 10:20:00 Document Registration [id number] 10/30/2017 10:40:00 Document Registration [id number] 12/12/2019 14:39:00 020 00:01:00 DIS Outpatient SCOTT LEI MD [facility] ONC [id number] 12/29/2019 12:33:00 020 16:18:00 DIS Outpatient GALO GRIFFIN DO [facility] PREOP COLON CANCER [id number] 12/18/2019 22:43:00 00:30:00 DIS Emergency BRET ARREDONDO MD [facility] ER UNABLE TO URINATE,BUDDY TER PROBLEMS [id number] 11/21/2019 00:59:00 02:09:00 DIS Emergency BRET ARREDONDO MD [facility] ER CATHETER TAKEN OUT IN A .M.,CAN'T URINATE [id number] 11/17/2019 11:45:00 23:59:59 CLS Preadmit SCOTT LEI MD [facility] RAD COLON CA [id number] 11/17/2019 10:54:00 23:59:59 CLS Outpatient SCOTT LEI MD, V [facility] 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 [id number] 11/13/2019 08:00:00 23:59:59 CLS Preadmit GALO GRIFFIN DO [facility] SDC COLON CANCER [id number] 11/12/2019 15:19:00 18:06:00 DIS Emergency BRET ARREDONDO MD [facility] ER RENAL FAILURE [id number] 11/11/2019 05:41:00 12:56:00 DIS Outpatient GALO GRIFFIN DO [facility] PREOP COLON CANCER [id number] 11/07/2019 09:57:00 23:59:59 CLS Outpatient HONG DUKES MD [facility] RAD LT URETERAL LACERATION [id number] 10/28/2019 13:40:00 23:59:59 CLS Preadmit GALO GRIFFIN DO [facility] ENDO HX OF COLON CA [id number] 10/21/2019 05:38:00 23:59:59 CLS Outpatient GALO GRIFFIN DO [facility] PREOP COLONOSCOPY [id number] 10/17/2019 10:52:00 23:59:59 CLS Outpatient HONG DUKES MD [facility] RAD LT URETERAL LACERATION [id number] 08/28/2019 09:45:00 17:10:00 DIS Inpatient GALO GRIFFIN DO [facility] 4TH COLON CANCER [id number] 08/18/2019 14:04:00 14:38:00 DIS Outpatient GALO GRIFFIN DO [facility] PREOP COLON CANCER [id number] 08/11/2019 14:44:00 23:59:59 CLS Outpatient GALO GRIFFIN DO [facility] RAD COLON CA [id number] 02/12/2019 09:35:00 23:59:59 CLS Outpatient KIANNA PERES MD [facility] WOUNDCARE [id number] 02/05/2019 12:43:00 23:59:59 CLS Outpatient KIANNA PERES MD [facility] WOUNDCARE [id number] 01/29/2019 09:38:00 23:59:59 CLS Outpatient KIANNA PERES MD [facility] WOUNDCARE [id number] 01/22/2019 09:26:00 23:59:59 CLS Outpatient KIANNA PERES MD [facility] WOUNDCARE [id number] 01/15/2019 09:44:00 23:59:59 CLS Outpatient KIANNA PERES MD [facility] WOUNDCARE [id number] 2019 08:40:00 23:59:59 CLS Outpatient KIANNA PERES MD [facility] WOUNDCARE [id number] 03/05/2018 00:09:00 23:59:59 CLS Preadmit MARQUIS COLMENARES APRN [facility] LAB [id number] 12/25/2017 10:53:00 07/16/2 018 00:01:00 DIS Outpatient DEDRA, MARQUIS R FISH ICER [facility] LAB [id number] 01/22/2018 08:44:00 018 23:59:59 CLS Outpatient DEDRA, MARQUIS R FISH ICER [facility] WOUNDCARE [id number] 01/15/2018 08:58:00 018 23:59:59 CLS Outpatient DEDRA, MARQUIS R FISH ICER [facility] WOUNDCARE [id number] 01/08/2018 08:41:00 018 23:59:59 CLS Outpatient DEDRA, MARQUIS R FISH ICER [facility] WOUNDCARE [id number] 01/01/2018 08:38:00 018 23:59:59 CLS Outpatient DEDRA, MARQUIS R FISH ICER [facility] WOUNDCARE [id number] 12/25/2017 10:09:00 018 23:59:59 CLS Outpatient DEDRA, MARQUIS R FISH ICER [facility] WOUNDCARE [id number] 12/17/2017 12:40:00 018 23:59:59 CLS Outpatient DEDRA, MARQUIS R FISH ICER [facility] WOUNDCARE [id number] 12/11/2017 09:27:00 018 23:59:59 CLS Outpatient DEDRA, MARQUIS R FISH ICER [facility] WOUNDCARE [id number] 12/04/2017 09:53:00 018 23:59:59 CLS Outpatient DEDRA, MARQUIS R FISH ICER [facility] WOUNDCARE [id number] 11/27/2017 10:01:00 018 23:59:59 CLS Outpatient DEDRA, MARQUIS R FISH ICER [facility] WOUNDCARE [id number] 11/22/2017 14:01:00 018 23:59:59 CLS Outpatient DEDRA, MARQUIS R FISH ICER [facility] WOUNDCARE [id number] 11/13/2017 10:49:00 018 23:59:59 CLS Outpatient MARQUIS COLMENARES APRN [facility] WOUNDCARE [id number] 11/06/2017 13:00:00 018 16:21:00 DIS Inpatient BERNARD PAYTON DO [facility] 4TH BILAT LE CELLUL ITIS [id number] 11/06/2017 08:54:00 23:59:59 CLS Outpatient MARQUIS COLMENARES APRN [facility] WOUNDCARE [id number] 01/02/2020 10:45:[address] Outpatient GALO GRIFFIN DO [facility] 4TH COLON CANCER
--- NOTE | 2020-01-03 15:13 | NUR ---
PTS NIECE, RAZA COY, CALLED THIS NURSE VENETIAN BLIND CLEANER AND REPAIRER BACK AND WAS INFORMED OF PTS STATUS PER PTS REQUEST. RAZA COY SAID SHE WOULD CALL AGAIN BEFORE THIS RN LEFT FOR THE NIGHT AND IN THE MORNING.
[2020-01-03] MEDS: BETHANECHOL 25 MG (URECHOLINE) TAB PO SCH ×2 (17:19→20:08)
--- NOTE | 2020-01-03 18:08 | NUR ---
THIS AFTERNOON PT HAS HAD STRAIGHT CATH 3 TIMES. EACH TIME BLADDER SCAN SHOWED OVER 600 ML AND THE STRAIGHT CATH PREFORMED BY THIS RN PRODUCED 600 ML, 800 ML AND 700 ML OF URINE EACH TIME. URINE WAS BRIGHT, PARADA RED AT FIRST AND IS STARTING TO LIGHTEN, TO A DARKER RED/ORANGE COLOR.
--- NOTE | 2020-01-03 19:36 | NUR ---
THIS NURSE QUANTOMETER OPERATOR ATTEMPTED TO CALL DR DUKES TWICE TO CELL PHONE AND HOME NUMBER. TEXT AND VOICEMAIL LEFT ON CELL PHONE. TEXT SENT TO DR DUKES INFORMED HIM OF THE MULTIPLE TIMES THAT THIS RN HAS STRAIGHT CATHED HIM AND THE AMOUNT OF URINE VOIDED. RN WANTED TO CLARIFY BEFORE SHE LEFT THAT DR WANTED TO CONTINUE TO BLADDER SCAN AND STRAIGHT CATH THAT FREQUENTLY OR IF HE WANTED PT TO HAVE CODY. BY 1929 THERE WAS NO ANSWER VIA TEXT OR CELL. CHURCH WORKER, RENETTA, WAS NOTIFIED PRIOR TO RN'S ATTEMPT AT CONTACTING DR DUKES AND AFTERWARDS, WHEN UNSUCCESSFULLY REACHING HIM. RENETTA ADVISED TO PASS ON ALL INFO TO RN TAKING OVER, WHICH THIS QUANTOMETER OPERATOR DID. GUERO BAE RN GIVEN REPORT ABOUT PT AND INFO ON ATTEMPTS TO CONTACT DR DUKES AT APPROX 191.
--- NOTE | 2020-01-03 21:15 | NUR ---
DR. DUKES CALLED AGAIN WITH NO RESPONSE. DISPLAY DECORATOR CALLED AND GOT A HOLD OF DR. DUKES ABOUT PT NEEDED TO BE STRAIGHT CATHED AGAIN FOR URINE RETENTION OF 660ML PER BLADDER SCAN. NEW ORDERS RECEIVED TO PLACE CODY CATHETER. CATHETER PLACE USING STERILE TECHNIQUE AND GOT OUT 425ML OF DARK BLOODY URINE. PT TOLERATED PROCEDURE WELL. WILL CONTINUE TO MONITOR.
[2020-01-03] MEDS ORDERED: LIDOCAINE UROJET 2% GEL 10 ML PKG TOP PRN (21:30)
[2020-01-04 03:40] VITALS: BP 122/72
[2020-01-04] MEDS: BETHANECHOL 25 MG (URECHOLINE) TAB PO SCH ×4 (06:16→21:19)
[2020-01-04 08:29] VITALS: BP 120/58
[2020-01-04] MEDS: DOCUSATE SODIUM 100 MG (COLACE) CAP PO SCH ×2 (09:51→21:19)
[2020-01-04] MEDS: lisINopril 20 MG (PRINIVIL) TABLET PO SCH (11:11)
--- NOTE | 2020-01-04 11:55 | NUR ---
DR DUKES CALLED RN AT APPROX [phone] TO GET REPORT ON PT. HE ORDERED BLADDER IRRIGATION VIA INDWELLING CATH. PT TOLERATED WELL. THERE WAS SMALL BLOOD CLOTS ON RETURN. STERILE WATER USED ALONG WITH IRRIGATION KIT. PT HAD 2 MELIDA TO LOWER LEFT QUAD OF ABDOMEN FROM PRIOR SURGERY IN SEPTEMBER 2019. DR GRIFFIN GAVE ORDER TO REMOVE THE TWO MELIDA. THIS NURSE RIGGING LOFT REPAIRER USED STAPLE REMOVAL KIT, CLEANED AREA WITH ALCOHOL AND REMOVED MELIDA WITH NO DIFFICULTY. PT TOLERATED WELL. THERE WAS NO DISCHARGE FROM AREA.
[2020-01-04 12:30] VITALS: BP 135/72
[2020-01-04 15:30] VITALS: BP_SYST 122; BP_SYST 134; BP_DIAS 66; BP_DIAS 72
[2020-01-04 19:56] VITALS: BP 120/70
[2020-01-04] MEDS: SIMvastatin 20 MG (ZOCOR) TAB PO SCH (21:19)
[2020-01-05] VITALS: BP 122/72
[2020-01-05 04:25] VITALS: BP 115/57
[2020-01-05] MEDS: BETHANECHOL 25 MG (URECHOLINE) TAB PO SCH ×4 (05:39→21:04)
[2020-01-05 07:40] VITALS: BP 129/62
[2020-01-05] MEDS: DOCUSATE SODIUM 100 MG (COLACE) CAP PO SCH ×2 (09:01→20:55)
[2020-01-05] MEDS: lisINopril 20 MG (PRINIVIL) TABLET PO SCH (09:01)
--- NOTE | 2020-01-05 10:11 | Progress Note - Urology ---
Progress Note-Urology Progress Notes/Assess & Plan Progress/Assessment & Plan URINE CLEAR. TOLERATES URECHOLINE WELL. TOV TODAY Final Diagnosis BPH AND URINE RETENTION HONG DUKES MD January 05, 2020 10:11
--- NOTE | 2020-01-05 11:10 | NUR ---
CODY REMOVED, PAYTON WELL, PINK COLOR URINE, URINAL AT BEDSIDE
[2020-01-05 12:00] VITALS: BP_SYST 101; BP_SYST 106; BP_DIAS 58; BP_DIAS 63
[2020-01-05 15:20] VITALS: BP 142/61
--- NOTE | 2020-01-05 16:22 | NUR ---
Pt [facility]. He lives with his niece and [place] Pt states he's had two rounds of chemotherapy and despite some mild side effects he's done alright and able to stay active. Will follow for any continued care needs.
--- NOTE | 2020-01-05 16:50 | NUR ---
voided 150ml yellow color urine, three glass urine test started, bladder scan done with 225ml results
[2020-01-05 20:00] VITALS: BP 118/69
[2020-01-05] MEDS: SIMvastatin 20 MG (ZOCOR) TAB PO SCH (21:04)
[2020-01-06 00:15] VITALS: BP 121/58
[2020-01-06] MEDS: BETHANECHOL 25 MG (URECHOLINE) TAB PO SCH ×2 (06:02→12:22)
[2020-01-06 07:43] VITALS: BP 119/71
[2020-01-06] MEDS: lisINopril 20 MG (PRINIVIL) TABLET PO SCH (09:09)
[2020-01-06] MEDS: DOCUSATE SODIUM 100 MG (COLACE) CAP PO SCH (09:10)
--- NOTE | 2020-01-06 09:49 | Progress Note - Urology ---
Progress Note-Urology Progress Notes/Assess & Plan Progress/Assessment & Plan DOING WELL. VOIDING WELL. PVR 53CC. URINE YELLOW CLEAR. CONTINENT. HOME WITH INSTRUCTIONS Final Diagnosis URINE RETENTION HONG DUKES MD January 06, 2020 09:49
--- NOTE | 2020-01-06 09:52 | Discharge Inst-Urology ---
Discharge Inst-Urology Reconcile Patient Problems Problems Reviewed?: Yes Final Diagnosis URINE RETENTION Patient Instructions/Follow Up Plan/Assessment/Instructions Please make appointment to been seen in office in 2 weeks. Rest till then Keep bowels soft and moving Hold ASA, Plavix, Flomax, and Proscar Increase oral fluids for 48 hours and then as needed. Diet as tolerated. If questions or concerns contact your physician Or seek help at emergency department. HONG DUKES MD January 06, 2020 09:52
[2020-01-06 12:50] VITALS: BP 119/71
== END 2020-01-06 12:50 | disposition home or self-care (01) | DRG 713 ==
LOC: SDC 10:45 → 4TH 15:09 → SDC 01-03 13:45 → 4TH 01-03 13:45
PROVIDERS: ADMIT Urology; ATTEND Surgery
PROC: 0VT08ZZ Resection of Prostate, Via Natural or Artificial Opening Endoscopic (ICD-10-PCS; principal; 2020-01-02 12:31)
PROC: 05HM33Z Insertion of Infusion Device into Right Internal Jugular Vein, Percutaneous Approach (ICD-10-PCS; 2020-01-02 12:31)
DX: N40.1 Benign prostatic hyperplasia with lower urinary tract symptoms (principal); R33.8 Other retention of urine; C18.9 Malignant neoplasm of colon, unspecified; I10 Essential (primary) hypertension; E11.9 Type 2 diabetes mellitus without complications; E78.00 Pure hypercholesterolemia, unspecified; Z86.73 Personal history of transient ischemic attack (TIA), and cerebral infarction without residual deficits
CPT/HCPCS: 71045; 82962; 86850; 86900; 86901; 87081; 88305; 94664

== ENCOUNTER 2020-01-08 11:04 | Outpatient (RCR) | payer MEDICARE, OTHER ==
[~2020-01-08] VITALS: Ht 188 cm; Wt 92.5 kg
[~2020-01-08 11:04] MED LIST changes: +D5W 500 ML IV (CANCER CTR) 500 ML IV SCH; +D5W IV SCH; +OXALIPLATIN IV SCH; +PALONOSETRON HCL 0.25 MG, DEXAMETHASONE INJECTION 10 MG in NS (IVPB) CANCER CENTER 50 ML IV SCH
[2020-01-08 11:17] LABS: BASOPHILS % (AUTO) 0 % (0-10); EOSINOPHILS # (AUTO) 0.2 10^3/uL (0.0-0.3); EOSINOPHILS % (AUTO) 3 % (0-10); HEMATOCRIT 30 % (40-54); HEMOGLOBIN 9.7 G/DL (13.3-17.7); LYMPHOCYTES # (AUTO) 0.9 X 10^3 (1.0-4.0); LYMPHOCYTES % (AUTO) 12 % (12-44); MEAN CORPUSCULAR HEMOGLOBIN 28 PG (25-34); MEAN CORPUSCULAR HGB CONC 33 G/DL (32-36); MEAN CORPUSCULAR VOLUME 87 FL (80-99); MONOCYTES % (AUTO) 12 % (0-12); NEUTROPHILS # (AUTO) 5.6 X 10^3 (1.8-7.8); NEUTROPHILS % (AUTO) 73 % (42-75); PLATELET COUNT 376 10^3/uL (130-400); RED CELL DISTRIBUTION WIDTH 23.8 % (10.0-14.5); WHITE BLOOD COUNT 7.7 10^3/uL (4.3-11.0)
[2020-01-08 11:37] LABS: ALANINE AMINOTRANSFERASE 12 U/L (0-55); ALBUMIN 3.8 GM/DL (3.2-4.5); ALKALINE PHOSPHATASE 76 U/L (40-136); BILIRUBIN,TOTAL 0.2 MG/DL (0.1-1.0); BUN/CREATININE RATIO 16; CALCIUM 9.1 MG/DL (8.5-10.1); CARBON DIOXIDE 25 MMOL/L (21-32); CHLORIDE 103 MMOL/L (98-107); GFR ESTIMATED > 60; GLUCOSE 169 MG/DL (70-105); POTASSIUM 4.3 MMOL/L (3.6-5.0); SODIUM 137 MMOL/L (135-145); TOTAL PROTEIN 6.8 GM/DL (6.4-8.2)
[2020-01-08] MEDS ORDERED: D5W IV SCH (12:00)
[2020-01-08] MEDS ORDERED: OXALIPLATIN IV SCH (12:00)
[2020-01-12] MEDS ORDERED: CEPH-507 PO (01:02)
== END 2020-01-15 10:16 | disposition home or self-care (01) ==
LOC: ONC 11:04
PROVIDERS: ATTEND Internal Medicine Hematology & Oncology
DX: Z51.11 Encounter for antineoplastic chemotherapy (principal); C18.7 Malignant neoplasm of sigmoid colon; C77.2 Secondary and unspecified malignant neoplasm of intra-abdominal lymph nodes; I10 Essential (primary) hypertension; E11.9 Type 2 diabetes mellitus without complications; E78.5 Hyperlipidemia, unspecified; M19.90 Unspecified osteoarthritis, unspecified site; E78.00 Pure hypercholesterolemia, unspecified; D63.0 Anemia in neoplastic disease; G45.9 Transient cerebral ischemic attack, unspecified; Z90.49 Acquired absence of other specified parts of digestive tract; Z89.611 Acquired absence of right leg above knee; Z89.612 Acquired absence of left leg above knee
CPT/HCPCS: 36591; 80053; 85025; 96375; 96413; 96415

== ENCOUNTER 2020-01-11 21:46 | Emergency (ER) | payer MEDICARE, OTHER ==
[~2020-01-11] VITALS: Ht 187 cm; Wt 8.9 kg
[~2020-01-11 21:46] MED LIST changes: -D5W 500 ML IV (CANCER CTR) 500 ML IV SCH; -D5W IV SCH; -OXALIPLATIN IV SCH; -PALONOSETRON HCL 0.25 MG, DEXAMETHASONE INJECTION 10 MG in NS (IVPB) CANCER CENTER 50 ML IV SCH
--- OUTSIDE RECORDS SUMMARY | 2020-01-11 21:53 | XMS REPORT | Continuity of Care Document ---
Author Organization Unknown Address Unknown Phone Unavailable Allergies Active Description Code Type Severity Reaction Onset Reported/Identified Relationship to Patient Clinical Status Yes No Known Drug Allergies [id number] Drug Allergy Unknown N/A 11/11/2019 Medications There is no data. Problems Date Dx Coded Attending Type Code Diagnosis Diagnosed By 11/07/2017 MARQUIS COLMENARES APRN Ot L03.116 CELLULITIS OF LEFT LOWER LIMB 11/07/2017 MARQUIS COLMENARES APRN Ot Z89.512 ACQUIRED ABSENCE OF LEFT LEG BELOW KNEE 11/09/2017 [facility] VIDAL Ot E11.9 TYPE 2 DIABETES MELLITUS WITHOUT COMPLIC [facility] Ot E78.00 PURE HYPERCHOLESTEROLEMIA, UNSPECIFIED 11/09/2017 [facility] VIDAL Ot I10 ESSENTIAL (PRIMARY) HYPERTENSION 11/09[facility] Ot L03.115 CELLULITIS OF RIGHT LOWER LIMB [facility] L03.116 CELLULITIS OF LEFT LOWER LIMB 11/09/2017 [facility] VIDAL Ot N40.0 BENIGN PROSTATIC HYPERPLASIA WITHOUT LOW 11/09[facility] Ot T87.43 INFECTION OF AMPUTATION STUMP, RIGHT LOW 11/09/2017 [facility] VIDAL Ot T87.44 INFECTION OF AMPUTATION STUMP, LEFT LOWE 11/09/2017 [facility] Ot Z79.4 WINE MASTER (CURRENT) USE OF INSULIN 11/09/2017 [facility] DO Ot 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 RIGHT LEG BELOW KNEE 11/09/2017 [facility] Urb[facility] DO Ot Z89.512 ACQUIRED ABSENCE OF LEFT LEG BELOW KNEE 11/14/2017 MARQUIS COLMENARES APRN Ot B36.9 SUPERFICIAL MYCOSIS, UNSPECIFIED 11/14/2017 DEDRA, MARQUIS R FIELD TAX AUDITOR Ot L03.116 CELLULITIS OF LEFT LOWER LIMB 11/14/2017 DEDRA MARQUIS R FIELD TAX AUDITOR Ot L97.122 NON-PRESSURE CHRONIC ULCER OF LEFT THIGH 11/14/2017 MARQUIS COLMENARES R FIELD TAX AUDITOR Ot Z89.512 ACQUIRED ABSENCE OF LEFT LEG BELOW KNEE 11/22/2017 DEDRA MARQUIS R FIELD TAX AUDITOR Ot L03.116 CELLULITIS OF LEFT LOWER LIMB 11/22/2017 MARQUIS COLMENARES R FIELD TAX AUDITOR Ot Z89.512 ACQUIRED ABSENCE OF LEFT LEG BELOW KNEE 11/26/2017 MARQUIS COLMENARES R FIELD TAX AUDITOR Ot B36.9 SUPERFICIAL MYCOSIS, UNSPECIFIED 11/26/2017 DEDRA MARQUIS R FIELD TAX AUDITOR Ot L03.116 CELLULITIS OF LEFT LOWER LIMB 11/26/2017 DEDRA MARQUIS R FIELD TAX AUDITOR Ot L97.122 NON-PRESSURE CHRONIC ULCER OF LEFT THIGH 11/26/2017 DEDRA MARQUIS R FIELD TAX AUDITOR Ot Z89.512 ACQUIRED ABSENCE OF LEFT LEG BELOW KNEE 11/26/2017 MARQUIS COLMENARES R FIELD TAX AUDITOR Ot B36.9 SUPERFICIAL MYCOSIS, UNSPECIFIED 11/26/2017 MARQUIS COLMENARES R FIELD TAX AUDITOR Ot L03.116 CELLULITIS OF LEFT LOWER LIMB 11/26/2017 DEDRA MARQUIS R FIELD TAX AUDITOR Ot L97.122 NON-PRESSURE CHRONIC ULCER OF LEFT THIGH 11/26/2017 MARQUIS COLMENARES R FIELD TAX AUDITOR Ot Z89.512 ACQUIRED ABSENCE OF LEFT LEG BELOW KNEE 11/28/2017 MARQUIS COLMENARES R FIELD TAX AUDITOR Ot B36.9 SUPERFICIAL MYCOSIS, UNSPECIFIED 11/28/2017 DEDRA MARQUIS R FIELD TAX AUDITOR Ot L03.116 CELLULITIS OF LEFT LOWER LIMB 11/28/2017 DEDRA MARQUIS R FIELD TAX AUDITOR Ot L97.122 NON-PRESSURE CHRONIC ULCER OF LEFT THIGH 11/28/2017 DEDRA MARQUIS R FIELD TAX AUDITOR Ot Z89.512 ACQUIRED ABSENCE OF LEFT LEG BELOW KNEE 12/04/2017 DEDRA MARQUIS R FIELD TAX AUDITOR Ot L03.116 CELLULITIS OF LEFT LOWER LIMB 12/04/2017 MARQUIS COLMENARES R FIELD TAX AUDITOR Ot Z89.512 ACQUIRED ABSENCE OF LEFT LEG BELOW KNEE 12/05/2017 MARQUIS COLMENARES R FIELD TAX AUDITOR Ot B36.9 SUPERFICIAL MYCOSIS, UNSPECIFIED 12/05/2017 MARQUIS COLMENARES R FIELD TAX AUDITOR Ot L03.116 CELLULITIS OF LEFT LOWER LIMB 12/05/2017 DEDRA, MARQUIS R FIELD TAX AUDITOR Ot L97.122 NON-PRESSURE CHRONIC ULCER OF LEFT THIGH 12/05/2017 DEDRA MARQUIS R FIELD TAX AUDITOR Ot Z89.512 ACQUIRED ABSENCE OF LEFT LEG BELOW KNEE 12/12/2017 MARQUIS COLMENARES R FIELD TAX AUDITOR Ot B36.9 SUPERFICIAL MYCOSIS, UNSPECIFIED 12/12/2017 DEDRA MARQUIS R FIELD TAX AUDITOR Ot L03.116 CELLULITIS OF LEFT LOWER LIMB 12/12/2017 DEDRA MARQUIS R FIELD TAX AUDITOR Ot L97.122 NON-PRESSURE CHRONIC ULCER OF LEFT THIGH 12/12/2017 MARQUIS COLMENARES R FIELD TAX AUDITOR Ot Z89.512 ACQUIRED ABSENCE OF LEFT LEG BELOW KNEE 12/18/2017 MARQUIS COLMENARES R FIELD TAX AUDITOR Ot B36.9 SUPERFICIAL MYCOSIS, UNSPECIFIED 12/18/2017 DEDRAMARQUIS R FIELD TAX AUDITOR Ot L03.116 CELLULITIS OF LEFT LOWER LIMB 12/18/2017 DEDRA MARQUIS R FIELD TAX AUDITOR Ot L97.121 NON-PRS CHRONIC ULCER OF LEFT THIGH LIMI 12/18/2017 DEDRA MARQUIS R FIELD TAX AUDITOR Ot L97.122 NON-PRESSURE CHRONIC ULCER OF LEFT THIGH 12/18/2017 MARQUIS COLMENARES R FIELD TAX AUDITOR Ot Z89.512 ACQUIRED ABSENCE OF LEFT LEG BELOW KNEE 12/18/2017 MARQUIS COLMENARES R FIELD TAX AUDITOR Ot B36.9 SUPERFICIAL MYCOSIS, UNSPECIFIED 12/18/2017 MARQUIS COLMENARES R FIELD TAX AUDITOR Ot L03.116 CELLULITIS OF LEFT LOWER LIMB 12/18/2017 DEDRA MARQUIS R FIELD TAX AUDITOR Ot L97.122 NON-PRESSURE CHRONIC ULCER OF LEFT THIGH 12/18/2017 MARQUIS COLMENARES R FIELD TAX AUDITOR Ot Z89.512 ACQUIRED ABSENCE OF LEFT LEG BELOW KNEE 12/20/2017 MARQUIS COLMENARES R FIELD TAX AUDITOR Ot B36.9 SUPERFICIAL MYCOSIS, UNSPECIFIED 12/20/2017 DEDRA MARQUIS R FIELD TAX AUDITOR Ot L03.116 CELLULITIS OF LEFT LOWER LIMB 12/20/2017 DEDRA MARQUIS R FIELD TAX AUDITOR Ot L97.122 NON-PRESSURE CHRONIC ULCER OF LEFT THIGH 12/20/2017 MARQUIS COLMENARES R FIELD TAX AUDITOR Ot Z89.512 ACQUIRED ABSENCE OF LEFT LEG BELOW KNEE 12/21/2017 MARQUIS COLMENARES R FIELD TAX AUDITOR Ot B36.9 SUPERFICIAL MYCOSIS, UNSPECIFIED 12/21/2017 MARQUIS COLMENARES R FIELD TAX AUDITOR Ot L03.116 CELLULITIS OF LEFT LOWER LIMB 12/21/2017 DEDRA, MARQUIS R FIELD TAX AUDITOR Ot L97.121 NON-PRS CHRONIC ULCER OF LEFT THIGH LIMI 12/21/2017 DEDRA MARQUIS R FIELD TAX AUDITOR Ot L97.122 NON-PRESSURE CHRONIC ULCER OF LEFT THIGH 12/21/2017 MARQUIS COLMENARES FIELD TAX AUDITOR Ot Z89.512 ACQUIRED ABSENCE OF LEFT LEG BELOW KNEE 12/24/2017 MARQUIS COLMENARES FIELD TAX AUDITOR Ot B36.9 SUPERFICIAL MYCOSIS, UNSPECIFIED 12/24/2017 MARQUIS COLMENARES R FIELD TAX AUDITOR Ot L03.116 CELLULITIS OF LEFT LOWER LIMB 12/24/2017 DEDRA MARQUIS R FIELD TAX AUDITOR Ot L97.122 NON-PRESSURE CHRONIC ULCER OF LEFT THIGH 12/24/2017 DEDRA MARQUIS R FIELD TAX AUDITOR Ot Z89.512 ACQUIRED ABSENCE OF LEFT LEG BELOW KNEE 12/25/2017 MARQUIS COLMENARES R FIELD TAX AUDITOR Ot B36.9 SUPERFICIAL MYCOSIS, UNSPECIFIED 12/25/2017 DEDRA MARQUIS R FIELD TAX AUDITOR Ot L03.116 CELLULITIS OF LEFT LOWER LIMB 12/25/2017 MARQUIS COLMENARES FIELD TAX AUDITOR Ot L97.122 NON-PRESSURE CHRONIC ULCER OF LEFT THIGH 12/25/2017 MARQUIS COLMENARES R FIELD TAX AUDITOR Ot Z89.512 ACQUIRED ABSENCE OF LEFT LEG BELOW KNEE 12/27/2017 MARQUIS COLMENARES R FIELD TAX AUDITOR Ot B36.9 SUPERFICIAL MYCOSIS, UNSPECIFIED 12/27/2017 MARQUIS COLMENARES R FIELD TAX AUDITOR Ot L03.116 CELLULITIS OF LEFT LOWER LIMB 12/27/2017 DEDRA MARQUIS R FIELD TAX AUDITOR Ot L97.121 NON-PRS CHRONIC ULCER OF LEFT THIGH LIMI 12/27/2017 MARQUIS COLMENARES FIELD TAX AUDITOR Ot L97.122 NON-PRESSURE CHRONIC ULCER OF LEFT THIGH 12/27/2017 MARQUIS COLMENARES R FIELD TAX AUDITOR Ot Z89.512 ACQUIRED ABSENCE OF LEFT LEG BELOW KNEE 01/02/2018 MARQUIS COLMENARES R FIELD TAX AUDITOR Ot B36.9 SUPERFICIAL MYCOSIS, UNSPECIFIED 01/02/2018 MARQUIS COLMENARES R FIELD TAX AUDITOR Ot L03.116 CELLULITIS OF LEFT LOWER LIMB 01/02/2018 MARQUIS COLMENARES R FIELD TAX AUDITOR Ot L97.122 NON-PRESSURE CHRONIC ULCER OF LEFT THIGH 01/02/2018 MARQUIS COLMENARES R FIELD TAX AUDITOR Ot Z89.512 ACQUIRED ABSENCE OF LEFT LEG BELOW KNEE 01/03/2018 MARQUIS COLMENARES R FIELD TAX AUDITOR Ot B36.9 SUPERFICIAL MYCOSIS, UNSPECIFIED 01/03/2018 MARQUIS COLMENARES R FIELD TAX AUDITOR Ot L03.116 CELLULITIS OF LEFT LOWER LIMB 01/03/2018 MARQUIS COLMENARES FIELD TAX AUDITOR Ot L97.121 NON-PRS CHRONIC ULCER OF LEFT THIGH LIMI 01/03/2018 MARQUIS COLMENARES R FIELD TAX AUDITOR Ot L97.122 NON-PRESSURE CHRONIC ULCER OF LEFT THIGH 01/03/2018 MARQUIS COLMENARES R FIELD TAX AUDITOR Ot Z89.512 ACQUIRED ABSENCE OF LEFT LEG BELOW KNEE 01/07/2018 MARQUIS COLMENARES R FIELD TAX AUDITOR Ot B36.9 SUPERFICIAL MYCOSIS, UNSPECIFIED 01/07/2018 DEDRA MARQUIS R FIELD TAX AUDITOR Ot L03.116 CELLULITIS OF LEFT LOWER LIMB 01/07/2018 DEDRA MARQUIS R FIELD TAX AUDITOR Ot L97.122 NON-PRESSURE CHRONIC ULCER OF LEFT THIGH 01/07/2018 MARQUIS COLMENARES R FIELD TAX AUDITOR Ot Z89.512 ACQUIRED ABSENCE OF LEFT LEG BELOW KNEE 01/07/2018 MARQUIS COLMENARES FIELD TAX AUDITOR Ot B36.9 SUPERFICIAL MYCOSIS, UNSPECIFIED 01/07/2018 MARQUIS COLMENARES R FIELD TAX AUDITOR Ot L03.116 CELLULITIS OF LEFT LOWER LIMB 01/07/2018 DEDRA MARQUIS R FIELD TAX AUDITOR Ot L97.122 NON-PRESSURE CHRONIC ULCER OF LEFT THIGH 01/07/2018 MARQUIS COLMENARES R FIELD TAX AUDITOR Ot Z89.512 ACQUIRED ABSENCE OF LEFT LEG BELOW KNEE 01/07/2018 MARQUIS COLMENARES R FIELD TAX AUDITOR Ot B36.9 SUPERFICIAL MYCOSIS, UNSPECIFIED 01/07/2018 MARQUIS COLMENARES R FIELD TAX AUDITOR Ot L03.116 CELLULITIS OF LEFT LOWER LIMB 01/07/2018 MARQUIS COLMENARES FIELD TAX AUDITOR Ot L97.122 NON-PRESSURE CHRONIC ULCER OF LEFT THIGH 01/07/2018 MARQUIS COLMENARES R FIELD TAX AUDITOR Ot Z89.512 ACQUIRED ABSENCE OF LEFT LEG BELOW KNEE 01/07/2018 MARQUIS COLMENARES R FIELD TAX AUDITOR Ot B36.9 SUPERFICIAL MYCOSIS, UNSPECIFIED 01/07/2018 MARQUIS COLMENARES R FIELD TAX AUDITOR Ot L03.116 CELLULITIS OF LEFT LOWER LIMB 01/07/2018 MARQUIS COLMENARES R FIELD TAX AUDITOR Ot L97.122 NON-PRESSURE CHRONIC ULCER OF LEFT THIGH 01/07/2018 MARQUIS COLMENARES R FIELD TAX AUDITOR Ot Z89.512 ACQUIRED ABSENCE OF LEFT LEG BELOW KNEE 01/08/2018 MARQUIS COLMENARES R FIELD TAX AUDITOR Ot B36.9 SUPERFICIAL MYCOSIS, UNSPECIFIED 01/08/2018 MARQUIS COLMENARES FIELD TAX AUDITOR Ot L03.116 CELLULITIS OF LEFT LOWER LIMB 01/08/2018 MARQUIS COLMENARES FIELD TAX AUDITOR Ot L97.121 NON-PRS CHRONIC ULCER OF LEFT THIGH LIMI 01/08/2018 MARQUIS COLMENARES FIELD TAX AUDITOR Ot L97.122 NON-PRESSURE CHRONIC ULCER OF LEFT THIGH 01/08/2018 MARQUIS COLMENARES FIELD TAX AUDITOR Ot Z89.512 ACQUIRED ABSENCE OF LEFT LEG BELOW KNEE 01/08/2018 MARQUIS COLMENARES FIELD TAX AUDITOR Ot Z51.81 ENCOUNTER FOR THERAPEUTIC DRUG LEVEL MON 01/08/2018 MARQUIS COLMENARES FIELD TAX AUDITOR Ot Z79.899 OTHER SHELTER (CURRENT) DRUG THERAPY 01/09/2018 MARQUIS COLMENARES FIELD TAX AUDITOR Ot B36.9 SUPERFICIAL MYCOSIS, UNSPECIFIED 01/09/2018 MARQUIS COLMENARES FIELD TAX AUDITOR Ot L03.116 CELLULITIS OF LEFT LOWER LIMB 01/09/2018 MARQUIS COLMENARES FIELD TAX AUDITOR Ot L97.121 NON-PRS CHRONIC ULCER OF LEFT THIGH LIMI 01/09/2018 MARQUIS COLMENARES R FIELD TAX AUDITOR Ot Z89.512 ACQUIRED ABSENCE OF LEFT LEG BELOW KNEE 01/14/2018 MARQUIS COLMENARES R FIELD TAX AUDITOR Ot B36.9 SUPERFICIAL MYCOSIS, UNSPECIFIED 01/14/2018 MARQUIS COLMENARES R FIELD TAX AUDITOR Ot L03.116 CELLULITIS OF LEFT LOWER LIMB 01/14/2018 MARQUIS COLMENARES FIELD TAX AUDITOR Ot L97.121 NON-PRS CHRONIC ULCER OF LEFT THIGH LIMI 01/14/2018 MARQUIS COLMENARES FIELD TAX AUDITOR Ot Z89.512 ACQUIRED ABSENCE OF LEFT LEG BELOW KNEE 01/16/2018 MARQUIS COLMENARES FIELD TAX AUDITOR Ot B36.9 SUPERFICIAL MYCOSIS, UNSPECIFIED 01/16/2018 MARQUIS COLMENARES R FIELD TAX AUDITOR Ot L03.116 CELLULITIS OF LEFT LOWER LIMB 01/16/2018 MARQUIS COLMENARES R FIELD TAX AUDITOR Ot L97.121 NON-PRS CHRONIC ULCER OF LEFT THIGH LIMI 01/16/2018 MARQUIS COLMENARES R FIELD TAX AUDITOR Ot Z89.512 ACQUIRED ABSENCE OF LEFT LEG BELOW KNEE 01/16/2018 MARQUIS COLMENARES R FIELD TAX AUDITOR Ot B36.9 SUPERFICIAL MYCOSIS, UNSPECIFIED 01/16/2018 MARQUIS COLMENARES R FIELD TAX AUDITOR Ot L03.116 CELLULITIS OF LEFT LOWER LIMB 01/16/2018 MARQUIS COLMENARES FIELD TAX AUDITOR Ot L97.121 NON-PRS CHRONIC ULCER OF LEFT THIGH LIMI 01/16/2018 DEDRA MARQUIS R FIELD TAX AUDITOR Ot L97.122 NON-PRESSURE CHRONIC ULCER OF LEFT THIGH 01/16/2018 DEDRA MARQUIS R FIELD TAX AUDITOR Ot Z89.512 ACQUIRED ABSENCE OF LEFT LEG BELOW KNEE 01/22/2018 DEDRA MARQUIS R FIELD TAX AUDITOR Ot B36.9 SUPERFICIAL MYCOSIS, UNSPECIFIED 01/22/2018 DEDRA MARQUIS R FIELD TAX AUDITOR Ot L03.116 CELLULITIS OF LEFT LOWER LIMB 01/22/2018 DEDRA MARQUIS R FIELD TAX AUDITOR Ot L97.121 NON-PRS CHRONIC ULCER OF LEFT THIGH LIMI 01/22/2018 DEDRA MARQUIS R FIELD TAX AUDITOR Ot L97.122 NON-PRESSURE CHRONIC ULCER OF LEFT THIGH 01/22/2018 DEDRA MARQUIS R FIELD TAX AUDITOR Ot Z89.512 ACQUIRED ABSENCE OF LEFT LEG BELOW KNEE 01/23/2018 DEDRA MARQUIS R FIELD TAX AUDITOR Ot B36.9 SUPERFICIAL MYCOSIS, UNSPECIFIED 01/23/2018 DEDRA MARQUIS R FIELD TAX AUDITOR Ot L03.116 CELLULITIS OF LEFT LOWER LIMB 01/23/2018 MARQUIS COLMENARES R FIELD TAX AUDITOR Ot L97.122 NON-PRESSURE CHRONIC ULCER OF LEFT THIGH 01/23/2018 DEDRA MARQUIS R FIELD TAX AUDITOR Ot Z89.512 ACQUIRED ABSENCE OF LEFT LEG BELOW KNEE 01/23/2018 MARQUIS COLMENARES R FIELD TAX AUDITOR Ot B36.9 SUPERFICIAL MYCOSIS, UNSPECIFIED 01/23/2018 DEDRA MARQUIS R FIELD TAX AUDITOR Ot L03.116 CELLULITIS OF LEFT LOWER LIMB 01/23/2018 DEDRA MARQUIS R FIELD TAX AUDITOR Ot L97.122 NON-PRESSURE CHRONIC ULCER OF LEFT THIGH 01/23/2018 DEDRA MARQUIS R FIELD TAX AUDITOR Ot Z89.512 ACQUIRED ABSENCE OF LEFT LEG BELOW KNEE 01/28/2018 DEDRA MARQUIS R FIELD TAX AUDITOR Ot B36.9 SUPERFICIAL MYCOSIS, UNSPECIFIED 01/28/2018 DEDRA MARQUIS R FIELD TAX AUDITOR Ot L03.116 CELLULITIS OF LEFT LOWER LIMB 01/28/2018 DEDRA MARQUIS R FIELD TAX AUDITOR Ot L97.122 NON-PRESSURE CHRONIC ULCER OF LEFT THIGH 01/28/2018 DEDRA MARQUIS R FIELD TAX AUDITOR Ot Z89.512 ACQUIRED ABSENCE OF LEFT LEG BELOW KNEE 01/30/2018 DEDRA MARQUIS R FIELD TAX AUDITOR Ot B36.9 SUPERFICIAL MYCOSIS, UNSPECIFIED 01/30/2018 DEDRA MARQUIS R FIELD TAX AUDITOR Ot L03.116 CELLULITIS OF LEFT LOWER LIMB 01/30/2018 DEDRAPASCUALN R FIELD TAX AUDITOR Ot L97.121 NON-PRS CHRONIC ULCER OF LEFT THIGH LIMI 01/30/2018 DEDRA MARQUIS R FIELD TAX AUDITOR Ot Z89.512 ACQUIRED ABSENCE OF LEFT LEG BELOW KNEE 02/01/2018 MARQUIS COLMENARES R FIELD TAX AUDITOR Ot B36.9 SUPERFICIAL MYCOSIS, UNSPECIFIED 02/01/2018 MARQUIS COLMENARES R FIELD TAX AUDITOR Ot L03.116 CELLULITIS OF LEFT LOWER LIMB 02/01/2018 MARQUIS COLMENARES R FIELD TAX AUDITOR Ot L97.121 NON-PRS CHRONIC ULCER OF LEFT THIGH LIMI 02/01/2018 DEDRA MARQUIS R FIELD TAX AUDITOR Ot L97.122 NON-PRESSURE CHRONIC ULCER OF LEFT THIGH 02/01/2018 MARQUIS COLMENARES R FIELD TAX AUDITOR Ot Z89.512 ACQUIRED ABSENCE OF LEFT LEG BELOW KNEE 02/04/2018 MARQUIS COLMENARES R FIELD TAX AUDITOR Ot B36.9 SUPERFICIAL MYCOSIS, UNSPECIFIED 02/04/2018 MARQUIS COLMENARES R FIELD TAX AUDITOR Ot L03.116 CELLULITIS OF LEFT LOWER LIMB 02/04/2018 MARQUIS COLMENARES R FIELD TAX AUDITOR Ot L97.121 NON-PRS CHRONIC ULCER OF LEFT THIGH LIMI 02/04/2018 DEDRA MARQUIS R FIELD TAX AUDITOR Ot L97.122 NON-PRESSURE CHRONIC ULCER OF LEFT THIGH 02/04/2018 MARQUIS COLMENARES R FIELD TAX AUDITOR Ot Z89.512 ACQUIRED ABSENCE OF LEFT LEG BELOW KNEE 02/05/2018 MARQUIS COLMENARES R FIELD TAX AUDITOR Ot B36.9 SUPERFICIAL MYCOSIS, UNSPECIFIED 02/05/2018 MARQUIS COLMENARES FIELD TAX AUDITOR Ot L03.116 CELLULITIS OF LEFT LOWER LIMB 02/05/2018 MARQUIS COLMENARES FIELD TAX AUDITOR Ot L97.121 NON-PRS CHRONIC ULCER OF LEFT THIGH LIMI 02/05/2018 MARQUIS COLMENARES R FIELD TAX AUDITOR Ot Z89.512 ACQUIRED ABSENCE OF LEFT LEG BELOW KNEE 02/13/2018 MARQUIS COLMENARES FIELD TAX AUDITOR Ot B36.9 SUPERFICIAL MYCOSIS, UNSPECIFIED 02/13/2018 MARQUIS COLMENARES R FIELD TAX AUDITOR Ot L03.116 CELLULITIS OF LEFT LOWER LIMB 02/13/2018 MARQUIS COLMENARES R FIELD TAX AUDITOR Ot L97.122 NON-PRESSURE CHRONIC ULCER OF LEFT THIGH 02/13/2018 MARQUIS COLMENARES R FIELD TAX AUDITOR Ot Z89.512 ACQUIRED ABSENCE OF LEFT LEG BELOW KNEE 03/01/2018 DEDRA MARQUIS Torres FIELD TAX AUDITOR Ot B36.9 SUPERFICIAL MYCOSIS, UNSPECIFIED 03/01/2018 MARQUIS COLMENARES R FIELD TAX AUDITOR Ot L03.116 CELLULITIS OF LEFT LOWER LIMB 03/01/2018 MARQUIS COLMENARES FIELD TAX AUDITOR Ot L97.121 NON-PRS CHRONIC ULCER OF LEFT THIGH LIMI 03/01/2018 DEDRA MARQUIS Torres FIELD TAX AUDITOR Ot Z89.512 ACQUIRED ABSENCE OF LEFT LEG BELOW KNEE 03/01/2018 MARQUIS COLMENARES FIELD TAX AUDITOR Ot B36.9 SUPERFICIAL MYCOSIS, UNSPECIFIED 03/01/2018 MARQUIS COLMENARES R FIELD TAX AUDITOR Ot L03.116 CELLULITIS OF LEFT LOWER LIMB 03/01/2018 MARQUIS COLMENARES R FIELD TAX AUDITOR Ot L97.121 NON-PRS CHRONIC ULCER OF LEFT THIGH LIMI 03/01/2018 MARQUIS COLMENARES FIELD TAX AUDITOR Ot Z89.512 ACQUIRED ABSENCE OF LEFT LEG BELOW KNEE 03/04/2018 MARQUIS COLMENARES FIELD TAX AUDITOR Ot Z51.81 ENCOUNTER FOR THERAPEUTIC DRUG LEVEL MON 03/04/2018 MARQUIS COLMENARES R FIELD TAX AUDITOR Ot Z79.899 OTHER SHELTER (CURRENT) DRUG THERAPY 03/05/2018 MARQUIS COLMENARES R FIELD TAX AUDITOR Ot Z51.81 ENCOUNTER FOR THERAPEUTIC DRUG LEVEL MON 03/05/2018 MARQUIS COLMENARES R FIELD TAX AUDITOR Ot Z79.899 OTHER SHELTER (CURRENT) DRUG THERAPY 03/11/2018 MARQUIS COLMENARES FIELD TAX AUDITOR Ot B36.9 SUPERFICIAL MYCOSIS, UNSPECIFIED 03/11/2018 MARQUIS COLMENARES FIELD TAX AUDITOR Ot L03.116 CELLULITIS OF LEFT LOWER LIMB 03/11/2018 MARQUIS COLMENARES FIELD TAX AUDITOR Ot L97.122 NON-PRESSURE CHRONIC ULCER OF LEFT THIGH 03/11/2018 MARQUIS COLMENARES FIELD TAX AUDITOR Ot Z89.512 ACQUIRED ABSENCE OF LEFT LEG BELOW KNEE 2019 MARQUIS COLMENARES R FIELD TAX AUDITOR Ot L03.116 CELLULITIS OF LEFT LOWER LIMB 2019 MARQUIS COLMENARES FIELD TAX AUDITOR Ot Z89.512 ACQUIRED ABSENCE OF LEFT LEG BELOW KNEE 2019 MARQUIS COLMENARES FIELD TAX AUDITOR Ot B36.9 SUPERFICIAL MYCOSIS, UNSPECIFIED 2019 MARQUIS COLMENARES FIELD TAX AUDITOR Ot L03.116 CELLULITIS OF LEFT LOWER LIMB 2019 MARQUIS COLMENARES FIELD TAX AUDITOR Ot L97.122 NON-PRESSURE CHRONIC ULCER OF LEFT THIGH 2019 DEDRA MARQUIS R FIELD TAX AUDITOR Ot Z89.512 ACQUIRED ABSENCE OF LEFT LEG BELOW KNEE 2019 DEDRAMARQUIS R FIELD TAX AUDITOR Ot B36.9 SUPERFICIAL MYCOSIS, UNSPECIFIED 2019 DEDRA MARQUIS R FIELD TAX AUDITOR Ot L03.116 CELLULITIS OF LEFT LOWER LIMB 2019 DEDRA MARQUIS R FIELD TAX AUDITOR Ot L97.122 NON-PRESSURE CHRONIC ULCER OF LEFT THIGH 2019 DEDRA MARQUIS R FIELD TAX AUDITOR Ot Z89.512 ACQUIRED ABSENCE OF LEFT LEG BELOW KNEE 2019 DEDRA MARQUIS R FIELD TAX AUDITOR Ot B36.9 SUPERFICIAL MYCOSIS, UNSPECIFIED 2019 DEDRA MARQUIS R FIELD TAX AUDITOR Ot L03.116 CELLULITIS OF LEFT LOWER LIMB 2019 DEDRA MARQUIS R FIELD TAX AUDITOR Ot L97.122 NON-PRESSURE CHRONIC ULCER OF LEFT THIGH 2019 MARQUIS COLMENARES R FIELD TAX AUDITOR Ot Z89.512 ACQUIRED ABSENCE OF LEFT LEG BELOW KNEE 2019 DEDRA MARQUIS R FIELD TAX AUDITOR Ot B36.9 SUPERFICIAL MYCOSIS, UNSPECIFIED 2019 DEDRA MARQUIS R FIELD TAX AUDITOR Ot L03.116 CELLULITIS OF LEFT LOWER LIMB 2019 DEDRA MARQUIS R FIELD TAX AUDITOR Ot L97.122 NON-PRESSURE CHRONIC ULCER OF LEFT THIGH 2019 MARQUIS COLMENARES R FIELD TAX AUDITOR Ot Z89.512 ACQUIRED ABSENCE OF LEFT LEG BELOW KNEE 2019 MARQUIS COLMENARES R FIELD TAX AUDITOR Ot B36.9 SUPERFICIAL MYCOSIS, UNSPECIFIED 2019 MARQUIS COLMENARES R FIELD TAX AUDITOR Ot L03.116 CELLULITIS OF LEFT LOWER LIMB 2019 DEDRA MARQUIS R FIELD TAX AUDITOR Ot L97.122 NON-PRESSURE CHRONIC ULCER OF LEFT THIGH 2019 MARQUIS COLMENARES R FIELD TAX AUDITOR Ot Z89.512 ACQUIRED ABSENCE OF LEFT LEG BELOW KNEE 2019 MARQUIS COLMENARES R FIELD TAX AUDITOR Ot B36.9 SUPERFICIAL MYCOSIS, UNSPECIFIED 2019 DEDRA MARQUIS R FIELD TAX AUDITOR Ot L03.116 CELLULITIS OF LEFT LOWER LIMB 2019 DEDRA MARQUIS R FIELD TAX AUDITOR Ot L97.121 NON-PRS CHRONIC ULCER OF LEFT THIGH LIMI 2019 DEDRA MARQUIS R FIELD TAX AUDITOR Ot L97.122 NON-PRESSURE CHRONIC ULCER OF LEFT THIGH 2019 DEDRA MARQUIS R FIELD TAX AUDITOR Ot Z89.512 ACQUIRED ABSENCE OF LEFT LEG BELOW KNEE 2019 MARQUIS COLMENARES R FIELD TAX AUDITOR Ot B36.9 SUPERFICIAL MYCOSIS, UNSPECIFIED 2019 MARQUIS COLMENARES R FIELD TAX AUDITOR Ot L03.116 CELLULITIS OF LEFT LOWER LIMB 2019 MARQUIS COLMENARES R FIELD TAX AUDITOR Ot L97.121 NON-PRS CHRONIC ULCER OF LEFT THIGH LIMI 2019 DEDRA MARQUIS R FIELD TAX AUDITOR Ot L97.122 NON-PRESSURE CHRONIC ULCER OF LEFT THIGH 2019 DEDRA MARQUIS R FIELD TAX AUDITOR Ot Z89.512 ACQUIRED ABSENCE OF LEFT LEG BELOW KNEE 2019 MARQUIS COLMENARES R FIELD TAX AUDITOR Ot B36.9 SUPERFICIAL MYCOSIS, UNSPECIFIED 2019 MARQUIS COLMENARES R FIELD TAX AUDITOR Ot L03.116 CELLULITIS OF LEFT LOWER LIMB 2019 MARQUIS COLMENARES FIELD TAX AUDITOR Ot L97.121 NON-PRS CHRONIC ULCER OF LEFT THIGH LIMI 2019 MARQUIS COLMENARES R FIELD TAX AUDITOR Ot L97.122 NON-PRESSURE CHRONIC ULCER OF LEFT THIGH 2019 MARQUIS COLMENARES R FIELD TAX AUDITOR Ot Z89.512 ACQUIRED ABSENCE OF LEFT LEG BELOW KNEE 2019 MARQUIS COLMENARES R FIELD TAX AUDITOR Ot B36.9 SUPERFICIAL MYCOSIS, UNSPECIFIED 2019 MARQUIS COLMENARES R FIELD TAX AUDITOR Ot L03.116 CELLULITIS OF LEFT LOWER LIMB 2019 MARQUIS COLMENARES R FIELD TAX AUDITOR Ot L97.121 NON-PRS CHRONIC ULCER OF LEFT THIGH LIMI 2019 MARQUIS COLMENARES R FIELD TAX AUDITOR Ot Z89.512 ACQUIRED ABSENCE OF LEFT LEG BELOW KNEE 2019 MARQUIS COLMENARES R FIELD TAX AUDITOR Ot B36.9 SUPERFICIAL MYCOSIS, UNSPECIFIED 2019 MARQUIS COLMENARES R FIELD TAX AUDITOR Ot L03.116 CELLULITIS OF LEFT LOWER LIMB 2019 MARQUIS COLMENARES R FIELD TAX AUDITOR Ot L97.121 NON-PRS CHRONIC ULCER OF LEFT THIGH LIMI 2019 MARQUIS COLMENARES R FIELD TAX AUDITOR Ot Z89.512 ACQUIRED ABSENCE OF LEFT LEG BELOW KNEE 2019 MARQUIS COLMENARES R FIELD TAX AUDITOR Ot B36.9 SUPERFICIAL MYCOSIS, UNSPECIFIED 2019 MARQUIS COLMENARES APRN Ot L03.116 CELLULITIS OF LEFT LOWER LIMB 2019 MARQUIS COLMENARES APRN Ot L97.122 NON-PRESSURE CHRONIC ULCER OF LEFT THIGH 2019 MARQUIS COLMENARES APRN Ot Z89.512 ACQUIRED ABSENCE OF LEFT LEG BELOW KNEE 2019 MARQUIS COLMENARES APRN Ot Z51.81 ENCOUNTER FOR THERAPEUTIC DRUG LEVEL MON 2019 MARQUIS COLMENARES APRN Ot 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 4 SHELTER (CURRENT) USE OF INSULIN 08/29/2019 GRIFFIN DO, [...] GRIFFIN DO, GALO D Ot Z79. 4 WINE MASTER (CURRENT) USE OF INSULIN 08/30/2019 GRIFFIN DO, [...] GRIFFIN DO, GALO D Ot Z79. 4 SHELTER (CURRENT) USE OF INSULIN 09/05/2019 GRIFFIN DO, [...] GRIFFIN DO, GALO D Ot Z79. 4 SHELTER (CURRENT) USE OF INSULIN 09/05/2019 GRIFFIN DO, [...] GRIFFIN DO, GALO D Ot Z79. 4 SHELTER (CURRENT) USE OF INSULIN 09/05/2019 GRIFFIN DO, [...] NEOPLASM OF SIGMOID COLON 09/06/2019 GRIFFIN DO, GAOL D Ot E11. 9 TYPE 2 DIABETES [...] GRIFFIN DO, GALO D Ot Z79. 4 SHELTER (CURRENT) USE OF INSULIN 09/06/2019 GRIFFIN DO, [...] GRIFFIN DO, GALO D Ot Z79. 4 SHELTER (CURRENT) USE OF INSULIN 09/07/2019 GRIFFIN DO, [...] GRIFFIN DO, GALO D Ot Z79. 4 SHELTER (CURRENT) USE OF INSULIN 09/08/2019 GRIFFIN DO, [...] GRIFFIN DO, GALO D Ot Z79. 4 SHELTER (CURRENT) USE OF INSULIN 09/08/2019 GRIFFIN DO, [...] GRIFFIN DO, GALO D Ot Z79. 4 WINE MASTER (CURRENT) USE OF INSULIN 09/09/2019 GRIFFIN DO, [...] [facility] (CURRENT) USE OF INSULIN 09/09/2019 [facility] LEG BELOW KNEE 10/15/2019 DEDRA MARQUIS R FIELD TAX AUDITOR Ot B36.9 SUPERFICIAL MYCOSIS, UNSPECIFIED 10/15/2019 DEDRA, MARQUIS R FIELD TAX AUDITOR Ot L03.116 CELLULITIS OF LEFT LOWER LIMB 10/15/2019 DEDRA, MARQUIS R FIELD TAX AUDITOR Ot L97.122 NON-PRESSURE CHRONIC ULCER OF LEFT THIGH 10/15/2019 DEDRA MARQUIS R FIELD TAX AUDITOR Ot Z89.512 ACQUIRED ABSENCE OF LEFT LEG BELOW KNEE 10/15/2019 DEDRA, MARQUIS R FIELD TAX AUDITOR Ot B36.9 SUPERFICIAL MYCOSIS, UNSPECIFIED 10/15/2019 DEDRA, MARQUIS R FIELD TAX AUDITOR Ot L03.116 CELLULITIS OF LEFT LOWER LIMB 10/15/2019 DEDRA, MARQUIS R FIELD TAX AUDITOR Ot L97.122 NON-PRESSURE CHRONIC ULCER OF LEFT THIGH 10/15/2019 DEDRA MARQUIS R FIELD TAX AUDITOR Ot Z89.512 ACQUIRED ABSENCE OF LEFT LEG BELOW KNEE 10/15/2019 DEDRA MARQUIS R FIELD TAX AUDITOR Ot B36.9 SUPERFICIAL MYCOSIS, UNSPECIFIED 10/15/2019 DEDRA, MARQUIS R FIELD TAX AUDITOR Ot L03.116 CELLULITIS OF LEFT LOWER LIMB 10/15/2019 DEDRA, MARQUIS R FIELD TAX AUDITOR Ot L97.122 NON-PRESSURE CHRONIC ULCER OF LEFT THIGH 10/15/2019 DEDRA MARQUIS R FIELD TAX AUDITOR Ot Z89.512 ACQUIRED ABSENCE OF LEFT LEG BELOW KNEE 10/15/2019 DEDRA MARQUIS R FIELD TAX AUDITOR Ot B36.9 SUPERFICIAL MYCOSIS, UNSPECIFIED 10/15/2019 DEDRA, MARQUIS R FIELD TAX AUDITOR Ot L03.116 CELLULITIS OF LEFT LOWER LIMB 10/15/2019 DEDRA MARQUIS R FIELD TAX AUDITOR Ot L97.122 NON-PRESSURE CHRONIC ULCER OF LEFT THIGH 10/15/2019 DEDRA MARQUIS R FIELD TAX AUDITOR Ot Z89.512 ACQUIRED ABSENCE OF LEFT LEG BELOW KNEE 10/15/2019 EDDRA, MARQUIS R FIELD TAX AUDITOR Ot B36.9 SUPERFICIAL MYCOSIS, UNSPECIFIED 10/15/2019 DEDRA, MARQUIS R FIELD TAX AUDITOR Ot L03.116 CELLULITIS OF LEFT LOWER LIMB 10/15/2019 DEDRA, MARQUIS R FIELD TAX AUDITOR Ot L97.122 NON-PRESSURE CHRONIC ULCER OF LEFT THIGH 10/15/2019 DEDRA MARQUIS R FIELD TAX AUDITOR Ot Z89.512 ACQUIRED ABSENCE OF LEFT LEG BELOW KNEE 10/15/2019 DEDRA, MARQUIS R FIELD TAX AUDITOR Ot B36.9 SUPERFICIAL MYCOSIS, UNSPECIFIED 10/15/2019 DEDRA MARQUIS R FIELD TAX AUDITOR Ot L03.116 CELLULITIS OF LEFT LOWER LIMB 10/15/2019 DEDRA MARQUIS R FIELD TAX AUDITOR Ot L97.121 NON-PRS CHRONIC ULCER OF LEFT THIGH LIMI 10/15/2019 DEDRA, MARQUIS R FIELD TAX AUDITOR Ot L97.122 NON-PRESSURE CHRONIC ULCER OF LEFT THIGH 10/15/2019 DEDRA MARQUIS R FIELD TAX AUDITOR Ot Z89.512 ACQUIRED ABSENCE OF LEFT LEG BELOW KNEE 10/15/2019 DEDRA MARQUIS R FIELD TAX AUDITOR Ot B36.9 SUPERFICIAL MYCOSIS, UNSPECIFIED 10/15/2019 DEDRA MARQUIS R FIELD TAX AUDITOR Ot L03.116 CELLULITIS OF LEFT LOWER LIMB 10/15/2019 DEDRA MARQUIS R FIELD TAX AUDITOR Ot L97.121 NON-PRS CHRONIC ULCER OF LEFT THIGH LIMI 10/15/2019 DEDRA MARQUIS R FIELD TAX AUDITOR Ot L97.122 NON-PRESSURE CHRONIC ULCER OF LEFT THIGH 10/15/2019 DEDRA MARQUIS R FIELD TAX AUDITOR Ot Z89.512 ACQUIRED ABSENCE OF LEFT LEG BELOW KNEE 10/15/2019 DEDRA MARQUIS R FIELD TAX AUDITOR Ot B36.9 SUPERFICIAL MYCOSIS, UNSPECIFIED 10/15/2019 DEDRA MARQUIS R FIELD TAX AUDITOR Ot L03.116 CELLULITIS OF LEFT LOWER LIMB 10/15/2019 DEDRA MARQUIS R FIELD TAX AUDITOR Ot L97.121 NON-PRS CHRONIC ULCER OF LEFT THIGH LIMI 10/15/2019 DEDRA MARQUIS R FIELD TAX AUDITOR Ot L97.122 NON-PRESSURE CHRONIC ULCER OF LEFT THIGH 10/15/2019 DEDRA MARQUIS R FIELD TAX AUDITOR Ot Z89.512 ACQUIRED ABSENCE OF LEFT LEG BELOW KNEE 10/15/2019 DEDRA MARQUIS R FIELD TAX AUDITOR Ot B36.9 SUPERFICIAL MYCOSIS, UNSPECIFIED 10/15/2019 DEDRA MARQUIS R FIELD TAX AUDITOR Ot L03.116 CELLULITIS OF LEFT LOWER LIMB 10/15/2019 DEDRA MARQUIS R FIELD TAX AUDITOR Ot L97.121 NON-PRS CHRONIC ULCER OF LEFT THIGH LIMI 10/15/2019 DEDRA MARQUIS R FIELD TAX AUDITOR Ot Z89.512 ACQUIRED ABSENCE OF LEFT LEG BELOW KNEE 10/15/2019 DEDRA MARQUIS R FIELD TAX AUDITOR Ot B36.9 SUPERFICIAL MYCOSIS, UNSPECIFIED 10/15/2019 DEDRA, MARQUIS R FIELD TAX AUDITOR Ot L03.116 CELLULITIS OF LEFT LOWER LIMB 10/15/2019 DEDRA MARQUIS R FIELD TAX AUDITOR Ot L97.121 NON-PRS CHRONIC ULCER OF LEFT THIGH LIMI 10/15/2019 MARQUIS COLMENARES FIELD TAX AUDITOR Ot Z89.512 ACQUIRED ABSENCE OF LEFT LEG BELOW KNEE 10/15/2019 MARQUIS COLMENARES FIELD TAX AUDITOR Ot B36.9 SUPERFICIAL MYCOSIS, UNSPECIFIED 10/15/2019 MARQUIS COLMENARES R FIELD TAX AUDITOR Ot L03.116 CELLULITIS OF LEFT LOWER LIMB 10/15/2019 MARQUIS COLMENARES FIELD TAX AUDITOR Ot L97.122 NON-PRESSURE CHRONIC ULCER OF LEFT THIGH 10/15/2019 MARQUIS COLMENARES FIELD TAX AUDITOR Ot Z89.512 ACQUIRED ABSENCE OF LEFT LEG BELOW KNEE 10/15/2019 MARQUIS COLMENARES FIELD TAX AUDITOR Ot Z51.81 ENCOUNTER FOR THERAPEUTIC DRUG LEVEL MON 10/15/2019 MARQUIS COLMENARES FIELD TAX AUDITOR Ot Z79.899 OTHER SHELTER (CURRENT) DRUG THERAPY 10/15/2019 KIANNA PERES MD, Ot E11.622 TYPE 2 DIABETES MELLITUS WITH OTHER SKIN 10/15/2019 KIANNA PERES MD, Ot 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 10/15/2019 [...] OF RIGHT LEG BELOW KNEE 10/15/2019 KIANNA PEERS MD Ot Z89.512 ACQUIRED ABSENCE OF LEFT [...] UNSP MALIGNANT NEOPLASM OF 10/17/2019 MARQUIS COLMENARES FIELD TAX AUDITOR Ot L03.116 CELLULITIS OF LEFT LOWER LIMB [...] LEG BELOW KNEE 10/17/2019 DEDRA, MARQUIS R FIELD TAX AUDITOR Ot B36.9 SUPERFICIAL MYCOSIS, UNSPECIFIED 10/17/2019 DEDRA, MARQUIS R FIELD TAX AUDITOR Ot L03.116 CELLULITIS OF LEFT LOWER LIMB 10/17/2019 DEDRA MARQUIS R FIELD TAX AUDITOR Ot L97.122 NON-PRESSURE CHRONIC ULCER OF LEFT THIGH 10/17/2019 DEDRA MARQUIS R FIELD TAX AUDITOR Ot Z89.512 ACQUIRED ABSENCE OF LEFT LEG BELOW KNEE 10/17/2019 DEDRA MARQUIS R FIELD TAX AUDITOR Ot B36.9 SUPERFICIAL MYCOSIS, UNSPECIFIED 10/17/2019 DEDRA, MARQUIS R FIELD TAX AUDITOR Ot L03.116 CELLULITIS OF LEFT LOWER LIMB 10/17/2019 DEDRA, MARQUIS R FIELD TAX AUDITOR Ot L97.122 NON-PRESSURE CHRONIC ULCER OF LEFT THIGH 10/17/2019 DEDRA MARQUIS R FIELD TAX AUDITOR Ot Z89.512 ACQUIRED ABSENCE OF LEFT LEG BELOW KNEE 10/17/2019 DEDRA MARQUIS R FIELD TAX AUDITOR Ot B36.9 SUPERFICIAL MYCOSIS, UNSPECIFIED 10/17/2019 DEDRA MARQUIS R FIELD TAX AUDITOR Ot L03.116 CELLULITIS OF LEFT LOWER LIMB 10/17/2019 DEDRA MARQUIS R FIELD TAX AUDITOR Ot L97.122 NON-PRESSURE CHRONIC ULCER OF LEFT THIGH 10/17/2019 DEDRA MARQUIS R FIELD TAX AUDITOR Ot Z89.512 ACQUIRED ABSENCE OF LEFT LEG BELOW KNEE 10/17/2019 DEDRA MARQUIS R FIELD TAX AUDITOR Ot B36.9 SUPERFICIAL MYCOSIS, UNSPECIFIED 10/17/2019 DEDRA, MARQUIS R FIELD TAX AUDITOR Ot L03.116 CELLULITIS OF LEFT LOWER LIMB 10/17/2019 DEDRA MARQUIS R FIELD TAX AUDITOR Ot L97.122 NON-PRESSURE CHRONIC ULCER OF LEFT THIGH 10/17/2019 DEDRA MARQUIS R FIELD TAX AUDITOR Ot Z89.512 ACQUIRED ABSENCE OF LEFT LEG BELOW KNEE 10/17/2019 DEDRA MARQUIS R FIELD TAX AUDITOR Ot B36.9 SUPERFICIAL MYCOSIS, UNSPECIFIED 10/17/2019 DEDRA, MARQUIS R FIELD TAX AUDITOR Ot L03.116 CELLULITIS OF LEFT LOWER LIMB 10/17/2019 DEDRA MARQUIS R FIELD TAX AUDITOR Ot L97.121 NON-PRS CHRONIC ULCER OF LEFT THIGH LIMI 10/17/2019 DEDRA MARQUIS R FIELD TAX AUDITOR Ot L97.122 NON-PRESSURE CHRONIC ULCER OF LEFT THIGH 10/17/2019 DEDRA MARQUIS R FIELD TAX AUDITOR Ot Z89.512 ACQUIRED ABSENCE OF LEFT LEG BELOW KNEE 10/17/2019 DEDRA MARQUIS R FIELD TAX AUDITOR Ot B36.9 SUPERFICIAL MYCOSIS, UNSPECIFIED 10/17/2019 DEDRA MARQUIS R FIELD TAX AUDITOR Ot L03.116 CELLULITIS OF LEFT LOWER LIMB 10/17/2019 DEDRA MARQUIS R FIELD TAX AUDITOR Ot L97.121 NON-PRS CHRONIC ULCER OF LEFT THIGH LIMI 10/17/2019 DEDRA MARQUIS R FIELD TAX AUDITOR Ot L97.122 NON-PRESSURE CHRONIC ULCER OF LEFT THIGH 10/17/2019 DEDRA MARQUIS R FIELD TAX AUDITOR Ot Z89.512 ACQUIRED ABSENCE OF LEFT LEG BELOW KNEE 10/17/2019 DEDRA MARQUIS R FIELD TAX AUDITOR Ot B36.9 SUPERFICIAL MYCOSIS, UNSPECIFIED 10/17/2019 DEDRA MARQUIS R FIELD TAX AUDITOR Ot L03.116 CELLULITIS OF LEFT LOWER LIMB 10/17/2019 DEDRA MARQUIS R FIELD TAX AUDITOR Ot L97.121 NON-PRS CHRONIC ULCER OF LEFT THIGH LIMI 10/17/2019 DEDRA MARQUIS R FIELD TAX AUDITOR Ot L97.122 NON-PRESSURE CHRONIC ULCER OF LEFT THIGH 10/17/2019 DEDRA MARQUIS R FIELD TAX AUDITOR Ot Z89.512 ACQUIRED ABSENCE OF LEFT LEG BELOW KNEE 10/17/2019 DEDRA MARQUIS R FIELD TAX AUDITOR Ot B36.9 SUPERFICIAL MYCOSIS, UNSPECIFIED 10/17/2019 DEDRA MARQUIS R FIELD TAX AUDITOR Ot L03.116 CELLULITIS OF LEFT LOWER LIMB 10/17/2019 DEDRA MARQUIS R FIELD TAX AUDITOR Ot L97.121 NON-PRS CHRONIC ULCER OF LEFT THIGH LIMI 10/17/2019 DEDRA MARQUIS R FIELD TAX AUDITOR Ot Z89.512 ACQUIRED ABSENCE OF LEFT LEG BELOW KNEE 10/17/2019 DEDRA MARQUIS R FIELD TAX AUDITOR Ot B36.9 SUPERFICIAL MYCOSIS, UNSPECIFIED 10/17/2019 DEDRA MARQUIS R FIELD TAX AUDITOR Ot L03.116 CELLULITIS OF LEFT LOWER LIMB 10/17/2019 DEDRA MARQUIS R FIELD TAX AUDITOR Ot L97.121 NON-PRS CHRONIC ULCER OF LEFT THIGH LIMI 10/17/2019 DEDRA MARQUIS R FIELD TAX AUDITOR Ot Z89.512 ACQUIRED ABSENCE OF LEFT LEG BELOW KNEE 10/17/2019 DEDRA MARQUIS R FIELD TAX AUDITOR Ot B36.9 SUPERFICIAL MYCOSIS, UNSPECIFIED 10/17/2019 DEDRA MARQUIS R FIELD TAX AUDITOR Ot L03.116 CELLULITIS OF LEFT LOWER LIMB 10/17/2019 DEDRA MARQUIS R FIELD TAX AUDITOR Ot L97.122 NON-PRESSURE CHRONIC ULCER OF LEFT THIGH 10/17/2019 MARQUIS COLMENARES APRN Ot Z89.512 ACQUIRED ABSENCE OF LEFT LEG BELOW KNEE 10/17/2019 MARQUIS COLMENARES FIELD TAX AUDITOR Ot Z51.81 ENCOUNTER FOR THERAPEUTIC DRUG LEVEL MON 10/17/2019 MARQUIS COLMENARES APRN Ot Z79.899 OTHER WINE MASTER (CURRENT) DRUG THERAPY 10/17/2019 KIANNA PERES MD, Ot E11.622 TYPE 2 DIABETES MELLITUS WITH OTHER SKIN 10/17/2019 KIANNA PERES MD, Ot 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 10/17/2019 KIANNA PERES MD, Ot L97.212 NON-PRESSURE CHRONIC ULCER OF RIGHT CALF 10/17/2019 KIANNA PERES MD, Ot 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 RIGHT LEG BELOW KNEE 10/17/2019 KIANNA PERES MD, Ot Z89.512 ACQUIRED ABSENCE OF LEFT LEG BELOW KNEE 10/17/2019 KIANNA PEERS MD, Ot E11.622 TYPE 2 DIABETES MELLITUS [...] 11/11/2019 MARQUIS COLMENARES APRN Ot Z79.899 OTHER WINE MASTER (CURRENT) DRUG THERAPY 11/11/2019 GALO GRIFFIN DO [...] HISTORY OF ANTINEOPLASTIC CHEMO 11/18/2019 MARQUIS COLMENARES FIELD TAX AUDITOR Ot L03.116 CELLULITIS OF LEFT LOWER LIMB 11/18/2019 MARQUIS COLMENARES FIELD TAX AUDITOR Ot Z89.512 ACQUIRED ABSENCE OF LEFT LEG BELOW KNEE 11/18/2019 DEDRA, MARQUIS R FIELD TAX AUDITOR Ot B36.9 SUPERFICIAL MYCOSIS, UNSPECIFIED 11/18/2019 DEDRA, MARQUIS R FIELD TAX AUDITOR Ot L03.116 CELLULITIS OF LEFT LOWER LIMB 11/18/2019 DEDRA, MARQUIS R FIELD TAX AUDITOR Ot L97.122 NON-PRESSURE CHRONIC ULCER OF LEFT THIGH 11/18/2019 DEDRA, MARQUIS R FIELD TAX AUDITOR Ot Z89.512 ACQUIRED ABSENCE OF LEFT LEG BELOW KNEE 11/18/2019 DEDRA, MARQUIS R FIELD TAX AUDITOR Ot B36.9 SUPERFICIAL MYCOSIS, UNSPECIFIED 11/18/2019 DEDRA, MARQUIS R FIELD TAX AUDITOR Ot L03.116 CELLULITIS OF LEFT LOWER LIMB 11/18/2019 DEDRA, MARQUIS R FIELD TAX AUDITOR Ot L97.122 NON-PRESSURE CHRONIC ULCER OF LEFT THIGH 11/18/2019 DEDRA, MARUQIS R FIELD TAX AUDITOR Ot Z89.512 ACQUIRED ABSENCE OF LEFT LEG BELOW KNEE 11/18/2019 DEDRA, MARQUIS R FIELD TAX AUDITOR Ot B36.9 SUPERFICIAL MYCOSIS, UNSPECIFIED 11/18/2019 DEDRA, MARQUIS R FIELD TAX AUDITOR Ot L03.116 CELLULITIS OF LEFT LOWER LIMB 11/18/2019 DEDRA, MARQUIS R FIELD TAX AUDITOR Ot L97.122 NON-PRESSURE CHRONIC ULCER OF LEFT THIGH 11/18/2019 DEDRA, MARQUIS R FIELD TAX AUDITOR Ot Z89.512 ACQUIRED ABSENCE OF LEFT LEG BELOW KNEE 11/18/2019 DEDRA, MARQUIS R FIELD TAX AUDITOR Ot B36.9 SUPERFICIAL MYCOSIS, UNSPECIFIED 11/18/2019 DEDRA, MARQUIS R FIELD TAX AUDITOR Ot L03.116 CELLULITIS OF LEFT LOWER LIMB 11/18/2019 DEDRA, MARQUIS R FIELD TAX AUDITOR Ot L97.122 NON-PRESSURE CHRONIC ULCER OF LEFT THIGH 11/18/2019 DEDRA, MARQUIS R FIELD TAX AUDITOR Ot Z89.512 ACQUIRED ABSENCE OF LEFT LEG BELOW KNEE 11/18/2019 DEDRA, MARQUIS R FIELD TAX AUDITOR Ot B36.9 SUPERFICIAL MYCOSIS, UNSPECIFIED 11/18/2019 DEDRA, MARQUIS R FIELD TAX AUDITOR Ot L03.116 CELLULITIS OF LEFT LOWER LIMB 11/18/2019 DEDRA, MARQUIS R FIELD TAX AUDITOR Ot L97.122 NON-PRESSURE CHRONIC ULCER OF LEFT THIGH 11/18/2019 DEDRA, MARQUIS R FIELD TAX AUDITOR Ot Z89.512 ACQUIRED ABSENCE OF LEFT LEG BELOW KNEE 11/18/2019 DEDRA, MARQUIS R FIELD TAX AUDITOR Ot B36.9 SUPERFICIAL MYCOSIS, UNSPECIFIED 11/18/2019 DEDRA, MARQUIS R FIELD TAX AUDITOR Ot L03.116 CELLULITIS OF LEFT LOWER LIMB 11/18/2019 DEDRA MARQUIS R FIELD TAX AUDITOR Ot L97.121 NON-PRS CHRONIC ULCER OF LEFT THIGH LIMI 11/18/2019 DEDRA, MARQUIS R FIELD TAX AUDITOR Ot L97.122 NON-PRESSURE CHRONIC ULCER OF LEFT THIGH 11/18/2019 DEDRA MARQUIS R FIELD TAX AUDITOR Ot Z89.512 ACQUIRED ABSENCE OF LEFT LEG BELOW KNEE 11/18/2019 DEDRA MARQUIS R FIELD TAX AUDITOR Ot B36.9 SUPERFICIAL MYCOSIS, UNSPECIFIED 11/18/2019 DEDRA MARQUIS R FIELD TAX AUDITOR Ot L03.116 CELLULITIS OF LEFT LOWER LIMB 11/18/2019 DEDRA, MARQUIS R FIELD TAX AUDITOR Ot L97.121 NON-PRS CHRONIC ULCER OF LEFT THIGH LIMI 11/18/2019 DEDRA, MARQUIS R FIELD TAX AUDITOR Ot L97.122 NON-PRESSURE CHRONIC ULCER OF LEFT THIGH 11/18/2019 DEDRA MARQUIS R FIELD TAX AUDITOR Ot Z89.512 ACQUIRED ABSENCE OF LEFT LEG BELOW KNEE 11/18/2019 DEDRA MARQUIS R FIELD TAX AUDITOR Ot B36.9 SUPERFICIAL MYCOSIS, UNSPECIFIED 11/18/2019 DEDRA MARQUIS R FIELD TAX AUDITOR Ot L03.116 CELLULITIS OF LEFT LOWER LIMB 11/18/2019 DEDRA MARQUIS R FIELD TAX AUDITOR Ot L97.121 NON-PRS CHRONIC ULCER OF LEFT THIGH LIMI 11/18/2019 DEDRA MARQUIS R FIELD TAX AUDITOR Ot L97.122 NON-PRESSURE CHRONIC ULCER OF LEFT THIGH 11/18/2019 DEDRA MARQUIS R FIELD TAX AUDITOR Ot Z89.512 ACQUIRED ABSENCE OF LEFT LEG BELOW KNEE 11/18/2019 DEDRA MARQUIS R FIELD TAX AUDITOR Ot B36.9 SUPERFICIAL MYCOSIS, UNSPECIFIED 11/18/2019 DEDRA MARQUIS R FIELD TAX AUDITOR Ot L03.116 CELLULITIS OF LEFT LOWER LIMB 11/18/2019 DEDRA MARQUIS R FIELD TAX AUDITOR Ot L97.121 NON-PRS CHRONIC ULCER OF LEFT THIGH LIMI 11/18/2019 DEDRA, MARQUIS R FIELD TAX AUDITOR Ot Z89.512 ACQUIRED ABSENCE OF LEFT LEG BELOW KNEE 11/18/2019 DEDRA, MARQUIS R FIELD TAX AUDITOR Ot B36.9 SUPERFICIAL MYCOSIS, UNSPECIFIED 11/18/2019 DEDRA, MARQUIS R FIELD TAX AUDITOR Ot L03.116 CELLULITIS OF LEFT LOWER LIMB 11/18/2019 DEDRA, MARQUIS R FIELD TAX AUDITOR Ot L97.121 NON-PRS CHRONIC ULCER OF LEFT THIGH LIMI 11/18/2019 MARQUIS COLMENARES FIELD TAX AUDITOR Ot Z89.512 ACQUIRED ABSENCE OF LEFT LEG BELOW KNEE 11/18/2019 MARQUIS COLMENARES FIELD TAX AUDITOR Ot B36.9 SUPERFICIAL MYCOSIS, UNSPECIFIED 11/18/2019 MARQUIS COLMENARES FIELD TAX AUDITOR Ot L03.116 CELLULITIS OF LEFT LOWER LIMB 11/18/2019 MARQUIS COLMENARES FIELD TAX AUDITOR Ot L97.122 NON-PRESSURE CHRONIC ULCER OF LEFT THIGH 11/18/2019 MARQUIS COLMENARES FIELD TAX AUDITOR Ot Z89.512 ACQUIRED ABSENCE OF LEFT LEG BELOW KNEE 11/18/2019 MARQUIS COLMENARES FIELD TAX AUDITOR Ot Z51.81 ENCOUNTER FOR THERAPEUTIC DRUG LEVEL MON 11/18/2019 MARQUIS COLMENARES FIELD TAX AUDITOR Ot Z79.899 OTHER SHELTER (CURRENT) DRUG THERAPY 11/18/2019 KIANNA PERES MD, Ot E11.622 TYPE 2 DIABETES MELLITUS WITH OTHER SKIN 11/18/2019 KIANNA PERES MD, Ot 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 4 SHELTER (CURRENT) USE OF INSULIN 11/21/2019 BRET ARREDONDO MD Ot Z79. 82 SHELTER (CURRENT) USE OF ASPIRIN 11/21/2019 BRET ARREDONDO MD, Ot Z79.899 OTHER WINE MASTER (CURRENT) DRUG THERAPY 11/21/2019 BRET ARREDONDO MD, [...] 11/24/2019 BRET ARREDONDO MD Ot Z79. 4 WINE MASTER (CURRENT) USE OF INSULIN 11/24/2019 BRET ARREDONDO MD Ot Z79. 82 WINE MASTER (CURRENT) USE OF ASPIRIN 11/24/2019 BRET ARREDONDO MD Ot Z79.899 OTHER WINE MASTER (CURRENT) DRUG THERAPY 11/24/2019 BRET ARREDONDO MD Ot Z85.038 PERSONAL HISTORY OF MALIGNANT NEOPLASM O 11/24/2019 BRET ARERDONDO MD Ot Z86. 73 PRSNL HX OF [...] 11/27/2019 BRET ARREDONDO MD Ot Z79. 4 WINE MASTER (CURRENT) USE OF INSULIN 11/27/2019 BRET ARREDONDO MD Ot Z79. 82 WINE MASTER (CURRENT) USE OF ASPIRIN 11/27/2019 BRET ARREDONDO MD Ot Z79.899 OTHER SHELTER (CURRENT) DRUG THERAPY 11/27/2019 BRET ARREDONDO MD [...] 12/09/2019 BRET ARREDONDO MD Ot Z79. 4 SHELTER (CURRENT) USE OF INSULIN 12/09/2019 BRET ARREDONDO MD Ot Z79. 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 02 SHELTER (CURRENT) USE OF ANTITHROMBOTI 12/19/2019 BRET ARREDONDO MD Ot Z79. 4 SHELTER (CURRENT) USE OF INSULIN 12/19/2019 BRET ARREDONDO MD Ot Z79. 82 SHELTER (CURRENT) USE OF ASPIRIN 12/19/2019 BRET ARREDONDO MD Ot Z85.038 PERSONAL HISTORY OF MALIGNANT NEOPLASM O 12/19/2019 BRET ARREDONDO MD, Ot Z86. 73 PRSNL HX OF TIA (TIA), AND CEREB INFRC W 12/19/2019 DEDRA MARQUIS R FIELD TAX AUDITOR Ot L03.116 CELLULITIS OF LEFT LOWER LIMB 12/19/2019 DEDRA MARQUIS R FIELD TAX AUDITOR Ot Z89.512 ACQUIRED ABSENCE OF LEFT LEG BELOW KNEE 12/19/2019 DEDRA MARQUIS R FIELD TAX AUDITOR Ot B36.9 SUPERFICIAL MYCOSIS, UNSPECIFIED 12/19/2019 DEDRA MARQUIS R FIELD TAX AUDITOR Ot L03.116 CELLULITIS OF LEFT LOWER LIMB 12/19/2019 DEDRA, MARQUIS R FIELD TAX AUDITOR Ot L97.122 NON-PRESSURE CHRONIC ULCER OF LEFT THIGH 12/19/2019 DEDRA MARQUIS R FIELD TAX AUDITOR Ot Z89.512 ACQUIRED ABSENCE OF LEFT LEG BELOW KNEE 12/19/2019 DEDRA MARQUIS R FIELD TAX AUDITOR Ot B36.9 SUPERFICIAL MYCOSIS, UNSPECIFIED 12/19/2019 DEDRA, MARQUIS R FIELD TAX AUDITOR Ot L03.116 CELLULITIS OF LEFT LOWER LIMB 12/19/2019 DEDRA MARQUIS R FIELD TAX AUDITOR Ot L97.122 NON-PRESSURE CHRONIC ULCER OF LEFT THIGH 12/19/2019 DEDRA MARQUIS R FIELD TAX AUDITOR Ot Z89.512 ACQUIRED ABSENCE OF LEFT LEG BELOW KNEE 12/19/2019 DEDRA MARQUIS R FIELD TAX AUDITOR Ot B36.9 SUPERFICIAL MYCOSIS, UNSPECIFIED 12/19/2019 DEDRA MARQUIS R FIELD TAX AUDITOR Ot L03.116 CELLULITIS OF LEFT LOWER LIMB 12/19/2019 DEDRA MARQUIS R FIELD TAX AUDITOR Ot L97.122 NON-PRESSURE CHRONIC ULCER OF LEFT THIGH 12/19/2019 DEDRA MARQUIS R FIELD TAX AUDITOR Ot Z89.512 ACQUIRED ABSENCE OF LEFT LEG BELOW KNEE 12/19/2019 DEDRA MARQUIS R FIELD TAX AUDITOR Ot B36.9 SUPERFICIAL MYCOSIS, UNSPECIFIED 12/19/2019 DEDRA MARQUIS R FIELD TAX AUDITOR Ot L03.116 CELLULITIS OF LEFT LOWER LIMB 12/19/2019 DEDRA MARQUIS R FIELD TAX AUDITOR Ot L97.122 NON-PRESSURE CHRONIC ULCER OF LEFT THIGH 12/19/2019 DEDRA MARQUIS R FIELD TAX AUDITOR Ot Z89.512 ACQUIRED ABSENCE OF LEFT LEG BELOW KNEE 12/19/2019 DEDRA MARQUIS R FIELD TAX AUDITOR Ot B36.9 SUPERFICIAL MYCOSIS, UNSPECIFIED 12/19/2019 DEDRA MARQUIS R FIELD TAX AUDITOR Ot L03.116 CELLULITIS OF LEFT LOWER LIMB 12/19/2019 DEDRA, MARQUIS R FIELD TAX AUDITOR Ot L97.122 NON-PRESSURE CHRONIC ULCER OF LEFT THIGH 12/19/2019 DEDRA MARQUIS R FIELD TAX AUDITOR Ot Z89.512 ACQUIRED ABSENCE OF LEFT LEG BELOW KNEE 12/19/2019 DEDRA MARQUIS R FIELD TAX AUDITOR Ot B36.9 SUPERFICIAL MYCOSIS, UNSPECIFIED 12/19/2019 DEDRA MARQUIS R FIELD TAX AUDITOR Ot L03.116 CELLULITIS OF LEFT LOWER LIMB 12/19/2019 DEDRA MARQUIS R FIELD TAX AUDITOR Ot L97.121 NON-PRS CHRONIC ULCER OF LEFT THIGH LIMI 12/19/2019 DEDRA, MARQUIS R FIELD TAX AUDITOR Ot L97.122 NON-PRESSURE CHRONIC ULCER OF LEFT THIGH 12/19/2019 DEDRA MARQUIS R FIELD TAX AUDITOR Ot Z89.512 ACQUIRED ABSENCE OF LEFT LEG BELOW KNEE 12/19/2019 DEDRA MARQUIS R FIELD TAX AUDITOR Ot B36.9 SUPERFICIAL MYCOSIS, UNSPECIFIED 12/19/2019 DEDRA MARQUIS R FIELD TAX AUDITOR Ot L03.116 CELLULITIS OF LEFT LOWER LIMB 12/19/2019 DEDRA MARQUIS R FIELD TAX AUDITOR Ot L97.121 NON-PRS CHRONIC ULCER OF LEFT THIGH LIMI 12/19/2019 DEDRA MARQUIS R FIELD TAX AUDITOR Ot L97.122 NON-PRESSURE CHRONIC ULCER OF LEFT THIGH 12/19/2019 DEDRA MARQUIS R FIELD TAX AUDITOR Ot Z89.512 ACQUIRED ABSENCE OF LEFT LEG BELOW KNEE 12/19/2019 DEDRA MARQUIS R FIELD TAX AUDITOR Ot B36.9 SUPERFICIAL MYCOSIS, UNSPECIFIED 12/19/2019 DEDRA MARQUIS R FIELD TAX AUDITOR Ot L03.116 CELLULITIS OF LEFT LOWER LIMB 12/19/2019 DEDRA MARQUIS R FIELD TAX AUDITOR Ot L97.121 NON-PRS CHRONIC ULCER OF LEFT THIGH LIMI 12/19/2019 DEDRA, MARQUIS R FIELD TAX AUDITOR Ot L97.122 NON-PRESSURE CHRONIC ULCER OF LEFT THIGH 12/19/2019 DEDRA MARQUIS R FIELD TAX AUDITOR Ot Z89.512 ACQUIRED ABSENCE OF LEFT LEG BELOW KNEE 12/19/2019 DEDRA MARQUIS R FIELD TAX AUDITOR Ot B36.9 SUPERFICIAL MYCOSIS, UNSPECIFIED 12/19/2019 DEDRA, MARQUIS R FIELD TAX AUDITOR Ot L03.116 CELLULITIS OF LEFT LOWER LIMB 12/19/2019 DEDRA MARQUIS R FIELD TAX AUDITOR Ot L97.121 NON-PRS CHRONIC ULCER OF LEFT THIGH LIMI 12/19/2019 DEDRA, MARQUIS R FIELD TAX AUDITOR Ot Z89.512 ACQUIRED ABSENCE OF LEFT LEG BELOW KNEE 12/19/2019 DEDRA, MARQUIS R FIELD TAX AUDITOR Ot B36.9 SUPERFICIAL MYCOSIS, UNSPECIFIED 12/19/2019 DEDRA, MARQUIS R FIELD TAX AUDITOR Ot L03.116 CELLULITIS OF LEFT LOWER LIMB 12/19/2019 DEDRA MARQUIS R FIELD TAX AUDITOR Ot L97.121 NON-PRS CHRONIC ULCER OF LEFT THIGH LIMI 12/19/2019 DEDRA MARQUIS R FIELD TAX AUDITOR Ot Z89.512 ACQUIRED ABSENCE OF LEFT LEG BELOW KNEE 12/19/2019 DEDRA, MARQUIS R FIELD TAX AUDITOR Ot B36.9 SUPERFICIAL MYCOSIS, UNSPECIFIED 12/19/2019 DEDRA, MARQUIS R FIELD TAX AUDITOR Ot L03.116 CELLULITIS OF LEFT LOWER LIMB 12/19/2019 DEDRA MARQUIS R FIELD TAX AUDITOR Ot L97.122 NON-PRESSURE CHRONIC ULCER OF LEFT THIGH 12/19/2019 DEDRA MARQIUS R FIELD TAX AUDITOR Ot Z89.512 ACQUIRED ABSENCE OF LEFT LEG BELOW KNEE 12/19/2019 DEDRA MARQUIS R FIELD TAX AUDITOR Ot Z51.81 ENCOUNTER FOR THERAPEUTIC DRUG LEVEL MON 12/19/2019 DEDRA MARQUIS R FIELD TAX AUDITOR Ot Z79.899 OTHER SHELTER (CURRENT) DRUG THERAPY 12/19/2019 KIANNA PERES MD Ot E11.622 TYPE 2 DIABETES MELLITUS WITH OTHER SKIN 12/19/2019 KIANNA PERES MD Ot 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 02 WINE MASTER (CURRENT) USE OF ANTITHROMBOTI 12/22/2019 BRET ARREDONDO MD Ot Z79. 4 WINE MASTER (CURRENT) USE OF INSULIN 12/22/2019 BRET ARREDONDO MD, Ot Z79. 82 SHELTER (CURRENT) USE OF ASPIRIN 12/22/2019 BRET ARREDONDO MD, Ot Z85.038 PERSONAL HISTORY OF MALIGNANT NEOPLASM O 12/22/2019 BRET ARREDONDO MD, Ot Z86. 73 PRSNL HX OF TIA (TIA), AND CEREB INFRC W 12/29/2019 MARQUIS COLMENARES APRN Ot L03.116 CELLULITIS OF LEFT LOWER LIMB 12/29/2019 DEDRA, MARQUIS R FIELD TAX AUDITOR Ot Z89.512 ACQUIRED ABSENCE OF LEFT LEG BELOW KNEE 12/29/2019 DEDRA, MARQUIS R FIELD TAX AUDITOR Ot B36.9 SUPERFICIAL MYCOSIS, UNSPECIFIED 12/29/2019 DEDRA, MARQUIS R FIELD TAX AUDITOR Ot L03.116 CELLULITIS OF LEFT LOWER LIMB 12/29/2019 DEDRA, MARQUIS R FIELD TAX AUDITOR Ot L97.122 NON-PRESSURE CHRONIC ULCER OF LEFT THIGH 12/29/2019 EDDRA, MARQUIS R FIELD TAX AUDITOR Ot Z89.512 ACQUIRED ABSENCE OF LEFT LEG BELOW KNEE 12/29/2019 DEDRA, MARQUIS R FIELD TAX AUDITOR Ot B36.9 SUPERFICIAL MYCOSIS, UNSPECIFIED 12/29/2019 DEDRA, MARQUIS R FIELD TAX AUDITOR Ot L03.116 CELLULITIS OF LEFT LOWER LIMB 12/29/2019 DEDRA, MARQUIS R FIELD TAX AUDITOR Ot L97.122 NON-PRESSURE CHRONIC ULCER OF LEFT THIGH 12/29/2019 DEDRA, MARQUIS R FIELD TAX AUDITOR Ot Z89.512 ACQUIRED ABSENCE OF LEFT LEG BELOW KNEE 12/29/2019 DEDRA, MARQUIS R FIELD TAX AUDITOR Ot B36.9 SUPERFICIAL MYCOSIS, UNSPECIFIED 12/29/2019 DEDRA, MARQUIS R FIELD TAX AUDITOR Ot L03.116 CELLULITIS OF LEFT LOWER LIMB 12/29/2019 DEDRA, MARQUIS R FIELD TAX AUDITOR Ot L97.122 NON-PRESSURE CHRONIC ULCER OF LEFT THIGH 12/29/2019 DEDRA, MARQUIS R FIELD TAX AUDITOR Ot Z89.512 ACQUIRED ABSENCE OF LEFT LEG BELOW KNEE 12/29/2019 DEDRA, MARQUIS R FIELD TAX AUDITOR Ot B36.9 SUPERFICIAL MYCOSIS, UNSPECIFIED 12/29/2019 DEDRA, MARQUIS R FIELD TAX AUDITOR Ot L03.116 CELLULITIS OF LEFT LOWER LIMB 12/29/2019 DEDRA, MARQUIS R FIELD TAX AUDITOR Ot L97.122 NON-PRESSURE CHRONIC ULCER OF LEFT THIGH 12/29/2019 DEDRA, MARQUIS R FIELD TAX AUDITOR Ot Z89.512 ACQUIRED ABSENCE OF LEFT LEG BELOW KNEE 12/29/2019 DEDRA, MARQUIS R FIELD TAX AUDITOR Ot B36.9 SUPERFICIAL MYCOSIS, UNSPECIFIED 12/29/2019 DEDRA, MARQUIS R FIELD TAX AUDITOR Ot L03.116 CELLULITIS OF LEFT LOWER LIMB 12/29/2019 DEDRA, MARQUIS R FIELD TAX AUDITOR Ot L97.122 NON-PRESSURE CHRONIC ULCER OF LEFT THIGH 12/29/2019 DEDRA, MARQUIS R FIELD TAX AUDITOR Ot Z89.512 ACQUIRED ABSENCE OF LEFT LEG BELOW KNEE 12/29/2019 DEDRA, MARQUIS R FIELD TAX AUDITOR Ot B36.9 SUPERFICIAL MYCOSIS, UNSPECIFIED 12/29/2019 DEDRA MARQUIS R FIELD TAX AUDITOR Ot L03.116 CELLULITIS OF LEFT LOWER LIMB 12/29/2019 DEDRA MARQUIS R FIELD TAX AUDITOR Ot L97.121 NON-PRS CHRONIC ULCER OF LEFT THIGH LIMI 12/29/2019 DEDRA MARQUIS R FIELD TAX AUDITOR Ot L97.122 NON-PRESSURE CHRONIC ULCER OF LEFT THIGH 12/29/2019 DEDRA MARQUIS R FIELD TAX AUDITOR Ot Z89.512 ACQUIRED ABSENCE OF LEFT LEG BELOW KNEE 12/29/2019 DEDRA MARQUIS R FIELD TAX AUDITOR Ot B36.9 SUPERFICIAL MYCOSIS, UNSPECIFIED 12/29/2019 DEDRA MARQUIS R FIELD TAX AUDITOR Ot L03.116 CELLULITIS OF LEFT LOWER LIMB 12/29/2019 DEDRA MARQUIS R FIELD TAX AUDITOR Ot L97.121 NON-PRS CHRONIC ULCER OF LEFT THIGH LIMI 12/29/2019 DEDRA MARQUIS R FIELD TAX AUDITOR Ot L97.122 NON-PRESSURE CHRONIC ULCER OF LEFT THIGH 12/29/2019 PASCUAL COLMENARESN R FIELD TAX AUDITOR Ot Z89.512 ACQUIRED ABSENCE OF LEFT LEG BELOW KNEE 12/29/2019 DEDRA MARQUIS R FIELD TAX AUDITOR Ot B36.9 SUPERFICIAL MYCOSIS, UNSPECIFIED 12/29/2019 DEDRA MARQUIS R FIELD TAX AUDITOR Ot L03.116 CELLULITIS OF LEFT LOWER LIMB 12/29/2019 PASCUAL COLMENARESN R FIELD TAX AUDITOR Ot L97.121 NON-PRS CHRONIC ULCER OF LEFT THIGH LIMI 12/29/2019 DEDRA MARQUIS R FIELD TAX AUDITOR Ot L97.122 NON-PRESSURE CHRONIC ULCER OF LEFT THIGH 12/29/2019 PASCUAL COLMENARESN R FIELD TAX AUDITOR Ot Z89.512 ACQUIRED ABSENCE OF LEFT LEG BELOW KNEE 12/29/2019 MARQUIS COLMENARES R FIELD TAX AUDITOR Ot B36.9 SUPERFICIAL MYCOSIS, UNSPECIFIED 12/29/2019 DEDRA MARQUIS R FIELD TAX AUDITOR Ot L03.116 CELLULITIS OF LEFT LOWER LIMB 12/29/2019 DEDRA MARQUIS R FIELD TAX AUDITOR Ot L97.121 NON-PRS CHRONIC ULCER OF LEFT THIGH LIMI 12/29/2019 DEDRA MARQUIS R FIELD TAX AUDITOR Ot Z89.512 ACQUIRED ABSENCE OF LEFT LEG BELOW KNEE 12/29/2019 DEDRA MARQUIS R FIELD TAX AUDITOR Ot B36.9 SUPERFICIAL MYCOSIS, UNSPECIFIED 12/29/2019 DEDRA MARQUIS R FIELD TAX AUDITOR Ot L03.116 CELLULITIS OF LEFT LOWER LIMB 12/29/2019 MARQUIS COLMENARES FIELD TAX AUDITOR Ot L97.121 NON-PRS CHRONIC ULCER OF LEFT THIGH LIMI 12/29/2019 MARQUIS COLMENARES R FIELD TAX AUDITOR Ot Z89.512 ACQUIRED ABSENCE OF LEFT LEG BELOW KNEE 12/29/2019 MARQUIS COLMENARES R FIELD TAX AUDITOR Ot B36.9 SUPERFICIAL MYCOSIS, UNSPECIFIED 12/29/2019 MARQUIS COLMENARES R FIELD TAX AUDITOR Ot L03.116 CELLULITIS OF LEFT LOWER LIMB 12/29/2019 MARQUIS COLMENARES R FIELD TAX AUDITOR Ot L97.122 NON-PRESSURE CHRONIC ULCER OF LEFT THIGH 12/29/2019 DEDRA MARQUIS R FIELD TAX AUDITOR Ot Z89.512 ACQUIRED ABSENCE OF LEFT LEG BELOW KNEE 12/29/2019 MARQUIS COLMENARES FIELD TAX AUDITOR Ot Z51.81 ENCOUNTER FOR THERAPEUTIC DRUG LEVEL MON 12/29/2019 MARQUIS COLMENARES FIELD TAX AUDITOR Ot Z79.899 OTHER WINE MASTER (CURRENT) DRUG THERAPY 12/29/2019 KIANNA PERES MD, Ot E11.622 TYPE 2 DIABETES MELLITUS WITH OTHER SKIN 12/29/2019 KIANNA PERES MD, Ot 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 12/29/2019 [...] MALIGNANT NEOPLASM OF 12/30/2019 DEDRA, MARQUIS R FIELD TAX AUDITOR Ot L03.116 CELLULITIS OF LEFT LOWER LIMB 12/30/2019 DEDRA MARQUIS R FIELD TAX AUDITOR Ot Z89.512 ACQUIRED ABSENCE OF LEFT LEG BELOW KNEE 12/30/2019 DEDRA, MARQUIS R FIELD TAX AUDITOR Ot B36.9 SUPERFICIAL MYCOSIS, UNSPECIFIED 12/30/2019 DEDRA, MARQUIS R FIELD TAX AUDITOR Ot L03.116 CELLULITIS OF LEFT LOWER LIMB 12/30/2019 DEDRA, MARQUIS R FIELD TAX AUDITOR Ot L97.122 NON-PRESSURE CHRONIC ULCER OF LEFT THIGH 12/30/2019 DEDRA, MARQUIS R FIELD TAX AUDITOR Ot Z89.512 ACQUIRED ABSENCE OF LEFT LEG BELOW KNEE 12/30/2019 DEDRA, MARQUIS R FIELD TAX AUDITOR Ot B36.9 SUPERFICIAL MYCOSIS, UNSPECIFIED 12/30/2019 DEDRA, MARQUIS R FIELD TAX AUDITOR Ot L03.116 CELLULITIS OF LEFT LOWER LIMB 12/30/2019 DEDRA, MARQUIS R FIELD TAX AUDITOR Ot L97.122 NON-PRESSURE CHRONIC ULCER OF LEFT THIGH 12/30/2019 DEDRA, MARQUIS R FIELD TAX AUDITOR Ot Z89.512 ACQUIRED ABSENCE OF LEFT LEG BELOW KNEE 12/30/2019 DEDRA, MARQUIS R FIELD TAX AUDITOR Ot B36.9 SUPERFICIAL MYCOSIS, UNSPECIFIED 12/30/2019 DEDRA, MARQUIS R FIELD TAX AUDITOR Ot L03.116 CELLULITIS OF LEFT LOWER LIMB 12/30/2019 DEDRA, MARQUIS R FIELD TAX AUDITOR Ot L97.122 NON-PRESSURE CHRONIC ULCER OF LEFT THIGH 12/30/2019 DEDRA, MARQUIS R FIELD TAX AUDITOR Ot Z89.512 ACQUIRED ABSENCE OF LEFT LEG BELOW KNEE 12/30/2019 DEDRA, MARQUIS R FIELD TAX AUDITOR Ot B36.9 SUPERFICIAL MYCOSIS, UNSPECIFIED 12/30/2019 DEDRA, MARQUIS R FIELD TAX AUDITOR Ot L03.116 CELLULITIS OF LEFT LOWER LIMB 12/30/2019 DEDRA, MARQUIS R FIELD TAX AUDITOR Ot L97.122 NON-PRESSURE CHRONIC ULCER OF LEFT THIGH 12/30/2019 DEDRA, MARQUIS R FIELD TAX AUDITOR Ot Z89.512 ACQUIRED ABSENCE OF LEFT LEG BELOW KNEE 12/30/2019 DEDRA, MARQUIS R FIELD TAX AUDITOR Ot B36.9 SUPERFICIAL MYCOSIS, UNSPECIFIED 12/30/2019 DEDRA, MARQUIS R FIELD TAX AUDITOR Ot L03.116 CELLULITIS OF LEFT LOWER LIMB 12/30/2019 DEDRA, MARQUIS R FIELD TAX AUDITOR Ot L97.122 NON-PRESSURE CHRONIC ULCER OF LEFT THIGH 12/30/2019 DEDRA, MARQUIS R FIELD TAX AUDITOR Ot Z89.512 ACQUIRED ABSENCE OF LEFT LEG BELOW KNEE 12/30/2019 DEDRA, MARQUIS R FIELD TAX AUDITOR Ot B36.9 SUPERFICIAL MYCOSIS, UNSPECIFIED 12/30/2019 DEDRA, MARQUIS R FIELD TAX AUDITOR Ot L03.116 CELLULITIS OF LEFT LOWER LIMB 12/30/2019 DEDRA, MARQUIS R FIELD TAX AUDITOR Ot L97.121 NON-PRS CHRONIC ULCER OF LEFT THIGH LIMI 12/30/2019 DEDRA, MARQUIS R FIELD TAX AUDITOR Ot L97.122 NON-PRESSURE CHRONIC ULCER OF LEFT THIGH 12/30/2019 DEDRA, MARQUIS R FIELD TAX AUDITOR Ot Z89.512 ACQUIRED ABSENCE OF LEFT LEG BELOW KNEE 12/30/2019 DEDRA, MARQUIS R FIELD TAX AUDITOR Ot B36.9 SUPERFICIAL MYCOSIS, UNSPECIFIED 12/30/2019 DEDRA, MARQUIS R FIELD TAX AUDITOR Ot L03.116 CELLULITIS OF LEFT LOWER LIMB 12/30/2019 DEDRA, MARQUIS R FIELD TAX AUDITOR Ot L97.121 NON-PRS CHRONIC ULCER OF LEFT THIGH LIMI 12/30/2019 DEDRA, MARQUIS R FIELD TAX AUDITOR Ot L97.122 NON-PRESSURE CHRONIC ULCER OF LEFT THIGH 12/30/2019 DEDRA, MARQUIS R FIELD TAX AUDITOR Ot Z89.512 ACQUIRED ABSENCE OF LEFT LEG BELOW KNEE 12/30/2019 DEDRA, MARQUIS R FIELD TAX AUDITOR Ot B36.9 SUPERFICIAL MYCOSIS, UNSPECIFIED 12/30/2019 DEDRA, MARQUIS R FIELD TAX AUDITOR Ot L03.116 CELLULITIS OF LEFT LOWER LIMB 12/30/2019 DEDRA, MARQUIS R FIELD TAX AUDITOR Ot L97.121 NON-PRS CHRONIC ULCER OF LEFT THIGH LIMI 12/30/2019 DEDRA, MARQUIS R FIELD TAX AUDITOR Ot L97.122 NON-PRESSURE CHRONIC ULCER OF LEFT THIGH 12/30/2019 DEDRA, MARQUIS R FIELD TAX AUDITOR Ot Z89.512 ACQUIRED ABSENCE OF LEFT LEG BELOW KNEE 12/30/2019 DEDRA, MARQUIS R FIELD TAX AUDITOR Ot B36.9 SUPERFICIAL MYCOSIS, UNSPECIFIED 12/30/2019 DEDRA, MARQUIS R FIELD TAX AUDITOR Ot L03.116 CELLULITIS OF LEFT LOWER LIMB 12/30/2019 DEDRA MARQUIS R FIELD TAX AUDITOR Ot L97.121 NON-PRS CHRONIC ULCER OF LEFT THIGH LIMI 12/30/2019 DEDRA MARQUIS R FIELD TAX AUDITOR Ot Z89.512 ACQUIRED ABSENCE OF LEFT LEG BELOW KNEE 12/30/2019 DEDRA MARQUIS R FIELD TAX AUDITOR Ot B36.9 SUPERFICIAL MYCOSIS, UNSPECIFIED 12/30/2019 DEDRA, MARQUIS R FIELD TAX AUDITOR Ot L03.116 CELLULITIS OF LEFT LOWER LIMB 12/30/2019 DEDRA, MARQUIS R FIELD TAX AUDITOR Ot L97.121 NON-PRS CHRONIC ULCER OF LEFT THIGH LIMI 12/30/2019 DEDRA MARQUIS R FIELD TAX AUDITOR Ot Z89.512 ACQUIRED ABSENCE OF LEFT LEG BELOW KNEE 12/30/2019 DEDRA MARQUIS R FIELD TAX AUDITOR Ot B36.9 SUPERFICIAL MYCOSIS, UNSPECIFIED 12/30/2019 DEDRA, MARQUIS R FIELD TAX AUDITOR Ot L03.116 CELLULITIS OF LEFT LOWER LIMB 12/30/2019 DEDRA, MARQUIS R FIELD TAX AUDITOR Ot L97.122 NON-PRESSURE CHRONIC ULCER OF LEFT THIGH 12/30/2019 DEDRA MARQUIS R FIELD TAX AUDITOR Ot Z89.512 ACQUIRED ABSENCE OF LEFT LEG BELOW KNEE 12/30/2019 DEDRA MARQUIS R FIELD TAX AUDITOR Ot Z51.81 ENCOUNTER FOR THERAPEUTIC DRUG LEVEL MON 12/30/2019 DEDRA MARQUIS R FIELD TAX AUDITOR Ot Z79.899 OTHER WINE MASTER (CURRENT) DRUG THERAPY 12/30/2019 KIANNA PERES MD, Ot E11.622 TYPE 2 DIABETES MELLITUS WITH OTHER SKIN 12/30/2019 KIANNA PERES MD, Ot 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 12/30/2019 [...] ABSENCE OF RIGHT LEG BELOW KNEE 12/30/2019 KAINNA PERES MD Ot Z89.512 ACQUIRED ABSENCE [...] OF URETER, INITIAL ENCOUNTER 12/30/2019 HONG DUKES MD Ot Z96.0 PRESENCE OF UROGENITAL IMPLANTS 12/30/2019 GRIFFIN DO, GALO D Ot Z01.818 ENCOUNTER FOR OTHER PREPROCEDURAL EXAMIN 12/30/2019 HONG DUKES MD Ot S37.13XA LACERATION OF URETER, INITIAL ENCOUNTER 12/30/2019 HONG DUKES MD Ot Z93.6 OTHER ARTIFICIAL OPENINGS OF URINARY TRA 12/30/2019 SCOTT LEI MD Ot 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 9 MALIGNANT NEOPLASM OF COLON, UNSPECIFIED 12/31/2019 GRIFFIN DO, GALO D Ot N40. 0 BENIGN PROSTATIC HYPERPLASIA WITHOUT LOW 12/31/2019 GRIFFIN DO, GALO D Ot Z01.818 ENCOUNTER FOR OTHER PREPROCEDURAL EXAMIN 01/06/2020 GRIFFIN DO, GALO D Ot N40. 1 BENIGN PROSTATIC HYPERPLASIA WITH LOWER 01/06/2020 GRIFFIN DO, GALO D Ot R33. 8 OTHER RETENTION OF URINE 01/06/2020 SCOTT LEI MD Ot C18.7 MALIGNANT NEOPLASM OF SIGMOID COLON 01/06/2020 SCOTT LEI MD Ot C77.2 SECONDARY AND UNSP MALIGNANT NEOPLASM OF 01/08/2020 SCOTT LEI MD Ot C18.7 MALIGNANT NEOPLASM OF SIGMOID COLON 01/08/2020 SCOTT LEI MD Ot C77.2 SECONDARY AND UNSP MALIGNANT NEOPLASM OF Procedures Code Description Performed By Per formed On [id number] EX CISION OF LEFT LOWER LEG SKIN, EXTERNA 11/07/2017 [id number] EX CISION OF SIGMOID COLON, OPEN APPROACH 08/28/2019 [id number] IN SERTION OF OTHER DEVICE INTO URETER, O 08/28/2019 [id number] RE PAIR LEFT URETER, OPEN APPROACH 08/28/2019 [id number] RE LEASE SMALL INTESTINE, OPEN APPROACH 09/05/[id number] DILLARD OF PERITONEAL CAVITY, OPEN APPR 09/05/2019 [id number] RE SPIRATORY VENTILATION, 24- 96 CONSECUTI 09/05/2019 [id number] EX CISION OF PROSTATE, ENDO 01/02/2020 Results Test Result Range TSH - 10/30/17 [...] Bacteria identification in isolate by anaerobe culture [id number] NR Gram stain microscopy - 11/08/17 17:30 GRAM STAIN RESULT OBSERVED NRG Bacteria identification in wound by cult ure - 11/08/17 17:30 Bacteria identification in wound by culture SEE RE PORT NRG FREE TEXT EXTERNAL SEE FUNGUS CULTURE REPORT NRG QUANTITY OF GROWTH . [facility] FREE TEXT ENTRY 2 ON THIS ORGAISM. [facility] Bacterial susceptibility panel - 8 17:30 [...] - 11/08/17 17:30 QUANTITY OF GROWTH . NR Fungus culture SEE REPORT NRG Capillary blood [...] identification in isolate by anaerobe culture NG [facility] Gram stain microscopy - 11/22/17 14:38 GRAM STAIN RESULT NO BACTERIA NRG Bacteria identification in wound by cult ure - 11/22/17 14:38 Bacteria identification in wound by culture [id number] NRG FREE TEXT EXTERNAL FROM THIO BROTH ONLY NRG QUANTITY OF GROWTH Isolated NRG FREE TEXT ENTRY 2 SENSITIVITIES REPORTED AT 1240, 4-18 [facility] Bacterial susceptibility panel - 8 14:38 Gentamicin susceptibility test by minimum inhibitory c oncentration S NRG Erythromycin susceptibility test by minimum inhibitory concentration <= NRG Vancomycin susceptibility test by minimum inhibitory c oncentration 2 NRG Ampicillin susceptibility test by minimum inhibitory c oncentration <= NRG Linezolid susceptibility test by minimum inhibitory co ncentration 2 [facility] Bacterial susceptibility panel - 8 14:38 Oxacillin [...] test by minimum inhibitory co ncentration 1 [facility] Fungus culture - 11/22/17 14:38 Fungus culture NG [facility] Whole blood basic metabolic panel - [...] 98 mmol/L 98-107 Carbon dioxide 27 mmol/L - Serum or plasma anion gap [...] urea nitrogen measurement (mass/volume ) 14 mg/dL -18 Serum or plasma creatinine measurement (mass/volume) 0.95 [...] 09:39 Bacteria identification in wound by culture [id number] NR FREE TEXT EXTERNAL SENSITIVITY REPORTED [...] NRG FTX;REPORTABLE UNLESS REQUESTED NRG Fungus culture [id number] NRG IDENTIFICATION TO FOLLOW NO FURTHER STUDIES FOR THIS ISOLATE NRG CBC w/MANUAL DIFF - 05/08/19 09:59 WHITE BLOOD CELL COUNT 7.5 Thousand/uL [...] 10:30 Bacteria identification in wound by culture [id number] NRG FREE TEXT EXTERNAL SUSCEPTIBILITY REPORTED [...] 10:07 Bacteria identification in wound by culture [id number] NRG FREE TEXT EXTERNAL NO SUSCEPTIBLILTY [...] 1.0 % NRG CBC MORPHOLOGY NORMAL COMMENT(S) [facility] ANEMIA PANEL - 04/03/19 10:39 IRON, TOTAL [...] 0.0-0.1 Blood type T Indirect antibody screen [facility] - 08/18/19 14:30 ABO+Rh group AP NRG Blood group antibody screen NEGATIVE NR G Capillary blood glucose measurement by g lucometer (mass/volume) - 08/28/19 10:17 Capillary blood glucose measurement by glucometer (mas s/volume) 109 mg/dL 70-110 Blood type T Indirect antibody screen [facility] - 08/28/19 10:25 WRISTBAND NUMBER [id number] NRG ABO+Rh group AP NRG Blood group antibody screen NEGATIVE NR G Methicillin resistant Staphylococcus aur eus (MRSA) screening culture - 08/28/19 16:35 Methicillin resistant Staphylococcus aureus (MRSA) scr eening culture NEG NR Automated blood complete blood count (he mogram) [...] glucose measurement by g lucometer (mass/volume) - 01/13/20 11:03 Capillary blood glucose measurement by glucometer [...] [facility] - 09/05/19 14:22 WRISTBAND NUMBER [id number] NRG ABO+Rh group AP NRG Blood group antibody screen NEGATIVE NR G Bacteria identification in isolate by an aerobe culture - 09/05/19 15:00 Bacteria identification in isolate by anaerobe culture NOANA NRG Gram stain microscopy - 09/05/19 15:00 Gram stain microscopy No bacteria seen NRG Bacteria identification in wound by cult ure - 09/05/19 15:00 Bacteria identification in wound by culture [id number] NRG FREE TEXT EXTERNAL SUSCEPTIBILITY REPORTED [...] EXTERNAL PRELIM RAPID ID TEST AT [facility] 09/08 NRG QUANTITY OF GROWTH . [...] 06:44 Sputum Gram stain No bacteria seen NR Bacterial sputum culture - 09/06/19 06:4 4 [...] to culture NO NRG Coronavirus SARS-CoV-2 SO 2018 - 0 13:07 Coronavirus Ab [Units/volume] in Serum Negative Negative Methicillin resistant Staphylococcus aur eus (MRSA) screening culture - 12/29/19 13:20 Methicillin resistant Staphylococcus aureus (MRSA) scr eening culture NEG NRG Blood type T Indirect antibody screen [facility] - 01/02/20 11:03 WRISTBAND NUMBER [id number] NRG ABO+Rh group AP NRG Blood group [...] Status Pt. Type Provider Facility Loc./Unit Complaint [id number] 10/16/2019 10:40:00 10/16/2019 23:59: 59 [facility] Outpatient KIANNA BARAJAS APRN [facility] [id number] 12/04/2019 09:40:00 Document Registration [id number] 10/16/2019 10:40:00 Document Registration [id number] 07/30/2019 14:40:00 Document Registration [id number] 07/14/2019 10:00:00 Document Registration [id number] 04/03/2019 10:20:00 Document Registration [id number] 03/28/2019 09:00:00 Document Registration [id number] 12/25/2018 10:20:00 Document Registration [id number] 10/30/2017 10:40:00 Document Registration [id number] 01/08/2020 11:04:00 23:59:59 CLS Outpatient SCOTT LEI MD, V [facility] ONC [id number] 01/03/2020 13:45:00 12:50:00 DIS Inpatient GALO GRIFFIN DO [facility] 4TH URINE RETENTION [id number] 12/12/2019 14:39:00 00:01:00 DIS Outpatient SCOTT LEI MD, V [facility] ONC [id number] 12/29/2019 12:33:00 16:18:00 DIS Outpatient GALO GRIFFIN DO [facility] PREOP COLON CANCER [id number] 12/18/2019 22:43:00 00:30:00 DIS Emergency MARIA ELENA DOOLEY, BRET J [facility] ER UNABLE TO URINATE,BUDDY TER PROBLEMS [id number] 11/21/2019 00:59:00 02:09:00 DIS Emergency MARIA ELENA DOOLEY, BRET J [facility] ER CATHETER TAKEN OUT IN A .M.,CAN'T URINATE [id number] 11/17/2019 11:45:00 23:59:59 CLS Preadmit SCOTT LEI MD [facility] RAD COLON CA [id number] 11/17/2019 10:54:00 23:59:59 CLS Outpatient SCOTT LEI MD, V [facility] 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 [id number] 11/13/2019 08:00:00 23:59:59 CLS Preadmit GALO GRIFFIN DO [facility] SDC COLON CANCER [id number] 11/12/2019 15:19:00 18:06:00 DIS Emergency MARIA ELENA DOOLEY, BRET Eric [facility] ER RENAL FAILURE [id number] 11/11/2019 05:41:00 12:56:00 DIS Outpatient GALO GRIFFIN DO [facility] PREOP COLON CANCER [id number] 11/07/2019 09:57:00 23:59:59 CLS Outpatient HONG DUKES MD [facility] RAD LT URETERAL LACERATION [id number] 10/28/2019 13:40:00 23:59:59 CLS Preadmit GALO GRIFFIN DO [facility] ENDO HX OF COLON CA [id number] 10/21/2019 05:38:00 23:59:59 CLS Outpatient GALO GRIFFIN DO [facility] PREOP COLONOSCOPY [id number] 10/17/2019 10:52:00 23:59:59 CLS Outpatient HONG DUKES MD [facility] RAD LT URETERAL LACERATION [id number] 08/28/2019 09:45:00 17:10:00 DIS Inpatient GALO GRIFFIN DO [facility] 4TH COLON CANCER [id number] 08/18/2019 14:04:00 14:38:00 DIS Outpatient GALO GRIFFIN DO [facility] PREOP COLON CANCER [id number] 08/11/2019 14:44:00 23:59:59 CLS Outpatient GALO GRIFFIN DO [facility] RAD COLON CA [id number] 02/12/2019 09:35:00 23:59:59 CLS Outpatient KIANNA PERES MD [facility] WOUNDCARE [id number] 02/05/2019 12:43:00 23:59:59 CLS Outpatient KIANNA PERES MD [facility]OUND[facility] [id number] 01/29/2019 09:38:00 23:59:59 CLS Outpatient KIANNA PERES MD [facility]OUND[facility] [id number] 01/22/2019 09:26:00 23:59:59 CLS Outpatient KIANNA PERES MD [facility] [id number] 01/15/2019 09:44:00 23:59:59 CLS Outpatient KIANNA PERES MD [facility] [id number] 2019 08:40:00 23:59:59 CLS Outpatient KIANNA PERES MD [facility] [id number] 03/05/2018 00:09:00 23:59:59 CLS Preadmit MARQUIS COLMENARES R FIELD TAX AUDITOR [facility] LAB [id number] 12/25/2017 10:53:00 00:01:00 DIS Outpatient MARQUIS COLMENARES R FIELD TAX AUDITOR [facility] LAB [id number] 01/22/2018 08:44:00 23:59:59 CLS Outpatient DEDRA MARQUIS R FIELD TAX AUDITOR [facility]OUND[facility] [id number] 01/15/2018 08:58:00 23:59:59 CLS Outpatient DEDRA MARQUIS R FIELD TAX AUDITOR [facility] [id number] 01/08/2018 08:41:00 018 23:59:59 CLS Outpatient DEDRA MARQUIS R FIELD TAX AUDITOR [facility] [id number] 01/01/2018 08:38:00 018 23:59:59 CLS Outpatient DEDRA MARQUIS R FIELD TAX AUDITOR [facility] [id number] 12/25/2017 10:09:00 23:59:59 CLS Outpatient DEDRA MARQUIS R FIELD TAX AUDITOR [facility] [id number] 12/17/2017 12:40:00 018 23:59:59 CLS Outpatient MARQUIS COLMENARES FIELD TAX AUDITOR [facility] [id number] 12/11/2017 09:27:00 018 23:59:59 CLS Outpatient DEDRA MARQUIS R FIELD TAX AUDITOR [facility] [id number] 12/04/2017 09:53:00 018 23:59:59 CLS Outpatient MARQUIS COLMENARES R FIELD TAX AUDITOR [facility] [id number] 11/27/2017 10:01:00 018 23:59:59 CLS Outpatient MARQUIS COLMENARES R FIELD TAX AUDITOR [facility] [id number] 11/22/2017 14:01:00 018 23:59:59 CLS Outpatient MARQUIS COLMENARES R FIELD TAX AUDITOR [facility] [id number] 11/13/2017 10:49:00 018 23:59:59 CLS Outpatient MARQUIS COLMENARES R FIELD TAX AUDITOR [facility] [id number] 11/06/2017 13:00:00 018 16:21:00 DIS Inpatient BERNARD PAYTON DO [facility] 4TH BILAT LE CELLUL ITIS [id number] 11/06/2017 08:54:00 018 23:59:59 CLS Outpatient MARQUIS COLMENARES FIELD TAX AUDITOR [facility]
[2020-01-11 22:54] LABS: BILIRUBIN,URINE NEGATIVE (NEGATIVE); CLARITY,URINE CLOUDY; COLOR,URINE YELLOW; GLUCOSE, URINE (UA) NEGATIVE (NEGATIVE); KETONES,URINE NEGATIVE (NEGATIVE); LEUKOCYTE ESTERASE ,URINE TRACE (NEGATIVE); NITRITE,URINE NEGATIVE (NEGATIVE); PH,URINE 6.5 (5-9); PROTEIN,URINE 1+ (NEGATIVE)
[2020-01-11 22:57] LABS: BASOPHILS % (AUTO) 0 % (0-10); EOSINOPHILS # (AUTO) 0.2 10^3/uL (0.0-0.3); EOSINOPHILS % (AUTO) 2 % (0-10); HEMATOCRIT 30 % (40-54); HEMOGLOBIN 9.5 G/DL (13.3-17.7); LYMPHOCYTES % (AUTO) 10 % (12-44); MEAN CORPUSCULAR HEMOGLOBIN 28 PG (25-34); MEAN CORPUSCULAR HGB CONC 32 G/DL (32-36); MEAN CORPUSCULAR VOLUME 87 FL (80-99); MEAN PLATELET VOLUME 8.3 FL (7.4-10.4); MONOCYTES # (AUTO) 1.4 X 10^3 (0.0-1.0); MONOCYTES % (AUTO) 14 % (0-12); NEUTROPHILS # (AUTO) 7.3 X 10^3 (1.8-7.8); NEUTROPHILS % (AUTO) 74 % (42-75); PLATELET COUNT 358 10^3/uL (130-400); RED CELL DISTRIBUTION WIDTH 23.9 % (10.0-14.5); WHITE BLOOD COUNT 9.9 10^3/uL (4.3-11.0)
[2020-01-11 23:10] LABS: ALBUMIN 3.9 GM/DL (3.2-4.5)
[2020-01-11 23:11] LABS: CHLORIDE 99 MMOL/L (98-107); POTASSIUM 4.8 MMOL/L (3.6-5.0); SODIUM 132 MMOL/L (135-145)
[2020-01-11 23:11] LABS: RBC,URINE TNTC /HPF
[2020-01-11 23:12] LABS: BACTERIA,URINE TRACE /HPF; CALCIUM OXALATE CRYSTALS,UR RARE /LPF; SQUAMOUS EPITHELIAL CELL,UR RARE /HPF
[2020-01-11 23:12] LABS: CALCIUM 9.1 MG/DL (8.5-10.1)
[2020-01-11 23:13] LABS: GLUCOSE 125 MG/DL (70-105); TOTAL PROTEIN 7.4 GM/DL (6.4-8.2)
[2020-01-11 23:14] LABS: CARBON DIOXIDE 23 MMOL/L (21-32)
[2020-01-11 23:15] LABS: BILIRUBIN,TOTAL 0.3 MG/DL (0.1-1.0)
[2020-01-11 23:16] LABS: ALKALINE PHOSPHATASE 93 U/L (40-136)
[2020-01-11 23:17] LABS: CREATININE SERUM 1.08 MG/DL (0.60-1.30); GFR ESTIMATED > 60
[2020-01-11 23:18] LABS: BUN/CREATININE RATIO 17
[2020-01-11 23:20] LABS: ALANINE AMINOTRANSFERASE 15 U/L (0-55)
--- NOTE | 2020-01-12 00:58 | ED GU-Female ---
General Chief Complaint: - Urinary Stated Complaint: UNABLE TO URINATE Source: patient Exam Limitations: no limitations History of Present Illness Date Seen by Provider: January 12, 2020 Time Seen by Provider: 00:37 Initial Comments The patient presents to ER by private conveyance with chief complaint of inability to urinate. He had Dr. Contreras do a procedure on his prostate on either or Sunday and Sunday night when he presented here he still is unable to urinate. It passed a few clots earlier Sunday morning but none towards evening. Nursing staff reports 900 cc on bedside ultrasound. Allergies and Home Medications Allergies Coded Allergies: No Known Drug Allergies (Unverified , 11/11/19) Home Medications Insulin NPH Human Isophane 100 Unit/1 Ml Vial, 33 UNITS SQ DAILY, (Reported) Insulin NPH Human Isophane 100 Unit/1 Ml Vial, 20 UNITS SQ 1930, (Reported) Insulin Regular, Human 100 Unit/1 Ml Vial, 6 UNITS SQ DAILY, (Reported) Insulin Regular, Human 100 Unit/1 Ml Vial, 5 UNITS SQ 1930, (Reported) Lisinopril 20 Mg Tablet, 20 MG PO DAILY, (Reported) Simvastatin 20 Mg Tablet, 20 MG PO HS, (Reported) Patient Home Medication List Home Medication List Reviewed: Yes Review of Systems Review of Systems Constitutional: No chills, No fever EENTM: No ear discharge, No hearing loss Respiratory: No cough, No short of breath Cardiovascular: No chest pain, No edema Gastrointestinal: No abdominal pain Genitourinary: see HPI; denies burning, denies discharge, denies dysuria Musculoskeletal: No back pain, No joint pain All Other Systemes Reviewed Negative Unless Noted: Yes Past Tgcefjc-Kyzepx-Dhpsyx Hx Patient Social History Alcohol Use: Denies Use Recreational Drug Use: No Smoking Status: Never a Smoker 2nd Hand Smoke Exposure: No Recent Foreign Travel: No Contact w/Someone Who Travel: No Recent Hopitalizations: Yes (AUG 2019) Immunizations Up To Date Tetanus Booster (TDap): Unknown Date of Pneumonia Vaccine: Jun 08, 2013 Date of Influenza Vaccine: Jun 13, 2019 Seasonal Allergies Seasonal Allergies: No Past Medical History Surgeries: Yes (BILAT BKA, SEVERAL I&D'S, COLECTOMY WTIH RETURN TO SURGERY) Orthopedic Respiratory: No Cardiac: Yes High Cholesterol, Hypertension Neurological: Yes TIA Sexually Transmitted Disease: No HIV/AIDS: No Genitourinary: Yes Benign Prostatic Hyperpl Gastrointestinal: Yes (COLON CANCER) 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 No Pertinent Family Hx Physical Exam Vital Signs Capillary Refill : Height, Weight, BMI Height: 6'2.00" Weight: 201lbs. 5.0oz. 91.005972kv; 25.06 BMI Method:Stated General Appearance: WD/WN, no apparent distress HEENT: normal ENT inspection, pharynx normal Neck: full range of motion, normal inspection Cardiovascular: normal peripheral pulses, regular rate, rhythm Respiratory: no respiratory distress, no accessory muscle use Gastrointestinal: normal bowel sounds, non tender, soft Neurologic/Psychiatric: alert, normal mood/affect, oriented x 3 Procedures/Interventions Date of ETT Placement: Sep 05, 2019 Progress/Results/Core Measures Suspected Sepsis SIRS Temperature: Pulse: Respiratory Rate: Laboratory Tests 01/11/20 22:37: White Blood Count 9.9 Blood Pressure / Mean: Laboratory Tests 01/11/20 22:37: Creatinine 1.08, Platelet Count 358, Total Bilirubin 0.3 Results/Orders Lab Results Laboratory Tests Test 01/11/20 22:37 01/11/20 22:47 Range/Units White Blood Count 9.9 4.3-11.0 10^3/uL Red Blood Count 3.42 L 4.35-5.85 10^6/uL Hemoglobin 9.5 L 13.3-17.7 G/DL Hematocrit 30 L 40-54 % Mean Corpuscular Volume 87 80-99 FL Mean Corpuscular Hemoglobin 28 25-34 PG Mean Corpuscular Hemoglobin Concent 32 32-36 G/DL Red Cell Distribution Width 23.9 H 10.0-14.5 % Platelet Count 358 130-400 10^3/uL Mean Platelet Volume 8.3 7.4-10.4 FL Neutrophils (%) (Auto) 74 42-75 % Lymphocytes (%) (Auto) 10 L 12-44 % Monocytes (%) (Auto) 14 H 0-12 % Eosinophils (%) (Auto) 2 0-10 % Basophils (%) (Auto) 0 0-10 % Neutrophils # (Auto) 7.3 1.8-7.8 X 10^3 Lymphocytes # (Auto) 1.0 1.0-4.0 X 10^3 Monocytes # (Auto) 1.4 H 0.0-1.0 X 10^3 Eosinophils # (Auto) 0.2 0.0-0.3 10^3/uL Basophils # (Auto) 0.0 0.0-0.1 10^3/uL Sodium Level 132 L 135-145 MMOL/L Potassium Level 4.8 3.6-5.0 MMOL/L Chloride Level 99 98-107 MMOL/L Carbon Dioxide Level 23 21-32 MMOL/L Anion Gap 10 5-14 MMOL/L Blood Urea Nitrogen 18 7-18 MG/DL Creatinine 1.08 0.60-1.30 MG/DL Estimat Glomerular Filtration Rate > 60 BUN/Creatinine Ratio 17 Glucose Level 125 H 70-105 MG/DL Calcium Level 9.1 8.5-10.1 MG/DL Corrected Calcium 9.2 8.5-10.1 MG/DL Total Bilirubin 0.3 0.1-1.0 MG/DL Aspartate Amino Transf (AST/SGOT) 19 5-34 U/L Alanine Aminotransferase (ALT/SGPT) 15 0-55 U/L Alkaline Phosphatase 93 40-136 U/L Total Protein 7.4 6.4-8.2 GM/DL Albumin 3.9 3.2-4.5 GM/DL Urine Color YELLOW Urine Clarity CLOUDY Urine pH 6.5 5-9 Urine Specific [place] 1.015 L 1.016-1.022 Urine Protein 1+ H NEGATIVE Urine Glucose (UA) NEGATIVE NEGATIVE Urine Ketones NEGATIVE NEGATIVE Urine Nitrite NEGATIVE NEGATIVE Urine Bilirubin NEGATIVE NEGATIVE Urine Urobilinogen 0.2 < = 1.0 MG/DL Urine Leukocyte Esterase TRACE H NEGATIVE Urine RBC (Auto) 3+ H NEGATIVE Urine RBC TNTC H /HPF Urine WBC 5-10 H /HPF Urine Squamous Epithelial Cells RARE /HPF Urine Crystals PRESENT H /LPF Urine Calcium Oxalate Crystals RARE H /LPF Urine Bacteria TRACE /HPF Urine Casts NONE /LPF Urine Mucus NEGATIVE /LPF Urine Culture Indicated YES My Orders Orders - BRET ARREDONDO Cbc With Automated Diff (01/11/20 22:13) Comprehensive Metabolic Panel (01/11/20 22:13) Ua Culture If Indicated (01/11/20 22:13) Bladder Scan (01/11/20 22:13) Urine Culture (01/11/20 22:47) Vital Signs/I&O Capillary Refill : Progress Note : Time: 01:00 Progress Note Rosales catheter placed yesterday about 900 cc. We'll have him follow-up with urology outpatient. Departure Impression Primary Impression: Urinary tract infection Qualified Codes: N30.01 - Acute cystitis with hematuria Additional Impression: Urinary retention Disposition: HOME, SELF-CARE Condition: Stable Departure-Patient Inst. Decision time for Depature: 01:01 Referrals: DIONICIO VILLARREAL MD (PCP) Primary Care Physician KYLE RECINOS APRN (Family) Primary Care Physician HONG DUKES MD Patient Instructions: Urinary Tract Infection, Adult (DC), Rosales Catheter, Male Add. Discharge Instructions: Keflex one capsule twice a day for the next 7 days. Sunday please call Dr. Dukes, urology and request follow-up. All discharge instructions reviewed with patient and/or family. Voiced under standing. Scripts Cephalexin (Keflex) 500 Mg Capsule 500 MG PO BID for 7 Days, #14 CAP 0 Refills Prov: BRET ARREDONDO 01/12/20 Copy Copies To 1: HONG DUKES MD, TITUS J January 12, 2020 00:58
[2020-01-12] MEDS ORDERED: CEPH-507 PO (01:02)
[2020-01-12 01:11] VITALS: BP 110/44
[2020-01-12] MEDS ORDERED: cefTRIAXone FOR IV USE 1,000 MG in WATER (STERILE) FOR INJECTION 10 ML IV ONE (01:15)
== END 2020-01-12 01:38 | disposition home or self-care (01) ==
LOC: EDUNIT# 21:46 → ER 21:47
DX: N39.0 Urinary tract infection, site not specified (principal); I10 Essential (primary) hypertension; E78.00 Pure hypercholesterolemia, unspecified; E11.9 Type 2 diabetes mellitus without complications; Z79.4 Long term (current) use of insulin; Z85.038 Personal history of other malignant neoplasm of large intestine; Z89.511 Acquired absence of right leg below knee; Z89.512 Acquired absence of left leg below knee; Z86.73 Personal history of transient ischemic attack (TIA), and cerebral infarction without residual deficits
CPT/HCPCS: 36415; 51702; 80053; 81000; 85025; 87088

== ENCOUNTER 2020-04-16 15:07 | Outpatient (RCR) | payer MEDICARE, OTHER ==
[2020-01-20 13:53] LABS: BASOPHILS % (AUTO) 0 % (0-10); EOSINOPHILS # (AUTO) 0.1 10^3/uL (0.0-0.3); EOSINOPHILS % (AUTO) 1 % (0-10); HEMATOCRIT 30 % (40-54); HEMOGLOBIN 9.8 G/DL (13.3-17.7); LYMPHOCYTES # (AUTO) 1.4 X 10^3 (1.0-4.0); LYMPHOCYTES % (AUTO) 9 % (12-44); MEAN CORPUSCULAR HGB CONC 33 G/DL (32-36); MEAN CORPUSCULAR VOLUME 87 FL (80-99); MEAN PLATELET VOLUME 7.9 FL (7.4-10.4); MONOCYTES # (AUTO) 1.7 X 10^3 (0.0-1.0); MONOCYTES % (AUTO) 11 % (0-12); NEUTROPHILS # (AUTO) 12.1 X 10^3 (1.8-7.8); NEUTROPHILS % (AUTO) 79 % (42-75); PLATELET COUNT 382 10^3/uL (130-400); RED CELL DISTRIBUTION WIDTH 24.1 % (10.0-14.5); WHITE BLOOD COUNT 15.3 10^3/uL (4.3-11.0)
[2020-01-20 13:54] LABS: MEAN CORPUSCULAR HEMOGLOBIN 28 PG (25-34)
[2020-01-20 14:10] LABS: BUN/CREATININE RATIO 11; CALCIUM 8.8 MG/DL (8.5-10.1); CARBON DIOXIDE 24 MMOL/L (21-32); CHLORIDE 102 MMOL/L (98-107); CREATININE SERUM 0.81 MG/DL (0.60-1.30); GFR ESTIMATED > 60; GLUCOSE 210 MG/DL (70-105); POTASSIUM 4.1 MMOL/L (3.6-5.0); SODIUM 135 MMOL/L (135-145)
[2020-01-29 09:37] LABS: BASOPHILS % (AUTO) 0 % (0-10); EOSINOPHILS # (AUTO) 0.2 10^3/uL (0.0-0.3); EOSINOPHILS % (AUTO) 2 % (0-10); HEMATOCRIT 30 % (40-54); HEMOGLOBIN 9.7 G/DL (13.3-17.7); LYMPHOCYTES # (AUTO) 1.1 X 10^3 (1.0-4.0); LYMPHOCYTES % (AUTO) 14 % (12-44); MEAN CORPUSCULAR HEMOGLOBIN 29 PG (25-34); MEAN CORPUSCULAR HGB CONC 33 G/DL (32-36); MEAN CORPUSCULAR VOLUME 90 FL (80-99); MEAN PLATELET VOLUME 8.1 FL (7.4-10.4); MONOCYTES # (AUTO) 1.1 X 10^3 (0.0-1.0); MONOCYTES % (AUTO) 14 % (0-12); NEUTROPHILS # (AUTO) 5.5 X 10^3 (1.8-7.8); NEUTROPHILS % (AUTO) 70 % (42-75); PLATELET COUNT 306 10^3/uL (130-400); RED CELL DISTRIBUTION WIDTH 24.2 % (10.0-14.5); WHITE BLOOD COUNT 7.8 10^3/uL (4.3-11.0)
[2020-01-29 10:04] LABS: ALANINE AMINOTRANSFERASE 13 U/L (0-55); ALBUMIN 3.5 GM/DL (3.2-4.5); ALKALINE PHOSPHATASE 74 U/L (40-136); BILIRUBIN,TOTAL 0.3 MG/DL (0.1-1.0); BUN/CREATININE RATIO 12; CALCIUM 9.1 MG/DL (8.5-10.1); CARBON DIOXIDE 25 MMOL/L (21-32); CHLORIDE 101 MMOL/L (98-107); CREATININE SERUM 0.81 MG/DL (0.60-1.30); GFR ESTIMATED > 60; GLUCOSE 184 MG/DL (70-105); POTASSIUM 4.5 MMOL/L (3.6-5.0); SODIUM 136 MMOL/L (135-145); TOTAL PROTEIN 6.7 GM/DL (6.4-8.2)
[2020-02-05 13:02] LABS: BASOPHILS % (AUTO) 0 % (0-10); EOSINOPHILS # (AUTO) 0.1 10^3/uL (0.0-0.3); EOSINOPHILS % (AUTO) 2 % (0-10); HEMATOCRIT 30 % (40-54); HEMOGLOBIN 9.4 G/DL (13.3-17.7); LYMPHOCYTES # (AUTO) 1.1 X 10^3 (1.0-4.0); LYMPHOCYTES % (AUTO) 18 % (12-44); MEAN CORPUSCULAR HEMOGLOBIN 28 PG (25-34); MEAN CORPUSCULAR HGB CONC 31 G/DL (32-36); MEAN CORPUSCULAR VOLUME 90 FL (80-99); MEAN PLATELET VOLUME 8.4 FL (7.4-10.4); MONOCYTES # (AUTO) 0.9 X 10^3 (0.0-1.0); MONOCYTES % (AUTO) 15 % (0-12); NEUTROPHILS % (AUTO) 65 % (42-75); PLATELET COUNT 240 10^3/uL (130-400); RED CELL DISTRIBUTION WIDTH 23.1 % (10.0-14.5); WHITE BLOOD COUNT 6.1 10^3/uL (4.3-11.0)
[2020-02-05 13:30] LABS: ALANINE AMINOTRANSFERASE 20 U/L (0-55); ALBUMIN 3.5 GM/DL (3.2-4.5); ALKALINE PHOSPHATASE 82 U/L (40-136); BILIRUBIN,TOTAL 0.2 MG/DL (0.1-1.0); BUN/CREATININE RATIO 15; CALCIUM 9.3 MG/DL (8.5-10.1); CARBON DIOXIDE 32 MMOL/L (21-32); CHLORIDE 101 MMOL/L (98-107); CREATININE SERUM 0.85 MG/DL (0.60-1.30); GFR ESTIMATED > 60; GLUCOSE 269 MG/DL (70-105); POTASSIUM 4.3 MMOL/L (3.6-5.0); SODIUM 137 MMOL/L (135-145); TOTAL PROTEIN 6.6 GM/DL (6.4-8.2)
[2020-02-19 13:09] LABS: BASOPHILS % (AUTO) 0 % (0-10); EOSINOPHILS # (AUTO) 0.2 10^3/uL (0.0-0.3); EOSINOPHILS % (AUTO) 2 % (0-10); HEMATOCRIT 31 % (40-54); HEMOGLOBIN 9.6 G/DL (13.3-17.7); LYMPHOCYTES # (AUTO) 1.3 X 10^3 (1.0-4.0); LYMPHOCYTES % (AUTO) 16 % (12-44); MEAN CORPUSCULAR HEMOGLOBIN 28 PG (25-34); MEAN CORPUSCULAR HGB CONC 31 G/DL (32-36); MEAN CORPUSCULAR VOLUME 90 FL (80-99); MEAN PLATELET VOLUME 8.3 FL (7.4-10.4); MONOCYTES # (AUTO) 0.9 X 10^3 (0.0-1.0); MONOCYTES % (AUTO) 10 % (0-12); NEUTROPHILS % (AUTO) 72 % (42-75); PLATELET COUNT 319 10^3/uL (130-400); WHITE BLOOD COUNT 8.4 10^3/uL (4.3-11.0)
[2020-02-19 13:47] LABS: ALANINE AMINOTRANSFERASE 12 U/L (0-55); ALBUMIN 3.9 GM/DL (3.2-4.5); ALKALINE PHOSPHATASE 82 U/L (40-136); BILIRUBIN,TOTAL 0.2 MG/DL (0.1-1.0); BUN/CREATININE RATIO 19; CALCIUM 9.6 MG/DL (8.5-10.1); CARBON DIOXIDE 26 MMOL/L (21-32); CHLORIDE 103 MMOL/L (98-107); GFR ESTIMATED > 60; GLUCOSE 190 MG/DL (70-105); POTASSIUM 4.1 MMOL/L (3.6-5.0); SODIUM 139 MMOL/L (135-145)
[2020-02-26 15:32] LABS: BASOPHILS % (AUTO) 0 % (0-10); EOSINOPHILS # (AUTO) 0.2 10^3/uL (0.0-0.3); EOSINOPHILS % (AUTO) 3 % (0-10); HEMATOCRIT 31 % (40-54); HEMOGLOBIN 9.6 G/DL (13.3-17.7); LYMPHOCYTES # (AUTO) 1.4 X 10^3 (1.0-4.0); LYMPHOCYTES % (AUTO) 17 % (12-44); MEAN CORPUSCULAR HEMOGLOBIN 28 PG (25-34); MEAN CORPUSCULAR HGB CONC 31 G/DL (32-36); MEAN CORPUSCULAR VOLUME 90 FL (80-99); MEAN PLATELET VOLUME 8.4 FL (7.4-10.4); MONOCYTES # (AUTO) 1.2 X 10^3 (0.0-1.0); MONOCYTES % (AUTO) 15 % (0-12); NEUTROPHILS # (AUTO) 5.2 X 10^3 (1.8-7.8); NEUTROPHILS % (AUTO) 65 % (42-75); PLATELET COUNT 322 10^3/uL (130-400); RED CELL DISTRIBUTION WIDTH 19.1 % (10.0-14.5)
[2020-02-26 15:50] LABS: BUN/CREATININE RATIO 13; CALCIUM 9.4 MG/DL (8.5-10.1); CARBON DIOXIDE 29 MMOL/L (21-32); CHLORIDE 100 MMOL/L (98-107); CREATININE SERUM 0.91 MG/DL (0.60-1.30); GFR ESTIMATED > 60; GLUCOSE 274 MG/DL (70-105); POTASSIUM 4.8 MMOL/L (3.6-5.0); SODIUM 135 MMOL/L (135-145)
[2020-03-04 11:32] LABS: BASOPHILS % (AUTO) 0 % (0-10); EOSINOPHILS # (AUTO) 0.1 10^3/uL (0.0-0.3); EOSINOPHILS % (AUTO) 2 % (0-10); HEMATOCRIT 33 % (40-54); LYMPHOCYTES # (AUTO) 1.2 X 10^3 (1.0-4.0); LYMPHOCYTES % (AUTO) 16 % (12-44); MEAN CORPUSCULAR HEMOGLOBIN 28 PG (25-34); MEAN CORPUSCULAR HGB CONC 31 G/DL (32-36); MEAN CORPUSCULAR VOLUME 90 FL (80-99); MEAN PLATELET VOLUME 8.5 FL (7.4-10.4); MONOCYTES % (AUTO) 14 % (0-12); NEUTROPHILS # (AUTO) 5.3 X 10^3 (1.8-7.8); NEUTROPHILS % (AUTO) 69 % (42-75); PLATELET COUNT 266 10^3/uL (130-400); RED CELL DISTRIBUTION WIDTH 18.7 % (10.0-14.5); WHITE BLOOD COUNT 7.7 10^3/uL (4.3-11.0)
[2020-03-04 11:49] LABS: BUN/CREATININE RATIO 18; CALCIUM 9.5 MG/DL (8.5-10.1); CARBON DIOXIDE 27 MMOL/L (21-32); CHLORIDE 105 MMOL/L (98-107); CREATININE SERUM 0.87 MG/DL (0.60-1.30); GFR ESTIMATED > 60; GLUCOSE 155 MG/DL (70-105); POTASSIUM 4.4 MMOL/L (3.6-5.0); SODIUM 139 MMOL/L (135-145)
[2020-03-11 12:59] LABS: BASOPHILS % (AUTO) 0 % (0-10); EOSINOPHILS # (AUTO) 0.2 10^3/uL (0.0-0.3); EOSINOPHILS % (AUTO) 3 % (0-10); HEMATOCRIT 32 % (40-54); HEMOGLOBIN 9.7 G/DL (13.3-17.7); LYMPHOCYTES # (AUTO) 1.2 X 10^3 (1.0-4.0); LYMPHOCYTES % (AUTO) 21 % (12-44); MEAN CORPUSCULAR HEMOGLOBIN 28 PG (25-34); MEAN CORPUSCULAR HGB CONC 31 G/DL (32-36); MEAN CORPUSCULAR VOLUME 91 FL (80-99); MEAN PLATELET VOLUME 8.4 FL (7.4-10.4); MONOCYTES # (AUTO) 0.8 X 10^3 (0.0-1.0); MONOCYTES % (AUTO) 14 % (0-12); NEUTROPHILS # (AUTO) 3.6 X 10^3 (1.8-7.8); NEUTROPHILS % (AUTO) 62 % (42-75); PLATELET COUNT 266 10^3/uL (130-400); RED CELL DISTRIBUTION WIDTH 18.9 % (10.0-14.5); WHITE BLOOD COUNT 5.8 10^3/uL (4.3-11.0)
[2020-03-11 13:23] LABS: ALANINE AMINOTRANSFERASE 18 U/L (0-55); ALBUMIN 3.8 GM/DL (3.2-4.5); ALKALINE PHOSPHATASE 77 U/L (40-136); BILIRUBIN,TOTAL 0.2 MG/DL (0.1-1.0); BUN/CREATININE RATIO 17; CALCIUM 9.4 MG/DL (8.5-10.1); CARBON DIOXIDE 27 MMOL/L (21-32); CHLORIDE 104 MMOL/L (98-107); CREATININE SERUM 0.82 MG/DL (0.60-1.30); GFR ESTIMATED > 60; GLUCOSE 185 MG/DL (70-105); POTASSIUM 4.3 MMOL/L (3.6-5.0); SODIUM 139 MMOL/L (135-145); TOTAL PROTEIN 6.8 GM/DL (6.4-8.2)
[2020-03-18 15:48] LABS: BASOPHILS % (AUTO) 0 % (0-10); EOSINOPHILS # (AUTO) 0.2 10^3/uL (0.0-0.3); EOSINOPHILS % (AUTO) 3 % (0-10); HEMATOCRIT 33 % (40-54); HEMOGLOBIN 10.4 G/DL (13.3-17.7); LYMPHOCYTES # (AUTO) 1.4 X 10^3 (1.0-4.0); LYMPHOCYTES % (AUTO) 21 % (12-44); MEAN CORPUSCULAR HEMOGLOBIN 28 PG (25-34); MEAN CORPUSCULAR HGB CONC 31 G/DL (32-36); MEAN CORPUSCULAR VOLUME 90 FL (80-99); MEAN PLATELET VOLUME 8.8 FL (7.4-10.4); MONOCYTES # (AUTO) 1.1 X 10^3 (0.0-1.0); MONOCYTES % (AUTO) 16 % (0-12); NEUTROPHILS % (AUTO) 60 % (42-75); PLATELET COUNT 230 10^3/uL (130-400); WHITE BLOOD COUNT 6.6 10^3/uL (4.3-11.0)
[2020-03-18 16:09] LABS: BUN/CREATININE RATIO 17; CALCIUM 9.3 MG/DL (8.5-10.1); CARBON DIOXIDE 28 MMOL/L (21-32); CHLORIDE 102 MMOL/L (98-107); GFR ESTIMATED > 60; GLUCOSE 163 MG/DL (70-105); POTASSIUM 4.5 MMOL/L (3.6-5.0); SODIUM 139 MMOL/L (135-145)
[2020-03-25 15:14] LABS: BASOPHILS % (AUTO) 0 % (0-10); EOSINOPHILS # (AUTO) 0.2 10^3/uL (0.0-0.3); EOSINOPHILS % (AUTO) 2 % (0-10); HEMATOCRIT 32 % (40-54); LYMPHOCYTES # (AUTO) 1.2 X 10^3 (1.0-4.0); LYMPHOCYTES % (AUTO) 12 % (12-44); MEAN CORPUSCULAR HEMOGLOBIN 29 PG (25-34); MEAN CORPUSCULAR HGB CONC 32 G/DL (32-36); MEAN CORPUSCULAR VOLUME 91 FL (80-99); MEAN PLATELET VOLUME 9.1 FL (7.4-10.4); MONOCYTES # (AUTO) 1.3 X 10^3 (0.0-1.0); MONOCYTES % (AUTO) 13 % (0-12); NEUTROPHILS # (AUTO) 7.2 X 10^3 (1.8-7.8); NEUTROPHILS % (AUTO) 73 % (42-75); PLATELET COUNT 195 10^3/uL (130-400); RED CELL DISTRIBUTION WIDTH 18.9 % (10.0-14.5); WHITE BLOOD COUNT 9.8 10^3/uL (4.3-11.0)
[2020-03-25 15:34] LABS: BUN/CREATININE RATIO 16; CALCIUM 9.3 MG/DL (8.5-10.1); CARBON DIOXIDE 26 MMOL/L (21-32); CHLORIDE 101 MMOL/L (98-107); CREATININE SERUM 1.09 MG/DL (0.60-1.30); GFR ESTIMATED > 60; GLUCOSE 256 MG/DL (70-105); POTASSIUM 4.5 MMOL/L (3.6-5.0); SODIUM 136 MMOL/L (135-145)
[2020-03-31 12:59] LABS: BASOPHILS % (AUTO) 0 % (0-10); EOSINOPHILS # (AUTO) 0.2 10^3/uL (0.0-0.3); EOSINOPHILS % (AUTO) 3 % (0-10); HEMATOCRIT 33 % (40-54); HEMOGLOBIN 10.1 G/DL (13.3-17.7); LYMPHOCYTES # (AUTO) 1.4 X 10^3 (1.0-4.0); LYMPHOCYTES % (AUTO) 25 % (12-44); MEAN CORPUSCULAR HEMOGLOBIN 29 PG (25-34); MEAN CORPUSCULAR HGB CONC 31 G/DL (32-36); MEAN CORPUSCULAR VOLUME 92 FL (80-99); MEAN PLATELET VOLUME 8.3 FL (7.4-10.4); MONOCYTES # (AUTO) 1.1 X 10^3 (0.0-1.0); MONOCYTES % (AUTO) 20 % (0-12); NEUTROPHILS # (AUTO) 2.9 X 10^3 (1.8-7.8); NEUTROPHILS % (AUTO) 52 % (42-75); PLATELET COUNT 227 10^3/uL (130-400); RED CELL DISTRIBUTION WIDTH 20.7 % (10.0-14.5); WHITE BLOOD COUNT 5.6 10^3/uL (4.3-11.0)
[2020-03-31 13:22] LABS: ALANINE AMINOTRANSFERASE 18 U/L (0-55); ALBUMIN 3.8 GM/DL (3.2-4.5); ALKALINE PHOSPHATASE 69 U/L (40-136); BILIRUBIN,TOTAL 0.3 MG/DL (0.1-1.0); BUN/CREATININE RATIO 17; CALCIUM 9.3 MG/DL (8.5-10.1); CARBON DIOXIDE 29 MMOL/L (21-32); CHLORIDE 102 MMOL/L (98-107); CREATININE SERUM 0.83 MG/DL (0.60-1.30); GFR ESTIMATED > 60; GLUCOSE 166 MG/DL (70-105); POTASSIUM 4.2 MMOL/L (3.6-5.0); SODIUM 138 MMOL/L (135-145); TOTAL PROTEIN 6.9 GM/DL (6.4-8.2)
[2020-04-09 12:03] LABS: HEMATOCRIT 34 % (40-54); HEMOGLOBIN 10.4 G/DL (13.3-17.7); MEAN CORPUSCULAR HEMOGLOBIN 28 PG (25-34)
[2020-04-09 12:04] LABS: BASOPHILS % (AUTO) 0 % (0-10); EOSINOPHILS # (AUTO) 0.1 10^3/uL (0.0-0.3); EOSINOPHILS % (AUTO) 2 % (0-10); LYMPHOCYTES # (AUTO) 1.2 X 10^3 (1.0-4.0); LYMPHOCYTES % (AUTO) 19 % (12-44); MEAN CORPUSCULAR HGB CONC 31 G/DL (32-36); MEAN CORPUSCULAR VOLUME 92 FL (80-99); MEAN PLATELET VOLUME 9.2 FL (7.4-10.4); MONOCYTES # (AUTO) 0.7 X 10^3 (0.0-1.0); MONOCYTES % (AUTO) 12 % (0-12); NEUTROPHILS % (AUTO) 67 % (42-75); PLATELET COUNT 174 10^3/uL (130-400); RED CELL DISTRIBUTION WIDTH 20.7 % (10.0-14.5)
[2020-04-09 13:09] LABS: BUN/CREATININE RATIO 28; CALCIUM 9.5 MG/DL (8.5-10.1); CARBON DIOXIDE 28 MMOL/L (21-32); CHLORIDE 102 MMOL/L (98-107); CREATININE SERUM 0.95 MG/DL (0.60-1.30); GFR ESTIMATED > 60; GLUCOSE 183 MG/DL (70-105); POTASSIUM 4.5 MMOL/L (3.6-5.0); SODIUM 136 MMOL/L (135-145)
[~2020-04-16] VITALS: Ht 188 cm; Wt 94.8 kg
[~2020-04-16 15:07] MED LIST changes: +D5W 500 ML IV (CANCER CTR) 500 ML IV SCH; +D5W IV SCH; +OXALIPLATIN IV SCH
[2020-04-16 15:25] LABS: BASOPHILS % (AUTO) 0 % (0-10); EOSINOPHILS # (AUTO) 0.1 10^3/uL (0.0-0.3); EOSINOPHILS % (AUTO) 2 % (0-10); HEMATOCRIT 32 % (40-54); HEMOGLOBIN 10.2 G/DL (13.3-17.7); LYMPHOCYTES # (AUTO) 1.2 X 10^3 (1.0-4.0); LYMPHOCYTES % (AUTO) 20 % (12-44); MEAN CORPUSCULAR HEMOGLOBIN 30 PG (25-34); MEAN CORPUSCULAR HGB CONC 32 G/DL (32-36); MEAN CORPUSCULAR VOLUME 94 FL (80-99); MEAN PLATELET VOLUME 9.2 FL (7.4-10.4); MONOCYTES # (AUTO) 0.9 X 10^3 (0.0-1.0); MONOCYTES % (AUTO) 15 % (0-12); NEUTROPHILS # (AUTO) 3.8 X 10^3 (1.8-7.8); NEUTROPHILS % (AUTO) 63 % (42-75); PLATELET COUNT 213 10^3/uL (130-400); RED CELL DISTRIBUTION WIDTH 22.7 % (10.0-14.5); WHITE BLOOD COUNT 6.1 10^3/uL (4.3-11.0)
[2020-04-16 15:35] LABS: CHLORIDE 104 MMOL/L (98-107); SODIUM 137 MMOL/L (135-145)
[2020-04-16 15:36] LABS: CALCIUM 8.9 MG/DL (8.5-10.1); GLUCOSE 244 MG/DL (70-105)
[2020-04-16 15:38] LABS: CARBON DIOXIDE 24 MMOL/L (21-32)
[2020-04-16 15:40] LABS: CREATININE SERUM 0.96 MG/DL (0.60-1.30); GFR ESTIMATED > 60
[2020-04-16 15:41] LABS: BUN/CREATININE RATIO 32
== END 2020-04-19 | disposition home or self-care (01) ==
LOC: ONC 15:07
PROVIDERS: ATTEND Internal Medicine Hematology & Oncology
DX: Z51.11 Encounter for antineoplastic chemotherapy (principal); C18.7 Malignant neoplasm of sigmoid colon; C77.2 Secondary and unspecified malignant neoplasm of intra-abdominal lymph nodes; I10 Essential (primary) hypertension; E11.9 Type 2 diabetes mellitus without complications; E78.5 Hyperlipidemia, unspecified; M19.90 Unspecified osteoarthritis, unspecified site; E78.00 Pure hypercholesterolemia, unspecified; D63.0 Anemia in neoplastic disease; G45.9 Transient cerebral ischemic attack, unspecified; Z90.49 Acquired absence of other specified parts of digestive tract; Z89.611 Acquired absence of right leg above knee; Z89.612 Acquired absence of left leg above knee
CPT/HCPCS: 36591; 80048; 80053; 82378; 85025; 96375; 96413; 96415

== ENCOUNTER 2020-06-17 13:19 | Outpatient (RCR) | payer MEDICARE, OTHER ==
[2020-04-22 13:45] LABS: BASOPHILS % (AUTO) 0 % (0-10); EOSINOPHILS # (AUTO) 0.2 10^3/uL (0.0-0.3); EOSINOPHILS % (AUTO) 3 % (0-10); HEMATOCRIT 32 % (40-54); HEMOGLOBIN 10.2 G/DL (13.3-17.7); LYMPHOCYTES # (AUTO) 1.1 X 10^3 (1.0-4.0); LYMPHOCYTES % (AUTO) 16 % (12-44); MEAN CORPUSCULAR HEMOGLOBIN 30 PG (25-34); MEAN CORPUSCULAR HGB CONC 32 G/DL (32-36); MEAN CORPUSCULAR VOLUME 94 FL (80-99); MEAN PLATELET VOLUME 8.4 FL (7.4-10.4); MONOCYTES # (AUTO) 1.3 X 10^3 (0.0-1.0); MONOCYTES % (AUTO) 19 % (0-12); NEUTROPHILS # (AUTO) 4.4 X 10^3 (1.8-7.8); NEUTROPHILS % (AUTO) 63 % (42-75); PLATELET COUNT 190 10^3/uL (130-400)
[2020-04-22 14:06] LABS: ALANINE AMINOTRANSFERASE 20 U/L (0-55); ALBUMIN 3.8 GM/DL (3.2-4.5); ALKALINE PHOSPHATASE 68 U/L (40-136); BILIRUBIN,TOTAL 0.4 MG/DL (0.1-1.0); BUN/CREATININE RATIO 20; CALCIUM 9.5 MG/DL (8.5-10.1); CARBON DIOXIDE 29 MMOL/L (21-32); CHLORIDE 103 MMOL/L (98-107); CREATININE SERUM 0.87 MG/DL (0.60-1.30); GFR ESTIMATED > 60; GLUCOSE 164 MG/DL (70-105); POTASSIUM 4.2 MMOL/L (3.6-5.0); SODIUM 139 MMOL/L (135-145); TOTAL PROTEIN 6.8 GM/DL (6.4-8.2)
[2020-04-29 14:58] LABS: BASOPHILS % (AUTO) 0 % (0-10); EOSINOPHILS # (AUTO) 0.1 10^3/uL (0.0-0.3); EOSINOPHILS % (AUTO) 3 % (0-10); HEMATOCRIT 34 % (40-54); HEMOGLOBIN 10.7 G/DL (13.3-17.7); LYMPHOCYTES % (AUTO) 19 % (12-44); MEAN CORPUSCULAR HGB CONC 32 G/DL (32-36); MEAN CORPUSCULAR VOLUME 93 FL (80-99); MEAN PLATELET VOLUME 9.3 FL (7.4-10.4); MONOCYTES # (AUTO) 0.9 X 10^3 (0.0-1.0); MONOCYTES % (AUTO) 17 % (0-12); NEUTROPHILS # (AUTO) 3.4 X 10^3 (1.8-7.8); NEUTROPHILS % (AUTO) 62 % (42-75); PLATELET COUNT 164 10^3/uL (130-400); WHITE BLOOD COUNT 5.6 10^3/uL (4.3-11.0)
[2020-04-29 15:01] LABS: MEAN CORPUSCULAR HEMOGLOBIN 29 PG (25-34)
[2020-04-29 15:23] LABS: BUN/CREATININE RATIO 15; CARBON DIOXIDE 34 MMOL/L (21-32); CHLORIDE 103 MMOL/L (98-107); CREATININE SERUM 0.93 MG/DL (0.60-1.30); GFR ESTIMATED > 60; GLUCOSE 214 MG/DL (70-105); POTASSIUM 4.8 MMOL/L (3.6-5.0); SODIUM 138 MMOL/L (135-145)
[2020-05-07 15:53] LABS: BASOPHILS % (AUTO) 0 % (0-10); EOSINOPHILS # (AUTO) 0.1 10^3/uL (0.0-0.3); EOSINOPHILS % (AUTO) 2 % (0-10); HEMATOCRIT 30 % (40-54); HEMOGLOBIN 9.8 G/DL (13.3-17.7); LYMPHOCYTES # (AUTO) 1.2 X 10^3 (1.0-4.0); LYMPHOCYTES % (AUTO) 15 % (12-44); MEAN CORPUSCULAR HEMOGLOBIN 30 PG (25-34); MEAN CORPUSCULAR HGB CONC 33 G/DL (32-36); MEAN CORPUSCULAR VOLUME 93 FL (80-99); MEAN PLATELET VOLUME 8.6 FL (7.4-10.4); MONOCYTES # (AUTO) 1.3 X 10^3 (0.0-1.0); MONOCYTES % (AUTO) 16 % (0-12); NEUTROPHILS # (AUTO) 5.6 X 10^3 (1.8-7.8); NEUTROPHILS % (AUTO) 68 % (42-75); PLATELET COUNT 166 10^3/uL (130-400); WHITE BLOOD COUNT 8.2 10^3/uL (4.3-11.0)
[2020-05-07 16:14] LABS: BUN/CREATININE RATIO 22; CALCIUM 8.3 MG/DL (8.5-10.1); CARBON DIOXIDE 26 MMOL/L (21-32); CHLORIDE 103 MMOL/L (98-107); CREATININE SERUM 0.77 MG/DL (0.60-1.30); GFR ESTIMATED > 60; GLUCOSE 202 MG/DL (70-105); POTASSIUM 4.2 MMOL/L (3.6-5.0); SODIUM 135 MMOL/L (135-145)
[2020-05-13 13:07] LABS: BASOPHILS % (AUTO) 0 % (0-10); EOSINOPHILS # (AUTO) 0.2 10^3/uL (0.0-0.3); EOSINOPHILS % (AUTO) 2 % (0-10); HEMATOCRIT 30 % (40-54); HEMOGLOBIN 9.6 g/dL (13.3-17.7); LYMPHOCYTES # (AUTO) 1.1 10^3/uL (1.0-4.0); LYMPHOCYTES % (AUTO) 14 % (12-44); MEAN CORPUSCULAR HEMOGLOBIN 31 pg (25-34); MEAN CORPUSCULAR HGB CONC 32 g/dL (32-36); MEAN CORPUSCULAR VOLUME 95 fL (80-99); MEAN PLATELET VOLUME 9.4 fL (9.0-12.2); MONOCYTES # (AUTO) 1.2 10^3/uL (0.0-1.0); MONOCYTES % (AUTO) 15 % (0-12); NEUTROPHILS # (AUTO) 5.5 10^3/uL (1.8-7.8); NEUTROPHILS % (AUTO) 68 % (42-75); PLATELET COUNT 157 10^3/uL (130-400); WHITE BLOOD COUNT 8.1 10^3/uL (4.3-11.0)
[2020-05-13 13:29] LABS: ALANINE AMINOTRANSFERASE 22 U/L (0-55); ALBUMIN 3.3 GM/DL (3.2-4.5); ALKALINE PHOSPHATASE 71 U/L (40-136); BILIRUBIN,TOTAL 0.3 MG/DL (0.1-1.0); BUN/CREATININE RATIO 17; CALCIUM 8.5 MG/DL (8.5-10.1); CARBON DIOXIDE 26 MMOL/L (21-32); CHLORIDE 104 MMOL/L (98-107); CREATININE SERUM 0.75 MG/DL (0.60-1.30); GFR ESTIMATED > 60; GLUCOSE 201 MG/DL (70-105); POTASSIUM 4.1 MMOL/L (3.6-5.0); SODIUM 138 MMOL/L (135-145); TOTAL PROTEIN 6.2 GM/DL (6.4-8.2)
[2020-05-20 14:17] LABS: BASOPHILS % (AUTO) 1 % (0-10); EOSINOPHILS # (AUTO) 0.2 10^3/uL (0.0-0.3); EOSINOPHILS % (AUTO) 2 % (0-10); HEMATOCRIT 32 % (40-54); HEMOGLOBIN 9.9 g/dL (13.3-17.7); LYMPHOCYTES # (AUTO) 1.2 10^3/uL (1.0-4.0); LYMPHOCYTES % (AUTO) 14 % (12-44); MEAN CORPUSCULAR HEMOGLOBIN 30 pg (25-34); MEAN CORPUSCULAR HGB CONC 31 g/dL (32-36); MEAN CORPUSCULAR VOLUME 96 fL (80-99); MEAN PLATELET VOLUME 10.6 fL (9.0-12.2); MONOCYTES # (AUTO) 1.1 10^3/uL (0.0-1.0); MONOCYTES % (AUTO) 13 % (0-12); NEUTROPHILS # (AUTO) 5.7 10^3/uL (1.8-7.8); NEUTROPHILS % (AUTO) 68 % (42-75); PLATELET COUNT 147 10^3/uL (130-400); WHITE BLOOD COUNT 8.3 10^3/uL (4.3-11.0)
[2020-05-20 14:24] LABS: BUN/CREATININE RATIO 17; CARBON DIOXIDE 27 MMOL/L (21-32); CHLORIDE 104 MMOL/L (98-107); CREATININE SERUM 0.83 MG/DL (0.60-1.30); POTASSIUM 4.4 MMOL/L (3.6-5.0); SODIUM 139 MMOL/L (135-145)
[2020-05-20 14:25] LABS: CALCIUM 8.9 MG/DL (8.5-10.1); GFR ESTIMATED > 60; GLUCOSE 204 MG/DL (70-105)
[~2020-06-17] VITALS: Ht 188 cm; Wt 98.0 kg
[~2020-06-17 13:19] MED LIST changes: +ASPI-1238 PO; -ASPI-983 PO; -CLIN300C11 PO; +CLIN300C12 PO
[2020-06-17 13:40] LABS: BASOPHILS # (AUTO) 0.1 10^3/uL (0.0-0.1); BASOPHILS % (AUTO) 0 % (0-10); EOSINOPHILS % (AUTO) 0 % (0-10); HEMATOCRIT 28 % (40-54); HEMOGLOBIN 8.7 g/dL (13.3-17.7); LYMPHOCYTES % (AUTO) 5 % (12-44); MEAN CORPUSCULAR HEMOGLOBIN 29 pg (25-34); MEAN CORPUSCULAR HGB CONC 31 g/dL (32-36); MEAN CORPUSCULAR VOLUME 93 fL (80-99); MEAN PLATELET VOLUME 11.6 fL (9.0-12.2); MONOCYTES # (AUTO) 1.1 10^3/uL (0.0-1.0); MONOCYTES % (AUTO) 5 % (0-12); NEUTROPHILS # (AUTO) 17.3 10^3/uL (1.8-7.8); NEUTROPHILS % (AUTO) 88 % (42-75); PLATELET COUNT 138 10^3/uL (130-400); WHITE BLOOD COUNT 19.6 10^3/uL (4.3-11.0)
[2020-06-17 13:57] LABS: ALANINE AMINOTRANSFERASE 19 U/L (0-55); ALBUMIN 2.8 GM/DL (3.2-4.5); ALKALINE PHOSPHATASE 159 U/L (40-136); BILIRUBIN,TOTAL 0.7 MG/DL (0.1-1.0); BUN/CREATININE RATIO 25; CALCIUM 9.1 MG/DL (8.5-10.1); CARBON DIOXIDE 27 MMOL/L (21-32); CHLORIDE 100 MMOL/L (98-107); CREATININE SERUM 0.95 MG/DL (0.60-1.30); GFR ESTIMATED > 60; GLUCOSE 148 MG/DL (70-105); POTASSIUM 4.8 MMOL/L (3.6-5.0); SODIUM 136 MMOL/L (135-145); TOTAL PROTEIN 6.6 GM/DL (6.4-8.2)
[2020-06-21] MEDS ORDERED: CLOP75TA69 PO (12:48)
[2020-07-12] MEDS ORDERED: LEVO500T80 PO (13:46)
[2020-07-19] MEDS ORDERED: BETHANECHOL CHLORIDE PO (13:33)
[2020-07-19] MEDS ORDERED: LEVO500T80 PO (13:34)
== END 2020-07-21 | disposition home or self-care (01) ==
LOC: ONC 13:19
PROVIDERS: ATTEND Internal Medicine Hematology & Oncology
DX: Z51.11 Encounter for antineoplastic chemotherapy (principal); C18.7 Malignant neoplasm of sigmoid colon; C77.2 Secondary and unspecified malignant neoplasm of intra-abdominal lymph nodes; I10 Essential (primary) hypertension; E11.9 Type 2 diabetes mellitus without complications; E78.5 Hyperlipidemia, unspecified; M19.90 Unspecified osteoarthritis, unspecified site; E78.00 Pure hypercholesterolemia, unspecified; D63.0 Anemia in neoplastic disease; G45.9 Transient cerebral ischemic attack, unspecified; Z90.49 Acquired absence of other specified parts of digestive tract; Z98.890 Other specified postprocedural states; Z89.512 Acquired absence of left leg below knee; Z89.511 Acquired absence of right leg below knee
CPT/HCPCS: 80053; 85025; 96375; 96413; 96415; G0463; 36591; 80048; 82728; 83540; 99213

== ENCOUNTER 2020-06-21 12:12 | Outpatient (CLI) | payer MEDICARE, OTHER ==
[~2020-06-21] VITALS: Ht 188 cm; Wt 98.2 kg
[~2020-06-21 12:12] MED LIST changes: +CLIN300C11 PO; -CLIN300C12 PO; -D5W 500 ML IV (CANCER CTR) 500 ML IV SCH; -D5W IV SCH; -OXALIPLATIN IV SCH
[2020-06-21] MEDS ORDERED: CLOP75TA69 PO (12:48)
== END 2020-06-21 12:53 | disposition home or self-care (01) ==
LOC: PREOP 12:12
PROVIDERS: ATTEND Surgery
DX: Z01.818 Encounter for other preprocedural examination (principal)

== ENCOUNTER → 2020-06-22 | Outpatient (CLI) | payer MEDICARE, OTHER ==
[~2020-06-22] MED LIST changes: +CLOP75TA69 PO
== END ==
LOC: LAB FS 10:26
PROVIDERS: ATTEND Surgery
DX: U07.1 COVID-19 (principal); D50.9 Iron deficiency anemia, unspecified; Z80.0 Family history of malignant neoplasm of digestive organs
CPT/HCPCS: 87635

== ENCOUNTER 2020-07-08 09:00 | Emergency (ER) | payer MEDICARE, OTHER ==
[~2020-07-08] VITALS: Ht 187.9 cm; Wt 97.9 kg
[2020-07-08] MEDS ORDERED: LIDOCAINE UROJET 2% GEL 10 ML PKG ONE ×2 (09:56→11:13)
--- NOTE | 2020-07-08 10:17 | ED GU-Male ---
General Chief Complaint: - Urinary Stated Complaint: DIFFICULTY URINATING COVID + History of Present Illness Date Seen by Provider: Jul 08, 2020 Time Seen by Provider: 09:40 Initial Comments Mr. Goddard is a 75yo male presenting c/o difficulty urinating for x2 weeks. He tested positive for COVID 16 days ago, and has been quarantined the last two weeks which prevented him from seeking care until now. 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 He denies having any difficulty urinating since that time until two weeks ago. He now says he is intermittently incontinent due to being unable to void. He also admits decreased appetite and mild dyspnea on exertion. Denies pain or burning with urination. Denies dizziness, syncope, chest pain, palpitations, n/v/d/c. (MIGNON VILLEGAS MED STUDENT) Allergies and Home Medications Allergies Coded Allergies: No Known Drug Allergies (Unverified , 11/11/19) Home Medications Clopidogrel Bisulfate 75 Mg Tablet, 75 MG PO DAILY, (Reported) Insulin NPH Human Isophane 100 Unit/1 Ml Vial, 33 UNITS SQ DAILY, (Reported) Insulin NPH Human Isophane 100 Unit/1 Ml Vial, 20 UNITS SQ 1930, (Reported) Insulin Regular, Human 100 Unit/1 Ml Vial, 6 UNITS SQ DAILY, (Reported) Insulin Regular, Human 100 Unit/1 Ml Vial, 5 UNITS SQ 1930, (Reported) Lisinopril 20 Mg Tablet, 20 MG PO DAILY, (Reported) Simvastatin 20 Mg Tablet, 20 MG PO HS, (Reported) Patient Home Medication List Home Medication List Reviewed: Yes (YOSHI GIORDANO MD) Review of Systems Review of Systems Constitutional: see HPI; No dizziness, No weakness EENTM: no symptoms reported Respiratory: No cough; dyspnea on exertion; No phlegm, No wheezing Cardiovascular: No chest pain, No palpitations, No syncope Gastrointestinal: No abdominal pain, No constipation, No diarrhea, No nausea, No vomiting Genitourinary: denies burning; dysuria, incontinence; denies pain Musculoskeletal: no symptoms reported Skin: no symptoms reported Psychiatric/Neurological: No Symptoms Reported Endocrine: No Symptoms Reported (MIGNON VILLEGAS MED STUDENT) Past Jfzucir-Siyqbe-Xzylgm Hx Patient Social History Alcohol Use: Denies Use Recreational Drug Use: No Smoking Status: Never a Smoker 2nd Hand Smoke Exposure: No Recent Hopitalizations: No (MIGNON VILLEGAS MED STUDENT) Immunizations Up To Date Tetanus Booster (TDap): Unknown Date of Pneumonia Vaccine: Jun 08, 2013 Date of Influenza Vaccine: Jun 13, 2020 (MIGNON VILLEGAS MED STUDENT) Seasonal Allergies Seasonal Allergies: No (MIGNON VILLEGAS MED STUDENT) Past Medical History Surgeries: Yes (BILAT BKA, SEVERAL I&D'S, COLECTOMY WTIH RETURN TO SURGERY, colon resection) Abdominal, Orthopedic Respiratory: No Cardiac: Yes High Cholesterol, Hypertension Neurological: Yes TIA Sexually Transmitted Disease: No HIV/AIDS: No Genitourinary: Yes Benign Prostatic Hyperpl Gastrointestinal: Yes (COLON CANCER) 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 No Pertinent Family Hx (MIGNON VILLEGAS MED STUDENT) Physical Exam Vital Signs Vital Signs - First Documented 07/08/20 09:20 Temp 35.8 Pulse 108 Resp 20 B/P (MAP) 125/65 (85) Pulse Ox 98 O2 Delivery Room Air (YOSHI GIORDANO MD) Vital Signs Capillary Refill : (MIGNON VILLEGAS MED STUDENT) Height, Weight, BMI Height: 6'2.00" Weight: 201lbs. 5.0oz. 91.185595iy; 27.78 BMI Method:Stated General Appearance: WD/WN, no apparent distress HEENT: PERRL/EOMI, pharynx normal Neck: full range of motion, supple Cardiovascular: normal peripheral pulses, no edema, tachycardia, systolic murmur Respiratory: lungs clear, no respiratory distress, no accessory muscle use Gastrointestinal: normal bowel sounds, non tender, soft; No guarding, No rebound Extremities: normal range of motion, normal capillary refill Neurologic/Psychiatric: alert, normal mood/affect, oriented x 3 Skin: normal color, warm/dry (MIGNON VILLEGAS MED STUDENT) Procedures/Interventions Date of ETT Placement: Sep 05, 2019 (MIGNON VILLEGAS MED STUDENT) Progress/Results/Core Measures Suspected Sepsis SIRS Temperature: Pulse: Respiratory Rate: Blood Pressure / Mean: (MIGNON VILLEGAS MED STUDENT) Results/Orders Lab Results Laboratory Tests Test 07/08/20 13:38 Range/Units Urine Color ORANGE Urine Clarity CLOUDY Urine pH 5.5 5-9 Urine Specific [place] 1.025 H 1.016-1.022 Urine Protein 1+ H NEGATIVE Urine Glucose (UA) NEGATIVE NEGATIVE Urine Ketones NEGATIVE NEGATIVE Urine Nitrite NEGATIVE NEGATIVE Urine Bilirubin NEGATIVE NEGATIVE Urine Urobilinogen 0.2 < = 1.0 MG/DL Urine Leukocyte Esterase TRACE H NEGATIVE Urine RBC (Auto) 3+ H NEGATIVE Urine RBC >100 H /HPF Urine WBC 5-10 H /HPF Urine Crystals NONE /LPF Urine Bacteria TRACE /HPF Urine Casts NONE /LPF Urine Mucus NEGATIVE /LPF Urine Culture Indicated YES (YOSHI GIORDANO MD) My Orders Orders - YOSHI GIORDANO MD Rosales Cath (07/08/20 09:38) Lidocaine 2% (Urojet) (Xylocaine Urojet) (07/08/20 09:56) Lidocaine 2% (Urojet) (Xylocaine Urojet) (07/08/20 11:13) Bladder Scan (07/08/20 11:41) Ua Culture If Indicated (07/08/20 12:38) Urine Culture (07/08/20 13:38) (YOSHI GIORDANO MD) Vital Signs/I&O 07/08/20 07/08/20 09:20 14:00 Temp 35.8 35.8 Pulse 108 96 Resp 20 20 B/P (MAP) 125/65 (85) 117/66 (85) Pulse Ox 98 98 O2 Delivery Room Air (YOSHI GIORDANO MD) Vital Signs/I&O Capillary Refill : (MIGNON VILLEGAS MED STUDENT) Progress Note : Progress Note I personally interviewed and examined this patient. Nursing staff attempted to pass a Rosales catheter but were not successful. A 14 [place] coud catheter was then attempted by both nursing staff and myself. This was also not successful. Dr. Dukes was consulted. He presented to the emergency room and attempted to pass a catheter himself but was also unsuccessful. In the process of catheter insertions, about 300 mL of urine was drained. He had a residual volume on bladder scan of about [address] Dukes recommended increasing his Urecholine to 50 mg 4 times daily. He will then see him in the office tomorrow for cystoscopy. (YOSHI GIORDANO MD) Departure Impression Primary Impression: Urinary obstruction Disposition: 01 HOME, SELF-CARE Condition: Improved Departure-Patient Inst. Decision time for Depature: 13:00 (YOSHI GIORDANO MD) Referrals: DIONICIO VILLARREAL MD (PCP) Primary Care Physician KYLE RECINOS APRN (Family) Primary Care Physician Patient Instructions: Urinary Obstruction Add. Discharge Instructions: See Dr. Dukes in his office tomorrow at 10:00. Increase the Urecholine (bethanechol) to 2 tablets (50 mg) 4 times daily. Return to the emergency room if you have worsening symptoms between now and then. All discharge instructions reviewed with patient and/or family. Voiced understanding. Medical Student Attestation and Attending Note: I have personally interviewed and examined this patient along with VINAY Velasquez. I have reviewed student documentation including history, physical, and assessments. I agree with the documentation except where otherwise noted. Exam: General: Alert, oriented, no acute distress, well developed HEENT: Normocephalic and atraumatic Heart: Regular rate and rhythm without murmur Lungs: Clear to auscultation bilaterally with normal effort Abdomen: Soft, nontender, nondistended, normal bowel sounds Neuropsych: Alert, oriented, no focal deficits Skin: Warm and dry without rashes (YOSHI GIORDANO MD) Copy Copies To 1: HONG DUKES MD, JOSEPH,MED STUDENT Jul 08, 2020 10:17 YOSHI GIORDANO MD Jul 08, 2020 12:38
[2020-07-08 13:44] LABS: BILIRUBIN,URINE NEGATIVE (NEGATIVE); CLARITY,URINE CLOUDY; COLOR,URINE ORANGE; GLUCOSE, URINE (UA) NEGATIVE (NEGATIVE); KETONES,URINE NEGATIVE (NEGATIVE); LEUKOCYTE ESTERASE ,URINE TRACE (NEGATIVE); NITRITE,URINE NEGATIVE (NEGATIVE); PH,URINE 5.5 (5-9); PROTEIN,URINE 1+ (NEGATIVE)
[2020-07-08 13:51] LABS: RBC,URINE >100 /HPF
[2020-07-08 13:52] LABS: BACTERIA,URINE TRACE /HPF
--- NOTE | 2020-07-08 13:52 | CONSULTATION REPORT ---
DATE OF SERVICE: 07/08/2020 ATTENDING PHYSICIAN: Hernan Titus MD SUMMARY: A 75-year-old white man with history of BPH, neurogenic bladder and retention, underwent a transurethral resection of the prostate in December, was doing well except for retention secondary to neurogenic bladder, which responded well to Urecholine 25 mg q.i.d. before meals and at bedtime. He presented to the emergency room in retention. Attempt to catheter twice, could apparently just get the tip of the catheter into the bladder to drain 300 mL and then the second time 100 mL with relief of the . The patient was doing well before that, he was seen in couple times after the surgery and was doing well, emptying well. I went ahead and attempted to pass a coude catheter #16; however, again same scenario, I could just get the tip draining some urine, but could not push it all the way and there was no bleeding, no trauma. I discontinued further attempt. IMPRESSION: Urinary retention. PLAN: The patient will come to my office tomorrow at 10 o'clock for a cystoscopy to find exactly what is going on. If he has any problem tonight to come to the emergency room and we will either drain him in the same way or if he is distended and cannot put the catheter at all and drain his bladder, then put a suprapubic puncture cystostomy tube. Job ID: [id number] DocumentID: [id number] Dictated Date: 07/08/2020 13:15:37 Balance Engineer Date: 07/08/2020 13:51:26 Dictated By: HONG DUKES MD
[2020-07-08 14:00] VITALS: BP 117/66
== END 2020-07-08 14:00 | disposition home or self-care (01) ==
LOC: EDUNIT# 09:00 → ER 09:02
DX: N13.9 Obstructive and reflux uropathy, unspecified (principal); I10 Essential (primary) hypertension; E78.00 Pure hypercholesterolemia, unspecified; Z85.038 Personal history of other malignant neoplasm of large intestine; Z86.73 Personal history of transient ischemic attack (TIA), and cerebral infarction without residual deficits; E11.9 Type 2 diabetes mellitus without complications; Z79.4 Long term (current) use of insulin
CPT/HCPCS: 81000; 87088; 99283

== ENCOUNTER 2020-07-12 12:03 | Emergency (ER) | payer MEDICARE, OTHER ==
[2020-07-12] MEDS ORDERED: DEXTROSE 50% 50 ML (IMS) SYR IV STA ×2 (12:13→12:17)
--- NOTE | 2020-07-12 12:23 | ED General ---
General Chief Complaint: Glucose Problems Stated Complaint: FALL Source of Information: Patient, EMS History of Present Illness Date Seen by Provider: Jul 12, 2020 Time Seen by Provider: 12:04 Initial Comments 75 yo male presenting from home with complaints of generalized weakness. He is a diabetic and uses insulin both regular and NPH. He states that his sugar last night was a little over 100 when he went to bed. This morning he was too weak to get out of bed and had slid to the floor. Before he could get his prosthesis on his legs to help walk to the kitchen to get breakfast and help with his sugar he was still weak. EMS had come to the house and helped him get back into the bed. however they did not help him get his prosthesis on or help him get anything to eat. He continued to be weak and slipped out of his wheelchair before he could get anything to eat. when EMS came back the second time, his sugar was only around 30. as there was no provider able to start an IV on him he was given oral glucose but that was still not enough to bring his sugar up. He was brought into the emergency Department and his sugar was still 30. An IV was started and he was given an amp of D50. We'll check basic labs and try to feed him a meal. Allergies and Home Medications Allergies Coded Allergies: No Known Drug Allergies (Unverified , 11/11/19) Home Medications Clopidogrel Bisulfate 75 Mg Tablet, 75 MG PO DAILY, (Reported) Insulin NPH Human Isophane 100 Unit/1 Ml Vial, 33 UNITS SQ DAILY, (Reported) Insulin NPH Human Isophane 100 Unit/1 Ml Vial, 20 UNITS SQ 1930, (Reported) Insulin Regular, Human 100 Unit/1 Ml Vial, 6 UNITS SQ DAILY, (Reported) Insulin Regular, Human 100 Unit/1 Ml Vial, 5 UNITS SQ 1930, (Reported) Levofloxacin 500 Mg Tablet, 500 MG PO DAILY Prescribed by: NESS BURGOS on 07/12/20 1346 Lisinopril 20 Mg Tablet, 20 MG PO DAILY, (Reported) Simvastatin 20 Mg Tablet, 20 MG PO HS, (Reported) Patient Home Medication List Home Medication List Reviewed: Yes Review of Systems Review of Systems Constitutional: No chills, No fever; weakness (today with not being able to eat and bring his sugar up) EENTM: no symptoms reported Respiratory: no symptoms reported Cardiovascular: no symptoms reported Gastrointestinal: no symptoms reported Genitourinary: other (indwelling moore catheter) Musculoskeletal: joint pain (had some right hip cramping from laying on the f macey but it resolved with moving him up to the bed and the cot. ) Skin: no symptoms reported Psychiatric/Neurological: Weakness (generalized) Past Gxnipwn-Lijmaf-Aydpgg Hx Past Med/Social Hx: Reviewed Nursing Past Med/Soc Hx Patient Social History 2nd Hand Smoke Exposure: No Recent Hopitalizations: No Immunizations Up To Date Tetanus Booster (TDap): Unknown Date of Pneumonia Vaccine: Jun 08, 2013 Date of Influenza Vaccine: Jun 13, 2020 Seasonal Allergies Seasonal Allergies: No Past Medical History Surgeries: Yes (BILAT BKA, SEVERAL I&D'S, COLECTOMY WTIH RETURN TO SURGERY, colon resection) Prostatectomy Respiratory: No Cardiac: Yes High Cholesterol, Hypertension Neurological: Yes TIA Sexually Transmitted Disease: No HIV/AIDS: No Genitourinary: Yes Benign Prostatic Hyperpl Gastrointestinal: Yes (COLON CANCER) 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 No Pertinent Family Hx Physical Exam Vital Signs Vital Signs - First Documented 07/12/20 12:09 Temp 36.0 Pulse 104 Resp 16 B/P (MAP) 111/66 (81) Pulse Ox 100 Capillary Refill : Height, Weight, BMI Height: 6'2.00" Weight: 201lbs. 5.0oz. 91.355695yp; 27.00 BMI Method:Stated General Appearance: No Apparent Distress, WD/WN, Other (disheveled and poor hyg iene) HEENT: PERRL/EOMI, Pharynx Normal, Other (slightly dry) Neck: Supple Respiratory: Chest Non Tender, Lungs Clear, Normal Breath Sounds Cardiovascular: Regular Rate, Rhythm, Normal Peripheral Pulses, Systolic Murmur (4/6) Gastrointestinal: Normal Bowel Sounds, No Pulsatile Mass, Non Tender, Soft Rectal: Deferred Extremity: Normal Capillary Refill, Normal Range of Motion, Other (bilateral lower extremity amputee) Neurologic/Psychiatric: Alert, Oriented x3 Skin: Warm/Dry, Pallor Procedures/Interventions Date of ETT Placement: Sep 05, 2019 Progress/Results/Core Measures Suspected Sepsis SIRS Temperature: Pulse: Respiratory Rate: Laboratory Tests 07/12/20 12:10: White Blood Count 17.9H Blood Pressure / Mean: Laboratory Tests 07/12/20 12:10: Creatinine 0.62, Platelet Count 177, Total Bilirubin 0.4 Results/Orders Lab Results Laboratory Tests Test 07/12/20 12:10 07/12/20 12:30 07/12/20 12:39 07/12/20 13:35 Range/Units White Blood Count 17.9 H 4.3-11.0 10^3/uL Red Blood Count 3.28 L 4.35-5.85 10^6/uL Hemoglobin 8.7 L 13.3-17.7 G/DL Hematocrit 29 L 40-54 % Mean Corpuscular Volume 88 80-99 FL Mean Corpuscular Hemoglobin 27 25-34 PG Mean Corpuscular Hemoglobin Concent 30 L 32-36 G/DL Red Cell Distribution Width 22.5 H 10.0-14.5 % Platelet Count 177 130-400 10^3/uL Mean Platelet Volume 11.9 H 7.4-10.4 FL Immature Granulocyte % (Auto) 1 % Neutrophils (%) (Auto) 91 H 42-75 % Lymphocytes (%) (Auto) 3 L 12-44 % Monocytes (%) (Auto) 4 0-12 % Eosinophils (%) (Auto) 0 0-10 % Basophils (%) (Auto) 0 0-10 % Neutrophils # (Auto) 16.3 H 1.8-7.8 X 10^3 Lymphocytes # (Auto) 0.6 L 1.0-4.0 X 10^3 Monocytes # (Auto) 0.7 0.0-1.0 X 10^3 Eosinophils # (Auto) 0.0 0.0-0.3 10^3/uL Basophils # (Auto) 0.0 0.0-0.1 10^3/uL Immature Granulocyte # (Auto) 0.2 H 0.0-0.1 10^3/uL Neutrophils % (Manual) 85 % Lymphocytes % (Manual) 2 % Monocytes % (Manual) 1 % Eosinophils % (Manual) 0 % Band Neutrophils 12 % Hypochromasia SLIGHT Anisocytosis MODERATE Elliptocytes SLIGHT Sodium Level 136 135-145 MMOL/L Potassium Level 4.1 3.6-5.0 MMOL/L Chloride Level 103 98-107 MMOL/L Carbon Dioxide Level 26 21-32 MMOL/L Anion Gap 7 5-14 MMOL/L Blood Urea Nitrogen 25 H 7-18 MG/DL Creatinine 0.62 0.60-1.30 MG/DL Estimat Glomerular Filtration Rate > 60 BUN/Creatinine Ratio 40 Glucose Level 37 *L 70-105 MG/DL Glucometer 29 *L 106 157 H 70-110 MG/DL Calcium Level 8.2 L 8.5-10.1 MG/DL Corrected Calcium 9.7 8.5-10.1 MG/DL Total Bilirubin 0.4 0.1-1.0 MG/DL Aspartate Amino Transf (AST/SGOT) 25 5-34 U/L Alanine Aminotransferase (ALT/SGPT) 14 0-55 U/L Alkaline Phosphatase 206 H 40-136 U/L Total Protein 6.0 L 6.4-8.2 GM/DL Albumin 2.1 L 3.2-4.5 GM/DL Lipase 6 L 8-78 U/L Urine Color YELLOW Urine Clarity CLOUDY Urine pH 7.5 5-9 Urine Specific [place] 1.020 1.016-1.022 Urine Protein 2+ H NEGATIVE Urine Glucose (UA) 3+ H NEGATIVE Urine Ketones TRACE H NEGATIVE Urine Nitrite POSITIVE H NEGATIVE Urine Bilirubin NEGATIVE NEGATIVE Urine Urobilinogen 0.2 < = 1.0 MG/DL Urine Leukocyte Esterase 2+ H NEGATIVE Urine RBC (Auto) 3+ H NEGATIVE Urine RBC >100 H /HPF Urine WBC >100 H /HPF Urine Crystals NONE /LPF Urine Bacteria MODERATE H /HPF Urine Casts NONE /LPF Urine Mucus NEGATIVE /LPF Urine Culture Indicated YES My Orders Orders - NESS BURGOS MD Comprehensive Metabolic Panel (07/12/20 12:13) Lipase (07/12/20 12:13) Ua Culture If Indicated (07/12/20 12:13) Ed Iv/Invasive Line Start (07/12/20 12:13) Cbc With Automated Diff (07/12/20 12:13) D50w (Emergency) Syringe (Dextrose 50% 5 (07/12/20 12:17) Manual Differential (07/12/20 12:10) Urine Culture (07/12/20 12:30) Levofloxacin Tablet (Levaquin Tablet) (07/12/20 13:32) Accucheck Stat ONCE (07/12/20 13:32) Vital Signs/I&O 07/12/20 07/12/20 12:09 14:03 Temp 36.0 Pulse 104 108 Resp 16 18 B/P (MAP) 111/66 (81) 107/63 Pulse Ox 100 99 Capillary Refill : Progress Note #1: Progress Note on arrival his glucose was still low and an IV was established so he could be given an amp of D50. basic labs are sent and he is to be fed here in ED to see if glucose can be maintained. Progress Note #2: Progress Note labs show elevated WBC with stable chronic anemia. This is overall stable or improved from June 17. Chemistry stable without acute significant abnormality other than known hypoglycemia. With his amp of D 50 and then eating lunch here he has been able to bring his glucose up to a steady level and is alert and talkative at discharge. Encouraged to take full course of antibiotics for catheter associated UTI which is likely causing his elevated WBC count since he has no other focal sign of infection. Departure Impression Primary Impression: Hypoglycemia associated with diabetes Additional Impression: Urinary tract infection associated with catheterization of urinary tract Qualified Codes: T83.511A - Infection and inflammatory reaction due to indwelling urethral catheter, initial encounter; N39.0 - Urinary tract infection, site not specified Disposition: 01 HOME, SELF-CARE Condition: Stable Departure-Patient Inst. Decision time for Depature: 13:42 Referrals: DIONICIO VILLARREAL MD (PCP) Primary Care Physician KYLE RECINOS APRN (Family) Primary Care Physician HONG DUKES MD Patient Instructions: How to Care for Your Moore Catheter, Male, How to Prevent Catheter Associated Urinary Tract Infections, Low Blood Sugar in People With Diabetes, Urinary Tract Infection, Adult (DC) Add. Discharge Instructions: Make sure to eat small frequent meals to help keep your blood sugar at a more even level. Take the full course of antibiotics to treat for urine infection and check with Dr. Dukes to see when he wants to see you to have the catheter removed. Drink plenty of water to help flush out the infection and stay well hydrated. All discharge instructions reviewed with patient and/or family. Voiced understanding. Scripts Levofloxacin (Levofloxacin) 500 Mg Tablet 500 MG PO DAILY for UTI for 6 Days, #6 TAB 0 Refills Prov: NESS BURGOS MD 07/12/20 NESS BURGOS MD Jul 12, 2020 12:23
[2020-07-12 12:24] LABS: BASOPHILS % (AUTO) 0 % (0-10); EOSINOPHILS % (AUTO) 0 % (0-10); HEMATOCRIT 29 % (40-54); HEMOGLOBIN 8.7 G/DL (13.3-17.7); LYMPHOCYTES # (AUTO) 0.6 X 10^3 (1.0-4.0); LYMPHOCYTES % (AUTO) 3 % (12-44); MEAN CORPUSCULAR HEMOGLOBIN 27 PG (25-34); MEAN CORPUSCULAR HGB CONC 30 G/DL (32-36); MEAN CORPUSCULAR VOLUME 88 FL (80-99); MEAN PLATELET VOLUME 11.9 FL (7.4-10.4); MONOCYTES # (AUTO) 0.7 X 10^3 (0.0-1.0); MONOCYTES % (AUTO) 4 % (0-12); NEUTROPHILS # (AUTO) 16.3 X 10^3 (1.8-7.8); NEUTROPHILS % (AUTO) 91 % (42-75); PLATELET COUNT 177 10^3/uL (130-400); WHITE BLOOD COUNT 17.9 10^3/uL (4.3-11.0)
[2020-07-12 12:44] LABS: ANISOCYTOSIS MODERATE; BAND NEUTROPHILS 12 %; ELLIPT/OVALOCYTES SLIGHT; EOSINOPHILS % (MANUAL) 0 %; HYPOCHROMASIA SLIGHT; LYMPHOCYTES % (MANUAL) 2 %; MONOCYTES % (MANUAL) 1 %; NEUTROPHILS % (MANUAL) 85 %
[2020-07-12 12:49] LABS: CARBON DIOXIDE 26 MMOL/L (21-32); CHLORIDE 103 MMOL/L (98-107); POTASSIUM 4.1 MMOL/L (3.6-5.0); SODIUM 136 MMOL/L (135-145)
[2020-07-12 12:50] LABS: BUN/CREATININE RATIO 40; CREATININE SERUM 0.62 MG/DL (0.60-1.30); GFR ESTIMATED > 60
[2020-07-12 12:51] LABS: ALANINE AMINOTRANSFERASE 14 U/L (0-55); ALBUMIN 2.1 GM/DL (3.2-4.5); ALKALINE PHOSPHATASE 206 U/L (40-136); BILIRUBIN,TOTAL 0.4 MG/DL (0.1-1.0); CALCIUM 8.2 MG/DL (8.5-10.1); GLUCOSE 37 MG/DL (70-105)
[2020-07-12 12:54] LABS: BACTERIA,URINE MODERATE /HPF; BILIRUBIN,URINE NEGATIVE (NEGATIVE); CLARITY,URINE CLOUDY; COLOR,URINE YELLOW; GLUCOSE, URINE (UA) 3+ (NEGATIVE); KETONES,URINE TRACE (NEGATIVE); LEUKOCYTE ESTERASE ,URINE 2+ (NEGATIVE); NITRITE,URINE POSITIVE (NEGATIVE); PH,URINE 7.5 (5-9); PROTEIN,URINE 2+ (NEGATIVE); RBC,URINE >100 /HPF; WBC,URINE >100 /HPF
[2020-07-12 13:26] LABS: LIPASE 6 U/L (8-78)
[2020-07-12] MEDS ORDERED: LEVOFLOXACIN 500 MG TAB (LEVAQUIN) PO STA (13:32)
[2020-07-12] MEDS ORDERED: LEVO500T80 PO (13:46)
[2020-07-12 14:03] VITALS: BP 107/63
== END 2020-07-12 14:08 | disposition home or self-care (01) ==
LOC: EDUNIT# 12:03 → ER FS 12:07
DX: E11.649 Type 2 diabetes mellitus with hypoglycemia without coma (principal); T83.518A Infection and inflammatory reaction due to other urinary catheter, initial encounter; E78.00 Pure hypercholesterolemia, unspecified; I10 Essential (primary) hypertension; Z79.4 Long term (current) use of insulin; Z85.038 Personal history of other malignant neoplasm of large intestine; Z86.73 Personal history of transient ischemic attack (TIA), and cerebral infarction without residual deficits
CPT/HCPCS: 36415; 80053; 81000; 82962; 83690; 85007; 85027; 87077; 87088

== ENCOUNTER 2020-07-14 10:26 | Emergency (ER) | payer MEDICARE, OTHER ==
[~2020-07-14] VITALS: Ht 187.9 cm; Wt 97.9 kg
[~2020-07-14 10:26] MED LIST changes: +LEVO500T80 PO
[2020-07-14] MEDS ORDERED: D5 NS 1000 ML IV SOLUTION 1,000 ML IV ONE (10:36)
[2020-07-14] MEDS ORDERED: LACTATED RINGERS 1,000 ML IV ONE (10:38)
[2020-07-14] MEDS ORDERED: VANCOMYCIN INJECTION 2,000 MG in NS IV 500 ML 500 ML IV ONE (10:38)
[2020-07-14] MEDS ORDERED: CEFEPIME INJECTION 1,000 MG in WATER (STERILE) FOR INJECTION 10 ML IV ONE (10:45)
[2020-07-14] MEDS ORDERED: D5 NS 1000 ML IV SOLUTION 1,000 ML IV SCH (10:45)
[2020-07-14 10:49] LABS: BASOPHILS % (AUTO) 0 % (0-10); EOSINOPHILS # (AUTO) 0.3 10^3/uL (0.0-0.3); EOSINOPHILS % (AUTO) 2 % (0-10); HEMATOCRIT 26 % (40-54); HEMOGLOBIN 7.8 g/dL (13.3-17.7); LYMPHOCYTES # (AUTO) 0.5 10^3/uL (1.0-4.0); LYMPHOCYTES % (AUTO) 4 % (12-44); MEAN CORPUSCULAR HEMOGLOBIN 27 pg (25-34); MEAN CORPUSCULAR HGB CONC 30 g/dL (32-36); MEAN CORPUSCULAR VOLUME 90 fL (80-99); MEAN PLATELET VOLUME 12.5 fL (9.0-12.2); MONOCYTES # (AUTO) 0.8 10^3/uL (0.0-1.0); MONOCYTES % (AUTO) 6 % (0-12); NEUTROPHILS % (AUTO) 87 % (42-75); PLATELET COUNT 230 10^3/uL (130-400); WHITE BLOOD COUNT 13.8 10^3/uL (4.3-11.0)
--- NOTE | 2020-07-14 10:49 | ED General ---
General Stated Complaint: LOW BLOOD SUGAR Source of Information: Patient Exam Limitations: No Limitations History of Present Illness Date Seen by Provider: Jul 14, 2020 Time Seen by Provider: 10:29 Initial Comments Patient presents ER by EMS from [place], [place] with chief complaint of hypoglycemia sugar 41. He was incoherent but after they gave him an amp of D50 and his blood sugar came up to 118. Before they got to the ER was 81. He is alert oriented 4 and answering questions. He is on an antibiotic for UTI with urinary retention and had a Rosales catheter placed Sunday, last week. He has a history of colon cancer and was holding his Plavix in anticipation of a colonoscopy for surveillance. He is not having any nausea vomiting diarrhea. He's having some right lower quadrant abdominal discomfort. He's had colon resection but still has gallbladder and appendix intact. Dr. Gray urology had to place the Rosales catheter because of his presumed prostatism. Patient is not on any other blood thinners and denies a history of atrial fibrillation. EMS reports he has A. fib 139 on arrival. The patient denies any chest pain or history of coronary disease. He says he has never had a heart catheterization or stent. Patient denies that he has been missing any doses of medications recently. He does not know his last A1c is but he has had bilateral below the knee amputations. Allergies and Home Medications Allergies Coded Allergies: No Known Drug Allergies (Unverified , 11/11/19) Home Medications Clopidogrel Bisulfate 75 Mg Tablet, 75 MG PO DAILY, (Reported) Insulin NPH Human Isophane 100 Unit/1 Ml Vial, 33 UNITS SQ DAILY, (Reported) Insulin NPH Human Isophane 100 Unit/1 Ml Vial, 20 UNITS SQ 1930, (Reported) Insulin Regular, Human 100 Unit/1 Ml Vial, 6 UNITS SQ DAILY, (Reported) Insulin Regular, Human 100 Unit/1 Ml Vial, 5 UNITS SQ 1930, (Reported) Levofloxacin 500 Mg Tablet, 500 MG PO DAILY Prescribed by: NESS BURGOS on 07/12/20 1346 Lisinopril 20 Mg Tablet, 20 MG PO DAILY, (Reported) Simvastatin 20 Mg Tablet, 20 MG PO HS, (Reported) Patient Home Medication List Home Medication List Reviewed: Yes Review of Systems Review of Systems Constitutional: No chills, No diaphoresis, No fever EENTM: No ear discharge, No ear pain Respiratory: No cough, No short of breath Cardiovascular: No see HPI, No chest pain, No edema Gastrointestinal: abdominal pain, diarrhea; No nausea, No vomiting Genitourinary: see HPI; No discharge; dysuria Musculoskeletal: No back pain, No joint pain Psychiatric/Neurological: Denies Anxiety, Denies Depressed All Other Systems Reviewed Negative Unless Noted: Yes Past Qcuwedj-Nmjppd-Hcgkyh Hx Patient Social History Alcohol Use: Denies Use Recreational Drug Use: No Smoking Status: Never a Smoker 2nd Hand Smoke Exposure: No Recent Hopitalizations: No Immunizations Up To Date Tetanus Booster (TDap): Unknown Date of Pneumonia Vaccine: Jun 08, 2013 Date of Influenza Vaccine: Jun 13, 2020 Seasonal Allergies Seasonal Allergies: No Past Medical History Surgeries: Yes (BILAT BKA, SEVERAL I&D'S, COLECTOMY WTIH RETURN TO SURGERY, colon resection) Prostatectomy Respiratory: No Cardiac: Yes (heart murmur) High Cholesterol, Hypertension Neurological: Yes TIA Sexually Transmitted Disease: No HIV/AIDS: No Genitourinary: Yes Benign Prostatic Hyperpl Gastrointestinal: Yes (COLON CANCER) 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 No Pertinent Family Hx Physical Exam-Suspected Sepsis Physical Exam Vital Signs Vital Signs - First Documented 07/14/20 10:26 Temp 34.6 Pulse 114 Resp 27 B/P (MAP) 106/75 (85) Pulse Ox 97 O2 Delivery Room Air Capillary Refill : Height, Weight, BMI Height: 6'2.00" Weight: 201lbs. 5.0oz. 91.275216mm; 27.00 BMI Method:Stated General Appearance: Chronically ill, Moderate Distress Eyes: Bilateral Eye Normal Inspection, Bilateral Eye PERRL, Bilateral Eye EOMI HEENT: PERRL/EOMI, TMs Normal, Pharynx Normal; No Moist Mucous Membranes Neck: Full Range of Motion, Normal Inspection, Non Tender Respiratory: Lungs Clear, Normal Breath Sounds, No Accessory Muscle Use, No Respiratory Distress Cardiovascular: Regular Rate, Rhythm, No Edema, Normal Peripheral Pulses Gastrointestinal: Normal Bowel Sounds, Non Tender, Soft Extremity: Normal Capillary Refill, Normal Range of Motion, Non Tender, No Peda l Edema, Other (bilateral below the knee amputation with no acute breakdown.) Neurologic/Psychiatric: Alert, Oriented x3, No Motor/Sensory Deficits Skin: normal color, warm/dry Focused Exam Lactate Level 07/14/20 10:36: Lactic Acid Level 1.02 Lactic Acid Level Procedures/Interventions Date of ETT Placement: Sep 05, 2019 Progress/Results/Core Measures Suspected Sepsis SIRS Temperature: Pulse: Respiratory Rate: Laboratory Tests 07/14/20 10:36: White Blood Count 13.8H Blood Pressure / Mean: 07/14/20 10:36: Lactic Acid Level 1.02 Laboratory Tests 07/14/20 10:36: Creatinine 0.69, INR Comment 1.3, Platelet Count 230, Total Bilirubin 0.3 Results/Orders Lab Results Laboratory Tests Test 07/14/20 10:33 07/14/20 10:36 07/14/20 11:12 07/14/20 11:48 Range/Units Glucometer 57 *L 58 *L 70-110 MG/DL White Blood Count 13.8 H 4.3-11.0 10^3/uL Red Blood Count 2.87 L 4.30-5.52 10^6/uL Hemoglobin 7.8 L 13.3-17.7 g/dL Hematocrit 26 L 40-54 % Mean Corpuscular Volume 90 80-99 fL Mean Corpuscular Hemoglobin 27 25-34 pg Mean Corpuscular Hemoglobin Concent 30 L 32-36 g/dL Red Cell Distribution Width 22.7 H 10.0-14.5 % Platelet Count 230 130-400 10^3/uL Mean Platelet Volume 12.5 H 9.0-12.2 fL Immature Granulocyte % (Auto) 1 % Neutrophils (%) (Auto) 87 H 42-75 % Lymphocytes (%) (Auto) 4 L 12-44 % Monocytes (%) (Auto) 6 0-12 % Eosinophils (%) (Auto) 2 0-10 % Basophils (%) (Auto) 0 0-10 % Neutrophils # (Auto) 12.0 H 1.8-7.8 10^3/uL Lymphocytes # (Auto) 0.5 L 1.0-4.0 10^3/uL Monocytes # (Auto) 0.8 0.0-1.0 10^3/uL Eosinophils # (Auto) 0.3 0.0-0.3 10^3/uL Basophils # (Auto) 0.0 0.0-0.1 10^3/uL Immature Granulocyte # (Auto) 0.1 0.0-0.1 10^3/uL Neutrophils % (Manual) 91 % Lymphocytes % (Manual) 4 % Monocytes % (Manual) 2 % Eosinophils % (Manual) 2 % Basophils % (Manual) 0 % Band Neutrophils 1 % Poikilocytosis SLIGHT Anisocytosis MODERATE Elliptocytes SLIGHT Prothrombin Time 16.1 H 12.2-14.7 SEC INR Comment 1.3 0.8-1.4 Activated Partial Thromboplast Time 37 H 24-35 SEC Sodium Level 137 135-145 MMOL/L Potassium Level 4.2 3.6-5.0 MMOL/L Chloride Level 104 98-107 MMOL/L Carbon Dioxide Level 27 21-32 MMOL/L Anion Gap 6 5-14 MMOL/L Blood Urea Nitrogen 25 H 7-18 MG/DL Creatinine 0.69 0.60-1.30 MG/DL Estimat Glomerular Filtration Rate > 60 BUN/Creatinine Ratio 36 Glucose Level 61 L 70-105 MG/DL Lactic Acid Level 1.02 0.50-2.00 MMOL/L Calcium Level 7.1 L 8.5-10.1 MG/DL Corrected Calcium 8.6 8.5-10.1 MG/DL Total Bilirubin 0.3 0.1-1.0 MG/DL Aspartate Amino Transf (AST/SGOT) 33 5-34 U/L Alanine Aminotransferase (ALT/SGPT) 20 0-55 U/L Alkaline Phosphatase 166 H 40-136 U/L Total Protein 5.3 L 6.4-8.2 GM/DL Albumin 2.1 L 3.2-4.5 GM/DL Urine Color YELLOW Urine Clarity CLEAR Urine pH 5.5 5-9 Urine Specific [place] 1.025 H 1.016-1.022 Urine Protein TRACE H NEGATIVE Urine Glucose (UA) NEGATIVE NEGATIVE Urine Ketones NEGATIVE NEGATIVE Urine Nitrite NEGATIVE NEGATIVE Urine Bilirubin NEGATIVE NEGATIVE Urine Urobilinogen 0.2 < = 1.0 MG/DL Urine Leukocyte Esterase 1+ H NEGATIVE Urine RBC (Auto) 1+ H NEGATIVE Urine RBC 5-10 H /HPF Urine WBC 10-25 H /HPF Urine Crystals NONE /LPF Urine Bacteria TRACE /HPF Urine Casts NONE /LPF Urine Mucus SMALL H /LPF Urine Culture Indicated YES Test 07/14/20 13:02 Range/Units Glucometer 68 L 70-110 MG/DL My Orders Orders - BRET ARREDONDO D5 Ns 1000 Ml Iv Solution (Dextrose 5%/0 (07/14/20 10:36) D5 Ns 1000 Ml Iv Solution (Dextrose 5%/0 (07/14/20 10:45) Accucheck Stat ONCE (07/14/20 10:38) Cbc With Automated Diff (07/14/20 10:38) Comprehensive Metabolic Panel (07/14/20 10:38) Blood Culture (07/14/20 10:38) Urinalysis (07/14/20 10:38) Urine Culture (07/14/20 10:38) Protime With Inr (07/14/20 10:38) Partial Thromboplastin Time (07/14/20 10:38) Chest 1 View, Ap/Pa Only (07/14/20 10:38) Ed Iv/Invasive Line Start (07/14/20 10:38) Ed Iv/Invasive Line Start (07/14/20 10:38) Ekg Tracing (07/14/20 10:38) Vital Signs Adult Sepsis Patie Q15M (07/14/20 10:38) O2 (07/14/20 10:38) Remove Rings In Anticipation O (07/14/20 10:38) Lactic Acid Analyzer (07/14/20 10:38) Lactated Ringers (Lr 1000 Ml Iv Solution (07/14/20 10:38) Cefepime Injection (Maxipime Injection) (07/14/20 10:45) Vancomycin Injection (Vancomycin Injecti (07/14/20 10:38) Manual Differential (07/14/20 10:36) Accucheck Stat ONCE (07/14/20 11:43) Accucheck Stat ONCE (07/14/20 12:44) Echo W Doppler/Color Flow (07/14/20 12:44) Medications Given in ED Current Medications Medications Dose Ordered Sig/Sommer Route Start Time Stop Time Status Last Admin Dose Admin Cefepime HCl 1000 mg/Sterile Water 10 ml @ 200 mls/hr ONCE ONCE IV 07/14/20 10:45 07/14/20 10:47 DC 07/14/20 11:41 200 MLS/HR Lactated Ringer's 1,000 ml @ 0 mls/hr Q0M ONCE IV 07/14/20 10:38 07/14/20 10:44 DC 07/14/20 11:41 0 MLS/HR Vancomycin HCl 2000 mg/Sodium Chloride 500 ml @ 260 mls/hr 1038 ONCE IV 07/14/20 10:38 07/14/20 12:33 DC 07/14/20 11:40 260 MLS/HR Vital Signs/I&O 07/14/20 07/14/20 10:26 14:36 Temp 34.6 Pulse 114 113 Resp 27 24 B/P (MAP) 106/75 (85) 113/63 Pulse Ox 97 95 O2 Delivery Room Air Room Air Capillary Refill : Progress Note #1: Time: 10:49 Progress Note Suspect UTI and sepsis. Plan to let him out of the rest of the liter of fluids initiated by EMS. We started some D5 1 100 cc an hour and we'll recheck a blood sugar shortly. Initial blood sugar on arrival was in the 50s. Septic workup with broad-spectrum antibiotics cefepime and vancomycin. EKG shows P waves not well seen on tele. Progress Note #2: Time: 12:22 Progress Note Patient is doing much better. The blood sugar is 85 but he is still oriented so we ordered a meal tray which he is eating. The D5 saline continues. We discussed the case with Dr. Sharma who agrees to come see the patient. She thinks he would be appropriate for [place] since the bed status is very tight here at [facility]. He did have COVID-19 back on 06/22/20 and has some leftover scarring seen on x-ray but viral pneumonia is not his part of his current presentation. ECG Initial ECG Impression Date: Jul 14, 2020 Initial ECG Impression Time: 10:52 Initial ECG Rate: 114 Initial ECG Rhythm: S.Tach Initial ECG Intervals: Normal Initial ECG Impression: Normal, Nonspecific Changes Initial ECG Comparisson: No Previous ECG Available Comment No clinically relevant ST changes. Normal sinus tachycardia. Diagnostic Imaging Diagonstic Imaging: Xray Plain Films/CT/US/NM/MRI: chest Comments NAME: GEE QUIGLEY [facility] REC#: [id number] PT STATUS: REG ER : 1945 PHYSICIAN: BRET ARREDONDO MD ADMIT DATE: 07/14/20/ER Draft Date of Exam:07/14/20 CHEST 1 VIEW, AP/PA ONLY INDICATION: Sepsis. COMPARISON: 01/02/2020. FINDINGS: There is new bilateral pleural effusions greater left. Right IJ catheter stable at the SVC. Heart size mildly increased and is at the upper limits of normal. There is some increased prominence of the central vascularity. There is perihilar mixed interstitial and airspace opacities suspicious for edema, however pneumonia not excluded. IMPRESSION: Increased heart size, vascular caliber and left greater than right pleural effusions with perihilar pulmonary disease edema versus pneumonia. Dictated on workstation # [id number] Dict: 07/14/20 1124 Trans: 07/14/20 1129 [id number] Interpreted by: CATHI GONZALEZ Electronically signed by: Reviewed: Reviewed by Me Departure Impression Primary Impression: Hypoglycemia Additional Impressions: Sepsis Qualified Codes: A41.9 - Sepsis, unspecified organism UTI (urinary tract infection) Qualified Codes: N30.00 - Acute cystitis without hematuria Disposition: SHT-TRM HOSP Condition: Stable Transfer Transfer Reason: Diversion Time Spoke to Accepting Phy: 12:20 Transfer Progress Notes Due to limited beds we discussed going to [place] and the patient is okay with this. Dr. Sharma is okay to take the patient to [place] as long as he can get an echocardiogram obtained before he leaves the ER. Transfer Facility: [facility] Method of Transfer: EMS Departure-Patient Inst. Referrals: DIONICIO VILLARREAL MD (PCP) Primary Care Physician KYLE RECINOS APRN (Family) Primary Care Physician BRET ARREDONDO Jul 14, 2020 10:49
[2020-07-14 11:03] LABS: ALBUMIN 2.1 GM/DL (3.2-4.5); CHLORIDE 104 MMOL/L (98-107); POTASSIUM 4.2 MMOL/L (3.6-5.0); SODIUM 137 MMOL/L (135-145)
[2020-07-14 11:04] LABS: CALCIUM 7.1 MG/DL (8.5-10.1)
[2020-07-14 11:05] LABS: GLUCOSE 61 MG/DL (70-105); INR 1.3 (0.8-1.4); PROTHROMBIN TIME PATIENT 16.1 SEC (12.2-14.7)
[2020-07-14 11:06] LABS: TOTAL PROTEIN 5.3 GM/DL (6.4-8.2)
[2020-07-14 11:07] LABS: BILIRUBIN,TOTAL 0.3 MG/DL (0.1-1.0); CARBON DIOXIDE 27 MMOL/L (21-32)
[2020-07-14 11:09] LABS: ALKALINE PHOSPHATASE 166 U/L (40-136); CREATININE SERUM 0.69 MG/DL (0.60-1.30); GFR ESTIMATED > 60
[2020-07-14 11:10] LABS: BUN/CREATININE RATIO 36
[2020-07-14 11:11] LABS: ANISOCYTOSIS MODERATE; BAND NEUTROPHILS 1 %; BASOPHILS % (MANUAL) 0 %; ELLIPT/OVALOCYTES SLIGHT; EOSINOPHILS % (MANUAL) 2 %; LYMPHOCYTES % (MANUAL) 4 %; MONOCYTES % (MANUAL) 2 %; NEUTROPHILS % (MANUAL) 91 %; POIKILOCYTOSIS SLIGHT
[2020-07-14 11:12] LABS: ALANINE AMINOTRANSFERASE 20 U/L (0-55)
[2020-07-14 11:23] LABS: BILIRUBIN,URINE NEGATIVE (NEGATIVE); CLARITY,URINE CLEAR; COLOR,URINE YELLOW; GLUCOSE, URINE (UA) NEGATIVE (NEGATIVE); KETONES,URINE NEGATIVE (NEGATIVE); LEUKOCYTE ESTERASE ,URINE 1+ (NEGATIVE); NITRITE,URINE NEGATIVE (NEGATIVE); PH,URINE 5.5 (5-9); PROTEIN,URINE TRACE (NEGATIVE)
--- NOTE | 2020-07-14 11:29 | Diagnostic Imaging Report ---
INDICATION: Sepsis. COMPARISON: 01/02/2020. FINDINGS: There is new bilateral pleural effusions greater left. Right IJ catheter stable at the SVC. Heart size mildly increased and is at the upper limits of normal. There is some increased prominence of the central vascularity. There is perihilar mixed interstitial and airspace opacities suspicious for edema, however pneumonia not excluded. IMPRESSION: Increased heart size, vascular caliber and left greater than right pleural effusions with perihilar pulmonary disease edema versus pneumonia. Dictated by: Dictated on workstation # [id number]
[2020-07-14 11:32] LABS: BACTERIA,URINE TRACE /HPF
--- NOTE | 2020-07-14 13:57 | NUR ---
ATTEMPTED TO CALL [facility] MULTIPLE TIMES TO UPDATE ON PTS PENDING TRANSFER, NO ANSWER.
[2020-07-14 14:36] VITALS: BP 113/63
--- NOTE | 2020-07-14 14:39 | NUR ---
ATTEMPTED TO CALL [facility] AGAIN, NO ANSWER.
== END 2020-07-14 14:36 | disposition short-term general hospital (02) ==
LOC: EDUNIT# 10:26 → ER 10:27
DX: E11.649 Type 2 diabetes mellitus with hypoglycemia without coma (principal); A41.9 Sepsis, unspecified organism; N39.0 Urinary tract infection, site not specified; E78.00 Pure hypercholesterolemia, unspecified; I10 Essential (primary) hypertension; Z79.4 Long term (current) use of insulin; Z85.038 Personal history of other malignant neoplasm of large intestine; Z86.73 Personal history of transient ischemic attack (TIA), and cerebral infarction without residual deficits
CPT/HCPCS: 36415; 71045; 80053; 81000; 82962; 83605; 85007; 85027; 85610; 85730; 87040; 87077; 87088

== ENCOUNTER → 2020-07-16 | Outpatient (CLI) | payer OTHER, MEDICARE ==
[~2020-07-16] MED LIST changes: +BETHANECHOL CHLORIDE PO; -CLIN300C11 PO; +CLIN300C12 PO
== END ==
LOC: LABNPT 11:00
PROVIDERS: ATTEND Internal Medicine
DX: Z01.89 Encounter for other specified special examinations (principal)
CPT/HCPCS: 84145

== ENCOUNTER → 2020-07-16 | Outpatient (CLI) | payer MEDICARE, OTHER ==
[~2020-07-16] MED LIST changes: +CLIN300C11 PO; -CLIN300C12 PO
== END ==
LOC: LABNPT 10:54
PROVIDERS: ATTEND Internal Medicine
DX: U07.1 COVID-19 (principal)

== ENCOUNTER 2020-07-17 10:44 | Inpatient (IN) | payer MEDICARE, OTHER ==
[~2020-07-17] VITALS: Ht 160 cm; Wt 99.1 kg
[~2020-07-17 10:44] MED LIST changes: -BETHANECHOL CHLORIDE PO; -CLIN300C11 PO; +CLIN300C12 PO
[2020-07-17] MEDS ORDERED: ACETAMINOPHEN 500 MG TAB (TYLENOL) PO PRN (12:00)
[2020-07-17] MEDS ORDERED: ALPRAZolam 0.25 MG (XANAX) TAB PO PRN (12:00)
[2020-07-17] MEDS ORDERED: VANCOMYCIN INJECTION 0.1 MG in NS (IVPB) 250 ML IV SCH (12:00)
[2020-07-17] MEDS ORDERED: DOCUSATE SODIUM 100 MG (COLACE) CAP PO PRN (12:00)
[2020-07-17] MEDS ORDERED: diphenhydrAMINE 25 MG TAB (BENADRYL) PO PRN (12:00)
[2020-07-17] MEDS ORDERED: ONDANSETRON 4 MG/2 ML (SDV) Z0FRAN IVP PRN (12:00)
[2020-07-17] MEDS ORDERED: CALCIUM CARBONATE 500 MG (TUMS) TAB.CHEW PO PRN (12:00)
[2020-07-17 17:10] LABS: ALBUMIN 2.2 GM/DL (3.2-4.5); BASOPHILS % (AUTO) 0 % (0-10); EOSINOPHILS % (AUTO) 0 % (0-10); HEMATOCRIT 25 % (40-54); HEMOGLOBIN 7.7 g/dL (13.3-17.7); LYMPHOCYTES # (AUTO) 0.4 10^3/uL (1.0-4.0); LYMPHOCYTES % (AUTO) 3 % (12-44); MEAN CORPUSCULAR HEMOGLOBIN 28 pg (25-34); MEAN CORPUSCULAR HGB CONC 31 g/dL (32-36); MEAN CORPUSCULAR VOLUME 89 fL (80-99); MONOCYTES # (AUTO) 0.8 10^3/uL (0.0-1.0); MONOCYTES % (AUTO) 8 % (0-12); NEUTROPHILS # (AUTO) 9.3 10^3/uL (1.8-7.8); NEUTROPHILS % (AUTO) 88 % (42-75); PLATELET COUNT 169 10^3/uL (130-400); WHITE BLOOD COUNT 10.6 10^3/uL (4.3-11.0)
[2020-07-17 17:11] LABS: CHLORIDE 98 MMOL/L (98-107); POTASSIUM 3.7 MMOL/L (3.6-5.0); SODIUM 132 MMOL/L (135-145)
[2020-07-17 17:12] LABS: CALCIUM 7.5 MG/DL (8.5-10.1)
[2020-07-17 17:13] LABS: TOTAL PROTEIN 5.2 GM/DL (6.4-8.2)
[2020-07-17 17:14] LABS: CARBON DIOXIDE 26 MMOL/L (21-32)
[2020-07-17 17:15] LABS: BILIRUBIN,TOTAL 0.3 MG/DL (0.1-1.0)
[2020-07-17 17:16] LABS: ALKALINE PHOSPHATASE 152 U/L (40-136)
[2020-07-17 17:17] LABS: CREATININE SERUM 0.75 MG/DL (0.60-1.30); GFR ESTIMATED > 60
[2020-07-17 17:18] LABS: BUN/CREATININE RATIO 29
[2020-07-17 17:19] LABS: ALANINE AMINOTRANSFERASE 18 U/L (0-55)
[2020-07-17 17:39] LABS: GLUCOSE 515 MG/DL (70-105)
--- NOTE | 2020-07-17 18:03 | Diagnostic Imaging Report ---
EXAMINATION: Chest, 1 view. HISTORY: Pneumonia. COMPARISON: Chest radiograph 07/14/2020. FINDINGS: Heart size and pulmonary vasculature are stable. Stable patchy airspace opacities within the left mid and lower lung. Stable small bilateral pleural effusions. No pneumothorax. A right-sided portacatheter is unchanged. The osseous structures are intact. IMPRESSION: Stable left mid and lower lung airspace opacities with small bilateral pleural effusions. Dictated by: Dictated on workstation # [id number]
[2020-07-17] MEDS: MEROPENEM 500 MG in WATER (STERILE) FOR INJECTION 10 ML IV SCH (18:24)
[2020-07-17] MEDS: LOPERAMIDE 2 MG (IMODIUM) TABLET PO PRN (18:24)
[2020-07-17] MEDS: NS IV 1000 ML 1,000 ML IV SCH (18:24)
[2020-07-17] MEDS: dilTIAZem DRIP PRE-MIX 125 ML IV SCH (18:27)
[2020-07-17] MEDS ORDERED: inSUlin ASPART (NovoLOG) 1 UNIT/0.01 ML (CHARGE PER UNIT) ONE (19:10)
[2020-07-17] MEDS ORDERED: inSUlin ASPART (NovoLOG) 1 UNIT/0.01 ML (CHARGE PER UNIT) SC ONE (19:15)
[2020-07-17 20:00] VITALS: BP 133/81
[2020-07-17] MEDS: SENNA W/DOCUSATE (SENOKOT S) TABLET PO SCH (20:42)
[2020-07-17] MEDS ORDERED: ENOXAPARIN 100 MG/1 ML (LOVENOX) SYR SC SCH (21:00)
[2020-07-17] MEDS ORDERED: RT-ALBUTEROL/IPRATROPIUM 3 ML (DUONEB) VIAL INH PRN (21:15)
[2020-07-18] VITALS (9 sets, daily range): BP systolic 113–162; BP diastolic 52–93
[2020-07-18] MEDS: MEROPENEM 500 MG in WATER (STERILE) FOR INJECTION 10 ML IV SCH ×5 (01:13→22:35)
[2020-07-18] MEDS ORDERED: VANCOMYCIN 750 MG/VIAL IV ONE ×2 (03:25→03:26)
[2020-07-18] MEDS ORDERED: NS (IVPB) 250 ML ONE ×2 (03:25)
[2020-07-18 03:37] LABS: BASOPHILS % (AUTO) 0 % (0-10); EOSINOPHILS # (AUTO) 0.1 10^3/uL (0.0-0.3); EOSINOPHILS % (AUTO) 1 % (0-10); HEMATOCRIT 27 % (40-54); HEMOGLOBIN 8.1 g/dL (13.3-17.7); LYMPHOCYTES # (AUTO) 0.7 10^3/uL (1.0-4.0); LYMPHOCYTES % (AUTO) 5 % (12-44); MEAN CORPUSCULAR HEMOGLOBIN 28 pg (25-34); MEAN CORPUSCULAR HGB CONC 30 g/dL (32-36); MEAN CORPUSCULAR VOLUME 91 fL (80-99); MEAN PLATELET VOLUME 12.5 fL (9.0-12.2); MONOCYTES # (AUTO) 1.3 10^3/uL (0.0-1.0); MONOCYTES % (AUTO) 9 % (0-12); NEUTROPHILS # (AUTO) 12.6 10^3/uL (1.8-7.8); NEUTROPHILS % (AUTO) 85 % (42-75); PLATELET COUNT 295 10^3/uL (130-400); WHITE BLOOD COUNT 14.8 10^3/uL (4.3-11.0)
[2020-07-18] MEDS: VANCOMYCIN INJECTION 1,500 MG in NS IV 500 ML 500 ML IV SCH ×3 (03:39→22:35)
[2020-07-18 04:16] LABS: ALBUMIN 2.1 GM/DL (3.2-4.5); CHLORIDE 105 MMOL/L (98-107); POTASSIUM 3.3 MMOL/L (3.6-5.0); SODIUM 140 MMOL/L (135-145)
[2020-07-18 04:17] LABS: CALCIUM 7.5 MG/DL (8.5-10.1)
[2020-07-18 04:18] LABS: GLUCOSE 96 MG/DL (70-105)
[2020-07-18 04:19] LABS: TOTAL PROTEIN 5.1 GM/DL (6.4-8.2)
[2020-07-18 04:20] LABS: BILIRUBIN,TOTAL 0.4 MG/DL (0.1-1.0); CARBON DIOXIDE 25 MMOL/L (21-32)
[2020-07-18 04:22] LABS: ALKALINE PHOSPHATASE 158 U/L (40-136); CREATININE SERUM 0.54 MG/DL (0.60-1.30); GFR ESTIMATED > 60
[2020-07-18 04:23] LABS: BUN/CREATININE RATIO 35
[2020-07-18 04:25] LABS: ALANINE AMINOTRANSFERASE 19 U/L (0-55)
[2020-07-18] MEDS: NS IV 1000 ML 1,000 ML IV SCH ×2 (04:38→13:10)
[2020-07-18] MEDS ORDERED: MAGNESIUM 1 GM/100 ML IVPB 100 ML IV ONE (06:45)
[2020-07-18] MEDS: POTASSIUM CL 10MEQ/50ML IVPB 50 ML IV SCH ×4 (07:00→09:45)
--- NOTE | 2020-07-18 07:23 | Consultation-Cardiology ---
HPI-Cardiology Cardiology Consultation Date of Consultation 07/18/20 Date of Admission Time Seen by Provider: 07:17 Indication: paroxysmal atrial fibrillation HPI 75 years old gentleman with extensive history as described below. Has been having increasing dysuria and cough with shortness of breath. Started to have palpitation, seen in the emergency room and reported to be in atrial fibrillation. Patient was started on Cardizem drip and transferred to our facility. On arrival he was in sinus rhythm, he was feeling better. Still complaining of generalized fatigue and loss of energy. No chest pain was reported. Receiving antibiotics. Home Medications & Allergies Allergies: Coded Allergies: No Known Drug Allergies (Unverified , 11/11/19) Home Medication List Reviewed: Yes SGE-Kaiqeq-Sncsrm Hx Patient Social History 2nd Hand Smoke Exposure: No Recent Foreign Travel: No Recent Infectious Disease Expo: No Recent Hopitalizations: No Immunizations Up To Date Tetanus Booster (TDap): Unknown Date of Pneumonia Vaccine: Jun 08, 2013 Date of Influenza Vaccine: Jun 13, 2020 Past Medical History Discussed below Family Medical History Significant Family History: No Pertinent Family Hx Family Medical Hx Noncontributory Family History: Patient reports no known family medical history. Review of Systems-General Review of Systems Constitutional: see HPI, weakness EENTM: see HPI, no symptoms reported Respiratory: see HPI, cough, dyspnea on exertion; No hemoptysis, No orthopnea, No phlegm, No short of breath, No stridor, No wheezing, No other Cardiovascular: see HPI; No chest pain, No edema, No Hx of Intervention; palpitations; No syncope, No vascular heart diseas, No other Gastrointestinal: no symptoms reported, see HPI Genitourinary: see HPI, dysuria Musculoskeletal: see HPI, back pain Skin: no symptoms reported, see HPI Psychiatric/Neurological: No Symptoms Reported, See HPI Reviewed Test Results Reviewed Test Results Lab Laboratory Tests Test 07/17/20 16:51 07/18/20 03:14 Range/Units White Blood Count 10.6 14.8 H 4.3-11.0 10^3/uL Red Blood Count 2.79 L 2.95 L 4.30-5.52 10^6/uL Hemoglobin 7.7 L 8.1 L 13.3-17.7 g/dL Hematocrit 25 L 27 L 40-54 % Mean Corpuscular Volume 89 91 80-99 fL Mean Corpuscular Hemoglobin 28 28 25-34 pg Mean Corpuscular Hemoglobin Concent 31 L 30 L 32-36 g/dL Red Cell Distribution Width 21.5 H 22.5 H 10.0-14.5 % Platelet Count 169 295 130-400 10^3/uL Mean Platelet Volume 12.0 12.5 H 9.0-12.2 fL Immature Granulocyte % (Auto) 1 1 % Neutrophils (%) (Auto) 88 H 85 H 42-75 % Lymphocytes (%) (Auto) 3 L 5 L 12-44 % Monocytes (%) (Auto) 8 9 0-12 % Eosinophils (%) (Auto) 0 1 0-10 % Basophils (%) (Auto) 0 0 0-10 % Neutrophils # (Auto) 9.3 H 12.6 H 1.8-7.8 10^3/uL Lymphocytes # (Auto) 0.4 L 0.7 L 1.0-4.0 10^3/uL Monocytes # (Auto) 0.8 1.3 H 0.0-1.0 10^3/uL Eosinophils # (Auto) 0.0 0.1 0.0-0.3 10^3/uL Basophils # (Auto) 0.0 0.0 0.0-0.1 10^3/uL Immature Granulocyte # (Auto) 0.2 H 0.2 H 0.0-0.1 10^3/uL Sodium Level 132 L 140 135-145 MMOL/L Potassium Level 3.7 3.3 L 3.6-5.0 MMOL/L Chloride Level 98 105 98-107 MMOL/L Carbon Dioxide Level 26 25 21-32 MMOL/L Anion Gap 8 10 5-14 MMOL/L Blood Urea Nitrogen 22 H 19 H 7-18 MG/DL Creatinine 0.75 0.54 L 0.60-1.30 MG/DL Estimat Glomerular Filtration Rate > 60 > 60 BUN/Creatinine Ratio 29 35 Glucose Level 515 *H 96 70-105 MG/DL Calcium Level 7.5 L 7.5 L 8.5-10.1 MG/DL Corrected Calcium 8.9 9.0 8.5-10.1 MG/DL Total Bilirubin 0.3 0.4 0.1-1.0 MG/DL Aspartate Amino Transf (AST/SGOT) 23 26 5-34 U/L Alanine Aminotransferase (ALT/SGPT) 18 19 0-55 U/L Alkaline Phosphatase 152 H 158 H 40-136 U/L Total Protein 5.2 L 5.1 L 6.4-8.2 GM/DL Albumin 2.2 L 2.1 L 3.2-4.5 GM/DL Magnesium Level 2.2 1.6-2.4 MG/DL Physical Exam Physical Exam Vital Signs Vital Signs - First Documented 07/17/20 07/17/20 07/17/20 18:30 19:00 21:00 Temp 36.2 Pulse 104 Pulse Ox 93 O2 Delivery Nasal Cannula O2 Flow Rate 1.00 FiO2 24 Capillary Refill : Height, Weight, BMI Height: 6'2.00" Weight: 201lbs. 5.0oz. 91.002173zx; 38.78 BMI Method:Stated General Appearance: No Apparent Distress, WD/WN Eyes: Bilateral Eye Normal Inspection, Bilateral Eye PERRL, Bilateral Eye EOMI HEENT: PERRL/EOMI, TMs Normal, Normal ENT Inspection, Pharynx Normal, Moist Mucous Membranes Neck: Full Range of Motion, Normal Inspection, Non Tender, Supple, Carotid Bruit Respiratory: Chest Non Tender, Normal Breath Sounds, No Accessory Muscle Use, No Respiratory Distress Cardiovascular: Regular Rate, Rhythm, No Edema, No Gallop, No JVD, No Murmur, Normal Peripheral Pulses Gastrointestinal: Normal Bowel Sounds, No Organomegaly, No Pulsatile Mass, Non Tender, Soft Back: Normal Inspection, No CVA Tenderness, No Vertebral Tenderness Extremity: Normal Capillary Refill, Normal Inspection, Normal Range of Motion, Non Tender, No Calf Tenderness, No Pedal Edema Neurologic/Psychiatric: Alert, Oriented x3, No Motor/Sensory Deficits, Normal Mood/Affect Skin: Normal Color, Warm/Dry Lymphatic: No Adenopathy A/P-Cardiology Admission Diagnosis Pneumonia UTI Hypertension Hyperlipidemia Assessment/Plan Pulmonary infiltrates/pneumonia, started on antibiotic, managed by primary care physician Urinary tract infection, dysuria, receiving antibiotics. Has a Rosales catheter. Paroxysmal atrial fibrillation, Review of the EKG from [facility] showed atrial fibrillation with borderline tachycardia. Currently back to sinus rhythm, has returned to sinus rhythm on arrival to the hospital in [place] Continue to monitor on telemetry Moderate aortic valve stenosis, echocardiogram done in August 2019 showing peak gradient 57 mmHg mean gradient 30 mmHg valve area 1.2 cm with moderate severe aortic regurgitation. Normal LV size and function with EF 50-55 percent. I will repeat 2-D echo History of sigmoid colon resection, had adhesion managed in August 2019. 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 History of TIA. Has been on aspirin and Plavix. Clinical Quality Measures DVT/VTE Risk/Contraindication: Risk Factor Score Per Nursin RFS Level Per Nursing on Admit: 4+=Very High LENARD HUDSON MD Jul 18, 2020 07:23
--- NOTE | 2020-07-18 07:25 | History & Physical-Hospitalist ---
History of Present Illness HPI/Chief Complaint CC: New onset AF w/RVR with PNA, UTI and CHF with moderate aortic stenosis HPI: This is a very complicated 75yoWM who I transferred [place] [facility] [place] admitted after COVID overflow status from [facility] ER for UTI placed on Vanc and Cefepime after ECHO done in ER which revealed aortic stenosis and did well after admission but required 1 unit of blood for hgb 7.2 but became more complicated due to wheezing and evidence of CHF with elevated wbc of 21 and increased PCT prompting changing Cefepime to Meropenem and maintaining Vanc but then had new onset AF w/RVR requiring cardizem drip and transfer to cardiology care at [facility]. Today he was dx with C diff colitis and placed on Vanc PO QID and Questran TID. 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 Patient denies pain and he is now in NSR. Source: patient, RN/MD Exam Limitations: no limitations Date Seen 07/18/20 Time Seen by a Provider: 10:00 Attending Physician Virginia Sharma Jay L MD Referring Physician Date of Admission Jul 17, 2020 at 16:40 Home Medications & Allergies Home Medications Reviewed patient Home Medication Reconciliation performed by pharmacy medication reconciliations television production technician and/or nursing. Patients Allergies have been reviewed. Allergies Allergies Coded Allergies No Known Drug Allergies (Unverified11/11/19) Past Xtubgho-Lmnbgd-Igrkpx Hx Past Med/Social Hx: Reviewed Nursing Past Med/Soc Hx, Reviewed and Corrections made Patient Social History Marrital Status: single Employed/Student: retired Smoking Status: Former Smoker 2nd Hand Smoke Exposure: No Recent Foreign Travel: No Contact w/other who traveled: No Recent Hopitalizations: No Recent Infectious Disease Expo: No Immunizations Up To Date Tetanus Booster (TDap): Unknown Date of Pneumonia Vaccine: Jun 08, 2013 Date of Influenza Vaccine: Jun 13, 2020 Seasonal Allergies Seasonal Allergies: No Past Medical History Surgeries: Amputation, Orthopedic, Prostatectomy Respiratory: Pneumonia Cardiac: Heart Murmur, High Cholesterol, Hypertension aortic stenosis Neurological: Neuropathy, TIA Sexually Transmitted Disease: No HIV/AIDS: No Genitourinary: Benign Prostatic Hyperpl, Bladder Infection, Neurogenic Bladder Musculoskeletal: Amputee Endocrine: Diabetes, Insulin dep Cancer: Colon Did You Recieve Any Treatments: Yes What Type of Treatment Did You: Chemotherapy, Surgical Intervention History of Blood Disorders: No Adverse Reaction to Blood Maki: No (HAS HAD BLOOD WITH NO REACTION) Family History Patient reports no known family medical history. No Pertinent Family Hx Review of Systems Constitutional: see HPI, malaise, weakness Respiratory: short of breath Gastrointestinal: diarrhea Physical Exam Physical Exam Vital Signs Vital Signs - First Documented 07/17/20 07/17/20 07/17/20 07/17/20 18:30 19:00 20:00 21:00 Temp 36.8 Pulse 104 Resp 18 B/P (MAP) 133/81 (98) Pulse Ox 93 O2 Delivery Nasal Cannula O2 Flow Rate 1.00 FiO2 24 Capillary Refill : Height, Weight, BMI Height: 6'2.00" Weight: 201lbs. 5.0oz. 91.314948uz; 38.78 BMI Method:Stated General Appearance: No Apparent Distress, Chronically ill Eyes: Right Eye Normal Inspection, Right Eye PERRL HEENT: PERRL/EOMI, Normal ENT Inspection, Pharynx Normal, Moist Mucous Membranes Neck: Full Range of Motion, Normal Inspection, Non Tender Respiratory: Chest Non Tender, No Accessory Muscle Use, No Respiratory Distress, Decreased Breath Sounds, Wheezing Cardiovascular: Regular Rate, Rhythm, No Edema, No Gallop, No JVD, No Murmur, Normal Peripheral Pulses Gastrointestinal: Normal Bowel Sounds, No Organomegaly, No Pulsatile Mass, Non Tender, Soft Back: Normal Inspection, No CVA Tenderness, No Vertebral Tenderness Extremity: Normal Capillary Refill, Normal Inspection, Normal Range of Motion, Non Tender, No Calf Tenderness, No Pedal Edema, Other (b/l BKA) Neurologic/Psychiatric: Alert, Oriented x3, No Motor/Sensory Deficits, Normal Mood/Affect Skin: Normal Color, Warm/Dry Lymphatic: No Adenopathy Results Results/Procedures Labs Laboratory Tests 07/17/20 16:51 07/18/20 03:14 Patient resulted labs reviewed. Assessment/Plan Admission Diagnosis Assessment: New onset AF w/RVR requiring transfer to [facility] Cardiology care yesterday from [facility] HAP PNA Hypoxia CHF C diff colitis Anemia s/p 1 unit of blood at [facility] COVID-19 06/22/20 UTI Proteus In-dwelling catheter placed by Dr Gray after multiple attempts Plan: IV abx Vanc PO QID with [facility]ran [facility] Supportive care Monitor closely Admission Status: Inpatient Order (span 2 midnights) Reason for Inpatient Admission: af w/rvr with PNA Diagnosis/Problems Diagnosis/Problems (1) Atrial fibrillation with rapid ventricular response (2) Urinary tract infection associated with catheterization of urinary tract Status: Acute (3) Hypoglycemia associated with diabetes Status: Acute (4) Urinary obstruction Status: Acute (5) Colon cancer Status: Chronic (6) Diabetes mellitus Status: Chronic (7) Hypertension Status: Chronic (8) History of TIA (transient ischemic attack) Status: Chronic (9) Hyperlipidemia Status: Chronic (10) LLL pneumonia Status: Acute (11) Cardiac murmur Clinical Quality Measures DVT/VTE Risk/Contraindication: Risk Factor Score Per Nursin RFS Level Per Nursing on Admit: 4+=Very High VIRGINIA SHARMA DO Jul 18, 2020 07:25
[2020-07-18] MEDS: SENNA W/DOCUSATE (SENOKOT S) TABLET PO SCH ×2 (09:00→22:05)
[2020-07-18] MEDS: dilTIAZem DRIP PRE-MIX 125 ML IV SCH (12:57)
[2020-07-18] MEDS ORDERED: CHOLESTYRAMINE 4 GM (QUESTRAN LITE, PREVALITE) PKT PO NR (13:00)
[2020-07-18] MEDS: VANCOMYCIN 125 MG CAPSULE PO SCH ×4 (13:06→22:35)
[2020-07-18] MEDS: ENOXAPARIN 100 MG/1 ML (LOVENOX) SYR SC SCH (13:10)
[2020-07-18] MEDS: inSUlin ASPART (NovoLOG) 1 UNIT/0.01 ML (CHARGE PER UNIT) SC SCH (16:55)
[2020-07-19] VITALS (10 sets, daily range): BP systolic 102–141; BP diastolic 46–83
[2020-07-19] MEDS: ENOXAPARIN 100 MG/1 ML (LOVENOX) SYR SC SCH ×2 (01:46→12:33)
[2020-07-19 02:52] LABS: BASOPHILS % (AUTO) 0 % (0-10); EOSINOPHILS # (AUTO) 0.6 10^3/uL (0.0-0.3); EOSINOPHILS % (AUTO) 4 % (0-10); HEMATOCRIT 30 % (40-54); HEMOGLOBIN 8.8 g/dL (13.3-17.7); LYMPHOCYTES # (AUTO) 0.6 10^3/uL (1.0-4.0); LYMPHOCYTES % (AUTO) 4 % (12-44); MEAN CORPUSCULAR HEMOGLOBIN 27 pg (25-34); MEAN CORPUSCULAR HGB CONC 29 g/dL (32-36); MEAN CORPUSCULAR VOLUME 91 fL (80-99); MEAN PLATELET VOLUME 11.8 fL (9.0-12.2); MONOCYTES % (AUTO) 7 % (0-12); NEUTROPHILS # (AUTO) 12.7 10^3/uL (1.8-7.8); NEUTROPHILS % (AUTO) 85 % (42-75); PLATELET COUNT 243 10^3/uL (130-400)
[2020-07-19 03:12] LABS: ALBUMIN 2.1 GM/DL (3.2-4.5); CHLORIDE 101 MMOL/L (98-107); POTASSIUM 3.1 MMOL/L (3.6-5.0); SODIUM 138 MMOL/L (135-145)
[2020-07-19 03:14] LABS: GLUCOSE 87 MG/DL (70-105); TOTAL PROTEIN 4.9 GM/DL (6.4-8.2)
[2020-07-19 03:16] LABS: BILIRUBIN,TOTAL 0.4 MG/DL (0.1-1.0); CARBON DIOXIDE 28 MMOL/L (21-32)
[2020-07-19 03:18] LABS: ALKALINE PHOSPHATASE 147 U/L (40-136); CREATININE SERUM 0.49 MG/DL (0.60-1.30); GFR ESTIMATED > 60
[2020-07-19 03:19] LABS: BUN/CREATININE RATIO 20
[2020-07-19 03:21] LABS: ALANINE AMINOTRANSFERASE 18 U/L (0-55)
[2020-07-19] MEDS ORDERED: KCL 20 MEQ TAB (K-DUR) PO ONE (06:45)
[2020-07-19] MEDS: SENNA W/DOCUSATE (SENOKOT S) TABLET PO SCH ×2 (07:19→21:01)
[2020-07-19] MEDS: POTASSIUM CL 10MEQ/50ML IVPB 50 ML IV SCH ×2 (08:59→10:35)
[2020-07-19] MEDS: VANCOMYCIN 125 MG CAPSULE PO SCH ×4 (09:00→22:30)
--- NOTE | 2020-07-19 09:57 | Cardiology Progress Note ---
Subjective Date Seen by Provider: Jul 19, 2020 Time Seen by Provider: 09:45 Subjective/Events-last exam Patient is laying down in bed, having mild shortness of breath. No chest pain Review of Systems General: No Chills, No Night Sweats; Fatigue; No Malaise, No Appetite, No Other HEENT: No Head Aches, No Visual Changes, No Eye Pain, No Ear Pain, No Dysphasia, No Sinus Congestion, No Post Nasal Drip, No Sore Throat, No Other Pulmonary: Dyspnea; No Cough, No Pleuritic Chest Pain, No Other Cardiovascular: No: Chest Pain, Palpitations, Orthopnea, Paroxysmal Noc. Dyspnea, Edema, Lt Headedness, Other Objective-Cardiology Exam Last Set of Vital Signs Vital Signs 07/17/20 07/18/20 07/18/20 07/19/20 07/19/20 07/19/20 07/19/20 21:00 19:47 22:00 04:00 06:41 08:23 09:43 Temp 36.8 Pulse 106 Resp 20 B/P (MAP) 122/66 (84) Pulse Ox 94 O2 Delivery Nasal Cannula O2 Flow Rate 2.00 FiO2 24 Capillary Refill : Less Than 3 Seconds I&O Intake and Output 07/19/20 00:00 Intake Total 3613 ml Output Total 2625 ml Balance 988 ml Intake Oral 1768 ml IV Total 1845 ml Output Urine Total 2625 ml # Bowel Movements 13 Daily Weight Change Unsure General: Alert, Oriented X3, Cooperative HEENT: Atraumatic, PERRLA Neck: Supple, No JVD, No Thyromegaly Lungs: Normal Air Movement, Other (bilateral rhonchi) Heart: Normal S1, Normal S2, Other (atrial fibrillation, systolic murmur at the left sternal border) Abdomen: Normal Bowel Sounds, Soft, No Tenderness, No Hepatosplenomegaly, No Ma sses Extremities: No Clubbing, No Cyanosis, No Edema, Normal Pulses, No Tender ness/Swelling Skin: No Rashes, No Breakdown, No Significant Lesion Neuro: Normal Gait, Normal Speech, Strength at 5/5 X4 Ext, Normal Tone, Sensation Intact Psych/Mental Status: Mental Status NL, Mood NL Results Lab Laboratory Tests 07/19/20 02:45 A/P-Cardiology Admission Diagnosis Pneumonia UTI Hypertension Hyperlipidemia Assessment/Plan Pulmonary infiltrates/pneumonia, started on antibiotic, managed by primary care physician Urinary tract infection, dysuria, receiving antibiotics. Has a Rosales catheter. Paroxysmal atrial fibrillation, was back to sinus rhythm, currently tachycardic. I will place him back on Cardizem orally and monitor tolerance and response Moderate aortic valve stenosis, echocardiogram done in August 2019 showing peak gradient 57 mmHg mean gradient 30 mmHg valve area 1.2 cm with moderate severe aortic regurgitation. Normal LV size and function with EF 50-55 percent. I will repeat 2-D echo History of sigmoid colon resection, had adhesion managed in August 2019. Hypertension, restart Toprol and Cardizem and monitor blood pressure tolerance and response Hyperlipidemia, monitor lipids Bilateral BKA secondary to fracture and nonhealing wound Diabetes mellitus, poorly controlled. History of TIA. Has been on aspirin and Plavix. Clinical Quality Measures DVT/VTE Risk/Contraindication: Risk Factor Score Per Nursin RFS Level Per Nursing on Admit: 4+=Very High LENARD HUDSON MD Jul 19, 2020 09:57
[2020-07-19] MEDS ORDERED: dilTIAZem120 MG (CARDIZEM CD) CAP PO ONE (10:22)
[2020-07-19] MEDS ORDERED: RT-ALBUTEROL/IPRATROPIUM 3 ML (DUONEB) VIAL INH ONE (10:30)
[2020-07-19] MEDS ORDERED: CHOLESTYRAMINE 4 GM (QUESTRAN LITE, PREVALITE) PKT PO ONE (10:30)
[2020-07-19] MEDS: dilTIAZem120 MG (CARDIZEM CD) CAP PO SCH (10:34)
--- NOTE | 2020-07-19 11:25 | Physical Therapy Evaluation ---
PT Evaluation-General Medical Diagnosis Admission Date Jul 17, 2020 at 16:40 Medical Diagnosis: A-fib Onset Date: Jul 17, 2020 Therapy Diagnosis Therapy Diagnosis: debility/weakness Height/Weight Height (Feet): 6 Height (Inches): 2.00 Weight (Pounds): 201 Weight (Ounces): 5.0 Precautions Precautions/Isolations: Contact Isolation, Fall Prevention Referral Physician: Edith Reason for Referral: Evaluation/Treatment Medical History Pertinent Medical History: DM, Heart Failure, HTN, Neuropathy Additional Medical History colon cancer with resection/bilateral BKA Current History transfer from [facility] Reviewed History: Yes Social History Home: Single Level Current Living Status: Other Family Entry Into Home: Ramp Prior Prior Level of Function SCALE: Activities may be completed with or without assistive devices. 7-Bzbqxwxpco-bcnstvo completes the activity by him/herself with no assistance from a helper. 5-Set-up or Clean-up Assistance-helper sets up or cleans up; patient completes activity. Beatty assists only prior to or following the activity. 4-Supervision or Touching Assistance-helper provides verbal cues and/or to uching/steadying and/or contact guard assistance as patient completes activity. Assistance may be provided throughout the activity or intermittently. 3-Partial/Moderate Assistance-helper does LESS THAN HALF the effort. Beatty lifts, holds or supports trunk or limbs, but provides less than half the effort. 2-Substantial/Maximal Assistance-helper does MORE THAN HALF the effort. Beatty lifts or holds trunk or limbs and provides more than half the effort. 8-Lvgidjphh-jpbowt does ALL the effort. Patient does none of the effort to complete the activity. Or, the assistance of 2 or more helpers is required for the patient to complete the activity. If activity was not attempted, code reason: 7-Patient Refused. 9-Not Applicable-not attempted and the patient did not perform the activity before the current illness, exacerbation or injury. 10-Not Attempted due to Environmental Limitations-(lack of equipment, weather restraints, etc.). 88-Not Attempted due to Medical Conditions or Safety Concerns. Bed Mobility: 6 Transfers (B,C,W/C): 6 Gait: 6 Indoor Mobility (Ambulation): Independent Prior Devices Use: Other-see list below Prior Device Use: cane PT Evaluation-Current Subjective Patient reports his LE's are too swollen to use his prosthesis. Agrees to don rn spine/support to decrease edema. Objective Patient Orientation: Normal For Age Attachments: Oxygen, Rosales Catheter, IV ROM/Strength ROM Lower Extremities bilateral LE WFL Strength Lower Extremities 4-/5 grossly bilateral LE Integumentary/Posture Integumentary refer to nursing notes Bowel Incontinence: Yes Bladder Incontinence: Rosales Cath Posture WFL Neuromuscular (Tone, Coordination, Reflexes) grossly intact Sensory Vision: Functional Hearing: Functional Sensation Right Lower Extremit: Impaired Sensation Left Lower Extremity: Impaired Transfers Sit to Lying (QC): 6 Lying to Sitting/Side of Bed(Q: 6 Gait Does the Patient Walk?: No and Walking Goal IS indicated Balance Sitting Static: Normal Sitting Dynamic: Normal Assessment/Needs 75 y.o. male will benefit from skilled PT to address functional strength and mobility to improve current LOF to safely return to home with family at maximum LOF. Rehab Potential: Fair PT Shelter Goals Shelter Goals PT Shelter Goals Time Frame: Jul 31, 2020 Roll Left & Right (QC): 6 Sit to Lying (QC): 6 Lying-Sitting on Side/Bed(QC): 6 Sit to Stand (QC): 6 Chair/Phy-sl-Njmsz Xfer(QC): 6 Toilet Transfer (QC): 6 Car Transfer (QC): 6 Does the Patient Walk: Yes Walk 10 feet (QC): 6 Walk 50ft with 2 Turns (QC): 6 Walk 150 ft (QC): 6 PT Plan Problem List Problem List: Activity Tolerance Treatment/Plan Treatment Plan: Continue Plan of Care Treatment Plan: Education, Functional Activity E[place], Functional Strength, Gait, Safety, Therapeutic Exercise, Transfers Treatment Duration: Jul 31, 2020 Frequency: 6 times per week Estimated Hrs Per Day: .5 hour per day Patient and/or Family Agrees t: Yes Time/GCodes Time In: 1045 Time Out: 1106 Total Billed Treatment Time: 21 Total Billed Treatment 1 visit EVModC 21 min RENETTA COTA PT Jul 19, 2020 11:25
[2020-07-19] MEDS ORDERED: FUROSEMIDE 40 MG/4 ML INJ (LASIX) IVP ONE (11:30)
--- NOTE | 2020-07-19 11:50 | NUR ---
PT TRANSFERRED TO ROOM 410 VIA BED ACCOMPANIED BY THIS RN. PT PERSONAL BELONGINGS SENT WITH PT TO NEW ROOM. REPORT GIVEN TO AMANDA FOR CONTINUING CARE.
--- NOTE | 2020-07-19 11:50 | NUR ---
REPORT RECEIVED FROM AMNA ZARATE. ASSUMED CARE OF THE PATIENT AT THIS TIME. PATIENT DENIES ANY NEEDS AT THIS TIME. WILL CONTINUE TO MONITOR.
--- NOTE | 2020-07-19 12:49 | NUR ---
PATIENT 97% ON ROOM AIR AT THIS TIME. WILL RECHECK SPO2 AND CONTINUE TO MONITOR.
[2020-07-19] MEDS ORDERED: CHOLESTYRAMINE 4 GM (QUESTRAN LITE, PREVALITE) PKT PO SCH (13:00)
[2020-07-19] MEDS ORDERED: BETHANECHOL CHLORIDE PO (13:33)
[2020-07-19] MEDS ORDERED: LEVO500T80 PO (13:34)
--- NOTE | 2020-07-19 13:37 | NUR ---
SPOKE WITH THE PT (CALLED HIS ROOM PHONE, WENT THRU THE EXT MED HISTORY AND CALLED [facility] TO COMPLETE THE MED REC PT WAS ABLE TO NAME ALL HIS MEDICATIONS WELL WHEN/HOW HE TAKES EACH BETHANECHOL: PRIOR TO JUNE 2020 PT HAD BEEN TAKING 25MG QID (LAST FILLED 06-17-2020 #120/30DS) HOWEVER ON 07-12-2020 THE DOSE WAS CHANGED AND PT IS NOW TAKING 50MG QID
--- NOTE | 2020-07-19 13:40 | NUR ---
PATIENT COMPLAINING OF DULL CONSTANT CHEST PAIN RATED AT A 5. VITALS TAKEN, DR HUDSON NOTIFIED. NEW ORDERS RECEIVED.
[2020-07-19] MEDS ORDERED: meTOprolol 5 MG/5 ML (LOPRESSOR) VIAL ONE (13:45)
[2020-07-19] MEDS ORDERED: meTOprolol 5 MG/5 ML (LOPRESSOR) VIAL IV NR (13:45)
--- NOTE | 2020-07-19 13:59 | NUR ---
PATIENT IN A FLUTTER-DR HUDSON NOTIFIED Addendum: 07/19/20 at 1525 by AMANDA HAYES RN TRANSFER PATIENT BACK UPSTAIRS
--- NOTE | 2020-07-19 14:18 | NUR ---
MVA REACTOR OPERATOR HEAD CALLED-PATIENT BACK IN [place]. DOES DR HUDSON STILL WANT HIM MOVED? DR HUDSON CALLED. PATIENT STILL COMPLAINING OF CHEST PAIN OF 5 DULL CONSTANT. PHARMACY HAS NOT SENT NITRO YET (PHARMACY CALLED AT 1358 AND ASKED TO SEND NITRO TO 4TH FLOOR BECAUSE PATIENT HAD BEEN MOVED TO ROOM 410). IV LOPRESSOR GIVEN. DR HUDSON WANTS TO KNOW WHY PATIENT IS NOT ALREADY UPSTAIRS. THIS RN WAS TOLD THAT THEY HAD TO CLEAN A ROOM AND WOULD LET ME KNOW WHEN IT WAS DONE. HE DOES NOT FIND THAT ACCEPTABLE. THE PATIENT COULD HAVE GONE BACK TO HIS OLD ROOM, [address] HUDSON WANTS A PICTURE OF THE EKG. (WHICH IF HE IS IN A-FLUTTER - HE WOULD NOT GO BACK AND FORTH TO [place] ON THE TELEMETRY).......
[2020-07-19] MEDS: NITROGLYCERIN 0.4 MG SL TABS BTL 25'S SL PRN ×2 (14:33→15:42)
--- NOTE | 2020-07-19 14:45 | Occ Therapy Progress Note ---
Therapy Progress Note OT order received, chart reviewed. Pt. is currently being sent up to ICU due to A-fib. Will hold OT at this time. Will need new therapy orders due to change in medical status. 1428 Hold at this time. JERICHO HEATH OT Jul 19, 2020 14:44
--- NOTE | 2020-07-19 14:45 | NUR ---
PATIENT TRANSPORTED BY BED TO ICU 10. REPORT GIVEN TO BICYCLE TECHNICIAN VANDANA.
--- NOTE | 2020-07-19 15:03 | NUR ---
PT arrived to ICU room 10 at this time. Pt awake and alert. No distress noted. Will continue to monitor.
--- NOTE | 2020-07-19 15:05 | Progress Note - Hospitalist ---
[place] CM MED STUDENT 07/19/20 1505: Subjective HPI/CC On Admission Date Seen by Provider: Jul 19, 2020 Time Seen by Provider: 09:30 CC: New onset AF w/RVR with PNA, UTI and CHF with moderate aortic stenosis HPI: This is a very complicated 75yoWM who I [place] [facility] [place] after COVID overflow status from [facility] ER for UTI placed on Vanc and Cefepime after ECHO done in ER which revealed aortic stenosis and did well after admission but required 1 unit of blood for hgb 7.2 but became more complicated due to wheezing and evidence of CHF with elevated wbc of 21 and increased PCT prompting changing Cefepime to Meropenem and maintaining Vanc but then had new onset AF w/RVR requiring cardizem drip and transfer to cardiology care at [facility]. Today he was dx with C diff colitis and placed on Vanc PO QID and Questran TID. Patient appears to be very chronically ill given bilateral BKA's in the past uses prosthesis and colon cancer s/p resection 10/2019 and undergoing chemotherapy by [facility]. Patient denies pain and he is now in NSR. Subjective/Events-last exam Warren is a 75yo male that is a complex patient. He has new onset AF w/ RVR with PNA, UTI, CHF, aortic stenosis, and C Diff. His WBC are at 15 and HgB increased from 7.7 to 8.8. His BP today was 122/66 and currently on nasal cannula at 1L. He is on contact precaution. He was stopped on the other antibiotics to allow the C DIff treatment to take full effect. He stated that the number of bowel movements have decreased and has been coughing up mucus. More nebulizer treatments were ordered. Focused Exam Skin: normal color Objective Exam Vital Signs Vital Signs Date Time Temp Pulse Resp B/P (MAP) Pulse Ox O2 Delivery O2 Flow Rate FiO2 07/19/20 09:43 Nasal Cannula 2.00 07/19/20 08:23 36.8 07/19/20 08:00 96 07/19/20 08:00 100 20 141/83 (102) 07/17/20 21:00 24 Capillary Refill : Less Than 3 Seconds HEENT: PERRL/EOMI, TMs Normal, Normal ENT Inspection, Pharynx Normal Gastrointestinal: Other (C Diff colitis) Results/Procedures Lab Laboratory Tests 07/19/20 02:45 Patient resulted labs reviewed. Assessment/Plan Assessment and Plan Assess & Plan/Chief Complaint Assessment: C. Diff AF w/ RVR with PNA UTI CHF aortic stenosis C Diff. Plan: antibiotics nebulizer treatments Time spent with patient (mins): 15 Clinical Quality Measures DVT/VTE Risk/Contraindication: Risk Factor Score Per Nursin RFS Level Per Nursing on Admit: 4+=Very High Supervisory-Addendum Brief Verification & Attestation Participated in pt care: history Personally performed: history Care discussed with: Medical Student YAAKOV SMITH DO 07/20/20 0549: Subjective Subjective/Events-last exam Pt doing okay A little bit wheezy so will heplock IV fluid Dr. Li will initiate Lasix if he feels like that is necessary Nebulizer treatments will be ordered IS will be used Tolerating Vancomycin QID Questran TID will be scheduled PT and OT rehab eval Transferring to fourth floor since he is stable Review of Systems General: Fatigue, Malaise Gastrointestinal: Diarrhea Neurological: Weakness Objective Exam General Appearance: No Apparent Distress, WD/WN, Chronically ill Cardiovascular: Regular Rate, Rhythm, No Edema, No Gallop, No JVD, No Murmur, Normal Peripheral Pulses Gastrointestinal: Normal Bowel Sounds, No Organomegaly, No Pulsatile Mass, Non Tender, Soft Neurologic/Psychiatric: Alert, Oriented x3, No Motor/Sensory Deficits, Normal Mood/Affect Assessment/Plan Assessment and Plan Assess & Plan/Chief Complaint C diff treatment Move to 4th floor Supervisory-Addendum Brief Verification & Attestation Participated in pt care: history, MDM, physical Personally performed: exam, history, MDM, supervision of care Care discussed with: Medical Student Procedures: n/a Results interpretation: Verified all documentation Verification and Attestation of Medical Student E/M Service A medical student performed and documented this service in my presence. I reviewed and verified all information documented by the medical student and made modifications to such information, when appropriate. I personally performed the physical exam and medical decision making. Yaakov Smith, Jul 20, 2020,05:49 [place] CM MED STUDENT Jul 19, 2020 15:05 YAAKOV SMITH DO Jul 20, 2020 05:49
[2020-07-19] MEDS: RT-ALBUTEROL/IPRATROPIUM 3 ML (DUONEB) VIAL INH SCH ×2 (16:03→18:30)
[2020-07-19] MEDS: CHOLESTYRAMINE 4 GM (QUESTRAN LITE, PREVALITE) PKT PO SCH (22:00)
[2020-07-20] VITALS (10 sets, daily range): BP systolic 121–146; BP diastolic 73–102
[2020-07-20] MEDS: ENOXAPARIN 100 MG/1 ML (LOVENOX) SYR SC SCH (01:48)
[2020-07-20 03:23] LABS: BASOPHILS % (AUTO) 0 % (0-10); EOSINOPHILS # (AUTO) 0.2 10^3/uL (0.0-0.3); EOSINOPHILS % (AUTO) 1 % (0-10); HEMATOCRIT 27 % (40-54); HEMOGLOBIN 8.3 g/dL (13.3-17.7); LYMPHOCYTES # (AUTO) 0.5 10^3/uL (1.0-4.0); LYMPHOCYTES % (AUTO) 4 % (12-44); MEAN CORPUSCULAR HEMOGLOBIN 28 pg (25-34); MEAN CORPUSCULAR HGB CONC 31 g/dL (32-36); MEAN CORPUSCULAR VOLUME 90 fL (80-99); MEAN PLATELET VOLUME 11.4 fL (9.0-12.2); MONOCYTES # (AUTO) 0.8 10^3/uL (0.0-1.0); MONOCYTES % (AUTO) 6 % (0-12); NEUTROPHILS # (AUTO) 11.2 10^3/uL (1.8-7.8); NEUTROPHILS % (AUTO) 88 % (42-75); PLATELET COUNT 185 10^3/uL (130-400); WHITE BLOOD COUNT 12.8 10^3/uL (4.3-11.0)
[2020-07-20 03:36] LABS: ALBUMIN 2.1 GM/DL (3.2-4.5); CHLORIDE 99 MMOL/L (98-107); POTASSIUM 3.6 MMOL/L (3.6-5.0); SODIUM 136 MMOL/L (135-145)
[2020-07-20 03:38] LABS: GLUCOSE 284 MG/DL (70-105)
[2020-07-20 03:39] LABS: TOTAL PROTEIN 4.8 GM/DL (6.4-8.2)
[2020-07-20 03:40] LABS: BILIRUBIN,TOTAL 0.5 MG/DL (0.1-1.0); CARBON DIOXIDE 31 MMOL/L (21-32)
[2020-07-20 03:42] LABS: ALKALINE PHOSPHATASE 142 U/L (40-136); CREATININE SERUM 0.61 MG/DL (0.60-1.30); GFR ESTIMATED > 60
[2020-07-20 03:43] LABS: BUN/CREATININE RATIO 18
[2020-07-20 03:45] LABS: ALANINE AMINOTRANSFERASE 17 U/L (0-55)
[2020-07-20 06:00] LABS: MAGNESIUM 1.9 MG/DL (1.6-2.4)
[2020-07-20] MEDS ORDERED: MAGNESIUM 1 GM/100 ML IVPB 100 ML IV SCH (06:00)
[2020-07-20] MEDS ORDERED: KCL 20 MEQ TAB (K-DUR) PO SCH (06:00)
[2020-07-20] MEDS ORDERED: POTASSIUM CL 10MEQ/50ML IVPB 50 ML IV SCH (06:00)
[2020-07-20] MEDS: CHOLESTYRAMINE 4 GM (QUESTRAN LITE, PREVALITE) PKT PO SCH ×3 (06:03→21:20)
[2020-07-20] MEDS ORDERED: KCL 20 MEQ TAB (K-DUR) PO ONE (08:00)
[2020-07-20] MEDS: RT-ALBUTEROL/IPRATROPIUM 3 ML (DUONEB) VIAL INH SCH ×2 (08:01→15:01)
--- NOTE | 2020-07-20 08:04 | Physical Therapy Progress Note ---
Therapy Progress Note Patient transferred to ICU due to A-fib. PT will require new orders to resume therapy. RN/physician will be notified. RENETTA COTA PT Jul 20, 2020 08:04
[2020-07-20] MEDS: SENNA W/DOCUSATE (SENOKOT S) TABLET PO SCH ×2 (09:34→20:16)
[2020-07-20] MEDS: dilTIAZem120 MG (CARDIZEM CD) CAP PO SCH (09:34)
[2020-07-20] MEDS: VANCOMYCIN 125 MG CAPSULE PO SCH ×4 (09:34→20:15)
--- NOTE | 2020-07-20 10:08 | NUR ---
IRF Evaluation Patient transferred to ICU. Will continue to follow patient's progress as it relates to ongoing evaluation for admission to the ARU. Thank you for this referral.
--- NOTE | 2020-07-20 11:14 | Progress Note - Hospitalist ---
[place] CM MED STUDENT 07/20/20 1114: Subjective HPI/CC On Admission Date Seen by Provider: Jul 20, 2020 Time Seen by Provider: 10:00 CC: New onset AF w/RVR with PNA, UTI and CHF with moderate aortic stenosis HPI: This is a very complicated 75yoWM who [place] [facility] [place] COVID overflow status from [facility] ER for UTI placed on Vanc and Cefepime after ECHO done in ER which revealed aortic stenosis and did well after admission but required 1 unit of blood for hgb 7.2 but became more complicated due to wheezing and evidence of CHF with elevated wbc of 21 and increased PCT prompting changing Cefepime to Meropenem and maintaining Vanc but then had new onset AF w/RVR requiring cardizem drip and transfer to cardiology care at [facility]. Today he was dx with C diff colitis and placed on Vanc PO QID and Questran TID. Patient appears to be very chronically ill given bilateral BKA's in the past uses prosthesis and colon cancer s/p resection 10/2019 and undergoing chemotherapy by [facility]. Patient denies pain and he is now in NSR. Subjective/Events-last exam Warren is a 75yo male that is a complex patient. He has new onset AF w/ RVR with PNA, UTI, CHF, aortic stenosis, and C Diff. As of 07/19 his WBC are at 15 and HgB increased from 7.7 to 8.8, BP was 122/66, and on nasal cannula at 1L. He is on contact precaution. He was stopped on the other antibiotics to allow the C DIff treatment to take full effect. He stated that the number of bowel movements have decreased and has been coughing up mucus. More nebulizer treatments were ordered. As of today his BP was 134/102 and a WBC of 12.8. He was moved up to the ICU after experiencing chest pain yesterday evening. It was diagnosed as sinus tach and hasn't experienced any chest pain since. He has felt tired but h as ate well with good BM and urinary function. After overnight evaluation he is set to be moved back to 4th floor. His coughing was less frequent today. Focused Exam Time of Focused Exam: 10:00 Skin: normal color Objective Exam Vital Signs Vital Signs Date Time Temp Pulse Resp B/P (MAP) Pulse Ox O2 Delivery O2 Flow Rate FiO2 07/20/20 08:02 96 Nasal Cannula 2.00 07/20/20 07:58 36.2 07/20/20 06:00 96 18 134/102 (113) 07/17/20 21:00 24 Capillary Refill : Less Than 3 Seconds General Appearance: No Apparent Distress, WD/WN HEENT: PERRL/EOMI, TMs Normal Neck: Full Range of Motion Skin: Normal Color, Warm/Dry Results/Procedures Lab Laboratory Tests 07/20/20 03:12 Patient resulted labs reviewed. Assessment/Plan Assessment and Plan Assess & Plan/Chief Complaint Assessment: C. Diff AF w/ RVR with PNA UTI CHF aortic stenosis sinus tach- resolved Plan: antibiotics nebulizer treatments monitor rythme strip Time spent with patient (mins): 10 Diagnosis/Problems Diagnosis/Problems (1) C. difficile colitis (2) Atrial fibrillation with rapid ventricular response Clinical Quality Measures DVT/VTE Risk/Contraindication: Risk Factor Score Per Nursin RFS Level Per Nursing on Admit: 4+=Very High Supervisory-Addendum Brief Verification & Attestation Participated in pt care: history Personally performed: history Care discussed with: Medical Student YAAKOV SMITH DO 07/21/20 0533: Subjective Subjective/Events-last exam Pt required transfer up to the ICU yesterday due to tachycardia Moving down to the 4th floor again today Receiving Questran TID and stools are much improved Vancomycin QID is improving his c-diff colitis Hgb stable at 8.3 and WC is 12.8 Overall doing much better Review of Systems General: Fatigue, Malaise Pulmonary: Dyspnea Gastrointestinal: Diarrhea Objective Exam General Appearance: No Apparent Distress, WD/WN Respiratory: Chest Non Tender, Lungs Clear, Normal Breath Sounds, No Accessory Muscle Use, No Respiratory Distress Cardiovascular: Regular Rate, Rhythm, No Edema, No Gallop, No JVD, No Murmur, N ormal Peripheral Pulses Neurologic/Psychiatric: Alert, Oriented x3, No Motor/Sensory Deficits, Normal Mood/Affect Assessment/Plan Assessment and Plan Assess & Plan/Chief Complaint Transfer to [facility] Monitor diarrhea Supervisory-Addendum Brief Verification & Attestation Participated in pt care: history, MDM, physical Personally performed: exam, history, MDM, supervision of care Care discussed with: Medical Student Procedures: n/a Results interpretation: Verified all documentation Verification and Attestation of Medical Student E/M Service A medical student performed and documented this service in my presence. I reviewed and verified all information documented by the medical student and made modifications to such information, when appropriate. I personally performed the physical exam and medical decision making. Yaakov Smith, Jul 21, 2020,05:32 [place] CM MED STUDENT Jul 20, 2020 11:14 YAAKOV SMITH DO Jul 21, 2020 05:33
--- NOTE | 2020-07-20 11:32 | Progress Note - Cardiology ---
Cardiology SOAP Progress Note Subjective: Lying in bed. States he feels ok this morning. No c/o CP, palpitations today. Objective: I&O/Vital Signs 07/21/20 07/21/20 07/21/20 07/21/20 00:56 01:00 04:52 07:00 Temp 36.4 36.2 Pulse 90 90 91 Resp 22 24 B/P (MAP) 118/70 (86) 130/68 (88) Pulse Ox 93 94 94 O2 Delivery Nasal Cannula Nasal Cannula Nasal Cannula O2 Flow Rate 1.00 1.00 2.00 07/21/20 07/21/20 07/21/20 07/21/20 08:55 09:50 09:54 11:04 Temp 36.7 36.4 Pulse 90 80 89 Resp 18 18 B/P (MAP) 118/59 (78) 91/54 (66) 107/48 (67) Pulse Ox 92 92 93 O2 Delivery Nasal Cannula Nasal Cannula Nasal Cannula O2 Flow Rate 1.00 1.00 1.00 07/21/20 00:00 Intake Total 100 ml Output Total 300 ml Balance -200 ml Weight (Pounds): 201 Weight (Ounces): 5.0 Weight (Calculated Kilograms): [id number] Constitutional: AAO x 3, well-developed, well-nourished Respiratory: No accessory muscle use, No respiratory distress; chest expansion is symmetric, chest is bilaterally symmetric, other (good air entry) Cardiovascular: regular rate-rhythm; No JVD; tachycardia, systolic murmur (2- 3/6) Gastrointestional: No tender; soft, round, audible bowel sounds Extremities: other (bilat BKA) Neurologic/Psychiatric: grossly intact (moves all extremities) Skin: normal color; No rash on exposed areas, No ulcerations on exposed areas Results/Procedures: Labs Laboratory Tests 07/20/20 15:36: Glucometer 232H 07/20/20 20:35: Glucometer 233H 07/21/20 03:07: White Blood Count 17.2H, Red Blood Count 2.94L, Hemoglobin 8.0L, Hematocrit 27L, Mean Corpuscular Volume 90, Mean Corpuscular Hemoglobin 27, Mean Corpuscular H emoglobin Concent 30L, Red Cell Distribution Width 22.0H, Platelet Count 194, Mean Platelet Volume 12.2, Immature Granulocyte % (Auto) 1, Neutrophils (%) (Auto) 90H, Lymphocytes (%) (Auto) 4L, Monocytes (%) (Auto) 4, Eosinophils (%) (Auto) 2, Basophils (%) (Auto) 0, Neutrophils # (Auto) 15.5H, Lymphocytes # (Auto) 0.7L, Monocytes # (Auto) 0.6, Eosinophils # (Auto) 0.3, Basophils # (Auto) 0.0, Immature Granulocyte # (Auto) 0.2H, Neutrophils % (Manual) 90, Lymphocytes % (Manual) 3, Monocytes % (Manual) 2, Eosinophils % (Manual) 2, Band Neutrophils 3, Blood Morphology Comment NORMAL, Sodium Level 136, Potassium Level 3.5L, Chloride Level 99, Carbon Dioxide Level 30, Anion Gap 7, Blood Urea Nitrogen 13, Creatinine 0.52L, Estimat Glomerular Filtration Rate > 60, BUN/Creatinine Ratio 25, Glucose Level 108H, Calcium Level 7.2L, Corrected Calcium 8.7, Total Bilirubin 0.4, Aspartate Amino Transf (AST/SGOT) 14, Alanine Aminotransferase (ALT/SGPT) 16, Alkaline Phosphatase 118, Total Protein 4.8L, Albumin 2.1L 07/21/20 11:11: Glucometer 299H Microbiology 07/17/20 C. difficile GDH Antigen & Toxins - Final, Complete A/P: Assessment: Pneumonia - management per pulmonary services UTI - management per medical services C-diff (+) Paroxysmal atrial fibrillation (first diagnosed on tele of 07-19-2020) - currently SR Echocardiogram of Jul 14, 2020 showed LVEF 55-65%. Mod to severe aortic stenosis. Peak gradient 55mHg, mean gradient 41 mmHg, valve area 1.0 cm2. PASP 40-45mmHg History of sigmoid colon resection, had adhesion managed in August 2019. 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 History of TIA in 2003 at [facility] Plan: New onset a-fib - currently SR-ST - increase Cardizem CD Reported h/o TIA in the past - advise starting OAC with Eliquis Anemia of undetermined etiology - management per medical services Pneumonia - management per pulmonary services UTI - management per medical services Monitor electrolytes and replace as indicated We have reviewed Dr. Li's progress notes BAINEIDA ALFORD Jul 20, 2020 11:32
[2020-07-20] MEDS: inSUlin ASPART (NovoLOG) 1 UNIT/0.01 ML (CHARGE PER UNIT) SC SCH ×3 (11:34→21:20)
[2020-07-20] MEDS ORDERED: dilTIAZem120 MG (CARDIZEM CD) CAP PO NR (11:55)
--- NOTE | 2020-07-20 12:11 | Physical Therapy Daily Note ---
PT Daily Note-Current Subjective Patient agrees to PT. Mental Status Patient Orientation: Normal For Age Attachments: Oxygen, Rosales Catheter Transfers SCALE: Activities may be completed with or without assistive devices. 8-Mbyspsfsse-hezhryn completes the activity by him/herself with no assistance from a helper. 5-Set-up or Clean-up Assistance-helper sets up or cleans up; patient completes activity. [place] assists only prior to or following the activity. 4-Supervision or Touching Assistance-helper provides verbal cues and/or touching/steadying and/or contact guard assistance as patient completes activity. Assistance may be provided throughout the activity or intermittently. 3-Partial/Moderate Assistance-helper does LESS THAN HALF the effort. [place] l ifts, holds or supports trunk or limbs, but provides less than half the effort. 2-Substantial/Maximal Assistance-helper does MORE THAN HALF the effort. [place] lifts or holds trunk or limbs and provides more than half the effort. 7-Auavtorqd-oczpeq does ALL the effort. Patient does none of the effort to complete the activity. Or, the assistance of 2 or more helpers is required for t he patient to complete the activity. If activity was not attempted, code reason: 7-Patient Refused. 9-Not Applicable-not attempted and the patient did not perform the activity before the current illness, exacerbation or injury. 10-Not Attempted due to Environmental Limitations-(lack of equipment, weather restraints, etc.). 88-Not Attempted due to Medical Conditions or Safety Concerns. Roll Left & Right (QC): 6 Sit to Lying (QC): 6 Lying to Sitting/Side of Bed(Q: 6 Sit to Stand (QC): 7 Chair/Isj-su-Wydiy Xfer(QC): 7 patient sat EOB independently with leaning exercises and bilateral LE exercises. Gait Training Does the Patient Walk?: No and Walking Goal IS indicated Exercises Supine Ex: Quad Set, Heel Slides, Straight leg raise, Hip abd/add Supine Reps: 12 Seated Therapy Exercises: Long arc quads Seated Reps: 15 Assessment Patient tolerated treatment well and returned to supine independently. PT instructed patient and RN to sit EOB for lunch to work on core strength. PT Motor Vehicles Supervisor Goals Motor Vehicles Supervisor Goals PT Nursing Home Goals Time Frame: Jul 31, 2020 Roll Left & Right (QC): 6 Sit to Lying (QC): 6 Lying-Sitting on Side/Bed(QC): 6 Sit to Stand (QC): 6 Chair/Jbr-dw-Zbbtt Xfer(QC): 6 Toilet Transfer (QC): 6 Car Transfer (QC): 6 Does the Patient Walk: Yes Walk 10 feet (QC): 6 Walk 50ft with 2 Turns (QC): 6 Walk 150 ft (QC): 6 PT Plan Treatment/Plan Treatment Plan: Continue Plan of Care Treatment Plan: Education, Functional Activity [place], Functional Strength, Gait, Safety, Therapeutic Exercise, Transfers Treatment Duration: Jul 31, 2020 Frequency: 6 times per week Estimated Hrs Per Day: .5 hour per day Patient and/or Family Agrees t: Yes Time/GCodes Time In: 1136 Time Out: 1145 Total Billed Treatment Time: 9 Total Billed Treatment 1 visit ReEval 9 min RENETTA COTA PT Jul 20, 2020 12:11
--- NOTE | 2020-07-20 12:30 | NUR ---
PATIENT TRANSFERRED TO ROOM 416, REP0RT FROM [facility]
--- NOTE | 2020-07-20 14:31 | Progress Note - Cardiology ---
Cardiology SOAP Progress Note Subjective: Gen malaise and weakness Shortness of breath with activity No cp No leg swelling No syncope Objective: I&O/Vital Signs 07/20/20 07/20/20 07/20/20 07/20/20 03:00 04:00 05:00 06:00 Pulse 98 98 97 96 Resp 22 9 30 18 B/P (MAP) 138/96 (110) 137/81 (99) 146/83 (104) 134/102 (113) Pulse Ox 93 100 100 98 O2 Delivery Room Air Room Air Room Air Room Air 07/20/20 07/20/20 07/20/20 07:58 08:02 09:00 Temp 36.2 Pulse Ox 96 96 O2 Delivery Nasal Cannula Nasal Cannula O2 Flow Rate 2.00 1.00 07/20/20 00:00 Intake Total 1040 ml Output Total 1125 ml Balance -85 ml Weight (Pounds): 201 Weight (Ounces): 5.0 Weight (Calculated Kilograms): 91.854641 Constitutional: AAO x 3, well-developed, well-nourished Respiratory: No accessory muscle use, No respiratory distress; chest expansion is symmetric, chest is bilaterally symmetric, other (good air entry) Cardiovascular: regular rate-rhythm; No JVD; tachycardia, systolic murmur (2- 3/6) Gastrointestional: No tender; soft, round, audible bowel sounds Extremities: other (bilat BKA) Neurologic/Psychiatric: grossly intact (moves all extremities) Skin: normal color; No rash on exposed areas, No ulcerations on exposed areas Results/Procedures: Labs Laboratory Tests 07/20/20 03:12: White Blood Count 12.8H, Red Blood Count 3.02L, Hemoglobin 8.3L, Hematocrit 27L, Mean Corpuscular Volume 90, Mean Corpuscular Hemoglobin 28, Mean Corpuscular Hemoglobin Concent 31L, Red Cell Distribution Width 21.8H, Platelet Count 185, Mean Platelet Volume 11.4, Immature Granulocyte % (Auto) 1, Neutrophils (%) (Auto) 88H, Lymphocytes (%) (Auto) 4L, Monocytes (%) (Auto) 6, Eosinophils (%) (Auto) 1, Basophils (%) (Auto) 0, Neutrophils # (Auto) 11.2H, Lymphocytes # (Auto) 0.5L, Monocytes # (Auto) 0.8, Eosinophils # (Auto) 0.2, Basophils # (Auto) 0.0, Immature Granulocyte # (Auto) 0.1, Sodium Level 136, Potassium Level 3.6, Chloride Level 99, Carbon Dioxide Level 31, Anion Gap 6, Blood Urea Nitrogen 11, Creatinine 0.61, Estimat Glomerular Filtration Rate > 60, BUN/Creatinine Ratio 18, Glucose Level 284H, Calcium Level 7.0L, Corrected Calcium 8.5, Phosphorus Level 2.0L, Magnesium Level 1.9, Total Bilirubin 0.5, Aspartate Amino Transf (AST/SGOT) 15, Alanine Aminotransferase (ALT/SGPT) 17, Alkaline Phosphatase 142H, Total Protein 4.8L, Albumin 2.1L 07/20/20 11:00: Glucometer 283H Microbiology 07/17/20 C. difficile GDH Antigen & Toxins - Final, Complete A/P: Assessment: Pneumonia - management per Pulmonary services UTI - management per Medical services C-diff (+) Anemia of undetermined etiology, managed by the Medical service Paroxysmal atrial fibrillation (first diagnosed on tele of 07-19-2020) - currently SR Echocardiogram of Jul 14, 2020 showed LVEF 55-65%. Mod to severe aortic stenosis. Peak gradient 55mHg, mean gradient 41 mmHg, valve area 1.0 cm2. PASP 40-45mmHg History of sigmoid colon resection, had adhesion managed in August 2019. 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 History of TIA in 2004 at [facility]. Currently on apixaban stroke prophylaxis Plan: Complex management due to multiple comorbidities (see above) New onset a-fib - currently SR-ST - increase Cardizem CD Reported h/o TIA in the past - OAC with Eliquis Anemia of undetermined etiology - management per medical services Pneumonia - management per pulmonary services UTI - management per medical services Monitor electrolytes and replace as indicated We have reviewed Dr. Li's progress notes CHANDNI KIRAN MD FACP [facility] Jul 20, 2020 14:31
[2020-07-20] MEDS: BETHANECHOL 25 MG (URECHOLINE) TAB PO SCH ×2 (17:07→20:14)
[2020-07-20] MEDS: SIMvastatin 20 MG (ZOCOR) TAB PO SCH (20:14)
[2020-07-20] MEDS: APIXABAN 5 MG (ELIQUIS) TABLET PO SCH (20:14)
[2020-07-20] MEDS: MELATONIN 3 MG TABLET PO PRN (20:29)
[2020-07-21] VITALS (7 sets, daily range): BP systolic 91–130; BP diastolic 48–70
[2020-07-21 03:26] LABS: BASOPHILS % (AUTO) 0 % (0-10); EOSINOPHILS # (AUTO) 0.3 10^3/uL (0.0-0.3); EOSINOPHILS % (AUTO) 2 % (0-10); HEMATOCRIT 27 % (40-54); LYMPHOCYTES # (AUTO) 0.7 10^3/uL (1.0-4.0); LYMPHOCYTES % (AUTO) 4 % (12-44); MEAN CORPUSCULAR HEMOGLOBIN 27 pg (25-34); MEAN CORPUSCULAR HGB CONC 30 g/dL (32-36); MEAN CORPUSCULAR VOLUME 90 fL (80-99); MEAN PLATELET VOLUME 12.2 fL (9.0-12.2); MONOCYTES # (AUTO) 0.6 10^3/uL (0.0-1.0); MONOCYTES % (AUTO) 4 % (0-12); NEUTROPHILS # (AUTO) 15.5 10^3/uL (1.8-7.8); NEUTROPHILS % (AUTO) 90 % (42-75); PLATELET COUNT 194 10^3/uL (130-400); WHITE BLOOD COUNT 17.2 10^3/uL (4.3-11.0)
[2020-07-21 03:37] LABS: ALBUMIN 2.1 GM/DL (3.2-4.5); CHLORIDE 99 MMOL/L (98-107); POTASSIUM 3.5 MMOL/L (3.6-5.0); SODIUM 136 MMOL/L (135-145)
[2020-07-21 03:38] LABS: CALCIUM 7.2 MG/DL (8.5-10.1)
[2020-07-21 03:39] LABS: GLUCOSE 108 MG/DL (70-105)
[2020-07-21 03:40] LABS: TOTAL PROTEIN 4.8 GM/DL (6.4-8.2)
[2020-07-21 03:41] LABS: BILIRUBIN,TOTAL 0.4 MG/DL (0.1-1.0); CARBON DIOXIDE 30 MMOL/L (21-32)
[2020-07-21 03:43] LABS: ALKALINE PHOSPHATASE 118 U/L (40-136); CREATININE SERUM 0.52 MG/DL (0.60-1.30); GFR ESTIMATED > 60
[2020-07-21 03:44] LABS: BUN/CREATININE RATIO 25
[2020-07-21 03:46] LABS: ALANINE AMINOTRANSFERASE 16 U/L (0-55)
[2020-07-21 04:01] LABS: BAND NEUTROPHILS 3 %; EOSINOPHILS % (MANUAL) 2 %; LYMPHOCYTES % (MANUAL) 3 %; MONOCYTES % (MANUAL) 2 %; NEUTROPHILS % (MANUAL) 90 %; RBC MORPH NORMAL
[2020-07-21] MEDS: inSUlin ASPART (NovoLOG) 1 UNIT/0.01 ML (CHARGE PER UNIT) SC SCH ×4 (05:16→21:39)
[2020-07-21] MEDS: CHOLESTYRAMINE 4 GM (QUESTRAN LITE, PREVALITE) PKT PO SCH ×3 (05:36→21:39)
[2020-07-21] MEDS: BETHANECHOL 25 MG (URECHOLINE) TAB PO SCH ×4 (05:37→20:37)
[2020-07-21] MEDS: RT-ALBUTEROL/IPRATROPIUM 3 ML (DUONEB) VIAL INH SCH ×3 (07:00→19:50)
[2020-07-21] MEDS: VANCOMYCIN 125 MG CAPSULE PO SCH ×4 (09:08→20:37)
[2020-07-21] MEDS: APIXABAN 5 MG (ELIQUIS) TABLET PO SCH ×2 (09:08→20:37)
[2020-07-21] MEDS: CLOPIDOGREL 75 MG (PLAVIX) TABLET PO SCH (09:08)
[2020-07-21] MEDS: SENNA W/DOCUSATE (SENOKOT S) TABLET PO SCH ×2 (09:08→20:37)
--- NOTE | 2020-07-21 09:13 | Progress Note - Urology ---
Progress Note-Urology Progress Notes/Assess & Plan Progress/Assessment & Plan KEEP CODY IN FOR NOW Final Diagnosis RETENTION HONG DUKES MD Jul 21, 2020 09:13
--- NOTE | 2020-07-21 11:38 | Progress Note - Cardiology ---
Cardiology SOAP Progress Note Subjective: Sitting up in recliner at the bedside. No c/o palpitations, CP or dyspnea. Objective: I&O/Vital Signs 07/22/20 07/22/20 07/22/20 07/22/20 00:00 01:00 04:00 06:36 Temp 36.4 36.4 Pulse 95 97 99 106 Resp 20 20 B/P (MAP) 106/58 (74) 120/64 (82) Pulse Ox 92 93 O2 Delivery Nasal Cannula Nasal Cannula O2 Flow Rate 1.00 1.00 07/22/20 00:00 Intake Total 1020 ml Output Total 575 ml Balance 445 ml Weight (Pounds): 201 Weight (Ounces): 5.0 Weight (Calculated Kilograms): 91.799271 Constitutional: AAO x 3, well-developed, well-nourished Respiratory: No accessory muscle use, No respiratory distress; chest expansion is symmetric, chest is bilaterally symmetric, other (good air entry) Cardiovascular: regular rate-rhythm; No JVD; tachycardia, systolic murmur (2- 3/6) Gastrointestional: No tender; soft, round, audible bowel sounds Extremities: other (bilat BKA) Neurologic/Psychiatric: grossly intact (moves all extremities) Skin: normal color; No rash on exposed areas, No ulcerations on exposed areas Results/Procedures: Labs Laboratory Tests 07/21/20 11:11: Glucometer 299H 07/21/20 15:38: Glucometer 306H 07/21/20 18:23: Urine Color YELLOW, Urine Clarity SL CLOUDY, Urine pH 6.0, Urine Specific [place] 1.025H, Urine Protein TRACEH, Urine Glucose (UA) 2+H, Urine Ketones NEGATIVE, Urine Nitrite NEGATIVE, Urine Bilirubin NEGATIVE, Urine Urobilinogen 0.2, Urine Leukocyte Esterase NEGATIVE, Urine RBC (Auto) TRACE-L, Urine RBC RARE, Urine WBC 0-2, Urine Squamous Epithelial Cells RARE, Urine Crystals NONE, Urine Bacteria NEGATIVE, Urine Casts NONE, Urine Mucus LARGEH, Urine Culture Indicated NO 07/21/20 21:15: Glucometer 258H 07/22/20 05:15: White Blood Count 18.4H, Red Blood Count 2.99L, Hemoglobin 8.1L, Hematocrit 27L, Mean Corpuscular Volume 90, Mean Corpuscular Hemoglobin 27, Mean Corpuscular Hemoglobin Concent 30L, Red Cell Distribution Width 21.9H, Platelet Count 199, Mean Platelet Volume 11.1, Immature Granulocyte % (Auto) 1, Neutrophils (%) (Auto) 90H, Lymphocytes (%) (Auto) 3L, Monocytes (%) (Auto) 4, Eosinophils (%) (Auto) 2, Basophils (%) (Auto) 0, Neutrophils # (Auto) 16.6H, Lymphocytes # (Auto) 0.5L, Monocytes # (Auto) 0.7, Eosinophils # (Auto) 0.4H, Basophils # (Auto) 0.0, Immature Granulocyte # (Auto) 0.2H, Neutrophils % (Manual) 96, Lymphocytes % (Manual) 2, Monocytes % (Manual) 1, Toxic Granulation 2+, Poly chromasia SLIGHT, Hypochromasia SLIGHT, Poikilocytosis MODERATE, Anisocytosis MODERATE, Microcytosis SLIGHT, Spherocytes SLIGHT, Elliptocytes SLIGHT, Schistocytes SLIGHT, Sodium Level 135, Potassium Level 4.0, Chloride Level 98, Carbon Dioxide Level 29, Anion Gap 8, Blood Urea Nitrogen 17, Creatinine 0.58L, Estimat Glomerular Filtration Rate > 60, BUN/Creatinine Ratio 29, Glucose Level 119H, Glucometer 128H, Calcium Level 7.3L, Corrected Calcium 8.8, Total Bilirubin 0.4, Aspartate Amino Transf (AST/SGOT) 17, Alanine Aminotransferase (ALT/SGPT) 16, Alkaline Phosphatase 114, Total Protein 4.9L, Albumin 2.1L Microbiology 07/17/20 C. difficile [facility] Antigen & Toxins - Final, Complete A/P: Assessment: Pneumonia - management per Pulmonary services UTI - management per Medical services C-diff (+) Anemia of undetermined etiology, managed by the Medical service Paroxysmal atrial fibrillation (first diagnosed on tele of 07-19-2020) - currently SR Echocardiogram of Jul 14, 2020 showed LVEF 55-65%. Mod to severe aortic stenosis. Peak gradient 55mHg, mean gradient 41 mmHg, valve area 1.0 cm2. PASP 40-45mmHg History of sigmoid colon resection, had adhesion managed in August 2019. 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 History of TIA in 2004 at [facility]. Currently on apixaban stroke prophylaxis Plan: Complex management due to multiple comorbidities (see above) New onset a-fib - currently SR with controlled rate Reported h/o TIA in the past - Continue OAC with Eliquis Anemia of undetermined etiology - management per medical services Pneumonia - management per pulmonary services UTI - management per medical services Monitor electrolytes and replace as indicated Somewhat hypotensive today, albeit asymptomatic with elevating leukocytosis, concern for developing sepsis - UA - management per medical services Reduce antihypertensives today NEIDA OLIVEIRA [facility] Jul 21, 2020 11:38
--- NOTE | 2020-07-21 12:44 | Progress Note - Hospitalist ---
[place] CM MED STUDENT 07/21/20 1244: Subjective HPI/CC On Admission Date Seen by Provider: Jul 21, 2020 Time Seen by Provider: 09:15 CC: New onset AF w/RVR with PNA, UTI and CHF with moderate aortic stenosis HPI: This is a very complicated 75yoWM who I transferred from [facility] [place] where he was admitted after COVID overflow status from [facility] ER for UTI placed on Vanc and Cefepime after ECHO done in ER which revealed aortic stenosis and did well after admission but required 1 unit of blood for hgb 7.2 but became more complicated due to wheezing and evidence of CHF with elevated wbc of 21 and increased PCT prompting changing Cefepime to Meropenem and maintaining Vanc but then had new onset AF w/RVR requiring cardizem drip and transfer to cardiology care at [facility]. Today he was dx with C diff colitis and placed on Vanc PO QID and Questran TID. 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 Patient denies pain and he is now in NSR. Subjective/Events-last exam Warren was sitting up in his chair watching TV today He was moved yesterday from the ICU to fourth floor He denied chest pain Neutrophils increased from 11.2 to 15.5 Stated that his stools were beginning to firm up BP dropped and was 91/54 when I was in the room Focused Exam Time of Focused Exam: 10:00 Respiratory: Chest Non Tender, Lungs Clear, Normal Breath Sounds, No Accessory Muscle Use, No Respiratory Distress Cardiovascular: Regular Rate, Rhythm, No Edema, No Gallop, No JVD, No Murmur, Normal Peripheral Pulses Skin: normal color Objective Exam Vital Signs Vital Signs Date Time Temp Pulse Resp B/P (MAP) Pulse Ox O2 Delivery O2 Flow Rate FiO2 07/21/20 11:04 36.4 89 18 107/48 (67) 93 Nasal Cannula 1.00 07/17/20 21:00 24 Capillary Refill : Less Than 3 Seconds General Appearance: No Apparent Distress, WD/WN HEENT: PERRL/EOMI Neck: Full Range of Motion Respiratory: Chest Non Tender, Lungs Clear, Normal Breath Sounds, No Accessory Muscle Use, No Respiratory Distress Cardiovascular: Regular Rate, Rhythm, No Edema, No Gallop, No JVD, No Murmur, Normal Peripheral Pulses Neurologic/Psychiatric: Alert, Oriented x3, No Motor/Sensory Deficits, Normal Mood/Affect Skin: Normal Color, Warm/Dry Results/Procedures Lab Laboratory Tests 07/21/20 03:07 Patient resulted labs reviewed. Assessment/Plan Assessment and Plan Assess & Plan/Chief Complaint Assessment: C. Diff AF w/ RVR with PNA UTI CHF aortic stenosis sinus tach- resolved Plan: 07/19:antibiotics nebulizer treatments monitor rhythme strip 07/21: monitor BP and the effect of medications continue PT Time spent with patient (mins): 10 Diagnosis/Problems Diagnosis/Problems (1) C. difficile colitis (2) Atrial fibrillation with rapid ventricular response Clinical Quality Measures DVT/VTE Risk/Contraindication: Risk Factor Score Per Nursin RFS Level Per Nursing on Admit: 4+=Very High Supervisory-Addendum Brief Verification & Attestation Participated in pt care: history Personally performed: history Care discussed with: Medical Student YAAKOV SMITH DO 07/21/203: Subjective Subjective/Events-last exam Pt doing a lot better today Moving around a little better Has B/L prosthesis use today Denies any significant pain issues Diarrhea is much more formed Trying to evaluate the next step in his plan and recovery Objective Exam General Appearance: No Apparent Distress, WD/WN, Chronically ill Respiratory: Lungs Clear Cardiovascular: Regular Rate, Rhythm Assessment/Plan Assessment and Plan Assess & Plan/Chief Complaint Improved IRF? Supervisory-Addendum Brief Verification & Attestation Participated in pt care: history, MDM, physical Personally performed: exam, history, MDM, supervision of care Care discussed with: Medical Student Procedures: n/a Results interpretation: Verified all documentation Verification and Attestation of Medical Student E/M Service A medical student performed and documented this service in my presence. I reviewed and verified all information documented by the medical student and made modifications to such information, when appropriate. I personally performed the physical exam and medical decision making. Yaakov Smith, Jul 21, 2020,21:03 [place] CM MED STUDENT Jul 21, 2020 12:44 YAAKOV SMITH DO Jul 21, 2020 21:03
--- NOTE | 2020-07-21 15:02 | Physical Therapy Daily Note ---
PT Daily Note-Current Subjective Pt. up in recliner with prosthesis on bilat. Pt. shares that he si so very weak compared to what he had been able to do previous to this. Agrees to Rx but c/o fatigue Pain Location: No Pain Reported Mental Status Patient Orientation: Normal For Age Attachments: Other-See Comments (prosth) Transfers SCALE: Activities may be completed with or without assistive devices. 1-Jewizlvint-kuudwzm completes the activity by him/herself with no assistance from a helper. 5-Set-up or Clean-up Assistance-helper sets up or cleans up; patient completes activity. [place] assists only prior to or following the activity. 4-Supervision or Touching Assistance-helper provides verbal cues and/or touc [place]/steadying and/or contact guard assistance as patient completes activity. Assistance may be provided throughout the activity or intermittently. 3-Partial/Moderate Assistance-helper does LESS THAN HALF the effort. [place] lifts, holds or supports trunk or limbs, but provides less than half the effort. 2-Substantial/Maximal Assistance-helper does MORE THAN HALF the effort. [place] lifts or holds trunk or limbs and provides more than half the effort. 3-Xxnhskorm-oonmyy does ALL the effort. Patient does none of the effort to complete the activity. Or, the assistance of 2 or more helpers is required for the patient to complete the activity. If activity was not attempted, code reason: 7-Patient Refused. 9-Not Applicable-not attempted and the patient did not perform the activity before the current illness, exacerbation or injury. 10-Not Attempted due to Environmental Limitations-(lack of equipment, weather restraints, etc.). 88-Not Attempted due to Medical Conditions or Safety Concerns. pt. attempted pushing self up in recliner fully reclined, using UEs to push on arms of chair. Pt. was successful with great effort Exercises Supine Ex: Bridging, Ankle pumps, Quad Set, Glut sets, Heel Slides, Short Arc Quads, Scooting, Straight leg raise, Hip abd/add Supine Reps: 10 (x2) Seated Therapy Exercises: Ankle pumps, Chair press-ups Seated Reps: 12 Assessment Current Status: Good Progress PT Steam Meter Reader Goals Steam Meter Reader Goals PT Steam Meter Reader Goals Time Frame: Jul 31, 2020 Roll Left & Right (QC): 6 Sit to Lying (QC): 6 Lying-Sitting on Side/Bed(QC): 6 Sit to Stand (QC): 6 Chair/Pzg-sw-Hkoxz Xfer(QC): 6 Toilet Transfer (QC): 6 Car Transfer (QC): 6 Does the Patient Walk: Yes Walk 10 feet (QC): 6 Walk 50ft with 2 Turns (QC): 6 Walk 150 ft (QC): 6 PT Plan Treatment/Plan Treatment Plan: Continue Plan of Care Treatment Plan: Education, Functional Activity [place], Functional Strength, Gait, Safety, Therapeutic Exercise, Transfers Treatment Duration: Jul 31, 2020 Frequency: 6 times per week Estimated Hrs Per Day: .5 hour per day Patient and/or Family Agrees t: Yes Safety Risks/Education Patient Education: Correct Positioning, Disease Process Teaching Recipient: Patient Teaching Methods: Demonstration, Discussion Response to Teaching: Verbalize Understanding, Return Demonstration, Reinforcement Needed Time/GCodes Time In: 1400 Time Out: 1420 Total Billed Treatment Time: 20 Total Billed Treatment 1,FA20m GEE ACUNA PTA Jul 21, 2020 15:02
--- NOTE | 2020-07-21 16:40 | Progress Note - Cardiology ---
Cardiology SOAP Progress Note Subjective: No cp or palp or syncope No shortness of breath at rest Gen malaise and weakness present No n/v/d Objective: I&O/Vital Signs 07/21/20 07/21/20 07/21/20 07/21/20 04:52 06:37 07:00 08:55 Temp 36.2 36.7 Pulse 91 89 90 Resp 24 18 B/P (MAP) 130/68 (88) 118/59 (78) Pulse Ox 94 94 92 O2 Delivery Nasal Cannula Nasal Cannula Nasal Cannula O2 Flow Rate 1.00 2.00 1.00 07/21/20 07/21/20 07/21/20 07/21/20 09:50 09:54 11:04 12:46 Temp 36.4 Pulse 80 89 89 Resp 18 B/P (MAP) 91/54 (66) 107/48 (67) Pulse Ox 92 93 O2 Delivery Nasal Cannula Nasal Cannula O2 Flow Rate 1.00 1.00 07/21/20 07/21/20 14:46 15:30 Temp 36.7 Pulse 110 Resp 24 B/P (MAP) 115/51 (72) Pulse Ox 93 93 O2 Delivery Nasal Cannula Nasal Cannula O2 Flow Rate 1.00 1.00 07/21/20 00:00 Intake Total 100 ml Output Total 300 ml Balance -200 ml Weight (Pounds): 201 Weight (Ounces): 5.0 Weight (Calculated Kilograms): 91.938060 Constitutional: AAO x 3, well-developed, well-nourished Respiratory: No accessory muscle use, No respiratory distress; chest expansion is symmetric, chest is bilaterally symmetric, other (good air entry) Cardiovascular: regular rate-rhythm; No JVD; tachycardia, systolic murmur (2- 3/6) Gastrointestional: No tender; soft, round, audible bowel sounds Extremities: other (bilat BKA) Neurologic/Psychiatric: grossly intact (moves all extremities) Skin: normal color Results/Procedures: Labs Laboratory Tests 07/20/20 20:35: Glucometer 233H 07/21/20 03:07: White Blood Count 17.2H, Red Blood Count 2.94L, Hemoglobin 8.0L, Hematocrit 27L, Mean Corpuscular Volume 90, Mean Corpuscular Hemoglobin 27, Mean Corpuscular Hemoglobin Concent 30L, Red Cell Distribution Width 22.0H, Platelet Count 194, Mean Platelet Volume 12.2, Immature Granulocyte % (Auto) 1, Neutrophils (%) (Auto) 90H, Lymphocytes (%) (Auto) 4L, Monocytes (%) (Auto) 4, Eosinophils (%) (Auto) 2, Basophils (%) (Auto) 0, Neutrophils # (Auto) 15.5H, Lymphocytes # (Auto) 0.7L, Monocytes # (Auto) 0.6, Eosinophils # (Auto) 0.3, Basophils # (Auto) 0.0, Immature Granulocyte # (Auto) 0.2H, Neutrophils % (Manual) 90, Lymphocytes % (Manual) 3, Monocytes % (Manual) 2, Eosinophils % (Manual) 2, Band Neutrophils 3, Blood Morphology Comment NORMAL, Sodium Level 136, Potassium Level 3.5L, Chloride Level 99, Carbon Dioxide Level 30, Anion Gap 7, Blood Urea Nitrogen 13, Creatinine 0.52L, Estimat Glomerular Filtration Rate > 60, BUN/Creatinine Ratio 25, Glucose Level 108H, Calcium Level 7.2L, Corrected Calcium 8.7, Total Bilirubin 0.4, Aspartate Amino Transf (AST/SGOT) 14, Alanine Aminotransferase (ALT/SGPT) 16, Alkaline Phosphatase 118, Total Protein 4.8L, Albumin 2.1L 07/21/20 05:14: Glucometer 136H 07/21/20 11:11: Glucometer 299H 07/21/20 15:38: Glucometer 306H Microbiology 07/17/20 C. difficile [facility] Antigen & Toxins - Final, Complete Laboratory Tests 07/20/20 03:12 07/21/20 03:07 A/P: Assessment: Pneumonia - management per Pulmonary services UTI - management per Medical services C-diff (+) Anemia of undetermined etiology, managed by the Medical service Paroxysmal atrial fibrillation (first diagnosed on tele of 07-19-2020) - currently SR Echocardiogram of Jul 14, 2020 showed LVEF 55-65%. Mod to severe aortic stenosis. Peak gradient 55mHg, mean gradient 41 mmHg, valve area 1.0 cm2. PASP 40-45mmHg History of sigmoid colon resection, had adhesion managed in August 2019. 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 History of TIA in 2003 at [facility]. Currently on apixaban stroke prophylaxis Plan: Complex management due to multiple comorbidities (see above) Continue OAC with Eliquis Anemia of undetermined etiology - management per Medical services Pneumonia - management per Pulmonary services UTI - management per Medical services Monitor electrolytes and replace as indicated Somewhat hypotensive today, albeit asymptomatic with elevating leukocytosis, concern for developing sepsis - UA - management per Medical services Reduce antihypertensives today CHANDNI KIRAN MD FACP FAC CCDS Jul 21, 2020 16:40
--- NOTE | 2020-07-21 16:53 | NUR ---
"RD ASSESSMENT PMHx: pneumonia; hypercholesterolemia; HTN; TIA; BPH; amputations (bilateral BKA); DM; CA(colon); COVID-19 PT INTERACTION: Pt was awake and pleasant during nutrition assessment. Pt states current appetite is good. Note avg PO intake 97% x3d, per chart review. Pt states following a low-CHO diet at home, and has some issues with chewing but not swallowing food. Pt attributes chewing issues with poor dentition. Pt states some recent issues with diarrhea. Note last BM was 07/19, and pt currently on bowel regimen of senna BID, per chart review. Pt states some recent wt gain, attributing it to fluid retention. Note recent 16# wt gain x6mon, per chart review. Pt states current DM management is pretty good. Note unable to determine recent HbA1c, per chart review. Note pt has bilateral BKA, per chart review. ABNORMAL NUTRITION-RELATED LAB VALUES LOW: K 3.5; cr 0.52; CA7.2; Pro 4.8; alb 2.1; HIGH: glu 108 Est. kcal needs: 3797-7877 kcal | 15-18 kcal/kg Est. Pro needs: 102-122 g Pro | 1.0-1.2 g Pro/kg PES STATEMENT: Given current PO intake, no nutrition diagnosis at this time (NO-1.1). INTERVENTION: Continue with current diet order of Regular diet. Would recommend switching to consistent CHO diet, as pt has hx of DM. Offered diet education on DM management, but pt declined at this time. Will attempt to offer prior to discharge. Will continue to follow and reassess as pt needs, intake, and status change. Shaneka Jimenes MS RD LD [phone] cell"
--- NOTE | 2020-07-21 17:31 | NUR ---
[place], [place] 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 He would consider Acute Rehab Unit if qualifies.
[2020-07-21 18:54] LABS: BILIRUBIN,URINE NEGATIVE (NEGATIVE); CLARITY,URINE SL CLOUDY; COLOR,URINE YELLOW; GLUCOSE, URINE (UA) 2+ (NEGATIVE); KETONES,URINE NEGATIVE (NEGATIVE); LEUKOCYTE ESTERASE ,URINE NEGATIVE (NEGATIVE); NITRITE,URINE NEGATIVE (NEGATIVE); PROTEIN,URINE TRACE (NEGATIVE)
[2020-07-21 19:03] LABS: BACTERIA,URINE NEGATIVE /HPF; RBC,URINE RARE /HPF; SQUAMOUS EPITHELIAL CELL,UR RARE /HPF; WBC,URINE 0-2 /HPF
[2020-07-21] MEDS: SIMvastatin 20 MG (ZOCOR) TAB PO SCH (20:37)
[2020-07-21] MEDS: MELATONIN 3 MG TABLET PO PRN (20:42)
[2020-07-22] VITALS: BP 106/58
[2020-07-22 04:00] VITALS: BP 120/64
[2020-07-22 05:32] LABS: BASOPHILS % (AUTO) 0 % (0-10); EOSINOPHILS # (AUTO) 0.4 10^3/uL (0.0-0.3); EOSINOPHILS % (AUTO) 2 % (0-10); HEMATOCRIT 27 % (40-54); HEMOGLOBIN 8.1 g/dL (13.3-17.7); LYMPHOCYTES # (AUTO) 0.5 10^3/uL (1.0-4.0); LYMPHOCYTES % (AUTO) 3 % (12-44); MEAN CORPUSCULAR HEMOGLOBIN 27 pg (25-34); MEAN CORPUSCULAR HGB CONC 30 g/dL (32-36); MEAN CORPUSCULAR VOLUME 90 fL (80-99); MEAN PLATELET VOLUME 11.1 fL (9.0-12.2); MONOCYTES # (AUTO) 0.7 10^3/uL (0.0-1.0); MONOCYTES % (AUTO) 4 % (0-12); NEUTROPHILS # (AUTO) 16.6 10^3/uL (1.8-7.8); NEUTROPHILS % (AUTO) 90 % (42-75); PLATELET COUNT 199 10^3/uL (130-400); WHITE BLOOD COUNT 18.4 10^3/uL (4.3-11.0)
[2020-07-22 06:19] LABS: ALBUMIN 2.1 GM/DL (3.2-4.5)
[2020-07-22 06:20] LABS: CHLORIDE 98 MMOL/L (98-107); SODIUM 135 MMOL/L (135-145)
[2020-07-22 06:21] LABS: CALCIUM 7.3 MG/DL (8.5-10.1)
[2020-07-22 06:22] LABS: GLUCOSE 119 MG/DL (70-105); TOTAL PROTEIN 4.9 GM/DL (6.4-8.2)
[2020-07-22 06:23] LABS: CARBON DIOXIDE 29 MMOL/L (21-32)
[2020-07-22 06:24] LABS: BILIRUBIN,TOTAL 0.4 MG/DL (0.1-1.0)
[2020-07-22 06:25] LABS: ALKALINE PHOSPHATASE 114 U/L (40-136)
[2020-07-22 06:26] LABS: CREATININE SERUM 0.58 MG/DL (0.60-1.30); GFR ESTIMATED > 60
[2020-07-22 06:27] LABS: BUN/CREATININE RATIO 29
[2020-07-22 06:29] LABS: ALANINE AMINOTRANSFERASE 16 U/L (0-55)
[2020-07-22] MEDS: inSUlin ASPART (NovoLOG) 1 UNIT/0.01 ML (CHARGE PER UNIT) SC SCH ×4 (07:17→21:35)
[2020-07-22] MEDS: BETHANECHOL 25 MG (URECHOLINE) TAB PO SCH ×4 (07:17→20:07)
[2020-07-22] MEDS: CHOLESTYRAMINE 4 GM (QUESTRAN LITE, PREVALITE) PKT PO SCH ×3 (07:17→23:19)
[2020-07-22 08:00] VITALS: BP 125/70
[2020-07-22] MEDS: SENNA W/DOCUSATE (SENOKOT S) TABLET PO SCH ×2 (08:13→20:07)
[2020-07-22 08:19] LABS: HYPOCHROMASIA SLIGHT; LYMPHOCYTES % (MANUAL) 2 %; MONOCYTES % (MANUAL) 1 %; NEUTROPHILS % (MANUAL) 96 %; POLYCHROMASIA SLIGHT
[2020-07-22 08:20] LABS: ANISOCYTOSIS MODERATE; ELLIPT/OVALOCYTES SLIGHT; MICROCYTOSIS SLIGHT; POIKILOCYTOSIS MODERATE; SCHISTOCYTES SLIGHT; SPHEROCYTES SLIGHT; TOXIC GRANULATION/VACUOLAZATIO 2+
[2020-07-22] MEDS: CLOPIDOGREL 75 MG (PLAVIX) TABLET PO SCH (08:45)
[2020-07-22] MEDS: APIXABAN 5 MG (ELIQUIS) TABLET PO SCH ×2 (08:45→20:07)
[2020-07-22] MEDS: VANCOMYCIN 125 MG CAPSULE PO SCH ×4 (08:46→20:07)
[2020-07-22] MEDS ORDERED: dilTIAZem120 MG (CARDIZEM CD) CAP PO SCH ×2 (09:00→10:30)
--- NOTE | 2020-07-22 09:11 | Wound Care Assessment ---
Wound Care Assessment Date Seen by Provider: Jul 22, 2020 Time Seen by Provider: 07:45 Chief Complaint R calf ulcer. 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 wound has moderate bioburden. Dakin's dressings recommended. Past Medical History: Admits Diabetes Type II, Admits Peripheral Artery Disease Smoking Status: Former Smoker Exam Vital Signs Date Time Temp Pulse Resp B/P (MAP) Pulse Ox O2 Delivery O2 Flow Rate FiO2 07/22/20 04:00 36.4 99 20 120/64 (82) 93 Nasal Cannula 1.00 07/17/20 21:00 24 Capillary Refill : Less Than 3 Seconds Results Laboratory Tests 07/21/20 11:11: Glucometer 299H 07/21/20 15:38: Glucometer 306H 07/21/20 18:23: Urine Color YELLOW, Urine Clarity SL CLOUDY, Urine pH 6.0, Urine Specific [place] 1.025H, Urine Protein TRACEH, Urine Glucose (UA) 2+H, Urine Ketones NEGATIVE, Urine Nitrite NEGATIVE, Urine Bilirubin NEGATIVE, Urine Urobilinogen 0.2, Urine Leukocyte Esterase NEGATIVE, Urine RBC (Auto) TRACE-L, Urine RBC RARE, Urine WBC 0-2, Urine Squamous Epithelial Cells RARE, Urine Crystals NONE, Urine Bacteria NEGATIVE, Urine Casts NONE, Urine Mucus LARGEH, Urine Culture Indicated NO 07/21/20 21:15: Glucometer 258H 07/22/20 05:15: White Blood Count 18.4H, Red Blood Count 2.99L, Hemoglobin 8.1L, Hematocrit 27L, Mean Corpuscular Volume 90, Mean Corpuscular Hemoglobin 27, Mean Corpuscular Hemoglobin Concent 30L, Red Cell Distribution Width 21.9H, Platelet Count 199, Mean Platelet Volume 11.1, Immature Granulocyte % (Auto) 1, Neutrophils (%) (Auto) 90H, Lymphocytes (%) (Auto) 3L, Monocytes (%) (Auto) 4, Eosinophils (%) (Auto) 2, Basophils (%) (Auto) 0, Neutrophils # (Auto) 16.6H, Lymphocytes # (Auto) 0.5L, Monocytes # (Auto) 0.7, Eosinophils # (Auto) 0.4H, Basophils # (Auto) 0.0, Immature Granulocyte # (Auto) 0.2H, Neutrophils % (Manual) 96, L ymphocytes % (Manual) 2, Monocytes % (Manual) 1, Toxic Granulation 2+, Polychromasia SLIGHT, Hypochromasia SLIGHT, Poikilocytosis MODERATE, Anisocytosis MODERATE, Microcytosis SLIGHT, Spherocytes SLIGHT, Elliptocytes SLIGHT, Schistocytes SLIGHT, Sodium Level 135, Potassium Level 4.0, Chloride Level 98, Carbon Dioxide Level 29, Anion Gap 8, Blood Urea Nitrogen 17, Creatin ine 0.58L, Estimat Glomerular Filtration Rate > 60, BUN/Creatinine Ratio 29, Glucose Level 119H, Glucometer 128H, Calcium Level 7.3L, Corrected Calcium 8.8, Total Bilirubin 0.4, Aspartate Amino Transf (AST/SGOT) 17, Alanine Aminotransferase (ALT/SGPT) 16, Alkaline Phosphatase 114, Total Protein 4.9L, Albumin 2.1L Microbiology 07/17/20 C. difficile [facility] Antigen & Toxins - Final, Complete KIANNA PERES MD Jul 22, 2020 09:11
--- NOTE | 2020-07-22 10:12 | Physical Therapy Daily Note ---
PT Daily Note-Current Subjective Pt in recliner, agreeable to exercise. Just finished with wound care nurse. Pt denies pain; "I just have this cough that started after I ate and it won't stop. Nothing comes up". Mental Status Patient Orientation: Person, Place, Time, Situation Attachments: Oxygen Transfers SCALE: Activities may be completed with or without assistive devices. 6-Zkcxymhsug-sbkolcb completes the activity by him/herself with no assistance from a helper. 5-Set-up or Clean-up Assistance-helper sets up or cleans up; patient completes activity. [place] assists only prior to or following the activity. 4-Supervision or Touching Assistance-helper provides verbal cues and/or touching/steadying and/or contact guard assistance as patient completes activit y. Assistance may be provided throughout the activity or intermittently. 3-Partial/Moderate Assistance-helper does LESS THAN HALF the effort. [place] lifts, holds or supports trunk or limbs, but provides less than half the effort. 2-Substantial/Maximal Assistance-helper does MORE THAN HALF the effort. [place] lifts or holds trunk or limbs and provides more than half the effort. 7-Ikuhnzyep-cqtlnr does ALL the effort. Patient does none of the effort to complete the activity. Or, the assistance of 2 or more helpers is required for the patient to complete the activity. If activity was not attempted, code reason: 7-Patient Refused. 9-Not Applicable-not attempted and the patient did not perform the activity before the current illness, exacerbation or injury. 10-Not Attempted due to Environmental Limitations-(lack of equipment, weather restraints, etc.). 88-Not Attempted due to Medical Conditions or Safety Concerns. Gait Training Does the Patient Walk?: No and Walking Goal IS indicated Exercises Supine Ex: Quad Set, Glut sets, Straight leg raise, Hip abd/add Supine Reps: 15 Seated Therapy Exercises: Long arc quads, Chair press-ups, Hamstring Curls Seated Reps: 15 resisted hamstring curl Treatments LE ex and UE chair press up for functional strengthening. Pt remained up in recliner with O2 in situ, LE floated per wound care nurse, needs met. Assessment Current Status: Fair Progress Pt tolerated well. Open wound on (R) LE limits prosthethic use at this time. PT Compliance Engineer Products Goals Correction Goals PT Correction Goals Time Frame: Jul 31, 2020 Roll Left & Right (QC): 6 Sit to Lying (QC): 6 Lying-Sitting on Side/Bed(QC): 6 Sit to Stand (QC): 6 Chair/Pyd-cd-Raylx Xfer(QC): 6 Toilet Transfer (QC): 6 Car Transfer (QC): 6 Does the Patient Walk: Yes Walk 10 feet (QC): 6 Walk 50ft with 2 Turns (QC): 6 Walk 150 ft (QC): 6 PT Plan Problem List Problem List: Activity Tolerance, Functional Strength, Safety, Balance, Gait, Transfer, Bed Mobility Treatment/Plan Treatment Plan: Continue Plan of Care Treatment Plan: Education, Functional Activity [place], Functional Strength, Gait, Safety, Therapeutic Exercise, Transfers Treatment Duration: Jul 31, 2020 Frequency: 6 times per week Estimated Hrs Per Day: .5 hour per day Patient and/or Family Agrees t: Yes Discharge Recommendations Barriers to Progress wound on (R) LE Time/GCodes Time In: 0942 Time Out: 1006 Total Billed Treatment Time: 24 Total Billed Treatment 1, EX x 24' ALBAN LANGFORD DPT Jul 22, 2020 10:12
--- NOTE | 2020-07-22 10:30 | NUR ---
IRF Determination: Accepted Chart review complete and it does appear patient meets criteria for admission. Met with patient to discuss details specific to rehabilitation program. Patient states he is much weaker than he was prior to hospitalization and would not be able to return home in current condition. Patient agreeable to admission and required therapy regimen. Above findings discussed with Dr. Sharma - patient accepted. The ARU continues to be capped at 8; therefore, date of admission will depend on bed availability. Anticipate admission, 07/23 vs 07/24. Will continue to follow. Addendum: 07/23/20 at 1108 by NOVEMBER Melissa WALTER Patient to admit to ARU, tomorrow, 07/24/20.
--- NOTE | 2020-07-22 10:36 | Progress Note - Cardiology ---
Cardiology SOAP Progress Note Subjective: Sitting up in recliner at the bedside. Reports increasing SOB this morning. No c/o CP or palpitations. Objective: I&O/Vital Signs 07/22/20 07/22/20 07/23/20 07/23/20 21:00 21:19 00:00 01:00 Temp 36.6 Pulse 107 104 Resp 20 B/P (MAP) 110/66 (81) Pulse Ox 92 90 O2 Delivery Nasal Cannula Nasal Cannula Nasal Cannula O2 Flow Rate 1.50 1.00 1.00 07/23/20 04:00 Temp 36.8 Pulse 115 Resp 18 B/P (MAP) 131/62 (85) Pulse Ox 92 O2 Delivery Nasal Cannula O2 Flow Rate 1.00 07/23/20 00:00 Intake Total 2060 ml Output Total 4375 ml Balance -2315 ml Weight (Pounds): 201 Weight (Ounces): 5.0 Weight (Calculated Kilograms): 91.056885 Constitutional: AAO x 3, well-developed, well-nourished Respiratory: No accessory muscle use, No respiratory distress; chest expansion is symmetric, chest is bilaterally symmetric, other (good air entry) Cardiovascular: regular rate-rhythm; No JVD; tachycardia, systolic murmur (2- 3/6) Gastrointestional: No tender; soft, round, audible bowel sounds Extremities: other (bilat BKA) Neurologic/Psychiatric: grossly intact (moves all extremities) Skin: normal color Results/Procedures: Labs Laboratory Tests 07/22/20 11:31: Glucometer 281H 07/22/20 16:33: Glucometer 225H 07/22/20 21:33: Glucometer 158H 07/23/20 04:08: White Blood Count 16.5H, Red Blood Count 2.96L, Hemoglobin 8.1L, Hematocrit 26L, Mean Corpuscular Volume 89, Mean Corpuscular Hemoglobin 27, Mean Corpuscular Hemoglobin Concent 31L, Red Cell Distribution Width 21.7H, Platelet Count 199, Mean Platelet Volume 11.8, Immature Granulocyte % (Auto) 1, Neutrophils (%) (Auto) 91H, Lymphocytes (%) (Auto) 3L, Monocytes (%) (Auto) 4, Eosinophils (%) (Auto) 1, Basophils (%) (Auto) 0, Neutrophils # (Auto) 15.1H, Lymphocytes # (Auto) 0.5L, Monocytes # (Auto) 0.6, Eosinophils # (Auto) 0.2, Basophils # (Auto) 0.0, Immature Granulocyte # (Auto) 0.2H, Sodium Level 133L, Potassium Level 3.9, Chloride Level 96L, Carbon Dioxide Level 30, Anion Gap 7, Blood Urea Nitrogen 15, Creatinine 0.57L, Estimat Glomerular Filtration Rate > 60, BUN/Creatinine Ratio 26, Glucose Level 215H, Calcium Level 7.3L, Corrected Calcium 8.9, Total Bilirubin 0.5, Aspartate Amino Transf (AST/SGOT) 15, Alanine Aminotransferase (ALT/SGPT) 14, Alkaline Phosphatase 110, Total Protein 4.7L, Albumin 2.0L 07/23/20 05:34: Glucometer 201H Microbiology 07/17/20 C. difficile GDH Antigen & Toxins - Final, Complete A/P: Assessment: Pneumonia - management per Pulmonary services UTI - management per Medical services C-diff (+) Anemia of undetermined etiology, managed by the Medical service Paroxysmal atrial fibrillation (first diagnosed on tele of 07-19-2020) - currently SR Echocardiogram of Jul 14, 2020 showed LVEF 55-65%. Mod to severe aortic sumit nosis. Peak gradient 55mHg, mean gradient 41 mmHg, valve area 1.0 cm2. PASP 40-45mmHg History of sigmoid colon resection, had adhesion managed in August 2019. 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 History of TIA in 2004 at [facility]. Currently on apixaban stroke prophylaxis Plan: Complex management due to multiple comorbidities (see above) Continue OAC with Eliquis Anemia of undetermined etiology - management per Medical services Pneumonia - management per Pulmonary services UTI - management per Medical services Monitor electrolytes and replace as indicated HR not well controlled increase Cardizem CD to 240mg Increasing SOB - give IV Lasix CXR today Worsening leukocytosis - medical services managing NEIDA OLIVEIRA Jul 22, 2020 10:36
[2020-07-22] MEDS ORDERED: FUROSEMIDE 40 MG/4 ML INJ (LASIX) IVP ONE (10:45)
[2020-07-22 12:00] VITALS: BP 120/62
--- NOTE | 2020-07-22 13:37 | Diagnostic Imaging Report ---
Indication: Dyspnea. PA and lateral chest obtained at 0116 p.m. is compared to 07/17/2020 Heart is normal in size. There is unchanged left basilar infiltrate and or atelectasis with minimal left pleural effusion. Right lung shows no focal infiltrate. There is a trace of pleural fluid in the right costophrenic angle posteriorly. The Port-A-Cath is unchanged tip overlying the SVC IMPRESSION: Unchanged left basilar infiltrate with minimal left pleural effusion and trace right pleural effusion. Dictated by: Dictated on workstation # [id number]
[2020-07-22 16:30] VITALS: BP 125/58
--- NOTE | 2020-07-22 16:37 | Progress Note ---
Subjective Subjective/Events-last exam Pt denies concerns. Eating lunch in chair. Focused Exam Time of Focused Exam: 10:00 Objective Exam Last Set of Vital Signs Vital Signs Date Time Temp Pulse Resp B/P (MAP) Pulse Ox O2 Delivery O2 Flow Rate FiO2 07/22/20 12:42 107 07/22/20 12:00 36.0 18 120/62 (81) 98 Nasal Cannula 1.00 07/17/20 21:00 24 Capillary Refill : Less Than 3 Seconds I&O Intake and Output 07/22/20 00:00 Intake Total 1145 ml Output Total 775 ml Balance 370 ml Intake Oral 1145 ml Output Urine Total 775 ml # Bowel Movements 1 General: Alert Heart: Regular Rate, Other (harsh holosystolic murmur radiating to neck and back) Neuro: Normal Speech Psych/Mental Status: Mood NL Results/Procedures Lab Laboratory Tests 07/21/20 18:23: Urine Color YELLOW, Urine Clarity SL CLOUDY, Urine pH 6.0, Urine Specific [place] 1.025H, Urine Protein TRACEH, Urine Glucose (UA) 2+H, Urine Ketones NEGATIVE, Urine Nitrite NEGATIVE, Urine Bilirubin NEGATIVE, Urine Urobilinogen 0.2, Urine Leukocyte Esterase NEGATIVE, Urine RBC (Auto) TRACE-L, Urine RBC RARE, Urine WBC 0-2, Urine Squamous Epithelial Cells RARE, Urine Crystals NONE, Urine Bacteria NEGATIVE, Urine Casts NONE, Urine Mucus LARGEH, Urine Culture Indicated NO 07/21/20 21:15: Glucometer 258H 07/22/20 05:15: Glucometer 128H, White Blood Count 18.4H, Red Blood Count 2.99L, Hemoglobin 8.1L , Hematocrit 27L, Mean Corpuscular Volume 90, Mean Corpuscular Hemoglobin 27, Mean Corpuscular Hemoglobin Concent 30L, Red Cell Distribution Width 21.9H, Platelet Count 199, Mean Platelet Volume 11.1, Immature Granulocyte % (Auto) 1, Neutrophils (%) (Auto) 90H, Lymphocytes (%) (Auto) 3L, Monocytes (%) (Auto) 4, Eosinophils (%) (Auto) 2, Basophils (%) (Auto) 0, Neutrophils # (Auto) 16.6H, Lymphocytes # (Auto) 0.5L, Monocytes # (Auto) 0.7, Eosinophils # (Auto) 0.4H, Basophils # (Auto) 0.0, Immature Granulocyte # (Auto) 0.2H, Neutrophils % (Manual) 96, Lymphocytes % (Manual) 2, Monocytes % (Manual) 1, Toxic Granulation 2+, Polychromasia SLIGHT, Hypochromasia SLIGHT, Poikilocytosis MODERATE, Anisocytosis MODERATE, Microcytosis SLIGHT, Spherocytes SLIGHT, Elliptocytes SLIGHT, Schistocytes SLIGHT, Sodium Level 135, Potassium Level 4.0, Chloride Level 98, Carbon Dioxide Level 29, Anion Gap 8, Blood Urea Nitrogen 17, Creatinine 0.58L, Estimat Glomerular Filtration Rate > 60, BUN/Creatinine Ratio 29, Glucose Level 119H, Calcium Level 7.3L, Corrected Calcium 8.8, Total Bilirubin 0.4, Aspartate Amino Transf (AST/SGOT) 17, Alanine Aminotransferase (ALT/SGPT) 16, Alkaline Phosphatase 114, Total Protein 4.9L, Albumin 2.1L 07/22/20 11:31: Glucometer 281H Microbiology 07/17/20 C. difficile GDH Antigen & Toxins - Final, Complete Assessment/Plan Assessment/Plan Assessment & Plan UTI- initially admitted at [facility] and treated with vanc and ce fepime initially, had worsening leukocytosis and increased PCT so cefepime was changed to meropenem. No IV abx at this time. Leukocytosis- progressing in spite of above, CXR today with stable left basilar infiltrate Hypoxia- requiring 1 lpm supplemental oxygen, given IV lasix today Aortic stenosis- cardiology consulted appreciate recommendations Atrial fibrillation with RVR- required cardizem drip initially, now on PO ca rdizem, appreciate Cardiology recommendations C diff colitis- on PO vanc and questran Colon cancer- s/p resection n 10/2019 and on chemotherapy DMII h/o bilateral BKA Clinical Quality Measures DVT/VTE Risk/Contraindication: Risk Factor Score Per Nursin RFS Level Per Nursing on Admit: 4+=Very High FELA TITUS MD Jul 22, 2020 16:37
--- NOTE | 2020-07-22 17:59 | Progress Note - Cardiology ---
Cardiology SOAP Progress Note Subjective: Gen malaise present Denies cp or shortness of breath No palp or syncope or swelling No n/v/d Objective: I&O/Vital Signs 07/22/20 07/22/20 07/22/20 07/22/20 06:36 08:00 09:00 12:00 Temp 36.4 36.0 Pulse 106 96 90 Resp 18 18 B/P (MAP) 125/70 (88) 120/62 (81) Pulse Ox 94 98 O2 Delivery Nasal Cannula Nasal Cannula Nasal Cannula O2 Flow Rate 1.00 1.50 1.00 07/22/20 07/22/20 12:42 16:30 Temp 37.0 Pulse 107 92 Resp 18 B/P (MAP) 125/58 (80) Pulse Ox 94 O2 Delivery Nasal Cannula O2 Flow Rate 1.00 07/22/20 00:00 Intake Total 1020 ml Output Total 575 ml Balance 445 ml Weight (Pounds): 201 Weight (Ounces): 5.0 Weight (Calculated Kilograms): 91.916450 Constitutional: AAO x 3, well-developed, well-nourished Respiratory: No accessory muscle use, No respiratory distress; chest expansion is symmetric, chest is bilaterally symmetric, other (good air entry) Cardiovascular: regular rate-rhythm; No JVD; tachycardia, systolic murmur (2- 3/6) Gastrointestional: No tender; soft, round, audible bowel sounds Extremities: other (bilat BKA) Neurologic/Psychiatric: grossly intact (moves all extremities) Skin: normal color Results/Procedures: Labs Laboratory Tests 07/21/20 18:23: Urine Color YELLOW, Urine Clarity SL CLOUDY, Urine pH 6.0, Urine Specific [place] 1.025H, Urine Protein TRACEH, Urine Glucose (UA) 2+H, Urine Ketones NEGATIVE, Urine Nitrite NEGATIVE, Urine Bilirubin NEGATIVE, Urine Urobilinogen 0.2, Urine Leukocyte Esterase NEGATIVE, Urine RBC (Auto) TRACE-L, Urine RBC RARE, Urine WBC 0-2, Urine Squamous Epithelial Cells RARE, Urine Crystals NONE, Urine Bacteria NEGATIVE, Urine Casts NONE, Urine Mucus LARGEH, Urine Culture Indicated NO 07/21/20 21:15: Glucometer 258H 07/22/20 05:15: Glucometer 128H, White Blood Count 18.4H, Red Blood Count 2.99L, Hemoglobin 8.1L , Hematocrit 27L, Mean Corpuscular Volume 90, Mean Corpuscular Hemoglobin 27, Mean Corpuscular Hemoglobin Concent 30L, Red Cell Distribution Width 21.9H, Platelet Count 199, Mean Platelet Volume 11.1, Immature Granulocyte % (Auto) 1, Neutrophils (%) (Auto) 90H, Lymphocytes (%) (Auto) 3L, Monocytes (%) (Auto) 4, Eosinophils (%) (Auto) 2, Basophils (%) (Auto) 0, Neutrophils # (Auto) 16.6H, Lymphocytes # (Auto) 0.5L, Monocytes # (Auto) 0.7, Eosinophils # (Auto) 0.4H, Basophils # (Auto) 0.0, Immature Granulocyte # (Auto) 0.2H, Neutrophils % (Manual) 96, Lymphocytes % (Manual) 2, Monocytes % (Manual) 1, Toxic Granulation 2+, Polychromasia SLIGHT, Hypochromasia SLIGHT, Poikilocytosis MODERATE, Anisocytosis MODERATE, Microcytosis SLIGHT, Spherocytes SLIGHT, Elliptocytes SLIGHT, Schistocytes SLIGHT, Sodium Level 135, Potassium Level 4.0, Chloride Level 98, Carbon Dioxide Level 29, Anion Gap 8, Blood Urea Nitrogen 17, Creatinine 0.58L, Estimat Glomerular Filtration Rate > 60, BUN/Creatinine Ratio 29, Glucose Level 119H, Calcium Level 7.3L, Corrected Calcium 8.8, Total Bilirubin 0.4, Aspartate Amino Transf (AST/SGOT) 17, Alanine Aminotransferase (ALT/SGPT) 16, Alkaline Phosphatase 114, Total Protein 4.9L, Albumin 2.1L 07/22/20 11:31: Glucometer 281H 07/22/20 16:33: Glucometer 225H Microbiology 07/17/20 C. difficile GDH Antigen & Toxins - Final, Complete A/P: Assessment: Pneumonia - management per Pulmonary services UTI - management per Medical services C-diff (+) Anemia of undetermined etiology, managed by the Medical service Paroxysmal atrial fibrillation (first diagnosed on of 07-19-2020) - currently SR Echocardiogram of Jul 14, 2020 showed LVEF 55-65%. Mod to severe aortic stenosis. Peak gradient 55mHg, mean gradient 41 mmHg, valve area 1.0 cm2. PASP 40-45mmHg History of sigmoid colon resection, had adhesion managed in August 2019. 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 History of TIA in 2004 at [facility]. Currently on apixaban stroke prophylaxis Plan: Complex management due to multiple comorbidities (see above) Continue OAC with Eliquis Anemia of undetermined etiology - management per Medical services Pneumonia - management per Pulmonary services UTI - management per Medical services Monitor electrolytes and replace as indicated HR not well controlled increase Cardizem CD to 240mg Increasing SOB - give IV Lasix CXR today Worsening leukocytosis - Medical services managing CHANDNI KIRAN MD FACP FACC CCDS Jul 22, 2020 17:59
[2020-07-22 19:00] VITALS: BP 118/70
[2020-07-22] MEDS: SIMvastatin 20 MG (ZOCOR) TAB PO SCH (20:07)
[2020-07-22] MEDS: DAKIN'S 1/2 STRENGTH (0.25%) 473 ML BTL TOP SCH (20:15)
[2020-07-22] MEDS: RT-ALBUTEROL/IPRATROPIUM 3 ML (DUONEB) VIAL INH SCH (21:19)
[2020-07-22] MEDS: MELATONIN 3 MG TABLET PO PRN (21:36)
[2020-07-23] VITALS (7 sets, daily range): BP systolic 110–132; BP diastolic 51–70
[2020-07-23 04:25] LABS: BASOPHILS % (AUTO) 0 % (0-10); EOSINOPHILS # (AUTO) 0.2 10^3/uL (0.0-0.3); EOSINOPHILS % (AUTO) 1 % (0-10); HEMATOCRIT 26 % (40-54); HEMOGLOBIN 8.1 g/dL (13.3-17.7); LYMPHOCYTES # (AUTO) 0.5 10^3/uL (1.0-4.0); LYMPHOCYTES % (AUTO) 3 % (12-44); MEAN CORPUSCULAR HEMOGLOBIN 27 pg (25-34); MEAN CORPUSCULAR HGB CONC 31 g/dL (32-36); MEAN CORPUSCULAR VOLUME 89 fL (80-99); MEAN PLATELET VOLUME 11.8 fL (9.0-12.2); MONOCYTES # (AUTO) 0.6 10^3/uL (0.0-1.0); MONOCYTES % (AUTO) 4 % (0-12); NEUTROPHILS # (AUTO) 15.1 10^3/uL (1.8-7.8); NEUTROPHILS % (AUTO) 91 % (42-75); PLATELET COUNT 199 10^3/uL (130-400); WHITE BLOOD COUNT 16.5 10^3/uL (4.3-11.0)
[2020-07-23 04:57] LABS: CHLORIDE 96 MMOL/L (98-107); POTASSIUM 3.9 MMOL/L (3.6-5.0); SODIUM 133 MMOL/L (135-145)
[2020-07-23 04:58] LABS: CALCIUM 7.3 MG/DL (8.5-10.1)
[2020-07-23 05:00] LABS: GLUCOSE 215 MG/DL (70-105); TOTAL PROTEIN 4.7 GM/DL (6.4-8.2)
[2020-07-23 05:01] LABS: BILIRUBIN,TOTAL 0.5 MG/DL (0.1-1.0); CARBON DIOXIDE 30 MMOL/L (21-32)
[2020-07-23 05:03] LABS: ALKALINE PHOSPHATASE 110 U/L (40-136); CREATININE SERUM 0.57 MG/DL (0.60-1.30); GFR ESTIMATED > 60
[2020-07-23 05:04] LABS: BUN/CREATININE RATIO 26
[2020-07-23 05:06] LABS: ALANINE AMINOTRANSFERASE 14 U/L (0-55)
[2020-07-23] MEDS: inSUlin ASPART (NovoLOG) 1 UNIT/0.01 ML (CHARGE PER UNIT) SC SCH ×4 (05:47→21:14)
[2020-07-23] MEDS: BETHANECHOL 25 MG (URECHOLINE) TAB PO SCH ×4 (05:47→21:13)
[2020-07-23] MEDS: CHOLESTYRAMINE 4 GM (QUESTRAN LITE, PREVALITE) PKT PO SCH ×3 (05:47→21:14)
[2020-07-23] MEDS: LOPERAMIDE 2 MG (IMODIUM) TABLET PO PRN (08:42)
[2020-07-23] MEDS: APIXABAN 5 MG (ELIQUIS) TABLET PO SCH ×2 (08:42→21:13)
[2020-07-23] MEDS: CLOPIDOGREL 75 MG (PLAVIX) TABLET PO SCH (08:43)
[2020-07-23] MEDS: VANCOMYCIN 125 MG CAPSULE PO SCH ×4 (08:43→21:13)
[2020-07-23] MEDS: DAKIN'S 1/2 STRENGTH (0.25%) 473 ML BTL TOP SCH ×2 (08:44→21:15)
[2020-07-23] MEDS: SENNA W/DOCUSATE (SENOKOT S) TABLET PO SCH ×2 (08:44→21:14)
[2020-07-23] MEDS ORDERED: FUROSEMIDE 40 MG/4 ML INJ (LASIX) IVP SCH (09:00)
--- NOTE | 2020-07-23 09:52 | Progress Note - Cardiology ---
Cardiology SOAP Progress Note Subjective: Lying in bed. States he feels his breathing is much better today than yesterday. No c/o palpitations, syncope,near syncope or CP. Objective: I&O/Vital Signs 07/23/20 07/23/20 07/23/20 07/23/20 00:00 01:00 04:00 07:00 Temp 36.6 36.8 Pulse 107 104 115 111 Resp 20 18 B/P (MAP) 110/66 (81) 131/62 (85) Pulse Ox 90 92 O2 Delivery Nasal Cannula Nasal Cannula O2 Flow Rate 1.00 1.00 07/23/20 07/23/20 08:39 10:12 Pulse Ox 92 O2 Delivery Nasal Cannula Nasal Cannula O2 Flow Rate 1.00 1.00 07/23/20 00:00 Intake Total 2060 ml Output Total 4375 ml Balance -2315 ml Weight (Pounds): 201 Weight (Ounces): 5.0 Weight (Calculated Kilograms): 91.094610 Constitutional: AAO x 3, well-developed, well-nourished Respiratory: No accessory muscle use, No respiratory distress; chest expansion is symmetric, chest is bilaterally symmetric, other (good air entry) Cardiovascular: regular rate-rhythm; No JVD; tachycardia, systolic murmur (2- 3/6) Gastrointestional: No tender; soft, round, audible bowel sounds Extremities: swelling (L arm swelling, mod (improving)), other (bilat BKA) Neurologic/Psychiatric: grossly intact (moves all extremities) Skin: normal color Results/Procedures: Labs Laboratory Tests 07/22/20 11:31: Glucometer 281H 07/22/20 16:33: Glucometer 225H 07/22/20 21:33: Glucometer 158H 07/23/20 04:08: White Blood Count 16.5H, Red Blood Count 2.96L, Hemoglobin 8.1L, Hematocrit 26L, Mean Corpuscular Volume 89, Mean Corpuscular Hemoglobin 27, Mean Corpuscular Hemoglobin Concent 31L, Red Cell Distribution Width 21.7H, Platelet Count 199, Mean Platelet Volume 11.8, Immature Granulocyte % (Auto) 1, Neutrophils (%) (Auto) 91H, Lymphocytes (%) (Auto) 3L, Monocytes (%) (Auto) 4, Eosinophils (%) (Auto) 1, Basophils (%) (Auto) 0, Neutrophils # (Auto) 15.1H, Lymphocytes # (Auto) 0.5L, Monocytes # (Auto) 0.6, Eosinophils # (Auto) 0.2, Basophils # (Auto) 0.0, Immature Granulocyte # (Auto) 0.2H, Sodium Level 133L, Potassium Level 3.9, Chloride Level 96L, Carbon Dioxide Level 30, Anion Gap 7, Blood Urea Nitrogen 15, Creatinine 0.57L, Estimat Glomerular Filtration Rate > 60, BUN/Creatinine Ratio 26, Glucose Level 215H, Calcium Level 7.3L, Corrected Calcium 8.9, Total Bilirubin 0.5, Aspartate Amino Transf (AST/SGOT) 15, Alanine Aminotransferase (ALT/SGPT) 14, Alkaline Phosphatase 110, Total Protein 4.7L, Albumin 2.0L 07/23/20 05:34: Glucometer 201H Microbiology 07/17/20 C. difficile GDH Antigen & Toxins - Final, Complete A/P: Assessment: Pneumonia - management per Pulmonary services UTI - management per Medical services C-diff (+) Anemia of undetermined etiology, managed by the Medical service Paroxysmal atrial fibrillation (first diagnosed on tele of 07-19-2020) - currently SR Echocardiogram of Jul 14, 2020 showed LVEF 55-65%. Mod to severe aortic stenosis. Peak gradient 55mHg, mean gradient 41 mmHg, valve area 1.0 cm2. PASP 40-45mmHg History of sigmoid colon resection, had adhesion managed in August 2019. 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 History of TIA in 2003 at [facility]. Currently on apixaban stroke prophylaxis Plan: Complex management due to multiple comorbidities (see above) Continue OAC with Eliquis Anemia of undetermined etiology - management per Medical services Pneumonia - management per Pulmonary services C-diff - management per medical services Monitor electrolytes and replace as indicated Change IV lasix out to oral starting tomorrow Increase BB to 25mg daily for HR control There is no cardiology coverage over the weekend. Refer to primary care attending. If emergent cardiac services are need will require transfer to tertiary care facility, to be decided by primary care attending. NEIDA OLIVEIRA [facility] Jul 23, 2020 09:52
[2020-07-23] MEDS: RT-ALBUTEROL/IPRATROPIUM 3 ML (DUONEB) VIAL INH SCH ×3 (10:12→20:02)
--- NOTE | 2020-07-23 10:45 | Physical Therapy Daily Note ---
PT Daily Note-Current Subjective Patient in bed pre tx, agrees to PT, voices no complaints of pain. Appearance Patient in bed post tx with nurse call, phone, tray, all needs met. Mental Status Patient Orientation: Person, Place, Situation Attachments: Oxygen Transfers SCALE: Activities may be completed with or without assistive devices. 9-Aroebktfkp-zmnuwjn completes the activity by him/herself with no assistance from a helper. 5-Set-up or Clean-up Assistance-helper sets up or cleans up; patient completes activity. [place] assists only prior to or following the activity. 4-Supervision or Touching Assistance-helper provides verbal cues and/or touching/steadying and/or contact guard assistance as patient completes activity. Assistance may be provided throughout the activity or intermittently. 3-Partial/Moderate Assistance-helper does LESS THAN HALF the effort. [place] lifts, holds or supports trunk or limbs, but provides less than half the effort. 2-Substantial/Maximal Assistance-helper does MORE THAN HALF the effort. [place] lifts or holds trunk or limbs and provides more than half the effort. 9-Mqszoqhrt-zmured does ALL the effort. Patient does none of the effort to complete the activity. Or, the assistance of 2 or more helpers is required for the patient to complete the activity. If activity was not attempted, code reason: 7-Patient Refused. 9-Not Applicable-not attempted and the patient did not perform the activity before the current illness, exacerbation or injury. 10-Not Attempted due to Environmental Limitations-(lack of equipment, weather restraints, etc.). 88-Not Attempted due to Medical Conditions or Safety Concerns. Exercises Supine Ex: Quad Set, Glut sets, Heel Slides, Short Arc Quads, Straight leg raise, Hip abd/add Supine Reps: 20 (2 sets of 10) Treatments LE exercise Assessment Current Status: Fair Progress patient is looking forward to getting transferred to rehab PT Halfway Goals Halfway Goals PT Paper Ruler Goals Time Frame: Jul 31, 2020 Roll Left & Right (QC): 6 Sit to Lying (QC): 6 Lying-Sitting on Side/Bed(QC): 6 Sit to Stand (QC): 6 Chair/Ykd-tu-Tjyuz Xfer(QC): 6 Toilet Transfer (QC): 6 Car Transfer (QC): 6 Does the Patient Walk: Yes Walk 10 feet (QC): 6 Walk 50ft with 2 Turns (QC): 6 Walk 150 ft (QC): 6 PT Plan Problem List Problem List: Activity Tolerance, Functional Strength, Safety, Balance, Gait, Transfer, Bed Mobility, ROM Treatment/Plan Treatment Plan: Continue Plan of Care Treatment Plan: Education, Functional Activity [place], Functional Strength, Gait, Safety, Therapeutic Exercise, Transfers Treatment Duration: Jul 31, 2020 Frequency: 6 times per week Estimated Hrs Per Day: .5 hour per day Patient and/or Family Agrees t: Yes Safety Risks/Education Patient Education: Correct Positioning, Safety Issues Teaching Recipient: Patient Teaching Methods: Demonstration, Discussion Response to Teaching: Reinforcement Needed Time/GCodes Time In: 1030 Time Out: 1042 Total Billed Treatment Time: 12 Total Billed Treatment 1 visit EX YAAKOV KHAN PT Jul 23, 2020 10:45
--- NOTE | 2020-07-23 14:07 | Progress Note - Hospitalist ---
Subjective HPI/CC On Admission Date Seen by Provider: Jul 23, 2020 Time Seen by Provider: 12:30 CC: New onset AF w/RVR with PNA, UTI and CHF with moderate aortic stenosis HPI: This is a very complicated 75yoWM who I transferred from [facility] where he was admitted after COVID overflow status from [facility] ER for UTI placed on Vanc and Cefepime after ECHO done in ER which revealed aortic stenosis and did well after admission but required 1 unit of blood for hgb 7.2 but became more complicated due to wheezing and evidence of CHF with elevated wbc of 21 and increased PCT prompting changing Cefepime to Meropenem and maintaining Vanc but then had new onset AF w/RVR requiring cardizem drip and transfer to cardiology care at [facility]. T bernard he was dx with C diff colitis and placed on Vanc PO QID and Questran TID. Patient appears to be very chronically ill given bilateral BKA's in the past uses prosthesis and colon cancer s/p resection 10/2019 and undergoing chemotherapy by [facility]. Patient denies pain and he is now in NSR. Subjective/Events-last exam Patient is sitting in his chair watching TV has no specific complaints. He is awake and alert knows that he is being transferred to rehab tomorrow. Looking forward to getting stronger. Review of Systems Neurological: Weakness Focused Exam Time of Focused Exam: 10:00 Objective Exam Vital Signs Vital Signs Date Time Temp Pulse Resp B/P (MAP) Pulse Ox O2 Delivery O2 Flow Rate FiO2 07/23/20 12:54 87 07/23/20 10:12 92 Nasal Cannula 1.00 07/23/20 04:00 36.8 18 131/62 (85) 07/17/20 21:00 24 Capillary Refill : Less Than 3 Seconds General Appearance: Chronically ill HEENT: Pale Conjunctivae (R) Neck: Normal Inspection, Supple Respiratory: Lungs Clear, Normal Breath Sounds, No Accessory Muscle Use Cardiovascular: Regular Rate, Rhythm, Systolic Murmur (High-pitched 2/6 to 3/6 holosystolic) Gastrointestinal: Normal Bowel Sounds, Non Tender, Soft Rectal: Deferred Extremity: Other (Bilateral BKA) Neurologic/Psychiatric: Alert, Oriented x3, Normal Mood/Affect Skin: Pallor Results/Procedures Lab Laboratory Tests 07/23/20 04:08 Patient resulted labs reviewed. Assessment/Plan Assessment and Plan Assess & Plan/Chief Complaint Assessment & Plan UTI-solved Leukocytosis- progressing in spite of above, CXR today with stable left basilar infiltrate Hypoxia- Aortic stenosis- cardiology consulted appreciate recommendations Atrial fibrillation with RVR- on PO cardizem, appreciate Cardiology vanessa mmendations C diff colitis- on PO vanc and questran Colon cancer- s/p resection n 10/2019 and on chemotherapy DMII-poorly controlled secondary to acute illness h/o bilateral BKA Plan to transfer to rehab tomorrow Clinical Quality Measures DVT/VTE Risk/Contraindication: Risk Factor Score Per Nursin RFS Level Per Nursing on Admit: 4+=Very High RODRICK YUSUF MD Jul 23, 2020 14:07
[2020-07-23] MEDS: SIMvastatin 20 MG (ZOCOR) TAB PO SCH (21:13)
[2020-07-24] MEDS: BETHANECHOL 25 MG (URECHOLINE) TAB PO SCH ×2 (06:59→09:54)
[2020-07-24] MEDS: CHOLESTYRAMINE 4 GM (QUESTRAN LITE, PREVALITE) PKT PO SCH ×2 (06:59→09:49)
[2020-07-24] MEDS: inSUlin ASPART (NovoLOG) 1 UNIT/0.01 ML (CHARGE PER UNIT) SC SCH ×2 (06:59→11:20)
[2020-07-24 08:00] VITALS: BP 178/74
[2020-07-24] MEDS ORDERED: FUROSEMIDE 40 MG (LASIX) TAB PO SCH (09:00)
[2020-07-24] MEDS: RT-ALBUTEROL/IPRATROPIUM 3 ML (DUONEB) VIAL INH SCH (09:30)
[2020-07-24] MEDS: APIXABAN 5 MG (ELIQUIS) TABLET PO SCH (09:50)
[2020-07-24] MEDS: VANCOMYCIN 125 MG CAPSULE PO SCH (09:50)
[2020-07-24] MEDS: CLOPIDOGREL 75 MG (PLAVIX) TABLET PO SCH (09:50)
[2020-07-24] MEDS: DAKIN'S 1/2 STRENGTH (0.25%) 473 ML BTL TOP SCH (09:54)
[2020-07-24] MEDS: SENNA W/DOCUSATE (SENOKOT S) TABLET PO SCH (09:59)
== END 2020-07-24 11:30 | DRG 308 ==
LOC: CSD 16:40 → 4TH 07-19 11:50 → ICU 07-19 14:50 → 4TH 07-20 13:05
PROVIDERS: ADMIT Internal Medicine; ATTEND Family Medicine
DX: I48.0 Paroxysmal atrial fibrillation (principal); J18.9 Pneumonia, unspecified organism; T83.511A Infection and inflammatory reaction due to indwelling urethral catheter, initial encounter; A04.72 Enterocolitis due to Clostridium difficile, not specified as recurrent; N39.0 Urinary tract infection, site not specified; C18.9 Malignant neoplasm of colon, unspecified; I35.2 Nonrheumatic aortic (valve) stenosis with insufficiency; I11.0 Hypertensive heart disease with heart failure; I50.9 Heart failure, unspecified; D64.9 Anemia, unspecified; B96.4 Proteus (mirabilis) (morganii) as the cause of diseases classified elsewhere; E11.65 Type 2 diabetes mellitus with hyperglycemia; R09.02 Hypoxemia; E78.00 Pure hypercholesterolemia, unspecified; E78.5 Hyperlipidemia, unspecified; R01.1 Cardiac murmur, unspecified; N31.9 Neuromuscular dysfunction of bladder, unspecified; Z86.19 Personal history of other infectious and parasitic diseases; Z87.891 Personal history of nicotine dependence; Z86.73 Personal history of transient ischemic attack (TIA), and cerebral infarction without residual deficits; Z79.02 Long term (current) use of antithrombotics/antiplatelets; Z79.899 Other long term (current) drug therapy; Z90.49 Acquired absence of other specified parts of digestive tract; Z90.79 Acquired absence of other genital organ(s); Z79.82 Long term (current) use of aspirin; Z89.511 Acquired absence of right leg below knee; Z89.512 Acquired absence of left leg below knee; Z79.4 Long term (current) use of insulin; Z79.01 Long term (current) use of anticoagulants
CPT/HCPCS: 36415; 71045; 71046; 80053; 81000; 82962; 83735; 84100; 85007; 85025; 85027; 87324; 87449; 93005; 94640; 94760

== ENCOUNTER 2020-07-24 11:40 | Inpatient (IN) | payer MEDICARE, OTHER ==
--- NOTE | 2020-07-24 11:30 | NUR ---
Pt admitted to room 229-1 on 07/24/[address] [place] [address] via w/c, accompanied by PT. GEE QUIGLEY introduced to surroundings, call light, bed controls, phone, TV, temperature control, lights, meal times, smoking policy, visitor policy, side rail policy, bathrooms and showers. Patient Rights given to patient in the handbook. GEE QUIGLEY verbalizes understanding that [facility] is not responsible for the loss or damage to any personal effects or valuables that are kept in the patients posession during their hospitalization. The following Patient Care Plans were discussed with the pt: Discharge Planning, Impaired Mobility, Self Care Deficit, Potential for fall/injury. GEE QUIGLEY verbalizes understanding of Interdisciplinary Patient Education. Patient and/or family were informed about the Rapid Response Team and its purpose. Patient received Patient Rights Booklet, which includes Privacy Act Statement and Data Collection Information Summary.
[~2020-07-24 11:40] MED LIST changes: +ACETAMINOPHEN 500 MG TAB (TYLENOL) PO PRN; +ALPRAZolam 0.25 MG (XANAX) TAB PO PRN; +BETHANECHOL CHLORIDE PO; +BISACODYL 10 MG SUPP (DULCOLAX) PR PRN; +CALCIUM CARBONATE 500 MG (TUMS) TAB.CHEW PO PRN; +DOCUSATE SODIUM 100 MG (COLACE) CAP PO PRN; +DOCUSATE SODIUM 100 MG (COLACE) CAP PO SCH; +FLEET ENEMA ADULT 1 EA BTL PR PRN; +LACTULOSE SYRUP 10GM/15ML (ENULOSE) 30ML UDC PO PRN; +LOPERAMIDE 2 MG (IMODIUM) TABLET PO PRN; +MELATONIN 3 MG TABLET PO PRN; +ONDANSETRON 4 MG (ZOFRAN) ORAL DISSOLVE TAB PO PRN; +SENNA W/DOCUSATE (SENOKOT S) TABLET PO SCH; +diphenhydrAMINE 25 MG TAB (BENADRYL) PO PRN; +guaiFENesin/CODEINE (ROBITUSSIN AC) 10ML UDC PO PRN; +polyethylene glycoL POWDER 17 GM (MIRALAX) PACK PO SCH
[2020-07-24 11:45] VITALS: BP 105/57
--- NOTE | 2020-07-24 13:13 | Physical Therapy Evaluation ---
PT Evaluation-General Medical Diagnosis Admission Date 07/24/2020 Medical Diagnosis: Debility Onset Date: Jul 24, 2020 Therapy Diagnosis Therapy Diagnosis: weakness Height/Weight Height (Feet): 6 Height (Inches): 2.00 Weight (Pounds): 201 Weight (Ounces): 5.0 Precautions Precautions/Isolations: Contact Isolation Referral Physician: Edith Reason for Referral: Evaluation/Treatment Medical History Pertinent Medical History: DM, Heart Failure, HTN, Neuropathy Additional Medical History B amputee Current History Pt post acute hospital stay due to UTI and a fib with LE ulcers. Transferred to ARU for skilled medical care and therapy services to promote improved functional mobility and strength. Reviewed History: Yes Social History Home: Single Level Current Living Status: Other Family (niece) Entry Into Home: Ramp Prior Prior Level of Function SCALE: Activities may be completed with or without assistive devices. 6-Uugwokgjyh-xmmptat completes the activity by him/herself with no assistance from a helper. 5-Set-up or Clean-up Assistance-helper sets up or cleans up; patient completes activity. [place] assists only prior to or following the activity. 4-Supervision or Touching Assistance-helper provides verbal cues and/or touching/steadying and/or contact guard assistance as patient completes activity. Assistance may be provided throughout the activity or intermittently. 3-Partial/Moderate Assistance-helper does LESS THAN HALF the effort. [place] lifts, holds or supports trunk or limbs, but provides less than half the effort. 2-Substantial/Maximal Assistance-helper does MORE THAN HALF the effort. [place] lifts or holds trunk or limbs and provides more than half the effort. 3-Qnhbabqol-oyhtsl does ALL the effort. Patient does none of the effort to complete the activity. Or, the assistance of 2 or more helpers is required for the patient to complete the activity. If activity was not attempted, code reason: 7-Patient Refused. 9-Not Applicable-not attempted and the patient did not perform the activity before the current illness, exacerbation or injury. 10-Not Attempted due to Environmental Limitations-(lack of equipment, weather restraints, etc.). 88-Not Attempted due to Medical Conditions or Safety Concerns. Bed Mobility: 6 Transfers (B,C,W/C): 6 Gait: 6 Wheelchair Mobility: 6 Indoor Mobility (Ambulation): Independent Stairs: Independent Pt reports prior to June, he was walking with a cane with B prosthetics. Since June, he has been using a wheelchair more. Reports he is typically able to care for himself without assist. Lives iwth his niece. PT Evaluation-Current Subjective Agrees to PT. Reports he has been performing transfers by lifing his upper body and scooting in/out of the chair. Notes functional weakness is making this difficult. Objective Patient Orientation: Person, Place, Time, Situation ROM/Strength ROM Upper Extremities WNL ROM Lower Extremities WFL Strength Lower Extremities grossly 3/5 throughout residual limbs Integumentary/Posture Integumentary refer to nursing notes for full assessment. Bowel Incontinence: No Bladder Incontinence: No Posture symmetrical; slight rounded shoulders. Neuromuscular (Tone, Coordination, Reflexes) intact and functional Sensory Vision: Functional Hearing: Functional Hand Dominance: Right Sensation Right Lower Extremit: Impaired Sensation Left Lower Extremity: Impaired Transfers Roll Left & Right (QC): 2 Sit to Lying (QC): 3 Lying to Sitting/Side of Bed(Q: 3 Sit to Stand (QC): 88 (unable to apply prosthesis at this time.) Chair/Spx-pq-Qrmrm Xfer(QC): 1 (assist of 2 to scoot into the chair. ) Toilet Transfer (QC): 88 Car Transfer (QC): 88 Pt transfers with the chair pulled directly to the bed and scoots into the chair or returns to the bed. Gait Does the Patient Walk?: No and Walking Goal IS indicated Anticipated Mode of Locomotion: Both Walk 10 feet (QC): 88 Walk 50 ft with 2 Turns(QC): 88 Walk 150 ft (QC): 88 Walking 10ft/uneven surface-QC: 88 Comments/Gait Description unable to don prosthesis Wheelchair Training Does the Pt Use a Wheelchair?: Yes Wheel 50 ft with 2 turns (QC): 2 Wheel 150 ft (QC): 2 Type of Wheelchair: Manual Stairs 1 Step (curb) (QC): 88 4 Steps (QC): 88 12 Steps (QC): 88 Balance Sitting Static: Normal Sitting Dynamic: Normal Picking up an Object (QC): 9 Treatment Functional transfers bed to/from chair; nursing training in transfers of this patient. Assessment/Needs Pt presents with ulcers on his stumps that prohibit prosthesis use. He has gross functional weakness that deems it necessary for assist with all bed mobil tiy and transfers and is unable to care for himself as before. He is participatory and motivated and able to problem solve, but needs much assist with transfers. He will benefit from skilled PT to address bed mobility, transfers and wheelchair mobility to allow him to return home as before. will address gait and standing if appropriate to utilize his prostheses. 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 Nursing Home Goals PT Cylinder Die Machine Operator Goals Time Frame: Aug 21, 2020 Roll Left & Right (QC): 6 Sit to Lying (QC): 6 Lying-Sitting on Side/Bed(QC): 6 Sit to Stand (QC): 88 Chair/Vzb-tj-Knocm Xfer(QC): 6 Toilet Transfer (QC): 6 Car Transfer (QC): 6 Does the Patient Walk: No and Walking Goal NOT indicated Walk 10 feet (QC): 88 Walk 50ft with 2 Turns (QC): 88 Walk 150 ft (QC): 88 Walking 10ft on Uneven Surface: 88 1 Step (curb) (QC): 88 4 Steps (QC): 88 12 Steps (QC): 88 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) Does the Pt use WC or Scooter?: Yes Wheel 50 feet with 2 turns (QC: 6 Type: Manual Wheel 150 feet: 6 Type: Manual PT Plan Problem List Problem List: Activity Tolerance, Functional Strength, Safety, Balance, Transfer, Bed Mobility Treatment/Plan Treatment Plan: Continue Plan of Care Treatment Plan: Bed Mobility, Education, Functional Activity E[place], Functional Strength, Safety, Therapeutic Exercise, Transfers Treatment Duration: Aug 21, 2020 Frequency: At least 5 of 7 days/Wk (IRF) Patient and/or Family Agrees t: Yes Safety Risks/Education Patient Education: Transfer Techniques, Safety Issues Teaching Recipient: Patient Teaching Methods: Demonstration, Discussion Response to Teaching: Reinforcement Needed Discharge Recommendations Therapy Discharge Recommendati: Post Acute PT Time/GCodes Time In: 1130 Time Out: 1145 ([id number]) Total Billed Treatment Time: 40 Total Billed Treatment visit EVM 15 visit FA 25 KELLY KATZ PT Jul 24, 2020 13:13
[2020-07-24] MEDS ORDERED: diphenhydrAMINE 25 MG TAB (BENADRYL) PO PRN ×2 (13:45→14:00)
[2020-07-24] MEDS ORDERED: ONDANSETRON 4 MG (ZOFRAN) ORAL DISSOLVE TAB PO PRN (13:45)
[2020-07-24] MEDS ORDERED: CALCIUM CARBONATE 500 MG (TUMS) TAB.CHEW PO PRN ×2 (13:45→14:00)
[2020-07-24] MEDS ORDERED: DOCUSATE SODIUM 100 MG (COLACE) CAP PO PRN ×2 (13:45→14:00)
[2020-07-24] MEDS ORDERED: FLEET ENEMA ADULT 1 EA BTL PR PRN (13:45)
[2020-07-24] MEDS ORDERED: ALPRAZolam 0.25 MG (XANAX) TAB PO PRN ×2 (13:45→14:00)
[2020-07-24] MEDS ORDERED: LOPERAMIDE 2 MG (IMODIUM) TABLET PO PRN ×2 (13:45→14:00)
[2020-07-24] MEDS ORDERED: BISACODYL 10 MG SUPP (DULCOLAX) PR PRN (13:45)
[2020-07-24] MEDS ORDERED: LACTULOSE SYRUP 10GM/15ML (ENULOSE) 30ML UDC PO PRN (13:45)
[2020-07-24] MEDS ORDERED: ACETAMINOPHEN 500 MG TAB (TYLENOL) PO PRN ×2 (13:45→14:00)
[2020-07-24] MEDS ORDERED: MELATONIN 3 MG TABLET PO PRN ×2 (13:45→14:00)
--- NOTE | 2020-07-24 13:56 | NUR ---
Allevyn sacral patch was placed to coccyx area after pt was transferred from w/c to bed earlier w assist of PT. Noted small open skin tear like area on Lt buttock. Approx dime sized. Instr re: repositioning, turning, shifting weight.
[2020-07-24] MEDS ORDERED: ONDANSETRON 4 MG/2 ML (SDV) Z0FRAN IVP PRN (14:00)
[2020-07-24] MEDS ORDERED: NITROGLYCERIN 0.4 MG SL TABS BTL 25'S SL PRN (14:00)
--- NOTE | 2020-07-24 14:31 | PM&R Post Admission Assessment ---
PM&R Date of Visit: Jul 24, 2020 Time of Visit: 13:00 History of Present Illness CC: Debility: HPI: This is a very complex 75-year-old white male who is known to me from colon cancer resection earlier this year and most recently sent to [facility] as overflow due to COVID-19 hospital admissions at [facility] who was transferred back after several days due to new onset atrial fibrillation requiring cardiology consultation due to aortic stenosis noted on echocardiogram with ejection fraction slightly decreased. Patient was admitted for UTI res istant type expected due to complicated UTI from [facility] catheter maintenance for the past 1 week requiring placement by urology in his outpatient clinic due to special catheter required. Patient ultimately required ICU transfer at [facility] due to increased respiratory wheezing with volume overload and appearance of pneumonia on chest x-ray. Patient became more more complicated with ABG showing hypoxia and then new onset atrial fibrillation with rapid ventricular response required transfer for higher level. Patient underwent cardiology evaluation patient placed on Cardizem and metoprolol along with anticoagulant for stroke prophylaxis and ultimately was diagnosed with C. difficile colitis due to severe diarrhea placed on vancomycin 4 times daily orally with good results and discontinuation of the antibiotics after completing 6 days. Currently he is very debilitated and very weak has a wound on his right below the knee amputation site wound care is monitoring and patient will be given aggressive therapy in order to regain function with the use of bilateral prosthesis due to bilateral below the knee amputations. Previous H&P from 07/18/20: CC: New onset AF w/RVR with PNA, UTI and CHF with moderate aortic stenosis HPI: This is a very complicated 75yoWM who I transferred from [facility] where he was admitted after COVID overflow status from [facility] ER for UTI placed on Vanc and Cef epime after ECHO done in ER which revealed aortic stenosis and did well after admission but required 1 unit of blood for hgb 7.2 but became more complicated due to wheezing and evidence of CHF with elevated wbc of 21 and increased PCT prompting changing Cefepime to Meropenem and maintaining Vanc but then had new onset AF w/RVR requiring cardizem drip and transfer to cardiology care at [facility]. Today he was dx with C diff colitis and placed on Vanc PO QID and Questran TID. Patient appears to be very chronically ill given bilateral BKA's in the past uses prosthesis and colon cancer s/p resection 10/2019 and undergoing chemotherapy by [facility]. Patient denies pain and he is now in NSR. Past Tmwxmwg-Ukvwlh-Xzgnrz Hx Past Med/Social Hx: Reviewed Nursing Past Med/Soc Hx, Reviewed and Corrections made Patient Social History Marrital Status: single Employed/Student: retired Alcohol Use: Denies Use Smoking Status: Never a Smoker 2nd Hand Smoke Exposure: No Recent Hopitalizations: No Immunizations Up To Date Tetanus Booster (TDap): Unknown Date of Pneumonia Vaccine: Jun 08, 2013 Date of Influenza Vaccine: Jun 13, 2020 Seasonal Allergies Seasonal Allergies: No Past Medical History Surgeries: Amputation, Orthopedic, Prostatectomy Respiratory: Pneumonia Cardiac: Atrial Fibrillation (07/18/20 [facility]), Heart Murmur, High Cholesterol, Hypertension aortic stenosis Neurological: Neuropathy, TIA Sexually Transmitted Disease: No HIV/AIDS: No Genitourinary: Benign Prostatic Hyperpl, Bladder Infection, Neurogenic Bladder Musculoskeletal: Amputee Endocrine: Diabetes, Insulin dep Cancer: Colon Did You Recieve Any Treatments: Yes What Type of Treatment Did You: Chemotherapy, Surgical Intervention History of Blood Disorders: No Adverse Reaction to Blood Maki: No (HAS HAD BLOOD WITH NO REACTION) Family History Patient reports no known family medical history. No Pertinent Family Hx Prior Level of Function Bed Mobility: 6 Transfers: 6 Gait: 6 Wheelchair Mobility: 6 Indoor Mobility (Ambulation): Independent Stairs: Independent Occupation: Retired [employer] Current Level of Fuctioning Roll Left to Right: 2 Sit to Lyin Lying to Sitting/Side of Bed: 3 Sit to Stand: 88 (unable to apply prosthesis at this time.) Chair/Und-ab-Xkmzy Xfer: 1 (assist of 2 to scoot into the chair. ) Car Transfer: 88 Does the Patient Walk: No and Walking Goal IS indicated Anticipated Mode of Locomotion: Both Walk 10 feet: 88 Walk 50 ft with 2 Turns: 88 Walk 150 ft: 88 Walking 10ft on uneven surface: 88 Does the Pt Use a Wheelchair: Yes Wheel 50 ft with 2 turns: 2 Wheel 150 ft: 2 Type of Wheelchair: Manual 1 Step (curb): 88 4 Steps: 88 12 Steps: 88 Picking up an Object: 9 PM&R Allergy/Meds/Data Review Allergies Coded Allergies: No Known Drug Allergies (Unverified , 11/11/19) Home Medications Scheduled Clopidogrel Bisulfate (Plavix), 75 MG PO DAILY, (Reported) Insulin NPH Human Isophane (Novolin N), 33 UNITS SQ DAILY, (Reported) Insulin NPH Human Isophane (Novolin N), 20 UNITS SQ 1930, (Reported) Insulin Regular, Human (Novolin R), 6 UNITS SQ DAILY, (Reported) Insulin Regular, Human (Novolin R), 5 UNITS SQ 1930, (Reported) Levofloxacin (Levofloxacin), 500 MG PO DAILY, (Reported) Lisinopril (Lisinopril), 20 MG PO DAILY, (Reported) Simvastatin (Simvastatin), 20 MG PO HS, (Reported) [Bethanechol Chloride], 50 MG PO QID, (Reported) Discontinued Medications Levofloxacin (Levofloxacin), 500 MG PO DAILY Discontinued Reason: Duplicate Order Current Medications Current Medications Reviewed Review of Systems Constitutional: see HPI, malaise, weakness EENTM: no symptoms reported Respiratory: dyspnea on exertion, short of breath Cardiovascular: palpitations Gastrointestinal: no symptoms reported Genitourinary: other (catheter is in place) Musculoskeletal: back pain, joint pain, muscle twitching, muscle weakness, neck pain Skin: no symptoms reported Psychiatric/Neurological: See HPI All Other Systems Reviewed Negative Unless Noted: Yes Physical Exam Physical Exam Vital Signs Vital Signs - First Documented 07/24/20 11:45 Temp 36.2 Pulse 110 Resp 20 B/P (MAP) 105/57 (73) Pulse Ox 95 O2 Delivery Nasal Cannula O2 Flow Rate 2.00 Capillary Refill : Height, Weight, BMI Height: 6'2.00" Weight: 201lbs. 5.0oz. 91.940606sl; 38.78 BMI Method:Stated General Appearance: No Apparent Distress, WD/WN, Chronically ill Eyes: Bilateral Eye Normal Inspection, Bilateral Eye PERRL HEENT: PERRL/EOMI, Normal ENT Inspection, Pharynx Normal Neck: Full Range of Motion, Normal Inspection, Non Tender, Supple, Carotid Bruit Respiratory: Chest Non Tender, Lungs Clear, No Accessory Muscle Use, No Respiratory Distress, Decreased Breath Sounds Cardiovascular: Regular Rate, Rhythm, No Edema, No Gallop, No JVD, No Murmur, Normal Peripheral Pulses, Tachycardia Gastrointestinal: Normal Bowel Sounds, No Organomegaly, No Pulsatile Mass, Non Tender, Soft Back: Normal Inspection, No CVA Tenderness, No Vertebral Tenderness Extremity: Normal Capillary Refill, Normal Inspection, Normal Range of Motion, Non Tender, No Calf Tenderness Neurologic/Psychiatric: Alert, Oriented x3, No Motor/Sensory Deficits, Normal Mood/Affect, Abnormal Gait, Motor Weakness (generalized), Other (bilateral BKA's) Skin: Normal Color, Warm/Dry Lymphatic: No Adenopathy PM&R Medical Assessment & Plan REHAB/MEDICAL ASSESSMENT AND PLAN: REHAB IMPAIRMENT GROUP: Debility ETIOLOGIC DIAGNOSIS: Debility The comorbidities that impact the patients function and/or functional outcome by: advanced age, multisystem complexities, tachycardia with recent new onset AF w/RVR, colon cancer, moore maintained due to severe retention and unable to reinsert catheter until Dr Gray performed it in office with bilateral BKA's REHAB PLAN: The patient is being admitted to our comprehensive inpatient rehabilitation facility and can tolerate the intensity of service consisting of at least: 180 minutes of therapy a day, 5 out of 7 days a week Rehab treatment will consist of: PT OT will focus on regaining function in order to return to living independently at home with niece and help strengthen while preventing falls with bilateral BKA's with use of prosthesis The patient/family has a good understanding of our discharge process and will benefit from an interdisciplinary inpatient rehabilitation program. The patient has potential to make improvement and is in need of at least two of the following multidisciplinary therapies including but not limited to physical, occupational, speech, and prosthetics and orthotics. Additionally the patient will need services from respiratory, nutritional services, wound care, psychology, etc. (Customize this to each patient). Given the patients complex condition and risk of further medical complications, rehabilitation services cannot be safely or effectively provided at a lower level of care such as a snf facility. BARRIERS TO DISCHARGE: Limited mobility with B/L BKA's ESTIMATED LOS: 7 days DISPOSITION: Home RELEVANT CHANGES SINCE PREADMISSION SCREENING: I have compared the patients medical and functional status at the time of the preadmission screening and there are: no changes PROGNOSIS: Good REHABILITATION GOALS: 1. PT OT will focus on regaining function in order to return to living independently at home with niece and help strengthen while preventing falls with bilateral BKA's with use of prosthesis All the above goals were reviewed with the patient and he/she is in agreement. By signing this document, I acknowledge that I have personally performed a full physical examination on this patient within 24 hours of admission to this inpatient rehabilitation facility and have determined the patient to be able to tolerate the above course of treatment at an intensive level for a reasonable period of time. I will be completing a detailed individualized Plan of Care for this patient by day #4 of the patients stay based upon the Preadmission Screen, the Post-Admission Evaluation, and the therapy evaluations. Admission Dx/Comorbidities: (1) Debility ICD Codes: R53.81 - Other malaise (2) Atrial fibrillation with rapid ventricular response ICD Codes: I48.91 - Unspecified atrial fibrillation (3) Urinary tract infection associated with catheterization of urinary tract Status: Acute ICD Codes: T83.511A - Infection and inflammatory reaction due to indwelling urethral catheter, initial encounter; N39.0 - Urinary tract infection, site not specified (4) Diabetes mellitus Status: Chronic ICD Codes: E11.9 - Type 2 diabetes mellitus without complications (5) Colon cancer Status: Chronic ICD Codes: C18.9 - Malignant neoplasm of colon, unspecified (6) Hypertension Status: Chronic ICD Codes: I10 - Essential (primary) hypertension (7) History of TIA (transient ischemic attack) Status: Chronic ICD Codes: Z86.73 - Personal history of transient ischemic attack (TIA), and cerebral infarction without residual deficits (8) Hyperlipidemia Status: Chronic ICD Codes: E78.5 - Hyperlipidemia, unspecified (9) Cardiac murmur ICD Codes: R01.1 - Cardiac murmur, unspecified Assessment/Plan Assessment and Plan Assess & Plan/Chief Complaint Assessment: Debility Chronic bilateral BKA's DM insulin requiring s/p C diff colitis now resolved after Vanc PO Recent UTI Recent PNA Sinus tachycardia Aortic stenosis Systolic dysfunction h/o TIA Colon cancer s/p resection 10/2019 Dr Bautista s/p nephrostomy tubes [facility] Anemia Plan: IRF protocol Monitor stools O2 Insulin Cardiology appreciated YAAKOV SMITH DO Jul 24, 2020 14:31
[2020-07-24 16:24] VITALS: BP 123/58
[2020-07-24] MEDS: RT-ALBUTEROL/IPRATROPIUM 3 ML (DUONEB) VIAL INH SCH ×2 (17:20→19:07)
[2020-07-24] MEDS: BETHANECHOL 25 MG (URECHOLINE) TAB PO SCH ×2 (17:31→21:22)
[2020-07-24] MEDS: inSUlin ASPART (NovoLOG) 1 UNIT/0.01 ML (CHARGE PER UNIT) SC SCH ×2 (17:51→21:23)
--- NOTE | 2020-07-24 19:47 | NUR ---
Pt states that he is a DNR, does not want to be rescuscitated. Notified Dr. Sharma & rec'd orders.
--- NOTE | 2020-07-24 21:05 | NUR ---
Noted redness of distal portion of both stumps, no heat or warmth noted, only redness. Pt denies pain in area. Pt states that he sees Dr. Guillermo as oncologist. Pt has what he calls a wart on posterior Lt leg below knee, asymptomatic.
[2020-07-24] MEDS: DOCUSATE SODIUM 100 MG (COLACE) CAP PO SCH (21:21)
[2020-07-24] MEDS: polyethylene glycoL POWDER 17 GM (MIRALAX) PACK PO SCH (21:21)
[2020-07-24] MEDS: APIXABAN 5 MG (ELIQUIS) TABLET PO SCH (21:21)
[2020-07-24] MEDS: SIMvastatin 20 MG (ZOCOR) TAB PO SCH (21:22)
[2020-07-24] MEDS: SENNA W/DOCUSATE (SENOKOT S) TABLET PO SCH (21:22)
[2020-07-24] MEDS: DAKIN'S 1/2 STRENGTH (0.25%) 473 ML BTL TOP SCH (21:23)
--- NOTE | 2020-07-25 02:33 | NUR ---
Warren is a 75 yo male patient who admitted to ARU yesterday from [facility] unit. Patient has had a noted lengthy hospitalization course resulting in generalized debility. Warren does have a history of bilateral BKA's but was able to be independent prior to hospitalization with prosthetics. Currently Warren is unable to RLE prosthesis due to an ulceration noted to the lateral part of his stump. Dressing changes are being completed. Patient is currently on 2 L NC, which is new this hospitalization. He does have noted pitting edema to all extremities, lower abdominal area, and bilateral hips. He is currently receiving lasix. Patient was previously on contact isolation on fourth floor due to reported CDIFF, however patient had formed stool both Sunday and Sunday. He is not currently in isolation but standard precautions are taking place. Patient is able to report all needs without issues. He is cont of bowel and bladder, currently has a moore cath in place due to urinary retention. Patient is anxious to begin his rehab process and hopefully return home. No further issues noted. This nurse will continue to watch patient throughout the night.
[2020-07-25 05:11] VITALS: BP 118/60
[2020-07-25] MEDS: inSUlin ASPART (NovoLOG) 1 UNIT/0.01 ML (CHARGE PER UNIT) SC SCH ×2 (05:33→11:53)
[2020-07-25] MEDS: BETHANECHOL 25 MG (URECHOLINE) TAB PO SCH ×4 (05:33→21:22)
--- NOTE | 2020-07-25 06:13 | PM&R Progress Note ---
Subjective HPI/CC On Admission Date Seen by Provider: Jul 25, 2020 Time Seen by Provider: 06:20 Subjective/Events-last exam 07/25/20: Patient doing very well Anasarca due to low albumin discussed and he will focus on increasing protein in diet Anemia noted so will add Iron level to labs and likely will need iron infusions No pain reported Stools soft Stopped Questran when he requested it and therapy was completed anyway Checked meds and labs Review of Systems General: Fatigue, Malaise Neurological: Weakness, Incoordination Objective Exam Vital Signs Vital Signs Date Time Temp Pulse Resp B/P (MAP) Pulse Ox O2 Delivery O2 Flow Rate FiO2 07/25/20 12:19 97 07/25/20 09:09 22 107/56 (73) 98 Nasal Cannula 5.00 07/25/20 05:11 36.3 Capillary Refill : Less Than 3 SecondsLess Than 3 Seconds General Appearance: No Apparent Distress, WD/WN, Chronically ill HEENT: PERRL/EOMI, Normal ENT Inspection, Pharynx Normal Neck: Full Range of Motion, Normal Inspection, Non Tender, Supple, Carotid Bruit Respiratory: Chest Non Tender, Lungs Clear, No Accessory Muscle Use, No Respiratory Distress, Decreased Breath Sounds Cardiovascular: Regular Rate, Rhythm, No Edema, No Gallop, No JVD, No Murmur, Normal Peripheral Pulses, Tachycardia Gastrointestinal: Normal Bowel Sounds, No Organomegaly, No Pulsatile Mass, Non Tender, Soft Back: Normal Inspection, No CVA Tenderness, No Vertebral Tenderness Extremity: Normal Capillary Refill, Normal Inspection, Normal Range of Motion, Non Tender, No Calf Tenderness Neurologic/Psychiatric: Alert, Oriented x3, No Motor/Sensory Deficits, Normal Mood/Affect, Abnormal Gait, Motor Weakness (generalized), Other (bilateral BKA's) Skin: Normal Color, Warm/Dry Lymphatic: No Adenopathy Results/Procedures Lab Laboratory Tests 07/25/20 12:43 Patient resulted labs reviewed. FIM Transfers Therapy Code Descriptions/Definitions Functional [place] Measure: 0=Not Assessed/NA 4=Minimal Assistance 1=Total Assistance 5=Supervision or Setup 2=Maximal Assistance 6=Modified [place] 3=Moderate Assistance 7=Complete IndependenceSCALE: Activities may be completed with or without assistive devices. 9-Jdjdfljekq-wygmbon completes the activity by him/herself with no assistance from a helper. 5-Set-up or Clean-up Assistance-helper sets up or cleans up; patient completes activity. [place] assists only prior to or following the activity. 4-Supervision or Touching Assistance-helper provides verbal cues and/or touching/steadying and/or contact guard assistance as patient completes activity. Assistance may be provided throughout the activity or intermittently. 3-Partial/Moderate Assistance-helper does LESS THAN HALF the effort. [place] lifts, holds or supports trunk or limbs, but provides less than half the effort. 2-Substantial/Maximal Assistance-helper does MORE THAN HALF the effort. [place] lifts or holds trunk or limbs and provides more than half the effort. 9-Zyjazrfwn-imtgng does ALL the effort. Patient does none of the effort to complete the activity. Or, the assistance of 2 or more helpers is required for the patient to complete the activity. If activity was not attempted, code reason: 7-Patient Refused. 9-Not Applicable-not attempted and the patient did not perform the activity before the current illness, exacerbation or injury. 10-Not Attempted due to Environmental Limitations-(lack of equipment, weather restraints, etc.). 88-Not Attempted due to Medical Conditions or Safety Concerns. Roll Left to Right (QC): 2 Sit to Lying (QC): 3 Sit to Stand (QC): 88 (unable to apply prosthesis at this time.) Chair/Bhm-fv-Mnxgk Xfer(QC): 1 (assist of 2 to scoot into the chair. ) Car Transfer (QC): 88 Gait Training Does the Patient Walk?: No and Walking Goal IS indicated Walk 10 feet (QC): 88 Walk 50 ft with 2 Turns(QC): 88 Walk 150 ft (QC): 88 Walking 10ft/uneven surface-QC: 88 Wheelchair Training Does the Pt Use a Wheelchair?: Yes Wheel 50 ft with 2 turns (QC): 2 Wheel 150 ft (QC): 2 Type of Wheelchair: Manual Stair Training 1 Step (curb) (QC): 88 4 Steps (QC): 88 12 Steps (QC): 88 Balance Picking up an Object (QC): 9 Assessment/Plan Assessment and Plan Assess & Plan/Chief Complaint Assessment: Debility Chronic bilateral BKA's DM insulin requiring s/p C diff colitis now resolved after Vanc PO Recent UTI Recent PNA Sinus tachycardia Aortic stenosis Systolic dysfunction h/o TIA Colon cancer s/p resection 10/2019 Dr Bautista s/p nephrostomy tubes Spring 2019 [facility] Anemia Plan: IRF protocol Monitor stools O2 Insulin Cardiology appreciated 07/25/20: Add iron level to labs Monitor protein intake Fall risk Monitor tachycardia (1) Debility (2) Atrial fibrillation with rapid ventricular response (3) Urinary tract infection associated with catheterization of urinary tract Status: Acute (4) Diabetes mellitus Status: Chronic (5) Colon cancer Status: Chronic (6) Hypertension Status: Chronic (7) History of TIA (transient ischemic attack) Status: Chronic (8) Hyperlipidemia Status: Chronic (9) Cardiac murmur YAAKOV SMITH DO Jul 25, 2020 06:13
[2020-07-25] MEDS: RT-ALBUTEROL/IPRATROPIUM 3 ML (DUONEB) VIAL INH SCH ×3 (08:13→22:39)
[2020-07-25 09:09] VITALS: BP 107/56
--- NOTE | 2020-07-25 09:12 | NUR ---
RT reported that she increased 02 to 5 L n/c due to decreased sats, see RT intervention, along w current vitals. Pt denies pain, SOA,or needs. Has occas loose cough, prod of clear-white sputum, pt reports. Pt in good spirits, watching tv now. Noted decreased overall edema when compared to yesterday. Pillows to extremities to support & decrease edema, along w soft towel to scrotum to elevate for same reason. Urine is clearer today than yesterday. Instr pt re: increased protein, as recomended by Dr. Sharma this AM when she made rounds.
[2020-07-25] MEDS: CLOPIDOGREL 75 MG (PLAVIX) TABLET PO SCH (09:57)
[2020-07-25] MEDS: APIXABAN 5 MG (ELIQUIS) TABLET PO SCH ×2 (09:57→21:22)
[2020-07-25] MEDS: FUROSEMIDE 40 MG (LASIX) TAB PO SCH (09:57)
[2020-07-25] MEDS: polyethylene glycoL POWDER 17 GM (MIRALAX) PACK PO SCH ×2 (11:34→21:25)
[2020-07-25] MEDS: DOCUSATE SODIUM 100 MG (COLACE) CAP PO SCH ×2 (11:34→21:25)
[2020-07-25] MEDS: DAKIN'S 1/2 STRENGTH (0.25%) 473 ML BTL TOP SCH ×2 (11:35→21:29)
[2020-07-25] MEDS: SENNA W/DOCUSATE (SENOKOT S) TABLET PO SCH ×2 (11:35→21:25)
[2020-07-25 12:55] LABS: HEMOGLOBIN 8.1 g/dL (13.3-17.7); MEAN PLATELET VOLUME 11.5 fL (9.0-12.2); WHITE BLOOD COUNT 14.9 10^3/uL (4.3-11.0)
[2020-07-25 13:19] LABS: ALANINE AMINOTRANSFERASE 17 U/L (0-55); ALKALINE PHOSPHATASE 155 U/L (40-136); BILIRUBIN,TOTAL 0.4 MG/DL (0.1-1.0); BUN/CREATININE RATIO 28; CALCIUM 7.4 MG/DL (8.5-10.1); CARBON DIOXIDE 32 MMOL/L (21-32); CHLORIDE 96 MMOL/L (98-107); CREATININE SERUM 0.71 MG/DL (0.60-1.30); GFR ESTIMATED > 60; GLUCOSE 322 MG/DL (70-105); POTASSIUM 4.5 MMOL/L (3.6-5.0); SODIUM 135 MMOL/L (135-145); TOTAL PROTEIN 4.4 GM/DL (6.4-8.2)
[2020-07-25] MEDS: inSUlin (REGULAR) HUMAN 1 UNIT/0.01 ML (CHARGE PER UNIT) SC SCH ×2 (17:44→21:23)
[2020-07-25 17:55] VITALS: BP 107/55
--- NOTE | 2020-07-25 19:08 | NUR ---
Bedside report received from SHARONA WOO, assume care of pt
--- NOTE | 2020-07-25 20:10 | NUR ---
back to bed Pt able to move from recliner back to bed with minimal help
[2020-07-25] MEDS: SIMvastatin 20 MG (ZOCOR) TAB PO SCH (21:22)
--- NOTE | 2020-07-25 21:22 | NUR ---
pt refused Colace, Miralax & Senokot, fsbs 256 scheduled NovoLog 6 units & Levemir 15 units given
--- NOTE | 2020-07-25 22:10 | NUR ---
dressing change to Rt stump Dakin solution 4x4 then dry 4x4 kerlex & seven wrap
--- NOTE | 2020-07-25 22:39 | NUR ---
Resp unable to come do breathing treatments so this nurse gave pt scheduled breathing treatments
[2020-07-26 05:38] LABS: BASOPHILS % (AUTO) 0 % (0-10); EOSINOPHILS # (AUTO) 0.3 10^3/uL (0.0-0.3); EOSINOPHILS % (AUTO) 2 % (0-10); HEMATOCRIT 27 % (40-54); HEMOGLOBIN 8.1 g/dL (13.3-17.7); LYMPHOCYTES # (AUTO) 0.5 10^3/uL (1.0-4.0); LYMPHOCYTES % (AUTO) 3 % (12-44); MEAN CORPUSCULAR HEMOGLOBIN 27 pg (25-34); MEAN CORPUSCULAR HGB CONC 30 g/dL (32-36); MEAN CORPUSCULAR VOLUME 89 fL (80-99); MONOCYTES # (AUTO) 0.9 10^3/uL (0.0-1.0); MONOCYTES % (AUTO) 6 % (0-12); NEUTROPHILS # (AUTO) 14.1 10^3/uL (1.8-7.8); NEUTROPHILS % (AUTO) 88 % (42-75); PLATELET COUNT 214 10^3/uL (130-400)
--- NOTE | 2020-07-26 05:44 | PM&R Progress Note ---
Subjective HPI/CC On Admission Date Seen by Provider: Jul 26, 2020 Time Seen by Provider: 05:45 Subjective/Events-last exam 07/26/20: Patient improved Less dyspneic Stools are formed No pain reported Third spacing fluid, encouraged protein consumption 07/25/20: Patient doing very well Anasarca due to low albumin discussed and he will focus on increasing protein in diet Anemia noted so will add Iron level to labs and likely will need iron infusions No pain reported Stools soft Stopped Questran when he requested it and therapy was completed anyway Checked meds and labs Review of Systems General: Fatigue Cardiovascular: Edema Neurological: Weakness, Incoordination Objective Exam Vital Signs Vital Signs Date Time Temp Pulse Resp B/P (MAP) Pulse Ox O2 Delivery O2 Flow Rate FiO2 07/27/20 01:00 77 07/26/20 21:05 Nasal Cannula 2.50 07/26/20 18:48 91 07/26/20 16:00 36.2 16 108/55 (72) Capillary Refill : Less Than 3 SecondsLess Than 3 Seconds General Appearance: No Apparent Distress, WD/WN, Chronically ill HEENT: PERRL/EOMI, Normal ENT Inspection, Pharynx Normal Neck: Full Range of Motion, Normal Inspection, Non Tender, Supple, Carotid Bruit Respiratory: Chest Non Tender, Lungs Clear, No Accessory Muscle Use, No Respiratory Distress, Decreased Breath Sounds Cardiovascular: Regular Rate, Rhythm, No Edema, No Gallop, No JVD, No Murmur, Normal Peripheral Pulses, Tachycardia Gastrointestinal: Normal Bowel Sounds, No Organomegaly, No Pulsatile Mass, Non Tender, Soft Back: Normal Inspection, No CVA Tenderness, No Vertebral Tenderness Extremity: Normal Capillary Refill, Normal Inspection, Normal Range of Motion, Non Tender, No Calf Tenderness Neurologic/Psychiatric: Alert, Oriented x3, No Motor/Sensory Deficits, Normal Mood/Affect, Abnormal Gait, Motor Weakness (generalized), Other (bilateral BKA's) Skin: Normal Color, Warm/Dry Lymphatic: No Adenopathy Results/Procedures Lab Patient resulted labs reviewed. FIM Transfers Therapy Code Descriptions/Definitions Functional [place] Measure: 0=Not Assessed/NA 4=Minimal Assistance 1=Total Assistance 5=Supervision or Setup 2=Maximal Assistance 6=Modified [place] 3=Moderate Assistance 7=Complete IndependenceSCALE: Activities may be completed with or without assistive devices. 9-Dizoyibddm-xqpiavc completes the activity by him/herself with no assistance from a helper. 5-Set-up or Clean-up Assistance-helper sets up or cleans up; patient completes activity. [place] assists only prior to or following the activity. 4-Supervision or Touching Assistance-helper provides verbal cues and/or touching/steadying and/or contact guard assistance as patient completes activity. Assistance may be provided throughout the activity or intermittently. 3-Partial/Moderate Assistance-helper does LESS THAN HALF the effort. [place] lifts, holds or supports trunk or limbs, but provides less than half the effort. 2-Substantial/Maximal Assistance-helper does MORE THAN HALF the effort. [place] lifts or holds trunk or limbs and provides more than half the effort. 6-Vnyqalmyw-haohbe does ALL the effort. Patient does none of the effort to complete the activity. Or, the assistance of 2 or more helpers is required for the patient to complete the activity. If activity was not attempted, code reason: 7-Patient Refused. 9-Not Applicable-not attempted and the patient did not perform the activity before the current illness, exacerbation or injury. 10-Not Attempted due to Environmental Limitations-(lack of equipment, weather restraints, etc.). 88-Not Attempted due to Medical Conditions or Safety Concerns. Roll Left to Right (QC): 2 Sit to Lying (QC): 3 Sit to Stand (QC): 88 (unable to apply prosthesis at this time.) Chair/Nfc-ht-Etntg Xfer(QC): 1 (assist of 2 to scoot into the chair. ) Car Transfer (QC): 88 Gait Training Does the Patient Walk?: No and Walking Goal IS indicated Walk 10 feet (QC): 88 Walk 50 ft with 2 Turns(QC): 88 Walk 150 ft (QC): 88 Walking 10ft/uneven surface-QC: 88 Wheelchair Training Does the Pt Use a Wheelchair?: Yes Wheel 50 ft with 2 turns (QC): 2 Wheel 150 ft (QC): 2 Type of Wheelchair: Manual Stair Training 1 Step (curb) (QC): 88 4 Steps (QC): 88 12 Steps (QC): 88 Balance Picking up an Object (QC): 9 Assessment/Plan Assessment and Plan Assess & Plan/Chief Complaint Assessment: Debility Chronic bilateral BKA's DM insulin requiring s/p C diff colitis now resolved after Vanc PO Recent UTI Recent PNA Sinus tachycardia Aortic stenosis Systolic dysfunction h/o TIA Colon cancer s/p resection 10/2019 Dr Bautista s/p nephrostomy tubes Spring 2019 [facility] Anemia Plan: IRF protocol Monitor stools O2 Insulin Cardiology appreciated 07/25/20: Add iron level to labs Monitor protein intake Fall risk Monitor tachycardia 07/26/20: Protein consumption Monitor edema Increased insulin (1) Debility (2) Atrial fibrillation with rapid ventricular response (3) Urinary tract infection associated with catheterization of urinary tract Status: Acute (4) Diabetes mellitus Status: Chronic (5) Colon cancer Status: Chronic (6) Hypertension Status: Chronic (7) History of TIA (transient ischemic attack) Status: Chronic (8) Hyperlipidemia Status: Chronic (9) Cardiac murmur YAAKOV SMITH DO Jul 26, 2020 05:44
[2020-07-26 05:48] LABS: ALBUMIN 2.1 GM/DL (3.2-4.5); CHLORIDE 96 MMOL/L (98-107); POTASSIUM 4.2 MMOL/L (3.6-5.0); SODIUM 137 MMOL/L (135-145)
[2020-07-26 05:49] LABS: CALCIUM 7.3 MG/DL (8.5-10.1)
[2020-07-26 05:50] LABS: GLUCOSE 161 MG/DL (70-105)
[2020-07-26 05:51] LABS: TOTAL PROTEIN 4.7 GM/DL (6.4-8.2)
[2020-07-26 05:52] LABS: BILIRUBIN,TOTAL 0.4 MG/DL (0.1-1.0); CARBON DIOXIDE 33 MMOL/L (21-32)
[2020-07-26 05:54] LABS: ALKALINE PHOSPHATASE 149 U/L (40-136); CREATININE SERUM 0.62 MG/DL (0.60-1.30); GFR ESTIMATED > 60
[2020-07-26 05:55] LABS: BUN/CREATININE RATIO 32
[2020-07-26 05:57] LABS: ALANINE AMINOTRANSFERASE 14 U/L (0-55)
[2020-07-26 06:01] VITALS: BP 121/58
[2020-07-26] MEDS: BETHANECHOL 25 MG (URECHOLINE) TAB PO SCH ×4 (06:50→21:01)
[2020-07-26] MEDS: inSUlin (REGULAR) HUMAN 1 UNIT/0.01 ML (CHARGE PER UNIT) SC SCH ×4 (06:50→21:02)
[2020-07-26] MEDS: APIXABAN 5 MG (ELIQUIS) TABLET PO SCH ×2 (07:57→21:01)
[2020-07-26] MEDS: FUROSEMIDE 40 MG (LASIX) TAB PO SCH (07:57)
[2020-07-26] MEDS: CLOPIDOGREL 75 MG (PLAVIX) TABLET PO SCH (07:57)
[2020-07-26] MEDS: DAKIN'S 1/2 STRENGTH (0.25%) 473 ML BTL TOP SCH ×2 (07:58→21:11)
[2020-07-26] MEDS: RT-ALBUTEROL/IPRATROPIUM 3 ML (DUONEB) VIAL INH SCH ×3 (08:08→18:47)
[2020-07-26] MEDS: SENNA W/DOCUSATE (SENOKOT S) TABLET PO SCH ×2 (09:00→21:24)
[2020-07-26] MEDS: DOCUSATE SODIUM 100 MG (COLACE) CAP PO SCH ×2 (09:00→21:24)
[2020-07-26] MEDS: polyethylene glycoL POWDER 17 GM (MIRALAX) PACK PO SCH ×2 (09:00→21:24)
--- NOTE | 2020-07-26 09:09 | Cardiology Progress Note ---
Subjective Date Seen by Provider: Jul 26, 2020 Time Seen by Provider: 08:45 Subjective/Events-last exam Patient sitting on bedside commode. Denies any chest pain or dyspnea. Objective-Cardiology Exam Last Set of Vital Signs Vital Signs 07/26/20 07/26/20 07/26/20 07/26/20 06:01 06:22 08:08 09:00 Temp 36.4 Pulse 84 Resp 20 B/P (MAP) 121/58 (79) Pulse Ox 91 O2 Delivery Nasal Cannula O2 Flow Rate 2.50 Capillary Refill : Less Than 3 SecondsLess Than 3 Seconds I&O Intake and Output 07/26/20 00:00 Intake Total 1490 ml Output Total 1310 ml Balance 180 ml Intake Oral 1490 ml Output Urine Total 1310 ml # Bowel Movements 2 General: Alert, Oriented X3, Cooperative HEENT: Atraumatic, PERRLA Neck: Supple, No JVD, No Thyromegaly Lungs: Clear to Auscultation, Normal Air Movement Heart: Regular Rate, Normal S1, Normal S2, No Murmurs Abdomen: Normal Bowel Sounds, Soft, No Tenderness, No Hepatosplenomegaly, No Masses Extremities: No Clubbing, No Cyanosis, No Edema, Normal Pulses, No Ten derness/Swelling Skin: No Rashes, No Breakdown, No Significant Lesion Neuro: Normal Speech, Cranial Nerves 3-12 NL Psych/Mental Status: Mental Status NL, Mood NL Results Lab Laboratory Tests 07/26/20 05:13 A/P-Cardiology Admission Diagnosis PAF HTN HLP Assessment/Plan Pneumonia - improving, continue to monitor. UTI - management per Medical services C-diff (+), treated and improved, managed by medical services. Anemia of undetermined etiology, managed by the Medical service Paroxysmal atrial fibrillation (first diagnosed on tele of 07-19-2020) - currently SR Aortic stenosis- Echocardiogram of Jul 14, 2020 showed LVEF 55-65%. Mod to severe aortic stenosis. Peak gradient 55mHg, mean gradient 41 mmHg, valve area 1.0 cm2. PASP 40-45mmHg History of sigmoid colon resection, had adhesion managed in August 2019. Hypertension, controlled, continue to monitor. Hyperlipidemia, continue to monitor. Bilateral BKA secondary to fracture and nonhealing wounds Diabetes mellitus, poorly controlled. History of TIA in 2003 at [facility]. Currently on apixaban stroke prophylaxis Patient was seen and evaluated with Mary, examination performed, management plan was discussed, agree with the current scribed note, I made few changes to the note using Italic font Patient was sitting comfortably, no new complaint Continue to monitor, no change to the current medication Clinical Quality Measures DVT/VTE Risk/Contraindication: Risk Factor Score Per Nursin RFS Level Per Nursing on Admit: 4+=Very High MARY COREA Jul 26, 2020 09:09 LENARD HUDSON MD Jul 26, 2020 13:39
--- NOTE | 2020-07-26 12:03 | ST Cognitive Linguistic Eval ---
Speech Evaluation-General Medical Diagnosis Debility Onset Date: Jul 24, 2020 Therapy Diagnosis Therapy Diagnosis: Cognitive-communication Referral Referring Physician: Dr. Sharma Medical History Pertinent Medical History: DM, Heart Failure, HTN, Neuropathy Reviewed History: Yes Social History Current Living Status: Other Family (niece) Speech PLF-Current Status Prior Level of Function Patient lived at home with his niece who assisted him with his daily needs. Subjective Patient was pleasant and cooperative with the cognitive assessment. Language Eval: Auditory Comprehends Simple Yes/No Ques: Functional Indent/Objects Multiple [place]: Functional Ident/Pics in Multiple [place]: Functional Follows 1-Step Commands: Functional Follows Complex Directions: Functional Follows General Conversations: Functional Language Eval: Verbal Language Completes Spontaneous Greeting: Functional Produces Auto, Serial Info: Functional Imitates Simple Words/Phrases: Functional Word Finding: Functional Requests Basic Needs: Functional States Basic Personal Info: Functional Expresses Complex Ideas: Functional Objective Cognitive Domain Attention: WNL Memory: WNL Problem Solving: Functional Executive Functions: WNL Visuospatial Skills: WNL Composite Severity Rating: Moderate Clock Drawing Severity Rating: WNL Objective Formal/Standardized Tests [facility] Status ([facility]) Results 28/30, within normal range of function Oral Motor/Speech Production Within Normal Limits Impression Patient is a pleasant 75 y/o male who was admitted to the ARU for strengthening. The patient has had a complex medical history this year and as a result has become debilitated. The patient was given the SLUMS with a score of 28/30 obtained. This score is within normal range of function. The patient does not require further ST services at this time. Speech Patient Assess Expression of Ideas/Wants: Expression (4) Understanding Verbal Content: Understands (4) Brief Interview-Mental Status: Yes Repetition of Three Words: Three (3) Temporal Orientation: Year: Correct (3) Temporal Orientation: Month: Accurate within 5 days(2) Temporal Orientation: Day: Correct (1) Recall : Wear to say "Sock": Yes,after cueing (1) Recall : Color: Yes, no cue required (2) Recall : Bed: Yes, no cue required (2) Memory/Recall Ability: Current season, That he or she is in a hsp/hsp unit Speech-Plan Patient/Family Goals Patient/Family Goals: Patient plans returning to his home where he lives with his niece. Treatment Plan Speech Therapy Treatment Plan: Discontinue ST Treatment Duration: Jul 26, 2020 Frequency: 1 time per week Estimated Hrs Per Day: .25 hour per day Rehab Potential: Good Barriers to Learning: None identified Pt/Family Agrees to Plan: Yes Safety Risks/Education Teaching Recipient: Patient Teaching Methods: Discussion Response to Teaching: Verbalize Understanding Education Topics Provided: Safety within his room and communication of wants/needs. Time Speech Therapy Time In: 09:00 Speech Therapy Time Out: 09:15 Total Billed Time: 15 Billed Treatment Time 1, RAQUEL Russell Jul 26, 2020 12:03
--- NOTE | 2020-07-26 12:50 | Physical Therapy Daily Note ---
PT Daily Note-Current Subjective Patient in recliner pre tx, agrees to PT, has no complaints of pain, has swelling in groin, legs, and left arm, nurse observes the swelling, will be co- treating with OT due to poor patient mobility, strength, endurance, balance, positioning and decrease risk of falls, coordinate UE and LE for functional mobility. Appearance Patient in recliner post tx with nurse call, phone, tray, all needs met, legs elevated. Mental Status Patient Orientation: Person, Place, Situation Attachments: Oxygen, [place] Catheter Transfers SCALE: Activities may be completed with or without assistive devices. 8-Fwugewcqyj-afxagtz completes the activity by him/herself with no assistance from a helper. 5-Set-up or Clean-up Assistance-helper sets up or cleans up; patient completes activity. [place] assists only prior to or following the activity. 4-Supervision or Touching Assistance-helper provides verbal cues and/or touching/steadying and/or contact guard assistance as patient completes activity. Assistance may be provided throughout the activity or intermittently. 3-Partial/Moderate Assistance-helper does LESS THAN HALF the effort. [place] lifts, holds or supports trunk or limbs, but provides less than half the effort. 2-Substantial/Maximal Assistance-helper does MORE THAN HALF the effort. [place] lifts or holds trunk or limbs and provides more than half the effort. 5-Fspvtqhhj-pgkowi does ALL the effort. Patient does none of the effort to complete the activity. Or, the assistance of 2 or more helpers is required for the patient to complete the activity. If activity was not attempted, code reason: 7-Patient Refused. 9-Not Applicable-not attempted and the patient did not perform the activity before the current illness, exacerbation or injury. 10-Not Attempted due to Environmental Limitations-(lack of equipment, weather restraints, etc.). 88-Not Attempted due to Medical Conditions or Safety Concerns. Roll Left & Right (QC): 3 Sit to Lying (QC): 3 Lying to Sitting/Side of Bed(Q: 3 Chair/Skv-wa-Aqiml Xfer(QC): 3 (sliding board x4 mod assist) Patient bathed and dressed in recliner, then performed a sliding board transfer to with mod assist, propelled WC to therapy gym with SBA (150'), sliding board transfer to therapy table, sit to supine with min assist, patient states he cannot lay flat due to back pain, supine to sit with min assist, then work on sitting balance (limits of stability training to all sides), seated abdominal training, then sliding board transfer to WC (he got a different one that fits him better), propel back to room and sliding board to recliner. Patient has a pad for his bottom to sit on. Wheelchair Training Does the Pt Use a Wheelchair?: Yes Wheel 50 ft with 2 turns (QC): 4 Wheel 150 ft (QC): 4 Type of Wheelchair: Manual 150'x2 Treatments PT performed bed mobility and transfer training, WC mobility, trunk strengthening and balance, assist with positioning during bathing and dressing, OT worked on bathing and dressing, UE positioning and strengthening during activity. Assessment Current Status: Poor Progress increased swelling, weak UE's PT Short Term Goals Short Term Goals Time Frame: Aug 07, 2020 Sit to lyin Lying to sitting on side of be: 3 Wheel 50ft w/2 turns: 6 Wheel 150 feet: 6 PT Group Home Goals Child Custody Evaluator Goals PT Group Home Goals Time Frame: Aug 21, 2020 Roll Left & Right (QC): 6 Sit to Lying (QC): 6 Lying-Sitting on Side/Bed(QC): 6 Sit to Stand (QC): 88 Chair/Ocz-yq-Qgohy Xfer(QC): 6 Toilet Transfer (QC): 6 Car Transfer (QC): 6 Does the Patient Walk: No and Walking Goal NOT indicated Walk 10 feet (QC): 88 Walk 50ft with 2 Turns (QC): 88 Walk 150 ft (QC): 88 Walking 10ft on Uneven Surface: 88 1 Step (curb) (QC): 88 4 Steps (QC): 88 12 Steps (QC): 88 Picking up an Object (QC): 6 (project mgr) Does the Pt use WC or Scooter?: Yes Wheel 50 feet with 2 turns (QC: 6 Type: Manual Wheel 150 feet: 6 Type: Manual PT Plan Problem List Problem List: Activity Tolerance, Functional Strength, Safety, Balance, Gait, Transfer, Bed Mobility, ROM Treatment/Plan Treatment Plan: Continue Plan of Care Treatment Plan: Bed Mobility, Education, Functional Activity [place], Functional Strength, Safety, Therapeutic Exercise, Transfers Treatment Duration: Aug 21, 2020 Frequency: At least 5 of 7 days/Wk (IRF) Patient and/or Family Agrees t: Yes Safety Risks/Education Patient Education: Transfer Techniques, Correct Positioning, W/C Management, Safety Issues Teaching Recipient: Patient Teaching Methods: Demonstration, Discussion Response to Teaching: Reinforcement Needed Time/GCodes Time In: 1035 Time Out: 1200 Total Billed Treatment Time: 85 Total Billed Treatment 1 visit FA 85' YAAKOV PEDRAZA PT Jul 26, 2020 12:50
--- NOTE | 2020-07-26 15:03 | Occupational Therapy Eval ---
OT Evaluation-General/PLF Medical Diagnosis Admission Date Jul 24, 2020 at 11:40 Medical Diagnosis: Debility Onset Date: Jul 24, 2020 Therapy Diagnosis Therapy Diagnosis: decreased ADL status, weakness Height/Weight Height (Feet): 6 Height (Inches): 2.00 Weight (Pounds): 201 Weight (Ounces): 5.0 Precautions Precautions/Isolations: Fall Prevention, Standard Precautions, Pressure Ulcer Referral Physician: Edith Referral Reason: Evaluation/Treatment Medical History Pertinent Medical History: DM, Heart Failure, HTN, Neuropathy Additional Medical History colon cancer with resection and chemo (10/2019), bilateral BKA, aortic stenosis, TIA, DM Current History new onset AF with RVR with PNA, UTI, CHF with moderate aortic stenosis Social History Home: Single Level Current Living Status: Other Family (niece) Entry Into Home: Ramp ADL-Prior Level of Function SCALE: Activities may be completed with or without assistive devices. 8-Vrmkhshcfe-oymqgjt completes the activity by him/herself with no assistance from a helper. 5-Set-up or Clean-up Assistance-helper sets up or cleans up; patient completes activity. [place] assists only prior to or following the activity. 4-Supervision or Touching Assistance-helper provides verbal cues and/or touching/steadying and/or contact guard assistance as patient completes activity. Assistance may be provided throughout the activity or intermittently. 3-Partial/Moderate Assistance-helper does LESS THAN HALF the effort. [place] lifts, holds or supports trunk or limbs, but provides less than half the effort. 2-Substantial/Maximal Assistance-helper does MORE THAN HALF the effort. [place] lifts or holds trunk or limbs and provides more than half the effort. 7-Ddcuevoiu-mdehzs does ALL the effort. Patient does none of the effort to complete the activity. Or, the assistance of 2 or more helpers is required for the patient to complete the activity. If activity was not attempted, code reason: 7-Patient Refused. 9-Not Applicable-not attempted and the patient did not perform the activity before the current illness, exacerbation or injury. 10-Not Attempted due to Environmental Limitations-(lack of equipment, weather restraints, etc.). 88-Not Attempted due to Medical Conditions or Safety Concerns. ADL PLOF Comments Pt indicates he was independent with all ADLs and functional mobility at OF using BLE prosthesis and cane. Since June, he has been primarily using w/c for functional mobility Self Care: Independent Functional Cognition: Independent DME/Equipment: Bath Chair, Shower DME/Equipment Comments cane, prosthesis BLEs, w/c Drive Self: Yes OT Current Status Subjective Pt agreeable to OT evaluation and then OT/PT cotreat. Pt did not verbalize any pain. Mental Status/Objective Patient Orientation: Person, Place, Time, Situation Attachments: IV, Oxygen Current Glasses/Contacts: Yes (reading) Hearing Aids: No Dentures/Partials: Yes Hand Dominance: Right Upper Extremity ROM WFL, BUE shoulder flexion to approx 140 degrees, he is able to touch back of head with hands. Upper Extremity Coordination WFL Upper Extremity Sensation WFL Upper Extremity Strength grossly 3+/5 BUEs ADL-Treatment Eating (QC): 6 (Pt indicates independent with eating breakfast, able to cut food, open containers, use utensils and bring food to mouth) Oral Hygiene (QC): 5 (set up, pt able to brush teeth at sink, seated.) Shower/Bathe Self (QC): 1 (Pt completed sponge bath at recliner, required 2 person assist to roll side to side in order to wash buttocks. Pt washed all other parts.) Upper Body Dressing (QC): 3 (Min A with managing shirt down trunk, pt able to thread arms and head) Lower Body Dressing (QC): 1 (Assist x2 in order to manage pants up. Pt able to thread BLEs into pants, required 2 person assist to roll side to side in recliner and manage pants up) On/Off Footwear (QC): 88 (Donning of LE prosthesis not attempted due to ulcer on pt's residual limbs) Toileting Hygiene (QC): 1 (Based on clinical judgement, pt would require assistance managing pants up/down and with hygiene.) Other Treatments [id number] OT evaluation. OT educated pt on purpose and benefits of OT, he verbalized understanding. Pt provided information about PLOF and home set up, and participated in UE screen. [id number] OT/PT cotreat. OT/PT cotreat due to skill of 2 clinicians required which a rehabilitation teacher could not perform in order to coordinate UEs/LES and due to pt's limitations in functional strength, functional endurance, and mobility. OT focused on ADLs, UE placement, cues for sequencing and safety while PT focused on LE's, transfers, dynamic sitting balance. Pt completed sponge bath and dressing at recliner, then used slide board to transfer to w/c (mod A). Pt taken to sink where he completed oral hygiene, then self-propelled w/c to therapy gym, SBA. Pt used SB to transfer to therapy mat. Sit to supine, min A. Pt indicates difficulty laying down, transferred supine to sit Min A. In order to increase sitting balance, pt completed seated abdominal training, with functional reaching in all planes, BUEs. Pt transferred back to w/c via SB, then propelled w/c back to his room, SB to recliner. Post cotreat, pt seated in recliner, call light in reach and all needs met. Education OT Patient Education: Correct positioning, Energy conservation, Exercise program, Modified ADL techniques, Progress toward Goal/Update tx plan, Purpose of tx/functional activities, Rehab process, Safety issues, Transfer techniques Teaching Recipient: Patient Teaching Methods: Discussion Response to Teaching: Verbalize Understanding OT Short Term Goals Short Term Goals Time Frame: Aug 11, 2020 Toileting hygiene: 2 Lower body dressin OT Patient Registration Representative Goals Mcc Goals Time Frame: Aug 20, 2020 Eating (QC): 6 Oral Hygiene (QC): 6 Toileting Hygiene (QC): 3 Shower/Bathe Self (QC): 4 Upper Body Dressing (QC): 5 Lower Body Dressing (QC): 4 On/Off Footwear (QC): 88 1=Demonstrate adherence to instructed precautions during ADL tasks. 2=Patient will verbalize/demonstrate understanding of assistive devices/modifications for ADL. 3=Patient will improve strength/tolerance for activity to enable patient to perform ADL's. OT Education/Plan Problem List/Assessment Assessment: Decreased Activ Tolerance, Decreased UE Strength, Impaired Funct Balance, Impaired I ADL's, Impaired Self-Care Skills Pt would benefit from skilled OT in order to increase safety and independence with ADLs, and to increase BUE strength and functional endurance in order to maximize LOF for safe return home. Discharge Recommendations Plan/Recommendations: Continue POC Barriers to Progress Pt's main barrier to progress is being unable to don BLE prosthesis due to ulcer on residual limb. Treatment Plan/Plan of Care Patient would benefit from OT for education, treatment and training to promote independence in ADL's, mobility, safety and/or upper extremity function for ADL's. Plan of Care: ADL Retraining, Functional Mobility, Group Exercise/Act as Ind, Orthotic Fitting/Training, UE Funct Exercise/Act, W/C Management Training Treatment Duration: Aug 20, 2020 Frequency: At least 5 of 7 days/Wk (IRF) Estimated Hrs Per Day: 1.5 hours per day Rehab Potential: Good Time/GCodes Start Time: 10:25 Stop Time: 12:00 Total Time Billed (hr/min): 95 Billed Treatment Time 1, EVM (10'), ADL (30'), FA 4 (55') GRECIA CHANG OT Jul 26, 2020 15:03
--- NOTE | 2020-07-26 15:24 | NUR ---
CM/SS ADMISSION Patient was admitted to ARU July 24 for Debility from [facility] internal referral. Patient was sent to [facility] as overflow due to [facility] Covid19 hospital admissions and transferred back to [facility] due to increased acuity. He is medically complex with comorbidities, in part, afib with RVR, UTI, IDDM, colon cancer with resection 10/2019 and current chemotherapy, HTN, history of TIA, bilateral BKA's with bilateral prosthesis, nephrostomy tubes Spring 2019 Supriya Baron, s/p C diff colitis now resolved. 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 His goal is to return home as before where he indicates he was able to bathe himself, ambulate, make his own meals. PCP: Dr. Dewayne Andre and Minal Guillen APRN, [facility], [place], [place] PH: [phone] FX: [phone] PHARMACY: [facility] primarily. Patient may be able to access [facility] pharmacy services with advance notice. INSURANCE: Medicare, [employer]. Patient stated he does not have VA benefits for healthcare. DME: Has standard walker, wheelchair, custom ramp, walk in shower with seat, shower wand. BARRIERS TO DISCHARGE: Patient's plan is to return home, his overall condition will be restrepo to his success in his previous environment. Positively, his niece resides with him and can assist. He indicates financial hardship and that if there are new Rx he will not be able to afford them. CONTACTS: Blanquita Chaney, Niece [address] [place] [address] Patient has no children and states there are no other contact persons. Patient understands the purpose and process of the weekly patient care conference and that his first review is Tuesday, July 28, 2020.
[2020-07-26 16:00] VITALS: BP 108/55
--- NOTE | 2020-07-26 17:02 | NUR ---
"RD ASSESSMENT PMHx: pneumonia; hypercholesterolemia; HTN; TIA; BPH; amputation (bilateral BKA); DM; CA(colon); COVID-19 PT INTERACTION: Pt was awake and pleasant during dietary consult for protein intake. Pt states current appetite is pretty good. Note avg PO intake 100% x2d, per chart review. Pt states no recent issues with n/v/c/d since last assessment. Note last BM was 07/25, and pt currently on bowel regimen of senna BID, and miralax BID, per chart review. Note presence of wound (R lateral stump), per chart review. Note abnormal lab values of Pro 4.7 (low); and alb 2.1 (low), per chart review. ABNORMAL NUTRITION-RELATED LAB VALUES LOW: Cl 96; Ca 7.3; Pro 4.7; alb 2.1; HIGH: Est. kcal needs: 7698-2693 kcal | 15-18 kcal/kg Est. Pro needs: 120-140 g Pro | 1.2-1.4 g Pro/kg (for wounds) PES STATEMENT: Inadequate protein intake (NI-5.6.1) related to increased protein needs as evidenced by presence of wound (R lateral stump). INTERVENTION: Continue with current diet order of CHO 75g/m 1snack diet. Continue with current supplementation order of Ensure Enlive TID (). Provides 350 kcal and 20 g Pro per serving, for perceived benefit to wound healing. Encouraged pt to eat when able. Will continue to follow and reassess as pt needs, intake, and status change. Shaneka Jimenes, RD LD [phone] cell"
--- NOTE | 2020-07-26 19:05 | NUR ---
Bedside report received from BARBARA WOO, assume care of pt
[2020-07-26] MEDS: SIMvastatin 20 MG (ZOCOR) TAB PO SCH (21:01)
--- NOTE | 2020-07-26 21:02 | NUR ---
Pt refused Colace, Miralax & Senokot, fsbs 166 scheduled NovoLog 6 units & Levemir 15 units given
--- NOTE | 2020-07-26 21:15 | NUR ---
Dressing change to RT stump with Dakin 4x4, kerlex wrap & seven wraps, tolerated well, encouraged pt to do IS q 1-2 hrs
--- NOTE | 2020-07-27 05:15 | Individualized Plan of Care ---
Individualized Plan of Care Rehab Nursing IPOC Order Admission Date Jul 24, 2020 at 11:40 Current Orders Orders Admission Order(Inpt,Obs,Sdc) (07/23/20 18:47) Vital Signs: Per Unit Policy ( 08,16,00 (07/23/20 18:47) Master Fire Control Technician-Inpt Rehab Con (07/23/20 18:47) Rehab Nursing Orders-Ipoc (07/23/20 18:47) Physical Therapy Rehab Orders (07/23/20 18:47) Occupational Therapy Rehab Ord (07/23/20 18:47) Speech Therapy Rehab Orders (07/23/20 18:47) Intake & Output 06,14,22 (07/23/20 18:47) Precautions (Aru) (07/23/20 18:47) Rehab-Intensity Of Therapy (07/23/20 18:47) Initiate Admission Nursing Pro .admission (07/23/20 18:47) Acetaminophen Tablet (Tylenol Tablet) (07/23/20 19:00) Alprazolam Tablet (Xanax Tablet) (07/23/20 19:00) Calcium Carbonate Chew Tablet (Antacid C (07/23/20 19:00) Diphenhydramine Tablet (Benadryl Tablet) (07/23/20 19:00) Docusate Sodium Capsule (Colace Capsule) (07/23/20 21:00) Docusate Sodium Capsule (Colace Capsule) (07/23/20 19:00) Bisacodyl Suppository (Dulcolax Supposit (07/23/20 19:00) Lactulose Oral Solution (Enulose Oral So (07/23/20 19:00) Na Phos/Na Biphos Enema (Fleet Enema Chalo (07/23/20 19:00) Guaifenesin/Codeine Syrup (Robitussin Ac (07/23/20 19:00) Loperamide Tablet (Imodium Tablet) (07/23/20 19:00) Melatonin Tablet (Melatonin Tablet) (07/23/20 19:00) Polyethylene Glycol Powder Pkt (Miralax (07/23/20 21:00) Ondansetron Oral Dissolve Tab (Zofran (07/23/20 19:00) Senna S Tablet (Senokot S Tablet) (07/23/20 21:00) Initiate Admission Nursing Pro .admission (07/23/20 18:47) Admission Arrival Bed Request (07/24/20 11:52) Patient Visit (07/24/20 ) Pt Eval Moderate Complexity (07/24/20 ) Patient Visit (07/24/20 ) Functional Activities, Ea 15 (07/24/20 ) Docusate Sodium Capsule (Colace Capsule) (07/24/20 13:45) Bisacodyl Suppository (Dulcolax Supposit (07/24/20 13:45) Lactulose Oral Solution (Enulose Oral So (07/24/20 13:45) Na Phos/Na Biphos Enema (Fleet Enema Chalo (07/24/20 13:45) Guaifenesin/Codeine Syrup (Robitussin Ac (07/24/20 13:45) Polyethylene Glycol Powder Pkt (Miralax (07/24/20 13:45) Ondansetron Oral Dissolve Tab (Zofran (07/24/20 13:45) Senna S Tablet (Senokot S Tablet) (07/24/20 13:45) Accucheck Achs ACHS (07/24/20 13:53) Dressing Order (Intervention) BID (07/24/20 13:53) Nursing Communication (Order) (07/24/20 13:53) Telemetry (07/24/20 13:53) Alprazolam Tablet (Xanax Tablet) (07/24/20 14:00) Acetaminophen Tablet (Tylenol Tablet) (07/24/20 14:00) Albuterol/Ipra Inhalation Soln (Duoneb I (07/24/20 14:00) Apixaban Tablet (Eliquis Tablet) (07/24/20 21:00) Bethanechol Tablet (Urecholine Tablet) (07/24/20 16:00) Calcium Carbonate Chew Tablet (Antacid C (07/24/20 14:00) Clopidogrel Tablet (Plavix Tablet) (07/25/20 09:00) Docusate Sodium Capsule (Colace Capsule) (07/24/20 14:00) Furosemide Tablet (Lasix Tablet) (07/25/20 09:00) Loperamide Tablet (Imodium Tablet) (07/24/20 14:00) Melatonin Tablet (Melatonin Tablet) (07/24/20 14:00) Nitroglycerin 0.4 Mg Btl 25's (Nitrostat (07/24/20 14:00) Ondansetron Injection (Zofran Injectio (07/24/20 14:00) Simvastatin Tablet (Zocor Tablet) (07/24/20 21:00) Sodium Hypochlorite 0.25% Soln (Dakin's (07/24/20 21:00) Diltiazem Cd 24 Hr Capsule (Cardizem Cd (07/25/20 09:00) Diphenhydramine Tablet (Benadryl Tablet) (07/24/20 14:00) Insulin Aspart (Novolog) (Novolog (Charg (07/24/20 16:00) Metoprolol Succinate (Xl) Tab (Toprol Xl (07/25/20 09:00) Consult Cardiology (07/24/20 13:53) Consult Wound Care Physician (07/24/20 13:53) Mat Initiate Protocol (07/24/20 13:53) Svn Small Volume Nebulizer (07/24/20 13:53) Telemetry Nursing Assessment ( (07/24/20 13:53) Svn Small Volume Nebulizer (07/24/20 13:53) Cho 75g/M 1snack (21-2400 Jay) (07/24/20 Lunch) Code/Resuscitation (07/24/20 19:46) Ensure Enlive (07/25/20 Breakfast) Ambulate 08,12,20 (07/24/20 20:42) Sequential Compression Device Q4H (07/24/20 20:42) Dvt/Vte Risk - Notifiy Physici Q4H (07/24/20 20:42) Cbc No Diff (07/25/20 06:12) Comprehensive Metabolic Panel (07/25/20 06:12) Dietary Consult (07/25/20 09:17) Iron Test (Fe) (07/25/20 15:38) Insulin Determir (Per Unit) (Levemir (Pe (07/25/20 21:00) Insulin (Regular) Human (Novolin R (Per (07/25/20 16:00) Cbc With Automated Diff (07/26/20 06:00) Comprehensive Metabolic Panel (07/26/20 06:00) Speech Sound Lang Comp (07/26/20 ) Patient Visit (07/26/20 ) Functional Activities, Ea 15 (07/26/20 ) Rehab Nursing Orders: Ongoing Assess. of Cognitive Status, Ongoing Assess. of Function Status, Bladder Management, Bladder Scan, Bladder Training, Bowel Management, Bowel Training, Disease Management & Educaiton, DVT Prophylaxis, Fall Prevention, Fluid/Electrolyte/Nutrition Mgmt, Infection Prevention, Medication Management & Education, Management of Risks & Complications, Management of Skin Intergrity, Nutrition Management, Pain Management, Patient/Family Support, Safety Management, Wound Management Intensity of Therapy to be met Patient to be seen: Min.3h per day/5 of 7d PT IPOC Problem List: Activity Tolerance, Functional Strength, Safety, Balance, Gait, Transfer, Bed Mobility, ROM Treatment Plan: Continue Plan of Care Bed Mobility, Education, Functional Activity Ely, Functional Strength, Safety, Therapeutic Exercise, Transfers Treatment Duration: Aug 21, 2020 Frequency: At least 5 of 7 days/Wk (IRF) Estimated Hrs Per Day: 1 hour per day OT IPOC Problems: Decreased Activ Tolerance, Decreased UE Strength, Impaired Funct Balance, Impaired I ADL's, Impaired Self-Care Skills OT Treatment, Training and Edu: Yes OT Problems Pt would benefit from skilled OT in order to increase safety and independence with ADLs, and to increase BUE strength and functional endurance in order to maximize LOF for safe return home. Plan of Care: ADL Retraining, Functional Mobility, Group Exercise/Act as Ind, Orthotic Fitting/Training, UE Funct Exercise/Act, W/C Management Training Treatment Duration: Aug 20, 2020 Frequency: At least 5 of 7 days/Wk (IRF) Estimated Hrs Per Day: 1.[address] IPOC Speech Therapy Treatment Plan: Discontinue ST Treatment Duration: Jul 26, 2020 Frequency: 1 time per week Estimated Hrs Per Day: .25 hour per day Master Fire Control Technician/Case Mgmt Master Fire Control Technician/Case Managemen: Discharge Planning Dietitian/Labor Contractor Dietitian/Labor Contractor to monitor nutritional status and make changes and/or recommendations as needed and work with speech pathology on dietary upgrades as the occur. Physician IPOC Medical Issues being managed closely and that require the 24 hour availability of a physician: Recent critical illness with AF w/RVR and chronic aortic stenosis along with PNA and C diff will be in need of close monitoring for decompensation Medical Issues: Bowel/Bladder Function, DVT Prophylaxis, Falls Precautions, Fluid/Electrolyte/Nutrition Balance, Infection Protection, Pain Management, Wound Care Brief Synthesis of Preadmission Screen, Post-Admission Evaluation, and Therapy Evaluations: PT OT will focus on regaining function with ambulation with bilateral prosthesis and work on fall risk prevention and increasing stamina with lung function and exercise. Medical Prognosis: Good Anticipated Length of Stay: 10 days YAAKOV SMITH DO Jul 27, 2020 05:15
[2020-07-27 05:40] VITALS: BP 109/61
[2020-07-27] MEDS: inSUlin (REGULAR) HUMAN 1 UNIT/0.01 ML (CHARGE PER UNIT) SC SCH ×4 (06:43→21:17)
[2020-07-27] MEDS: BETHANECHOL 25 MG (URECHOLINE) TAB PO SCH ×4 (06:43→21:16)
[2020-07-27] MEDS: RT-ALBUTEROL/IPRATROPIUM 3 ML (DUONEB) VIAL INH SCH ×3 (07:22→16:26)
[2020-07-27 07:52] VITALS: BP 125/58
[2020-07-27] MEDS: CLOPIDOGREL 75 MG (PLAVIX) TABLET PO SCH (07:56)
[2020-07-27] MEDS: guaiFENesin/CODEINE (ROBITUSSIN AC) 10ML UDC PO PRN ×2 (07:56→21:16)
[2020-07-27] MEDS: FUROSEMIDE 40 MG (LASIX) TAB PO SCH (07:57)
[2020-07-27] MEDS: DAKIN'S 1/2 STRENGTH (0.25%) 473 ML BTL TOP SCH ×2 (07:57→21:23)
[2020-07-27] MEDS: APIXABAN 5 MG (ELIQUIS) TABLET PO SCH ×2 (07:57→21:16)
--- NOTE | 2020-07-27 08:13 | Cardiology Progress Note ---
Subjective Date Seen by Provider: Jul 27, 2020 Time Seen by Provider: 08:00 Subjective/Events-last exam Patient sitting up in chair, c/o increased peripheral edema. Denies any chest pain Review of Systems General: No Chills, No Night Sweats, No Fatigue, No Malaise, No Appetite, No Other HEENT: No Head Aches, No Visual Changes, No Eye Pain, No Ear Pain, No Dysphasia, No Sinus Congestion, No Post Nasal Drip, No Sore Throat, No Other Pulmonary: No Dyspnea, No Cough, No Pleuritic Chest Pain, No Other Cardiovascular: Edema; No: Chest Pain, Palpitations, Orthopnea, Paroxysmal Noc. Dyspnea, Lt Headedness, Other Objective-Cardiology Exam Last Set of Vital Signs Vital Signs 07/27/20 07/27/20 07/27/20 07/27/20 05:40 07:22 07:52 09:00 Temp 36.2 Pulse 77 Resp 20 B/P (MAP) 125/58 (80) Pulse Ox 90 O2 Delivery Nasal Cannula O2 Flow Rate 2.50 Capillary Refill : Less Than 3 SecondsLess Than 3 Seconds I&O Intake and Output 07/27/20 00:00 Intake Total 1390 ml Output Total 1175 ml Balance 215 ml Intake Oral 1390 ml Output Urine Total 1175 ml # Bowel Movements 1 General: Alert, Oriented X3, Cooperative HEENT: Atraumatic, PERRLA Neck: Supple, No JVD, No Thyromegaly Lungs: Clear to Auscultation, Normal Air Movement Heart: Regular Rate, Normal S1, Normal S2, No Murmurs Abdomen: Normal Bowel Sounds, Soft, No Tenderness, No Hepatosplenomegaly, No Masses Extremities: No Clubbing, No Cyanosis, No Edema, Normal Pulses, No Tenderness/Swelling Skin: No Rashes, No Breakdown, No Significant Lesion Neuro: Normal Speech, Cranial Nerves 3-12 NL Psych/Mental Status: Mental Status NL, Mood NL A/P-Cardiology Admission Diagnosis PAF HTN HLP Assessment/Plan Pneumonia - improving, continue to monitor. UTI - management per Medical services C-diff (+), treated and improved, managed by medical services. Anemia of undetermined etiology, managed by the Medical service Paroxysmal atrial fibrillation/flutter (first diagnosed on tele of 07-19-2020) - telemetry showing atrial flutter this morning, rate controlled. Maintained on Cardizem, Toprol XL, Amiodarone. Continue to monitor. Aortic stenosis- Echocardiogram of Jul 14, 2020 showed LVEF 55-65%. Mod to severe aortic stenosis. Peak gradient 55mHg, mean gradient 41 mmHg, valve area 1.0 cm2. PASP 40-45mmHg History of sigmoid colon resection, had adhesion managed in August 2019. Hypertension, controlled, continue to monitor. Hyperlipidemia, continue to monitor. Peripheral edema, continue to diurese. Bilateral BKA secondary to fracture and nonhealing wounds Diabetes mellitus, poorly controlled. History of TIA in 2003 at [facility]. Currently on apixaban stroke prophylaxis Patient was seen and evaluated with Mary, examination performed, management plan was discussed, agree with the current scribed note, I made few changes to the note using Italic font Patient was seen and evaluated, having mild pedal edema, which give additional dose of Zaroxolyn Continue to monitor blood pressure and electrolytes Clinical Quality Measures DVT/VTE Risk/Contraindication: Risk Factor Score Per Nursin RFS Level Per Nursing on Admit: 4+=Very High MARY COREA Jul 27, 2020 08:13 LENARD HUDSON MD Jul 27, 2020 11:50
[2020-07-27] MEDS ORDERED: METOLAZONE 5 MG (ZAROXOLYN) TAB PO NR (08:45)
[2020-07-27] MEDS: DOCUSATE SODIUM 100 MG (COLACE) CAP PO SCH ×2 (09:00→21:16)
[2020-07-27] MEDS: polyethylene glycoL POWDER 17 GM (MIRALAX) PACK PO SCH ×2 (09:52→21:16)
[2020-07-27] MEDS: SENNA W/DOCUSATE (SENOKOT S) TABLET PO SCH ×2 (09:55→21:16)
--- NOTE | 2020-07-27 10:11 | PM&R Progress Note ---
Subjective HPI/CC On Admission Date Seen by Provider: Jul 27, 2020 Time Seen by Provider: 10:30 Subjective/Events-last exam 07/27/20: Pt still with third spacing fluid Glucose is 85 will adjust insulin down Dr. Li gave Yamil to try to get rid of all the fluid Cardioversion planned for the morning so will be NPO after midnight IS use will be maintained 07/26/20: Patient improved Less dyspneic Stools are formed No pain reported Third spacing fluid, encouraged protein consumption 07/25/20: Patient doing very well Anasarca due to low albumin discussed and he will focus on increasing protein in diet Anemia noted so will add Iron level to labs and likely will need iron infusions No pain reported Stools soft Stopped Questran when he requested it and therapy was completed anyway Checked meds and labs Review of Systems General: Fatigue Pulmonary: Dyspnea, Cough Cardiovascular: Edema Neurological: Weakness, Incoordination Objective Exam Vital Signs Vital Signs Date Time Temp Pulse Resp B/P (MAP) Pulse Ox O2 Delivery O2 Flow Rate FiO2 07/27/20 21:18 Nasal Cannula 3.00 07/27/20 19:00 91 07/27/20 16:26 90 07/27/20 16:00 36.2 20 110/59 (76) Capillary Refill : Less Than 3 SecondsLess Than 3 Seconds General Appearance: No Apparent Distress, WD/WN, Chronically ill HEENT: PERRL/EOMI, Normal ENT Inspection, Pharynx Normal Neck: Full Range of Motion, Normal Inspection, Non Tender, Supple, Carotid Bruit Respiratory: Chest Non Tender, Lungs Clear, No Accessory Muscle Use, No Respiratory Distress, Decreased Breath Sounds Cardiovascular: Regular Rate, Rhythm, No Edema, No Gallop, No JVD, No Murmur, Normal Peripheral Pulses, Tachycardia Gastrointestinal: Normal Bowel Sounds, No Organomegaly, No Pulsatile Mass, Non Tender, Soft Back: Normal Inspection, No CVA Tenderness, No Vertebral Tenderness Extremity: Normal Capillary Refill, Normal Inspection, Normal Range of Motion, Non Tender, No Calf Tenderness Neurologic/Psychiatric: Alert, Oriented x3, No Motor/Sensory Deficits, Normal Mood/Affect, Abnormal Gait, Motor Weakness (generalized), Other (bilateral BKA's) Skin: Normal Color, Warm/Dry Lymphatic: No Adenopathy Results/Procedures Lab Patient resulted labs reviewed. FIM Transfers Therapy Code Descriptions/Definitions Functional [place] Measure: 0=Not Assessed/NA 4=Minimal Assistance 1=Total Assistance 5=Supervision or Setup 2=Maximal Assistance 6=Modified [place] 3=Moderate Assistance 7=Complete IndependenceSCALE: Activities may be completed with or without assistive devices. 8-Nxfdegjjmp-vunlcip completes the activity by him/herself with no assistance from a helper. 5-Set-up or Clean-up Assistance-helper sets up or cleans up; patient completes activity. [place] assists only prior to or following the activity. 4-Supervision or Touching Assistance-helper provides verbal cues and/or touching/steadying and/or contact guard assistance as patient completes activity. Assistance may be provided throughout the activity or intermittently. 3-Partial/Moderate Assistance-helper does LESS THAN HALF the effort. [place]ph[place] lifts, holds or supports trunk or limbs, but provides less than half the effort. 2-Substantial/Maximal Assistance-helper does MORE THAN HALF the effort. Jbphh lifts or holds trunk or limbs and provides more than half the effort. 2-Ggvekjxjy-ptpvqm does ALL the effort. Patient does none of the effort to complete the activity. Or, the assistance of 2 or more helpers is required for the patient to complete the activity. If activity was not attempted, code reason: 7-Patient Refused. 9-Not Applicable-not attempted and the patient did not perform the activity before the current illness, exacerbation or injury. 10-Not Attempted due to Environmental Limitations-(lack of equipment, weather restraints, etc.). 88-Not Attempted due to Medical Conditions or Safety Concerns. Roll Left to Right (QC): 3 Sit to Lying (QC): 3 Sit to Stand (QC): 88 (unable to apply prosthesis at this time.) Chair/Zdv-gy-Lqvqr Xfer(QC): 3 (sliding board x4 mod assist) Car Transfer (QC): 88 Gait Training Does the Patient Walk?: No and Walking Goal IS indicated Walk 10 feet (QC): 88 Walk 50 ft with 2 Turns(QC): 88 Walk 150 ft (QC): 88 Walking 10ft/uneven surface-QC: 88 Wheelchair Training Does the Pt Use a Wheelchair?: Yes Wheel 50 ft with 2 turns (QC): 4 Wheel 150 ft (QC): 4 Type of Wheelchair: Manual Stair Training 1 Step (curb) (QC): 88 4 Steps (QC): 88 12 Steps (QC): 88 Balance Picking up an Object (QC): 9 ADL-Treatment Eating (QC): 6 (Pt indicates independent with eating breakfast, able to cut food, open containers, use utensils and bring food to mouth) Oral Hygiene (QC): 5 (set up, pt able to brush teeth at sink, seated.) Shower/Bathe Self (QC): 1 (Pt completed sponge bath at recliner, required 2 person assist to roll side to side in order to wash buttocks. Pt washed all other parts.) Upper Body Dressing (QC): 3 (Min A with managing shirt down trunk, pt able to thread arms and head) Lower Body Dressing (QC): 1 (Assist x2 in order to manage pants up. Pt able to thread BLEs into pants, required 2 person assist to roll side to side in recliner and manage pants up) On/Off Footwear (QC): 88 (Donning of LE prosthesis not attempted due to ulcer on pt's residual limbs) Toileting Hygiene (QC): 1 (Based on clinical judgement, pt would require assistance managing pants up/down and with hygiene.) Assessment/Plan Assessment and Plan Assess & Plan/Chief Complaint Assessment: Debility New onset AF w/RVR scheduled for cardioversion 07/28/20 Chronic bilateral BKA's DM insulin requiring s/p C diff colitis now resolved after Vanc PO Recent UTI Recent PNA Sinus tachycardia Aortic stenosis Systolic dysfunction h/o TIA Colon cancer s/p resection 10/2019 Dr Bautista s/p nephrostomy tubes Spring 2019 [facility] Anemia Anasarca Plan: IRF protocol Monitor stools O2 Insulin Cardiology appreciated 07/25/20: Add iron level to labs Monitor protein intake Fall risk Monitor tachycardia 07/26/20: Protein consumption Monitor edema Increased insulin 07/27/20: Diuresis Cardioversion Monitor closely Check CXR and labs and PCT (1) Debility (2) Atrial fibrillation with rapid ventricular response (3) Urinary tract infection associated with catheterization of urinary tract Status: Acute (4) Diabetes mellitus Status: Chronic (5) Colon cancer Status: Chronic (6) Hypertension Status: Chronic (7) History of TIA (transient ischemic attack) Status: Chronic (8) Hyperlipidemia Status: Chronic (9) Cardiac murmur YAAKOV SMITH DO Jul 27, 2020 10:11
--- NOTE | 2020-07-27 11:54 | Physical Therapy Daily Note ---
PT Daily Note-Current Subjective Patient in recliner pre tx, agrees to PT, has no complaints of pain at rest. Patient continues to have significant swelling in both legs and left arm. Will be co-treating with OT due to poor patient mobility, strength, endurance, poor sitting and dynamic balance, safety and decrease risk of falling, coordinate UE and LE during activity. Appearance Patient in recliner post tx with nurse call, phone ,tray, all needs met. Mental Status Patient Orientation: Person, Place, Situation Attachments: Oxygen, Rosales Catheter Transfers SCALE: Activities may be completed with or without assistive devices. 0-Cqcmmrimdh-weqtemb completes the activity by him/herself with no assistance from a helper. 5-Set-up or Clean-up Assistance-helper sets up or cleans up; patient completes activity. [place] assists only prior to or following the activity. 4-Supervision or Touching Assistance-helper provides verbal cues and/or touching/steadying and/or contact guard assistance as patient completes activity. Assistance may be provided throughout the activity or intermittently. 3-Partial/Moderate Assistance-helper does LESS THAN HALF the effort. [place] lifts, holds or supports trunk or limbs, but provides less than half the effort. 2-Substantial/Maximal Assistance-helper does MORE THAN HALF the effort. [place] lifts or holds trunk or limbs and provides more than half the effort. 1-Ioxcymxas-lvpcok does ALL the effort. Patient does none of the effort to complete the activity. Or, the assistance of 2 or more helpers is required for the patient to complete the activity. If activity was not attempted, code reason: 7-Patient Refused. 9-Not Applicable-not attempted and the patient did not perform the activity before the current illness, exacerbation or injury. 10-Not Attempted due to Environmental Limitations-(lack of equipment, weather restraints, etc.). 88-Not Attempted due to Medical Conditions or Safety Concerns. Chair/Kvn-ia-Mnyju Xfer(QC): 3 Sliding board transfer min/mod assist, he performed it 4 times, to and from recliner and to and from therapy table. Wheelchair Training Does the Pt Use a Wheelchair?: Yes Wheel 50 ft with 2 turns (QC): 4 Wheel 150 ft (QC): 4 Type of Wheelchair: Manual SBA, slow Exercises Seated activities: limits of stability training to all sides, low back and ab strengthening, seated balance exercise hitting balloon. Treatments PT worked on transfers, WC mobility, sitting balance and strengthening, OT worked on dressing (lowers), sitting balance, UE positioning and safety during activity. Assessment Current Status: Poor Progress No change in mobility yet. Patient has a hard time with sliding board transfers due to UE weakness PT Short Term Goals Short Term Goals Time Frame: Aug 07, 2020 Sit to lyin Lying to sitting on side of be: 3 Wheel 50ft w/2 turns: 6 Wheel 150 feet: 6 PT Esl Professor Goals Esl Professor Goals PT Esl Professor Goals Time Frame: Aug 21, 2020 Roll Left & Right (QC): 6 Sit to Lying (QC): 6 Lying-Sitting on Side/Bed(QC): 6 Sit to Stand (QC): 88 Chair/Bds-yz-Gbyfs Xfer(QC): 6 Toilet Transfer (QC): 6 Car Transfer (QC): 6 Does the Patient Walk: No and Walking Goal NOT indicated Walk 10 feet (QC): 88 Walk 50ft with 2 Turns (QC): 88 Walk 150 ft (QC): 88 Walking 10ft on Uneven Surface: 88 1 Step (curb) (QC): 88 4 Steps (QC): 88 12 Steps (QC): 88 Picking up an Object (QC): 6 (outpatient surgery rn) Does the Pt use WC or Scooter?: Yes Wheel 50 feet with 2 turns (QC: 6 Type: Manual Wheel 150 feet: 6 Type: Manual PT Plan Problem List Problem List: Activity Tolerance, Functional Strength, Safety, Balance, Gait, Transfer, Bed Mobility, ROM Treatment/Plan Treatment Plan: Continue Plan of Care Treatment Plan: Bed Mobility, Education, Functional Activity [place], Functional Strength, Safety, Therapeutic Exercise, Transfers Treatment Duration: Aug 21, 2020 Frequency: At least 5 of 7 days/Wk (IRF) Estimated Hrs Per Day: 1 hour per day Patient and/or Family Agrees t: Yes Safety Risks/Education Patient Education: Transfer Techniques, Correct Positioning, W/C Management, Safety Issues Teaching Recipient: Patient Teaching Methods: Demonstration, Discussion Response to Teaching: Reinforcement Needed Time/GCodes Time In: 1100 Time Out: 1200 Total Billed Treatment Time: 60 Total Billed Treatment 1 visit EX 30' FA 30' co-treated with OT for 60' YAAKOV PEDRAZA PT Jul 27, 2020 11:54
--- NOTE | 2020-07-27 13:18 | Occupational Ther Daily Note ---
OT Current Status-Daily Note Subjective Pt agreeable to OT tx. Swelling noted in BUE, especially LUE. ADL-Treatment Therapy Code Descriptions/Definitions Functional [place] Measure: 0=Not Assessed/NA 4=Minimal Assistance 1=Total Assistance 5=Supervision or Setup 2=Maximal Assistance 6=Modified [place] 3=Moderate Assistance 7=Complete IndependenceSCALE: Activities may be completed with or without assistive devices. 1-Zigzosdymh-bkcnrqx completes the activity by him/herself with no assistance from a helper. 5-Set-up or Clean-up Assistance-helper sets up or cleans up; patient completes activity. [place] assists only prior to or following the activity. 4-Supervision or Touching Assistance-helper provides verbal cues and/or touchin g/steadying and/or contact guard assistance as patient completes activity. Assistance may be provided throughout the activity or intermittently. 3-Partial/Moderate Assistance-helper does LESS THAN HALF the effort. [place] lifts, holds or supports trunk or limbs, but provides less than half the effort. 2-Substantial/Maximal Assistance-helper does MORE THAN HALF the effort. [place] lifts or holds trunk or limbs and provides more than half the effort. 7-Ygiutueih-oagccg does ALL the effort. Patient does none of the effort to complete the activity. Or, the assistance of 2 or more helpers is required for the patient to complete the activity. If activity was not attempted, code reason: 7-Patient Refused. 9-Not Applicable-not attempted and the patient did not perform the activity before the current illness, exacerbation or injury. 10-Not Attempted due to Environmental Limitations-(lack of equipment, weather restraints, etc.). 88-Not Attempted due to Medical Conditions or Safety Concerns. Lower Body Dressing (QC): 3 (Mod A donning pants.) Other Treatment OT/PT cotreat. OT/PT cotreat due to skill of 2 clinicians required which a rehabilitation worker could not perform in order to coordinate UEs/LES and due to pt's limitations in functional strength, functional endurance, and mobility. OT focused on ADLs, UE placement, cues for sequencing and safety while PT focused on LE's, transfers, dynamic sitting balance. Pt donned pants at recliner, requiring assist with pant hike as pt rolled side to side in recliner. SB transfer from recliner to w/c, then pt self-propelled w/c to therapy gym. Pt transferred to therapy mat, performing x10 reps of stability training to all sides. In order to increase dynamic sitting balance, pt performed functional activity of hitting balloon back and forth with OT as PT assisted with balance if needed. Pt completed balloon activity x2 trials, rest break between. Pt transferred back to w/c, propelled back to room, then transferred to recliner. Slide board transfers throughout session performed with min/modA. Post tx, pt seated in recliner, call light in reach and all needs met. Education OT Patient Education: Correct positioning, Modified ADL techniques, Progress toward Goal/Update tx plan, Purpose of tx/functional activities Teaching Recipient: Patient Teaching Methods: Discussion Response to Teaching: Verbalize Understanding OT Short Term Goals Short Term Goals Time Frame: Aug 11, 2020 Toileting hygiene: 2 Lower body dressin OT Shelter Goals Shelter Goals Time Frame: Aug 20, 2020 Eating (QC): 6 Oral Hygiene (QC): 6 Toileting Hygiene (QC): 3 Shower/Bathe Self (QC): 4 Upper Body Dressing (QC): 5 Lower Body Dressing (QC): 4 On/Off Footwear (QC): 88 1=Demonstrate adherence to instructed precautions during ADL tasks. 2=Patient will verbalize/demonstrate understanding of assistive devices/modifications for ADL. 3=Patient will improve strength/tolerance for activity to enable patient to perform ADL's. OT Education/Plan Problem List/Assessment Assessment: Decreased Activ Tolerance, Decreased UE Strength, Impaired Funct Balance, Impaired I ADL's, Impaired Self-Care Skills Pt would benefit from skilled OT in order to increase safety and independence with ADLs, and to increase BUE strength and functional endurance in order to maximize LOF for safe return home. Discharge Recommendations Plan/Recommendations: Continue POC Treatment Plan/Plan of Care Patient would benefit from OT for education, treatment and training to promote independence in ADL's, mobility, safety and/or upper extremity function for ADL's. Plan of Care: ADL Retraining, Functional Mobility, Group Exercise/Act as Ind, Orthotic Fitting/Training, UE Funct Exercise/Act, W/C Management Training Treatment Duration: Aug 20, 2020 Frequency: At least 5 of 7 days/Wk (IRF) Estimated Hrs Per Day: 1.5 hours per day Rehab Potential: Good Time/GCodes Start Time: 11:00 Stop Time: 12:00 Total Time Billed (hr/min): 60 Billed Treatment Time 1, FA 4 GRECIA CHANG OT Jul 27, 2020 13:18
--- NOTE | 2020-07-27 13:22 | Occupational Ther Daily Note ---
OT Current Status-Daily Note Subjective Pt seated in recliner, agreeable to OT Tx. Pt indicates he can tell he worked out his abdominal muscles during morning tx. ADL-Treatment Therapy Code Descriptions/Definitions Functional [place] Measure: 0=Not Assessed/NA 4=Minimal Assistance 1=Total Assistance 5=Supervision or Setup 2=Maximal Assistance 6=Modified [place] 3=Moderate Assistance 7=Complete IndependenceSCALE: Activities may be completed with or without assistive devices. 3-Ddoriukfcn-swgauzf completes the activity by him/herself with no assistance from a helper. 5-Set-up or Clean-up Assistance-helper sets up or cleans up; patient completes activity. [place] assists only prior to or following the activity. 4-Supervision or Touching Assistance-helper provides verbal cues and/or touching/steadying and/or contact guard assistance as patient completes ac tivity. Assistance may be provided throughout the activity or intermittently. 3-Partial/Moderate Assistance-helper does LESS THAN HALF the effort. [place] lifts, holds or supports trunk or limbs, but provides less than half the effort. 2-Substantial/Maximal Assistance-helper does MORE THAN HALF the effort. [place] lifts or holds trunk or limbs and provides more than half the effort. 3-Jioebfkmc-giphmz does ALL the effort. Patient does none of the effort to complete the activity. Or, the assistance of 2 or more helpers is required for the patient to complete the activity. If activity was not attempted, code reason: 7-Patient Refused. 9-Not Applicable-not attempted and the patient did not perform the activity before the current illness, exacerbation or injury. 10-Not Attempted due to Environmental Limitations-(lack of equipment, weather restraints, etc.). 88-Not Attempted due to Medical Conditions or Safety Concerns. Eating (QC): 6 (Pt indicates independent with eating lunch.) Oral Hygiene (QC): 7 Other Treatment Pt seated in recliner. Pt indicates he had no difficulty eating lunch, independent with eating at this time. OT tx with focus on increasing BUE strength and functional endurance. Pt completed fine motor task of placing/removing 1" pegs from pegboard, 1lb wrist cuffs BUEs. Pt alternated hands with task and took rest breaks as needed. Pt states he can tell he has been working his arms, but they are not too fatigued at this time. Post OT tx, pt seated in recliner, call light in reach and all needs met. Education OT Patient Education: Correct positioning, Energy conservation, Exercise program, Modified ADL techniques, Progress toward Goal/Update tx plan, Purpose of tx/functional activities Teaching Recipient: Patient Teaching Methods: Discussion Response to Teaching: Verbalize Understanding OT Short Term Goals Short Term Goals Time Frame: Aug 11, 2020 Toileting hygiene: 2 Lower body dressin OT Bias Machine Operator Helper Goals Bias Machine Operator Helper Goals Time Frame: Aug 20, 2020 Eating (QC): 6 Oral Hygiene (QC): 6 Toileting Hygiene (QC): 3 Shower/Bathe Self (QC): 4 Upper Body Dressing (QC): 5 Lower Body Dressing (QC): 4 On/Off Footwear (QC): 88 1=Demonstrate adherence to instructed precautions during ADL tasks. 2=Patient will verbalize/demonstrate understanding of assistive devices/modifications for ADL. 3=Patient will improve strength/tolerance for activity to enable patient to perform ADL's. OT Education/Plan Problem List/Assessment Assessment: Decreased Activ Tolerance, Decreased UE Strength, Impaired I ADL's Pt would benefit from skilled OT in order to increase safety and independence with ADLs, and to increase BUE strength and functional endurance in order to maximize LOF for safe return home. Discharge Recommendations Plan/Recommendations: Continue POC Treatment Plan/Plan of Care Patient would benefit from OT for education, treatment and training to promote independence in ADL's, mobility, safety and/or upper extremity function for ADL's. Plan of Care: ADL Retraining, Functional Mobility, Group Exercise/Act as Ind, Orthotic Fitting/Training, UE Funct Exercise/Act, W/C Management Training Treatment Duration: Aug 20, 2020 Frequency: At least 5 of 7 days/Wk (IRF) Estimated Hrs Per Day: 1.5 hours per day Rehab Potential: Good Time/GCodes Start Time: 13:00 Stop Time: 13:30 Total Time Billed (hr/min): 30 Billed Treatment Time 1, FA 2 GRECIA CHANG OT Jul 27, 2020 13:22
--- NOTE | 2020-07-27 13:58 | Physical Therapy Daily Note ---
PT Daily Note-Current Subjective Patient in recliner pre tx, agrees to PT, has no complaints of pain. Appearance Patient in recline post tx with nurse call, phone, tray, all needs met. Mental Status Patient Orientation: Person, Place, Situation Attachments: Oxygen, [place] Catheter Transfers SCALE: Activities may be completed with or without assistive devices. 0-Lkjkhhrrko-ioynpgp completes the activity by him/herself with no assistance from a helper. 5-Set-up or Clean-up Assistance-helper sets up or cleans up; patient completes activity. [place] assists only prior to or following the activity. 4-Supervision or Touching Assistance-helper provides verbal cues and/or touching/steadying and/or contact guard assistance as patient completes ac tivity. Assistance may be provided throughout the activity or intermittently. 3-Partial/Moderate Assistance-helper does LESS THAN HALF the effort. [place] lifts, holds or supports trunk or limbs, but provides less than half the effort. 2-Substantial/Maximal Assistance-helper does MORE THAN HALF the effort. [place] lifts or holds trunk or limbs and provides more than half the effort. 4-Slaymcurc-jyplqi does ALL the effort. Patient does none of the effort to complete the activity. Or, the assistance of 2 or more helpers is required for the patient to complete the activity. If activity was not attempted, code reason: 7-Patient Refused. 9-Not Applicable-not attempted and the patient did not perform the activity before the current illness, exacerbation or injury. 10-Not Attempted due to Environmental Limitations-(lack of equipment, weather restraints, etc.). 88-Not Attempted due to Medical Conditions or Safety Concerns. Exercises Supine Ex: Quad Set, Glut sets, Heel Slides, Short Arc Quads, Straight leg raise, Hip abd/add Supine Reps: 20 Seated Therapy Exercises: Long arc quads, Hip flexion Seated Reps: 20 Treatments LE exercise Assessment Current Status: Fair Progress no change in mobility, patient needs frequent rest breaks, gets SOB with activity PT Short Term Goals Short Term Goals Time Frame: Aug 07, 2020 Sit to lyin Lying to sitting on side of be: 3 Wheel 50ft w/2 turns: 6 Wheel 150 feet: 6 PT Halfway Goals Elevated Work Platform Operator Goals PT Halfway Goals Time Frame: Aug 21, 2020 Roll Left & Right (QC): 6 Sit to Lying (QC): 6 Lying-Sitting on Side/Bed(QC): 6 Sit to Stand (QC): 88 Chair/Fdg-cj-Fzqwi Xfer(QC): 6 Toilet Transfer (QC): 6 Car Transfer (QC): 6 Does the Patient Walk: No and Walking Goal NOT indicated Walk 10 feet (QC): 88 Walk 50ft with 2 Turns (QC): 88 Walk 150 ft (QC): 88 Walking 10ft on Uneven Surface: 88 1 Step (curb) (QC): 88 4 Steps (QC): 88 12 Steps (QC): 88 Picking up an Object (QC): 6 (snow maker) Does the Pt use WC or Scooter?: Yes Wheel 50 feet with 2 turns (QC: 6 Type: Manual Wheel 150 feet: 6 Type: Manual PT Plan Problem List Problem List: Activity Tolerance, Functional Strength, Safety, Balance, Gait, Transfer, Bed Mobility, ROM Treatment/Plan Treatment Plan: Continue Plan of Care Treatment Plan: Bed Mobility, Education, Functional Activity [place], Functional Strength, Safety, Therapeutic Exercise, Transfers Treatment Duration: Aug 21, 2020 Frequency: At least 5 of 7 days/Wk (IRF) Estimated Hrs Per Day: 1 hour per day Patient and/or Family Agrees t: Yes Safety Risks/Education Patient Education: Correct Positioning, Safety Issues Teaching Recipient: Patient Teaching Methods: Demonstration, Discussion Response to Teaching: Reinforcement Needed Time/GCodes Time In: 1330 Time Out: 1400 Total Billed Treatment Time: 30 Total Billed Treatment 1 visit EX 30' YAAKOV PEDRAZA PT Jul 27, 2020 13:58
[2020-07-27 16:00] VITALS: BP 110/59
--- NOTE | 2020-07-27 19:05 | NUR ---
Bedside report received from BARBARA WOO, assume care of pt
[2020-07-27] MEDS: SIMvastatin 20 MG (ZOCOR) TAB PO SCH (21:16)
--- NOTE | 2020-07-27 21:16 | NUR ---
Pt took Colace but refused Miralax & Senokot, fsbs 331 NovoLog 3 units & Levemir 8 units given
--- NOTE | 2020-07-27 21:30 | NUR ---
This nurse got call from financial services technician that pt cardiac rhythm showing SR, this nurse checked telemetry unit & it looked like SR
--- NOTE | 2020-07-27 21:45 | NUR ---
EKG obtained showing SR
--- NOTE | 2020-07-27 22:00 | NUR ---
called advised of rhythm changed will wait until morning with next EKG & might have to cancel RON/CARDIOVERSION
[2020-07-28 05:15] VITALS: BP 128/62
--- NOTE | 2020-07-28 06:05 | NUR ---
EKG shows SR:93
--- NOTE | 2020-07-28 06:09 | NUR ---
called advised of EKG results, orders received to allow pt to eat
[2020-07-28] MEDS: BETHANECHOL 25 MG (URECHOLINE) TAB PO SCH ×4 (06:13→22:16)
[2020-07-28] MEDS: inSUlin (REGULAR) HUMAN 1 UNIT/0.01 ML (CHARGE PER UNIT) SC SCH ×4 (06:14→22:15)
[2020-07-28] MEDS: RT-ALBUTEROL/IPRATROPIUM 3 ML (DUONEB) VIAL INH SCH ×3 (07:22→21:04)
[2020-07-28 07:25] LABS: BASOPHILS % (AUTO) 0 % (0-10); EOSINOPHILS # (AUTO) 0.3 10^3/uL (0.0-0.3); EOSINOPHILS % (AUTO) 2 % (0-10); HEMATOCRIT 27 % (40-54); HEMOGLOBIN 7.9 g/dL (13.3-17.7); LYMPHOCYTES # (AUTO) 0.4 10^3/uL (1.0-4.0); LYMPHOCYTES % (AUTO) 3 % (12-44); MEAN CORPUSCULAR HEMOGLOBIN 26 pg (25-34); MEAN CORPUSCULAR HGB CONC 30 g/dL (32-36); MEAN CORPUSCULAR VOLUME 89 fL (80-99); MEAN PLATELET VOLUME 11.2 fL (9.0-12.2); MONOCYTES # (AUTO) 0.9 10^3/uL (0.0-1.0); MONOCYTES % (AUTO) 5 % (0-12); NEUTROPHILS # (AUTO) 14.2 10^3/uL (1.8-7.8); NEUTROPHILS % (AUTO) 89 % (42-75); PLATELET COUNT 202 10^3/uL (130-400)
[2020-07-28 07:39] LABS: ALBUMIN 2.1 GM/DL (3.2-4.5); CHLORIDE 93 MMOL/L (98-107); POTASSIUM 3.7 MMOL/L (3.6-5.0); SODIUM 138 MMOL/L (135-145)
[2020-07-28 07:40] LABS: CALCIUM 7.8 MG/DL (8.5-10.1)
[2020-07-28 07:42] LABS: GLUCOSE 119 MG/DL (70-105)
[2020-07-28 07:43] LABS: BILIRUBIN,TOTAL 0.4 MG/DL (0.1-1.0); CARBON DIOXIDE 39 MMOL/L (21-32)
[2020-07-28 07:44] LABS: ANISOCYTOSIS MODERATE; EOSINOPHILS % (MANUAL) 3 %; HYPOCHROMASIA MARKED; LYMPHOCYTES % (MANUAL) 2 %; MONOCYTES % (MANUAL) 5 %; NEUTROPHILS % (MANUAL) 90 %; POIKILOCYTOSIS SLIGHT
[2020-07-28 07:45] LABS: ALKALINE PHOSPHATASE 149 U/L (40-136); CREATININE SERUM 0.55 MG/DL (0.60-1.30); ELLIPT/OVALOCYTES MODERATE; GFR ESTIMATED > 60
[2020-07-28 07:46] LABS: BUN/CREATININE RATIO 31
[2020-07-28 07:48] LABS: ALANINE AMINOTRANSFERASE 14 U/L (0-55)
--- NOTE | 2020-07-28 08:34 | Diagnostic Imaging Report ---
Indication: Shortness of air. COMPARISON: 07/22/2020 FINDINGS: Single frontal radiograph view the chest was obtained and demonstrate interval increase in opacification right base resulting in obscuration right hemidiaphragm. Similar appearance is also noted on the left. There is no pneumothorax. Cardiac silhouette and pulmonary vasculature mildly prominent. Right internal jugular Port-A-Cath is seen with tip in the SVC. Osseous structures show no acute abnormalities IMPRESSION: 1. Moderate bibasilar effusions and associated atelectasis and/or infiltrate, increased on the right when compared to prior exam. 2. Cardiomegaly and pulmonary vascular congestion. Dictated by: Dictated on workstation # [id number]
--- NOTE | 2020-07-28 08:48 | Cardiology Progress Note ---
Subjective Date Seen by Provider: Jul 28, 2020 Time Seen by Provider: 08:20 Subjective/Events-last exam Patient is sitting up in chair, denies any chest pain or dyspnea. Patient back in SR this morning. Review of Systems General: No Chills, No Night Sweats; Fatigue, Malaise; No Appetite, No Other HEENT: No Head Aches, No Visual Changes, No Eye Pain, No Ear Pain, No D ysphasia, No Sinus Congestion, No Post Nasal Drip, No Sore Throat, No Other Pulmonary: No Dyspnea, No Cough, No Pleuritic Chest Pain, No Other Cardiovascular: No: Chest Pain, Palpitations, Orthopnea, Paroxysmal Noc. Dyspnea, Edema, Lt Headedness, Other Objective-Cardiology Exam Last Set of Vital Signs Vital Signs 07/28/20 07/28/20 07/28/20 05:15 06:40 07:22 Temp 36.8 Pulse 92 Resp 22 B/P (MAP) 128/62 (84) Pulse Ox 90 O2 Delivery Nasal Cannula O2 Flow Rate 3.00 Capillary Refill : Less Than 3 SecondsLess Than 3 Seconds I&O Intake and Output 07/28/20 00:00 Intake Total 1490 ml Output Total 1750 ml Balance -260 ml Intake Oral 1490 ml Output Urine Total 1750 ml General: Alert, Oriented X3, Cooperative HEENT: Atraumatic, PERRLA Neck: Supple, No JVD, No Thyromegaly Lungs: Clear to Auscultation, Normal Air Movement Heart: Regular Rate, Normal S1, Normal S2, No Murmurs Abdomen: Normal Bowel Sounds, Soft, No Tenderness, No Hepatosplenomegaly, No Masses Extremities: No Clubbing, No Cyanosis, No Edema, Normal Pulses, No Tenderness/Swelling Skin: No Rashes, No Breakdown, No Significant Lesion Neuro: Normal Speech, Cranial Nerves 3-12 NL Psych/Mental Status: Mental Status NL, Mood NL Results Lab Laboratory Tests 07/28/20 07:15 A/P-Cardiology Admission Diagnosis PAF HTN HLP Assessment/Plan Pneumonia - improving, continue to monitor. UTI - management per Medical services C-diff (+), treated and improved, managed by medical services. Anemia of undetermined etiology, worsening H/H, managed by the Medical service Paroxysmal atrial fibrillation/flutter (first diagnosed on tele 07-19-2020), converted to sinus rhythm. Continue to monitor Aortic stenosis- Echocardiogram of Jul 14, 2020 showed LVEF 55-65%. Mod to severe aortic stenosis. Peak gradient 55mHg, mean gradient 41 mmHg, valve area 1.0 cm2. PASP 40-45mmHg History of sigmoid colon resection, had adhesion managed in August 2019. Hypertension, controlled, continue to monitor. Hyperlipidemia, continue to monitor. Peripheral edema, continue to diurese. 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 Diabetes mellitus, poorly controlled. History of TIA in 2003 at [facility]. Currently on apixaban stroke prophylaxis Patient was seen and evaluated with Mary, examination performed, management plan was discussed, agree with the current scribed note, I made few changes to the note using Italic font Patient was seen at bedside, feeling better. He is back to sinus rhythm. I canceled the planned RON and cardioversion. Continue on current medication continue physical and occupational therapy. Clinical Quality Measures DVT/VTE Risk/Contraindication: Risk Factor Score Per Nursin RFS Level Per Nursing on Admit: 4+=Very High MARY COREA Jul 28, 2020 8:48 am LENARD HUDSON MD Jul 28, 2020 11:31 am
--- NOTE | 2020-07-28 09:41 | Occupational Ther Daily Note ---
OT Current Status-Daily Note Subjective Pt AxO in recliner this am. Pt denies pain, agrees to tx. Coughing intermittently. OT individual tx: [id number] OT/ PT co-treat: [id number] Co-treat with OT addressing ADLs, UE movement, fx balance during fx activity, and UE edema while PT addresses LE movement, LE strength, balance, LE edema. Mental Status/Objective Patient Orientation: Person, Place, Situation Attachments: [place] Catheter, Oxygen ADL-Treatment Therapy Code Descriptions/Definitions Functional [place] Measure: 0=Not Assessed/NA 4=Minimal Assistance 1=Total Assistance 5=Supervision or Setup 2=Maximal Assistance 6=Modified [place] 3=Moderate Assistance 7=Complete IndependenceSCALE: Activities may be completed with or without assistive devices. 3-Waopfipruw-ufexhjv completes the activity by him/herself with no assistance from a helper. 5-Set-up or Clean-up Assistance-helper sets up or cleans up; patient completes activity. [place] assists only prior to or following the activity. 4-Supervision or Touching Assistance-helper provides verbal cues and/or touching/steadying and/or contact guard assistance as patient completes activity. Assistance may be provided throughout the activity or intermittently. 3-Partial/Moderate Assistance-helper does LESS THAN HALF the effort. [place] lifts, holds or supports trunk or limbs, but provides less than half the effort. 2-Substantial/Maximal Assistance-helper does MORE THAN HALF the effort. [place] lifts or holds trunk or limbs and provides more than half the effort. 2-Ctnxcepcg-cgjxia does ALL the effort. Patient does none of the effort to complete the activity. Or, the assistance of 2 or more helpers is required for the patient to complete the activity. If activity was not attempted, code reason: 7-Patient Refused. 9-Not Applicable-not attempted and the patient did not perform the activity before the current illness, exacerbation or injury. 10-Not Attempted due to Environmental Limitations-(lack of equipment, weather restraints, etc.). 88-Not Attempted due to Medical Conditions or Safety Concerns. Eating (QC): 6 Bathing Location: L Arm, R Arm, L Upper Leg, R Upper Leg, Chest, Abdomen, Pe rineal Area Shower/Bathe Self (QC): 3 (mon A (back and bottom). Completed in recliner- pt rolls L-R for washing bottom area.) Upper Body Dressing (QC): 3 (min A due to decreased core strength to sit upright during shirt doff/ donning over back.) Lower Body Dressing (QC): 2 (Pt able to don over legs, requires max A for hiking over hips in sit/ leaning. ) On/Off Footwear: 88 Toileting Hygiene (QC): 2 (max A bottom ) Other Treatment Pt in recliner, completes sponge bath/ dressing as outlined above. Pt requires increased assist in lateral leaning in recliner for bottom cleaning/ pant donning. Pt's privates pinched during pant donning, requiring max reclining position to situate in front. Pt states much more comfortable. Pt denies needs, call light in reach, pt in recliner. Co-treat: Pt agrees to co-treat. Pt completes SB transfer from recliner to w/c with CGA x2. Pt completes with increased time. Pt propels self to gym, w/c to EOM with slide board. Pt sits EOM, completing sitting balance. Pt sit to supine and OT educates pt on edema management technique, completing manual retrograde massage on LUE with lymphatic stimulation. Pt is educated on large muscle movements to assist in pumping edema toward core. Pt completes UE ex (20 reps bilaterally) of the following against gravity: bicep curls, shoulder flexion, pro/ supination, wrist flex/ ext. Pt EOM to w/c with SB and SBA. Pt propels back to room and returns to recliner with CGA x2. Pt denies needs, call light in reach. Education OT Patient Education: Correct positioning, Exercise program, Home exercise program, Modified ADL techniques, Progress toward Goal/Update tx plan, Purpose of tx/functional activities, Safety issues, Transfer techniques Teaching Recipient: Patient Teaching Methods: Demonstration, Discussion Response to Teaching: Verbalize Understanding, Return Demonstration, Reinforcement Needed OT Short Term Goals Short Term Goals Time Frame: Aug 11, 2020 Toileting hygiene: 2 Lower body dressin OT Longterm Goals Compliance Assistant Goals Time Frame: Aug 20, 2020 Eating (QC): 6 Oral Hygiene (QC): 6 Toileting Hygiene (QC): 3 Shower/Bathe Self (QC): 4 Upper Body Dressing (QC): 5 Lower Body Dressing (QC): 4 On/Off Footwear (QC): 88 1=Demonstrate adherence to instructed precautions during ADL tasks. 2=Patient will verbalize/demonstrate understanding of assistive devices/modifications for ADL. 3=Patient will improve strength/tolerance for activity to enable patient to perform ADL's. OT Education/Plan Problem List/Assessment Assessment: Decreased Activ Tolerance, Decreased UE Strength, Dependent Transfers, Edema, Impaired Funct Balance, Impaired I ADL's, Impaired Self-Care Skills Pt would benefit from skilled OT in order to increase safety and independence with ADLs, and to increase BUE strength and functional endurance in order to maximize LOF for safe return home. Discharge Recommendations Plan/Recommendations: Continue POC Therapy Discharge Recommendati: Assisted Living, Home & Family, Post Acute OT Treatment Plan/Plan of Care Treatment,Training & Education: Yes Patient would benefit from OT for education, treatment and training to promote independence in ADL's, mobility, safety and/or upper extremity function for ADL's. Plan of Care: ADL Retraining, Functional Mobility, Group Exercise/Act as Ind, Orthotic Fitting/Training, UE Funct Exercise/Act, W/C Management Training Treatment Duration: Aug 20, 2020 Frequency: At least 5 of 7 days/Wk (IRF) Estimated Hrs Per Day: 1.5 hours per day Rehab Potential: Good Time/GCodes Start Time: 09:05 (1100) Stop Time: 09:35 (1200) Total Time Billed (hr/min): 90 Billed Treatment Time 3064-4108 (30): 1, ADL 2 (30) 5939-4122: 1, MAS, EX 3 (60) SHARON DUENAS OTR Jul 28, 2020 09:41
[2020-07-28] MEDS: CLOPIDOGREL 75 MG (PLAVIX) TABLET PO SCH (10:04)
[2020-07-28] MEDS: FUROSEMIDE 40 MG (LASIX) TAB PO SCH (10:04)
[2020-07-28] MEDS: APIXABAN 5 MG (ELIQUIS) TABLET PO SCH ×2 (10:04→22:16)
[2020-07-28] MEDS: polyethylene glycoL POWDER 17 GM (MIRALAX) PACK PO SCH ×2 (10:04→22:15)
[2020-07-28] MEDS: SENNA W/DOCUSATE (SENOKOT S) TABLET PO SCH ×2 (10:05→22:15)
[2020-07-28] MEDS: DAKIN'S 1/2 STRENGTH (0.25%) 473 ML BTL TOP SCH ×2 (10:06→19:34)
[2020-07-28] MEDS: DOCUSATE SODIUM 100 MG (COLACE) CAP PO SCH ×2 (10:06→22:16)
--- NOTE | 2020-07-28 10:10 | NUR ---
Note pt had two diet orders placed: NPO and CHO 75g/m. Note pt is no longer NPO, per Charlee WOO. DC'ed NPO order. S MAYA ISAACS, MS RD LD
--- NOTE | 2020-07-28 10:33 | PM&R Progress Note ---
Subjective HPI/CC On Admission Date Seen by Provider: Jul 28, 2020 Time Seen by Provider: 10:30 Subjective/Events-last exam 07/28/20: Wound on the right stump on is improved Cardioversion was not necessary since he spontaneously converted to normal sinus rhythm today Bowels are moving okay and they are formed stools Anasarca is still and issue and working on diuresis Hgb is 7.9 07/27/20: Pt still with third spacing fluid Glucose is 85 will adjust insulin down Dr. Li gave Zaroxolyn to try to get rid of all the fluid Cardioversion planned for the morning so will be NPO after midnight IS use will be maintained 07/26/20: Patient improved Less dyspneic Stools are formed No pain reported Third spacing fluid, encouraged protein consumption 07/25/20: Patient doing very well Anasarca due to low albumin discussed and he will focus on increasing protein in diet Anemia noted so will add Iron level to labs and likely will need iron infusions No pain reported Stools soft Stopped Questran when he requested it and therapy was completed anyway Checked meds and labs Review of Systems General: Fatigue, Malaise Pulmonary: Dyspnea, Cough Cardiovascular: Edema Neurological: Weakness, Incoordination Objective Exam Vital Signs Vital Signs Date Time Temp Pulse Resp B/P (MAP) Pulse Ox O2 Delivery O2 Flow Rate FiO2 07/28/20 20:15 94 Nasal Cannula 3.00 07/28/20 19:49 102 07/28/20 17:09 36.6 18 110/56 (74) Capillary Refill : Less Than 3 SecondsLess Than 3 Seconds General Appearance: No Apparent Distress, WD/WN, Chronically ill HEENT: PERRL/EOMI, Normal ENT Inspection, Pharynx Normal Neck: Full Range of Motion, Normal Inspection, Non Tender, Supple, Carotid Bruit Respiratory: Chest Non Tender, Lungs Clear, No Accessory Muscle Use, No Respiratory Distress, Decreased Breath Sounds Cardiovascular: Regular Rate, Rhythm, No Edema, No Gallop, No JVD, No Murmur, Normal Peripheral Pulses, Tachycardia Gastrointestinal: Normal Bowel Sounds, No Organomegaly, No Pulsatile Mass, Non Tender, Soft Back: Normal Inspection, No CVA Tenderness, No Vertebral Tenderness Extremity: Normal Capillary Refill, Normal Inspection, Normal Range of Motion, Non Tender, No Calf Tenderness Neurologic/Psychiatric: Alert, Oriented x3, No Motor/Sensory Deficits, Normal Mood/Affect, Abnormal Gait, Motor Weakness (generalized), Other (bilateral BKA's) Skin: Normal Color, Warm/Dry Lymphatic: No Adenopathy Results/Procedures Lab Laboratory Tests 07/28/20 07:15 Patient resulted labs reviewed. FIM Transfers Therapy Code Descriptions/Definitions Functional [place] Measure: 0=Not Assessed/NA 4=Minimal Assistance 1=Total Assistance 5=Supervision or Setup 2=Maximal Assistance 6=Modified [place] 3=Moderate Assistance 7=Complete IndependenceSCALE: Activities may be completed with or without assistive devices. 6-Gtgbzvjdgt-ttggivj completes the activity by him/herself with no assistance from a helper. 5-Set-up or Clean-up Assistance-helper sets up or cleans up; patient completes activity. [place] assists only prior to or following the activity. 4-Supervision or Touching Assistance-helper provides verbal cues and/or touch ing/steadying and/or contact guard assistance as patient completes activity. Assistance may be provided throughout the activity or intermittently. 3-Partial/Moderate Assistance-helper does LESS THAN HALF the effort. [place] lifts, holds or supports trunk or limbs, but provides less than half the effort. 2-Substantial/Maximal Assistance-helper does MORE THAN HALF the effort. [place] lifts or holds trunk or limbs and provides more than half the effort. 3-Rsnkyjpko-bbdtmv does ALL the effort. Patient does none of the effort to complete the activity. Or, the assistance of 2 or more helpers is required for the patient to complete the activity. If activity was not attempted, code reason: 7-Patient Refused. 9-Not Applicable-not attempted and the patient did not perform the activity bef ore the current illness, exacerbation or injury. 10-Not Attempted due to Environmental Limitations-(lack of equipment, weather restraints, etc.). 88-Not Attempted due to Medical Conditions or Safety Concerns. Roll Left to Right (QC): 3 Sit to Lying (QC): 3 Sit to Stand (QC): 88 (unable to apply prosthesis at this time.) Chair/Sce-xb-Ypulw Xfer(QC): 3 Car Transfer (QC): 88 Gait Training Does the Patient Walk?: No and Walking Goal IS indicated Walk 10 feet (QC): 88 Walk 50 ft with 2 Turns(QC): 88 Walk 150 ft (QC): 88 Walking 10ft/uneven surface-QC: 88 Wheelchair Training Does the Pt Use a Wheelchair?: Yes Wheel 50 ft with 2 turns (QC): 4 Wheel 150 ft (QC): 4 Type of Wheelchair: Manual Stair Training 1 Step (curb) (QC): 88 4 Steps (QC): 88 12 Steps (QC): 88 Balance Picking up an Object (QC): 9 ADL-Treatment Eating (QC): 6 Oral Hygiene (QC): 7 Bathing Location: L Arm, R Arm, L Upper Leg, R Upper Leg, Chest, Abdomen, Perineal Area Shower/Bathe Self (QC): 3 (mon A (back and bottom). Completed in recliner- pt rolls L-R for washing bottom area.) Upper Body Dressing (QC): 3 (min A due to decreased core strength to sit upright during shirt doff/ donning over back.) Lower Body Dressing (QC): 2 (Pt able to don over legs, requires max A for hiking over hips in sit/ leaning. ) On/Off Footwear (QC): 88 Toileting Hygiene (QC): 2 (max A bottom ) Assessment/Plan Assessment and Plan Assess & Plan/Chief Complaint Assessment: Debility New onset AF w/RVR scheduled for cardioversion 07/28/20 but did not require since spontaneously converted 07/28/20 0700 Chronic bilateral BKA's DM insulin requiring s/p C diff colitis now resolved after Vanc PO Recent UTI Recent PNA Sinus tachycardia Aortic stenosis Systolic dysfunction h/o TIA Colon cancer s/p resection 10/2019 Dr Bautista s/p nephrostomy tubes Spring 2019 [facility] Anemia Anasarca Plan: IRF protocol Monitor stools O2 Insulin Cardiology appreciated 07/25/20: Add iron level to labs Monitor protein intake Fall risk Monitor tachycardia 07/26/20: Protein consumption Monitor edema Increased insulin 07/27/20: Diuresis Cardioversion Monitor closely Check CXR and labs and PCT 07/28/20: Diuresis Monitor lungs Monitor edema (1) Debility (2) Atrial fibrillation with rapid ventricular response (3) Urinary tract infection associated with catheterization of urinary tract Status: Acute (4) Diabetes mellitus Status: Chronic (5) Colon cancer Status: Chronic (6) Hypertension Status: Chronic (7) History of TIA (transient ischemic attack) Status: Chronic (8) Hyperlipidemia Status: Chronic (9) Cardiac murmur YAAKOV SMITH DO Jul 28, 2020 10:33
--- NOTE | 2020-07-28 12:13 | Physical Therapy Daily Note ---
PT Daily Note-Current Subjective Pt. shares some of his history with regards to bilateral amputee status. Denies pain. Agrees to PT OT co Rx. Pain Location: No Pain Reported Appearance pt. with pitting edema distal to proximal up in to chest area. loose cough throughout Rx. Mental Status Patient Orientation: Person, Place, Time, Situation Attachments: Oxygen, Other-See Comments (mask while out of room.) Transfers SCALE: Activities may be completed with or without assistive devices. 9-Vkgognnmyw-caudpwa completes the activity by him/herself with no assistance from a helper. 5-Set-up or Clean-up Assistance-helper sets up or cleans up; patient completes activity. [place] assists only prior to or following the activity. 4-Supervision or Touching Assistance-helper provides verbal cues and/or touching/steadying and/or contact guard assistance as patient completes activity. Assistance may be provided throughout the activity or intermittently. 3-Partial/Moderate Assistance-helper does LESS THAN HALF the effort. [place] lifts, holds or supports trunk or limbs, but provides less than half the effort. 2-Substantial/Maximal Assistance-helper does MORE THAN HALF the effort. [place] lifts or holds trunk or limbs and provides more than half the effort. 0-Olcbiapzf-bqytfw does ALL the effort. Patient does none of the effort to complete the activity. Or, the assistance of 2 or more helpers is required for the patient to complete the activity. If activity was not attempted, code reason: 7-Patient Refused. 9-Not Applicable-not attempted and the patient did not perform the activity before the current illness, exacerbation or injury. 10-Not Attempted due to Environmental Limitations-(lack of equipment, weather restraints, etc.). 88-Not Attempted due to Medical Conditions or Safety Concerns. Roll Left & Right (QC): 6 Sit to Lying (QC): 4 Lying to Sitting/Side of Bed(Q: 3 Chair/Mav-to-Lpwvz Xfer(QC): 3 curved slide board TRF left and right with assist to place board and prepare area as well as min assist for TRF and instruction for hand placement. Pt. fatigues and needs rest breaks. Wheelchair Training Does the Pt Use a Wheelchair?: Yes Wheel 50 ft with 2 turns (QC): 6 Type of Wheelchair: Manual [id number], 50 needs rest breaks, needs reminders to brake w/c. Exercises Supine Ex: Quad Set, Rolling, Glut sets, Heel Slides, Straight leg raise, Hip abd/add Supine Reps: 12 Treatments PT OT co Rx ,2 skilled clinicians required to manage pts. low level of function, weak debilitated status, OT addressing lymph and edema as well as UE use for TRFs, PT addressing LE therex and slide brd details and training as well as w/c mob Assessment Current Status: Good Progress gives good effort, edema limits mobility and SOB PT Short Term Goals Short Term Goals Time Frame: Aug 07, 2020 Sit to lyin Lying to sitting on side of be: 3 Wheel 50ft w/2 turns: 6 Wheel 150 feet: 6 PT Lacquer Pin Press Operator Goals Lacquer Pin Press Operator Goals PT Lacquer Pin Press Operator Goals Time Frame: Aug 21, 2020 Roll Left & Right (QC): 6 Sit to Lying (QC): 6 Lying-Sitting on Side/Bed(QC): 6 Sit to Stand (QC): 88 Chair/Lby-hk-Pxnex Xfer(QC): 6 Toilet Transfer (QC): 6 Car Transfer (QC): 6 Does the Patient Walk: No and Walking Goal NOT indicated Walk 10 feet (QC): 88 Walk 50ft with 2 Turns (QC): 88 Walk 150 ft (QC): 88 Walking 10ft on Uneven Surface: 88 1 Step (curb) (QC): 88 4 Steps (QC): 88 12 Steps (QC): 88 Picking up an Object (QC): 6 (rn neonatal) Does the Pt use WC or Scooter?: Yes Wheel 50 feet with 2 turns (QC: 6 Type: Manual Wheel 150 feet: 6 Type: Manual PT Plan Treatment/Plan Treatment Plan: Continue Plan of Care Treatment Plan: Bed Mobility, Education, Functional Activity [place], Functional Strength, Safety, Therapeutic Exercise, Transfers Treatment Duration: Aug 21, 2020 Frequency: At least 5 of 7 days/Wk (IRF) Estimated Hrs Per Day: 1 hour per day Patient and/or Family Agrees t: Yes Safety Risks/Education Patient Education: Transfer Techniques, Correct Positioning, W/C Management, Disease Process, Safety Issues Teaching Recipient: Patient Teaching Methods: Demonstration, Discussion Response to Teaching: Verbalize Understanding, Return Demonstration, Reinforcement Needed Time/GCodes Time In: 1100 Time Out: 1200 Total Billed Treatment Time: 60 Total Billed Treatment 1,EX15,WC15,FA30 Co Rx 60 m w GEE GALEANA SUPERINTENDENT MAINTENANCE Jul 28, 2020 12:13
--- NOTE | 2020-07-28 14:22 | Physical Therapy Daily Note ---
PT Daily Note-Current Subjective Pt. up in recliner, wants to stay there, "bed isnt so comfortable" Pain Location: No Pain Reported Mental Status Patient Orientation: Normal For Age Attachments: Oxygen Transfers SCALE: Activities may be completed with or without assistive devices. 9-Tleumwzubn-ppjamlz completes the activity by him/herself with no assistance from a helper. 5-Set-up or Clean-up Assistance-helper sets up or cleans up; patient completes activity. [place] assists only prior to or following the activity. 4-Supervision or Touching Assistance-helper provides verbal cues and/or touching/steadying and/or contact guard assistance as patient completes activity. Assistance may be provided throughout the activity or intermittently. 3-Partial/Moderate Assistance-helper does LESS THAN HALF the effort. [place] lifts, holds or supports trunk or limbs, but provides less than half the effort. 2-Substantial/Maximal Assistance-helper does MORE THAN HALF the effort. [place] lifts or holds trunk or limbs and provides more than half the effort. 5-Ynmkdgcmi-gulrdr does ALL the effort. Patient does none of the effort to complete the activity. Or, the assistance of 2 or more helpers is required for the patient to complete the activity. If activity was not attempted, code reason: 7-Patient Refused. 9-Not Applicable-not attempted and the patient did not perform the activity before the current illness, exacerbation or injury. 10-Not Attempted due to Environmental Limitations-(lack of equipment, weather restraints, etc.). 88-Not Attempted due to Medical Conditions or Safety Concerns. Exercises Supine Ex: Quad Set, Rolling, Glut sets, Lower trunk rotation, Straight leg raise, Hip abd/add Supine Reps: 20 Treatments instructed pt. in laying chair out flatter to be able to roll side to side for skin protection on his bottom, pt. then demonstrated use of chair to lay and sit back up x3, rolled left and right and stayed off buttocks about 40 sec Assessment Current Status: Good Progress PT Short Term Goals Short Term Goals Time Frame: Aug 07, 2020 Sit to lyin Lying to sitting on side of be: 3 Wheel 50ft w/2 turns: 6 Wheel 150 feet: 6 PT Electrical And Instrumentation Mechanic Goals Alf Goals PT Alf Goals Time Frame: Aug 21, 2020 Roll Left & Right (QC): 6 Sit to Lying (QC): 6 Lying-Sitting on Side/Bed(QC): 6 Sit to Stand (QC): 88 Chair/Jif-vg-Auslz Xfer(QC): 6 Toilet Transfer (QC): 6 Car Transfer (QC): 6 Does the Patient Walk: No and Walking Goal NOT indicated Walk 10 feet (QC): 88 Walk 50ft with 2 Turns (QC): 88 Walk 150 ft (QC): 88 Walking 10ft on Uneven Surface: 88 1 Step (curb) (QC): 88 4 Steps (QC): 88 12 Steps (QC): 88 Picking up an Object (QC): 6 (supervisor roving) Does the Pt use WC or Scooter?: Yes Wheel 50 feet with 2 turns (QC: 6 Type: Manual Wheel 150 feet: 6 Type: Manual PT Plan Treatment/Plan Treatment Plan: Continue Plan of Care Treatment Plan: Bed Mobility, Education, Functional Activity [place], Functional Strength, Safety, Therapeutic Exercise, Transfers Treatment Duration: Aug 21, 2020 Frequency: At least 5 of 7 days/Wk (IRF) Estimated Hrs Per Day: 1 hour per day Patient and/or Family Agrees t: Yes Safety Risks/Education Patient Education: Correct Positioning Teaching Recipient: Patient Teaching Methods: Demonstration, Discussion Response to Teaching: Verbalize Understanding, Return Demonstration, Reinforcement Needed Time/GCodes Time In: 1350 Time Out: 1420 Total Billed Treatment Time: 30 Total Billed Treatment 1,FA15m,EX15m GEE ACUNA RAILROAD COMMISSIONER Jul 28, 2020 14:22
[2020-07-28 17:09] VITALS: BP 110/56
[2020-07-28] MEDS: guaiFENesin/CODEINE (ROBITUSSIN AC) 10ML UDC PO PRN (18:32)
--- NOTE | 2020-07-28 19:36 | NUR ---
second drsg change for night done by wound care at 1615
[2020-07-28] MEDS: SIMvastatin 20 MG (ZOCOR) TAB PO SCH (22:16)
--- NOTE | 2020-07-29 05:30 | NUR ---
pt diaphoretic, resp rate 36, O2 sat 60%. O2 increased to 6 liters. RT tx started.
[2020-07-29] MEDS: RT-ALBUTEROL/IPRATROPIUM 3 ML (DUONEB) VIAL INH SCH (05:42)
[2020-07-29 05:45] VITALS: BP 112/61
[2020-07-29] MEDS ORDERED: FUROSEMIDE 40 MG/4 ML INJ (LASIX) ONE (06:14)
--- NOTE | 2020-07-29 06:15 | NUR ---
O2 up to 8 liter per RT suggestion to change to High flow NC. Dr Sharma notified of pt condition and treatment done. orders received, lasix given and lab drawn. supervisor product inspection called assistance.
[2020-07-29 06:30] VITALS: BP 126/59
[2020-07-29] MEDS ORDERED: FUROSEMIDE 40 MG/4 ML INJ (LASIX) IVP ONE (06:30)
--- NOTE | 2020-07-29 06:30 | NUR ---
pt `respiratory effort improved and rate decreased, O2 sat 93%/
[2020-07-29 06:40] LABS: ABG BASE EXCESS 17.5 MMOL/L (-2.5-2.5); ABG OXYGEN SATURATION 57 % (94-100); ABG PO2 43 MMHG (79-93); ABG TCO2 47.4 MMOL/L (21.0-31.0)
--- NOTE | 2020-07-29 06:40 | NUR ---
RT WAS CALLED BY RN TO COME DOWN TO PT IN RESPIRATORY DISTRESS. RT LEFT ANOTHER ROOM WITH A STAT ABG. PT WAS ON 10L WITH 02 SATURATION OF 90%. RT DID STAT ABG ON PT. CONTINUOUS PILLOWCASE CUTTER STATED THAT OR SOUNDED WET. PT IS NOW ON 15L WITH AN 02 SATURATION OF 95%. PT STATES HE IS NOT IN ANY DISTRESS.
[2020-07-29 06:43] LABS: BASOPHILS % (AUTO) 0 % (0-10); EOSINOPHILS % (AUTO) 0 % (0-10); HEMATOCRIT 28 % (40-54); HEMOGLOBIN 8.2 g/dL (13.3-17.7); LYMPHOCYTES # (AUTO) 0.7 10^3/uL (1.0-4.0); LYMPHOCYTES % (AUTO) 4 % (12-44); MEAN CORPUSCULAR HEMOGLOBIN 26 pg (25-34); MEAN CORPUSCULAR HGB CONC 29 g/dL (32-36); MEAN CORPUSCULAR VOLUME 90 fL (80-99); MEAN PLATELET VOLUME 11.1 fL (9.0-12.2); MONOCYTES # (AUTO) 0.7 10^3/uL (0.0-1.0); MONOCYTES % (AUTO) 4 % (0-12); NEUTROPHILS # (AUTO) 15.7 10^3/uL (1.8-7.8); NEUTROPHILS % (AUTO) 91 % (42-75); PLATELET COUNT 213 10^3/uL (130-400); WHITE BLOOD COUNT 17.4 10^3/uL (4.3-11.0)
[2020-07-29 06:47] LABS: ABG PCO2 93 MMHG (35-45)
[2020-07-29 06:48] LABS: ALLENS TEST POS; PATIENT TEMP 37; VENTILATOR NO
[2020-07-29] MEDS: BETHANECHOL 25 MG (URECHOLINE) TAB PO SCH (06:51)
[2020-07-29] MEDS: inSUlin (REGULAR) HUMAN 1 UNIT/0.01 ML (CHARGE PER UNIT) SC SCH (06:51)
--- NOTE | 2020-07-29 07:04 | Diagnostic Imaging Report ---
INDICATION: Hypoxemia, shortness of breath Portable chest 6:47 AM Right IJ Port-A-Cath tip projects over the SVC. There is atelectasis at both lung bases with possible effusions. IMPRESSION: Bilateral basilar infiltrate and/or atelectasis with effusions unchanged from the previous day. Dictated by: Dictated on workstation # [id number]
[2020-07-29 07:06] LABS: ALANINE AMINOTRANSFERASE 68 U/L (0-55); ALBUMIN 2.3 GM/DL (3.2-4.5); ALKALINE PHOSPHATASE 164 U/L (40-136); BILIRUBIN,TOTAL 0.7 MG/DL (0.1-1.0); BUN/CREATININE RATIO 29; CARBON DIOXIDE 41 MMOL/L (21-32); CHLORIDE 88 MMOL/L (98-107); CREATININE SERUM 0.83 MG/DL (0.60-1.30); GFR ESTIMATED > 60; GLUCOSE 228 MG/DL (70-105); POTASSIUM 4.3 MMOL/L (3.6-5.0); SODIUM 138 MMOL/L (135-145); TOTAL PROTEIN 5.1 GM/DL (6.4-8.2)
--- NOTE | 2020-07-29 07:15 | NUR ---
Niece notified of pt transfer to cardiac step down.
--- NOTE | 2020-07-29 07:30 | NUR ---
pt taken to 509 per bed and report given to Michelle WOO
--- NOTE | 2020-07-29 07:45 | Pulmonary Consultation ---
History of Present Illness History of Present Illness Date of Admission Allergies and Home Medications Allergies Coded Allergies: No Known Drug Allergies (Unverified , 11/11/19) Home Medications Clopidogrel Bisulfate 75 Mg Tablet, 75 MG PO DAILY, (Reported) Insulin NPH Human Isophane 100 Unit/1 Ml Vial, 33 UNITS SQ DAILY, (Reported) Insulin NPH Human Isophane 100 Unit/1 Ml Vial, 20 UNITS SQ 1930, (Reported) Insulin Regular, Human 100 Unit/1 Ml Vial, 6 UNITS SQ DAILY, (Reported) Insulin Regular, Human 100 Unit/1 Ml Vial, 5 UNITS SQ 1930, (Reported) Levofloxacin 500 Mg Tablet, 500 MG PO DAILY, (Reported) FILLED 07-12-2020 #6/6 DAY SUPPLY Lisinopril 20 Mg Tablet, 20 MG PO DAILY, (Reported) Simvastatin 20 Mg Tablet, 20 MG PO HS, (Reported) [Bethanechol Chloride] 50 TAB, 50 MG PO QID, (Reported) Past Cvueyoz-Nmijdx-Rsneli Hx Past Med/Social Hx: Reviewed Nursing Past Med/Soc Hx, Reviewed and Corrections made Patient Social History Alcohol Use: Denies Use Recreational Drug Use: No Smoking Status: Never a Smoker 2nd Hand Smoke Exposure: No Recent Foreign Travel: No Recent Hopitalizations: Yes Immunizations Up To Date Tetanus Booster (TDap): Unknown Date of Pneumonia Vaccine: Jun 08, 2013 Date of Influenza Vaccine: Jun 13, 2020 Seasonal Allergies Seasonal Allergies: No Past Medical History Surgeries: Yes (BILAT BKA, SEVERAL I&D'S, COLECTOMY WTIH RETURN TO SURGERY, colon resection) Amputation, Orthopedic, Prostatectomy Respiratory: Yes (Pt states he was COVID + in June, out of quarantine now) Pneumonia Currently Using CPAP: No Currently Using BIPAP: No Cardiac: Yes (heart murmur) Atrial Fibrillation (07/18/20 [facility]), Heart Murmur, High Cholesterol, Hypertension Neurological: Yes (RT HAND WEAKNESS/TREMORS SINCE TIA) Neuropathy, TIA Sexually Transmitted Disease: No HIV/AIDS: No Genitourinary: Yes Benign Prostatic Hyperpl, Bladder Infection, Neurogenic Bladder Gastrointestinal: Yes (COLON CANCER) Musculoskeletal: Yes (BILATERAL LOWER EXTREMITY ABOVE ANKLE AMPUTEE) Amputee Endocrine: Yes Diabetes, Insulin dep Are Your Blood Sugars Over 250: No HEENT: Yes (WEARS READING GLASSES) Cataract Cancer: Yes Colon Did You Recieve Any Treatments: Yes What Type of Treatment Did You: Chemotherapy, Surgical Intervention LAST CHEMO TX ON 2019, Psychosocial: No Integumentary: No Blood Disorders: No Adverse Reaction/Blood Tranf: No (HAS HAD BLOOD WITH NO REACTION) Family Medical History Patient reports no known family medical history. No Pertinent Family Hx Sepsis Event Evaluation Height, Weight, BMI Height: 6'2.00" Weight: 201lbs. 5.0oz. 91.219011ig; 38.78 BMI Method:Stated Exam Exam Vital Signs Date Time Temp Pulse Resp B/P (MAP) Pulse Ox O2 Delivery O2 Flow Rate FiO2 07/29/20 06:30 98 24 126/59 (81) 93 High Flow N/C 15.00 07/29/20 06:00 96 26 82 High Flow N/C 8.00 07/29/20 05:45 36.0 93 32 112/61 (78) 74 Nasal Cannula 6.00 07/28/20 20:15 94 Nasal Cannula 3.00 07/28/20 19:49 102 07/28/20 17:09 36.6 92 18 110/56 (74) 94 Nasal Cannula 3.00 07/28/20 12:32 100 07/28/20 09:00 Nasal Cannula 3.00 I & O 07/29/20 07:00 Intake Total 840 ml Output Total 1650 ml Balance -810 ml Height & Weight Height: 6'2.00" Weight: 201lbs. 5.0oz. 91.603972zd; 38.78 BMI Method:Stated General Appearance: No Apparent Distress, WD/WN, Chronically ill HEENT: PERRL/EOMI, Normal ENT Inspection, Pharynx Normal Neck: Full Range of Motion, Normal Inspection, Non Tender, Supple, Carotid Bruit Respiratory: Chest Non Tender, Lungs Clear, No Accessory Muscle Use, No Respiratory Distress, Decreased Breath Sounds Cardiovascular: Regular Rate, Rhythm, No Edema, No Gallop, No JVD, No Murmur, Normal Peripheral Pulses, Tachycardia Capillary Refill: Less Than 3 Seconds Extremity: Normal Capillary Refill, Normal Inspection, Normal Range of Motion, Non Tender, No Calf Tenderness Neurologic/Psychiatric: Alert, Oriented x3, No Motor/Sensory Deficits, Normal Mood/Affect, Abnormal Gait, Motor Weakness (generalized), Other (bilateral BKA's) Skin: Normal Color, Warm/Dry Lymphatic: No Adenopathy Results Lab Laboratory Tests 07/28/20 07:15 07/29/20 06:15 MIGNON VILLEGAS,MED STUDENT Jul 29, 2020 07:45
--- NOTE | 2020-07-29 10:56 | NUR ---
CM/SS PATIENT CARE CONFERENCE Patient moved to acute Medical and is on GRANT status from ARU up to midnight of 07/31/20. Continue to follow patient progress relative to return to ARU and resume of case management activities.
--- NOTE | 2020-07-29 11:25 | Discharge Summary ---
Diagnosis/Chief Complaint Date of Admission Jul 24, 2020 at 11:40 Date of Discharge Discharge Diagnosis Assessment: Debility New onset AF w/RVR scheduled for cardioversion 07/28/20 but did not require since spontaneously converted 07/28/20 0700 Chronic bilateral BKA's DM insulin requiring s/p C diff colitis now resolved after Vanc PO Recent UTI Recent PNA Sinus tachycardia Aortic stenosis Systolic dysfunction h/o TIA Colon cancer s/p resection 10/2019 Dr Bautista s/p nephrostomy tubes Spring 2019 [facility] Anemia Anasarca Plan: IRF protocol Monitor stools O2 Insulin Cardiology appreciated 07/25/20: Add iron level to labs Monitor protein intake Fall risk Monitor tachycardia 07/26/20: Protein consumption Monitor edema Increased insulin 07/27/20: Diuresis Cardioversion Monitor closely Check CXR and labs and PCT 07/28/20: Diuresis Monitor lungs Monitor edema (1) Debility (2) Atrial fibrillation with rapid ventricular response (3) Urinary tract infection associated with catheterization of urinary tract Status: Acute (4) Diabetes mellitus Status: Chronic (5) Colon cancer Status: Chronic (6) Hypertension Status: Chronic (7) History of TIA (transient ischemic attack) Status: Chronic (8) Hyperlipidemia Status: Chronic (9) Cardiac murmur Discharge Summary Discharge Physical Examination Allergies: Coded Allergies: No Known Drug Allergies (Unverified , 11/11/19) Vitals & I&Os Vital Signs Date Time Temp Pulse Resp B/P (MAP) Pulse Ox O2 Delivery O2 Flow Rate FiO2 07/29/20 06:30 98 24 126/59 (81) 93 High Flow N/C 15.00 07/29/20 05:45 36.0 General Appearance: Severe Distress Respiratory: Other (decreased BS) Hospital Course Was the Problem List Reviewed?: Yes Patient had a short hospital course after admitted after lengthy stay at [facility] [facility] for resistant UTI and PNA then moved to [facility] for AF w/RVR new onset and C diff then became debilitated requiring IRF prior to DC home on but patient had abrupt change of status with hypercapnia requiring transfer to [facility] and Dr Davis consultation. Patient had been improving and abrupt change was unexpected. Labs (last 24 hrs) Laboratory Tests 07/24/20 15:44: Glucometer 237H 07/24/20 20:58: Glucometer 221H 07/25/20 05:31: Glucometer 136H 07/25/20 11:47: Glucometer 260H 07/25/20 12:43: White Blood Count 14.9H, Red Blood Count 3.05L, Hemoglobin 8.1L, Hematocrit 28L, Mean Corpuscular Volume 91, Mean Corpuscular Hemoglobin 27, Mean Corpuscular Hemoglobin Concent 29L, Red Cell Distribution Width 21.0H, Platelet Count 194, M jason Platelet Volume 11.5, Sodium Level 135, Potassium Level 4.5, Chloride Level 96L, Carbon Dioxide Level 32, Anion Gap 7, Blood Urea Nitrogen 20H, Creatinine 0.71, Estimat Glomerular Filtration Rate > 60, BUN/Creatinine Ratio 28, Glucose Level 322H, Calcium Level 7.4L, Corrected Calcium 9.0, Iron Level 10L, Total Bilirubin 0.4, Aspartate Amino Transf (AST/SGOT) 15, Alanine Aminotransferase (ALT/SGPT) 17, Alkaline Phosphatase 155H, Total Protein 4.4L, Albumin 2.0L 07/25/20 17:50: Glucometer 247H 07/25/20 21:20: Glucometer 256H 07/26/20 05:13: White Blood Count 16.0H, Red Blood Count 3.04L, Hemoglobin 8.1L, Hematocrit 27L, Mean Corpuscular Volume 89, Mean Corpuscular Hemoglobin 27, Mean Corpuscular Hemoglobin Concent 30L, Red Cell Distribution Width 20.5H, Platelet Count 214, Mean Platelet Volume 12.0, Sodium Level 137, Potassium Level 4.2, Chloride Level 96L, Carbon Dioxide Level 33H, Anion Gap 8, Blood Urea Nitrogen 20H, Creatinine 0.62, Estimat Glomerular Filtration Rate > 60, BUN/Creatinine Ratio 32, Glucose Level 161H, Calcium Level 7.3L, Corrected Calcium 8.8, Total Bilirubin 0.4, Aspartate Amino Transf (AST/SGOT) 12, Alanine Aminotransferase (ALT/SGPT) 14, Alkaline Phosphatase 149H, Total Protein 4.7L, Albumin 2.1L, Immature Granulocyte % (Auto) 1, Neutrophils (%) (Auto) 88H, Lymphocytes (%) (Auto) 3L, Monocytes (%) (Auto) 6, Eosinophils (%) (Auto) 2, Basophils (%) (Auto) 0, Neutrophils # (Auto) 14.1H, Lymphocytes # (Auto) 0.5L, Monocytes # (Auto) 0.9, Eosinophils # (Auto) 0.3, Basophils # (Auto) 0.0, Immature Granulocyte # (Auto) 0.1 07/26/20 11:28: Glucometer 194H 07/26/20 15:33: Glucometer 174H 07/26/20 20:22: Glucometer 166H 07/27/20 05:22: Glucometer 57*L 07/27/20 06:23: Glucometer 85 07/27/20 10:46: Glucometer 121H 07/27/20 15:30: Glucometer 273H 07/27/20 20:29: Glucometer 331H 07/28/20 05:44: Glucometer 131H 07/28/20 07:15: White Blood Count 16.0H, Red Blood Count 2.99L, Hemoglobin 7.9L, Hematocrit 27L, Mean Corpuscular Volume 89, Mean Corpuscular Hemoglobin 26, Mean Corpuscular Hemoglobin Concent 30L, Red Cell Distribution Width 20.2H, Platelet Count 202, Mean Platelet Volume 11.2, Immature Granulocyte % (Auto) 1, Neutrophils (%) (Auto) 89H, Lymphocytes (%) (Auto) 3L, Monocytes (%) (Auto) 5, Eosinophils (%) (Auto) 2, Basophils (%) (Auto) 0, Neutrophils # (Auto) 14.2H, Lymphocytes # (Auto) 0.4L, Monocytes # (Auto) 0.9, Eosinophils # (Auto) 0.3, Basophils # (Auto) 0.0, Immature Granulocyte # (Auto) 0.1, Neutrophils % (Manual) 90, Lymphocytes % (Manual) 2, Monocytes % (Manual) 5, Eosinophils % (Manual) 3, Hypochromasia MARKED, Poikilocytosis SLIGHT, Anisocytosis MODERATE, Elliptocytes MODERATE, Sodium Level 138, Potassium Level 3.7, Chloride Level 93L, Carbon Dioxide Level 39H, Anion Gap 6, Blood Urea Nitrogen 17, Creatinine 0.55L, Estimat Glomerular Filtration Rate > 60, BUN/Creatinine Ratio 31, Glucose Level 119H, Calcium Level 7.8L, Corrected Calcium 9.3, Total Bilirubin 0.4, Aspartate Amino Transf (AST/SGOT) 12, Alanine Aminotransferase (ALT/SGPT) 14, Alkaline Phosphatase 149H, Total Protein 5.0L, Albumin 2.1L, Procalcitonin 0.08 07/28/20 10:46: Glucometer 205H 07/28/20 16:01: Glucometer 206H 07/28/20 20:19: Glucometer 265H 07/29/20 05:30: Glucometer 197H 07/29/20 06:15: White Blood Count 17.4H, Red Blood Count 3.14L, Hemoglobin 8.2L, Hematocrit 28L, Mean Corpuscular Volume 90, Mean Corpuscular Hemoglobin 26, Mean Corpuscular Hemoglobin Concent 29L, Red Cell Distribution Width 20.4H, Platelet Count 213, Mean Platelet Volume 11.1, Immature Granulocyte % (Auto) 1, Neutrophils (%) (A uto) 91H, Lymphocytes (%) (Auto) 4L, Monocytes (%) (Auto) 4, Eosinophils (%) (Auto) 0, Basophils (%) (Auto) 0, Neutrophils # (Auto) 15.7H, Lymphocytes # (Auto) 0.7L, Monocytes # (Auto) 0.7, Eosinophils # (Auto) 0.0, Basophils # (Auto) 0.0, Immature Granulocyte # (Auto) 0.2H, Sodium Level 138, Potassium Level 4.3, Chloride Level 88L, Carbon Dioxide Level 41H, Anion Gap 9, Blood Urea Nitrogen 24H, Creatinine 0.83, Estimat Glomerular Filtration Rate > 60, BUN/Creatinine Ratio 29, Glucose Level 228H, Calcium Level 8.0L, Corrected Calcium 9.4, Total Bilirubin 0.7, Aspartate Amino Transf (AST/SGOT) 121H, Alanine Aminotransferase (ALT/SGPT) 68H, Alkaline Phosphatase 164H, B-Type Natriuretic Peptide 670.4H, Total Protein 5.1L, Albumin 2.3L, Procalcitonin 0.13H 07/29/20 06:28: Blood Gas Puncture Site RGHT BRACHIAL, Blood Gas Patient Temperature 37, Arterial Blood pH 7.30*L, Arterial Blood Partial Pressure CO2 93*H, Arterial Blood Partial Pressure O2 43L, Arterial Blood HCO3 45*H, Arterial Blood Total CO2 47.4H, Arterial Blood Oxygen Saturation 57L, Arterial Blood Base Excess 17.5H, Thai Test POS, Blood Gas Ventilator Setting NO, Blood Gas Inspired Oxygen NA 07/29/20 10:57: Glucometer 194H Pending Labs Laboratory Tests 07/24/20 15:44: Glucometer 237 07/24/20 20:58: Glucometer 221 07/25/20 05:31: Glucometer 136 07/25/20 11:47: Glucometer 260 07/25/20 12:43: White Blood Count 14.9, Red Blood Count 3.05, Hemoglobin 8.1, Hematocrit 28, Mean Corpuscular Volume 91, Mean Corpuscular Hemoglobin 27, Mean Corpuscular Hemoglobin Concent 29, Red Cell Distribution Width 21.0, Platelet Count 194, Mean Platelet Volume 11.5, Sodium Level 135, Potassium Level 4.5, Chloride Level 96, Carbon Dioxide Level 32, Anion Gap 7, Blood Urea Nitrogen 20, Creatinine 0.71, Estimat Glomerular Filtration Rate > 60, BUN/Creatinine Ratio 28, Glucose Level 322, Calcium Level 7.4, Corrected Calcium 9.0, Iron Level 10, Total Bilirubin 0.4, Aspartate Amino Transf (AST/SGOT) 15, Alanine Aminotransferase (ALT/SGPT) 17, Alkaline Phosphatase 155, Total Protein 4.4, Albumin 2.0 07/25/20 17:50: Glucometer 247 07/25/20 21:20: Glucometer 256 07/26/20 05:13: White Blood Count 16.0, Red Blood Count 3.04, Hemoglobin 8.1, Hematocrit 27, Mean Corpuscular Volume 89, Mean Corpuscular Hemoglobin 27, Mean Corpuscular Hemoglobin Concent 30, Red Cell Distribution Width 20.5, Platelet Count 214, M jason Platelet Volume 12.0, Sodium Level 137, Potassium Level 4.2, Chloride Level 96, Carbon Dioxide Level 33, Anion Gap 8, Blood Urea Nitrogen 20, Creatinine 0.62, Estimat Glomerular Filtration Rate > 60, BUN/Creatinine Ratio 32, Glucose Level 161, Calcium Level 7.3, Corrected Calcium 8.8, Total Bilirubin 0.4, Aspartate Amino Transf (AST/SGOT) 12, Alanine Aminotransferase (ALT/SGPT) 14, Alkaline Phosphatase 149, Total Protein 4.7, Albumin 2.1, Immature Granulocyte % (Auto) 1, Neutrophils (%) (Auto) 88, Lymphocytes (%) (Auto) 3, Monocytes (%) (Auto) 6, Eosinophils (%) (Auto) 2, Basophils (%) (Auto) 0, Neutrophils # (Auto) 14.1, Lymphocytes # (Auto) 0.5, Monocytes # (Auto) 0.9, Eosinophils # (Auto) 0.3, Basophils # (Auto) 0.0, Immature Granulocyte # (Auto) 0.1 07/26/20 11:28: Glucometer 194 07/26/20 15:33: Glucometer 174 07/26/20 20:22: Glucometer 166 07/27/20 05:22: Glucometer 57 07/27/20 06:23: Glucometer 85 07/27/20 10:46: Glucometer 121 07/27/20 15:30: Glucometer 273 07/27/20 20:29: Glucometer 331 07/28/20 05:44: Glucometer 131 07/28/20 07:15: White Blood Count 16.0, Red Blood Count 2.99, Hemoglobin 7.9, Hematocrit 27, Mean Corpuscular Volume 89, Mean Corpuscular Hemoglobin 26, Mean Corpuscular Hemoglobin Concent 30, Red Cell Distribution Width 20.2, Platelet Count 202, Mean Platelet Volume 11.2, Immature Granulocyte % (Auto) 1, Neutrophils (%) (Auto) 89, Lymphocytes (%) (Auto) 3, Monocytes (%) (Auto) 5, Eosinophils (%) (Auto) 2, Basophils (%) (Auto) 0, Neutrophils # (Auto) 14.2, Lymphocytes # (Auto) 0.4, Monocytes # (Auto) 0.9, Eosinophils # (Auto) 0.3, Basophils # (Auto) 0.0, Immature Granulocyte # (Auto) 0.1, Neutrophils % (Manual) 90, Lymphocytes % (Manual) 2, Monocytes % (Manual) 5, Eosinophils % (Manual) 3, Hypochromasia MARKED, Poikilocytosis SLIGHT, Anisocytosis MODERATE, Elliptocytes MODERATE, Sodium Level 138, Potassium Level 3.7, Chloride Level 93, Carbon Dioxide Level 39, Anion Gap 6, Blood Urea Nitrogen 17, Creatinine 0.55, Estimat Glomerular Filtration Rate > 60, BUN/Creatinine Ratio 31, Glucose Level 119, Calcium Level 7.8, Corrected Calcium 9.3, Total Bilirubin 0.4, Aspartate Amino Transf (AST/SGOT) 12, Alanine Aminotransferase (ALT/SGPT) 14, Alkaline Phosphatase 149, Total Protein 5.0, Albumin 2.1, Procalcitonin 0.08 12/9/20 10:46: Glucometer 205 07/28/20 16:01: Glucometer 206 07/28/20 20:19: Glucometer 265 07/29/20 05:30: Glucometer 197 07/29/20 06:15: White Blood Count 17.4, Red Blood Count 3.14, Hemoglobin 8.2, Hematocrit 28, Mean Corpuscular Volume 90, Mean Corpuscular Hemoglobin 26, Mean Corpuscular Hemoglobin Concent 29, Red Cell Distribution Width 20.4, Platelet Count 213, Mean Platelet Volume 11.1, Immature Granulocyte % (Auto) 1, Neutrophils (%) (Auto) 91, Lymphocytes (%) (Auto) 4, Monocytes (%) (Auto) 4, Eosinophils (%) (Auto) 0, Basophils (%) (Auto) 0, Neutrophils # (Auto) 15.7, Lymphocytes # (Auto) 0.7, Monocytes # (Auto) 0.7, Eosinophils # (Auto) 0.0, Basophils # (Auto) 0.0, Immature Granulocyte # (Auto) 0.2, Sodium Level 138, Potassium Level 4.3, Chloride Level 88, Carbon Dioxide Level 41, Anion Gap 9, Blood Urea Nitrogen 24, Creatinine 0.83, Estimat Glomerular Filtration Rate > 60, BUN/Creatinine Ratio 29, Glucose Level 228, Calcium Level 8.0, Corrected Calcium 9.4, Total Bilirubin 0.7, Aspartate Amino Transf (AST/SGOT) 121, Alanine Aminotransferase (ALT/SGPT) 68, Alkaline Phosphatase 164, B-Type Natriuretic Peptide 670.4, Total Protein 5.1, Albumin 2.3, Procalcitonin 0.13 07/29/20 06:28: Blood Gas Puncture Site RGHT BRACHIAL, Blood Gas Patient Temperature 37, Arterial Blood pH 7.30, Arterial Blood Partial Pressure CO2 93, Arterial Blood Partial Pressure O2 43, Arterial Blood HCO3 45, Arterial Blood Total CO2 47.4, Arterial Blood Oxygen Saturation 57, Arterial Blood Base Excess 17.5, Thai Test POS, Blood Gas Ventilator Setting NO, Blood Gas Inspired Oxygen NA 07/29/20 10:57: Glucometer 194 Discharge Home Medications: Active Scripts Active Reported Levofloxacin 500 Mg Tablet 500 Mg PO DAILY FILLED 07-12-2020 #6/6 DAY SUPPLY [Bethanechol Chloride] 50 Tab 50 Mg PO QID Plavix (Clopidogrel Bisulfate) 75 Mg Tablet 75 Mg PO DAILY Novolin R (Insulin Regular, Human) 100 Unit/1 Ml Vial 5 Units SQ 1930 Novolin N (Insulin NPH Human Isophane) 100 Unit/1 Ml Vial 20 Units SQ 1930 Lisinopril 20 Mg Tablet 20 Mg PO DAILY Simvastatin 20 Mg Tablet 20 Mg PO HS Novolin R (Insulin Regular, Human) 100 Unit/1 Ml Vial 6 Units SQ DAILY Novolin N (Insulin NPH Human Isophane) 100 Unit/1 Ml Vial 33 Units SQ DAILY Instructions to patient/family Please see electronic discharge instructions given to patient. Diagnosis/Problems Diagnosis/Problems (1) Debility (2) Atrial fibrillation with rapid ventricular response (3) Urinary tract infection associated with catheterization of urinary tract Status: Acute (4) Diabetes mellitus Status: Chronic (5) Colon cancer Status: Chronic (6) Hypertension Status: Chronic (7) History of TIA (transient ischemic attack) Status: Chronic (8) Hyperlipidemia Status: Chronic (9) Cardiac murmur Clinical Quality Measures DVT/VTE Risk/Contraindication: Risk Factor Score Per Nursin RFS Level Per Nursing on Admit: 4+=Very High YAAKOV SMITH DO Jul 29, 2020 11:25
--- NOTE | 2020-07-29 14:33 | Therapy Team Discharge Summary ---
Therapy Discharge Summary Discharge Recommendations Date of Discharge Jul 29, 2020 at 07:30 Physical Therapy Patient came to rehab with debility. Upon evaluation patient was max assist for bed mobility, mod assist for supine <-> sit, and could propel a manual WC 150' with max assist. Patient has been performing bed mobility and transfer training, balance and endurance training, functional strengthening, and education. Patient has had medical issues and was transferred from this floor. He did make some progress but didn't meet any of his chcf goals. When he l eft he was performing rolling with independence, supine <-> sit min assist, sliding board transfers with mod assist and propelling a WC with min assist. Patient will be discharged from PT at this time. Occupational Therapy Decreased Activ Tolerance, Decreased UE Strength, Dependent Transfers, Edema, Impaired Funct Balance, Impaired I ADL's, Impaired Self-Care Skills PT Correction Goals Car Wash Attendant Automatic Goals PT Car Wash Attendant Automatic Goals Time Frame: Aug 21, 2020 Roll Left to Right (QC): 6 Sit to Lying (QC): 6 Lying-Sitting on Side/Bed(QC): 6 Sit to Stand (QC): 88 Chair/Tcu-ct-Dfymm Xfer(QC): 6 Car Transfer (QC): 6 Does the Patient Walk: No and Walking Goal NOT indicated Walk 10 feet (QC): 88 Walk 10ft-Uneven Surface(QC): 88 Walk 50ft with 2 Turns (QC): 88 Walk 150 ft (QC): 88 Does the Pt use WC or Scooter?: Yes Wheel 50 feet with 2 turns (QC: 6 1 Step (curb) (QC): 88 4 Steps (QC): 88 12 Steps (QC): 88 Picking up an Object (QC): 6 (factory expert) OT Correction Goals Correction Goals Time Frame: Aug 20, 2020 Eating (QC): 6 Oral Hygiene (QC): 6 Shower/Bathe Self (QC): 4 Upper Body Dressing (QC): 5 Lower Body Dressing (QC): 4 On/Off Footwear (QC): 88 Toileting Hygiene (QC): 3 Toilet/Commode Transfer (QC): 6 1=Demonstrate adherence to instructed precautions during ADL tasks. 2=Patient will verbalize/demonstrate understanding of assistive devices/modifications for ADL. 3=Patient will improve strength/tolerance for activity to enable patient to perform ADL's. KRTEK,YAAKOV PT Jul 29, 2020 14:33
--- NOTE | 2020-07-29 14:46 | Therapy Team Discharge Summary ---
Therapy Discharge Summary Discharge Recommendations Date of Discharge Jul 29, 2020 at 07:30 Occupational Therapy Pt admitted to [facility] 07/24/2020 with debility. At [facility], pt was independent with all ADLS and functional mobility with his LE prosthesis and a cane. Upon evaluation, pt was independent with eating, set up oral care, total assist showering (x2 assist), min A upper body dressing, total assist lower body dressing (x2 assist), and total assist toileting. Pt unable to don LE prosthesis due to ulcer on residual limb. OT txs focus on increasing BUE strength and endurance, and increasing independence with functional mobility and ADLS. Pt made some functional progress towards goals, but only meeting goal of independent level with eating. Pt transferred to another floor in the hospital due to increased medical complexity. D/C from OT at this time. Decreased Activ Tolerance, Decreased UE Strength, Dependent Transfers, Edema, Impaired Funct Balance, Impaired I ADL's, Impaired Self-Care Skills PT Fiberglass Container Winding Operator Goals Fdc Goals PT Fdc Goals Time Frame: Aug 21, 2020 Roll Left to Right (QC): 6 Sit to Lying (QC): 6 Lying-Sitting on Side/Bed(QC): 6 Sit to Stand (QC): 88 Chair/Fbl-vn-Nygox Xfer(QC): 6 Car Transfer (QC): 6 Does the Patient Walk: No and Walking Goal NOT indicated Walk 10 feet (QC): 88 Walk 10ft-Uneven Surface(QC): 88 Walk 50ft with 2 Turns (QC): 88 Walk 150 ft (QC): 88 Does the Pt use WC or Scooter?: Yes Wheel 50 feet with 2 turns (QC: 6 1 Step (curb) (QC): 88 4 Steps (QC): 88 12 Steps (QC): 88 Picking up an Object (QC): 6 (pillow filler) OT Fdc Goals Fdc Goals Time Frame: Aug 20, 2020 Eating (QC): 6 (met) Oral Hygiene (QC): 6 (not met, set up) Shower/Bathe Self (QC): 4 (not met, mod A) Upper Body Dressing (QC): 5 (not met, min A) Lower Body Dressing (QC): 4 (not met, max A) On/Off Footwear (QC): 88 Toileting Hygiene (QC): 3 (not met, total assist) Toilet/Commode Transfer (QC): 6 (not met) 1=Demonstrate adherence to instructed precautions during ADL tasks. 2=Patient will verbalize/demonstrate understanding of assistive devices/modifications for ADL. 3=Patient will improve strength/tolerance for activity to enable patient to perform ADL's. GRECIA CHANG OT Jul 29, 2020 14:46
== END 2020-07-29 07:30 | disposition short-term general hospital (02) | DRG 948 ==
LOC: UNDODISIN 13:33
PROVIDERS: ADMIT Internal Medicine; ATTEND Internal Medicine
DX: R53.1 Weakness (principal); L97.919 Non-pressure chronic ulcer of unspecified part of right lower leg with unspecified severity; C18.9 Malignant neoplasm of colon, unspecified; I48.0 Paroxysmal atrial fibrillation; R60.1 Generalized edema; D64.9 Anemia, unspecified; T87.89 Other complications of amputation stump; Z89.512 Acquired absence of left leg below knee; Z66 Do not resuscitate; I35.0 Nonrheumatic aortic (valve) stenosis; R00.0 Tachycardia, unspecified; I11.0 Hypertensive heart disease with heart failure; I50.9 Heart failure, unspecified; E78.00 Pure hypercholesterolemia, unspecified; E11.40 Type 2 diabetes mellitus with diabetic neuropathy, unspecified; N40.1 Benign prostatic hyperplasia with lower urinary tract symptoms; N31.9 Neuromuscular dysfunction of bladder, unspecified; R06.89 Other abnormalities of breathing; Z79.4 Long term (current) use of insulin; Z87.01 Personal history of pneumonia (recurrent); Z87.440 Personal history of urinary (tract) infections; Z86.73 Personal history of transient ischemic attack (TIA), and cerebral infarction without residual deficits; Z86.19 Personal history of other infectious and parasitic diseases
CPT/HCPCS: 36415; 71045; 80053; 82805; 82962; 83540; 83880; 84145; 85007; 85025; 85027; 93005; 94640; 94760

== ENCOUNTER → 2020-07-28 | Day surgery (SDC) | payer MEDICARE, OTHER ==
[~2020-07-28] MED LIST changes: -ACETAMINOPHEN 500 MG TAB (TYLENOL) PO PRN; -ALPRAZolam 0.25 MG (XANAX) TAB PO PRN; -BISACODYL 10 MG SUPP (DULCOLAX) PR PRN; -CALCIUM CARBONATE 500 MG (TUMS) TAB.CHEW PO PRN; -DOCUSATE SODIUM 100 MG (COLACE) CAP PO PRN; -DOCUSATE SODIUM 100 MG (COLACE) CAP PO SCH; -FLEET ENEMA ADULT 1 EA BTL PR PRN; -LACTULOSE SYRUP 10GM/15ML (ENULOSE) 30ML UDC PO PRN; -LOPERAMIDE 2 MG (IMODIUM) TABLET PO PRN; -MELATONIN 3 MG TABLET PO PRN; -ONDANSETRON 4 MG (ZOFRAN) ORAL DISSOLVE TAB PO PRN; -SENNA W/DOCUSATE (SENOKOT S) TABLET PO SCH; -diphenhydrAMINE 25 MG TAB (BENADRYL) PO PRN; -guaiFENesin/CODEINE (ROBITUSSIN AC) 10ML UDC PO PRN; -polyethylene glycoL POWDER 17 GM (MIRALAX) PACK PO SCH
== END ==
LOC: CATH 08:27
PROVIDERS: ATTEND Internal Medicine Cardiovascular Disease
DX: J96.90 Respiratory failure, unspecified, unspecified whether with hypoxia or hypercapnia (principal); I35.0 Nonrheumatic aortic (valve) stenosis; E85.4 Organ-limited amyloidosis; I50.9 Heart failure, unspecified; I48.0 Paroxysmal atrial fibrillation; I11.0 Hypertensive heart disease with heart failure; E11.9 Type 2 diabetes mellitus without complications; E78.00 Pure hypercholesterolemia, unspecified; E11.41 Type 2 diabetes mellitus with diabetic mononeuropathy; Z86.73 Personal history of transient ischemic attack (TIA), and cerebral infarction without residual deficits; N40.0 Benign prostatic hyperplasia without lower urinary tract symptoms; N31.9 Neuromuscular dysfunction of bladder, unspecified; E78.5 Hyperlipidemia, unspecified; Z79.01 Long term (current) use of anticoagulants; Z79.4 Long term (current) use of insulin; Z79.899 Other long term (current) drug therapy; Z87.891 Personal history of nicotine dependence

== ENCOUNTER 2020-07-29 07:25 | Inpatient (IN) | payer MEDICARE, OTHER ==
[2020-07-29] VITALS (10 sets, daily range): BP systolic 95–153; BP diastolic 55–88
[~2020-07-29] VITALS: Ht 165 cm; Wt 96.0 kg
--- NOTE | 2020-07-29 08:17 | Pulmonary Consultation ---
MIGNON VILLEGAS,MED STUDENT 07/29/20 0817: History of Present Illness History of Present Illness Date Seen by Provider: Jul 29, 2020 Time Seen by Provider: 07:30 Date of Admission History of Present Illness Patient is a 75yo male with a PMH of PAF, HTN, aortic stenosis, IDDM, and colon cancer who was recently admitted to [facility] for complicated UTI and was transferred back to [facility] due to new onset A-fib. At [facility] he developed wheezing and CXR was suggestive of PNA. Per cardiology he was started on Cardi zem and metoprolol, and anticoagulation. He was then diagnosed with C. diff colitis and completed a course of vancomycin. He had been progressing in IRF until he developed respiratory distress this morning. He was placed on 15L O2 via NC and transferred to cardiac step-down unit. Allergies and Home Medications Allergies Coded Allergies: No Known Drug Allergies (Unverified , 11/11/19) Home Medications Clopidogrel Bisulfate 75 Mg Tablet, 75 MG PO DAILY, (Reported) Insulin NPH Human Isophane 100 Unit/1 Ml Vial, 33 UNITS SQ DAILY, (Reported) Insulin NPH Human Isophane 100 Unit/1 Ml Vial, 20 UNITS SQ 1930, (Reported) Insulin Regular, Human 100 Unit/1 Ml Vial, 6 UNITS SQ DAILY, (Reported) Insulin Regular, Human 100 Unit/1 Ml Vial, 5 UNITS SQ 1930, (Reported) Levofloxacin 500 Mg Tablet, 500 MG PO DAILY, (Reported) FILLED 07-12-2020 #6/6 DAY SUPPLY Lisinopril 20 Mg Tablet, 20 MG PO DAILY, (Reported) Simvastatin 20 Mg Tablet, 20 MG PO HS, (Reported) [Bethanechol Chloride] 50 TAB, 50 MG PO QID, (Reported) Past Rsftixd-Edhwty-Wkiqvt Hx Patient Social History 2nd Hand Smoke Exposure: No Recent Hopitalizations: Yes Immunizations Up To Date Tetanus Booster (TDap): Unknown Date of Pneumonia Vaccine: Jun 08, 2013 Date of Influenza Vaccine: Jun 13, 2020 Seasonal Allergies Seasonal Allergies: No Past Medical History Surgeries: Yes (BILAT BKA, SEVERAL I&D'S, COLECTOMY WTIH RETURN TO SURGERY, colon resection) Amputation, Orthopedic, Prostatectomy Respiratory: Yes (Pt states he was COVID + in June, out of quarantine now) Pneumonia Currently Using CPAP: No Currently Using BIPAP: No Cardiac: Yes (heart murmur) Atrial Fibrillation, Heart Murmur, High Cholesterol, Hypertension Neurological: Yes (RT HAND WEAKNESS/TREMORS SINCE TIA) Neuropathy, TIA Sexually Transmitted Disease: No HIV/AIDS: No Genitourinary: Yes Benign Prostatic Hyperpl, Bladder Infection, Neurogenic Bladder Gastrointestinal: Yes (COLON CANCER) Musculoskeletal: Yes (BILATERAL LOWER EXTREMITY ABOVE ANKLE AMPUTEE) Amputee Endocrine: Yes Diabetes, Insulin dep HEENT: Yes (WEARS READING GLASSES) Cataract Cancer: Yes Colon Did You Recieve Any Treatments: Yes What Type of Treatment Did You: Chemotherapy, Surgical Intervention Psychosocial: No Integumentary: No Blood Disorders: No Adverse Reaction/Blood Tranf: No (HAS HAD BLOOD WITH NO REACTION) Family Medical History Patient reports no known family medical history. No Pertinent Family Hx Review of Systems Constitutional: Malaise; No: Chills ENT: No: Nose congestion, Throat pain Respiratory: Cough, Wheezing, Sputum; No: Shortness of breath, Pleuritic Pain Cardiovascular: No: Chest Pain, Palpitations Gastrointestinal: No: Nausea, Vomiting, Abdominal Pain Neurological: No: Numbness, Change in speech Sepsis Event Evaluation Height, Weight, BMI Height: 6'2.00" Weight: 201lbs. 5.0oz. 91.888058tt; 38.78 BMI Method:Stated Exam Exam Height & Weight Height: 6'2.00" Weight: 201lbs. 5.0oz. 91.608844ct; 38.78 BMI Method:Stated General Appearance: No Apparent Distress, Chronically ill HEENT: PERRL/EOMI, Pharynx Normal Neck: Full Range of Motion, Non Tender Respiratory: Chest Non Tender, No Accessory Muscle Use, Rales; No Wheezing Cardiovascular: Regular Rate, Rhythm, Systolic Murmur Gastrointestinal: non tender, soft Extremity: Non Tender, Other (Bilateral BKA) Neurologic/Psychiatric: Alert, Oriented x3 JEFFERY MIR DO 07/29/20 1446: Allergies and Home Medications Allergies Coded Allergies: No Known Drug Allergies (Unverified , 11/11/19) Home Medications Clopidogrel Bisulfate 75 Mg Tablet, 75 MG PO DAILY, (Reported) Insulin NPH Human Isophane 100 Unit/1 Ml Vial, 33 UNITS SQ DAILY, (Reported) Insulin NPH Human Isophane 100 Unit/1 Ml Vial, 20 UNITS SQ 1930, (Reported) Insulin Regular, Human 100 Unit/1 Ml Vial, 6 UNITS SQ DAILY, (Reported) Insulin Regular, Human 100 Unit/1 Ml Vial, 5 UNITS SQ 1929, (Reported) Levofloxacin 500 Mg Tablet, 500 MG PO DAILY, (Reported) FILLED 07-12-2020 #6/6 DAY SUPPLY Lisinopril 20 Mg Tablet, 20 MG PO DAILY, (Reported) Simvastatin 20 Mg Tablet, 20 MG PO HS, (Reported) [Bethanechol Chloride] 50 TAB, 50 MG PO QID, (Reported) Past Wqooioq-Zrglzp-Wdvxgu Hx Family Medical History Patient reports no known family medical history. Review of Systems Time Seen by Provider: 14:41 Assessment/Plan Assessment/Plan Acute respiratory distress MIGNON VILLEGAS,MED STUDENT Jul 29, 2020 08:17 JEFFERY MIR DO Jul 29, 2020 14:46
--- NOTE | 2020-07-29 08:50 | Cardiology Progress Note ---
Subjective Date Seen by Provider: Jul 29, 2020 Time Seen by Provider: 08:46 Subjective/Events-last exam Patient is sitting up in bed, having worsening dyspnea. Denies any chest pain. Review of Systems General: No Chills, No Night Sweats, No Fatigue, No Malaise, No Appetite, No Other HEENT: No Head Aches, No Visual Changes, No Eye Pain, No Ear Pain, No Dysphasia, No Sinus Congestion, No Post Nasal Drip, No Sore Throat, No Other Pulmonary: Dyspnea; No Cough, No Pleuritic Chest Pain, No Other Cardiovascular: Edema; No: Chest Pain, Palpitations, Orthopnea, Paroxysmal Noc. Dyspnea, Lt Headedness, Other Objective-Cardiology Exam Last Set of Vital Signs Vital Signs 07/29/20 07/29/20 09:54 10:19 Temp 36.4 Pulse 96 Resp 22 B/P (MAP) 107/68 Pulse Ox 95 O2 Delivery Nasal Cannula O2 Flow Rate 10.00 Capillary Refill : General: Alert, Oriented X3, Cooperative HEENT: Atraumatic, PERRLA Neck: Supple, No JVD, No Thyromegaly Lungs: Other (bilat rales) Heart: Regular Rate, Normal S1, Normal S2, Other (SM @ LSB) Abdomen: Normal Bowel Sounds, Soft Extremities: No Clubbing, No Cyanosis, Other (+1 edema BUE) Skin: No Rashes, No Significant Lesion Neuro: Normal Speech, Cranial Nerves 3-12 NL Psych/Mental Status: Mood NL A/P-Cardiology Admission Diagnosis Pneumonia PAF HTN Assessment/Plan Pneumonia - worsening dyspnea this morning, CXR showing bilat infiltrates with effusion. Dr. Davis managing. UTI - management per Medical services C-diff (+), treated and improved, managed by medical services. Anemia of undetermined etiology, worsening H/H, managed by the Medical service Paroxysmal atrial fibrillation/flutter (first diagnosed on tele of 07-19-2020), converted to sinus rhythm. Continue to monitor Aortic stenosis- Echocardiogram of Jul 14, 2020 showed LVEF 55-65%. Mod to severe aortic stenosis. Peak gradient 55mHg, mean gradient 41 mmHg, valve area 1.0 cm2. PASP 40-45mmHg, discussed possibility of AVR. Elevated LFT's, History of sigmoid colon resection, had adhesion managed in August 2019. Hypertension, controlled, continue to monitor. Hyperlipidemia, continue to monitor. Peripheral edema, continue to diurese. 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 Diabetes mellitus, poorly controlled. History of TIA in 2003 at [facility]. Currently on apixaban stroke prophylaxis Patient was seen and evaluated with Mary, examination performed, management plan was discussed, agree with the current scribed note, I made few changes to the note using Italic font Patient was transferred to cardiac stepdown for acute respiratory failure and shortness of breath. Appear to be in moderate distress. Having dyspnea at rest and using 5 L oxygen Has bilateral rhonchi on exam and still having systolic murmur of aortic stenosis Has poor response to aggressive diuresis. We will continue with diuretic and continue to monitor his tolerance and response aortic valve evaluation showed moderate to severe aortic valve stenosis, I am concerned that it might be worse compared to the study of July 14, I will repeat 2-D echo today and I discussed with them the possibility of needing aortic valve replacement if he has severe aortic stenosis and continue to have signs of heart failure Mild elevation in LFTs, continue to monitor Paroxysmal atrial flutter, back to sinus rhythm. Continue to monitor MARY COREA Jul 29, 2020 08:50 LENARD HUDSON MD Jul 29, 2020 09:11
[2020-07-29] MEDS ORDERED: ENOXAPARIN 40 MG/0.4 ML (LOVENOX) SYR SC SCH (12:00)
[2020-07-29] MEDS ORDERED: CATHETER FLUSH 10 ML SYR IV PRN (12:15)
--- NOTE | 2020-07-29 12:37 | History & Physical ---
History of Present Illness HPI/Chief Complaint CC: Respiratory distress HPI: This is a 75yoWM who was moved from IRF urgently due to hypercapnia respiratory failure. Patient had done well in IRF and had an abrupt change. Dr Davis consulted and placed on biPAP. Patient very declined on my assessment. Aortic stenosis is severe and Cardiology consulted for possible valve replacement transfer. Patient had a short hospital course after admitted after lengthy stay at [facility] [place] for resistant UTI and PNA then moved to [facility] for AF w/RVR new onset and C diff then became debilitated requiring IRF prior to DC home on but patient had abrupt change of status with hypercapnia requiring transfer to [facility] and Dr Davis consultation. Patient had been improving and abrupt change was unexpected. Source: patient Exam Limitations: clinical condition Date Seen 07/29/20 Time Seen by a Provider: 12:00 Attending Physician Virginia Sharma Jay L MD Referring Physician Date of Admission Jul 29, 2020 at 07:25 Home Medications & Allergies Home Medications Reviewed patient Home Medication Reconciliation performed by pharmacy medication reconciliations satellite installation technician and/or nursing. Patients Allergies have been reviewed. Allergies Allergies Coded Allergies No Known Drug Allergies (Unverified11/11/19) Past Jxljglw-Nlcehi-Yectey Hx Past Med/Social Hx: Reviewed Nursing Past Med/Soc Hx, Reviewed and Corrections made Patient Social History Marrital Status: single Employed/Student: retired Alcohol Use: Denies Use Smoking Status: Former Smoker 2nd Hand Smoke Exposure: No Recent Foreign Travel: No Contact w/other who traveled: No Recent Hopitalizations: Yes Recent Infectious Disease Expo: No Immunizations Up To Date Tetanus Booster (TDap): Unknown Date of Pneumonia Vaccine: Jun 08, 2013 Date of Influenza Vaccine: Jun 13, 2020 Seasonal Allergies Seasonal Allergies: No Past Medical History Surgeries: Amputation, Orthopedic, Prostatectomy Respiratory: Pneumonia Currently Using CPAP: No Currently Using BIPAP: No Cardiac: Atrial Fibrillation, Heart Murmur, High Cholesterol, Hypertension aortic stenosis Neurological: Neuropathy, TIA Sexually Transmitted Disease: No HIV/AIDS: No Genitourinary: Benign Prostatic Hyperpl, Bladder Infection, Neurogenic Bladder Musculoskeletal: Amputee Endocrine: Diabetes, Insulin dep HEENT: Cataract Cancer: Colon Did You Recieve Any Treatments: Yes What Type of Treatment Did You: Chemotherapy, Surgical Intervention History of Blood Disorders: No Adverse Reaction to Blood Maki: No (HAS HAD BLOOD WITH NO REACTION) Family History Patient reports no known family medical history. No Pertinent Family Hx Review of Systems Constitutional: see HPI Respiratory: dyspnea on exertion, short of breath Physical Exam Physical Exam Vital Signs Vital Signs - First Documented 07/29/20 07/29/20 07:45 11:45 Temp 36.1 Pulse 96 Resp 18 B/P (MAP) 95/55 (68) Pulse Ox 91 O2 Delivery High Flow N/C O2 Flow Rate 15.00 FiO2 70 Capillary Refill : Height, Weight, BMI Height: 6'2.00" Weight: 201lbs. 5.0oz. 91.590438yt; 35.26 BMI Method:Stated General Appearance: Anxious, Chronically ill, Moderate Distress HEENT: PERRL/EOMI, Pharynx Normal Neck: Full Range of Motion, Non Tender Respiratory: Chest Non Tender, Accessory Muscle Use, Decreased Breath Sounds, Rales; No Wheezing Cardiovascular: Regular Rate, Rhythm, Systolic Murmur Extremity: Non Tender, Other (Bilateral BKA) Neurologic/Psychiatric: Alert, Oriented x3 Results Results/Procedures Labs Laboratory Tests 07/29/20 12:59 Patient resulted labs reviewed. Assessment/Plan Admission Diagnosis Assessment: Resp failure Hypercapnia PNA Aortic stenosis Plan: CSD biPAP Prognosis guarded Admission Status: Inpatient Order (span 2 midnights) Reason for Inpatient Admission: resp failre Clinical Quality Measures DVT/VTE Risk/Contraindication: Risk Factor Score Per Nursin RFS Level Per Nursing on Admit: 4+=Very High VIRGINIA SHARMA DO Jul 29, 2020 12:37
[2020-07-29] MEDS: VANCOMYCIN 125 MG CAPSULE PO SCH ×2 (12:59→17:13)
[2020-07-29 13:24] LABS: BASOPHILS % (AUTO) 0 % (0-10); EOSINOPHILS % (AUTO) 0 % (0-10); HEMATOCRIT 28 % (40-54); LYMPHOCYTES # (AUTO) 0.7 10^3/uL (1.0-4.0); LYMPHOCYTES % (AUTO) 5 % (12-44); MEAN CORPUSCULAR HEMOGLOBIN 26 pg (25-34); MEAN CORPUSCULAR HGB CONC 29 g/dL (32-36); MEAN CORPUSCULAR VOLUME 91 fL (80-99); MEAN PLATELET VOLUME 11.5 fL (9.0-12.2); MONOCYTES # (AUTO) 0.8 10^3/uL (0.0-1.0); MONOCYTES % (AUTO) 6 % (0-12); NEUTROPHILS % (AUTO) 88 % (42-75); PLATELET COUNT 223 10^3/uL (130-400); WHITE BLOOD COUNT 13.6 10^3/uL (4.3-11.0)
[2020-07-29 13:40] LABS: ALBUMIN 2.3 GM/DL (3.2-4.5); CHLORIDE 88 MMOL/L (98-107); SODIUM 137 MMOL/L (135-145)
[2020-07-29 13:42] LABS: CALCIUM 8.1 MG/DL (8.5-10.1)
[2020-07-29 13:43] LABS: GLUCOSE 247 MG/DL (70-105); TOTAL PROTEIN 5.6 GM/DL (6.4-8.2)
[2020-07-29 13:44] LABS: CARBON DIOXIDE 41 MMOL/L (21-32)
[2020-07-29 13:45] LABS: BILIRUBIN,TOTAL 0.4 MG/DL (0.1-1.0)
[2020-07-29 13:46] LABS: ALKALINE PHOSPHATASE 171 U/L (40-136); PHOSPHORUS 4.6 MG/DL (2.3-4.7)
[2020-07-29 13:47] LABS: GFR ESTIMATED > 60
[2020-07-29 13:48] LABS: BUN/CREATININE RATIO 29
[2020-07-29 13:49] LABS: ALANINE AMINOTRANSFERASE 107 U/L (0-55)
[2020-07-29] MEDS: CATHETER FLUSH 10 ML SYR IV SCH ×2 (14:52→22:33)
--- NOTE | 2020-07-29 15:21 | Pulmonary Consultation ---
History of Present Illness History of Present Illness Date Seen by Provider: Jul 29, 2020 Time Seen by Provider: 15:13 Date of Admission History of Present Illness Patient is a 75yo male with a PMH of PAF, HTN, aortic stenosis, IDDM, and colon cancer who was recently admitted to [facility] for complicated UTI and was transferred back to [facility] due to new onset A-fib. [place] [facility]ezing and CXR was suggestive of PNA. Per cardiology he was started on Card izem and metoprolol, and anticoagulation. He was then diagnosed with C. diff colitis and completed a course of vancomycin. He had been progressing in IRF until he developed respiratory distress this morning. He was placed on 15L O2 via NC and transferred to cardiac step-down unit. Allergies and Home Medications Allergies Coded Allergies: No Known Drug Allergies (Unverified , 11/11/19) Home Medications Clopidogrel Bisulfate 75 Mg Tablet, 75 MG PO DAILY, (Reported) Insulin NPH Human Isophane 100 Unit/1 Ml Vial, 33 UNITS SQ DAILY, (Reported) Insulin NPH Human Isophane 100 Unit/1 Ml Vial, 20 UNITS SQ 1930, (Reported) Insulin Regular, Human 100 Unit/1 Ml Vial, 6 UNITS SQ DAILY, (Reported) Insulin Regular, Human 100 Unit/1 Ml Vial, 5 UNITS SQ 1930, (Reported) Levofloxacin 500 Mg Tablet, 500 MG PO DAILY, (Reported) FILLED 07-12-2020 #6/6 DAY SUPPLY Lisinopril 20 Mg Tablet, 20 MG PO DAILY, (Reported) Simvastatin 20 Mg Tablet, 20 MG PO HS, (Reported) [Bethanechol Chloride] 50 TAB, 50 MG PO QID, (Reported) Past Mkhownv-Stirkh-Xhdysm Hx Patient Social History 2nd Hand Smoke Exposure: No Recent Foreign Travel: No Contact w/Someone Who Travel: No Recent Infectious Disease Expo: No Recent Hopitalizations: Yes Immunizations Up To Date Tetanus Booster (TDap): Unknown Date of Pneumonia Vaccine: Jun 08, 2013 Date of Influenza Vaccine: Jun 13, 2020 Seasonal Allergies Seasonal Allergies: No Past Medical History Surgeries: Yes (BILAT BKA, SEVERAL I&D'S, COLECTOMY WTIH RETURN TO SURGERY, colon resection) Amputation, Orthopedic, Prostatectomy Respiratory: Yes (Pt states he was COVID + in June, out of quarantine now) Pneumonia Currently Using CPAP: No Currently Using BIPAP: No Cardiac: Yes (heart murmur) Atrial Fibrillation, Heart Murmur, High Cholesterol, Hypertension Neurological: Yes (RT HAND WEAKNESS/TREMORS SINCE TIA) Neuropathy, TIA Sexually Transmitted Disease: No HIV/AIDS: No Genitourinary: Yes Benign Prostatic Hyperpl, Bladder Infection, Neurogenic Bladder Gastrointestinal: Yes (COLON CANCER) Musculoskeletal: Yes (BILATERAL LOWER EXTREMITY ABOVE ANKLE AMPUTEE) Amputee Endocrine: Yes Diabetes, Insulin dep HEENT: Yes (WEARS READING GLASSES) Cataract Cancer: Yes Colon Did You Recieve Any Treatments: Yes What Type of Treatment Did You: Chemotherapy, Surgical Intervention Psychosocial: No Integumentary: No Blood Disorders: No Adverse Reaction/Blood Tranf: No (HAS HAD BLOOD WITH NO REACTION) Family Medical History Patient reports no known family medical history. No Pertinent Family Hx Review of Systems Time Seen by Provider: 15:22 Sepsis Event Evaluation Height, Weight, BMI Height: 6'2.00" Weight: 201lbs. 5.0oz. 91.190378kn; 35.26 BMI Method:Stated Exam Exam Vital Signs Date Time Temp Pulse Resp B/P (MAP) Pulse Ox O2 Delivery O2 Flow Rate FiO2 07/29/20 12:08 36.4 93 20 96/67 (77) 96 High Flow N/C 15.00 07/29/20 12:00 94 Vapotherm 30.00 70 07/29/20 11:45 94 Vapotherm 30.00 70 07/29/20 10:19 95 Nasal Cannula 10.00 07/29/20 09:54 36.4 96 22 107/68 95 Nasal Cannula 6.00 07/29/20 07:45 36.1 96 18 95/55 (68) 91 High Flow N/C 15.00 Height & Weight Height: 6'2.00" Weight: 201lbs. 5.0oz. 91.153962ly; 35.26 BMI Method:Stated General Appearance: No Apparent Distress, Chronically ill HEENT: PERRL/EOMI, Pharynx Normal Neck: Full Range of Motion, Non Tender Respiratory: Chest Non Tender, No Accessory Muscle Use, Rales; No Wheezing Cardiovascular: Regular Rate, Rhythm, Systolic Murmur Gastrointestinal: non tender, soft Extremity: Non Tender, Other (Bilateral BKA) Neurologic/Psychiatric: Alert, Oriented x3 Results Lab Laboratory Tests 07/29/20 12:59 Assessment/Plan Assessment/Plan Acute respiratory distress -pt transferred to ICU -Check BNP -Stat CXR -Lasix 40mg x 1 resolving Pneumonia -S/p Recent abx therapy CDIFF -Restart PO Vanco Anemia -Monitor P Afib -Cardiolgoy following Aortic stenosis -Echo07/14 EF 55-65% Elevated LFT's, History of sigmoid colon resection, had adhesion managed in August 2019. 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 History of TIA in 2003 at [facility]. Currently on apixaban stroke prophylaxis JEFFERY MIR DO Jul 29, 2020 15:21
[2020-07-29] MEDS ORDERED: FUROSEMIDE 40 MG/4 ML INJ (LASIX) IVP SCH (17:00)
[2020-07-29 17:13] LABS: BILIRUBIN,URINE NEGATIVE (NEGATIVE); COLOR,URINE YELLOW; GLUCOSE, URINE (UA) NEGATIVE (NEGATIVE); KETONES,URINE NEGATIVE (NEGATIVE); LEUKOCYTE ESTERASE ,URINE TRACE (NEGATIVE); NITRITE,URINE POSITIVE (NEGATIVE); PROTEIN,URINE 1+ (NEGATIVE)
[2020-07-29] MEDS ORDERED: RT-ALBUTEROL/IPRATROPIUM 3 ML (DUONEB) VIAL INH PRN ×2 (17:15→21:30)
[2020-07-29 17:21] LABS: CLARITY,URINE SL CLOUDY
[2020-07-29 17:23] LABS: BACTERIA,URINE LARGE /HPF; HYALINE CASTS, URINE 0-2 /LPF; RBC,URINE 0-2 /HPF; SQUAMOUS EPITHELIAL CELL,UR RARE /HPF; WBC,URINE 25-50 /HPF
[2020-07-29] MEDS ORDERED: RT-ALBUTEROL/IPRATROPIUM 3 ML (DUONEB) VIAL INH SCH (21:00)
[2020-07-29] MEDS ORDERED: DOCUSATE SODIUM 100 MG (COLACE) CAP PO SCH (21:00)
--- NOTE | 2020-07-29 21:10 | NUR ---
PT ON BI-PAP AT 100% AND SATS IN THE 80"S. NIECE CALLED AND ASKED IF HE WOULD WANT INTUBATED, SHE SAID ABSOLUTLY NOT
--- NOTE | 2020-07-29 21:19 | NUR ---
DR SMITH NOTIFIED OF PT CONDITION AND CESAR COMMENT . COMFORT CARE ORDERS OBTAINED.
[2020-07-29] MEDS ORDERED: morphine INJ 4 MG/ML 1 ML (VIAL/SYRINGE) ONE (21:27)
[2020-07-29] MEDS ORDERED: ARTIFICAL TEARS 0.4 ML UNIT DOSE (REFRESH PLUS) OU PRN (21:30)
[2020-07-29] MEDS ORDERED: SALIVA STIMULANT MOUTH SPRAY (BIOTENE) 1.5 OZ MM PRN (21:30)
[2020-07-29] MEDS ORDERED: morphine INJ 4 MG/ML 1 ML (VIAL/SYRINGE) IV PRN (21:30)
[2020-07-29] MEDS ORDERED: GLYCOPYRROLATE 0.2 MG/ML (ROBINUL) 2 ML VIAL IV PRN (21:30)
[2020-07-29] MEDS ORDERED: BISACODYL 10 MG SUPP (DULCOLAX) PR PRN (21:30)
[2020-07-29] MEDS ORDERED: LORazepam INJ 2 MG/ML (ATIVAN) VIAL IVP PRN (21:30)
[2020-07-29] MEDS ORDERED: ACETAMINOPHEN 650 MG SUPP (TYLENOL) PR PRN (21:30)
[2020-07-29] MEDS ORDERED: ONDANSETRON 4 MG/2 ML (SDV) Z0FRAN IVP PRN (21:30)
[2020-07-29] MEDS ORDERED: PROMETHAZINE INJ 25 MG/ML (PHENERGAN) AMP IVP PRN (21:30)
--- NOTE | 2020-07-29 21:35 | NUR ---
O2 SWITCHED TO NC AND MORPHINE 2 MG GIVEN IV. REPORT TO TRICIA WOO TO ASSUME CARE
--- NOTE | 2020-07-29 21:40 | NUR ---
Assumed care of patient. Agree with previous nurse AMNA Perezgold cutter of patient.Will continue to monitor
--- NOTE | 2020-07-29 22:50 | NUR ---
Patient shows no signs of life at this time. No heart beat detected, respirations have ceased. Notified Dr Sharma.
--- NOTE | 2020-07-30 01:01 | NUR ---
home picked up patient with all belongings. Clothing, Watch, Dentures, Prosthetic legs
--- NOTE | 2020-07-30 05:27 | Discharge Summary ---
Diagnosis/Chief Complaint Date of Admission Jul 29, 2020 at 07:25 Date of Discharge Jul 30, 2020 at 01:01 Discharge Diagnosis Respiratory failure Severe aortic stenosis PNA CHF AF Discharge Summary Discharge Physical Examination Allergies: Coded Allergies: No Known Drug Allergies (Unverified , 11/11/19) Vitals & I&Os Vital Signs Date Time Temp Pulse Resp B/P (MAP) Pulse Ox O2 Delivery O2 Flow Rate FiO2 07/29/20 22:00 77 125/66 (85) 79 NIV Bilevel 65.00 07/29/20 21:16 32 07/29/20 20:00 80 07/29/20 19:20 36.0 Hospital Course Was the Problem List Reviewed?: Yes Beif course after moved to [facility] urgently due to resp failure and hypercapnia. Dr Davis consulted but patient declined further and patient was deemed comfort care and quickly. Labs (last 24 hrs) Laboratory Tests 07/29/20 12:59: White Blood Count 13.6H, Red Blood Count 3.04L, Hemoglobin 8.0L, Hematocrit 28L, Mean Corpuscular Volume 91, Mean Corpuscular Hemoglobin 26, Mean Corpuscular Hemoglobin Concent 29L, Red Cell Distribution Width 20.4H, Platelet Count 223, Mean Platelet Volume 11.5, Immature Granulocyte % (Auto) 1, Neutrophils (%) (Auto) 88H, Lymphocytes (%) (Auto) 5L, Monocytes (%) (Auto) 6, Eosinophils (%) (Auto) 0, Basophils (%) (Auto) 0, Neutrophils # (Auto) 12.0H, Lymphocytes # (Auto) 0.7L, Monocytes # (Auto) 0.8, Eosinophils # (Auto) 0.0, Basophils # ( Auto) 0.0, Immature Granulocyte # (Auto) 0.2H, Sodium Level 137, Potassium Level 4.0, Chloride Level 88L, Carbon Dioxide Level 41H, Anion Gap 8, Blood Urea Nitrogen 26H, Creatinine 0.90, Estimat Glomerular Filtration Rate > 60, BUN/Creatinine Ratio 29, Glucose Level 247H, Calcium Level 8.1L, Corrected Calcium 9.5, Phosphorus Level 4.6, Magnesium Level 2.0, Total Bilirubin 0.4, Aspartate Amino Transf (AST/SGOT) 168H, Alanine Aminotransferase (ALT/SGPT) 107H , Alkaline Phosphatase 171H, Troponin I 0.160H, B-Type Natriuretic Peptide 1980.5H, Total Protein 5.6L, Albumin 2.3L 07/29/20 13:28: Lactic Acid Level 1.04 07/29/20 16:03: Glucometer 237H 07/29/20 16:06: Urine Color YELLOW, Urine Clarity SL CLOUDY, Urine pH 6.0, Urine Specific [place] >=1.030, Urine Protein 1+H, Urine Glucose (UA) NEGATIVE, Urine Ketones NEGATIVE, Urine Nitrite POSITIVEH, Urine Bilirubin NEGATIVE, Urine Urobilinogen 0.2, Urine Leukocyte Esterase TRACEH, Urine RBC (Auto) 2+H, Urine RBC 0-2, Urine WBC 25-50H, Urine Squamous Epithelial Cells RARE, Urine Crystals NONE, Urine Bacteria LARGEH, Urine Casts PRESENT, Urine Hyaline Casts 0-2H, Urine Mucus MODERATEH, Urine Culture Indicated YES 07/29/20 20:41: Glucometer 250H Pending Labs Laboratory Tests 07/29/20 12:59: White Blood Count 13.6, Red Blood Count 3.04, Hemoglobin 8.0, Hematocrit 28, Mean Corpuscular Volume 91, Mean Corpuscular Hemoglobin 26, Mean Corpuscular Hemoglobin Concent 29, Red Cell Distribution Width 20.4, Platelet Count 223, Mean Platelet Volume 11.5, Immature Granulocyte % (Auto) 1, Neutrophils (%) (Auto) 88, Lymphocytes (%) (Auto) 5, Monocytes (%) (Auto) 6, Eosinophils (%) (Auto) 0, Basophils (%) (Auto) 0, Neutrophils # (Auto) 12.0, Lymphocytes # (Auto) 0.7, Monocytes # (Auto) 0.8, Eosinophils # (Auto) 0.0, Basophils # (Auto) 0.0, Immature Granulocyte # (Auto) 0.2, Sodium Level 137, Potassium Level 4.0, Chloride Level 88, Carbon Dioxide Level 41, Anion Gap 8, Blood Urea Nitrogen 26, Creatinine 0.90, Estimat Glomerular Filtration Rate > 60, BUN/Creatinine Ratio 29, Glucose Level 247, Calcium Level 8.1, Corrected Calcium 9.5, Phosphorus Level 4.6, Magnesium Level 2.0, Total Bilirubin 0.4, Aspartate Amino Transf (AST/SGOT) 168, Alanine Aminotransferase (ALT/SGPT) 107, Alkaline Phosphatase 171, Troponin I 0.160, B-Type Natriuretic Peptide 1980.5, Total Protein 5.6, Albumin 2.3 07/29/20 13:28: Lactic Acid Level 1.04 07/29/20 16:03: Glucometer 237 07/29/20 16:06: Urine Color YELLOW, Urine Clarity SL CLOUDY, Urine pH 6.0, Urine Specific [place] >=1.030, Urine Protein 1+, Urine Glucose (UA) NEGATIVE, Urine Ketones NEGATIVE, Urine Nitrite POSITIVE, Urine Bilirubin NEGATIVE, Urine Urobilinogen 0.2, Urine Leukocyte Esterase TRACE, Urine RBC (Auto) 2+, Urine RBC 0-2, Urine WBC 25-50, Urine Squamous Epithelial Cells RARE, Urine Crystals NONE, Urine Bacteria LARGE, Urine Casts PRESENT, Urine Hyaline Casts 0-2, Urine Mucus MODERATE, Urine Culture Indicated YES 07/29/20 20:41: Glucometer 250 Discharge Home Medications: Active Scripts Active Reported Levofloxacin 500 Mg Tablet 500 Mg PO DAILY FILLED 07-12-2020 #6/6 DAY SUPPLY [Bethanechol Chloride] 50 Tab 50 Mg PO QID Plavix (Clopidogrel Bisulfate) 75 Mg Tablet 75 Mg PO DAILY Novolin R (Insulin Regular, Human) 100 Unit/1 Ml Vial 5 Units SQ 1930 Novolin N (Insulin NPH Human Isophane) 100 Unit/1 Ml Vial 20 Units SQ 1930 Lisinopril 20 Mg Tablet 20 Mg PO DAILY Simvastatin 20 Mg Tablet 20 Mg PO HS Novolin R (Insulin Regular, Human) 100 Unit/1 Ml Vial 6 Units SQ DAILY Novolin N (Insulin NPH Human Isophane) 100 Unit/1 Ml Vial 33 Units SQ DAILY Instructions to patient/family Please see electronic discharge instructions given to patient. Clinical Quality Measures DVT/VTE Risk/Contraindication: Risk Factor Score Per Nursin RFS Level Per Nursing on Admit: 4+=Very High YAAKOV SMITH DO Jul 30, 2020 05:27
[2020-07-30] MEDS ORDERED: FUROSEMIDE 40 MG/4 ML INJ (LASIX) IVP SCH (09:00)
== END 2020-07-30 01:01 | disposition expired | DRG 189 ==
LOC: CSD 07:25
PROVIDERS: ADMIT Internal Medicine; ATTEND Internal Medicine
DX: J96.92 Respiratory failure, unspecified with hypercapnia (principal); J18.9 Pneumonia, unspecified organism; I50.9 Heart failure, unspecified; I35.0 Nonrheumatic aortic (valve) stenosis; Z66 Do not resuscitate; I11.0 Hypertensive heart disease with heart failure; Z51.5 Encounter for palliative care; I48.0 Paroxysmal atrial fibrillation; Z87.891 Personal history of nicotine dependence; E78.00 Pure hypercholesterolemia, unspecified; E11.42 Type 2 diabetes mellitus with diabetic polyneuropathy; N40.0 Benign prostatic hyperplasia without lower urinary tract symptoms; Z79.4 Long term (current) use of insulin; Z86.73 Personal history of transient ischemic attack (TIA), and cerebral infarction without residual deficits
CPT/HCPCS: 36415; 80053; 81000; 82962; 83605; 83735; 83880; 84100; 84484; 85025; 87040; 87077; 87088; 87186; 93306; 94640; 94660